=== PATIENT | male | born 1950 | race Caucasian/White ===

== ENCOUNTER 2019-05-25 03:12 | Inpatient (IN) | payer MEDICARE, MEDICAID ==
[~2019-05-25] VITALS: Ht 182.9 cm; Wt 67.3 kg
[~2019-05-25 03:12] MED LIST: ACET325T38 PO; ACHD5005 PO; ACYC400T21 PO; AMIN30LI PO; ASCO-262 PO; ASP325TEC PO; ASPI-808 PO; CALC-140 PO; CALC-913 PO; CHOL100045 PO; CLON1TAB27 PO; CLON2TAB22 PO; DEXT37.54 PO; DIVA125C PO; DONE5TAB8 PO; ESCI20TA45 PO; GABA300C PO; GLUC1KIT IJ; HYDR-757 PO; MAGN800O PO; MEMA10TA2 PO; MIRT15TA3 PO; MULT1TAB69 PO; POTA20TA15 PO; PRD20T PO; RISP2TAB3 PO; SENN-145 PO; TRAZ-190 PO; ZINC50TA58 PO
--- OUTSIDE RECORDS SUMMARY | 2019-05-25 03:18 | XMS REPORT | Clinical Summary ---
Author Author [facility] Organization [facility] Address Unknown Phone Unavailable Care Team Providers Care Felt Cementer Name Role Phone Ramsey Valladares MD PP Allergies Comments Active Allergy Reactions Severity Noted Date "get's real goofy & I'm not really nice to people". Haloperidol Decanoate 04/23/2011 Medications End Date Status Medication Sig Dispensed Refills Start Date Active donepezil (ARICEPT) 10 MG Take 10 mg by 0 tabletIndications: mouth daily. dementia Indications: dementia Active acetaminophen (TYLENOL) Take 650 mg 0 325 MG tabletIndications: by mouth Fever, Pain every 6 (six) hours as needed. 650 mg=2 tabs Indications: Fever, Pain Active magnesium hydroxide Take 30 mLs 0 (MAGNESIUM HYDROXIDE by mouth CONCENTRATED) 400 MG/5ML nightly as suspensionIndications: needed. Constipation Indications: Constipation Active Cholecalciferol (VITAMIN Take 1 0 D3) 1000 UNITS capsule by CAPSIndications: mouth daily. Nutritional Support Indications: Nutritional Support Active Calcium Carbonate Take 1 0 (CALCIUM 600 capsule by PO)Indications: mouth 2 (two) Nutritional Support times daily. Indications: Nutritional Support Active memantine (NAMENDA) 10 MG Take 10 mg by 0 tablet mouth 2 (two) times daily. Active LANTUS, insulin glargine, Inject 25 0 (LANTUS) 100 UNIT/ML Units into 2 injection the skin nightly. Active clonazePAM (KLONOPIN) 1 Take 1 mg by 0 MG tablet mouth daily. Active clonazePAM (KLONOPIN) 1 Take 2 mg by 0 MG tablet mouth every evening. 2 tab=2 mg Active hydrOXYzine (ATARAX) 25 Take 25 mg by 0 MG tablet mouth 4 (four) times daily. Active gabapentin (NEURONTIN) Take 300 mg 0 300 MG capsule by mouth 3 (three) times daily. Active potassium chloride SA Take 20 mEq 0 (K-DUR,KLOR-CON) 20 MEQ by mouth 2 tablet (two) times daily. Active Gabapentin, PHN, 600 MG Take 1 0 TABS capsule by mouth nightly. Active traZODone (DESYREL) 50 MG Take 50 mg by 0 tablet mouth nightly. Active LORazepam (ATIVAN) 2 Inject 1 mg 0 MG/ML into the injectionIndications: muscle daily Anxiety as needed. Indications: Feeling Anxious Active escitalopram (LEXAPRO) 10 Take 10 mg by 0 MG tablet mouth daily. Active permethrin (ELIMITE) 5 % Apply cream 60 g 0 cream to entire 3 body and wash off after 8 hrs . 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 Intramedullary Fixation 01/25/2012 Fracture, intertrochanteric, left femur 01/24/2013 Agitation 10/18/2012 Acute psychosis 08/01/2012 Accelerated hypertension 03/19/2012 DM (diabetes mellitus), type 2, uncontrolled 03/19/2012 CVA (cerebral vascular accident) 03/19/2012 Overview: New area diffusion restriction and associated T1 and T2 signal changes are present in the posterior left temporal lobe consistent with subacute infarct on MRI performed 08/05/2012 Depression 03/19/2012 Cognitive disorder 03/19/2012 Cocaine abuse 03/19/2012 Bipolar affective disorder 12/24/2011 Bipolar affective 05/07/2011 Vascular dementia 05/07/2011 History of CVA (cerebrovascular accident) 05/05/2011 Acute delirium 04/24/2011 Atherosclerotic cerebrovascular disease 04/24/2011 HTN (hypertension) 04/24/2011 Type II or unspecified type diabetes mellitus without mention of complication, not stated as uncontrolled Other problems related to lifestyle Other and unspecified hyperlipidemia Resolved Problems Problem Noted Date Resolved Date Suicidal ideations 03/19/2012 08/11/2012 DM (diabetes mellitus) 04/24/2011 10/17/2012 Immunizations Name Administration Dates Next Due Influenza IIV3 PFree 10/22/2012, 08/28/2011, 10/13/2008 Pneumococcal 10/22/2012, 06/25/2009 Polysaccharide (23-valent) Td(adult), adsorbed 04/03/2014, 06/25/2009 Social History Date Tobacco Use Types Packs/Day Years Used Current Every Day Smoker Cigarettes 0.25 Comments: Smoking History Packs/day: Daily/Cigarettes/1 pack Drinks/Week oz/Week Comments Alcohol Use No Control Partners Comments Sexually Active Female Not Currently Sex Assigned at Date Recorded Not on file Industry Job Start Date Occupation Not on file Not on file Not on file Travel End Travel History Travel Start No recent travel history available. Last Filed Vital Signs Reading Time Taken Comments Vital Sign 140/92 04/04/2013 10:26 PM CDT Blood Pressure 97 04/04/2013 10:26 PM CDT Pulse 36.7 C (98 F) 04/04/2013 10:26 PM CDT Temperature 18 04/04/2013 10:26 PM CDT Respiratory Rate 98% 04/04/2013 10:26 PM CDT Oxygen Saturation - - Inhaled Oxygen Concentration 77.1 kg (170 lb) 04/04/2013 4:58 PM CDT Weight 175.3 cm (5' 9") 04/04/2013 4:58 PM CDT Height 25.1 04/04/2013 4:58 PM CDT Body Mass Index Plan of Treatment Health Maintenance Due Date Last Done Comments Hepatitis C Screening 1950 Zoster Recombinant 1999 Vaccine (RZV,Shingrix) (1 of 2 - SVH 2 Dose Standard) Colon Cancer Screening 06/29/2013 06/29/2003, 06/29/2003 DTaP,Tdap,and Td Vaccines 04/04/2014 04/03/2014, 06/25/2009 (1 - Tdap) Pneumo-Vaccine: 65+Yrs (1 2014 10/22/2012, 06/25/2009 of 2 - PCV13) Influenza Vaccine (#1) 2019 10/22/2012, 08/28/2011, 10/13/2008 Pneumo-Vaccine: Peds (0-5 Aged Out 10/22/2012, 06/25/2009 No longer eligible based Yrs) & At-Risk Patients on patient's age to (6-64 Yrs) complete this topic Results Not on filefrom Last 3 Months Advance Directives Patient Medical Assistant Float Explanation Type Date Recorded ADVANCED DIRECTIVE LIVING WILL Advance Directives 08/10/2012 4:45 PM and Living Will ADVANCED DIRECTIVE LIVING WILL Advance Directives 08/24/2012 9:42 PM and Living Will ADVANCED DIRECTIVE LIVING WILL Advance Directives 10/24/2012 9:28 PM and Living Will Date Inactivated Comments Code Status Date Activated 10/24/2012 5:38 PM Full Code 10/17/2012 8:10 PM 08/24/2012 6:13 PM Full Code 08/10/2012 2:28 PM 08/10/2012 2:28 PM Full Code 08/01/2012 9:17 PM 05/06/2011 12:24 PM Full Code 04/23/2011 8:33 PM
--- OUTSIDE RECORDS SUMMARY | 2019-05-25 03:19 | XMS REPORT | Encounter Summary ---
Author Author [facility] Organization [facility] Address Unknown Phone Unavailable Care Team Providers Care Check Writer Salesperson Name Role Phone Ramsey Valladares MD PCP Encounter Details Care Team Description Date Type Department Provider, MD [address] [facility] [place] [address] 04/21/2013 [facility] HISTORICAL CONVERSION Encounter Social History Date Tobacco Use Types Packs/Day Years Used Current Every Day Smoker Cigarettes 0.25 Smokeless Tobacco: Never Used Drinks/Week oz/Week Comments Alcohol Use No Control Partners Comments Sexually Active Female Not Currently Sex Assigned at Date Recorded Not on file Industry Job Start Date Occupation Not on file Not on file Not on file Travel End Travel History Travel Start No recent travel history available. documented as of this encounter Plan of Treatment Not on filedocumented as of this encounter Visit Diagnoses Not on filedocumented in this encounter
--- OUTSIDE RECORDS SUMMARY | 2019-05-25 03:19 | XMS REPORT | Encounter Summary ---
Author Author [facility] Organization [facility] Address Unknown Phone Unavailable Care Team Providers Care Operations Associate Name Role Phone Ramsey Valladares MD PCP Encounter Details Care Team Description Date Type Department Link, Onbase 04/04/2013 [facility] Scans HISTORICAL CONVERSION Social History Date Tobacco Use Types Packs/Day [...] Not on filedocumented as of this encounter Procedures Comments Procedure Name Priority Date/Time Associated Diagnosis IMAGING STUDY 04/23/2013 12:32 PM CDT documented in this encounter Results * IMAGING STUDY (04/23/2013 12:32 PM CDT) Narrative Performed At Procedure Note Historical, [facility] Documents - 04/22/2013 6:08 AM CDT documented in this encounter Visit Diagnoses Not on filedocumented in this encounter
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
--- OUTSIDE RECORDS SUMMARY | 2019-05-25 03:19 | XMS REPORT | Encounter Summary ---
Author Author [facility] Organization [facility] Address Unknown Phone Unavailable Care Team Providers Care Maintenance Pipefitter Name Role Phone Ramsey Valladares MD PCP Encounter Details Care Team Description Date Type Department Historical, Zeny ProviderMD [address] Address [place] [address] 04/04/2013 [facility] HISTORICAL CONVERSION Encounter Social History Date Tobacco [...] Name Priority Date/Time Associated Diagnosis CT HEAD Routine 04/04/2013 documented in this encounter Results * CT HEAD (04/04/2013) CT Head Comment: Updated from [facility] History Specimen Performing Organization Address City/State/Zipcode Phone Number [facility] [address] [place] [address] documented in this encounter Visit Diagnoses Not on filedocumented in this encounter
--- OUTSIDE RECORDS SUMMARY | 2019-05-25 03:19 | XMS REPORT | Encounter Summary ---
Author Author [facility] Organization [facility] Address Unknown Phone Unavailable Care Team Providers Care Pig Breeder Name Role Phone Ramsey Valladares MD PCP Encounter Details Care Team Description Date Type Department Trihs Santiago RN 08/23/2014 Abstract [facility] [address], [place] [id number] Social History Date Tobacco Use Types Packs/Day [...] Comments Procedure Name Priority Date/Time Associated Diagnosis EKG 12-LEAD Routine 04/04/2013 XR CHEST Routine 01/24/2013 LVEF Routine 08/06/2012 US CAROTID DOPPLER Routine 08/06/2012 ECHOCARDIOGRAM Routine 08/06/2012 COLONOSCOPY Routine 06/29/2003 documented in this encounter Results * EKG 12-LEAD (04/04/2013) EKG 12-LEAD from topics * XR CHEST (01/24/2013) XR Chest from topics * LVEF (08/06/2012) Pathologist [facility] LVEF Cath LVEF CT LVEF Echo LVEF MR LVEF Nuclear LVEF 60 * ECHOCARDIOGRAM (08/06/2012) Pathologist [facility] from topics ECHOCARDIOGRAM * US CAROTID DOPPLER (08/06/2012) Pathologist [facility] US Carotid from topics Doppler * COLONOSCOPY (06/29/2003) Pathologist [facility] Colonoscopy from topics documented in this encounter Visit Diagnoses Not on filedocumented in this encounter
--- OUTSIDE RECORDS SUMMARY | 2019-05-25 03:20 | XMS REPORT | Encounter Summary ---
Author Author [facility] Organization [facility] Address Unknown Phone Unavailable Care Team Providers Care Central Processing Tech Name Role Phone Ramsey Valladares MD PCP Reason for Visit * Reason Comments Fall Encounter Details Care Team Description Date Type Department Manjit Artis MD [address] [place], [place] [id number] Bryon Flaherty, [address] [place], [place] [id number] Sydnie Avery MD [address] [place] [address] Femur fracture (HCC) (Primary Dx); Inferior pubic ramus fracture (HCC); Fall from other slipping, tripping, or stumbling 01/24/2013 [facility] En[facility] 01/27/[address] [id number] [place], [place] [id number] Social History Date Tobacco Use Types Packs/Day [...] Signs Reading Time Taken Comments Vital Sign 105/76 01/27/2013 12:00 PM CDT Blood Pressure 107 01/27/2013 12:00 PM CDT Pulse 37 C (98.6 F) 01/27/2013 12:00 PM CDT Temperature 20 01/27/2013 12:00 PM CDT Respiratory Rate 93% 01/27/2013 12:00 PM CDT Oxygen Saturation - - Inhaled Oxygen Concentration 72.8 kg (160 lb 6.4 oz) 01/27/2013 3:29 AM CDT std. linens; call light; phone Weight 188 cm (6' 2") 01/27/2013 3:29 AM CDT Height 20.59 01/27/2013 3:29 AM CDT Body Mass Index documented in this encounter Discharge Summaries * Daniel Kahn PA-C - 01/30/2013 7:57 AM CDT [place] [phone] Orthopedic Surgery Discharge Summary Patient Name: Paul Peters : 1950 PCP: Ramsey Valladares MD LOS: 3 days Reason for Admission: FRACTURE OF L HIP Date of Admission: 01/24/2013 Date of Discharge: 01/27/2013 Final Diagnosis and other Diagnoses: Active Hospital Problems: Diagnoses Date Noted *Principal Problem*: Hip fracture, intertrochanteric [820.21] 01/25/2013 S/p Reduction. 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] 01/25/2013 Fracture, intertrochanteric, left femur [820.21] 01/24/2013 DM (diabetes mellitus), type 2, uncontrolled [250.02] 03/19/2012 Cognitive disorder [294.9] 03/19/2012 Cocaine abuse [305.60] 03/19/2012 Bipolar affective disorder [296.80] 12/24/2011 Vascular dementia [290.40] 05/07/2011 History of CVA (cerebrovascular accident) [V12.54] 05/05/2011 HTN (hypertension) [401.9] 04/24/2011 Resolved Hospital Problems Diagnoses Date Noted Date Resolved Procedure: Reduction intramedullary fixation Complications: None Condition on Admission: good Condition on Discharge: good Hospital Course: Patient underwent the above stated procedure with no inter-op erative and post-operative complications. Patient was transferred from operatin g room suite to PACU. Once patient was tolerating diet and activity also remain ed afebrile with vital signs stable patient was transfered. Labs: No results found for this basename: HGB,HCT,PLT in the last 72 hours No results found for this basename: LABPROT:3,INR:3 in the last 72 hours Patient Instructions: Discharge Medication List as of 01/27/2013 11:42 AM START taking these medications Details hydrocodone-acetaminophen (NORCO) 5-325 MG Take 1-2 tablets by mouth every 4 (fo ur) hours as needed for Pain for 40 doses., Starting 01/27/2013, Until Discontinu ed, Print CONTINUE these medications which have CHANGED Details clonazePAM (KLONOPIN) 0.5 MG tablet Take 1 tablet (0.5 mg total) by mouth nightl y. Indications: Manic-Depression, Starting 01/27/2013, Until Discontinued, Print !! QUEtiapine (SEROQUEL) 200 MG tablet Take 1 tablet (200 mg total) by mouth nig htly., Starting 01/27/2013, Until Discontinued, Print !! quetiapine (SEROQUEL) 50 MG tablet Take 1 tablet (50 mg total) by mouth 2 (tw o) times daily as needed. Indications: Severe Agitation, Starting 01/27/2013, Unt il Discontinued, Print !! quetiapine (SEROQUEL) 50 MG tablet Take 1 tablet (50 mg total) by mouth 3 (th ree) times daily., Starting 01/27/2013, Until Discontinued, Print traZODone (DESYREL) 50 MG tablet Take 1 tablet (50 mg total) by mouth nightly as needed. Indications: Trouble Sleeping, Starting 01/27/2013, Until Discontinued, Print !! - Potential duplicate medications found. Please discuss with provider. CONTINUE these medications which have NOT CHANGED Details acetaminophen (TYLENOL) 325 MG tablet Take 650 mg by mouth every 6 (six) hours a s needed. 650 mg=2 tabs Indications: Fever, Pain, Until Discontinued, Historical Med aspirin 325 MG tablet Take 325 mg by mouth daily., Starting 08/10/2012, Until Di scontinued, Historical Med atorvastatin (LIPITOR) 20 MG tablet Take 20 mg by mouth nightly. , Until Discont inued, Historical Med Calcium Carbonate (CALCIUM 600 PO) Take 1 capsule by mouth 2 (two) times daily. Indications: Nutritional Support, Until Discontinued, Historical Med Cholecalciferol (VITAMIN D3) 1000 UNITS CAPS Take 1 capsule by mouth. Indication s: Nutritional Support, Until Discontinued, Historical Med !! divalproex (DEPAKOTE ER) 250 MG 24 hr tablet Take 750 mg by mouth nightly. 75 0 mg=3 tabs Indications: bipoloar, Until Discontinued, Historical Med !! divalproex (DEPAKOTE ER) 500 MG 24 hr tablet Take 500 mg by mouth daily. Chanell cations: bipolar, Until Discontinued, Historical Med donepezil (ARICEPT) 10 MG tablet Take 10 mg by mouth nightly. Indications: ross ntia, Until Discontinued, Historical Med LANTUS, insulin glargine, (LANTUS) 100 UNIT/ML injection Inject 25 Units into th e skin nightly. , Starting 10/24/2012, Until Discontinued, Historical Med magnesium hydroxide (MAGNESIUM HYDROXIDE CONCENTRATED) 400 MG/5ML suspension Bret e 30 mLs by mouth nightly as needed. Indications: Constipation, Until Discontinu ed, Historical Med memantine (NAMENDA) 10 MG tablet Take 10 mg by mouth 2 (two) times daily., Until Discontinued, Historical Med NOVOLOG, insulin aspart, (NOVOLOG) 100 UNIT/ML injection Inject 0-16 Units into the skin 4 (four) times daily before meals and nightly. Sliding scale: BS <150=0 units BS 151-200=4 units BS 201-250=8 units BS 251-300=12 units BS 301-350=14 units BS 351-400=16 units BS >401 call PCP, Starting 10/24/2012, Until Discontinued, Historical Med !! - Potential duplicate medications found. Please discuss with provider. STOP taking these medications nicotine (NICODERM CQ) 14 MG/24HR Activity: Hip precautions Diet: regular diet Follow-up with Dr Avery in 2 weeks or after discharge from [facility]. Patient Teaching: Instructions given to: CARON Posey Electronic Signature 01/30/2013 7:57 AM * Kenya Hayden RN - 01/27/2013 11:00 AM CDT Note deleted. Had not been cosigned. documented in this encounter Medications at Time [...] mouth daily. Nutritional Support Indications: Nutritional Support donepezil (ARICEPT) 10 MG Take 10 mg by 0 tabletIndications: mouth daily. dementia Indications: dementia 10/24/2012 LANTUS, insulin glargine, Inject 25 0 (LANTUS) 100 UNIT/ML Units into injection the skin nightly. magnesium hydroxide Take 30 mLs 0 (MAGNESIUM HYDROXIDE by mouth CONCENTRATED) 400 MG/5ML nightly as suspensionIndications: needed. Constipation Indications: Constipation memantine (NAMENDA) 10 MG Take 10 mg by 0 tablet mouth 2 (two) times daily. 08/10/2012 04/04/2013 aspirin 325 MG tablet Take 325 mg 0 by mouth daily. 04/04/2013 atorvastatin (LIPITOR) 20 Take 20 mg by 0 MG tablet mouth nightly. 01/27/2013 04/04/2013 clonazePAM (KLONOPIN) 0.5 Take 1 tablet 60 tablet 0 MG tabletIndications: (0.5 mg Bipolar Mood Disorder total) by mouth nightly. Indications: Manic-Depress ion 04/04/2013 divalproex (DEPAKOTE ER) Take 750 mg 0 250 MG 24 hr by mouth tabletIndications: nightly. 750 bipoloar mg=3 tabs Indications: bipoloar 04/04/2013 divalproex (DEPAKOTE ER) Take 500 mg 0 500 MG 24 hr by mouth tabletIndications: daily. bipolar Indications: bipolar 01/27/2013 04/04/2013 hydrocodone-acetaminophen Take 1-2 40 tablet 1 (NORCO) 5-325 MG tablets by mouth every 4 (four) hours as needed for Pain for 40 doses. 10/24/2012 04/04/2013 NOVOLOG, insulin aspart, Inject 0-16 0 (NOVOLOG) 100 UNIT/ML Units into injection the skin 4 (four) times daily before meals and nightly. Sliding scale: BS <150=0 units BS 151-200=4 units BS 201-250=8 units BS 251-300=12 units BS 301-350=14 units BS 351-400=16 units BS >401 call PCP 01/27/2013 04/04/2013 QUEtiapine (SEROQUEL) 200 Take 1 tablet 30 tablet 0 MG tablet (200 mg total) by mouth nightly. 01/27/2013 04/04/2013 quetiapine (SEROQUEL) 50 Take 1 tablet 30 tablet 0 MG tabletIndications: (50 mg total) Severe Agitation by mouth 2 (two) times daily as needed. Indications: Severe Agitation 01/27/2013 04/04/2013 quetiapine (SEROQUEL) 50 Take 1 tablet 90 tablet 0 MG tablet (50 mg total) by mouth 3 (three) times daily. 01/27/2013 04/04/2013 traZODone (DESYREL) 50 MG Take 1 tablet 30 tablet 0 tabletIndications: (50 mg total) Insomnia by mouth nightly as needed. Indications: Trouble Sleeping documented as of this encounter Progress Notes * Ap Burt, RN - 01/27/2013 12:50 PM CDT Report called to [facility] and the nurse had no further questions or concerns * Katherin Gamboa - 01/27/2013 12:07 PM CDT Observations: Pt is being discharged to [facility] today. Interventions: I contacted [facility] and they are having A&A picking tech the pt at 1315 today. I faxed his orders and meds to [facility]. I talked to his son and [facility] Carrington Harshad to update him as well and answered some questions he had. Plan: Transfer to [facility] today. Katherin Gamboa LMSW * Lon Tate MD - 01/27/2013 11:14 AM CDT [address] [phone] Hospitalist Daily Progress Note Patient Name: Paul Peters : 1950 Referring Physician: Ramsey Valladares MD Loc: 311/311-A Admission Date: 01/24/2013 LOS: 3 days Chief Complaint: Hip fracture, intertrochanteric Subjective: Afebrile. Patient afebrile and not in Distress. Planned DC to Rehab today per Or thopedics. Scheduled Meds: aspirin 325 mg Oral Daily atorvastatin 20 mg Oral Nightly clonazePAM 0.5 mg Oral Nightly divalproex 500 mg Oral Daily divalproex 750 mg Oral Nightly donepezil 10 mg Oral Nightly LANTUS (insulin glargine) 25 Units Subcutaneous Nightly memantine 10 mg Oral BID NOVOLOG (insulin aspart) 0-28 Units Subcutaneous AC & HS QUEtiapine 200 mg Oral Nightly quetiapine 50 mg Oral TID Continuous Infusions: PRN Meds: hydrocodone-acetaminophen, naloxone, oxyCODONE, traMADol, traZODone Objective: Vital signs in last 24 hours: Temp: [97.8 F (36.6 C)-98.3 F (36.8 C)] 98 F (36.7 C) Heart Rate: [100-116] 111 Resp: [16-18] 18 BP: (100-121)/(56-80) 121/80 mmHg SpO2: [92 %-95 %] 95 % MAP (calculated): [71 mm Hg-94 mm Hg] 94 mm Hg Wt Readings from Last 3 Encounters: 01/27/13 160 lb 6.4 oz (72.757 kg) 10/18/12 176 lb (79.833 kg) 08/10/12 168 lb (76.204 kg) Intake/Output: 01/26 0701 - 01/27 0700 In: 1510 [P.O.:1490; I.V.:20] Out: 650 [Urine:650] Intake/Output this shift: I/O this shift: In: 600 [P.O.:600] Out: - General appearance: Sleepy but easily awakens and afebrile. Not in distress Head: Normocephalic, Atraumatic . No Tenderness. Eyes: No Jaundice. No Eye Discharge. No Conjunctivitis. ENT: No Septal Deviation. Moist Oral mucosa. No Thyroid enlargement Neck: No JVD. No Adenopathy. No Rigidity. No Stridor. Lungs: clear to auscultation bilaterally. No Wheezing. No Crackles. No Rhonci Chest wall: No Thrills. No Crepitations. no tenderness . Heart: regular rhythm, no click, no rub, no gallop. Abdomen: soft, non-tender; no masses, no organomegaly. No Guarding Extremities: no cyanosis , no leg edema. Dressings intact. Pulses: 2+ and symmetric and regular. Labs: Lab 01/26/13 1122 01/25/13 0625 01/24/13 1824 01/24/13 0743 WBC 8.7 -- -- 7.5 HGB 11.2* 11.9* 14.0 -- HCT 33.5* 35.5* 41.6 -- PLT 125* -- -- 153 NEUTOPHILPCT 53.0 -- -- 47.1 MONOPCT 10.8* -- -- 9.7* Lab 01/26/13 1122 01/24/13 0743 NA 141 142 K 3.7 4.0 CL 104 106 CO2 29 30 BUN 21* 19 CREATININE 1.0 1.1 GLU 140* 147* CALCIUM 8.2* 9.1 LABALBU -- -- PROT -- 7.1 BILITOT -- 0.6 ALKPHOS -- 101 ALT -- 17 AST -- 20 Lab Results Component Value Date CKMB <0.2 08/05/2012 TROPONINI <0.006 08/05/2012 Lab 01/24/13 0743 APTT 36.2* INR 1.1 LABPROT 14.2 Lab 01/27/13 0921 01/26/13 2116 01/26/13 1714 01/26/13 1235 01/26/13 0832 2104 NGLU 107* 138* 158* 138* 121* 167* Urine Culture: No Growth Imaging: Xr Chest 1 View 01/24/2013 Impression: 1. Stable exam, without acute process visualized X-ray Hip Left Ap And Lateral 01/24/2013 Impression: Intertrochanteric fracture of the proximal left femur. Probable fracture left inferior pubic ramus. Question location Murcia catheter ba lloon versus artifact on the AP films. X-ray Hip Intraoperative Left 01/24/2013 Impression: Internal fixation of the intertrochanteric fracture. X-ray Left Knee 2 Views 01/24/2013 Impression: No acute bony pathology. No significant degenerative lacho nge. .. .. Ct Head Without Contrast 01/24/2013 Impression: 1. Advanced brain atrophy is abnormal for the patient's age. 2. There is no acute finding. 3. The patient has encephalomalacia within th e left posterior cerebral artery distribution. 4. Appearance is unchanged from t he study of [address] Cervical Spine Without Contrast 01/24/2013 Impression: 1. The cervical spine has mild diffuse degeneration. 2. No acute bony abnormality is seen. 3. The soft tissues are unremarkable. ASSESSMENT: Principal Problem: *Hip fracture, intertrochanteric Active Problems: HTN (hypertension) History of CVA (cerebrovascular accident) Vascular dementia Bipolar affective disorder DM (diabetes mellitus), type 2, uncontrolled Cognitive disorder Cocaine abuse Fracture, intertrochanteric, left femur Cortical blindness PLAN: Rehab today per Orthopedics. Checked UA--Urine Culture: Negative BSG and SSI Stop IV Fluids CBC and BMP ---OK Discussed with Patient and Staff Lon Tate MD Electronic Signature 01/27/2013 11:14 AM * Ailyn Chamberlain RN - 01/27/2013 7:04 AM CDT [address] [phone] Orthopedic Surgery Progress Note Patient Name: Paul Peters : 1950 Referring Physician: Ramsey Valladares MD Loc: 311/311-[id number] Admission Date: 01/24/2013 LOS: 3 days Chief Complaint: Hip fracture, intertrochanteric Subjective: Patient without complaints Medications: Oxycodone prn for pain Objective: Expected acute blood loss anemia; mod- max assist for transfers; dif ficulty following commands Labs: (Last 72 hours) Recent Labs Basename 01/24/13 0743 LABPROT 14.2 INR 1.1 Recent Labs Basename 01/26/13 1122 01/24/13 0743 NA 141 142 K 3.7 4.0 CL 104 106 CO2 29 30 BUN 21* 19 CREATININE 1.0 1.1 GLU 140* 147* Recent Labs Basename 01/26/13 1122 01/25/13 0625 01/24/13 1824 01/24/13 0743 WBC 8.7 -- -- 7.5 HGB 11.2* 11.9* 14.0 -- HCT 33.5* 35.5* 41.6 -- PLT 125* -- -- 153 Vital signs: Temp: [97.1 F (36.2 C)-98.3 F (36.8 C)] 98.3 F (36.8 C) Heart Rate: [100-116] 114 Resp: [16-17] 16 BP: (100-126)/(56-75) 104/67 mmHg SpO2: [92 %-96 %] 93 % MAP (calculated): [71 mm Hg-92 mm Hg] 79 mm Hg Physical Exam: Left hip incision benign; n/v intact Assessment/Plan: Pathway; dc planning-ok to dc to assisted when ok with med ical; f/u [address] Avery; referral completed Principal Problem: *Hip fracture, intertrochanteric Active Problems: HTN (hypertension) History of CVA (cerebrovascular accident) Vascular dementia Bipolar affective disorder DM (diabetes mellitus), type 2, uncontrolled Cognitive disorder Cocaine abuse Fracture, intertrochanteric, left femur Cortical blindness Ailyn Chamberlain RN Electronic Signature 01/27/2013 7:04 AM * Veda Justen Any - 01/26/2013 11:12 AM CDT PT Daily Treatment Pt Name: Paul Obandofausto Physician: Sydnie Avery MD Subjective: Permission from nursing, to attempt bed to chair transfer. Pt was u nable to fully orient to situation, only exclaiming profanity. Time: 0530-4013 Duration: 25 minutes Charges: 1 unit therapeutic activity+2, 1 unit exercise Objective: Pt was lying in bed, with LE supported on pillows. Pt presents with flat affect. Pt was provided passive-> active-assisted ROM to the L LE to promote gross joint motion. Pt guarded against pain. Pt was then transferred to sitting over the bed side requiring Maximal Assistance of 2 using draw sheet. Pt sat on the bed side with poor-fair balance, shifted away from his involved(L) side. Pt was given time to acclimate to position, then attempted sit-stand. Pt required Maximal Assistance-Moderate Assistance to initiate transfer and to assume stance. Once on his feet, within the walker, pt was able to maintain fair-good stance with Contact Guard Assistance. Attempted pre-gait of pt advancing LE's. However, pt would / could not initiate. Pt required assistance to direct the L foot and could not picking tech the R. Pt was assisted back to bed and positioned appropriately with pillow support. Assessment: Pt with minimal attention to activity. He does stimulate to pain re sponse, but lacks motivation to promote active assistance with transfers or pre- gait activity. Plan: Continue per Plan of Care. PORSCHE Blue * Lon Tate MD - 01/26/2013 10:56 AM CDT [place] [phone] Hospitalist Daily Progress Note Patient Name: Paul Peters : 1950 Referring Physician: Ramsey Valladares MD Loc: 311/311-A Admission Date: 01/24/2013 LOS: 2 days Chief Complaint: Hip fracture, intertrochanteric Subjective: Afebrile. Urinary Retention and had to be straight catheterized last night. Has been having Frequent and scanty Urination. PO Intake is OK. Planned DC per Ortho pedics tomorrow. Scheduled Meds: aspirin 325 mg Oral Daily atorvastatin 20 mg Oral Nightly clonazePAM 0.5 mg Oral Nightly divalproex 500 mg Oral Daily divalproex 750 mg Oral Nightly donepezil 10 mg Oral Nightly LANTUS (insulin glargine) 25 Units Subcutaneous Nightly memantine 10 mg Oral BID NOVOLOG (insulin aspart) 0-28 Units Subcutaneous AC & HS QUEtiapine 200 mg Oral Nightly quetiapine 50 mg Oral TID Continuous Infusions: sodium chloride 50 mL/hr at 01/26/13 0540 PRN Meds: hydrocodone-acetaminophen, naloxone, oxyCODONE, traMADol, traZODone Objective: Vital signs in last 24 hours: Temp: [97.1 F (36.2 C)-98.8 F (37.1 C)] 97.1 F (36.2 C) Heart Rate: [102-115] 108 Resp: [16-18] 16 BP: (95-126)/(62-83) 126/75 mmHg SpO2: [90 %-96 %] 96 % MAP (calculated): [76 mm Hg-96 mm Hg] 92 mm Hg Wt Readings from Last 3 Encounters: 01/26/13 198 lb 6.4 oz (89.994 kg) 10/18/12 176 lb (79.833 kg) 08/10/12 168 lb (76.204 kg) Intake/Output: 01/25 0701 - 01/26 0700 In: 2083 [P.O.:850; I.V.:1183] Out: 700 [Urine:700] Intake/Output this shift: I/O this shift: In: 220 [P.O.:220] Out: 0 General appearance: alert, awake and afebrile. Not in distress Head: Normocephalic, without obvious abnormality, atraumatic Eyes: No Jaundice. No Conjunctivitis. No Eye Discharge. ENT: No Septal Deviation. No Thyroid enlargement. Moist Oral mucosa. Neck> No JVD. No Adenopathy. No Rigidity Lungs: clear to auscultation bilaterally. No Wheezing. No Crackles. Chest wall: no tenderness . No Thrills. No Crepitations. Heart: regular rhythm, S1, S2 normal, no click, rub, no gallop Abdomen: soft, non-tender; bowel sounds normal; no masses, no organomegaly Extremities: extremities normal, atraumatic, no cyanosis , no leg edema Pulses: 2+ and symmetric and regular. Labs: Lab 01/25/13 0625 01/24/13 1824 01/24/13 0743 WBC -- -- 7.5 HGB 11.9* 14.0 14.3 HCT 35.5* 41.6 42.7 PLT -- -- 153 NEUTOPHILPCT -- -- 47.1 MONOPCT -- -- 9.7* Lab 01/24/13 0743 NA 142 K 4.0 CL 106 CO2 30 BUN 19 CREATININE 1.1 GLU 147* CALCIUM 9.1 LABALBU -- PROT 7.1 BILITOT 0.6 ALKPHOS 101 ALT 17 AST 20 Lab Results Component Value Date CKMB <0.2 08/05/2012 TROPONINI <0.006 08/05/2012 Lab 01/24/13 0743 APTT 36.2* INR 1.1 LABPROT 14.2 Lab 01/26/13 0832 01/25/13 2104 01/25/13 1721 01/25/13 1212 01/25/13 0748 2203 NGLU 121* 167* 173* 189* 139* 157* Imaging: Xr Chest 1 View 01/24/2013 Impression: 1. Stable exam, without acute process visualized X-ray Hip Left Ap And Lateral 01/24/2013 Impression: Intertrochanteric fracture of the proximal left femur. Probable fracture left inferior pubic ramus. Question location Murcia catheter ba lloon versus artifact on the AP films. X-ray Hip Intraoperative Left 01/24/2013 Impression: Internal fixation of the intertrochanteric fracture. X-ray Left Knee 2 Views 01/24/2013 Impression: No acute bony pathology. No significant degenerative lacho nge. .. .. Ct Head Without Contrast 01/24/2013 Impression: 1. Advanced brain atrophy is abnormal for the patient's age. 2. There is no acute finding. 3. The patient has encephalomalacia within th e left posterior cerebral artery distribution. 4. Appearance is unchanged from t he study of [address] Cervical Spine Without Contrast 01/24/2013 Impression: 1. The cervical spine has mild diffuse degeneration. 2. No acute bony abnormality is seen. 3. The soft tissues are unremarkable. ASSESSMENT: Principal Problem: *Hip fracture, intertrochanteric Active Problems: HTN (hypertension) History of CVA (cerebrovascular accident) Vascular dementia Bipolar affective disorder DM (diabetes mellitus), type 2, uncontrolled Cognitive disorder Cocaine abuse Fracture, intertrochanteric, left femur Cortical blindness PLAN: Rehab soon Check UA BSG and SSI Stop IV Fluids CBC and BMP today. Discussed with Patient and Staff Lon Tate MD Electronic Signature 01/26/2013 10:56 AM * Ailyn Chamberlain RN - 01/26/2013 7:37 AM CDT [address] [phone] Orthopedic Surgery Progress Note Patient Name: Paul Peters : 1950 Referring Physician: Ramsey Valladares MD Loc: 311/311-A Admission Date: 01/24/2013 LOS: 2 days Chief Complaint: Hip fracture, intertrochanteric Subjective: Patient without complaints Medications: norco prn for pain Objective: Expected acute blood loss anemia; mod- max assist for transfers; dif ficulty following commands Labs: (Last 72 hours) Recent Labs Basename 01/24/13 0743 LABPROT 14.2 INR 1.1 Recent Labs Basename 01/24/13 0743 NA 142 K 4.0 CL 106 CO2 30 BUN 19 CREATININE 1.1 GLU 147* Recent Labs Basename 01/25/13 0625 01/24/13 1824 01/24/13 0743 WBC -- -- 7.5 HGB 11.9* 14.0 14.3 HCT 35.5* 41.6 42.7 PLT -- -- 153 Vital signs: Temp: [97.1 F (36.2 C)-98.8 F (37.1 C)] 97.1 F (36.2 C) Heart Rate: [102-115] 102 Resp: [16-18] 16 BP: (95-122)/(62-83) 106/62 mmHg SpO2: [90 %-95 %] 90 % MAP (calculated): [76 mm Hg-96 mm Hg] 77 mm Hg Physical Exam: Left hip incision benign; n/v intact Assessment/Plan: Pathway; dc planning-ok to dc to assisted when ok with med ical; f/u [address] Avery; referral completed Principal Problem: *Hip fracture, intertrochanteric Active Problems: HTN (hypertension) History of CVA (cerebrovascular accident) Vascular dementia Bipolar affective disorder DM (diabetes mellitus), type 2, uncontrolled Cognitive disorder Cocaine abuse Fracture, intertrochanteric, left femur Cortical blindness Ailyn Chamberlain RN Electronic Signature 01/26/2013 7:37 AM * Rolan Silver RN - 01/26/2013 5:44 AM CDT Numerous attmepts to get patient to void during the night. Bladder scan [address] Cath x1 with 375 ml urine return. 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] 01/25/2013 Fracture, intertrochanteric, left femur [820.21] 01/24/2013 DM (diabetes mellitus), type 2, uncontrolled [250.02] 03/19/2012 Cognitive disorder [294.9] 03/19/2012 Cocaine abuse [305.60] 03/19/2012 Bipolar affective disorder [296.80] 12/24/2011 Vascular dementia [290.40] 05/07/2011 History of CVA (cerebrovascular accident) [V12.54] 05/05/2011 HTN (hypertension) [401.9] 04/24/2011 Resolved Hospital Problems Diagnoses Date Noted Date Resolved Past Medical History: Past Medical History Diagnosis Date CVA (cerebral infarction) COPD (chronic obstructive pulmonary disease) Diabetes mellitus Hypertension Bipolar disorder Substance abuse/dependence crack cocaine, THC Alcohol dependence, episodic History of medication noncompliance Tobacco abuse disorder Stroke 08/05/12 history of CVA's Past Surgical History: Past Surgical History Procedure Date Eye surgery Hip fracture surgery 01/24/2013 Left intertrochanteric hip fracture. Diagnosis: left hip fracture Subjective: Patient admitted after fall with L LE pain. Found to have a hip frac ture. Surgery 01-24-13 for L hip ORIF. Chart states patient lives at [facility]. Baseline Activity Level: unsure, patient is a very unreliable historian Signs of Abuse: defer to nursing Weight bearing status: WBAT Mental Status: alert, oriented to person only, states he likes to go by his [facility] he name "oTsha" Vision: very poor vision Hearing: WFL Speech: WFL ROM: R LE WFL, L LE ROM very limited due to pain Strength: R LE WFL, L LE <3/5 Sensation/ Pain: pain in L LE Pain ratin/10 Bed Mobility: supine>sit max 1, mod 1 Sitting Balance: poor, min to SBA to sit EOB Standing: Sit>stand with mod 2, rolling walker. Patient has difficulty following directions for sit>stand, often have to guide patient [id number] in order to follow cues correctly. Transfers: bed>chair with mod 2. Patient hesitant to weightbear on L LE due to pain. Posture: WFL Gait: Not assessed due to pain Other: Patient left up in chair with needs in place. Suggested to nurse that pat ient have bulb type call light instead of remote. Discharge Plans: recommend sub-acute Assessment: Patient demonstrates decreased strength, ROM, mobility, transfers, g ait, and safety. Recommend continued PT to address these deficits. Patient Goals: not stated ST) supine<>sit with min A. 2) Transfers with min A, rolling walker. 3) Ambulate x 20 ft with min A, rolling walker. 4) LE exercises with vc'ing. LT) Ambulate x 100 ft with SBA. Time Frame: STG 2 weeks, LTG 4 weeks Plan: See patient daily Today's Charge: 1 eval, 1 therapeutic activity Maureen Concepcion PT Electronic Signature 01/25/2013 12:38 PM * Ailyn Chamberlain RN - 01/25/2013 9:41 AM CDT [place] [id number] Orthopedic Surgery Progress Note Patient Name: Paul Peters : 1950 Referring Physician: Ramsey Valladares MD Loc: 311/311-A Admission Date: 01/24/2013 LOS: 1 day Chief Complaint: Hip fracture, intertrochanteric Subjective: Patient without complaints Medications: norco prn for pain Objective: Expected acute blood loss anemia; P.T. consult pending Labs: (Last 72 hours) Recent Labs Basename 01/24/13 0743 LABPROT 14.2 INR 1.1 Recent Labs Basename 01/24/13 0743 NA 142 K 4.0 CL 106 CO2 30 BUN 19 CREATININE 1.1 GLU 147* Recent Labs Basename 01/25/13 0625 01/24/13 1824 01/24/13 0743 WBC -- -- 7.5 HGB 11.9* 14.0 14.3 HCT 35.5* 41.6 42.7 PLT -- -- 153 Vital signs: Temp: [97.2 F (36.2 C)-98.8 F (37.1 C)] 98.8 F (37.1 C) Heart Rate: [91-109] 105 Resp: [15-22] 16 BP: (115-155)/(80-103) 115/82 mmHg SpO2: [90 %-100 %] 96 % MAP (calculated): [93 mm Hg-118 mm Hg] 93 mm Hg MAP (mmHg): [92-110] 98 Physical Exam: Left hip incision benign; n/v intact Assessment/Plan: Pathway; dc planning-social work consult Principal Problem: *Hip fracture, intertrochanteric Active Problems: HTN (hypertension) History of CVA (cerebrovascular accident) Vascular dementia Bipolar affective disorder DM (diabetes mellitus), type 2, uncontrolled Cognitive disorder Cocaine abuse Fracture, intertrochanteric, left femur Cortical blindness Ailyn Chamberlain RN Electronic Signature 01/25/2013 9:41 AM * Bryon Flaherty, DO - 01/25/2013 9:10 AM CDT [place] [phone] Hospitalist Daily Progress Note Patient Name: Paul Peters : 1950 Referring Physician: Ramsey Valladares MD Loc: 311/311-A Admission Date: 01/24/2013 LOS: 1 day Chief Complaint: Hip fracture, intertrochanteric Subjective: He has no complaints, no fever, no pain Scheduled Meds: aspirin 325 mg Oral Daily atorvastatin 20 mg Oral Nightly ceFAZolin (ANCEF) IV 2 g Intravenous Q8H PRIMO clonazePAM 0.5 mg Oral Nightly divalproex 500 mg Oral Daily divalproex 750 mg Oral Nightly donepezil 10 mg Oral Nightly LANTUS (insulin glargine) 25 Units Subcutaneous Nightly memantine 10 mg Oral BID NOVOLOG (insulin aspart) 0-28 Units Subcutaneous AC & HS QUEtiapine 200 mg Oral Nightly quetiapine 50 mg Oral TID Continuous Infusions: lactated ringers 100 mL/hr at 01/25/13 0623 PRN Meds: fentaNYL, fentaNYL, hydrocodone-acetaminophen, HYDROmorphone, morphin e, naloxone, oxyCODONE, traMADol, traZODone Objective: Vital signs in last 24 hours: Temp: [97.2 F (36.2 C)-98.8 F (37.1 C)] 98.8 F (37.1 C) Heart Rate: [81-109] 105 Resp: [15-22] 16 BP: (115-155)/(80-103) 115/82 mmHg SpO2: [90 %-100 %] 96 % MAP (calculated): [93 mm Hg-118 mm Hg] 93 mm Hg MAP (mmHg): [91-110] 98 Wt Readings from Last 3 Encounters: 01/24/13 180 lb (81.647 kg) 10/18/12 176 lb (79.833 kg) 08/10/12 168 lb (76.204 kg) Intake/Output: 01/24 0701 - 01/25 0700 In: 1211 [P.O.:100; I.V.:1111] Out: 380 [Urine:380] Intake/Output this shift: I/O this shift: In: 150 [P.O.:150] Out: 125 [Urine:125] General appearance: alert, appears stated age and cooperative Head: Normocephalic, without obvious abnormality, atraumatic Eyes: negative Lungs: clear to auscultation bilaterally Chest wall: no tenderness Heart: regular rate and rhythm, S1, S2 normal, no murmur, click, rub or gallop Abdomen: soft, non-tender; bowel sounds normal; no masses, no organomegaly Extremities: extremities normal, atraumatic, no cyanosis or edema Pulses: 2+ and symmetric Labs: Lab 01/25/13 0625 01/24/13 1824 01/24/13 0743 WBC -- -- 7.5 HGB 11.9* 14.0 14.3 HCT 35.5* 41.6 42.7 PLT -- -- 153 NEUTOPHILPCT -- -- 47.1 MONOPCT -- -- 9.7* Lab 01/24/13 0743 NA 142 K 4.0 CL 106 CO2 30 BUN 19 CREATININE 1.1 GLU 147* CALCIUM 9.1 LABALBU -- PROT 7.1 BILITOT 0.6 ALKPHOS 101 ALT 17 AST 20 Lab Results Component Value Date CKMB <0.2 08/05/2012 TROPONINI <0.006 08/05/2012 Lab 01/24/13 0743 APTT 36.2* INR 1.1 LABPROT 14.2 Lab 01/25/13 0748 01/24/13 2203 01/24/13 1908 01/24/13 1818 01/24/13 1141 NGLU 139* 157* 177* 167* 168* Imaging: Xr Chest 1 View 01/24/2013 Reason For Exam: fall Indication: Fall. Comparison: 08/06/2012 Find ings: AP view chest. The cardiomediastinal silhouette is within normal limits. Perihilar bronchovascular congestion present. Calcified granulomas are present. No effusion or pneumothorax. Osseous structures are intact. Impression: 1. Sta ble exam, without acute process visualized X-ray Hip Left Ap And Lateral 01/24/2013 Reason For Exam: Trauma Left hip including AP pelvis AP and frog-lat eral views examination 24 January 2013. Indication: Trauma, nos Findings: The derik ny pelvic ring and sacral arcuate lines appear intact. The acetabulofemoral join t is intact bilaterally. There is narrowing of the L4-L5 interspace and spurring . There is lucency through the trochanters of the proximal left femur. There is slight increase in varus angulation. . Additionally, there is suggested cortical disruption of the inferior pubic ramus at the left, fracture plane not complete ly visualized, but with slight asymmetric appearance of the pubic ring left vers us right. Circular lucency at the base of the penis in both AP images may repres ent a Murcia catheter balloon, but would indicate a lower inferior bladder margin than expected or balloon elevation in the urethra Impression: Intertrochanteri c fracture of the proximal left femur. Probable fracture left inferior pubic jessica us. Question location Murcia catheter balloon versus artifact on the AP films. R [place] 0832 hours. .. .. X-ray Hip Intraoperative Left 01/24/2013 Reason For Exam: FX;TFN Clinical History: Transfemoral nail placemen t. Fluoroscopy time: 91 seconds. Technique: Left hip 2 views. Findings: AP an d lateral intraoperative radiographs are provided for interpretation. There is t ransfemoral nail fixation of the intertrochanteric fracture. The femoral head is well positioned in the acetabulum. Impression: Internal fixation of the inter trochanteric fracture. X-ray Left Knee 2 Views 01/24/2013 Reason For Exam: Trauma AP and lateral left knee examination 2012. Indication: Trauma, nos Findings: Articulation is preserved. There is not lucency or irregularity to suggest fracture. There is not bony erosion or de struction. There is no abnormal soft tissue density to suggest effusion. Impres yoselin: No acute bony pathology. No significant degenerative change. .. .. Ct Head Without Contrast 01/24/2013 Reason For Exam: fall CT scan of the head without contrast: Finding s: The most recent prior study was done on 01 August 2012, showing evidence of previous left occipital lobe infarct with encephalomalacia. Today's exam is done with 1-mm thick images at 0.7-mm interval through the calvarium. No intravenous contrast was given. Bony structures have normal development and ossification with no acute finding. The mastoid air cells and orbital contents are unremarkab le. Several ethmoid sinuses have minor mucosal thickening of 1-3 mm. There is no foreign body. Intracranially, no hemorrhage, mass, midline shift nor focal flu id collection is present. The brain has advanced atrophy, greater than normal fo r the patient's age. Note is again made of encephalomalacia within the left post erior cerebral artery distribution. Impression: 1. Advanced brain atrophy is ab normal for the patient's age. 2. There is no acute finding. 3. The patient has e ncephalomalacia within the left posterior cerebral artery distribution. 4. Appea ledy is unchanged from the study of [address] Cervical Spine Without Contrast 01/24/2013 Reason For Exam: fall CT scan of the cervical spine without contrast : Findings: The study is done with 1 mm thick images at 0.7 mm interval from t he skull base inferiorly to the mid body of the T2 vertebra. No intravenous or i ntrathecal contrast is given. Reformatted coronal and sagittal images were obtai alley. The lung apices are clear. The airway, esophagus, thyroid lobes, and saliv pato glands are unremarkable. There is no foreign body other than the patient's d ental work. Neck musculature and vasculature are symmetric and normal. No cervic al adenopathy, abnormal cervical soft tissue mass, fluid collection, or air col lection is identified. The mastoid air cells are symmetric and normal in appeara nce along with the middle and inner ear structures. The vertebrae are normal in height and alignment. Mild diffuse degeneration of the cervical spine is presen t with disc space narrowing at multiple levels, marginal osteophytes, and subcho ndral sclerosis of articular surfaces. No compression deformity, subluxation, fr acture, or bone destruction is seen and there is no pathologic blastic developm ent. Osteophytes produce mild encroachment upon multiple neural foramina bilater ally and on the spinal canal as well. These changes are greatest at the C6-C7 le cristina. Impression: 1. The cervical spine has mild diffuse degeneration. 2. No acu te bony abnormality is seen. 3. The soft tissues are unremarkable. ASSESSMENT: Active Problems: HTN (hypertension) History of CVA (cerebrovascular accident) Vascular dementia Bipolar affective disorder DM (diabetes mellitus), type 2, uncontrolled Cognitive disorder Cocaine abuse Fracture, intertrochanteric, left femur Cortical blindness PLAN: Rehab soon Bryon Flaherty DO Electronic Signature 01/25/2013 9:10 AM * Galindo Catalan MD - 01/24/2013 8:09 PM CDT [address] [phone] Post Anesthesia Evaluation/Progress Note 01/24/2013 Patient Name: Paul Peters : 1950 Referring Physician: Ramsey Valladares MD Admission Date: 01/24/2013 311/311-A Vital signs in patient's normal range Yes Respiratory function stable; airway patent Yes Cardiovascular function and hydration status stable Yes Mental status recovered: Patient participates in evaluation Yes Pain control satisfactory Yes Nausea and vomiting control satisfactory Yes Comments: Galindo Catalan MD Electronic Signature 01/24/2013 8:09 PM * Cece Saraiva RN - 01/24/2013 11:17 AM CDT Meets inpatient [facility] Guidelines Ortho- isc- fx hip with planned ORIF documented in this encounter Plan of Treatment Not on filedocumented as of this encounter Procedures Comments Procedure Name Priority Date/Time Associated Diagnosis BEDSIDE GLUCOSE - NURSE Routine 01/27/2013 1:06 PM CDT BEDSIDE GLUCOSE - NURSE Routine 01/27/2013 9:21 AM CDT BEDSIDE GLUCOSE - NURSE Routine 01/26/2013 9:16 PM CDT BEDSIDE GLUCOSE - NURSE Routine 01/26/2013 5:14 PM CDT BEDSIDE GLUCOSE - NURSE Routine 01/26/2013 12:35 PM CDT URINALYSIS, REFLEX Routine 01/26/2013 CULTURE IF NEEDED 11:50 AM CDT URINE CULTURE Routine 01/26/2013 11:50 AM CDT CBC AND DIFFERENTIAL Routine 01/26/2013 11:22 AM CDT BASIC METABOLIC PANEL Routine 01/26/2013 11:22 AM CDT BEDSIDE GLUCOSE - NURSE Routine 01/26/2013 8:32 AM CDT BEDSIDE GLUCOSE - NURSE Routine 01/25/2013 9:04 PM CDT BEDSIDE GLUCOSE - NURSE Routine 01/25/2013 5:21 PM CDT BEDSIDE GLUCOSE - NURSE Routine 01/25/2013 12:12 PM CDT BEDSIDE GLUCOSE - NURSE Routine 01/25/2013 7:48 AM CDT HEMOGLOBIN AND Timed 01/25/2013 HEMATOCRIT, BLOOD 6:25 AM CDT BEDSIDE GLUCOSE - NURSE Routine 01/24/2013 10:03 PM CDT BEDSIDE GLUCOSE - NURSE Routine 01/24/2013 7:08 PM CDT HEMOGLOBIN AND STAT 01/24/2013 HEMATOCRIT, BLOOD 6:24 PM CDT BEDSIDE GLUCOSE - NURSE Routine 01/24/2013 6:18 PM CDT XR HIP INTRAOPERATIVE 01/24/2013 LEFT 5:53 PM CDT BEDSIDE GLUCOSE - NURSE Routine 01/24/2013 11:41 AM CDT ELECTROCARDIOGRAM REPORT Routine 01/24/2013 Fall from other slipping, 9:31 AM CDT tripping, or stumbling URINALYSIS, REFLEX STAT 01/24/2013 CULTURE IF NEEDED 9:30 AM CDT XR CHEST PA OR AP STAT 01/24/2013 9:09 AM CDT XR KNEE LEFT AP AND STAT 01/24/2013 LATERAL 8:12 AM CDT XR HIP LEFT AP AND STAT 01/24/2013 LATERAL 8:[address] CERVICAL SPINE WO STAT 01/24/2013 CONTRAST 8:[address] HEAD WO CONTRAST STAT 01/24/2013 8:05 AM CDT PT & APTT STAT 01/24/2013 7:43 AM CDT ESTIMATED GFR STAT 01/24/2013 7:43 AM CDT CBC AND DIFFERENTIAL STAT 01/24/2013 7:43 AM CDT TYPE AND SCREEN STAT 01/24/2013 7:43 AM CDT COMPREHENSIVE METABOLIC STAT 01/24/2013 PANEL 7:43 AM CDT EKG 12-LEAD Routine 01/24/2013 documented in this encounter Results * Bedside Glucose - NURSE (01/27/2013 1:06 PM CDT) Bedside Glucose 123 (H) 74 - 106 mg/dL [facility] - Nurse Specimen Performing Organization Address [facility] Phone Number [facility] [address] [place] [phone] [facility] * Bedside Glucose - NURSE (01/27/2013 9:21 AM CDT) Bedside Glucose 107 (H) 74 - 106 mg/dL [facility] - Nurse Specimen Performing Organization Address [facility] Phone Number [facility] [address] [place] [address] [facility] * Bedside Glucose - NURSE (01/26/2013 9:16 PM CDT) Bedside Glucose 138 (H)Comment: Notified Nurse 74 - 106 mg/dL [facility] - Nurse Specimen Performing Organization Address [facility] Phone Number [employer] [facility] [address] [place] [address] [facility] * Bedside Glucose - NURSE (01/26/2013 5:14 PM CDT) Bedside Glucose 158 (H) 74 - 106 mg/dL [facility] - Nurse Specimen Performing Organization Address [facility] Phone Number [facility] [address] [place] [phone] [facility] * Bedside Glucose - NURSE (01/26/2013 12:35 PM CDT) Bedside Glucose 138 (H) 74 - 106 mg/dL [facility] - Nurse Specimen Performing Organization Address [facility] Number [facility] [address] [place], [place] [phone] [facility] * Urine Culture (01/26/2013 11:50 AM CDT) Urine Culture Terry count: No growth. [facility] Specimen Urine specimen (specimen) Performing Organization Address [facility] [address] [place] [id number] [facility] * Urinalysis, Reflex Culture If Needed (01/26/2013 11:50 AM CDT) Color, UA Yellow [facility] Appearance CLEAR [facility] Specific 1.027 1.003 - 1.030 [facility] [place], UA pH, UA 5.5 5.0 - 8.0 [facility] Protein, UA 1+ (A) NEG [facility] Glucose, UA NEG NEG [facility] Ketones, UA 2+ (A) NEG [facility] Urobilinogen, 0.2 0.0 - 1.0 EU [facility] UA Bilirubin, UA NEG NEG [facility] Hemoglobin, UA NEG NEG [facility] Leukoesterase, NEG NEG [facility] UA Nitrites, UA NEG NEG [facility] Mucous OCCAS [facility] WBC, UA 4-10 (A) 0 - 3 /HPF [facility] Culture Set SET [facility] RBC, UA 0-3 0 - 3 /HPF [facility] Hyaline Casts, 1 /LPF [facility] UA Specimen Urine specimen (specimen) Performing Organization Address [facility] Phone Number [facility] [address] [place] [phone] [facility] * Basic metabolic panel (01/26/2013 11:22 AM CDT) Sodium 141 136 - 145 mmol/L [facility] Potassium 3.7 3.6 - 4.9 mmol/L [facility] Chloride 104 99 - 111 mmol/L [facility] CO2 29 20 - 36 mmol/L [facility] Glucose 140 (H) 74 - 106 mg/dL [facility] BUN, Bld 21 (H) 6 - 20 mg/dL [facility] Creatinine 1.0 0.6 - 1.2 mg/dL [facility] Calcium 8.2 (L) 8.7 - 10.5 mg/dL [facility] Specimen Blood specimen (specimen) Performing Organization Address [facility] Phone Number [facility] [address] [place] [address] [facility] * CBC and differential (01/26/2013 11:22 AM CDT) WBC 8.7 4.8 - 10.8 10 3/cumm [facility] RBC 3.74 (L) 4.50 - 5.90 10 [facility] 6/cumm Hemoglobin 11.2 (L) 13.5 - 17.5 g/dL [facility] Hematocrit 33.5 (L) 40.0 - 52.0 % [facility] MCV 89.5 80.0 - 100.0 fL [facility] MCH 30.0 26.0 - 34.0 pg [facility] MCHC 33.5 31.0 - 37.0 g/dL [facility] RDW 14.1 10.0 - 14.8 % [facility] Platelets 125 (L) 147 - 412 10 3/cumm [facility] MPV 7.9 6.8 - 10.0 fL [facility] Neutrophils % 53.0 40.0 - 75.0 % [facility] Lymphocytes % 32.7 22.0 - 49.0 % [facility] Monocytes % 10.8 (H) 2.0 - 9.0 % [facility] Eosinophils % 3.2 0.0 - 5.0 % [facility] Basophils % 0.3 0.0 - 2.5 % [facility] Specimen Blood specimen (specimen) Performing Organization Address [facility] Phone Number [facility] [address] [place] [address] [facility] * Bedside Glucose - NURSE (01/26/2013 8:32 AM CDT) Bedside Glucose 121 (H) 74 - 106 mg/dL [facility] - Nurse Specimen Performing Organization Address [facility] Phone Number [facility] [address] [place] [address] [facility] * Bedside Glucose - NURSE (01/25/2013 9:04 PM CDT) Bedside Glucose 167 (H)Comment: Notified Nurse 74 - 106 mg/dL [facility] - Nurse Specimen Performing Organization Address City/[facility] Phone Number [facility] [address] [place] [address] [facility] * Bedside Glucose - NURSE (01/25/2013 5:21 PM CDT) Bedside Glucose 173 (H)Comment: Notified Nurse 74 - 106 mg/dL [facility] - Nurse Specimen Performing Organization Address [facility] Phone Number [facility] [address] [place] [phone] [facility] * Bedside Glucose - NURSE (01/25/2013 12:12 PM CDT) Bedside Glucose 189 (H)Comment: Notified Nurse 74 - 106 mg/dL [facility] - Nurse Specimen Performing Organization Address [facility] Phone Number [facility] [address] [place] [phone] [facility] * Bedside Glucose - NURSE (01/25/2013 7:48 AM CDT) Bedside Glucose 139 (H)Comment: Notified Nurse 74 - 106 mg/dL [facility] - Nurse Specimen Performing Organization Address [facility] Phone Number [facility] [address] [place] [phone] [facility] * Hemoglobin and hematocrit, blood (01/25/2013 6:25 AM CDT) Hemoglobin 11.9 (L) 13.5 - 17.5 g/dL [facility] Hematocrit 35.5 (L) 40.0 - 52.0 % [facility] Specimen Blood specimen (specimen) Performing Organization Address [facility] Phone Number [facility] [address] [place] [address] [facility] * Bedside Glucose - NURSE (01/24/2013 10:03 PM CDT) Bedside Glucose 157 (H) 74 - 106 mg/dL [facility] - Nurse Specimen Performing Organization Address [facility] Phone Number [facility] [address] [place] [phone] [facility] * Bedside Glucose - NURSE (01/24/2013 7:08 PM CDT) Bedside Glucose 177 (H) 74 - 106 mg/dL [facility] - Nurse Comment: Notified Nurse Notified Dr. Menezes Performing Organization Address [facility] Phone Number [facility] [address] [place] [phone] [facility] * Hemoglobin and hematocrit, blood (01/24/2013 6:24 PM CDT) Hemoglobin 14.0 13.5 - 17.5 g/dL Hematocrit 41.6 40.0 - 52.0 % Specimen Blood specimen (specimen) * Bedside Glucose - NURSE (01/24/2013 6:18 PM CDT) Bedside Glucose 167 (H) 74 - 106 mg/dL [facility] - Nurse Specimen Performing Organization Address [facility] Phone Number [facility] [address] [place] [phone] [facility] * X-ray hip intraoperative left (01/24/2013 5:53 PM CDT) Specimen Narrative Performed At Reason For Exam: FX;TFN [facility] Clinical History: Transfemoral nail placement. Fluoroscopy time: 91 seconds. Technique: Left hip 2 views. Findings: AP and lateral intraoperative radiographs are provided for interpretation. There is transfemoral nail fixation of the intertrochanteric fracture. The femoral head is well positioned in the acetabulum. Impression: Internal fixation of the intertrochanteric fracture. Procedure Note Ed, Rad Results In - 01/24/2013 5:56 PM CDT Reason For Exam: FX;TFN Clinical History: Transfemoral nail placement. Fluoroscopy time: 91 seconds. Technique: Left hip 2 views. Findings: AP and lateral intraoperative radiographs are provided for interpretation. There is transfemoral nail fixation of the intertrochanteric fracture. The femoral head is well positioned in the acetabulum. Impression: Internal fixation of the intertrochanteric fracture. Performing Organization Address City/State/Zipcode Phone Number [facility] * Bedside Glucose - NURSE (01/24/2013 11:41 AM CDT) Bedside Glucose 168 (H)Comment: Notified Nurse 74 - 106 mg/dL [facility] - Nurse Specimen Performing Organization Address City/State/Zipcode Phone Number [facility] [address] [place] [phone] [facility] * ELECTROCARDIOGRAM REPORT (01/24/2013 9:31 AM CDT) Narrative Performed At Manjit Artis MD 01/24/20139:31 AM History Chief Complaint Patient presents with Fall HPI Comments: The patient is a poor historian, which is limiting the history obtained. Patient reports that he fell this morning at the assisted. He states he fell while walking due to tripping.He is not sure if he hit his head.He is unsure feels consciousness.There is no reported witnessed seizure.The patient has a GCS of 14 reportedly at his baseline.He denies increased confusion from his baseline or focal neurological deficit.No reported episodes of emesis. The patient is complaining of left lower extremity pain points to his knee. He reports he has not ambulated since his fall. He does not take any oral anticoagulant medication. His past medical history of a prior CVA, diabetes, bipolar disorder, COPD, HTN. The history is provided by the patient. Past Medical History Diagnosis Date CVA (cerebral infarction) COPD (chronic obstructive pulmonary disease) Diabetes mellitus Hypertension Bipolar disorder Substance abuse/dependence crack cocaine, THC Alcohol dependence, episodic History of medication noncompliance Tobacco abuse disorder Stroke 08/05/12 history of CVA's Past Surgical History Procedure Date Eye surgery No family history on file. History Substance Use Topics Smoking status: Current Everyday Smoker -- 0.2 packs/day Types: Cigarettes Smokeless tobacco: Never Used Alcohol Use: No Review of Systems Constitutional: Negative for fever. HENT: Negative for neck pain and neck stiffness. Eyes: Negative for visual disturbance. Cardiovascular: Negative for chest pain. Gastrointestinal: Negative for nausea, vomiting and abdominal pain. Genitourinary: Negative for flank pain. Musculoskeletal: Positive for arthralgias (Left knee). Negative for back pain. Skin: Negative for wound. Neurological: Positive for headaches. Negative for seizures, syncope, speech difficulty and weakness. Psychiatric/Behavioral: Positive for confusion (Reportedly at baseline). Physical Exam BP 119/83 | Pulse 81 | Temp 97.7 F (36.5 C) | Resp 15 | Ht 6' 2" (1.88 m) | Wt 81.647 kg (180 lb) | BMI 23.11 kg/m2 | SpO2 97% Physical Exam Nursing note and vitals reviewed. Constitutional: He appears well-developed and well-nourished. No distress. HENT: Head: Normocephalic and atraumatic. Mouth/Throat: Oropharynx is clear and moist. Eyes: Conjunctivae normal and EOM are normal. Pupils are equal, round, and reactive to light. Neck: Normal range of motion. Neck supple. No posterior midline neck TTP, step-off, or deformity Cardiovascular: Normal rate, regular rhythm and normal heart sounds. Pulmonary/Chest: Effort normal and breath sounds normal. No respiratory distress. Abdominal: Soft. There is no tenderness. Musculoskeletal: Left lower extremity is shortened and externally rotated. Left hip- TTP laterally. Left knee- no deformity, non-tender, no swelling. Neurological: He is alert. He has normal strength. No cranial nerve deficit or sensory deficit. GCS eye subscore is 4. GCS verbal subscore is 4. GCS motor subscore is 6. A/Ox2- not oriented to time (RN discussed patient with ID staff and he is reportedly at his baseline). Skin: Skin is warm and dry. He is not diaphoretic. Psychiatric: He has a normal mood and affect. ED Course ELECTROCARDIOGRAM REPORT Performed by: MANJIT ARTIS Authorized by: MANJIT ARTIS interpreted by ED physician Comparison: not compared with previous ECG Comparison to previous ECG: NSR MDM Number of Diagnoses or Management Options Fall from other slipping, tripping, or stumbling: new and requires workup Femur fracture: new and requires workup Inferior pubic ramus fracture: new and requires workup Diagnosis management comments: Triage/nursing notes/vitals reviewed by Hemodynamically stable. Suspect left hip fx- patient is shortened and externally rotated. I am ordering CT head and CT c-spine since the patient is a poor historian and he is unsure if he hit his head or had LOC. He is reportedly at his baseline from a mental status standpoint. Verbal CT head and c-spine report from Dr. Sheffield- no acute intracranial changes or acute fracture.He does have evidence of old CVA. X-ray Hip Left Ap And Lateral 01/24/2013Reason For Exam: TraumaLeft hip including AP pelvis AP and frog-lateral views examination 24 January 2013.Indication: Trauma, nosFindings: The bony pelvic ring and sacral arcuate lines appear intact. The acetabulofemoral joint is intact bilaterally. There is narrowing of the L4-L5 interspace and spurring. There is lucency through the trochanters of the proximal left femur. There is slight increase in varus angulation. . Additionally, there is suggested cortical disruption of the inferior pubic ramus at the left, fracture plane not completely visualized, but with slight asymmetric appearance of the pubic ring left versus right. Circular lucency at the base of the penis in both AP images may represent a Murcia catheter balloon, but would indicate a lower inferior bladder margin than expected or balloon elevation in the urethra Impression: Intertrochanteric fracture of the proximal left femur. Probable fracture left inferior pubic ramus. Question location Murcia catheter balloon versus artifact on the AP films. Report is provided the ED at 0832 hours... .. X-ray Left Knee 2 Views 01/24/2013Reason For Exam: TraumaAP and lateral left knee examination 24 January 2013.Indication: Trauma, nosFindings: Articulation is preserved. There is not lucency or irregularity to suggest fracture. There is not bony erosion or destruction. There is no abnormal soft tissue density to suggest effusion. Impression: No acute bony pathology. No significant degenerative change. 9:02 AM Discussed with Lashonda Avitia. She is putting in admit orders at this time. 9:30 AM CXR: no acute Amount and/or Complexity of Data Reviewed Clinical lab tests: ordered and reviewed Tests in the radiology section of CPT: ordered and reviewed Independent visualization of images, tracings, or specimens: yes Risk of Complications, Morbidity, and/or Mortality Presenting problems: moderate Diagnostic procedures: moderate Management options: moderate Patient Progress Patient progress: stable Procedure Note Manjit Artis MD - 01/24/2013 7:32 AM CDT History Chief Complaint Patient presents with Fall HPI Comments: The patient is a poor historian, which is limiting the history obtained. Patient reports that he fell this morning at the assisted. He states he fell while walking due to tripping. He is not sure if he hit his head. He is unsure feels consciousness. There is no reported witnessed seizure. The patient has a GCS of 14 reportedly at his baseline. He denies increased confusion from his baseline or focal neurological deficit. No reported episodes of emesis. The patient is complaining of left lower extremity pain points to his knee. He reports he has not ambulated since his fall. He does not take any oral anticoagulant medication. His past medical history of a prior CVA, diabetes, bipolar disorder, COPD, HTN. The history is provided by the patient. Past Medical History Diagnosis Date CVA (cerebral infarction) COPD (chronic obstructive pulmonary disease) Diabetes mellitus Hypertension Bipolar disorder Substance abuse/dependence crack cocaine, THC Alcohol dependence, episodic History of medication noncompliance Tobacco abuse disorder Stroke 08/05/12 history of CVA's Past Surgical History Procedure Date Eye surgery No family history on file. History Substance Use Topics Smoking status: Current Everyday Smoker -- 0.2 packs/day Types: Cigarettes Smokeless tobacco: Never Used Alcohol Use: No Review of Systems Constitutional: Negative for fever. HENT: Negative for neck pain and neck stiffness. Eyes: Negative for visual disturbance. Cardiovascular: Negative for chest pain. Gastrointestinal: Negative for nausea, vomiting and abdominal pain. Genitourinary: Negative for flank pain. Musculoskeletal: Positive for arthralgias (Left knee). Negative for back pain. Skin: Negative for wound. Neurological: Positive for headaches. Negative for seizures, syncope, speech difficulty and weakness. Psychiatric/Behavioral: Positive for confusion (Reportedly at baseline). Physical Exam BP 119/83 | Pulse 81 | Temp 97.7 F (36.5 C) | Resp 15 | Ht 6' 2" (1.88 m) | Wt 81.647 kg (180 lb) | BMI 23.11 kg/m2 | SpO2 97% Physical Exam Nursing note and vitals reviewed. Constitutional: He appears well-developed and well-nourished. No distress. HENT: Head: Normocephalic and atraumatic. Mouth/Throat: Oropharynx is clear and moist. Eyes: Conjunctivae normal and EOM are normal. Pupils are equal, round, and reactive to light. Neck: Normal range of motion. Neck supple. No posterior midline neck TTP, step-off, or deformity Cardiovascular: Normal rate, regular rhythm and normal heart sounds. Pulmonary/Chest: Effort normal and breath sounds normal. No respiratory distress. Abdominal: Soft. There is no tenderness. Musculoskeletal: Left lower extremity is shortened and externally rotated. Left hip- TTP laterally. Left knee- no deformity, non-tender, no swelling. Neurological: He is alert. He has normal strength. No cranial nerve deficit or sensory deficit. GCS eye subscore is 4. GCS verbal subscore is 4. GCS motor subscore is 6. A/Ox2- not oriented to time (RN discussed patient with NH staff and he is reportedly at his baseline). Skin: Skin is warm and dry. He is not diaphoretic. Psychiatric: He has a normal mood and affect. ED Course ELECTROCARDIOGRAM REPORT Performed by: MANJIT ARTIS Authorized by: MANJIT ARTIS interpreted by ED physician Comparison: not compared with previous ECG Comparison to previous ECG: NSR MDM Number of Diagnoses or Management Options Fall from other slipping, tripping, or stumbling: new and requires workup Femur fracture: new and requires workup Inferior pubic ramus fracture: new and requires workup Diagnosis management comments: Triage/nursing notes/vitals reviewed by MD Hemodynamically stable. Suspect left hip fx- patient is shortened and externally rotated. I am ordering CT head and CT c-spine since the patient is a poor historian and he is unsure if he hit his head or had LOC. He is reportedly at his baseline from a mental status standpoint. Verbal CT head and c-spine report from Dr. Sheffield- no acute intracranial changes or acute fracture. He does have evidence of old CVA. X-ray Hip Left Ap And Lateral 01/24/2013 Reason For Exam: Trauma Left hip including AP pelvis AP and frog-lateral views examination 24 January 2013. Indication: Trauma, nos Findings: The bony pelvic ring and sacral arcuate lines appear intact. The acetabulofemoral joint is intact bilaterally. There is narrowing of the L4-L5 interspace and spurring. There is lucency through the trochanters of the proximal left femur. There is slight increase in varus angulation. . Additionally, there is suggested cortical disruption of the inferior pubic ramus at the left, fracture plane not completely visualized, but with slight asymmetric appearance of the pubic ring left versus right. Circular lucency at the base of the penis in both AP images may represent a Murcia catheter balloon, but would indicate a lower inferior bladder margin than expected or balloon elevation in the urethra Impression: Intertrochanteric fracture of the proximal left femur. Probable fracture left inferior pubic ramus. Question location Murcia catheter balloon versus artifact on the AP films. Report is provided the ED at 0832 hours. .. .. X-ray Left Knee 2 Views 01/24/2013 Reason For Exam: Trauma AP and lateral left knee examination 24 January 2013. Indication: Trauma, nos Findings: Articulation is preserved. There is not lucency or irregularity to suggest fracture. There is not bony erosion or destruction. There is no abnormal soft tissue density to suggest effusion. Impression: No acute bony pathology. No significant degenerative change. 9:02 AM Discussed with Lashonda Avitia. She is putting in admit orders at this time. 9:30 AM CXR: no acute Amount and/or Complexity of Data Reviewed Clinical lab tests: ordered and reviewed Tests in the radiology section of CPT: ordered and reviewed Independent visualization of images, tracings, or specimens: yes Risk of Complications, Morbidity, and/or Mortality Presenting problems: moderate Diagnostic procedures: moderate Management options: moderate Patient Progress Patient progress: stable Manjit Artis MD 01/24/13 0931 * Urinalysis, reflex culture if indicated (01/24/2013 9:30 AM CDT) Color, UA Yellow [facility] Appearance CLEAR [facility] Specific 1.022 1.003 - 1.030 [facility] [place], UA pH, UA 6.0 5.0 - 8.0 [facility] Protein, UA TRACE (A) NEG [facility] Glucose, UA NEG NEG [facility] Ketones, UA 1+ (A) NEG [facility] Urobilinogen, 3.0 (H) 0.0 - 1.0 EU [facility] UA Bilirubin, UA NEG NEG [facility] Hemoglobin, UA NEG NEG [facility] Leukoesterase, NEG NEG [facility] UA Nitrites, UA NEG NEG [facility] Squam Epithel, 1+ 0-1+ [facility] UA Mucous 2+ [facility] WBC, UA 0-3 0 - 3 /HPF [facility] Culture Set NOT PERFORMED [facility] Hyaline Casts, 1-5 /LPF [facility] UA Specimen Urine, Clean Catch Performing Organization Address City/[facility] Phone Number [facility] [address] [place] [address] [facility] * XR Chest 1 view (01/24/2013 9:09 AM CDT) Specimen Narrative Performed At Reason For Exam: fall [facility] Indication: Fall. Comparison: 08/06/2012 Findings: AP view chest. The cardiomediastinal silhouette is within normal limits. Perihilar bronchovascular congestion present. Calcified granulomas are present. No effusion or pneumothorax. Osseous structures are intact. Impression: 1. Stable exam, without acute process visualized Procedure Note De, Rad Results In - 01/24/2013 9:25 AM CDT Reason For Exam: fall Indication: Fall. Comparison: 08/06/2012 Findings: AP view chest. The cardiomediastinal silhouette is within normal limits. Perihilar bronchovascular congestion present. Calcified granulomas are present. No effusion or pneumothorax. Osseous structures are intact. Impression: 1. Stable exam, without acute process visualized Performing Organization Address [facility] Phone Number [facility] * X-ray Left Knee 2 views (01/24/2013 8:12 AM CDT) Specimen Narrative Performed At Reason For Exam: Trauma [facility] AP and lateral left knee examination 24 January 2013. Indication: Trauma, nos Findings: Articulation is preserved. There is not lucency or irregularity to suggest fracture. There is not bony erosion or destruction. There is no abnormal soft tissue density to suggest effusion. Impression: No acute bony pathology. No significant degenerative change. .. .. Procedure Note Ed, Rad Results In - 01/24/2013 8:29 AM CDT Reason For Exam: Trauma AP and lateral left knee examination 24 January 2013. Indication: Trauma, nos Findings: Articulation is preserved. There is not lucency or irregularity to suggest fracture. There is not bony erosion or destruction. There is no abnormal soft tissue density to suggest effusion. Impression: No acute bony pathology. No significant degenerative change. .. .. Performing Organization Address [facility] Phone Number [facility] * X-ray hip left AP and lateral (01/24/2013 8:11 AM CDT) Specimen Narrative Performed At Reason For Exam: Trauma [facility] Left hip including AP pelvis AP and frog-lateral views examination 24 January 2013. Indication: Trauma, nos Findings: The bony pelvic ring and sacral arcuate lines appear intact. The acetabulofemoral joint is intact bilaterally. There is narrowing of the L4-L5 interspace and spurring. There is lucency through the trochanters of the proximal left femur. There is slight increase in varus angulation. . Additionally, there is suggested cortical disruption of the inferior pubic ramus at the left, fracture plane not completely visualized, but with slight asymmetric appearance of the pubic ring left versus right. Circular lucency at the base of the penis in both AP images may represent a Murcia catheter balloon, but would indicate a lower inferior bladder margin than expected or balloon elevation in the urethra Impression: Intertrochanteric fracture of the proximal left femur. Probable fracture left inferior pubic ramus. Question location Murcia catheter balloon versus artifact on the AP films. Report is provided the ED at 0832 hours. .. .. Procedure Note Ed, Rad Results In - 01/24/2013 8:35 AM CDT Reason For Exam: Trauma Left hip including AP pelvis AP and frog-lateral views examination 24 January 2013. Indication: Trauma, nos Findings: The bony pelvic ring and sacral arcuate lines appear intact. The acetabulofemoral joint is intact bilaterally. There is narrowing of the L4-L5 interspace and spurring. There is lucency through the trochanters of the proximal left femur. There is slight increase in varus angulation. . Additionally, there is suggested cortical disruption of the inferior pubic ramus at the left, fracture plane not completely visualized, but with slight asymmetric appearance of the pubic ring left versus right. Circular lucency at the base of the penis in both AP images may represent a Murcia catheter balloon, but would indicate a lower inferior bladder margin than expected or balloon elevation in the urethra Impression: Intertrochanteric fracture of the proximal left femur. Probable fracture left inferior pubic ramus. Question location Murcia catheter balloon versus artifact on the AP films. Report is provided the ED at 0832 hours. .. .. Performing Organization Address City/State/Zipcode Phone Number [facility] * CT Cervical Spine without Contrast (01/24/2013 8:05 AM CDT) Specimen Narrative Performed At Reason For Exam: fall [facility] CT scan of the cervical spine without contrast: Findings: The study is done with 1 mm thick images at 0.7 mm interval from the skull base inferiorly to the mid body of the T2 vertebra. No intravenous or intrathecal contrast is given. Reformatted coronal and sagittal images were obtained. The lung apices are clear. The airway, esophagus, thyroid lobes, and salivary glands are unremarkable. There is no foreign body other than the patient's dental work. Neck musculature and vasculature are symmetric and normal. No cervical adenopathy, abnormal cervical soft tissue mass, fluid collection, or air collection is identified. The mastoid air cells are symmetric and normal in appearance along with the middle and inner ear structures. The vertebrae are normal in height and alignment. Mild diffuse degeneration of the cervical spine is present with disc space narrowing at multiple levels, marginal osteophytes, and subchondral sclerosis of articular surfaces. No compression deformity, subluxation, fracture, or bone destruction is seen and there is no pathologic blastic development. Osteophytes produce mild encroachment upon multiple neural foramina bilaterally and on the spinal canal as well. These changes are greatest at the C6-C7 level. Impression: 1. The cervical spine has mild diffuse degeneration. 2. No acute bony abnormality is seen. 3. The soft tissues are unremarkable. Procedure Note Ed, Rad Results In - 01/24/2013 2:39 PM CDT Reason For Exam: fall CT scan of the cervical spine without contrast: Findings: The study is done with 1 mm thick images at 0.7 mm interval from the skull base inferiorly to the mid body of the T2 vertebra. No intravenous or intrathecal contrast is given. Reformatted coronal and sagittal images were obtained. The lung apices are clear. The airway, esophagus, thyroid lobes, and salivary glands are unremarkable. There is no foreign body other than the patient's dental work. Neck musculature and vasculature are symmetric and normal. No cervical adenopathy, abnormal cervical soft tissue mass, fluid collection, or air collection is identified. The mastoid air cells are symmetric and normal in appearance along with the middle and inner ear structures. The vertebrae are normal in height and alignment. Mild diffuse degeneration of the cervical spine is present with disc space narrowing at multiple levels, marginal osteophytes, and subchondral sclerosis of articular surfaces. No compression deformity, subluxation, fracture, or bone destruction is seen and there is no pathologic blastic development. Osteophytes produce mild encroachment upon multiple neural foramina bilaterally and on the spinal canal as well. These changes are greatest at the C6-C7 level. Impression: 1. The cervical spine has mild diffuse degeneration. 2. No acute bony abnormality is seen. 3. The soft tissues are unremarkable. Performing Organization Address City/State/Zipcode Phone Number [facility] * CT Head without Contrast (01/24/2013 8:05 AM CDT) Specimen Narrative Performed At Reason For Exam: fall [facility] CT scan of the head without contrast: Findings: The most recent prior study was done on 01 August 2012, showing evidence of previous left occipital lobe infarct with encephalomalacia. Today's exam is done with 1-mm thick images at 0.7-mm interval through the calvarium. No intravenous contrast was given. Bony structures have normal development and ossification with no acute finding. The mastoid air cells and orbital contents are unremarkable. Several ethmoid sinuses have minor mucosal thickening of 1-3 mm. There is no foreign body. Intracranially, no hemorrhage, mass, midline shift nor focal fluid collection is present. The brain has advanced atrophy, greater than normal for the patient's age. Note is again made of encephalomalacia within the left posterior cerebral artery distribution. Impression: 1. Advanced brain atrophy is abnormal for the patient's age. 2. There is no acute finding. 3. The patient has encephalomalacia within the left posterior cerebral artery distribution. 4. Appearance is unchanged from the study of 01 August 2012. Procedure Note Ed, Rad Results In - 01/24/2013 2:39 PM CDT Reason For Exam: fall CT scan of the head without contrast: Findings: The most recent prior study was done on 01 August 2012, showing evidence of previous left occipital lobe infarct with encephalomalacia. Today's exam is done with 1-mm thick images at 0.7-mm interval through the calvarium. No intravenous contrast was given. Bony structures have normal development and ossification with no acute finding. The mastoid air cells and orbital contents are unremarkable. Several ethmoid sinuses have minor mucosal thickening of 1-3 mm. There is no foreign body. Intracranially, no hemorrhage, mass, midline shift nor focal fluid collection is present. The brain has advanced atrophy, greater than normal for the patient's age. Note is again made of encephalomalacia within the left posterior cerebral artery distribution. Impression: 1. Advanced brain atrophy is abnormal for the patient's age. 2. There is no acute finding. 3. The patient has encephalomalacia within the left posterior cerebral artery distribution. 4. Appearance is unchanged from the study of 01 August 2012. Performing Organization Address [facility] Phone Number [facility] * Type and screen (01/24/2013 7:43 AM CDT) Pathologist [facility] ABORh A POS [facility] Antibody Screen NEG [facility] Specimen Blood specimen (specimen) Performing Organization Address [facility] Phone Number [facility] [address] [place], [place] [address] [facility] * Estimated GFR (01/24/2013 7:43 AM CDT) [facility] GFR MDRD Af >59 >59 ml/min [facility] [...] body surface area. Specimen Performing Organization Address [facility] Phone Number [facility] [address] [place] [address] [facility] * PT & APTT (01/24/2013 7:43 AM CDT) [facility] Prothrombin 14.2 11.8 - 14.8 secs [facility] Time INR 1.1 [facility] Comment: Application of the INR is recommended only for patients receiving warfarin therapy. Recommended therapeutic range: 2.0-3.0 for less intense therapy 2.5-3.5 for more intense therapy aPTT 36.2 (H) 23.0 - 36.0 secs [facility] Specimen Performing Organization Address [facility] Phone Number [facility] [address] [place], [place] [id number] [facility] * Comprehensive metabolic panel (01/24/2013 7:43 AM CDT) Albumin 4.0 3.4 - 4.8 g/dL [facility] Alkaline 101 29 - 122 U/L [facility] Phosphatase ALT 17 10 - 46 U/L [facility] AST 20 16 - 37 U/L [facility] Total Bilirubin 0.6 0.3 - 1.2 mg/dL [facility] BUN, Bld 19 6 - 20 mg/dL [facility] Calcium 9.1 8.7 - 10.5 mg/dL [facility] Chloride 106 99 - 111 mmol/L [facility] Creatinine 1.1 0.6 - 1.2 mg/dL [facility] Glucose 147 (H) 74 - 106 mg/dL [facility] Potassium 4.0 3.6 - 4.9 mmol/L [facility] Total Protein 7.1 6.4 - 8.3 g/dL [facility] Sodium 142 136 - 145 mmol/L [facility] CO2 30 20 - 36 mmol/L [facility] Specimen Blood specimen (specimen) Performing Organization Address City/State/Zipcode Phone Number [facility] [address] [place] [phone] [facility] * CBC and differential (01/24/2013 7:43 AM CDT) WBC 7.5 4.8 - 10.8 10 3/cumm [facility] RBC 4.83 4.50 - 5.90 10 [facility] 6/cumm Hemoglobin 14.3 13.5 - 17.5 g/dL [facility] Hematocrit 42.7 40.0 - 52.0 % [facility] MCV 88.5 80.0 - 100.0 fL [facility] MCH 29.5 26.0 - 34.0 pg [facility] MCHC 33.4 31.0 - 37.0 g/dL [facility] RDW 13.9 10.0 - 14.8 % [facility] Platelets 153 147 - 412 10 3/cumm [facility] MPV 8.5 6.8 - 10.0 fL [facility] Neutrophils % 47.1 40.0 - 75.0 % [facility] Lymphocytes % 38.5 22.0 - 49.0 % [facility] Monocytes % 9.7 (H) 2.0 - 9.0 % [facility] Eosinophils % 4.3 0.0 - 5.0 % [facility] Basophils % 0.4 0.0 - 2.5 % [facility] Specimen Blood specimen (specimen) Performing Organization Address City/State/Zipcode Phone Number [facility] [address] [place], [place] [phone] [facility] * EKG 12 lead (01/24/2013) Narrative Performed At documented in this encounter Visit Diagnoses Diagnosis Hip fracture, intertrochanteric (HCC) - Primary Closed fracture of intertrochanteric section of femur Femur fracture (HCC) Closed fracture of unspecified part of femur Inferior pubic ramus fracture (HCC) Closed fracture of pubis Fall from other slipping, tripping, or stumbling HTN (hypertension) Unspecified essential hypertension History of CVA (cerebrovascular accident) Transient ischemic attack (TIA), and cerebral infarction without residual deficits Vascular dementia (HCC) Vascular dementia, uncomplicated Bipolar affective disorder (HCC) Bipolar disorder, unspecified DM (diabetes mellitus), type 2, uncontrolled (HCC) Type II or unspecified type diabetes mellitus without mention of complication, uncontrolled Cognitive disorder Unspecified persistent mental disorders due to conditions classified elsewhere Cocaine abuse (HCC) Cocaine abuse, unspecified Fracture, intertrochanteric, left femur (HCC) Closed fracture of intertrochanteric section of femur 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 documented in this encounter Administered Medications Action Date Dose Rate Site Medication Order MAR Action 01/24/2013 7:00 PM CDT 1,000 mLs 20 mL/hr 0.9% NaCl infusion New Bag 1,000 mL, Intravenous, CONTINUOUS, Starting Wed01/24/13 at 1845, Patients with renal failure or known diabetes, Phase 1 (PACU) 1,000 mLs 20 mL/hr Handoff 01/24/2013 6:14 PM CDT 01/26/2013 5:40 AM CDT 50 mL/hr 0.9% NaCl infusion New Bag Intravenous, CONTINUOUS, Starting Wed01/25/13 at 0930 1,000 mLs 50 mL/hr New Bag 01/25/2013 10:35 AM CDT 50 mL/hr Rate/Dose Change 01/25/2013 9:15 AM CDT 01/27/2013 8:53 AM CDT 325 mg aspirin tablet 325 mg Given 325 mg DAILY, Oral, First dose on Wed01/24/13 at 2000, Phase 2 (Post-Op) 325 mg Given 01/26/2013 9:09 AM CDT 325 mg Given 01/25/2013 9:14 AM CDT 01/26/2013 8:44 PM CDT 20 mg atorvastatin (LIPITOR) tablet 20 mg Given 20 mg BEDTIME, Oral, First dose on Wed01/24/13 at 2100 20 mg Given 01/25/2013 8:35 PM CDT 20 mg Given 01/24/2013 8:35 PM CDT 01/24/2013 5:05 PM CDT 1 g ceFAZolin (ANCEF) IV Duplex 1 g New Bag 1 g ONCE, Intravenous, Administer over 30 Minutes, Wed01/24/13 at 1500, For 1 dose, Give within 1-hr prior to incision., Pre-op 01/25/2013 9:20 AM CDT 2 g ceFAZolin (ANCEF) IV DUPLEX 2 g New Bag 2 g EVERY 8 HOURS SCHEDULED (3 times per day), Intravenous, Administer over 30 Minutes, First dose on Wed01/25/13 at 0100, For 2 doses, Phase 2 (Post-Op) 2 g New Bag 01/25/2013 1:19 AM CDT 01/26/2013 8:44 PM CDT 0.5 mg clonazePAM (KLONOPIN) tablet 0.5 mg Given 0.5 mg BEDTIME, Oral, First dose on Wed01/24/13 at 2100 0.5 mg Given 01/25/2013 8:35 PM CDT 01/27/2013 8:53 AM CDT 500 mg divalproex (DEPAKOTE ER) 24 hr tablet Given 500 mg 500 mg DAILY, Oral, First dose on Wed01/24/13 at 1100 500 mg Given 01/26/2013 9:09 AM CDT 500 mg Given 01/25/2013 9:15 AM CDT 01/26/2013 8:44 PM CDT 750 mg divalproex (DEPAKOTE ER) 24 hr tablet Given 750 mg 750 mg BEDTIME, Oral, First dose on Wed01/24/13 at 2100 750 mg Given 01/25/2013 8:35 PM CDT 750 mg Given 01/24/2013 8:35 PM CDT 01/26/2013 8:44 PM CDT 10 mg donepezil (ARICEPT) tablet 10 mg Given 10 mg BEDTIME, Oral, First dose on Wed01/24/13 at 2100 10 mg Given 01/25/2013 8:35 PM CDT 10 mg Given 01/24/2013 8:35 PM CDT fentaNYL (SUBLIMAZE) 0.05 MG/ML injection OVERRIDE Starting Wed01/24/13 at 0848, For 1 dose, Tita Ventura: klaus override, 01/24/2013 12:31 PM CDT 50 mcg fentaNYL (SUBLIMAZE) injection 25-50 mcg Given 25-50 mcg EVERY 15 MIN PRN, Intravenous, Severe Pain, moderate pain, Starting Wed01/24/13 at 1039, Not to exceed 100 mcg/hr If not tolerated by patient, discontinue fentanyl and proceed to hydromorphone. , 50 mcg Given 01/24/2013 11:00 AM CDT 01/24/2013 2:50 PM CDT 50 mcg fentaNYL (SUBLIMAZE) injection 50 mcg Given STAT, 50 mcg ONCE, Intravenous, Wed01/24/13 at 0800, For 1 dose 50 mcg Given 01/24/2013 7:50 AM CDT 01/24/2013 9:00 AM CDT 50 mcg fentaNYL (SUBLIMAZE) injection 50 mcg Given STAT, 50 mcg ONCE, Intravenous, Wed01/24/13 at 0930, For 1 dose 01/24/2013 10:21 AM CDT 50 mcg fentaNYL (SUBLIMAZE) injection 50 mcg Given 50 mcg ONCE, Intravenous, Wed01/24/13 at 1045, For 1 dose 01/26/2013 9:08 AM CDT 1 tablet hydrocodone-acetaminophen (NORCO) 5-325 Given MG 1-2 tablet 1-2 tablet EVERY 4 HOURS PRN, Oral, Moderate Pain, Starting Wed01/24/13 at 1942, If patient is initially given one tablet for pain, may repeat in 2 hours with one tablet based on lack of patient response. If ineffective may proceed to oxycodone for moderate pain relief. Maximum dose of acetaminophen is 3000 mg for adults (2600 mg for < 12 yr olds) from all sources in 24 hours., Phase 2 (Post-Op) 1 tablet Given 01/26/2013 1:30 AM CDT 1 tablet Given 01/25/2013 9:22 PM CDT 01/25/2013 6:23 AM CDT 100 mL/hr lactated ringers infusion New Bag Intravenous, CONTINUOUS, Starting Wed01/24/13 at 2000, Phase 2 (Post-Op) 100 mL/hr New Bag 01/24/2013 8:18 PM CDT 01/26/2013 9:23 PM CDT 25 Units LANTUS (insulin glargine) (LANTUS) Given injection 25 Units 25 Units BEDTIME, Subcutaneous, First dose on Wed01/24/13 at 2100, High-alert Medication, 25 Units Given 01/25/2013 9:10 PM CDT 25 Units Given 01/24/2013 10:36 PM CDT 01/27/2013 8:54 AM CDT 10 mg memantine (NAMENDA) tablet 10 mg Given 10 mg 2 TIMES DAILY, Oral, First dose on Wed01/24/13 at 1100 10 mg Given 01/26/2013 8:44 PM CDT 10 mg Given 01/26/2013 9:09 AM CDT 01/25/2013 2:25 AM CDT 2 mg morphine injection 0.5-2 mg Given 0.5-2 mg EVERY 15 MIN PRN, Intravenous, Moderate Pain, Severe Pain, Starting Wed01/24/13 at 1942, Not to exceed 8 mg/hr. If not tolerated by patient, discontinue morphine and proceed to fentanyl., Phase 2 (Post-Op) 2 mg Given 01/24/2013 10:51 PM CDT NOVOLOG (insulin aspart) (NOVOLOG) 100 UNIT/ML injection OVERRIDE Starting Wed01/24/13 at 1818, For 1 dose, SYDNIE SCHWARZ: cabinet override High-alert Medication, 01/24/2013 6:22 PM CDT 2 Units NOVOLOG (insulin aspart) (NOVOLOG) Given injection 0-12 Units 0-12 Units ONCE PRN, Subcutaneous, High Blood Sugar, Starting Wed01/24/13 at 1827, For 1 dose, Blood Sugar High Dose <70 No Insulin and begin hypoglycemia protocol 71-130 No insulin 131-180 2 units 181-240 4 units 241-300 6 units 301-350 8 units 351-400 10 units > 400 12 units and begin hyperglycemia protocol If BG less than 70 or greater than 400, call anesthesia float High-alert Medication, Phase 1 (PACU) 01/26/2013 9:24 PM CDT 2 Units NOVOLOG (insulin aspart) (NOVOLOG) Given injection 0-28 Units 0-28 Units 4 TIMES DAILY BEFORE MEALS & NIGHTLY, Subcutaneous, First dose on Wed01/24/13 at 1200, Low Dose for initial algorithm BG Very low Low Mod High dose dose Dose Dose <70 Begin hypoglycemia protocol mg/dl, 70-130 0 0 0 0 mg/dl units units units units 131-180 1 2 4 8 mg/dl unit unit units units 181-240 2 4 8 12 mg/dl units units units units 241-300 3 6 10 16 mg/dl units units units units 301-350 4 8 12 20 mg/dl units units units units 351-400 5 10 16 24 mg/dl units units units units >400 6 12 20 28 mg/dl units units units units And hyperglycemia protocol High-alert Medication, 2 Units Given 01/26/2013 5:38 PM CDT 2 Units Given 01/26/2013 12:44 PM CDT 01/27/2013 8:54 AM CDT 5 mg oxyCODONE (ROXICODONE) immediate release Given tablet 5-15 mg 5-15 mg EVERY 4 HOURS PRN, Oral, Moderate Pain, Starting Wed01/24/13 at 1942, May use if hydrocodone ineffective. Give 5 mg for pain scale of 1-4 (mild pain), 10 mg for pain scale of 5-7 (moderate pain), and 15 mg for pain scale of 8-10(severe pain)., Phase 2 (Post-Op) 5 mg Given 01/27/2013 1:34 AM CDT 5 mg Given 01/26/2013 9:26 PM CDT 01/26/2013 8:44 PM CDT 200 mg QUEtiapine (SEROQUEL) tablet 200 mg Given 200 mg BEDTIME, Oral, First dose on Wed01/24/13 at 2100 200 mg Given 01/25/2013 8:35 PM CDT 01/27/2013 8:54 AM CDT 50 mg QUEtiapine (SEROQUEL) tablet 50 mg Given 50 mg 3 TIMES DAILY, Oral, First dose on Wed01/24/13 at 1300 50 mg Given 01/26/2013 5:02 PM CDT 50 mg Given 01/26/2013 1:02 PM CDT documented in this encounter
--- OUTSIDE RECORDS SUMMARY | 2019-05-25 03:20 | XMS REPORT | Encounter Summary ---
Author Author [facility] Organization [facility] Address Unknown Phone Unavailable Care Team Providers Care Community Specialist Name Role Phone Ramsey Valladares MD PCP Encounter Details Care Team Description Date Type Department Historical, Zeny ProviderMD [address] [place] [address] 01/24/2013 [facility] HISTORICAL CONVERSION Encounter Social History [...] Comments Procedure Name Priority Date/Time Associated Diagnosis HM XR CHEST Routine 01/24/2013 documented in this encounter Results * HM XR CHEST (01/24/2013) HM XR Chest Comment: Updated from [facility] History Specimen Performing Organization Address City/State/Zipcode Phone Number [facility] [address] [address] documented in this encounter Visit Diagnoses Not on filedocumented in this encounter
--- OUTSIDE RECORDS SUMMARY | 2019-05-25 03:20 | XMS REPORT | Encounter Summary ---
Author Author [facility] Organization [facility] Address Unknown Phone Unavailable Care Team Providers Care Retirement Specialist Name Role Phone Ramsey Valladares MD PCP Encounter Details Care Team Description Date Type Department Link, Onbase 01/24/2013 [facility] HISTORICAL CONVERSION Social History Date [...] history available. documented as of this encounter Progress Notes * Link, Onbase - 04/22/2013 6:18 AM CDT T * Link, Onbase - 04/22/2013 6:18 AM CDT T documented in this encounter Plan of Treatment Not on filedocumented as of this encounter Procedures Comments Procedure Name Priority Date/Time Associated Diagnosis EXTERNAL XRAY 04/22/2013 7:06 PM CDT IMAGING STUDY 04/22/2013 5:30 PM CDT IMAGING STUDY 04/22/2013 5:30 PM CDT EXTERNAL XRAY 04/22/2013 5:30 PM CDT EXTERNAL XRAY 04/22/2013 5:30 PM CDT HM EXTERNAL XRAY 04/22/2013 5:30 PM CDT documented in this encounter Results * HM EXTERNAL XRAY (04/22/2013 7:06 PM CDT) Narrative Performed At Procedure Note Historical, [employer] Documents - 04/22/2013 6:13 AM CDT * HM IMAGING STUDY (04/22/2013 5:30 PM CDT) Narrative Performed At Procedure Note Historical, [employer] Documents - 04/22/2013 6:05 AM CDT * HM IMAGING STUDY (04/22/2013 5:30 PM CDT) Narrative Performed At Procedure Note Historical, [employer] Documents - 04/22/2013 6:05 AM CDT * HM EXTERNAL XRAY (04/22/2013 5:30 PM CDT) Narrative Performed At Procedure Note Historical, [employer] Documents - 04/22/2013 6:05 AM CDT * HM EXTERNAL XRAY (04/22/2013 5:30 PM CDT) Narrative Performed At Procedure Note Historical, [employer] Documents - 04/22/2013 6:05 AM CDT * HM EXTERNAL XRAY (04/22/2013 5:30 PM CDT) Narrative Performed At Procedure Note Historical, [employer] Documents - 04/22/2013 6:05 AM CDT documented in this encounter Visit Diagnoses Not on filedocumented in this encounter
--- OUTSIDE RECORDS SUMMARY | 2019-05-25 03:20 | XMS REPORT | Encounter Summary ---
Author Author [facility] Organization [facility] Address Unknown Phone Unavailable Care Team Providers Care Chiropractic Doctor Name Role Phone Ramsey Valladares MD PCP Encounter Details Care Team Description Date Type Department Link, Onbase 09/19/2012 [facility] HISTORICAL CONVERSION Social History Date Tobacco Use Types Packs/Day Years Used Current Every Day Smoker Cigarettes 1 Smokeless Tobacco: Never Used Drinks/Week oz/Week Comments Alcohol Use Yes Control Partners Comments Sexually Active Female Not Currently Sex Assigned at Date Recorded Not on file Industry Job Start Date Occupation Not on file Not on file Not on file Travel End Travel History Travel Start No recent travel history available. documented as of this encounter Progress Notes * Link, Onbase - 04/25/2013 3:47 AM CDT T documented in this encounter Plan of Treatment Not on filedocumented as of this encounter Visit Diagnoses Not on filedocumented in this encounter
--- OUTSIDE RECORDS SUMMARY | 2019-05-25 03:22 | XMS REPORT | Encounter Summary ---
Author Author [facility] Organization [facility] Address Unknown Phone Unavailable Care Team Providers Care Magnetic Tape Typewriter Operator Name Role Phone Ramsey Valladares MD PCP Encounter Details Care Team Description Date Type Department Ramsey Valladares MD [address] [place] [place] [address] [phone] 08/01/2012 [facility] HISTORICAL CONVERSION Social History Date Tobacco Use [...] as of this encounter Progress Notes * Ramsey Valladares MD - 08/01/2012 2:22 PM CDT [facility] Phone Note August 01, 2012 Patient: Paul Kendrick Lorraine Provider: Billie Carvalho MD : 1950 C-O PCP: Ramsey Valladares MD Pharmacy: [id number] Work Phone: Pharmacy: [facility] phone: Last PE: 07/03/2010 Time of call: 08/01/2012 2:19 PM Last Lipids: 03/30/2012 Last TSH: 07/03/2010 [facility] Reason for call: Illness Pain Assessment: Pain assessment is not applicable. Message: pt was just admitted to [facility] and is becoming violent. staff is worried about him hitting staff or other clients. pt is unable to collect t houghts and insisting on smoking. asking for something to calm him. ativan po or im, valium....[phone] Call received by: Katherin Martinez LPN. Active Medications Brand Name Generic Name Dose Sig Code Stop date Glyburide Glyburide 5 Mg take 1 tablet (5MG) by oral route every day with shannan kfast 08/01/2012 Atorvastatin Calcium Atorvastatin Calcium 20 Mg take 1 tablet (20MG) by oral ro lisandro every day 08/01/2012 Trazodone Hcl Trazodone Hcl 50 Mg take 0.5 tablet (25MG) by ORAL route as need ed for sleep Seroquel Xr Quetiapine Fumarate 200 Mg take 1 Tablet (200MG) by ORAL route fiona ry day in the evening without food or with a light meal Lisinopril Lisinopril 40 Mg One po daily ( not taking ) 08/01/2012 Metformin Hcl Er Metformin Hcl 500 Mg Two po twice daily 08/01/2012 Seroquel Quetiapine Fumarate 400 Mg take 3 Tablet (1200MG) by ORAL route every day 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 dx: 250.00 Allergies Allergy Reaction Comment Haloperidol Psychotic Reaction Haldol Haloperidol Lactate Psychotic Reaction Haldol Physician Disposition: lorezapam 1mg po tid prn agiation for [address] valeo for [facility]p orders. w.o. per dr radha carvalho Recorded by: Katherin Martinez LPN Written order, Billie Carvalho MD Medications Prescribed or Refilled Today Brand Name Dose Sig Code Quantity Refills Samples Lorazepam 1 Mg take 1 tablet (1MG) by oral route 3 times every day as needed fo r anxiety for 3 days only 9 0 N Action Taken: Orders given to nurse Notification Completed: Katherin Martinez LPN 08/01/2012 2:54 PM * Ramsey Valladares MD - 08/01/2012 2:07 PM CDT [facility] Phone Note August 01, 2012 Patient: Paul Peters Provider: Ramsey Valladares MD : 1950 C-O PCP: Ramsey Valladares MD Pharmacy: [id number] (Rx used) Work Phone: Pharmacy: [facility] phone: Last PE: 07/03/2010 Time of call: 08/01/2012 1:57 PM Last Lipids: 03/30/2012 Last TSH: 07/03/2010 Caller: [facility] Reason for call: Medication refill Pain Assessment: Pain assessment is not applicable. Message: GLYBURIDE 5 mg take 1 tablet (5MG) by oral route every day with shannan kfast Qty LISINOPRIL 40 mg One po daily ( not taking ) Qty 30 ATORVASTATIN CALCIUM 20 mg take 1 tablet (20MG) by oral route every day Qty METFORMIN HCL ER 500 mg Two po twice daily Qty 120 nh states pt can not get meds through their pharmacy until 1000pm tonight and asking for them to be call ed out to pts pharmacy. Call received by: Katherin Martinez LPN. Active Medications Brand Name Generic Name Dose Sig Code Stop date Atorvastatin Calcium Atorvastatin Calcium 20 Mg take 1 tablet (20MG) by oral ro lisandro every day 08/01/2012 Glyburide Glyburide 5 Mg take 1 tablet (5MG) by oral route every day with shannan kfast 08/01/2012 Seroquel Xr Quetiapine Fumarate 200 Mg take 1 Tablet (200MG) by ORAL route fiona ry day in the evening without food or with a light meal Trazodone Hcl Trazodone Hcl 50 Mg take 0.5 tablet (25MG) by ORAL route as need ed for sleep Lisinopril Lisinopril 40 Mg One po daily ( not taking ) 08/01/2012 Metformin Hcl Er Metformin Hcl 500 Mg Two po twice daily 08/01/2012 Seroquel Quetiapine Fumarate 400 Mg take 3 Tablet (1200MG) by ORAL route every day 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 dx: 250.00 Allergies Allergy Reaction Comment Haloperidol Psychotic Reaction Haldol Haloperidol Lactate Psychotic Reaction Haldol Physician Disposition: okay Recorded by: Katherin Martinez LPN Written order, Ramsey Valladares MD Medications Prescribed or Refilled Today Brand Name Dose Sig Code Quantity Refills Samples Atorvastatin Calcium 20 Mg take 1 tablet (20MG) by oral route every day 15 0 N Lisinopril 40 Mg One po daily ( not taking ) 15 0 N Glyburide 5 Mg take 1 tablet (5MG) by oral route every day with breakfast 15 0 N Metformin Hcl Er 500 Mg Two po twice daily 60 11 N Action Taken: The prescription was sent to the pharmacy via eRx Notification Completed: Katherin Martinez LPN 08/01/2012 2:04 PM * Ramsey Valladares MD - 08/01/2012 11:35 AM CDT [facility] Phone Note August 01, 2012 Patient: Paul Peters Provider: Ramsey Valladares MD : 1950 C-O PCP: Ramsey Valladares MD Pharmacy: [place] [id number] Work Phone: Pharmacy: [facility] phone: Last PE: 07/03/2010 Time of call: 08/01/2012 11:08 AM Last Lipids: 03/30/2012 Last TSH: 07/03/2010 Caller: [facility] Reason for call: Question Pain Assessment: Pain assessment is not applicable. Message: pt will be admitted to [facility] in an emergency and asking that the office faxes a med list and an order for an emergency admit. [phone] Call received by: Katherin Martinez LPN. Active Medications Brand Name Generic Name Dose Sig Code Stop date Glyburide Glyburide 5 Mg take 1 tablet (5MG) by oral route every day with shannan kfast Seroquel Xr Quetiapine Fumarate 200 Mg take 1 Tablet (200MG) by ORAL route fiona ry day in the evening without food or with a light meal Trazodone Hcl Trazodone Hcl 50 Mg take 0.5 tablet (25MG) by ORAL route as need ed for sleep Atorvastatin Calcium Atorvastatin Calcium 20 Mg take 1 tablet (20MG) by oral ro lisandro every day Seroquel Quetiapine Fumarate 400 Mg take 3 Tablet (1200MG) by ORAL route every day Lisinopril Lisinopril 40 Mg One po daily ( not taking ) Metformin Hcl Er Metformin Hcl 500 Mg Two po twice daily 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 dx: 250.00 Allergies Allergy Reaction Comment Haloperidol Psychotic Reaction Haldol Haloperidol Lactate Psychotic Reaction Haldol Physician Disposition: okay Recorded by: Katherin Martinez LPN Written order, Ramsey Valladares MD Action Taken: note and med list faxed. Notification Completed: Katherin Martinez LPN 08/01/2012 11:35 AM * Ramsey Valladares MD - 08/01/2012 11:33 AM CDT [facility] at [address] [place] [address] August 01, 2012 RE:Paul Peters [address], [place] [address]- : 1950 _ To whom it may concern, The above patient is needing an emergency admis yoselin to [facility] today. A medication list to follow. Patient is to continu e all medications. Sincerely yours, Ramsey Valladares MD * Ramsey Valladares MD - 08/01/2012 11:33 AM CDT [facility] at [address] [place] [address] Paul Peters [address] [place] [phone] _ This is your current medication list as of August 01, 2012. Please take this l ist with you when you visit any Health Care Provider. Notify us of any changes at the number above and we will provide you with an updated list. Your Current Medications Brand Name Generic Name Dose Directions Glyburide Glyburide 5 Mg take 1 tablet (5MG) by oral route every day with shannan kfast Seroquel Xr Quetiapine Fumarate 200 Mg take 1 Tablet (200MG) by ORAL route fiona ry day in the evening without food or with a light meal Trazodone Hcl Trazodone Hcl 50 Mg take 0.5 tablet (25MG) by ORAL route as need ed for sleep Atorvastatin Calcium Atorvastatin Calcium 20 Mg take 1 tablet (20MG) by oral ro lisandro every day Seroquel Quetiapine Fumarate 400 Mg take 3 Tablet (1200MG) by ORAL route every day Lisinopril Lisinopril 40 Mg One po daily ( not taking ) Metformin Hcl Er Metformin Hcl 500 Mg Two po twice daily 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 dx: 250.00 Allergies Allergen Reaction Comment Haloperidol Psychotic Reaction Haldol Haloperidol Lactate Psychotic Reaction Haldol Please notify me promptly if this information is not correct. Ramsey Valladares MD documented in this encounter Plan of Treatment Not on filedocumented as of this encounter Visit Diagnoses Not on filedocumented in this encounter
--- OUTSIDE RECORDS SUMMARY | 2019-05-25 03:22 | XMS REPORT | Encounter Summary ---
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 complaints. ANY OF THESE SYMPTOMS MAY REPRESENT A SERIOUS PROBLEM THAT IS AN EMERGENCY. Do n ot wait to see if the symptoms will go away. Get medical help at once. Call your local emergency services (911 in the [place] DO NOT drive yourself to the hospit al. Document Released: 10/18/2006 Document Re-Released: 08/15/2010 ExitCare Patient Information 2011 [employer]. Smoking Cessation This document explains the best ways for you to quit smoking and new treatments to help. It lists new medicines that can double or triple your chances of quitti ng and quitting for good. It also considers ways to avoid relapses and concerns you may have about quitting, including weight gain. NICOTINE: A POWERFUL ADDICTION If you have tried to quit smoking, you know how hard it can be. It is hard becau se nicotine is a very addictive drug. For some people, it can be as addictive as heroin or cocaine. Usually, people make 2 or 3 tries, or more, before finally b eing able to quit. Each time you try to quit, you can learn about what helps and what hurts. Quitting takes hard work and a lot of effort, but you can quit smok ing. QUITTING SMOKING IS ONE OF THE MOST IMPORTANT THINGS YOU WILL EVER DO: You will live longer, feel better, and live better. The impact on your body of quitting smoking is felt almost immediately: l Within 20 minutes, blood pressure decreases. Pulse returns to its normal level . l After 8 hours, carbon monoxide levels in the blood return to normal. Oxygen le cristina increases. l After 24 hours, chance of heart attack starts to decrease. Breath, hair, and b eriberto stop smelling like smoke. l After 48 hours, damaged nerve endings begin to recover. Sense of taste and sme ll improve. l After 72 hours, the body is virtually free of nicotine. Bronchial tubes relax and breathing becomes easier. l After 2 to 12 weeks, lungs can hold more air. Exercise becomes easier and circ ulation improves. Quitting will lower your chance of having a heart attack, stroke, cancer, or lung disease: l After 1 year, the risk of coronary heart disease is cut in half. l After 5 years, the risk of stroke falls to the same as a nonsmoker. l After 10 years, the risk of lung cancer is cut in half and the risk of other c ancers decreases significantly. l After 15 years, the risk of coronary heart disease drops, usually to the level of a nonsmoker. If you are , quitting smoking will improve your chances of having a h ealthy baby. The people you live with, especially your children, will be healthier. You will have extra money to spend on things other than cigarettes. FIVE KEYS TO QUITTING Studies have shown that these 5 steps will help you quit smoking and quit for go od. You have the best chances of quitting if you use them together: 1 .Get ready. 2 .Get support and encouragement. 3 .Learn new skills and behaviors. 4 .Get medicine to reduce your nicotine addiction and use it correctly. 5 .Be prepared for relapse or difficult situations. Be determined to continue tr long to quit, even if you do not succeed at first. 1. GET READY Set a quit date. Change your environment. l Get rid of ALL cigarettes, ashtrays, matches, and lighters in your home, car, and place of work. l Do not let people smoke in your home. Review your past attempts to quit. Think about what worked and what did not. Once you quit, do not smoke. NOT EVEN A PUFF! 2. GET SUPPORT AND ENCOURAGEMENT Studies have shown that you have a better chance of being successful if you have help. You can get support in many ways. Tell your family, friends, and coworkers that you are going to quit and need their support. Ask them not to smoke around you. Talk to your caregivers (doctor, dentist, nurse, pharmacist, psychologist, an d/or smoking counselor). Get individual, group, or telephone counseling and support. The more counseli ng you have, the better your chances are of quitting. Programs are available at local hospitals and health centers. Call your local health department for inform ation about programs in your area. Spiritual beliefs and practices may help some smokers quit. Quit meters are small computer programs online or downloadable that keep [facility] k of quit statistics, such as amount of "quit-time," cigarettes not smoked, and money saved. Many smokers find one or more of the many self-help books available useful in helping them quit and stay off tobacco. 3. LEARN NEW SKILLS AND BEHAVIORS Try to distract yourself from urges to smoke. Talk to someone, go for a walk, or occupy your time with a task. When you first try to quit, change your routine. Take a different route to wo rk. Drink tea instead of coffee. Eat breakfast in a different place. Do something to reduce your stress. Take a hot bath, exercise, or read a book . Plan something enjoyable to do every day. Reward yourself for not smoking. Explore interactive web-based programs that specialize in helping you quit. 4. GET MEDICINE AND USE IT CORRECTLY Medicines can help you stop smoking and decrease the urge to smoke. Combining me dicine with the above behavioral methods and support can quadruple your chances of successfully quitting smoking. The [place] Food and Drug Administration (FDA) has approved 7 medicines to help you quit smoking. These medicines fall into 3 categories. Nicotine replacement therapy (delivers nicotine to your body without the nega tive effects and risks of smoking): l Nicotine gum: Available [id number]. l Nicotine lozenges: Available [id number]. l Nicotine inhaler: Available by prescription. l Nicotine nasal spray: Available by prescription. l Nicotine skin patches (transdermal): Available by prescription and over-the-co unter. Antidepressant medicine (helps people abstain from smoking, but how this work s is unknown): l Bupropion sustained-release (SR) tablets: Available by prescription. Nicotinic receptor partial agonist (simulates the effect of nicotine in your brain): l Varenicline tartrate tablets: Available by prescription. Ask your caregiver for advice about which medicines to use and how to use the m. Carefully read the information on the package. Everyone who is trying to quit may benefit from using a medicine. If you are or trying to become , nursing an infant, you are under age 18, or you smoke fewer than 10 cigarettes per day, talk to your caregiver before adebayo ing any nicotine replacement medicines. You should stop using a nicotine replacement product and call your caregiver if you experience nausea, dizziness, weakness, vomiting, fast or irregular heart beat, mouth problems with the lozenge or gum, or redness or swelling of the skin around the patch that does not go away. Do not use any other product containing nicotine while using a nicotine repla cement product. Talk to your caregiver before using these products if you have diabetes, hear t disease, asthma, stomach ulcers, you had a recent heart attack, you have high blood pressure that is not controlled with medicine, a history of irregular hear tbeat, or you have been prescribed medicine to help you quit smoking. 5. BE PREPARED FOR RELAPSE OR DIFFICULT SITUATIONS Most relapses occur within the first 3 months after quitting. Do not be disco uraged if you start smoking again. Remember, most people try several times befor e they finally quit. You may have symptoms of withdrawal because your body is used to nicotine. Yo u may crave cigarettes, be irritable, feel very hungry, cough often, get headach es, or have difficulty concentrating. The withdrawal symptoms are only temporary. They are strongest when you first quit, but they will go away within 10 to 14 days. Here are some difficult situations to watch for: Alcohol. Avoid drinking alcohol. Drinking lowers your chances of successfully quitting. Caffeine. Try to reduce the amount of caffeine you consume. It also lowers yo ur chances of successfully quitting. Other smokers. Being around smoking can make you want to smoke. Avoid smokers . Weight gain. Many smokers will gain weight when they quit, usually less than 10 pounds. Eat a healthy diet and stay active. Do not let weight gain distract y ou from your main goal, quitting smoking. Some medicines that help you quit smok ing may also help delay weight gain. You can always lose the weight gained after you quit. Bad mood or depression. There are a lot of ways to improve your mood other th an smoking. If you are having problems with any of these situations, talk to your caregiver. SPECIAL SITUATIONS OR CONDITIONS Studies suggest that everyone can quit smoking. Your situation or condition can give you a special reason to quit. women/New mothers: By quitting, you protect your baby's health and y our own. Hospitalized patients: By quitting, you reduce health problems and help heali ng. Heart attack patients: By quitting, you reduce your risk of a second heart at tack. Lung, head, and neck cancer patients: By quitting, you reduce your chance of a second cancer. Parents of children and adolescents: By quitting, you protect your children f rom illnesses caused by secondhand smoke. QUESTIONS TO THINK ABOUT Think about the following questions before you try to stop smoking. You may want to talk about your answers with your caregiver. Why do you want to quit? If you tried to quit in the past, what helped and what did not? What will be the most difficult situations for you after you quit? How will y ou plan to handle them? Who can help you through the tough times? Your family? Friends? Caregiver? What pleasures do you get from smoking? What ways can you still get pleasure if you quit? Here are some questions to ask your caregiver: How can you help me to be successful at quitting? What medicine do you think would be best for me and how should I take it? What should I do if I need more help? What is smoking withdrawal like? How can I get information on withdrawal? Quitting takes hard work and a lot of effort, but you can quit smoking. FOR MORE INFORMATION Smokefree.gov (http://www.smokefree.gov) provides free, accurate, evidence-based information and professional assistance to help support the immediate and long- term needs of people trying to quit smoking. Most information courtesy of "Treating Tobacco Use and Dependence" a U.S. Public Health Service-sponsored Clinical Practice Guideline. Document Released: 10/12/2002 Document Re-Released: 01/12/2011 ExitCare [facility] 2011 [facility] documented in this encounter Medications at Time of Discharge Start Date End Date Medication Sig Dispensed Refills 08/24/2012 09/23/2012 divalproex (DEPAKOTE Take 4 240 capsule 0 SPRINKLE) 125 MG capsule capsules (500 mg total) by mouth every 12 (twelve) hours for 30 days. 08/24/2012 09/23/2012 trazodone (DESYREL) 50 MG Take 1 tablet 30 tablet 0 tablet (50 mg total) by mouth nightly as needed for Sleep for 30 days. 08/24/2012 acetaminophen (TYLENOL) Take 650 mg 0 325 MG tabletIndications: by mouth Pain every 6 (six) hours as needed. Indications: Pain 08/10/2012 01/24/2013 aspirin 325 MG tablet Take 1 tablet 0 (325 mg total) by mouth daily. 08/10/2012 04/04/2013 aspirin 325 MG tablet Take 325 mg 0 by mouth daily. 04/04/2013 atorvastatin (LIPITOR) 20 Take 20 mg by 0 MG tablet mouth nightly. 08/10/2012 10/24/2012 citalopram (CELEXA) 20 MG Take 1 tablet 0 tablet (20 mg total) by mouth every morning. 08/24/2012 10/17/2012 clonidine (CATAPRES) 0.1 Take 1 tablet 30 tablet 0 MG tablet (0.1 mg total) by mouth every 8 (eight) hours as needed (for sbp>170 or dbp>100). 08/02/2012 08/24/2012 divalproex (DEPAKOTE ER) Take 1 tablet 0 500 MG 24 hr tablet (500 mg total) by mouth nightly. 08/10/2012 10/17/2012 donepezil (ARICEPT) 5 MG Take 1 tablet 0 tablet (5 mg total) by mouth nightly. 08/24/2012 10/24/2012 hydrocodone-acetaminophen Take 1 tablet 30 tablet 0 (NORCO) 5-325 MG by mouth every 6 (six) hours as needed (over 05/10). 08/10/2012 08/24/2012 LEVEMIR, insulin detemir, Inject 8 10 mL 0 (LEVEMIR) 100 UNIT/ML Units into injection the skin 2 (two) times daily. 08/24/2012 lisinopril Take 40 mg by 0 (PRINIVIL,ZESTRIL) 40 MG mouth daily. tablet 08/24/2012 metformin (GLUCOPHAGE) Take 1,000 mg 0 1000 MG tablet by mouth 2 (two) times daily with meals. 08/10/2012 08/24/2012 nicotine (NICODERM CQ) 14 Place 1 patch 28 patch 0 MG/24HR onto the skin daily. 08/24/2012 01/24/2013 nicotine (NICODERM CQ) 14 Place 1 patch 28 patch 0 MG/24HR onto the skin daily. If not allowed to smoke 08/02/2012 08/24/2012 NOVOLOG, insulin aspart, Inject 0-28 10 mL 0 (NOVOLOG) 100 UNIT/ML Units into injection the skin 4 (four) times daily before meals and nightly. 08/10/2012 08/24/2012 NOVOLOG, insulin aspart, Inject 5 10 mL 0 (NOVOLOG) 100 UNIT/ML Units into injection the skin 3 (three) times daily before meals. 08/24/2012 10/24/2012 NOVOLOG, insulin aspart, Inject 0-28 10 mL 0 (NOVOLOG) 100 UNIT/ML Units into injection the skin 4 (four) times daily before meals and nightly. 08/02/2012 08/24/[address] 1 0 (ZYPREXA) 5 MG tablet (5 mg disintegrating tablet total) under the tongue every 4 (four) hours as needed. 08/10/2012 08/24/2012 quetiapine (SEROQUEL XR) Take 1 tablet 0 300 MG 24 hr tablet (300 mg total) by mouth Daily At 1700. 08/24/2012 10/17/2012 quetiapine (SEROQUEL) 100 Take 1 tablet 120 tablet 0 MG tablet (100 mg total) by mouth 3 (three) times daily. And 50 mg po tid prn anxiety/agita tion 08/24/2012 trazodone (DESYREL) TABS Take 25 mg by 0 mouth nightly. documented as of this encounter Progress Notes * Rnony Hayes - 08/10/2012 1:21 PM CDT DC instructions placed in manilla envelope. Meds and manilla envelope, and pt's personal belongings given to SDU. Pt DC'd via wheelchair to SDU with two 5N staf f. DC time 1321 * Geronimo Monterroso MD - 08/10/2012 12:07 PM CDT [place] [id number] HOSPITALIST DAILY PROGRESS NOTE Patient Name: Mark Saldaña : 1950 Referring Physician: Ramsey Valladares MD Admission Date: 08/01/2012 Chief Complaint: Acute delirium SUBJECTIVE: Pt is alert and more interactive today, denies pain or SOB. No other acute event s. Scheduled Meds: aspirin 325 mg Oral Daily atorvastatin 20 mg Oral Daily citalopram 20 mg Oral QAM divalproex 500 mg Oral Nightly donepezil 5 mg Oral Nightly enoxaparin 40 mg Subcutaneous Daily LEVEMIR (insulin detemir) 8 Units Subcutaneous BID lisinopril 40 mg Oral Daily metformin 1,000 mg Oral BIDCM nicotine 1 patch Transdermal Daily NOVOLOG (insulin aspart) 0-28 Units Subcutaneous AC & HS NOVOLOG (insulin aspart) 5 Units Subcutaneous TIDAC quetiapine 300 mg Oral Daily At 1700 trazodone 25 mg Oral Nightly Continuous Infusions: PRN Meds: acetaminophen, dextrose, labetalol, lorazepam, olanzapine zydis, onda nsetron OBJECTIVE: Vitals: BP 130/75 | Pulse 89 | Temp 97.1 F (36.2 C) | Resp 18 | Ht 5' 10" (1.778 m) | Wt 168 lb 3 oz (76.289 kg) | BMI 24.13 kg/m2 | SpO2 94% Temp (24hrs), Av.4 F (36.3 C), Min:97.1 F (36.2 C), Max:98 F (36.7 C) Exam: General: Alert, no distress, appears stated age Head: Normocephalic, atraumatic Eyes: EOM's intact Neck: No JVD, no bruits Lungs: Clear to auscultation bilaterally, respirations unlabored Chest Wall: No tenderness or deformity Heart: Regular rate and rhythm, no murmurs, rubs, or gallop Abdomen: Soft, non-tender, non-distended, bowel sounds present Ext: No edema Vascular: Distal pulses intact Neuro: Non-focal deficits, motor 4/5 on 4 extremeites, but the rest of exam was not completed as pt is not cooperative, has expressive aphasia, oriented x2 not time Psych: Normal affect I/O: 08/09 701 - 08/10 07 In: 670 [P.O.:660; I.V.:10] Out: - Intake/Output this shift: I/O this shift: In: 120 [P.O.:120] Out: - Labs: Blood Sugars: Lab 08/10/12 1003 08/09/12 2026 08/09/12 1708 08/09/12 1342 08/09/12 1052 2102 NGLU 115* 134* 100 110* 151* 112* Lab 08/07/12 1130 10/06/12 2129 WBC 5.7 6.4 HGB 13.5 14.3 HCT 40.1 42.8 PLT 178 194 NEUTOPHILPCT 64.8 46.3 MONOPCT 6.2 7.1 Lab 08/07/12 1130 08/06/122128 NA 140 141 K 4.2 4.2 CL 109 110 CO2 25 26 BUN 15 21* CREATININE 0.8 0.8 GLU 155* 136* CALCIUM 8.8 9.1 ALB -- -- PROT -- -- BILITOT -- -- ALKPHOS -- -- ALT -- -- AST -- -- Lab Results Component Value Date CKMB <0.2 08/05/2012 TROPONINI <0.006 08/05/2012 No results found for this basename: APTT:3,INR:3,LABPROT:3 in the last 168 hours Imaging: Xr Chest 1 View 08/01/2012 Reason For Exam: delirium Clinical History: Delirium. Technique: Po rtable single view chest. Comparison: March 19, 2012. Findings: The cardiac silh ouette and mediastinal contour are unremarkable. No hilar lymphadenopathy is garth reciated. The lungs are clear. There is no pneumothorax or pleural effusion. Im pression: No acute cardiopulmonary process. Ct Head Without Contrast 08/01/2012 Reason For Exam: confusion Clinical History: Confusion. Technique: CT head without intravenous contrast. Comparison: April 23, 2011. Findings: The re is no acute intracranial hemorrhage. Periventricular hypodensity is suggestiv e of chronic microvascular ischemic disease. Encephalomalacia is present in the left parietal, occipital, and temporal lobes, as well as the left cerebellum. C erebral atrophy is noted. Old lacunar infarcts are seen the right basal ganglia. There is no mass effect or midline shift. The basal cisterns are patent. No ter ritorial infarct is identified. There is no depressed skull fracture. Atheromato us calcification is noted of the carotid and vertebral arteries. Mild ethmoid s inus inflammatory changes are noted. Impression: 1. No acute intracranial abno rmality. 2. Advanced chronic microvascular ischemia with multiple areas of encep halomalacia, likely from remote infarcts. ASSESSMENT / PLAN: Patient Active Problem List Diagnoses Date Noted Acute psychosis [298.9] 08/01/2012 Class: Acute Accelerated hypertension [401.0] 03/19/2012 DM (diabetes mellitus), type 2, uncontrolled [250.02] 03/19/2012 CVA (cerebral vascular accident) [434.91] 03/19/2012 Class: Acute Overview Note: (last update: 08/05/2012) New area diffusion restriction and associated T1 and T2 signal changes are pre sent in the posterior left temporal lobe consistent with subacute infarct on MRI performed 08/05/2012 Depression [311] 03/19/2012 Cognitive disorder [294.9] 03/19/2012 Suicidal ideations [V62.84] 03/19/2012 Cocaine abuse [305.60] 03/19/2012 Bipolar affective disorder [296.80] 12/24/2011 Bipolar affective [296.80] 05/07/2011 Vascular dementia [290.40] 05/07/2011 CVA (cerebral infarction) [434.91] 05/05/2011 *Acute delirium [780.09] 04/24/2011 DM (diabetes mellitus) [250.00] 04/24/2011 Atherosclerotic cerebrovascular disease [437.0] 04/24/2011 HTN (hypertension) [401.9] 04/24/2011 1- Acute stroke: Based on MRI report at frontal area, stable hemodynamically but still has expressive aphasia, will cont PT/OT, cont supportive measures and ian sing care.appreciate neuro input., Echo, Carotid doppler were unremarkable, will cont ASA and statin., 2- Hypotension: resolved, no fever, CBC reviewed and showed normal WBC. Will h old his BP meds if his SBP is low. 3- DM: elevated, will consult DM management team. 4- Depression, cont psych meds. 5- D/C plan: today Geronimo Monterroso MD Electronic Signature 08/10/2012 12:08 PM * Ce Arora RN - 08/10/2012 11:52 AM CDT Met with pt and case resource manager from [facility].Pt is alert and orient states "I just wan t to ,I dont want to live like this'.Discussed SDU pt and case resource manager agreeab le.Discussed with wants to admit pt.Will admit pt this pm for medi cation stabilization and behavior stablization. * Vivian Day RN - 08/10/2012 11:39 AM CDT Unable to perform discharge NIH stroke scale, patient uncooperative with adminis tration of stroke scale. * Richard Major, PT - 08/10/2012 10:24 AM CDT PT Daily Treatment: Patient Name: Mark Saldaña Physician: Geronimo Monterroso MD Subjective:[employer]NER GIVES OK TO OFFER TREATMENT TO PATIENT BUT HE CLEARLY REFUSES. Objective: Assessment: Plan: CONTINUE CHECK ON PRN. * Ronny Hayes - 08/10/2012 10:09 AM CDT Pt is now allowing us to get his blood sugar so that we can order his breakfast. Pt also stated that he will allow me to give him his insulin once food has arri jeffrey. * Ronny Hayes - 08/10/2012 9:56 AM CDT Pt stated he wanted breakfast, so I asked him what he wanted. He then said "I do n't know". I asked him different juices that he might want, and he said "I don't know". I explained to him that we would need to get his blood sugar once he ord ered. He said "Well I guess I won't eat then. There's always something. There's always something. Everything is always fucked up. It's none of your fucking busi ness". * Tanya Nielsen RN - 08/10/2012 8:44 AM CDT Spoke with pt bedside nurse regarding restarting this pt int needle. Pt is very combative and verbally wants to be left alone as indicated by notes from previou s encounters with staff today. Pt is supposed to go to SDU today. Will plan to d c outdated periph iv site or obtain order to leave site > 96 hrs. It may be difficult to start another iv site should this one be removed considering the pt behavior. T * Brooklynn Briseno CNA - 08/10/2012 7:53 AM CDT Pt. Refused to have his vitals taken. Pt stated "get away from me" when asked to get vitals. * Ronny Hayes - 08/10/2012 7:49 AM CDT I went in to the pt's room to do my assessment, and I asked the pt if he would l et us take his VS and blood sugar. The pt responded "get away from me". I then a sked him if I could do my assessment of him, and he responded "leave me alone". * Geronimo Monterroso MD - 08/09/2012 2:19 PM CDT [place] [address] HOSPITALIST DAILY PROGRESS NOTE Patient Name: Mark Saldaña : 1950 Referring Physician: Ramsey Valladares MD Admission Date: 08/01/2012 Chief Complaint: Acute delirium SUBJECTIVE: Pt is alert and more interactive today, denies pain or SOB. No other acute event s. Scheduled Meds: aspirin 325 mg Oral Daily atorvastatin 20 mg Oral Daily citalopram 20 mg Oral QAM divalproex 500 mg Oral Nightly donepezil 5 mg Oral Nightly enoxaparin 40 mg Subcutaneous Daily LEVEMIR (insulin detemir) 8 Units Subcutaneous BID lisinopril 40 mg Oral Daily metformin 1,000 mg Oral BIDCM nicotine 1 patch Transdermal Daily NOVOLOG (insulin aspart) 0-28 Units Subcutaneous AC & HS NOVOLOG (insulin aspart) 5 Units Subcutaneous TIDAC quetiapine 300 mg Oral Daily At 1700 trazodone 25 mg Oral Nightly Continuous Infusions: PRN Meds: acetaminophen, dextrose, labetalol, lorazepam, olanzapine zydis, onda nsetron OBJECTIVE: Vitals: BP 127/85 | Pulse 97 | Temp 97.8 F (36.6 C) | Resp 18 | Ht 5' 10" (1.778 m) | Wt 167 lb (75.751 kg) | BMI 23.96 kg/m2 | SpO2 98% Temp (24hrs), Av.1 F (36.7 C), Min:97.8 F (36.6 C), Max:98.7 F (37 .1 C) Exam: General: Alert, no distress, appears stated age Head: Normocephalic, atraumatic Eyes: EOM's intact Neck: No JVD, no bruits Lungs: Clear to auscultation bilaterally, respirations unlabored Chest Wall: No tenderness or deformity Heart: Regular rate and rhythm, no murmurs, rubs, or gallop Abdomen: Soft, non-tender, non-distended, bowel sounds present Ext: No edema Vascular: Distal pulses intact Neuro: Non-focal deficits, motor 4/5 on 4 extremeites, but the rest of exam was not completed as pt is not cooperative, has expressive aphasia, oriented x2 not time Psych: Normal affect I/O: 08/08 07 - 08/09 0700 In: 610 [P.O.:600; I.V.:10] Out: 0 Intake/Output this shift: I/O this shift: In: 300 [P.O.:300] Out: - Labs: Blood Sugars: Lab 08/09/12 1342 08/09/12 1052 08/08/12 2102 08/08/12 1814 08/08/12 1205 0847 NGLU 110* 151* 112* 165* 67* 145* Lab 08/07/[id number]/06/122128 WBC 5.7 6.4 HGB 13.5 14.3 HCT 40.1 42.8 PLT 178 194 NEUTOPHILPCT 64.8 46.3 MONOPCT 6.2 7.1 Lab 08/07/12 1130 10/06/12 2129 NA 140 141 K 4.2 4.2 CL 109 110 CO2 25 26 BUN 15 21* CREATININE 0.8 0.8 GLU 155* 136* CALCIUM 8.8 9.1 ALB -- -- PROT -- -- BILITOT -- -- ALKPHOS -- -- ALT -- -- AST -- -- Lab Results Component Value Date CKMB <0.2 08/05/2012 TROPONINI <0.006 08/05/2012 No results found for this basename: APTT:3,INR:3,LABPROT:3 in the last 168 hours Imaging: Xr Chest 1 View 08/01/2012 Reason For Exam: delirium Clinical History: Delirium. Technique: Po rtable single view chest. Comparison: March 19, 2012. Findings: The cardiac silh ouette and mediastinal contour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 Substance Use Topics Smoking status: Current Everyday Smoker -- 1.0 packs/day Types: Cigarettes Smokeless tobacco: Never Used Alcohol Use: Yes Review of Systems Unable to perform ROS Physical Exam BP 157/107 | Pulse 72 | Temp 97.8 F (36.6 C) | Resp 20 | Wt 81.647 kg (180 lb) | SpO2 95% Physical Exam Nursing note and vitals reviewed. Constitutional: Awake, alert, repeats "help" Does not answer questions Cannot state name HENT: Mouth/Throat: Oropharynx is clear and moist. Eyes: Conjunctivae are normal. Pupils are equal, round, and reactive to light. Neck: Normal range of motion. Neck supple. Cardiovascular: Normal rate and normal heart sounds. Pulmonary/Chest: Effort normal and breath sounds normal. Abdominal: Soft. Bowel sounds are normal. Musculoskeletal: He exhibits no edema. Neurological: Not oriented Skin: Skin is warm and dry. ED Course ELECTROCARDIOGRAM REPORT Performed by: Kaylynn LANCASTER Authorized by: Kaylynn LANCASTER Rhythm: sinus tachycardia [facility] Kaylynn Lancaster MD 08/01/12 1646 Kaylynn Lancaster MD 08/01/12 1712 * XR Chest 1 view (08/01/2012 5:06 PM CDT) Specimen Narrative Performed At Reason For Exam: delirium [facility] Clinical History: Delirium. Technique: Portable single view chest. Comparison: March 19, 2012. Findings: The cardiac silhouette and mediastinal contour are unremarkable. No hilar lymphadenopathy is appreciated. The lungs are clear. There is no pneumothorax or pleural effusion. Impression: No acute cardiopulmonary process. Procedure Note Ed, Rad Results In - 08/01/2012 5:11 PM CDT Reason For Exam: delirium Clinical History: Delirium. Technique: Portable single view chest. Comparison: March 19, 2012. Findings: The cardiac silhouette and mediastinal contour are unremarkable. No hilar lymphadenopathy is appreciated. The lungs are clear. There is no pneumothorax or pleural effusion. Impression: No acute cardiopulmonary process. Performing Organization Address [facility] Phone Number [facility] * Estimated GFR (08/01/2012 4:57 PM CDT) Pathologist [facility] GFR MDRD Af >59 >59 ml/min [facility] [...] body surface area. Specimen Performing Organization Address [facility] Phone Number [facility] [address] [place] [phone] [facility] * Salicylate level (08/01/2012 4:57 PM CDT) [facility] Salicylate <1 (L) 3 - 20 mg/dL [facility] Level Comment: Salicylate Reference Ranges: 3-20 mg/dL=Therapeutic >30 mg/dL=Toxic >60 mg/dL=Lethal Specimen Blood specimen (specimen) Performing Organization Address [facility] Phone Number [facility] [address] [place] [phone] [facility] * Troponin I (08/01/2012 4:57 PM CDT) [facility] Troponin I <0.006 0.000 - 0.040 ng/mL [facility] Comment: Troponin Reference Range: 0.00-0.04 ng/mL=Normal 0.05-0.39 ng/mL=Inconclusive, consider repeat in 3-6 hours >0.40 ng/mL=Indicative of Myocardial Cell Damage Elevations of cardiac Troponin-I are highly specific for any form of myocardial injury. Even slightly elevated levels can be associated with future cardiac events. Specimen Blood specimen (specimen) Performing Organization Address [facility] Phone Number [facility] [address] [place] [phone] [facility] * TSH (08/01/2012 4:57 PM CDT) Pathologist [facility] TSH 0.799 0.400 - 4.000 uIU/mL [facility] Specimen Blood specimen (specimen) Performing Organization Address [facility] Phone Number [facility] [address] [place] [address] [facility] * Acetaminophen level (08/01/2012 4:57 PM CDT) [facility] Acetaminophen <2.4 (L) 10.0 - 30.0 ug/mL [facility] Level Comment: Post-ingestionPossible Probable Concentration*Hepatotoxici ty Hepatotoxicity 4 hours 150 ug/mL 190 ug/mL 6 hours 100 ug/mL 140 ug/mL 8 hours75 ug/mL 100 ug/mL 12 hours40 ug/mL50 ug/mL *For a single acute acetaminophen overdose. Please note new concentration units and reference range, effective Jul 27, 2011. Specimen Blood specimen (specimen) Performing Organization Address [facility] Phone Number [facility] [address] [place] [phone] [facility] * Comprehensive metabolic panel (08/01/2012 4:57 PM CDT) Pathologist [facility] Albumin 4.7 3.4 - 4.8 g/dL [facility] Alkaline 121 29 - 122 U/L [facility] Phosphatase ALT 15 10 - 46 U/L [facility] AST 16 16 - 37 U/L [facility] Total Bilirubin 0.9 0.3 - 1.2 mg/dL [facility] BUN, Bld 9 6 - 20 mg/dL [facility] Calcium 9.9 8.7 - 10.5 mg/dL [facility] Chloride 96 (L) 99 - 111 mmol/L [facility] Creatinine 1.1 0.6 - 1.2 mg/dL [facility] Glucose 317 (H) 74 - 106 mg/dL [facility] Potassium 4.0 3.6 - 4.9 mmol/L [facility] Total Protein 7.8 6.4 - 8.3 g/dL [facility] Sodium 133 (L) 136 - 145 mmol/L [facility] CO2 32 20 - 36 mmol/L [facility] Specimen Blood specimen (specimen) Performing Organization Address [facility] Phone Number [facility] [address] [place] [phone] [facility] * CBC and differential (08/01/2012 4:57 PM CDT) WBC 8.5 4.8 - 10.8 10 3/cumm [facility] RBC 5.18 4.50 - 5.90 10 [facility] 6/cumm Hemoglobin 15.7 13.5 - 17.5 g/dL [facility] Hematocrit 46.2 40.0 - 52.0 % [facility] MCV 89.2 80.0 - 100.0 fL [facility] MCH 30.3 26.0 - 34.0 pg [facility] MCHC 34.0 31.0 - 37.0 g/dL [facility] RDW 13.7 10.0 - 14.8 % [facility] Platelets 214 147 - 412 10 3/cumm [facility] MPV 8.3 6.8 - 10.0 fL [facility] Neutrophils % 57.6 40.0 - 75.0 % [facility] Lymphocytes % 33.6 22.0 - 49.0 % [facility] Monocytes % 7.1 2.0 - 9.0 % [facility] Eosinophils % 1.5 0.0 - 5.0 % [facility] Basophils % 0.2 0.0 - 2.5 % [facility] Specimen Blood specimen (specimen) Performing Organization Address [facility] Phone Number [facility] [address] [place] [address] [phone] [facility] * Ammonia (08/01/2012 4:57 PM CDT) Ammonia 12 (L) 17 - 80 ug/dL [facility] Specimen Blood specimen (specimen) Performing Organization Address [facility] Phone Number [facility] [address] [place] [address] [phone] [facility] * Alcohol, Serum (08/01/2012 4:57 PM CDT) Alcohol Serum <10 0 - 10 mg/dL [facility] Comment: Al cohol Toxicity Levels: 10-50 mg/dL(or 0.01-0.05%)=None to mild euphoria 50-100 mg/dL(or 0.05-0.1%)=Mild influence on vision 100-150 mg/dL(or 0.1-0.15%)=Euphoria;prolonged reaction time; loss of inhibition 150-200 mg/dL(or 0.15-0.2%)=Reaction time greatly prolonged 200-250 mg/dL(or 0.2-0.25%)=Retardation of thought processes; disturbances of equilibrium 250-400 mg/dL(or 0.25-0.4%)=Deep, possibly fatal coma Specimen Blood specimen (specimen) Performing Organization Address [facility] Phone Number [facility] [address] [place] [phone] [facility] * Salicylates (08/01/2012 4:35 PM CDT) [facility] Salicylate, NEGATIVE [facility] Urine Specimen Performing Organization Address [facility] Phone Number [facility] [address] [place] [phone] [facility] * Drug Screen (8) Medical (08/01/2012 4:35 PM CDT) [facility] Amphetamine NEGATIVE Cutoff 1000 ng/mL [facility] Barbiturates NEGATIVE Cutoff 200 ng/mL [facility] Benzodiazepines NEGATIVE Cutoff 200 ng/mL [facility] Cocaine NEGATIVE Cutoff 300 ng/mL [facility] (Metabolite) Opiates POSITIVE Cutoff 300 ng/mL [facility] Comment: Results not confirmed. May not meet forensic requirements. Confirmation by GC/MS available upon request. PCP NEGATIVE Cutoff 25 ng/mL [facility] THC NEGATIVE Cutoff 50 ng/mL [facility] MDMA NEGATIVE Cutoff 500 ng/mL [facility] Specimen Urine specimen (specimen) - Urine, Unspecified Source Performing Organization Address [facility] Phone Number [facility] [address] [place] [phone] [facility] * Urinalysis, reflex culture if indicated (08/01/2012 4:35 PM CDT) Color, UA Light-Yellow [facility] Appearance CLEAR [facility] Specific 1.021 1.003 - 1.030 [facility] [place], UA pH, UA 5.5 5.0 - 8.0 [facility] Protein, UA NEG NEG [facility] Glucose, UA 4+ (A) NEG [facility] Ketones, UA NEG NEG [facility] Urobilinogen, 0.2 0.0 - 1.0 EU [facility] UA Bilirubin, UA NEG NEG [facility] Hemoglobin, UA NEG NEG [facility] Leukoesterase, NEG NEG [facility] UA Nitrites, UA NEG NEG [facility] Mucous RARE [facility] WBC, UA 0-3 0 - 3 /HPF [facility] Culture Set NOT PERFORMED [facility] RBC, UA NONE 0 - 3 /HPF [facility] Specimen Urine, Unspecified Source Performing Organization Address City/State/Zipcode Phone Number [facility] [address] [place], [place] [address] [facility] * EKG 12 lead (08/01/2012) Narrative Performed At documented in this encounter Visit Diagnoses Diagnosis Acute delirium - Primary Other alteration of consciousness Delirium Other alteration of consciousness Accelerated hypertension Essential hypertension, malignant DM (diabetes mellitus), type 2, uncontrolled (HCC) Type II or unspecified type diabetes mellitus without mention of complication, uncontrolled Depression Depressive disorder, not elsewhere classified Cognitive disorder Unspecified persistent mental disorders due to conditions classified elsewhere Acute psychosis (HCC) Unspecified psychosis Vascular dementia (HCC) Vascular dementia, uncomplicated CVA (cerebral vascular accident) (HCC) Unspecified cerebral artery occlusion with cerebral infarction documented in this encounter Administered Medications Action Date Dose Rate Site Medication Order MAR Action 08/06/2012 9:20 PM CDT 250 mL/hr 0.9% NaCl infusion New Bag Intravenous, BOLUS, 08/06/12 at 2130, For 1 dose 08/07/2012 1:07 AM CDT 250 mL/hr 0.9% NaCl infusion New Bag Intravenous, BOLUS, 08/07/12 at 0115, For 1 dose 08/05/2012 2:39 PM CDT 650 mg acetaminophen (TYLENOL) tablet 650 mg Given 650 mg EVERY 6 HOURS PRN, Oral, Mild Pain, Starting Zuri 08/04/12 at 2356, Maximum dose of acetaminophen is 3000 mg for adults (2600 mg for < 12 yr olds) from all sources in 24 hours., 650 mg Given 08/05/2012 12:09 AM CDT 08/09/2012 11:28 PM CDT 650 mg acetaminophen (TYLENOL) tablet 650 mg Given 650 mg EVERY 6 HOURS PRN, Oral, Mild Pain, Fever, Headaches, Starting Wed08/05/12 at 2231, Maximum dose of acetaminophen is 3000 mg for adults (2600 mg for < 12 yr olds) from all sources in 24 hours., 650 mg Given 08/09/2012 2:27 PM CDT 650 mg Given 08/08/2012 8:20 PM CDT 08/10/2012 12:10 PM CDT 325 mg aspirin tablet 325 mg Given 325 mg DAILY, Oral, First dose on Wed08/05/12 at 2130, HOLD FOR 24 HOURS IF TPA RECEIVED, 325 mg Given 08/08/2012 8:21 AM CDT 325 mg Given 08/07/2012 10:35 AM CDT 08/08/2012 8:21 AM CDT 20 mg atorvastatin (LIPITOR) tablet 20 mg Given 20 mg DAILY, Oral, First dose on Wed08/05/12 at 2300 20 mg Given 08/07/2012 10:35 AM CDT 20 mg Given 08/06/2012 10:10 AM CDT 08/08/2012 3:26 PM CDT 20 mg citalopram (CELEXA) tablet 20 mg Given 20 mg EVERY MORNING, Oral, First dose on 08/08/12 at 1330, [facility] , 08/09/2012 8:31 PM CDT 500 mg divalproex (DEPAKOTE ER) 24 hr tablet Given 500 mg 500 mg BEDTIME, Oral, First dose on Wed08/02/12 at 2100 500 mg Given 08/08/2012 8:20 PM CDT 500 mg Given 08/07/2012 9:30 PM CDT 08/09/2012 8:31 PM CDT 5 mg donepezil (ARICEPT) tablet 5 mg Given 5 mg BEDTIME, Oral, First dose on Wed08/07/12 at 2100 5 mg Given 08/08/2012 8:20 PM CDT 5 mg Given 08/07/2012 9:30 PM CDT 08/08/2012 8:21 AM CDT 40 mg enoxaparin (LOVENOX) injection 40 mg Given 40 mg DAILY, Subcutaneous, First dose on 08/01/12 at 2145 40 mg Given 08/06/2012 10:10 AM CDT 40 mg Given 08/05/2012 9:57 AM CDT 08/08/2012 9:09 PM CDT 16 Units LEVEMIR (insulin detemir) (LEVEMIR) Given injection 16 Units 16 Units 2 TIMES DAILY, Subcutaneous, First dose on 08/06/12 at 1515, Start tonight. Give now 8 units x1 dose. High Alert Medication [facility], 16 Units Given 08/08/2012 8:55 AM CDT 16 Units Given 08/07/2012 9:18 PM CDT 08/06/2012 4:31 PM CDT 8 Units LEVEMIR (insulin detemir) (LEVEMIR) Given injection 8 Units 8 Units ONCE, Subcutaneous, Sat 08/06/12 at 1515, For 1 dose, High Alert Medication [facility], 08/10/2012 10:49 AM CDT 8 Units LEVEMIR (insulin detemir) (LEVEMIR) Given injection 8 Units 8 Units 2 TIMES DAILY, Subcutaneous, First dose on Tu08/09/12 at 1115, High Alert Medication [facility], 8 Units Given 08/09/2012 8:29 PM CDT 8 Units Given 08/09/2012 10:57 AM CDT 08/05/2012 11:33 PM CDT 40 mg lisinopril (PRINIVIL,ZESTRIL) tablet 40 Given mg 40 mg DAILY, Oral, First dose on Wed08/05/12 at 2300, Hold if SBP is below 120mmhg, lorazepam (ATIVAN) 2 MG/ML injection OVERRIDE Starting Wed08/02/12 at 0218, For 1 dose, Mary Hodgson: klaus override If IV use, dilute immediately before use with an equal volume of sterile water, D5W or NS., 08/02/2012 2:22 AM CDT mg lorazepam (ATIVAN) injection 1 mg Given 1 mg ONCE, Intravenous, Wed08/02/12 at 0245, For 1 dose, If IV use, dilute immediately before use with an equal volume of sterile water, D5W or NS., 08/04/2012 10:33 PM CDT 1 mg lorazepam (ATIVAN) injection 1 mg Given 1 mg EVERY 4 HOURS PRN, Intravenous, Anxiety, Starting Wed08/02/12 at 1213, If IV use, dilute immediately before use with an equal volume of sterile water, D5W or NS., 1 mg Given 08/03/2012 10:29 PM CDT 1 mg Given 08/03/2012 12:42 PM CDT 08/09/2012 5:59 PM CDT 1,000 mg metformin (GLUCOPHAGE) tablet 1,000 mg Given 1,000 mg 2 TIMES DAILY WITH MEALS, Oral, First dose on Wed08/05/12 at 2300 1,000 mg Given 08/09/2012 10:58 AM CDT 1,000 mg Given 08/08/2012 6:50 PM CDT morphine 2 MG/ML injection OVERRIDE Starting Wed08/05/12 at 0026, For 1 dose, Mimi Meneses: mandieinet override [facility] , 08/05/2012 12:32 AM CDT 2 mg morphine injection 2 mg Given 2 mg ONCE, Intravenous, Wed08/05/12 at 0045, For 1 dose, [facility] , 08/08/2012 8:21 AM CDT 1 patch Back nicotine (NICODERM CQ) 14 MG/24HR 1 Patch patch Applied 1 patch DAILY, Transdermal, First dose on Zuri 08/04/12 at 2130 1 patch Back Patch Applied 08/07/2012 10:35 AM CDT 1 patch Left Deltoid Patch Applied 08/06/2012 10:10 AM CDT 08/10/2012 1:07 PM CDT 8 Units NOVOLOG (insulin aspart) (NOVOLOG) Given injection 0-28 Units 0-28 Units 4 TIMES DAILY BEFORE MEALS & NIGHTLY, Subcutaneous, First dose on 08/01/12 at 2145, 08/05/12 0930 increased to High Dose SSI Very low dose for initial algorithm BG Very low Low Mod High dose dose Dose Dose <70 Begin hypoglycemia protocol mg/dl 70-130 0 0 0 0 mg/dl units [...] units units units units And hyperglycemia protocol High Alert Medication [facility], 8 Units Given 08/09/2012 8:29 PM CDT 8 Units Given 08/09/2012 11:15 AM CDT 08/02/2012 3:54 AM CDT 3 Units NOVOLOG (insulin aspart) (NOVOLOG) Given injection 3 Units 3 Units ONCE, Subcutaneous, Wed08/02/12 at 0415, For 1 dose, High Alert Medication [facility], 08/10/2012 1:08 PM CDT 5 Units NOVOLOG (insulin aspart) (NOVOLOG) Given injection 5 Units 5 Units 3 TIMES DAILY BEFORE MEALS, Subcutaneous, First dose on Wed08/07/12 at 0730, High Alert Medication [facility], 5 Units Given 08/10/2012 10:47 AM CDT 5 Units Given 08/09/2012 5:51 PM CDT 08/01/2012 4:52 PM CDT 2.5 mg olanzapine (ZYPREXA) injection 2.5 mg Given by STAT, 2.5 mg ONCE, Intramuscular, Wed08/01/12 at 1700, For 1 dose 08/02/2012 2:32 AM CDT 2.5 mg olanzapine (ZYPREXA) injection 2.5 mg Given 2.5 mg ONCE, Intramuscular, Wed08/02/12 at 0215, For 1 dose 08/09/2012 10:52 PM CDT 5 mg olanzapine zydis (ZYPREXA) Given disintegrating tablet 5 mg 5 mg EVERY 4 HOURS PRN, Sublingual, Anxiety, Starting Wed08/01/12 at 2117 5 mg Given 08/09/2012 5:24 PM CDT 5 mg Given 08/08/2012 1:46 PM CDT 08/07/2012 9:30 PM CDT 200 mg quetiapine (SEROQUEL XR) 24 hr tablet Given 200 mg 200 mg BEDTIME, Oral, First dose on Wed08/05/12 at 2300, Do Not Crush. [facility] , 200 mg Given 08/05/2012 11:33 PM CDT 08/09/2012 5:23 PM CDT 300 mg quetiapine (SEROQUEL XR) 24 hr tablet Given 300 mg 300 mg DAILY AT 1700, Oral, First dose on Wed08/03/12 at 1700, Do Not Crush. LOOK-ALIKE/SOUND-ALIKE MED , 300 mg Given 08/08/2012 5:05 PM CDT 300 mg Given 08/07/2012 4:49 PM CDT sodium chloride 0.9 % infusion OVERRIDE Starting 08/06/12 at 2105, For 1 dose, Jenise Aviles: cabinet override, 08/09/2012 8:31 PM CDT 25 mg trazodone (DESYREL) tablet 25 mg Given 25 mg BEDTIME, Oral, First dose on Wed08/05/12 at 2300 25 mg Given 08/08/2012 8:20 PM CDT 25 mg Given 08/07/2012 9:30 PM CDT documented in this encounter
--- OUTSIDE RECORDS SUMMARY | 2019-05-25 03:22 | XMS REPORT | Encounter Summary ---
Author Author [facility] Organization [facility] Address Unknown Phone Unavailable Care Team Providers Care Sports Nutritionist Name Role Phone Ramsey Valladares MD PCP Encounter Details Care Team Description Date Type Department Link, Onbase 08/01/2012 NextGen Scans HISTORICAL CONVERSION Social History Date [...] encounter Progress Notes * Link, Onbase - 04/10/2013 3:21 AM CDT T documented in this encounter Plan of Treatment Not on filedocumented as of this encounter Procedures Comments Procedure Name Priority Date/Time Associated Diagnosis EXTERNAL XRAY 04/26/2013 1:49 PM CDT ECHOCARDIOGRAM 04/26/2013 1:49 PM CDT IMAGING STUDY 04/26/2013 1:49 PM CDT EXTERNAL XRAY 04/26/2013 1:49 PM CDT EXTERNAL ULTRASOUND 04/26/2013 1:49 PM CDT EXTERNAL XRAY 04/20/2013 8:22 PM CDT ECHOCARDIOGRAM 04/20/2013 8:22 PM CDT HM EXTERNAL ULTRASOUND 04/20/2013 8:22 PM CDT HM IMAGING STUDY 04/20/2013 8:22 PM CDT HM EXTERNAL XRAY 04/20/2013 8:22 PM CDT HM IMAGING STUDY 04/19/2013 9:28 AM CDT EXTERNAL LAB TEST 04/18/2013 6:35 AM CDT documented in this encounter Results * HM EXTERNAL XRAY (04/26/2013 1:49 PM CDT) Narrative Performed At Procedure Note Historical, [employer] Documents - 04/25/2013 3:36 AM CDT * ECHOCARDIOGRAM (04/26/2013 1:49 PM CDT) Narrative Performed At Procedure Note Historical, [employer] Documents - 04/25/2013 3:36 AM CDT * HM EXTERNAL ULTRASOUND (04/26/2013 1:49 PM CDT) Narrative Performed At Procedure Note Historical, [employer] Documents - 04/25/2013 3:36 AM CDT * HM IMAGING STUDY (04/26/2013 1:49 PM CDT) Narrative Performed At Procedure Note Historical, [employer] Documents - 04/25/2013 3:36 AM CDT * HM EXTERNAL XRAY (04/26/2013 1:49 PM CDT) Narrative Performed At Procedure Note Historical, [employer] Documents - 04/25/2013 3:36 AM CDT * HM EXTERNAL XRAY (04/20/2013 8:22 PM CDT) Narrative Performed At A scan was deleted from the Results section by N Historical [[id number]] on 04/25/2013 at6:03 PM (File: [id number]) * ECHOCARDIOGRAM (04/20/2013 8:22 PM CDT) Narrative Performed At A scan was deleted from the Results section by N Historical [[id number]] on 04/25/2013 at6:03 PM (File: [id number]) * HM EXTERNAL ULTRASOUND (04/20/2013 8:22 PM CDT) Narrative Performed At A scan was deleted from the Results section by Puja Jackson [[id number]] on 04/25/2013 at6:03 PM (File: [id number]) * IMAGING STUDY (04/20/2013 8:22 PM CDT) Narrative Performed At A scan was deleted from the Results section by Puja Jackson [[id number]] on 04/25/2013 at6:03 PM (File: [id number]) * EXTERNAL XRAY (04/20/2013 8:22 PM CDT) Narrative Performed At A scan was deleted from the Results section by Puja Jackson [[id number]] on 04/25/2013 at6:03 PM (File: [id number]) * IMAGING STUDY (04/19/2013 9:28 AM CDT) Narrative Performed At Procedure Note Historical, [employer] Documents - 04/17/2013 1:59 AM CDT * EXTERNAL LAB TEST (04/18/2013 6:35 AM CDT) Narrative Performed At Procedure Note TopBlip, [employer] Documents - 04/10/2013 3:21 AM CDT documented in this encounter Visit Diagnoses Not on filedocumented in this encounter
--- OUTSIDE RECORDS SUMMARY | 2019-05-25 03:22 | XMS REPORT | Encounter Summary ---
Author Author [facility] Organization [facility] Address Unknown Phone Unavailable Care Team Providers Care Program Attendant Name Role Phone Ramsey Valladares MD PCP Encounter Details Care Team Description Date Type Department Historical, Zeny ProviderMD [address] [place] [address] 04/07/2012 NextGen HISTORICAL CONVERSION Encounter Social History Date [...] Signs Reading Time Taken Comments Vital Sign 98/74 04/07/2012 11:19 AM CDT Blood Pressure - - Pulse - - Temperature - - Respiratory Rate - - Oxygen Saturation - - Inhaled Oxygen Concentration 84.1 kg (185 lb 4.8 oz) 04/07/2012 11:19 AM CDT Weight - - Height 26.59 03/30/2012 10:55 AM CDT Body Mass Index documented in this encounter Plan of Treatment Not on filedocumented as of this encounter Visit Diagnoses Not on filedocumented in this encounter
--- OUTSIDE RECORDS SUMMARY | 2019-05-25 03:22 | XMS REPORT | Encounter Summary ---
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 Phone Ramsey Valladares MD PCP Reason for Visit * Reason Comments Hyperglycemia Encounter Details Care Team Description Date Type Department Kaylynn Lancaster MD DM (diabetes mellitus), type 2, uncontrolled (HCC); Hyperglycemia 05/23/2012 Emergency [facility] [id number] [address] Social History Date Tobacco Use Types Packs/Day [...] Signs Reading Time Taken Comments Vital Sign 141/84 05/23/2012 6:30 PM CDT Blood Pressure 57 05/23/2012 6:30 PM CDT Pulse 37 C (98.6 F) 05/23/2012 3:42 PM CDT Temperature 16 05/23/2012 3:42 PM CDT Respiratory Rate 99% 05/23/2012 6:30 PM CDT Oxygen Saturation - - Inhaled Oxygen Concentration 90.7 kg (200 lb) 05/23/2012 3:42 PM CDT Weight 182.9 cm (6') 05/23/2012 3:42 PM CDT Height 27.12 05/23/2012 3:42 PM CDT Body Mass Index documented in this encounter Discharge Instructions * Instructions* aDvid Berry PA-C - 05/23/2012 Rest Increase fluids You must follow up with . You need to start on your medications again. documented in this encounter Medications at Time of Discharge Start Date End Date Medication Sig Dispensed Refills 03/24/2012 08/10/2012 Blood Glucose Monitoring Check blood 1 each 0 Suppl ([employer] BLOOD sugar four GLUCOSE MONITOR) MAYO times daily prior to meals and at bedtime. 03/24/2012 08/10/2012 glucose blood test strip Use as 100 each 12 instructed 03/24/2012 08/10/2012 glyBURIDE (DIABETA) 5 MG Take 1 tablet 30 tablet 1 tablet by mouth daily with breakfast. 05/23/2012 08/02/2012 glyBURIDE (DIABETA) 5 MG Take 1 tablet 30 tablet 0 tablet by mouth daily with breakfast. 05/23/2012 08/02/2012 metformin (GLUCOPHAGE) Take 1 tablet 20 tablet 0 500 MG tablet by mouth 2 (two) times daily with meals. documented as of this encounter Plan of Treatment Not on filedocumented as of this encounter Procedures Comments Procedure Name Priority Date/Time Associated Diagnosis BEDSIDE GLUCOSE - NURSE Routine 05/23/2012 6:22 PM CDT URINALYSIS, REFLEX STAT 05/23/2012 CULTURE IF NEEDED 4:00 PM CDT ESTIMATED GFR STAT 05/23/2012 3:45 PM CDT CBC AND DIFFERENTIAL STAT 05/23/2012 3:45 PM CDT COMPREHENSIVE METABOLIC STAT 05/23/2012 PANEL 3:45 PM CDT BEDSIDE GLUCOSE - NURSE Routine 05/23/2012 3:44 PM CDT documented in this encounter Results * Bedside Glucose - NURSE (05/23/2012 6:22 PM CDT) Bedside Glucose 292 (H) 74 - 106 mg/dL [facility] - Nurse Comment: Notified Nurse Notified Dr. Riri Sexton Organization Address City/State/Zipcode Phone Number [facility] [address] [place] [address] [facility] * Urinalysis, Reflex Culture If Needed (05/23/2012 4:00 PM CDT) Color, UA Light-Yellow [facility] Appearance CLEAR [facility] Specific 1.026 1.003 - 1.030 [facility] Leeper, UA pH, UA 5.0 5.0 - 8.0 [facility] Protein, UA NEG NEG [facility] Glucose, UA 4+ (A) NEG [facility] Ketones, UA NEG NEG [facility] Urobilinogen, 0.2 0.0 - 1.0 EU [facility] UA Bilirubin, UA NEG NEG [facility] Hemoglobin, UA NEG NEG [facility] Leukoesterase, NEG NEG [facility] UA Nitrites, UA NEG NEG [facility] Squam Epithel, 1+ 0-1+ [facility] UA Mucous RARE [facility] WBC, UA 0-3 0 - 3 /HPF [facility] Culture Set NOT PERFORMED [facility] RBC, UA 0-3 0 - 3 /HPF [facility] Specimen Urine, Clean Catch Performing Organization Address [facility] Phone Number [facility] [address] [place] [phone] [facility] * Estimated GFR (05/23/2012 3:45 PM CDT) GFR MDRD Af >59 >59 ml/min [facility] [...] body surface area. Specimen Performing Organization Address [facility] Phone Number [facility] [address] [place] [address] [facility] * Comprehensive Metabolic Panel (05/23/2012 3:45 PM CDT) Albumin 3.9 3.4 - 4.8 g/dL [facility] Alkaline 85 29 - 122 U/L [facility] Phosphatase ALT <13 10 - 46 U/L [facility] AST 14 (L) 16 - 37 U/L [facility] Total Bilirubin 0.6 0.3 - 1.2 mg/dL [facility] BUN, Bld 13 6 - 20 mg/dL [facility] Calcium 8.9 8.7 - 10.5 mg/dL [facility] Creatinine 1.2 0.6 - 1.2 mg/dL [facility] Glucose 488 (H) 74 - 106 mg/dL [facility] Potassium 3.7 3.6 - 4.9 mmol/L [facility] Total Protein 6.8 6.4 - 8.3 g/dL [facility] Sodium 134 (L) 136 - 145 mmol/L [facility] CO2 27 20 - 36 mmol/L [facility] Chloride 101 99 - 111 mmol/L [facility] Specimen Blood specimen (specimen) Performing Organization Address City/[facility] Phone Number [facility] [address] [place] [phone] [facility] * CBC And Differential (05/23/2012 3:45 PM CDT) WBC 6.0 4.8 - 10.8 10 3/cumm [facility] RBC 4.48 (L) 4.50 - 5.90 10 [facility] 6/cumm Hemoglobin 13.7 13.5 - 17.5 g/dL [facility] Hematocrit 40.0 40.0 - 52.0 % [facility] MCV 89.2 80.0 - 100.0 fL [facility] MCH 30.6 26.0 - 34.0 pg [facility] MCHC 34.3 31.0 - 37.0 g/dL [facility] RDW 13.0 10.0 - 14.8 % [facility] Platelets 204 147 - 412 10 3/cumm [facility] MPV 9.2 6.8 - 10.0 fL [facility] Neutrophils % 50.7 40.0 - 75.0 % [facility] Lymphocytes % 39.0 22.0 - 49.0 % [facility] Monocytes % 7.8 2.0 - 9.0 % [facility] Eosinophils % 1.9 0.0 - 5.0 % [facility] Basophils % 0.6 0.0 - 2.5 % [facility] Specimen Blood specimen (specimen) Performing Organization Address City/[facility] Phone Number [facility] [address] [place] [phone] [facility] * Bedside Glucose - NURSE (05/23/2012 3:44 PM CDT) Bedside Glucose 476 (H) 74 - 106 mg/dL [facility] - Nurse Comment: Notified Nurse Notified Dr. Menezes Performing Organization Address City/State/Zipcode Phone Number [facility] [address] [place] [address] [facility] documented in this encounter Visit Diagnoses Diagnosis DM (diabetes mellitus), type 2, uncontrolled (HCC) Type II or unspecified type diabetes mellitus without mention of complication, uncontrolled Hyperglycemia Other abnormal glucose documented in this encounter Administered Medications Action Date Dose Rate Site Medication Order MAR Action 05/23/2012 5:51 PM CDT 1,000 mLs 500 mL/hr sodium chloride 0.9 % bolus 1,000 mL New Bag STAT, 1,000 mL BOLUS, Intravenous, Administer over 2 Hours, 05/23/12 at 1800, For 1 dose documented in this encounter
--- OUTSIDE RECORDS SUMMARY | 2019-05-25 03:22 | XMS REPORT | Encounter Summary ---
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 Role Phone Ramsey Valladares MD PCP Encounter Details Care Team Description Date Type Department Historical, Zeny ProviderMD [address] [place] [address] 08/06/2012 NextGen HISTORICAL CONVERSION Encounter Social History Date [...] Comments Procedure Name Priority Date/Time Associated Diagnosis LVEF ECHO Routine 08/06/2012 US CAROTID DOPPLER Routine 08/06/2012 ECHOCARDIOGRAM Routine 08/06/2012 MRI HEAD Routine 08/05/2012 documented in this encounter Results * LVEF ECHO (08/06/2012) LVEF Echo 60Comment: Updated from [facility] Next[facility] History Specimen Performing Organization Address City/State/Zipcode Phone Number [facility] [address] [place] [address] * ECHOCARDIOGRAM (08/06/2012) Comment: Updated from [facility] ECHOCARDIOGRAM History Specimen Performing Organization Address City/State/Zipcode Phone Number [facility] [address] [place] [address] * US CAROTID DOPPLER (08/06/2012) US Carotid Comment: Updated from [facility] Doppler History Specimen Performing Organization Address City/State/Zipcode Phone Number [facility] [address] [address] * MRI HEAD (08/05/2012) MRI Head Comment: Updated from [facility] History Specimen Performing Organization Address City/State/Zipcode Phone Number [facility] [address] [address] documented in this encounter Visit Diagnoses Not on filedocumented in this encounter
--- OUTSIDE RECORDS SUMMARY | 2019-05-25 03:23 | XMS REPORT | Encounter Summary ---
Author Author Formerly Named [facility] Address Unknown Phone Unavailable Care Team Providers Care Pit Hand Name Role Phone Ramsey Valladares MD PCP Encounter Details Care Team Description Date Type Department Ramsey Valladares MD [address] [place] [address] 03/30/2012 Orders Only JOR[place], [place] Social History Date Tobacco Use Types Packs/Day [...] Comments Procedure Name Priority Date/Time Associated Diagnosis LIPID PANEL Routine 03/30/2012 11:40 AM CDT documented in this encounter Results * Lipid panel (03/30/2012 11:40 AM CDT) Cholesterol 158 0 - 200 mg/dL [facility] Triglycerides 137 0 - 149 mg/dL [facility] HDL 35 (L) 40 - 90 mg/dL [facility] LDL Cholesterol 96 0 - 99 mg/dL [facility] Non-HDL 123 0 - 129 mg/dL [facility] Cholesterol Specimen Performing Organization Address City/State/Zipcode Phone Number [facility] [address] [place], [place] [phone] [facility] documented in this encounter Visit Diagnoses Not on filedocumented in this encounter
--- OUTSIDE RECORDS SUMMARY | 2019-05-25 03:23 | XMS REPORT | Encounter Summary ---
Author Author [facility] Organization [facility] Address Unknown Phone Unavailable Care Team Providers Care Jai Alai Player Name Role Phone Ramsey Valladares MD PCP Encounter Details Care Team Description Date Type Department Ramsey Valladares MD [address] [place] [address] [phone] 03/30/2012 [facility] HISTORICAL CONVERSION Social History Date [...] Progress Notes * Ramsey Valladares MD - 04/08/2012 7:48 AM CDT [facility] Internal Medicine Paul Peters April 07, 2012 PCP: Ramsey Valladares MD Pain Assessment: The patient is not in pain. (Pain scale used: Mankowski) Scheduled Follow-up History of Present Illness This 61 Years 4 Months old male smoker presents today for a [facility] scheduled follow-up appointment. PROBLEM LIST: 1. Diabetes mellitus 250.00 2. Hyperlipidemia 272.4 3. CVA (cerebral infarction) 434.91 4. 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 Problem situation relating to social and personal history V69.8 6. Bipolar Disorder 7. Polysubstance Abuse He is in for follow-up today and the patient was to have arranged for a friend t o help him with medication administration for a fee but that has apparently fall en through and so he has not been on his medications. He wanted me to give him a prescription for his Seroquel but I reminded him that that is prescribed by his mental health provider and he should contact them about refilling it. He did go to the [facility], I think that was scheduled at his discharge from the [facility]. He wants a talking glucometer and I believe it is a resonable request to ac comodate him due to his visul impairment. 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 There is a past medical history of: , Hypertension, Stroke, Diabetes Mellitus type II with unspecified complications , Mixed Hypercholesterolemia. 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 Current Medications Brand Name Generic Name Dose Sig Code Glyburide Glyburide 5 Mg take 1 tablet (5MG) by oral route every day with shannan kfast Seroquel Xr Quetiapine Fumarate 200 Mg take 1 Tablet (200MG) by ORAL route fioan ry day in the evening without food or with a light meal Trazodone Hcl Trazodone Hcl 50 Mg take 0.5 tablet (25MG) by ORAL route as need ed for sleep Atorvastatin Calcium Atorvastatin Calcium 20 Mg take 1 tablet (20MG) by oral ro apache every day Seroquel Quetiapine Fumarate 400 Mg [...] Reaction Haldol Haloperidol Lactate Psychotic Reaction Haldol Social History The patient is . The patient smokes about a pack per day. He uses [employer] on a daily basis. Do you have any reason to suspect abuse or neglect in the home? No. Review of Systems The review of systems was negative in the following areas: Constitutional, Eyes, Ears, Nose, Throat, Cardiac, Respiratory, Genitourinary, G astrointestional, Immunological, Musculoskeletal, Breast, Integumentary, Neurolo gical, Psychiatric, Endocrine, Hematologic and Lymphatic, Vascular, Male Reprodu ctive. Physical Exam Vital Signs BP: 98/74 left arm seated Last height: 70 inches / 177.8 cm Weight: 185.3 lbs / 84.05 kg BMI: 26.63 kg/m2 Constitutional This is a well developed, well nourished male appearing his stat ed age, in no apparent distress. Head The head is normocephalic and atraumatic. Eyes The pupils are equally round, reactive to light and accommodation. The ocular f undi appear normal without vessel changes, hemorrhages, or exudates. The optic disks are sharp. Ears The external ears are symmetric and without lesion. The external auditory canal s and tympanic membranes are normal. Hearing is grossly intact. Nasopharynx / Oropharynx The nasopharynx and oropharynx are without lesion or mass. Tongue is midline, t here is no tonsillar hypertrophy or enlargement of Waldeyer's ring. Neck The neck is supple with normal range of motion. There is no thyromegaly, tender ness or mass. The carotid upstrokes are normal and there are no bruits. Chest (lungs) Respiratory effort is normal without the use of accessory muscles. Percussion i s normal without hyperresonance or dullness. Auscultation is clear in all lung roach without wheezes, crackles, or rubs. CV (heart) The cardiac exam is regular, S1 and S2 sound normal and no significant murmurs o r gallops are heard. Vascular Radial, femoral, dorsalis pedis, and posterior tibialis pulses are intact and sy mmetric. GI (abdomen) The abdomen is soft and nontender. There is no palpable mass, hepatomegaly, or splenomegaly. A hernia is not identified. The abdominal aorta is not enlarged or pulsatile and there is no bruit. Lymph There is no anterior cervical, posterior cervical, supraclavicular, axillary, or inguinal lymphadenopathy. Extremities The arms and legs are normal. There is no edema, varicosity, cyanosis or clubbi ng. Skin The skin exam is clear, no lesions, or masses are noted. He is clean and appropriatley dressed today and is exhibiting normal mental func tioning. No signs of impairment. 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 Problem situation relating to social and personal history V69.8 His social situation is the main problem and he is awre of that. I am hoping valentine t at some point soon he will come to the realization that getting NH care is in his best interest. CVA (cerebral infarction) 434.91 Cortical blindness and disabled due to this. 1. Advised him to reconsider a NH. He is not inclinded to do that, says he value s his freedom too much 2. He is to continue to see if he could hire someone to help him 3. I did not see a need to change the medication regimen 4. I wrote him a prescription for a glucometer with audible cues due to his visi on impairment 5. See in 4 months, check labs then electronically signed Ramsey Valladares MD * Ramsey Valladares MD - 04/08/2012 7:47 AM CDT [facility] [address] [place] [address] [place] [address] Summary of Today's Encounter April 07, 2012 Paul Peters [address] [place] [address]- _ Today's Assessments Diabetes mellitus (250.00) His last A1C was good at 7.4% . Problem situation relating to social and personal history (V69.8) His social situation is the main problem and he is awre of that. I am hoping valentine t at some point soon he will come to the realization that getting NH care is in his best interest. CVA (cerebral infarction) (434.91) Cortical blindness and disabled due to this. Chronic Conditions Diabetes mellitus Hyperlipidemia CVA (cerebral infarction) Cortical blindness Problem situation relating to social and personal history Today's Vital Signs BP: 98/74 left arm seated Last height: 70 inches / 177.8 cm Weight: 185.3 lbs / 84.05 kg BMI: 26.63 kg/m2 Plan 1. Advised him to reconsider a NH. He is not inclinded to do that, says he value s his freedom too much 2. He is to continue to see if he could hire someone to help him 3. I did not see a need to change the medication regimen 4. I wrote him a prescription for a glucometer with audible cues due to his visi on impairment 5. See in 4 months, check labs then Follow-up Your Current Medications Brand Name Generic Name [...] take 1 tablet (20MG) by oral ro apache every day Seroquel Quetiapine Fumarate 400 Mg [...] Reaction Haldol Haloperidol Lactate Psychotic Reaction Haldol Current Lab Results Ramsey Valladares MD 04/08/2012 7:47 AM * Ramsey Valladares MD - 04/07/2012 11:30 AM CDT [facility] Note for Office Visit April 07, 2012 Patient: Paul Peters Provider: Ramsey Valladares MD : 1950 C-O PCP: Ramsey Valladares MD Age: 61 Years 4 Months Pain Assessment: The patient is not in pain. (Pain scale used: Mankowski) Do you have any reason to suspect abuse or neglect in the home? No. Diabetic patient Nursing Comments: The patient is here for a routine follow-up appointment. Pat ient states he has not been taking any of his medications. Patient states he nee ds someone to help him because he is blind, and is unable to take his medicatios due to that. Vital Signs BP: 98/74 left arm seated Last height: 70 inches / 177.8 cm Weight: 185.3 lbs / 84.05 kg BMI: 26.63 kg/m2 Medications *Medications were reviewed today Brand Name Generic Name Dose Sig Code Glyburide Glyburide 5 Mg take 1 tablet [...] take 1 tablet (20MG) by oral ro apache every day Seroquel Quetiapine Fumarate 400 Mg take 3 Tablet (1200MG) by ORAL route every day Lisinopril Lisinopril 40 Mg One po daily ( not taking ) Metformin Hcl Er Metformin Hcl 500 Mg Two po twice daily 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 dx: 250.00 Allergies *Allergies were reviewed today Allergy Reaction Comment Haloperidol Psychotic Reaction Haldol Haloperidol Lactate Psychotic Reaction Haldol Social History The patient is . The patient smokes about a pack per day. He uses [employer] on a daily basis. Do you have any reason to suspect abuse or neglect in the home? No. Date of last: Last Pneumonia vaccine (PPV) 06/25/2009. Last Influenza vaccine was on 10/13/2008. Last adult Tetanus vaccine on 06/25/2009 was Td. Documented by: Cady Franks PCT * Renetta, Zeny Busby MD - 04/05/2012 4:09 PM CDT [facility] Note April 05, 2012 Patient: Paul Peters : 1950 C-O PCP: Last [facility] visit: 04/05/2012 Current Medications Brand Name Generic Name Dose Sig Code Glyburide Glyburide 5 Mg take 1 tablet [...] take 1 tablet (20MG) by oral ro apache every day Seroquel Quetiapine Fumarate 400 Mg [...] Reaction Haldol Haloperidol Lactate Psychotic Reaction Haldol Pt here for assessment and planning, recently discharged from hospital on 03-24 f or Suicidal Ideations. Pt denies intent to harm self at this time. Pt has signif [facility] medical hx: CVA 2010, Blindness, Bipolar, Drug abuse, Smoker- 1ppd since a ge 15, High lipids. Pt states since discharge from hospital in March has not been testing BG or taking DM medications. Dr. Valladares office called to clarify which D M medications pt is to continue taking and which to discontinue. Will also disc uss resources available to pt, given information on [employer]. Pt states alfonso s not tested BG in 1 yr- noncompliant. Also given information on [employer]-m ail order to see if pt would be able to purchase Prodigy SBGM( talking meter) to assist with visual deficit. Verbalizes at this time he lives in apartment alone, friend with him at this appt. Friend instructed on use of Contour SBGM so pt can test BG daily until Prodigy Talking Meter available if qualifies. Friend of pt correctly verbalized understanding of use for Contour SBGM. Reviewed targets for fasting BG, before meal BG and 2hrs after meal BG results with pt and carolina aguirre At times during appt, pt appears irritated, states has no interest in followi ng diet recommendations for DM. Will follow-up with Dr. Valladares's office paulin g plan of care for pt. Offered session 1 for pt education regarding DM managemen t or 1:1 session with lining cementer due to visual deficit. Will follow-up as needed. Completed by: Britney Quan RN [facility] T * Zeny Jackson MD - 04/05/2012 3:55 PM T [facility] Interdisciplinary Patient & Family Education Record Patient: Paul Peters : 1950 C-O Intital learning Assessment started on: 04/05/2012 Are there any culture/anglican practices that may affect/impact the patient's h ealthcare education? No Preferred Learning Methods: [X] Demonstration [X] Explanation [X] Handout [X] Visual Barriers to Learning: [X] Vision Financial Constraints: [X] Yes/Explain: Potential learning Needs: [X] Diagnosis Related (Acute and/or Chronic) Type 2 diabetes, uncontrolled ( 250.02) Exercise program in place? No Include in Teaching: friend Completed by: Britney Quan RN on 04/05/2012 at 3:54 PM. Date Dept RTL Learner [facility] Education Provided Signature 04/05/2012 FRANCISCA W Pt + FM EHD 1 Assessment and Planning- SBGM Instruction in use of- [facility] Contour-instructed pt to test BG daily ( 60 min 1:1) Britney sanz RN T * Zeny Jackson MD - 04/05/2012 3:52 PM T [facility] Medicare Plan of Care April 05, 2012 Ramsey Valladares MD [address] [place] [address] RE: Medicare Required Confirmation of Plan of Care and Goals for Self-Managemen t Education _ Dear Dr. Valladares, We are forwarding the plan of care for Paul Peters, (: 950). Following your order for outpatient Diabetes Self Management Education, a n assessment was done on 04/05/2012. This person and their Vacuum Tester Cans in tend that their Diabetes Self-Management Education include 5 sessions, covering: Understanding Diabetes - Diagnosis to Treatment, Healthy Eating for Diabetes, Factors Affecting Blood Glucose, Reducing Your Risks, Face the Fats 1:1 educat ion due to vision deficit.. The education will be planned for a duration of 3 months. Follow-up is recomme nded in one year. Please sign and date your agreement or changes to this plan of care and task ana luisa k to the [facility] or fax it to , or mail it to us at [phone], [place] [address]. Thank you for this referral to the [facility], Provider's Response Below Comments or Changes [ ] I agree with the outlined plan of care. X Date: 03/2012 Ramsey Valladares MD / completed by: Britney Quan RN T * Zeny Jackson MD - 04/05/2012 3:51 PM CDT [facility] Basic Self-Management Program Patient: Paul Peters : 1950 C-O Assess Need Plan Evaluate Understanding Pre-Diabetes - Diagnosis to Treatment 1. Define pre-diabetes and insulin resistance. 2. Describe when to monitor blood glucose and recommended target ranges. 3. State the effect of exercise on blood glucose levels. 4. Describe an exercise plan, including an appropriate amount and type(s). 5. Identify personal barriers and supports for healthy eating and exercise. Session 1 Understanding Diabetes - Diagnosis to Treatment I 6. Define diabetes and insulin resistance. I 7. Identify your type of diabetes. I 8. Describe when to monitor blood glucose and recommended target ranges. I 9. Define the A1C test and target goal. I 10. Identify the importance of diet, exercise and medication as treatments f or diabetes. I 11. State the effect of your diabetes medication(s). I 12. Describe an exercise plan, including appropriate amount and type(s). I 13. State a strategy for coping with the emotional aspects of having diabete s. Session 2 Healthy Eating for Diabetes I 14. Describe the effect of food on blood glucose. I 15. Identify the nutrients in the foods you commonly eat. I 16. State that all foods, including sugar and sweets, can be part of a [facility] meal plan. I 17. Describe how timing and portion of food impact blood glucose. I 18. Describe at least one way to visually assess portion sizes of foods. I 19. Describe one diet strategy you can use to improve blood glucose. I 20. Use a food label to decide how the food fits into a meal plan. I 21. Describe the difference between caloric and non-caloric sweeteners. I 22. Understand the meaning of the terms "no sugar added" and "sugar free". I 23. State the effect of alcohol on blood glucose. Session 3 Factors Affecting Blood Glucose I 24. Define hypoglycemia and list two causes. I 25. Describe symptoms of hypoglycemia and an appropriate plan for treatment. I 26. Define hyperglycemia and list two causes. I 27. Describe symptoms of high blood glucose levels. I 28. Describe actions that will help lower blood glucose. I 29. State action plan to manage diabetes on sick days, including when to con tact physician. I 30. Use a monitoring record to identify patterns in blood glucose readings, potential causes and options for solutions. I 31. Identify your personal support network, the type of support you need, an d how you will obtain this support. I 32. Set an action plan to help you achieve your short-term and long-term guido betes self- management goals. Session 4 Reducing Your Risks I 33. Describe the relationship of blood glucose levels to long-term complicat ions of diabetes I 34. Define the ABC's of diabetes. I 35. Identify screening needed for each of the long-term complications and th e recommended schedule for each screening. I 36. State that heart disease and stroke risk are primary complications of di abetes. I 37. Identify risk factors, other than blood glucose levels, for each of the long-term complications. I 38. Describe your personal fears and concerns about the long-term complicati ons. I 39. State the need for ongoing diabetes education and the action plan for ac cessing resources for making lifestyle behavior changes. Face the Fats (and sodium) I 40. State how dietary fats affect blood lipids. I 41. Identify the fats in foods you commonly eat. I 42. Identify one diet strategy to improve blood lipids. I 43. State the recommended daily sodium allowance. I 44. Identify foods high in sodium. I 45. Identify a diet strategy to lower sodium intake. On the Road to Better Managing Your Diabetes (Follow-up Class) 46. Review the importance of diet, exercise, and medication as treatments for diabetes. 47. Define the ABC's of diabetes. 48. Describe how you are monitoring your blood glucose levels and using the information for decision making. 49. Identify personal barriers and support for making changes in your food ch oices. 50. Identify a situation you find challenging when making food choices and on e or more strategies for dealing with it. 51. State two reasons why blood glucose levels may be higher or lower than us ual. 52. Identify one action/step towards reaching a personal goal. Basic and Advanced Carbohydrate Counting 53. State that carbohydrates (carbs) determine food related insulin needs. 54. Describe food groups containing carbohydrates. 55. Describe two ways of assessing food portions. 56. Read a food label to find the serving size and carb content. 57. Describe one advantage of using a carb/insulin ratio versus a set carb me al plan. 58. Correctly demonstrate how to figure a food insulin dose using a carb/insu padma ratio. 59. State resources available for locating carbohydrate amounts. 60. Describe the effect of a high protein and high fat meal on blood glucose. 61. Describe how to adjust insulin dose when eating a high protein/high fat m eal. 62. Describe use of insulin for snacks. 63. Demonstrate when an adjustment in the carb/insulin ratio is needed and ho w to make the change. Injectible Medication (Byetta & Smylin) Therapy 64. Describe how Byetta/Symlin work to improve blood glucose levels. 65. State that Byetta & Symlin are not insulin. 66. State the appropriate schedule for injecting Byetta/Symlin. 67. Demonstrate appropriate pen use. 68. Describe appropriate storage and handling. 69. List nausea as a possible side effect and strategies to minimize this eff ect. 70. Describe appropriate injection sites and rotation. Insulin Therapy 71. Identify personal feelings, barriers and benefits of insulin therapy. 72. Define the role of insulin for treating type 1 diabetes. 73. Define the purpose of insulin for treating type 2 diabetes. 74. Name the insulin(s) you are taking and describe their action. 75. Describe appropriate injection sites and rotation. 76. State proper storage and handling. 77. Describe appropriate use of injection device. 78. State appropriate guidelines for adjusting basal insulin dose. 79. State appropriate guidelines for adjusting rapid acting insulin dose (or carb/insulin ratio). 80. Use a monitoring record to identify patterns in blood glucose readings, potential causes and options for solutions. 81. Identify when changes in insulin doses are needed for exercise and descri be an appropriate plan for making changes. Managing Blood Sugar Emergencies 82. Describe severe hypoglycemia and an appropriate treatment plan for it. 83. Define Glucagon, when to use it and how to inject it. 84. Define diabetic ketoacidosis (DKA) and likely causes. 85. Describe signs and symptoms of DKA. 86. Describe an appropriate sick day management plan. 87. Describe ketones and explain when to test and how to treat. 88. Describe guidelines for when to contact healthcare provider. Insulin Pump Therapy 89. State personal goals for insulin pump therapy. 90. Describe the discipline and effort needed for insulin pump therapy. 91. Explain insulin delivery using a pump. 92. Demonstrate ability to use basic features of an insulin pump. 93. Demonstrate ability to use advanced features of an insulin pump. 94. Describe back-up plan when disconnected from the pump. 95. List supplies needed for emergency kit. 96. Describe appropriate site rotation plan. 97. Describe signs of skin infection and/or irritation at insertion site. 98. Describe appropriate action for treating hyperglycemia. 99. Describe appropriate action for treating hypoglycemia. 100. Describe how to contact pump company for assistance and support. Advanced Pumping Skills 101. Describe usage of advanced insulin pump features for bolus and basal opt ions. 102. Review how to determine and evaluate insulin pump settings for carb-to-i nsulin ratios, insulin sensitivity factors, insulin on board and basal rates. 103. Discuss possible insulin adjustments and requirements when temporarily disconnecting from pump. Preconception Counseling 104. State that blood glucose control has an effect on the outcome of pregnan cy. 105. Identify the recommended time frame for having blood glucose levels in 6 % (or lower) A1C range prior to conception. 106. Verbalize the need for increased frequency of monitoring blood glucose d uring . 107. List tests for diabetes complications recommended prior to . 108. State that during normal blood glucose values will be lower th an when not . 109. State control methods available for your use. Last updated by: Britney Quan RN on 04/05/[address] [facility] Documents at 04/13/2013 4:26 AM CD T * Ramsey Valladares MD - 04/05/2012 3:42 PM CDT [facility] Phone Note April 05, 2012 Patient: Paul Peters Provider: Ramsey Valladares MD : 1950 C-O PCP: Ramsey Valladares MD Pharmacy: [id number] Work Phone: Pharmacy: [facility] phone: Last PE: 07/03/2010 Time of call: 04/05/2012 3:40 PM Last Lipids: 03/30/2012 Last TSH: 07/03/2010 Caller: aniya Reason for call: Clarification on medication Pain Assessment: Pain assessment is not applicable. Message: asking what dm meds pt should be taking? the dc orders say to stop me tformin and cont. glyburide. [phone] Call received by: Katherin Martinez LPN. Active [...] take 1 tablet (20MG) by oral ro apache every day Seroquel Quetiapine Fumarate 400 Mg [...] Haloperidol Lactate Psychotic Reaction Haldol Physician Disposition: He should be on both. The discharge summaries have beco me quite confusing in this regard. Recorded by: Ramsey Valladares MD Written order, Ramsey Valladares MD First Attempt: Katherin Jimenez Michelle VALENTE 04/05/2012 4:55 PM (Left message on [employer] machine to call back.) * Ramsey Valladares MD - 04/04/2012 9:56 AM CDT [facility] [address] [place] [address] April 04, 2012 Paul Peters [address] [place] [address]- _ Dear Mr. Peters, This is a report of your recent testing. The more information that you have the better you will be able to maintain your health. If you have any questions abo ut your results please call the office at the number above. Your chemistry profile, including electrolytes, blood sugar, kidney and liver fu nction was ok, except elevated glucose. The total cholesterol should normally be less than 200 mg/dL. Yours was 158 mg/ dL. HDL cholesterol is considered to be your "good" cholesterol. It is recommended that your HDL be above 45 mg/dL, and higher is better. Your HDL was 35 mg/dL. The LDL cholesterol is considered t he "bad" cholesterol. The goal is to keep your LDL less than 100. If you have heart disease or diabetes the goal can be less than 70. Your LDL was 96. Your triglycerides were 137 with a target below 150. These lipid values are ok. Your A1C is a measure of your average blood sugar control over the last couple o f months. In diabetes the goal is to keep it under 7.0%. The normal range with out diabetes is 4.0-6.0%. Your A1C was 7.4 % which is ok. Thank you, Ramsey Valladares MD * Ramsey Valladares MD - 04/04/2012 9:56 AM CDT [facility] Results April 04, 2012 Name: Paul Peters Provider: Ramsey Valladares MD : 1950 C-O PCP: Ramsey Valladares MD Pharmacy: [place] [id number] Work Phone: Pharmacy: Date Reviewed: 04/04/2012 Laboratory Results: Regarding: Comprehensive panel Results: ok, except elevated glucose Regarding: FLP: TC (158 mg/dL), HDL (35 mg/dL), LDL (96 mg/dL), TG (137 mg/dL) Results: ok Regarding: A1C (7.4 %) Results: ok Medications Brand Name Generic Name Dose Sig Code Glyburide Glyburide 5 Mg take 1 tablet [...] take 1 tablet (20MG) by oral ro apache every day Seroquel Quetiapine Fumarate 400 Mg [...] Reaction Haldol Haloperidol Lactate Psychotic Reaction Haldol Recorded by: Cady Fransk PCT Written order, Ramsey Valladares MD Notification: Patient notified of the results by mail Notification completed: Cady WHITLOCK 04/04/2012 9:55 AM * Ramsey Valladares MD - 04/01/2012 1:56 PM CDT [facility] Internal Medicine Paul Peters March 30, 2012 PCP: Ramsey Valladares MD Pain Assessment: The patient is not in pain. (Pain scale used: Mankowski) Scheduled Follow-up History of Present Illness This 61 Years 3 Months old male smoker presents today for a [facility] scheduled follow-up appointment. He has been lost to followup. Apparently he was in a [facility] but says he "escaped." Gayla stein tells me he didnot like the rules and had lost his freedom and so he left. he was [place] police and taken to an he was admitted there. He i s now discharged and is heree for followup. He has major socail problems since gayla stein is unable to work, is blind and has a history of polysubsubstance abuseand bip olar disorder. 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 There is a past medical history of: , Hypertension, Stroke, Diabetes Mellitus type II with unspecified complications , Mixed Hypercholesterolemia. 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 The patient smokes about a pack per day. He uses [employer] on a daily basis. Do you have any reason to suspect abuse or neglect in the home? No. Review of Systems The review of systems was negative in the following areas: Constitutional, Eyes, Ears, Nose, Throat, Cardiac, Respiratory, Genitourinary, G astrointestional, Immunological, Musculoskeletal, Breast, Integumentary, Neurolo gical, Psychiatric, Endocrine, Hematologic and Lymphatic, Vascular, Male Reprodu ctive. Physical Exam Vital Signs BP: 126/74 right arm seated Height: 70 inches / 177.8 cm Weight: 185.5 lbs / 84.14 kg BMI: 26.66 kg/m2 Constitutional This is a well developed, well nourished male appearing his stat ed age, in no apparent distress. Head The head is normocephalic and atraumatic. Eyes The pupils are equally round, reactive to light and accommodation. The ocular f undi appear normal without vessel changes, hemorrhages, or exudates. The optic disks are sharp. Ears The external ears are symmetric and without lesion. The external auditory canal s and tympanic membranes are normal. Hearing is grossly intact. Nasopharynx / Oropharynx The nasopharynx and oropharynx are without lesion or mass. Tongue is midline, t here is no tonsillar hypertrophy or enlargement of Waldeyer's ring. Neck The neck is supple with normal range of motion. There is no thyromegaly, tender ness or mass. The carotid upstrokes are normal and there are no bruits. Chest (lungs) Respiratory effort is normal without the use of accessory muscles. Percussion i s normal without hyperresonance or dullness. Auscultation is clear in all lung roach without wheezes, crackles, or rubs. CV (heart) The cardiac exam is regular, S1 and S2 sound normal and no significant murmurs o r gallops are heard. Vascular Radial, femoral, dorsalis pedis, and posterior tibialis pulses are intact and sy mmetric. GI (abdomen) The abdomen is soft and nontender. There is no palpable mass, hepatomegaly, or splenomegaly. A hernia is not identified. The abdominal aorta is not enlarged or pulsatile and there is no bruit. Lymph There is no anterior cervical, posterior cervical, supraclavicular, axillary, or inguinal lymphadenopathy. Extremities The arms and legs are normal. There is no edema, varicosity, cyanosis or clubbi ng. Skin The skin exam is clear, no lesions, or masses are noted. 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 He is aware of the fact that he cannot care for himself adequately at this time. He thinks his friend who drove him here will accept $100 per week to help him with his medications and other ADL. I will update his labs to see where we are at. I expalined to him that he has missed multiple appointments and we cannot contin ue to see him if he continues in that way. I will see him again in 1 week to dis cuss his lab results since he does not have a telephone at this time. Lab: Panels Lipid panel Chemistry A1C New Medications or Refills Brand Name Dose Sig Code Quantity Refills Samples Atorvastatin Calcium 20 Mg take 1 tablet (20MG) by oral route every day 0 N Seroquel Xr 200 Mg take 1 Tablet (200MG) by ORAL route every day in the evenin g without food or with a light meal 0 N Trazodone Hcl 50 Mg take 0.5 tablet (25MG) by ORAL route as needed for sleep 0 N Glyburide 5 Mg take 1 tablet (5MG) by oral route every day with breakfast 0 N electronically signed Ramsey Valladares MD * Ramsey Valladares MD - 04/01/2012 1:55 PM CDT [facility] [address] [place] [address] Summary of Today's Encounter March 30, 2012 Paul Aroldo Lorraine [address] [place] [address]- _ Today's Assessments Problem situation relating to social and personal history (V69.8) CVA (cerebral infarction) (434.91) Diabetes mellitus (250.00) Chronic Conditions Diabetes mellitus Hyperlipidemia CVA (cerebral infarction) Cortical blindness Problem situation relating to social and personal history Today's Vital Signs BP: 126/74 right arm seated Height: 70 inches / 177.8 cm Weight: 185.5 lbs / 84.14 kg BMI: 26.66 kg/m2 Plan I talked to him extensively about reconsidering his decision to leave the NH. He is aware of the fact that he cannot care for himself adequately at this time. He thinks his friend who drove him here will accept $100 per week to help him with his medications and other ADL. I will update his labs to see where we are at. I expalined to him that he has missed multiple appointments and we cannot contin ue to see him if he continues in that way. I will see him again in 1 week to dis cuss his lab results since he does not have a telephone at this time. Lab Panels Lipid panel Chemistry A1C Follow-up Your Current Medications Brand Name Generic Name [...] take 1 tablet (20MG) by oral ro apache every day Seroquel Quetiapine Fumarate 400 Mg take 3 Tablet (1200MG) by ORAL route every day Lisinopril Lisinopril 40 Mg One po daily ( not taking ) Metformin Hcl Er Metformin Hcl 500 Mg Two po twice daily 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 dx: 250.00 New Medication or Refills Today - Don't Forget to Fill Your Prescription if You Got One Brand Name Dose Sig Code Quantity Refills Samples Atorvastatin Calcium 20 Mg take 1 tablet (20MG) by oral route every day 0 N Seroquel Xr 200 Mg take 1 Tablet (200MG) by ORAL route every day in the evenin g without food or with a light meal 0 N Trazodone Hcl 50 Mg take 0.5 tablet (25MG) by ORAL route as needed for sleep 0 N Glyburide 5 Mg take 1 tablet (5MG) by oral route every day with breakfast 0 N Allergies Allergen Reaction Comment Haloperidol Psychotic Reaction Haldol Haloperidol Lactate Psychotic Reaction Haldol Current Lab Results Estimated GFR: 03/30/2012 11:40 Description Result Units Range Flags eGFR- >59 ml/min >59 [id number] American >59 ml/min >59 Comments: rMKE-Lzo-Szucwyd American: Chronic Kidney Disease is defined as either kidney da mage or a GFR less than 60ml/min that persists for at least 3 months. Stage 3=30-59 ml/min Stage 4=15-29 ml/min Stage 5=<15 ml/min *Patient result is normalized to ml/min/1.73 square meters of body surface area. Lipid Panel: 03/30/2012 11:40 Description Result Units Range Flags Triglyceride 137 mg/dL 0-149 Cholesterol 158 mg/dL 0-200 HDL Cholesterol 35 mg/dL 40-90 L Low Density Lipoprotein 96 mg/dL 0-99 Non-HDL Cholesterol 123 mg/dL 0-129 Comprehensive Metabolic Panel: 03/30/2012 11:40 Description Result Units Range Flags Sodium 140 mmol/L 136-145 Potassium 4.0 mmol/L 3.6-4.9 Chloride 105 mmol/L 99-111 Carbon Dioxide 31 mmol/L 20-36 BUN 14 mg/dL 6-20 Creatinine 1.0 mg/dL 0.6-1.2 Glucose 231 mg/dL 74-106 H Calcium 9.4 mg/dL 8.7-10.5 Bilirubin,Total 0.7 mg/dL 0.3-1.2 Alkaline Phosphatase 113 U/L 29-122 AST 18 U/L 16-37 ALT 15 U/L 10-46 Protein 7.6 g/dL 6.4-8.3 Albumin 4.5 g/dL 3.4-4.8 A1C: 03/30/2012 11:40 Description Result Units Range Flags A1C 7.4 % 4.0-6.0 H Comments: A1C: A1C Interpretive Guidelines: Target value=6.5% Ramsey Valladares MD 04/01/2012 1:55 PM * Ramsey Valladares MD - 03/30/2012 11:27 AM CDT [facility] Orders [place]: [address] [place], [place] [address] Patient: Paul Peters Ordering Provider: Ramsey Valladares MD 178 Address: [address] [place] [address] [place] [address]- Gender: M Date of : 1950 SSN: [id number] C-O Fasting: Yes Priority: Routine Race: Ethnicity: Not or Date Ordered: 03/30/2012 Completed by: Cady WHITLOCK Specimen Collection by Lab: Date (collected): Time (collected): By Specimen type Last recorded weight: 185.5 lbs (84.14 kg) Code Description Tube Dx Dx Panels COMP [X] Comprehensive panel (14) C 250.00 LIPID [X] Lipid panel C 250.00 Chemistry A1C [X] A1C L 250.00 Written order, Ramsey Valladares MD / completed by: Cady Franks PCT on 2011 11:27 AM * Ramsey Valladares MD - 03/30/2012 11:09 AM CDT [facility] Nursing Note for Office Visit March 30, 2012 Patient: Paul Peters Provider: Ramsey Valladares MD : 1950 C-O PCP: Ramsey Valladares MD Age: 61 Years 3 Months Pain Assessment: The patient is not in pain. (Pain scale used: Mankowski) Do you have any reason to suspect abuse or neglect in the home? No. Diabetic patient Nursing Comments: Patient is here for hospital follow up. Vital Signs BP: 126/74 right arm seated Height: 70 inches / 177.8 cm Weight: 185.5 lbs / 84.14 kg BMI: 26.66 kg/m2 Medications *Medications were reviewed today Brand Name Generic Name Dose Sig Code Seromeredith Quetiapine Fumarate 400 Mg take 3 Tablet (1200MG) by ORAL route every day Lisinopril Lisinopril 40 Mg One po daily ( not taking ) Metformin Hcl Er Metformin Hcl 500 Mg Two po twice daily 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 dx: 250.00 Allergies *Allergies were reviewed today Allergy Reaction Comment Haloperidol Psychotic Reaction Haldol Haloperidol Lactate Psychotic Reaction Haldol Social History The patient is . The patient smokes about a pack per day. He uses [employer] on a daily basis. Do you have any reason to suspect abuse or neglect in the home? No. Date of last: Last Pneumonia vaccine (PPV) 06/25/2009. Last Influenza vaccine was on 10/13/2008. Last adult Tetanus vaccine on 06/25/2009 was Td. Documented by: Cady Franks PCT Checked out by: Cady Franks PCT documented in this encounter Plan of Treatment Not on filedocumented as of this encounter Visit Diagnoses Not on filedocumented in this encounter
--- OUTSIDE RECORDS SUMMARY | 2019-05-25 03:23 | XMS REPORT | Encounter Summary ---
Author Author [facility] Organization [facility] Address Unknown Phone Unavailable Care Team Providers Care Emts Name Role Phone Ramsey Valladares MD PCP Encounter Details Care Team Description Date Type Department Ramsey Valladares MD [address] [place] [address] 03/30/2012 Orders Only JORI [place], [place] Social History Date Tobacco Use Types [...] Comments Procedure Name Priority Date/Time Associated Diagnosis COMPREHENSIVE METABOLIC Routine 03/30/2012 PANEL 11:40 AM CDT documented in this encounter Results * Comprehensive metabolic panel (03/30/2012 11:40 AM CDT) Albumin 4.5 3.4 - 4.8 g/dL [facility] Alkaline 113 29 - 122 U/L [facility] Phosphatase ALT 15 10 - 46 U/L [facility] AST 18 16 - 37 U/L [facility] Total Bilirubin 0.7 0.3 - 1.2 mg/dL [facility] BUN, Bld 14 6 - 20 mg/dL [facility] Calcium 9.4 8.7 - 10.5 mg/dL [facility] Chloride 105 99 - 111 mmol/L [facility] Creatinine 1.0 0.6 - 1.2 mg/dL [facility] Glucose 231 (H) 74 - 106 mg/dL [facility] Potassium 4.0 3.6 - 4.9 mmol/L [facility] Total Protein 7.6 6.4 - 8.3 g/dL [facility] Sodium 140 136 - 145 mmol/L [facility] CO2 31 20 - 36 mmol/L [facility] Specimen Performing Organization Address City/State/Zipcode Phone Number [facility] [address] [place] [address] [facility] documented in this encounter Visit Diagnoses Not on filedocumented in this encounter
--- OUTSIDE RECORDS SUMMARY | 2019-05-25 03:23 | XMS REPORT | Encounter Summary ---
Author Author [facility] Organization [facility] Address Unknown Phone Unavailable Care Team Providers Care Cnc Grinder Name Role Phone Ramsey Valladares MD PCP Encounter Details Care Team Description Date Type Department Ramsey Valladares MD [address] [place] [address] 03/30/2012 Orders Only JORI [place], [place] Social History Date Tobacco Use Types [...] Comments Procedure Name Priority Date/Time Associated Diagnosis HEMOGLOBIN A1C Routine 03/30/2012 11:40 AM CDT documented in this encounter Results * Hemoglobin A1c (03/30/2012 11:40 AM CDT) Hemoglobin A1C 7.4 (H) 4.0 - 6.0 % [facility] Comment: A1C Interpretive Guidelines: Target value=6.5% Specimen Performing Organization Address City/State/Zipcode Phone Number REPLACED BY [facility] [address] [place] [address] [facility] documented in this encounter Visit Diagnoses Not on filedocumented in this encounter
--- OUTSIDE RECORDS SUMMARY | 2019-05-25 03:23 | XMS REPORT | Encounter Summary ---
Author Author [facility] Organization [facility] Address Unknown Phone Unavailable Care Team Providers Care Tunnel Man Name Role Phone Ramsey Valladares MD PCP Encounter Details Care Team Description Date Type Department Historical, Zeny ProviderMD [address] [place] [address] 03/30/2012 [facility] HISTORICAL CONVERSION Encounter Social History Date Tobacco [...] Signs Reading Time Taken Comments Vital Sign 126/74 03/30/2012 10:55 AM CDT Blood Pressure - - Pulse - - Temperature - - Respiratory Rate - - Oxygen Saturation - - Inhaled Oxygen Concentration 84.1 kg (185 lb 8 oz) 03/30/2012 10:55 AM CDT Weight 177.8 cm (5' 10") 03/30/2012 10:55 AM CDT Height 26.62 03/30/2012 10:55 AM CDT Body Mass Index documented in this encounter Plan of Treatment Not on filedocumented as of this encounter Procedures Comments Procedure Name Priority Date/Time Associated Diagnosis DIABETES EDUCATION Routine 04/05/2012 documented in this encounter Results * DIABETES EDUCATION (04/05/2012) DIABETES Comment: Updated from [facility] EDUCATION History Specimen Performing Organization Address City/State/Zipcode Phone Number [facility] [address] [facility] [place] [address] documented in this encounter Visit Diagnoses Not on filedocumented in this encounter
--- OUTSIDE RECORDS SUMMARY | 2019-05-25 03:23 | XMS REPORT | Encounter Summary ---
Author Author [facility] Organization [facility] Address Unknown Phone Unavailable Care Team Providers Care Wool Grader Name Role Phone Ramsey Valladares MD PCP Encounter Details Care Team Description Date Type Department Ramsey Valladares MD [address] [place] [address] 03/30/2012 Orders Only JORI [place], [place] Social History Date Tobacco Use Types [...] Comments Procedure Name Priority Date/Time Associated Diagnosis ESTIMATED GFR Routine 03/30/2012 11:40 AM CDT documented in this encounter Results * Estimated GFR (03/30/2012 11:40 AM CDT) GFR MDRD Af >59 >59 ml/min [...] body surface area. Specimen Performing Organization Address City/State/Zipcode Phone Number [facility] [address] [place] [address] [facility] documented in this encounter Visit Diagnoses Not on filedocumented in this encounter
--- OUTSIDE RECORDS SUMMARY | 2019-05-25 03:24 | XMS REPORT | Encounter Summary ---
Author Author [facility] Organization [facility] Address Unknown Phone Unavailable Care Team Providers Care Country Singer Name Role Phone Ramsey Valladares MD PCP Encounter Details Care Team Description Date Type Department Link, Onbase 03/17/2012 [facility] HISTORICAL CONVERSION Social History Date Tobacco Use Types Packs/Day Years Used Current Every Day Smoker Drinks/Week oz/Week Comments Alcohol Use Yes Sex Assigned at Date Recorded Not on file Industry Job Start Date Occupation Not on file Not on file Not on file Travel End Travel History Travel Start No recent travel history available. documented as of this encounter Progress Notes * Link, Onbase - 04/10/2013 3:07 AM CDT T documented in this encounter Plan of Treatment Not on filedocumented as of this encounter Procedures Comments Procedure Name Priority Date/Time Associated Diagnosis HM EXTERNAL XRAY 04/26/2013 1:48 PM CDT HM EXTERNAL XRAY 04/20/2013 8:21 PM CDT documented in this encounter Results * HM EXTERNAL XRAY (04/26/2013 1:48 PM CDT) Narrative Performed At Procedure Note Historical, Transaction Wireless Documents - 04/25/2013 3:36 AM CDT * HM EXTERNAL XRAY (04/20/2013 8:21 PM CDT) Narrative Performed At A scan was deleted from the Results section by N Historical [[id number]] on 04/25/2013 at6:03 PM (File: [id number]) documented in this encounter Visit Diagnoses Not on filedocumented in this encounter
--- OUTSIDE RECORDS SUMMARY | 2019-05-25 03:24 | XMS REPORT | Encounter Summary ---
[facility] Address Unknown Phone Unavailable Care Team Providers Care Flow Floor Attendant Name Role Phone Ramsey Valladares MD PCP Encounter Details Care Team Description Date Type Department Saturnino Pepper MD 12/17/2011 [facility] - Encounter [address] 12/24/2011 [id number] [place] [address] Social History Date Tobacco Use [...] Signs Reading Time Taken Comments Vital Sign 99/61 12/24/2011 7:00 AM LATHER APPRENTICE Blood Pressure 65 12/24/2011 7:00 AM LATHER APPRENTICE Pulse 36.5 C (97.7 F) 12/23/2011 6:59 AM LATHER APPRENTICE Temperature 14 12/24/2011 7:00 AM LATHER APPRENTICE Respiratory Rate 93% 12/17/2011 6:03 PM LATHER APPRENTICE Oxygen Saturation - - Inhaled Oxygen Concentration 88.5 kg (195 lb) 12/17/2011 6:03 PM LATHER APPRENTICE Weight 180.3 cm (5' 11") 12/17/2011 6:03 PM LATHER APPRENTICE Height 27.2 12/17/2011 6:03 PM LATHER APPRENTICE Body Mass Index documented in this encounter Medications at Time of Discharge Start Date End Date Medication Sig Dispensed Refills 12/24/2011 01/23/2012 divalproex (DEPAKOTE ER) Take 3 90 tablet 0 500 MG 24 hr tablet tablets by mouth nightly for 30 days. 12/24/2011 01/23/2012 donepezil (ARICEPT) 5 MG Take 2 60 tablet 0 tablet tablets by mouth nightly for 30 days. 12/24/2011 12/26/2011 varenicline (CHANTIX) 0.5 Take 1 tablet 4 tablet 0 MG tablet by mouth 2 (two) times daily for 4 doses. 12/24/2011 01/21/2012 varenicline (CHANTIX) 1 Take 1 tablet 56 tablet 0 MG tablet by mouth 2 (two) times daily for 28 days. 05/12/2011 03/19/2012 clopidogrel (PLAVIX) 75 Take 1 tablet 30 tablet 0 MG tablet by mouth daily. 05/12/2011 03/19/2012 glyBURIDE (DIABETA) 2.5 Take 1 tablet 30 tablet 0 MG tablet by mouth daily with breakfast. 03/19/2012 guaifenesin (MUCINEX) 600 Take 600 mg 0 MG 12 hr tablet by mouth 2 (two) times daily. 05/12/2011 03/19/2012 lisinopril Take 1 tablet 30 tablet 0 (PRINIVIL,ZESTRIL) 10 MG by mouth tablet daily. 03/19/2012 lorazepam (ATIVAN) 0.5 MG Take 0.5 mg 0 tabletIndications: by mouth Anxiety every 6 (six) hours as needed. Indications: Feeling Anxious 05/12/2011 03/19/2012 metformin (GLUCOPHAGE) Take 1 tablet 60 tablet 0 500 MG tablet by mouth 2 (two) times daily with meals. 05/12/2011 03/19/2012 pravastatin (PRAVACHOL) Take 1 tablet 30 tablet 0 80 MG tablet by mouth nightly. 12/24/2011 03/19/2012 quetiapine (SEROQUEL XR) Or equivalent 270 tablet 0 50 MG TB24 05/12/2011 03/19/2012 sertraline (ZOLOFT) 50 MG Take 100 mg 0 tablet by mouth daily. 05/12/2011 03/19/2012 tamsulosin (FLOMAX) 0.4 Take 1 30 capsule 0 MG CAPS capsule by mouth daily. documented as of this encounter Plan of Treatment Date/Time Name Type Priority Associated Diagnoses 12/21/2011 9:45 PM LATHER APPRENTICE EXTERNAL LAB TEST Lab 12/24/2011 12:00 AM LATHER APPRENTICE EXTERNAL LAB TEST Lab documented as of this encounter Procedures Comments Procedure Name Priority Date/Time Associated Diagnosis BEDSIDE GLUCOSE - NURSE Routine 12/24/2011 7:02 AM LATHER APPRENTICE BEDSIDE GLUCOSE - NURSE Routine 12/23/2011 4:51 PM LATHER APPRENTICE BEDSIDE GLUCOSE - NURSE Routine 12/23/2011 5:53 AM LATHER APPRENTICE BEDSIDE GLUCOSE - NURSE Routine 12/22/2011 4:59 PM LATHER APPRENTICE BEDSIDE GLUCOSE - NURSE Routine 12/22/2011 6:39 AM LATHER APPRENTICE BEDSIDE GLUCOSE - NURSE Routine 12/21/2011 4:34 PM LATHER APPRENTICE BEDSIDE GLUCOSE - NURSE Routine 12/21/2011 6:49 AM LATHER APPRENTICE BEDSIDE GLUCOSE - NURSE Routine 12/20/2011 4:31 PM LATHER APPRENTICE BEDSIDE GLUCOSE - NURSE Routine 12/20/2011 6:31 AM LATHER APPRENTICE VALPROIC ACID LEVEL, Timed 12/19/2011 TOTAL 7:46 AM LATHER APPRENTICE ESTIMATED GFR Routine 12/17/2011 7:03 PM LATHER APPRENTICE SEDIMENTATION RATE, Routine 12/17/2011 MANUAL 7:03 PM LATHER APPRENTICE RPR Routine 12/17/2011 7:03 PM LATHER APPRENTICE CBC AND DIFFERENTIAL Routine 12/17/2011 7:03 PM LATHER APPRENTICE TSH Routine 12/17/2011 7:03 PM LATHER APPRENTICE FOLATE RBC Routine 12/17/2011 7:03 PM LATHER APPRENTICE VITAMIN B12 Routine 12/17/2011 7:03 PM LATHER APPRENTICE COMPREHENSIVE METABOLIC Routine 12/17/2011 PANEL 7:03 PM LATHER APPRENTICE URINALYSIS, REFLEX Routine 12/17/2011 CULTURE IF NEEDED 3:20 PM LATHER APPRENTICE documented in this encounter Results * Bedside Glucose - NURSE (12/24/2011 7:02 AM LATHER APPRENTICE) Bedside Glucose 89Comment: Notify Nurse 70 - 105 mg/dL [facility] - Nurse Specimen Performing Organization Address [facility] Phone Number [facility] [address] [place] [phone] [facility] * Bedside Glucose - NURSE (12/23/2011 4:51 PM LATHER APPRENTICE) Bedside Glucose 112 (H)Comment: Notify Nurse 70 - 105 mg/dL [facility] - Nurse Specimen Performing Organization Address [facility] Phone Number [facility] [address] [place] [phone] [facility] * Bedside Glucose - NURSE (12/23/2011 5:53 AM LATHER APPRENTICE) Bedside Glucose 60 (L)Comment: Notify Nurse 70 - 105 mg/dL [facility] - Nurse Specimen Performing Organization Address [facility] Phone Number [facility] [address] [place] [phone] [facility] * Bedside Glucose - NURSE (12/22/2011 4:59 PM LATHER APPRENTICE) Bedside Glucose 141 (H)Comment: Notify Nurse 70 - 105 mg/dL [facility] - Nurse Specimen Performing Organization Address [facility] Phone Number [facility] [address] [place] [phone] [facility] * Bedside Glucose - NURSE (12/22/2011 6:39 AM LATHER APPRENTICE) Bedside Glucose 120 (H) 70 - 105 mg/dL [facility] - Nurse Specimen Performing Organization Address [facility] Phone Number [facility] [address] [place] [phone] [facility] * Bedside Glucose - NURSE (12/21/2011 4:34 PM LATHER APPRENTICE) Bedside Glucose 77Comment: Notify Nurse 70 - 105 mg/dL [facility] - Nurse Specimen Performing Organization Address [facility] Cent[facility]ode Phone Number [facility] [address] [place] [phone] [facility] * Bedside Glucose - NURSE (12/21/2011 6:49 AM LATHER APPRENTICE) Bedside Glucose 127 (H)Comment: Notify Nurse 70 - 105 mg/dL [facility] - Nurse Specimen Performing Organization Address [facility] Phone Number [facility] [address] [place] [phone] [facility] * Bedside Glucose - NURSE (12/20/2011 4:31 PM LATHER APPRENTICE) Bedside Glucose 152 (H)Comment: Notify Nurse 70 - 105 mg/dL [facility] - Nurse Specimen Performing Organization Address [facility] Phone Number [facility] [address] [place] [phone] [facility] * Bedside Glucose - NURSE (12/20/2011 6:31 AM LATHER APPRENTICE) Bedside Glucose 129 (H)Comment: Notify Nurse 70 - 105 mg/dL [facility] - Nurse Specimen Performing Organization Address [facility] Phone Number [facility] [address] [place] [phone] [facility] * Valproic Acid Level, Total (12/19/2011 7:46 AM LATHER APPRENTICE) Valproic Acid 103 (H) 50 - 100 ug/mL [facility] Lvl Specimen Blood specimen (specimen) Performing Organization Address [facility] Phone Number [facility] [address] [place] [phone] [facility] * Estimated GFR (12/17/2011 7:03 PM LATHER APPRENTICE) GFR MDRD Af >59 >59 ml/min [facility] [...] body surface area. Specimen Performing Organization Address [facility] Phone Number [facility] [address] [place] [address] [facility] * Sedimentation rate, manual (12/17/2011 7:03 PM LATHER APPRENTICE) Pathologist [facility] Sed Rate 12 0 - 15 MM/HR [facility] Specimen Blood specimen (specimen) Performing Organization Address [facility] Phone Number [facility] [address] [place] [address] [facility] * CBC and differential (12/17/2011 7:03 PM LATHER APPRENTICE) Pathologist [facility] WBC 7.5 4.8 - 10.8 10 3/cumm [facility] RBC 4.10 (L) 4.50 - 5.90 10 [facility] 6/cumm Hemoglobin 12.3 (L) 13.5 - 17.5 g/dL [facility] MCV 90.7 80.0 - 100.0 fL [facility] MCH 30.0 26.0 - 34.0 pg [facility] MCHC 33.1 31.0 - 37.0 g/dL [facility] RDW 14.0 10.0 - 14.8 % [facility] Platelets 214 147 - 412 10 3/cumm [facility] MPV 8.1 6.8 - 10.0 fL [facility] Neutrophils % 52.2 40.0 - 75.0 % [facility] Lymphocytes % 31.1 22.0 - 49.0 % [facility] Monocytes % 7.1 2.0 - 9.0 % [facility] Eosinophils % 9.1 (H) 0.0 - 5.0 % [facility] Basophils % 0.5 0.0 - 2.5 % [facility] Specimen Blood specimen (specimen) Performing Organization Address [facility] Phone Number [facility] [address] [place] [address] [phone] [facility] * Folate RBC (12/17/2011 7:03 PM LATHER APPRENTICE) Pathologist [facility] Hematocrit 37.2 (L) 42.0 - 52.0 % [facility] Red Cell Folate 734 280 - 791 ng/mL [facility] Specimen Blood specimen (specimen) Performing Organization Address [facility] Phone Number [facility] [address] [place] [address] [phone] [facility] * TSH (12/17/2011 7:03 PM LATHER APPRENTICE) [facility] TSH 1.499 0.400 - 4.000 uIU/mL [facility] Specimen Blood specimen (specimen) Performing Organization Address [facility] Phone Number [facility] [address] [place] [address] [phone] [facility] * Vitamin B12 (12/17/2011 7:03 PM LATHER APPRENTICE) [facility] Vitamin B-12 633 211 - 911 pg/mL [facility] Comment: Vitamin B-12 Reference Range: Normal =211-911 pg/mL Deficient=32 -246 pg/mL Specimen Blood specimen (specimen) Performing Organization Address [facility] Phone Number [facility] [address] [place] [phone] [facility] * Comprehensive metabolic panel (12/17/2011 7:03 PM LATHER APPRENTICE) [facility] Albumin 4.1 3.4 - 4.8 g/dL [facility] Alkaline 77 29 - 122 U/L [facility] Phosphatase ALT 15 10 - 46 U/L [facility] AST 17 16 - 37 U/L [facility] Total Bilirubin <0.3 0.3 - 1.2 mg/dL [facility] BUN, Bld 19 6 - 20 mg/dL [facility] Calcium 8.5 (L) 8.7 - 10.5 mg/dL [facility] Chloride 105 99 - 111 mmol/L [facility] Creatinine 0.9 0.6 - 1.2 mg/dL [facility] Glucose 183 (H) 74 - 106 mg/dL [facility] Potassium 4.0 3.6 - 4.9 mmol/L [facility] Total Protein 7.0 6.4 - 8.3 g/dL [facility] Sodium 139 136 - 145 mmol/L [facility] CO2 29 20 - 36 mmol/L [facility] Specimen Blood specimen (specimen) Performing Organization Address [facility] Phone Number [facility] [address] [place] [phone] [facility] * RPR (12/17/2011 7:03 PM LATHER APPRENTICE) RPR NON-REACTIVE Non-Reactive [facility] Specimen Blood specimen (specimen) Performing Organization Address [facility] Phone Number [facility] [address] [place] [address] [facility] * Urinalysis, reflex culture if indicated (12/17/2011 3:20 PM LATHER APPRENTICE) Color, UA Yellow [facility] Appearance CLEAR [facility] Specific 1.025 1.003 - 1.030 [facility] Blaine, UA pH, UA 5.5 5.0 - 8.0 [facility] Protein, UA NEG NEG [facility] Glucose, UA NEG NEG [facility] Ketones, UA 1+ (A) NEG [facility] Urobilinogen, 4.0 (H) 0.0 - 1.0 EU [facility] UA Bilirubin, UA NEG NEG [facility] Hemoglobin, UA NEG NEG [facility] Leukoesterase, NEG NEG [facility] UA Nitrites, UA NEG NEG [facility] Mucous RARE [facility] WBC, UA 0-3 0 - 3 /HPF [facility] Culture Set NOT PERFORMED [facility] RBC, UA NONE 0 - 3 /HPF [facility] Specimen Urine specimen (specimen) - Urine, Clean Catch Performing Organization Address [facility] Phone Number [facility] [employer] [address] [place] [address] [facility] documented in this encounter Visit Diagnoses Diagnosis Vascular dementia (HCC) - Primary Vascular dementia, uncomplicated Bipolar affective disorder (HCC) Bipolar disorder, unspecified documented in this encounter Administered Medications Action Date Dose Rate Site Medication Order MAR Action 12/24/2011 8:33 AM LATHER APPRENTICE 75 mg clopidogrel (PLAVIX) tablet 75 mg Given 75 mg DAILY, Oral, First dose on Wed12/17/11 at 1745 75 mg Given 12/23/2011 9:06 AM LATHER APPRENTICE 75 mg Given 12/22/2011 9:45 AM LATHER APPRENTICE 12/17/2011 8:51 PM LATHER APPRENTICE 1,000 mg divalproex (DEPAKOTE ER) 24 hr tablet Given 1,000 mg 1,000 mg BEDTIME, Oral, First dose on Zuri 12/17/11 at 2100 12/23/2011 9:22 PM LATHER APPRENTICE 1,500 mg divalproex (DEPAKOTE ER) 24 hr tablet Given 1,500 mg 1,500 mg BEDTIME, Oral, First dose on Wed12/18/11 at 2100 1,500 mg Given 12/22/2011 9:19 PM LATHER APPRENTICE 1,500 mg Given 12/21/2011 9:01 PM LATHER APPRENTICE 12/23/2011 9:22 PM LATHER APPRENTICE 5 mg donepezil (ARICEPT) tablet 5 mg Given 5 mg BEDTIME, Oral, First dose on Wed12/17/11 at 2100 5 mg Given 12/22/2011 9:19 PM LATHER APPRENTICE 5 mg Given 12/21/2011 9:01 PM LATHER APPRENTICE 12/24/2011 8:33 AM LATHER APPRENTICE 1 puff fluticasone-salmeterol (ADVAIR) 250-50 Given MCG/DOSE inhaler 1 puff 1 puff EVERY 12 HOURS SCHEDULED (2 times per day), Inhalation, First dose on Wed12/17/11 at 2100 1 puff Given 12/23/2011 9:22 PM LATHER APPRENTICE 1 puff Given 12/23/2011 9:06 AM LATHER APPRENTICE 12/24/2011 8:33 AM LATHER APPRENTICE 2.5 mg glyBURIDE (DIABETA) tablet 2.5 mg Given 2.5 mg DAILY WITH BREAKFAST, Oral, First dose on Wed12/18/11 at 0800 2.5 mg Given 12/23/2011 9:05 AM LATHER APPRENTICE 2.5 mg Given 12/22/2011 9:45 AM LATHER APPRENTICE 12/24/2011 8:33 AM LATHER APPRENTICE 600 mg guaifenesin (MUCINEX) 12 hr tablet 600 Given mg 600 mg 2 TIMES DAILY, Oral, First dose on Wed12/17/11 at 2100 600 mg Given 12/23/2011 9:22 PM LATHER APPRENTICE 600 mg Given 12/23/2011 9:06 AM LATHER APPRENTICE 12/24/2011 8:33 AM LATHER APPRENTICE 10 mg lisinopril (PRINIVIL,ZESTRIL) tablet 10 Given mg 10 mg DAILY, Oral, First dose on Wed12/17/11 at 1745 10 mg Given 12/23/2011 9:06 AM LATHER APPRENTICE 10 mg Given 12/22/2011 9:45 AM LATHER APPRENTICE 12/24/2011 8:33 AM LATHER APPRENTICE 500 mg metformin (GLUCOPHAGE) tablet 500 mg Given 500 mg 2 TIMES DAILY WITH MEALS, Oral, First dose on Wed12/17/11 at 1745 500 mg Given 12/23/2011 4:17 PM LATHER APPRENTICE 500 mg Given 12/23/2011 9:05 AM LATHER APPRENTICE 12/24/2011 8:33 AM LATHER APPRENTICE 1 patch Left Arm nicotine (NICODERM CQ) 21 MG/24HR 1 Patch patch Applied 1 patch DAILY, Transdermal, First dose on Wed12/17/11 at 1745 1 patch Right Arm Patch Applied 12/23/2011 9:06 AM LATHER APPRENTICE 1 patch Left Arm Patch Applied 12/22/2011 9:45 AM LATHER APPRENTICE 12/23/2011 9:22 PM LATHER APPRENTICE 80 mg pravastatin (PRAVACHOL) tablet 80 mg Given 80 mg BEDTIME, Oral, First dose on Wed12/17/11 at 2100 80 mg Given 12/22/2011 9:19 PM LATHER APPRENTICE 80 mg Given 12/21/2011 9:01 PM LATHER APPRENTICE 12/17/2011 8:51 PM LATHER APPRENTICE 400 mg quetiapine (SEROQUEL XR) 24 hr tablet Given 400 mg 400 mg BEDTIME, Oral, First dose on Wed12/17/11 at 2100, [employer] ([place] [employer]er) , 12/23/2011 9:22 PM LATHER APPRENTICE 450 mg quetiapine (SEROQUEL XR) 24 hr tablet Given 450 mg 450 mg BEDTIME, Oral, First dose on Wed12/18/11 at 2000, [employer] ([place] [employer]) , 450 mg Given 12/22/2011 9:24 PM LATHER APPRENTICE 450 mg Given 12/21/2011 9:01 PM LATHER APPRENTICE 12/24/2011 8:33 AM LATHER APPRENTICE 100 mg sertraline (ZOLOFT) tablet 100 mg Given 100 mg DAILY, Oral, First dose on Wed12/17/11 at 1745 100 mg Given 12/23/2011 9:06 AM LATHER APPRENTICE 100 mg Given 12/22/2011 9:45 AM LATHER APPRENTICE 12/24/2011 8:33 AM LATHER APPRENTICE 0.4 mg tamsulosin (FLOMAX) capsule 0.4 mg Given 0.4 mg DAILY, Oral, First dose on Wed12/17/11 at 1745 0.4 mg Given 12/23/2011 9:06 AM LATHER APPRENTICE 0.4 mg Given 12/22/2011 9:45 AM LATHER APPRENTICE 12/22/2011 10:41 PM LATHER APPRENTICE 50 mg trazodone (DESYREL) tablet 50 mg Given 50 mg BEDTIME PRN, Oral, Sleep, Starting Wed12/17/11 at 1728, May repeat x1 dose dose prior to 0100, 50 mg Given 12/21/2011 9:01 PM LATHER APPRENTICE 50 mg Given 12/21/2011 12:15 AM LATHER APPRENTICE 12/18/2011 9:12 AM LATHER APPRENTICE 250 mg valproic acid (DEPAKENE) capsule 250 mg Given 250 mg 2 TIMES DAILY, Oral, First dose on Zuri 12/17/11 at 2100 250 mg Given 12/17/2011 8:51 PM LATHER APPRENTICE 12/21/2011 11:44 AM LATHER APPRENTICE 0.5 mg varenicline (CHANTIX) tablet 0.5 mg Given 0.5 mg DAILY, Oral, First dose on 12/19/11 at 1945, For 3 days, Give with meals and with a full glass of water., 0.5 mg Given 12/20/2011 10:30 AM LATHER APPRENTICE 0.5 mg Given 12/19/2011 9:12 PM LATHER APPRENTICE 12/24/2011 8:33 AM LATHER APPRENTICE 0.5 mg varenicline (CHANTIX) tablet 0.5 mg Given 0.5 mg 2 TIMES DAILY, Oral, First dose on Wed12/22/11 at 0900, For 4 days, Give with meals and with a full glass of water., 0.5 mg Given 12/23/2011 9:22 PM LATHER APPRENTICE 0.5 mg Given 12/23/2011 9:06 AM LATHER APPRENTICE documented in this encounter
--- OUTSIDE RECORDS SUMMARY | 2019-05-25 03:24 | XMS REPORT | Encounter Summary ---
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 Says that he lost his girlfriend and his dogs recently and is wanting to harm himself. States his dogs bit a lady valentine t comes to help him out and they got taken away. Says he is very depressed and d oesn't know what to do. Says that he wants help from this unit. When asked if he has a plan, he stated that he wasn't exactly sure. "Maybe overdosing on crack w ould be the easiest, I'm not sure". Willing to sign self on to this unit. documented in this encounter Plan of Treatment Date/Time Name Type Priority Associated Diagnoses 03/20/2012 10:06 AM CDT EKG 12-LEAD ECG 03/22/2012 9:44 PM CDT EXTERNAL LAB TEST Lab 03/24/2012 12:00 AM CDT EXTERNAL LAB TEST Lab documented as of this encounter Procedures Comments Procedure Name Priority Date/Time Associated Diagnosis BEDSIDE GLUCOSE - NURSE Routine 03/24/2012 11:52 AM CDT BEDSIDE GLUCOSE - NURSE Routine 03/24/2012 6:36 AM CDT BEDSIDE GLUCOSE - NURSE Routine 03/23/2012 9:09 PM CDT BEDSIDE GLUCOSE - NURSE Routine 03/23/2012 4:38 PM CDT BEDSIDE GLUCOSE - NURSE Routine 03/23/2012 11:49 AM CDT BEDSIDE GLUCOSE - NURSE Routine 03/23/2012 6:27 AM CDT BEDSIDE GLUCOSE - NURSE Routine 03/22/2012 8:18 PM CDT BEDSIDE GLUCOSE - NURSE Routine 03/22/2012 4:36 PM CDT BEDSIDE GLUCOSE - NURSE Routine 03/22/2012 11:42 AM CDT BEDSIDE GLUCOSE - NURSE Routine 03/22/2012 6:52 AM CDT HEMOGLOBIN A1C Routine 03/22/2012 6:45 AM CDT BEDSIDE GLUCOSE - NURSE Routine 03/21/2012 8:17 PM CDT BEDSIDE GLUCOSE - NURSE Routine 03/21/2012 4:36 PM CDT BEDSIDE GLUCOSE - NURSE Routine 03/21/2012 11:33 AM CDT BEDSIDE GLUCOSE - NURSE Routine 03/21/2012 6:46 AM CDT BEDSIDE GLUCOSE - NURSE Routine 03/20/2012 8:03 PM CDT BEDSIDE GLUCOSE - NURSE Routine 03/20/2012 4:41 PM CDT BEDSIDE GLUCOSE - NURSE Routine 03/20/2012 11:44 AM CDT BEDSIDE GLUCOSE - NURSE Routine 03/20/2012 6:22 AM CDT BEDSIDE GLUCOSE - NURSE Routine 03/19/2012 8:36 PM CDT ELECTROCARDIOGRAM REPORT Routine 03/19/2012 COPD (chronic obstructive 6:50 PM CDT pulmonary disease) (HCC) DM (diabetes mellitus) (HCC) IP CONSULT TO HOSPITALIST Routine 03/19/2012 6:32 PM CDT XR CHEST PA AND LATERAL STAT 03/19/2012 1:40 PM CDT PERFORM POINT OF CARE STAT 03/19/2012 GLUCOSE 12:40 PM CDT BEDSIDE GLUCOSE - NURSE Routine 03/19/2012 12:32 PM CDT ESTIMATED GFR STAT 03/19/2012 12:32 PM CDT TSH (REFLEX FREE T4 IF STAT 03/19/2012 ABNORMAL) 12:32 PM CDT SEDIMENTATION RATE, RAUL 03/19/2012 MANUAL 12:32 PM CDT CBC AND DIFFERENTIAL STAT 03/19/2012 12:32 PM CDT FOLATE RBC RAUL 03/19/2012 12:32 PM CDT VITAMIN B12 RAUL 03/19/2012 12:32 PM CDT ALCOHOL, SERUM STAT 03/19/2012 12:32 PM CDT ACETAMINOPHEN LEVEL STAT 03/19/2012 12:32 PM CDT SALICYLATE LEVEL STAT 03/19/2012 12:32 PM CDT COMPREHENSIVE METABOLIC STAT 03/19/2012 PANEL 12:32 PM CDT SALICYLATES STAT 03/19/2012 12:30 PM CDT URINALYSIS, REFLEX STAT 03/19/2012 CULTURE IF NEEDED 12:30 PM CDT DRUG SCREEN (8) MEDICAL STAT 03/19/2012 12:30 PM CDT EXTERNAL RADIOLOGY 03/19/2012 PROCEDURE 12:00 AM CDT documented in this encounter Results * Bedside Glucose - NURSE (03/24/2012 11:52 AM CDT) Bedside Glucose 154 (H) 74 - 106 mg/dL [facility] - Nurse Specimen Performing Organization Address [facility] Phone Number [facility] [address] [place] [phone] [facility] * Bedside Glucose - NURSE (03/24/2012 6:36 AM CDT) Bedside Glucose 157 (H) 74 - 106 mg/dL [facility] - Nurse Specimen Performing Organization Address [facility] Phone Number [facility] [address] [place] [address] [facility] * Bedside Glucose - NURSE (03/23/2012 9:09 PM CDT) Bedside Glucose 103 74 - 106 mg/dL [facility] - Nurse Specimen Performing Organization Address [facility] Phone Number [facility] [address] [place], [place] [phone] [facility] * Bedside Glucose - NURSE (03/23/2012 4:38 PM CDT) Bedside Glucose 239 (H) 74 - 106 mg/dL [facility] - Nurse Specimen Performing Organization Address [facility] Phone Number [facility] [address] [place] [address] [facility] * Bedside Glucose - NURSE (03/23/2012 11:49 AM CDT) Bedside Glucose 231 (H) 74 - 106 mg/dL [facility] - Nurse Specimen Performing Organization Address [facility] Phone Number [facility] [address] [place] [phone] [facility] * Bedside Glucose - NURSE (03/23/2012 6:27 AM CDT) Bedside Glucose 154 (H) 74 - 106 mg/dL [facility] - Nurse Specimen Performing Organization Address [facility] Phone Number [facility] [address] [place] [phone] [facility] * Bedside Glucose - NURSE (03/22/2012 8:18 PM CDT) Bedside Glucose 154 (H) 74 - 106 mg/dL [facility] - Nurse Specimen Performing Organization Address [facility] Phone Number [facility] [address] [place] [phone] [facility] * Bedside Glucose - NURSE (03/22/2012 4:36 PM CDT) Bedside Glucose 228 (H)Comment: Notified Nurse 74 - 106 mg/dL [facility] - Nurse Specimen Performing Organization Address [facility] Phone Number [facility] [address] [place] [phone] [facility] * Bedside Glucose - NURSE (03/22/2012 11:42 AM CDT) Bedside Glucose 187 (H) 74 - 106 mg/dL [facility] - Nurse Specimen Performing Organization Address [facility] Phone Number [facility] [address] [place] [phone] [facility] * Bedside Glucose - NURSE (03/22/2012 6:52 AM CDT) Bedside Glucose 166 (H)Comment: Notified Nurse 74 - 106 mg/dL [facility] - Nurse Specimen Performing Organization Address [facility] Phone Number [facility] [address] [place] [phone] [facility] * Hemoglobin A1C (03/22/2012 6:45 AM CDT) Hemoglobin A1C 7.7 (H) 4.0 - 6.0 % [facility] Comment: A1C Interpretive Guidelines: Target value=6.5% Specimen Blood specimen (specimen) Performing Organization Address [facility] Phone Number [facility] [address] [place] [phone] [facility] * Bedside Glucose - NURSE (03/21/2012 8:17 PM CDT) Bedside Glucose 249 (H) 74 - 106 mg/dL [facility] - Nurse Specimen Performing Organization Address [facility] Phone Number [facility] [address] [place] [phone] [facility] * Bedside Glucose - NURSE (03/21/2012 4:36 PM CDT) Bedside Glucose 149 (H) 74 - 106 mg/dL [facility] - Nurse Specimen Performing Organization Address [facility] Phone Number [facility] [address] [place] [phone] [facility] * Bedside Glucose - NURSE (03/21/2012 11:33 AM CDT) Bedside Glucose 244 (H) 74 - 106 mg/dL [facility] - Nurse Specimen Performing Organization Address [facility] Phone Number [facility] [address] [place] [phone] [facility] * Bedside Glucose - NURSE (03/21/2012 6:46 AM CDT) Bedside Glucose 215 (H) 74 - 106 mg/dL [facility] - Nurse Specimen Performing Organization Address [facility] Phone Number [facility] [address] [place] [phone] [facility] * Bedside Glucose - NURSE (03/20/2012 8:03 PM CDT) Bedside Glucose 270 (H) 74 - 106 mg/dL [facility] - Nurse Specimen Performing Organization Address [facility] Phone Number [facility] [address] [place] [address] [facility] * Bedside Glucose - NURSE (03/20/2012 4:41 PM CDT) Bedside Glucose 233 (H) 74 - 106 mg/dL [facility] - Nurse Specimen Performing Organization Address [facility] Phone Number [facility] [address] [place] [address] [facility] * Bedside Glucose - NURSE (03/20/2012 11:44 AM CDT) Bedside Glucose 265 (H) 74 - 106 mg/dL [facility] - Nurse Specimen Performing Organization Address [facility] Phone Number [facility] [address] [place] [phone] [facility] * EKG 12-LEAD (03/20/2012 10:06 AM CDT) Narrative Performed At * Bedside Glucose - NURSE (03/20/2012 6:22 AM CDT) Bedside Glucose 209 (H)Comment: Notified Nurse 74 - 106 mg/dL [facility] - Nurse Specimen Performing Organization Address [facility] Phone Number [facility] [address] [place] [phone] [facility] * Bedside Glucose - NURSE (03/19/2012 8:36 PM CDT) Bedside Glucose 194 (H)Comment: Notified Nurse 74 - 106 mg/dL [facility] - Nurse Specimen Performing Organization Address [facility] Phone Number [facility] [address] [place] [phone] [facility] * ELECTROCARDIOGRAM REPORT (03/19/2012 6:50 PM CDT) Narrative Performed At Lola Sharif APRN 03/19/20122:27 PM History Chief Complaint Patient presents with Suicidal HPI Comments: 61 yr old male to ER sent from [facility] for medical clearance to go to [facility] due to SI. Pt states that he has a plan for SI and reports that he would "overdose on crack cocaine." Pt reports that he has "lost my animals and lost my sweetie and it has just all come down on me." Pt with hx of psychiatric illness as well as substance abuse. Admits to using crack cocaine (smoking), THC, and alcohol. Has a home, but is not currently staying there and instead, has been staying with someone else. When asked how much crack he uses, pt replied, "I don't know..." When asked how much alcohol he drinks, pt replied, "I don't know..." Pt states that he is only taking Seroquel and stopped taking his diabetes meds "a long time ago." He does follow up at [facility], but otherwise, has not seen a PCP "for a long time." Patient is a 61 y.o. male presenting with mental health disorder. The history is provided by the patient. No sign language teacher was used. Mental health disorder: Primary symptoms: dysphoric mood and negative symptoms.Pertinent negatives: no delusions, no hallucinations, no bizarre behavior, no disorganized speech and no somatic symptoms. Illness onset:This week Illness chronicity:Recurrent Onset:This week Progression:Worsening Severity:Moderate Manifestations:Sadness, emptiness and despair Precipitated by:A stressful event Onset:This week Progression:Worsening Specific negative symptoms:Affective blunting and anhedonia Precipitated by:A stressful event, emotional stress, alcohol abuse and drug abuse Degree of incapacity:Moderate Sequelae of psychiatric problems:Harmed interpersonal relations Associated symptoms: anhedonia, insomnia, agitation, feelings of worthlessness and poor judgment. Suicidal ideation?:Suicidal ideas Has a plan to commit suicide?:Does have a plan Contemplates self-injury?:Contemplates harming Injured self?:Has not already injured self Contemplates injuring another person?:Does not contemplate injuring another person Injured another person?:Has not alreadyinjured another person Risk factors for mental illness:A history of mental illness and substance abuse Past Medical History Diagnosis Date CVA (cerebral infarction) COPD (chronic obstructive pulmonary disease) Diabetes mellitus Hypertension Stroke Bipolar disorder Blindness, legal Substance abuse/dependence crack cocaine, THC Alcohol dependence, episodic History of medication noncompliance Tobacco abuse disorder Past Surgical History Procedure Date Eye surgery History reviewed. No pertinent family history. History Substance Use Topics Smoking status: Current Everyday Smoker -- 1.0 packs/day Types: Cigarettes Smokeless tobacco: Never Used Alcohol Use: Yes Review of Systems Constitutional: Negative. HENT: Negative. Eyes: Negative. Respiratory: Positive for cough. Cardiovascular: Negative. Gastrointestinal: Negative. Genitourinary: Negative. Musculoskeletal: Negative. Neurological: Negative. Hematological: Negative. Psychiatric/Behavioral: Positive for suicidal ideas, behavioral problems, dysphoric mood, decreased concentration and agitation. Negative for hallucinations. The patient has insomnia. Physical Exam BP 145/93 | Pulse 91 | Temp 97.8 F (36.6 C) | Resp 18 | SpO2 97% Physical Exam Nursing note and vitals reviewed. Constitutional: He is oriented to person, place, and time. He appears well-developed and well-nourished. No distress. HENT: Head: Normocephalic and atraumatic. Eyes: Pupils are equal, round, and reactive to light. Neck: Normal range of motion. Neck supple. Cardiovascular: Normal rate, regular rhythm, normal heart sounds and intact distal pulses. No murmur heard. Pulmonary/Chest: No accessory muscle usage. Not tachypneic. No respiratory distress. He has decreased breath sounds. Lung sounds diminished throughout Abdominal: Soft. Normal appearance and bowel sounds are normal. There is no tenderness. There is no rebound. Musculoskeletal: Normal range of motion. Neurological: He is alert and oriented to person, place, and time. He has normal strength. No cranial nerve deficit or sensory deficit. GCS eye subscore is 4. GCS verbal subscore is 5. GCS motor subscore is 6. Skin: Skin is warm, dry and intact. Psychiatric: His affect is blunt. His speech is delayed. He is withdrawn. Thought content is not paranoid and not delusional. Cognition and memory are normal. He expresses inappropriate judgment. He expresses suicidal ideation. He expresses no homicidal ideation. He expresses suicidal plans. He expresses no homicidal plans. Pt oriented to person, place, time Poor judgement, poor concentration SI with plan to overdose on crack cocaine Flat affect, delayed response to questions Poor eye contact ED Course ELECTROCARDIOGRAM REPORT Date/Time: 03/19/2012 12:30 PM Performed by: LOLA SHARIF Authorized by: LOLA SHARIF interpreted by ED physician Comparison: not compared with previous ECG Comparison to previous ECG: Interpreted by Dr. Bhavesh Odonnell Rhythm: sinus rhythm Rate:normal BPM: 93 QRS axis: normal Conduction: conduction normal ST Segments: ST segments normal T Waves: T waves normal Other: no other findings MDM Number of Diagnoses or Management Options Diagnosis management comments: Plan: Case Management services Medical clearance Hx COPD- CXR Hx CAD- EKG/CXR Anticipate transfer to [facility] if bed available. Pt willing to go. Amount and/or Complexity of Data Reviewed Clinical lab tests: ordered Tests in the radiology section of CPT: ordered Risk of Complications, Morbidity, and/or Mortality Presenting problems: moderate Diagnostic procedures: moderate Management options: low General comments: Labs Reviewed CBC AND DIFFERENTIAL - Abnormal; Notable for the following: Eosinophils Relative5.1 (*) All other components within normal limits COMPREHENSIVE METABOLIC PANEL - Abnormal; Notable for the following: Glucose 205 (*) All other components within normal limits ACETAMINOPHEN LEVEL - Abnormal; Notable for the following: Acetaminophen Level <2.4 (*) All other components within normal limits URINALYSIS, REFLEX CULTURE IF NEEDED - Abnormal; Notable for the following: Protein, UA 1+ (*) Glucose, UA TRACE (*) Urobilinogen, UA2.0 (*) All other components within normal limits SALICYLATE LEVEL - Abnormal; Notable for the following: Salicylate Lvl<1 (*) All other components within normal limits BEDSIDE GLUCOSE - NURSE - Abnormal; Notable for the following: Bedside Glucose - Nurse 208 (*) Notified Nurse All other components within normal limits DRUG SCREEN (8) MEDICAL- (+) cocaine ALCOHOL, SERUM- <10 TSH (REFLEX FREE T4 IF ABNORMAL) ESTIMATED GFR SALICYLATES X-ray Chest Pa And Lateral 03/19/2012Clinical History: COPD.Technique: Two view chest. Findings: The cardiac silhouette and mediastinal contour are unremarkable. No hilar lymphadenopathy is appreciated. The lungs are clear. There is no pneumothorax or pleural effusion. Impression:No acute cardiopulmonary process. 2:17 PM Labs and x-ray stable. Plan for transfer to [facility]. Media Planner / Buyer notified. Patient Progress Patient progress: stable 2:20 PM Media Planner / Buyer called- [facility] is very familiar with pt and they have agreed to take him when he is medically clear. When cleared, call Media Planner / Buyer to set up transfer. [id number]: [facility] charge nurse came to ER to evaluate pt. He has been accepted pending CXR. Procedure Note Lola Sharif, [employer] - 03/19/2012 12:43 PM CDT History Chief Complaint Patient presents with Suicidal HPI Comments: 61 yr old male to ER sent from [facility] for medical clearance to go to [facility] due to SI. Pt states that he has a plan for SI and reports that he would "overdose on crack cocaine." Pt reports that he has "lost my animals and lost my sweetie and it has just all come down on me." Pt with hx of psychiatric illness as well as substance abuse. Admits to using crack cocaine (smoking), THC, and alcohol. Has a home, but is not currently staying there and instead, has been staying with someone else. When asked how much crack he uses, pt replied, "I don't know..." When asked how much alcohol he drinks, pt replied, "I don't know..." Pt states that he is only taking Seroquel and stopped taking his diabetes meds "a long time ago." He does follow up at [facility], but otherwise, has not seen a PCP "for a long time." Patient is a 61 y.o. male presenting with mental health disorder. The history is provided by the patient. No sign language teacher was used. Mental health disorder: Primary symptoms: dysphoric mood and negative symptoms.Pertinent negatives: no delusions, no hallucinations, no bizarre behavior, no disorganized speech and no somatic symptoms. Illness onset: This week Illness chronicity: Recurrent Onset: This week Progression: Worsening Severity: Moderate Manifestations: Sadness, emptiness and despair Precipitated by: A stressful event Onset: This week Progression: Worsening Specific negative symptoms: Affective blunting and anhedonia Precipitated by: A stressful event, emotional stress, alcohol abuse and drug abuse Degree of incapacity: Moderate Sequelae of psychiatric problems: Harmed interpersonal relations Associated symptoms: anhedonia, insomnia, agitation, feelings of worthlessness and poor judgment. Suicidal ideation?: Suicidal ideas Has a plan to commit suicide?: Does have a plan Contemplates self-injury?: Contemplates harming Injured self?: Has not already injured self Contemplates injuring another person?: Does not contemplate injuring another person Injured another person?: Has not already injured another person Risk factors for mental illness: A history of mental illness and substance abuse Past Medical History Diagnosis Date CVA (cerebral infarction) COPD (chronic obstructive pulmonary disease) Diabetes mellitus Hypertension Stroke Bipolar disorder Blindness, legal Substance abuse/dependence crack cocaine, THC Alcohol dependence, episodic History of medication noncompliance Tobacco abuse disorder Past Surgical History Procedure Date Eye surgery History reviewed. No pertinent family history. History Substance Use Topics Smoking status: Current Everyday Smoker -- 1.0 packs/day Types: Cigarettes Smokeless tobacco: Never Used Alcohol Use: Yes Review of Systems Constitutional: Negative. HENT: Negative. Eyes: Negative. Respiratory: Positive for cough. Cardiovascular: Negative. Gastrointestinal: Negative. Genitourinary: Negative. Musculoskeletal: Negative. Neurological: Negative. Hematological: Negative. Psychiatric/Behavioral: Positive for suicidal ideas, behavioral problems, dysphoric mood, decreased concentration and agitation. Negative for hallucinations. The patient has insomnia. Physical Exam BP 145/93 | Pulse 91 | Temp 97.8 F (36.6 C) | Resp 18 | SpO2 97% Physical Exam Nursing note and vitals reviewed. Constitutional: He is oriented to person, place, and time. He appears well- developed and well-nourished. No distress. HENT: Head: Normocephalic and atraumatic. Eyes: Pupils are equal, round, and reactive to light. Neck: Normal range of motion. Neck supple. Cardiovascular: Normal rate, regular rhythm, normal heart sounds and intact distal pulses. No murmur heard. Pulmonary/Chest: No accessory muscle usage. Not tachypneic. No respiratory distress. He has decreased breath sounds. Lung sounds diminished throughout Abdominal: Soft. Normal appearance and bowel sounds are normal. There is no tenderness. There is no rebound. Musculoskeletal: Normal range of motion. Neurological: He is alert and oriented to person, place, and time. He has normal strength. No cranial nerve deficit or sensory deficit. GCS eye subscore is 4. GCS verbal subscore is 5. GCS motor subscore is 6. Skin: Skin is warm, dry and intact. Psychiatric: His affect is blunt. His speech is delayed. He is withdrawn. Thought content is not paranoid and not delusional. Cognition and memory are normal. He expresses inappropriate judgment. He expresses suicidal ideation. He expresses no homicidal ideation. He expresses suicidal plans. He expresses no homicidal plans. Pt oriented to person, place, time Poor judgement, poor concentration SI with plan to overdose on crack cocaine Flat affect, delayed response to questions Poor eye contact ED Course ELECTROCARDIOGRAM REPORT Date/Time: 03/19/2012 12:30 PM Performed by: LOLA SHARIF Authorized by: LOLA SHARIF interpreted by ED physician Comparison: not compared with previous ECG Comparison to previous ECG: Interpreted by Dr. Bhavesh Odonnell Rhythm: sinus rhythm Rate:normal BPM: 93 QRS axis: normal Conduction: conduction normal ST Segments: ST segments normal T Waves: T waves normal Other: no other findings MDM Number of Diagnoses or Management Options Diagnosis management comments: Plan: Case Management services Medical clearance Hx COPD- CXR Hx CAD- EKG/CXR Anticipate transfer to [facility] if bed available. Pt willing to go. Amount and/or Complexity of Data Reviewed Clinical lab tests: ordered Tests in the radiology section of CPT: ordered Risk of Complications, Morbidity, and/or Mortality Presenting problems: moderate Diagnostic procedures: moderate Management options: low General comments: Labs Reviewed CBC AND DIFFERENTIAL - Abnormal; Notable for the following: Eosinophils Relative 5.1 (*) All other components within normal limits COMPREHENSIVE METABOLIC PANEL - Abnormal; Notable for the following: Glucose 205 (*) All other components within normal limits ACETAMINOPHEN LEVEL - Abnormal; Notable for the following: Acetaminophen Level <2.4 (*) All other components within normal limits URINALYSIS, REFLEX CULTURE IF NEEDED - Abnormal; Notable for the following: Protein, UA 1+ (*) Glucose, UA TRACE (*) Urobilinogen, UA 2.0 (*) All other components within normal limits SALICYLATE LEVEL - Abnormal; Notable for the following: Salicylate Lvl <1 (*) All other components within normal limits BEDSIDE GLUCOSE - NURSE - Abnormal; Notable for the following: Bedside Glucose - Nurse 208 (*) Notified Nurse All other components within normal limits DRUG SCREEN (8) MEDICAL- (+) cocaine ALCOHOL, SERUM- <10 TSH (REFLEX FREE T4 IF ABNORMAL) ESTIMATED GFR SALICYLATES X-ray Chest Pa And Lateral 03/19/2012 Clinical History: COPD. Technique: Two view chest. Findings: The cardiac silhouette and mediastinal contour are unremarkable. No hilar lymphadenopathy is appreciated. The lungs are clear. There is no pneumothorax or pleural effusion. Impression: No acute cardiopulmonary process. 2:17 PM Labs and x-ray stable. Plan for transfer to SDU. Media Planner / Buyer notified. Patient Progress Patient progress: stable 2:20 PM Media Planner / Buyer called- SDU is very familiar with pt and they have agreed to take him when he is medically clear. When cleared, call Media Planner / Buyer to set up transfer. 1345: SDU charge nurse came to ER to evaluate pt. He has been accepted pending CXR. Lola Sharif, HINA 03/19/12 1427 Bhavesh Odonnell MD 03/19/12 3420 * Consult to Hospitalist (03/19/2012 6:32 PM CDT) Narrative Performed At Sam Alberto MD 03/19/20126:32 PM [place] [phone] Hospitalist Consult Note Patient Name:Mark Saldaña :1950 Age:61 y.o. 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 Patient also experiencing uncontrolled diabetes. Patient is actively suicidal and states he wants to kill himself. No CP. No SOB. No wheezing. No cough. No fever or chills. Past Medical History Diagnosis Date CVA (cerebral infarction) COPD (chronic obstructive pulmonary disease) Diabetes mellitus Hypertension Stroke Bipolar disorder Blindness, legal Substance abuse/dependence crack cocaine, THC Alcohol dependence, episodic History of medication noncompliance Tobacco abuse disorder Past Surgical History Procedure Date Eye surgery History reviewed. No pertinent family history. No family status information on file. History Social History Marital Status: Spouse Name: N/A Number of Children: N/A Years of Education: N/A Occupational History Not on file. Social History Main Topics Smoking status: Current Everyday Smoker -- 1.0 packs/day Types: Cigarettes Smokeless tobacco: Never Used Alcohol Use: Yes Drug Use: Yes Special: Cocaine, Marijuana smokes crack cocaine Sexually Active: Not Currently -- Female partner(s) Other Topics Concern Not on file Social History Narrative No narrative on file No prescriptions prior to admission Current Facility-Administered Medications Medication Dose Route Frequency Provider Last Rate Last Dose acetaminophen (TYLENOL) tablet 650 mg650 mg Oral Q6H PRN Saturnino Pepper MD alum & mag hydroxide-simethicone (MYLANTA) 200-200-20 MG/5ML liquid 30 mL30 mL Oral TID PRN Saturnino Pepper MD magnesium hydroxide concentrated (MILK OF MAGNESIA) 2400 MG/10ML liquid 10 mL10 mL Oral Daily PRN Saturnino Pepper MD quetiapine (SEROQUEL) tablet 25 mg25 mg Oral Q6H PRN Saturnino Pepper MD trazodone (DESYREL) tablet 50 mg50 mg Oral Bedtime PRN Saturnino Pepper MD Allergies Allergen Reactions Haldol Decanoate "get's real goofy & I'm not really nice to people". Review of Systems:All review of systems negative except pertinent positives listed below. Admission Weight:Weight: 187 lb 7 oz (85.021 kg) Patient Vitals for the past 72 hrs: BP Temp Pulse Resp SpO2 Height Weight 03/19/12 1645 121/82 mmHg - 98- - - - 03/19/12 1553 116/65 mmHg 98.1 F (36.7 C) 965533 % 6' (1.829 m) 187 lb 7 oz (85.021 kg) 03/19/12 1356 - - 91- 97 % - - 03/19/12 1352 145/93 mmHg - - - - - - 03/19/12 1154 121/95 mmHg 97.8 F (36.6 C) [id number] % - - Recent Labs Basename 03/19/12 1232 GLU 205* No results found for this basename: GLUF in the last 24 hours Physical Exam: BP 121/82 | Pulse 98 | Temp 98.1 F (36.7 C) | Resp 18 | Ht 6' (1.829 m) | Wt 187 lb 7 oz (85.021 kg) | BMI 25.42 kg/m2 | SpO2 93% General appearance:alert, appears stated age and cooperative Head:Normocephalic, without obvious abnormality, atraumatic Throat:lips, mucosa, and tongue normal; teeth and gums normal Neck:no adenopathy, no carotid bruit, no JVD, supple, symmetrical, trachea midline and thyroid not enlarged, symmetric, no tenderness/mass/nodules Lungs:clear to auscultation bilaterally Heart:regular rate and rhythm, S1, S2 normal, no murmur, click, rub or gallop Abdomen:soft, non-tender; bowel sounds normal; no masses,no organomegaly Extremities:extremities normal, atraumatic, no cyanosis or edema Neurologic:Grossly normal Labs: Recent Results (from the past 24 hour(s)) DRUG SCREEN (8) MEDICAL Collection Time 03/19/12 12:30 PM Component Value Range Amphetamine NEGATIVECutoff 1000 (ng/mL) Barbiturates NEGATIVECutoff 200 (ng/mL) Benzodiazepines NEGATIVECutoff 200 (ng/mL) Cocaine (Metabolite) POSITIVECutoff 300 (ng/mL) Opiates NEGATIVECutoff 300 (ng/mL) PCP NEGATIVECutoff 25 (ng/mL) THC NEGATIVECutoff 50 (ng/mL) MDMA URINE NEGATIVECutoff 500 (ng/mL) URINALYSIS, REFLEX CULTURE IF NEEDED Collection Time 03/19/12 12:30 PM Component Value Range Color, UA Yellow Appearance CLEAR Specific [place], UA 1.0181.003 - 1.030 pH, UA 6.05.0 - 8.0 Protein, UA 1+ (*) NEG Glucose, UA TRACE (*) NEG Ketones, UA NEGNEG Urobilinogen, UA 2.0 (*) 0.0 - 1.0 (EU) Bilirubin, UA NEGNEG Hemoglobin, UA NEGNEG Leukoesterase, UA NEGNEG Nitrate, UA NEGNEG Squam Epithel, UA 1+0-1+ Mucous 2+ WBC, UA 0-30 - 3 (/HPF) Culture Set NOT PERFORMED RBC, UA 0-30 - 3 (/HPF) Hyaline Casts, UA 3 SALICYLATES Collection Time 03/19/12 12:30 PM Component Value Range Salicylate, Urine NEGATIVE CBC AND DIFFERENTIAL Collection Time 03/19/12 12:32 PM Component Value Range WBC 5.84.8 - 10.8 (10 3/cumm) RBC 4.684.50 - 5.90 (10 6/cumm) Hemoglobin 14.513.5 - 17.5 (g/dL) Hematocrit 41.740.0 - 52.0 (%) MCV 89.280.0 - 100.0 (fL) MCH 31.026.0 - 34.0 (pg) MCHC 34.731.0 - 37.0 (g/dL) RDW 13.610.0 - 14.8 (%) Platelets 242113 - 412 (10 3/cumm) MPV 8.16.8 - 10.0 (fL) Neutrophils Relative 48.440.0 - 75.0 (%) Lymphocytes Relative 39.022.0 - 49.0 (%) Monocytes Relative 7.12.0 - 9.0 (%) Eosinophils Relative 5.1 (*) 0.0 - 5.0 (%) Basophils Relative 0.40.0 - 2.5 (%) COMPREHENSIVE METABOLIC PANEL Collection Time 03/19/12 12:32 PM Component Value Range Albumin 4.53.4 - 4.8 (g/dL) Alkaline Phosphatase 00544 - 122 (U/L) ALT 1810 - 46 (U/L) AST 2216 - 37 (U/L) Total Bilirubin 1.00.3 - 1.2 (mg/dL) BUN, Bld 166 - 20 (mg/dL) Calcium 9.78.7 - 10.5 (mg/dL) Chloride 12307 - 111 (mmol/L) Creatinine 1.10.6 - 1.2 (mg/dL) Glucose 205 (*) 74 - 106 (mg/dL) Potassium 4.23.6 - 4.9 (mmol/L) Total Protein 7.86.4 - 8.3 (g/dL) Sodium 950175 - 145 (mmol/L) CO2 2720 - 36 (mmol/L) ACETAMINOPHEN LEVEL Collection Time 03/19/12 12:32 PM Component Value Range Acetaminophen Level <2.4 (*) 10.0 - 30.0 (ug/mL) ALCOHOL, SERUM Collection Time 03/19/12 12:32 PM Component Value Range Alcohol Scrn <100 - 10 (mg/dL) TSH (REFLEX FREE T4 IF ABNORMAL) Collection Time 03/19/12 12:32 PM Component Value Range TSH 1.3360.400 - 4.000 (uIU/mL) SALICYLATE LEVEL Collection Time 03/19/12 12:32 PM Component Value Range Salicylate Lvl <1 (*) 3 - 20 (mg/dL) ESTIMATED GFR Collection Time 03/19/12 12:32 PM Component Value Range GFR MDRD Af Amer >59>59 (ml/min) GFR MDRD Non Af Amer >59>59 (ml/min) BEDSIDE GLUCOSE - NURSE Collection Time 03/19/12 12:32 PM Component Value Range Bedside Glucose - Nurse 208 (*) 74 - 106 (mg/dL) VITAMIN B12 Collection Time 03/19/12 12:32 PM Component Value Range Vitamin B-12 080516 - 911 (pg/mL) SEDIMENTATION RATE, MANUAL Collection Time 03/19/12 12:32 PM Component Value Range Sed Rate 25 (*) 0 - 15 (MM/HR) Assessment / Plan: Active Problems: Accelerated hypertension DM (diabetes mellitus), type 2, uncontrolled CVA (cerebral vascular accident) Closely follow hemodynamics. Diabetes management consult. Will need nicotine patch. Will continue to follow. Sam Alberto MD Electronic Signature 03/19/2012 6:24 PM Procedure Note Sam Alberto MD - 03/19/2012 6:15 PM CDT [place] [phone] Hospitalist Consult Note Patient Name: Mark Saldaña : 1950 Age: 61 y.o. 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 Patient also experiencing uncontrolled diabetes. Patient is actively suicidal and states he wants to kill himself. No CP. No SOB. No wheezing. No cough. No fever or chills. Past Medical History Diagnosis Date CVA (cerebral infarction) COPD (chronic obstructive pulmonary disease) Diabetes mellitus Hypertension Stroke Bipolar disorder Blindness, legal Substance abuse/dependence crack cocaine, THC Alcohol dependence, episodic History of medication noncompliance Tobacco abuse disorder Past Surgical History Procedure Date Eye surgery History reviewed. No pertinent family history. No family status information on file. History Social History Marital Status: Spouse Name: N/A Number of Children: N/A Years of Education: N/A Occupational History Not on file. Social History Main Topics Smoking status: Current Everyday Smoker -- 1.0 packs/day Types: Cigarettes Smokeless tobacco: Never Used Alcohol Use: Yes Drug Use: Yes Special: Cocaine, Marijuana smokes crack cocaine Sexually Active: Not Currently -- Female partner(s) Other Topics Concern Not on file Social History Narrative No narrative on file No prescriptions prior to admission Current Facility-Administered Medications Medication Dose Route Frequency Provider Last Rate Last Dose acetaminophen (TYLENOL) tablet 650 mg 650 mg Oral Q6H PRN Saturnino Pepper MD alum & mag hydroxide-simethicone (MYLANTA) 200-200-20 MG/5ML liquid 30 mL 30 mL Oral TID PRN Saturnino Pepper MD magnesium hydroxide concentrated (MILK OF MAGNESIA) 2400 MG/10ML liquid 10 mL 10 mL Oral Daily PRN Saturnino Pepper MD quetiapine (SEROQUEL) tablet 25 mg 25 mg Oral Q6H PRN Saturnino Pepper MD trazodone (DESYREL) tablet 50 mg 50 mg Oral Bedtime PRN Saturnino Pepper MD Allergies Allergen Reactions Haldol Decanoate "get's real goofy & I'm not really nice to people". Review of Systems: All review of systems negative except pertinent positives listed below. Admission Weight: Weight: 187 lb 7 oz (85.021 kg) Patient Vitals for the past 72 hrs: BP Temp Pulse Resp SpO2 Height Weight 03/19/12 1645 121/82 mmHg - 98 - - - - 03/19/12 1553 116/65 mmHg 98.1 F (36.7 C) 92 18 93 % 6' (1.829 m) 187 lb 7 oz (85.021 kg) 03/19/12 1356 - - 91 - 97 % - - 03/19/12 1352 145/93 mmHg - - - - - - 03/19/12 1154 121/95 mmHg 97.8 F (36.6 C) 105 18 93 % - - Recent Labs Basename 03/19/12 1232 GLU 205* No results found for this basename: GLUF in the last 24 hours Physical Exam: BP 121/82 | Pulse 98 | Temp 98.1 F (36.7 C) | Resp 18 | Ht 6' (1.829 m) | Wt 187 lb 7 oz (85.021 kg) | BMI 25.42 kg/m2 | SpO2 93% General appearance: alert, appears stated age and cooperative Head: Normocephalic, without obvious abnormality, atraumatic Throat: lips, mucosa, and tongue normal; teeth and gums normal Neck: no adenopathy, no carotid bruit, no JVD, supple, symmetrical, trachea midline and thyroid not enlarged, symmetric, no tenderness/mass/nodules Lungs: clear to auscultation bilaterally Heart: regular rate and rhythm, S1, S2 normal, no murmur, click, rub or gallop Abdomen: soft, non-tender; bowel sounds normal; no masses, no organomegaly Extremities: extremities normal, atraumatic, no cyanosis or edema Neurologic: Grossly normal Labs: Recent Results (from the past 24 hour(s)) DRUG SCREEN (8) MEDICAL Collection Time 03/19/12 12:30 PM Component Value Range Amphetamine NEGATIVE Cutoff 1000 (ng/mL) Barbiturates NEGATIVE Cutoff 200 (ng/mL) Benzodiazepines NEGATIVE Cutoff 200 (ng/mL) Cocaine (Metabolite) POSITIVE Cutoff 300 (ng/mL) Opiates NEGATIVE Cutoff 300 (ng/mL) PCP NEGATIVE Cutoff 25 (ng/mL) THC NEGATIVE Cutoff 50 (ng/mL) MDMA URINE NEGATIVE Cutoff 500 (ng/mL) URINALYSIS, REFLEX CULTURE IF NEEDED Collection Time 03/19/12 12:30 PM Component Value Range Color, UA Yellow Appearance CLEAR Specific [place], UA 1.018 1.003 - 1.030 pH, UA 6.0 5.0 - 8.0 Protein, UA 1+ (*) NEG Glucose, UA TRACE (*) NEG Ketones, UA NEG NEG Urobilinogen, UA 2.0 (*) 0.0 - 1.0 (EU) Bilirubin, UA NEG NEG Hemoglobin, UA NEG NEG Leukoesterase, UA NEG NEG Nitrate, UA NEG NEG Squam Epithel, UA 1+ 0-1+ Mucous 2+ WBC, UA 0-3 0 - 3 (/HPF) Culture Set NOT PERFORMED RBC, UA 0-3 0 - 3 (/HPF) Hyaline Casts, UA 3 SALICYLATES Collection Time 03/19/12 12:30 PM Component Value Range Salicylate, Urine NEGATIVE CBC AND DIFFERENTIAL Collection Time 03/19/12 12:32 PM Component Value Range WBC 5.8 4.8 - 10.8 (10 3/cumm) RBC 4.68 4.50 - 5.90 (10 6/cumm) Hemoglobin 14.5 13.5 - 17.5 (g/dL) Hematocrit 41.7 40.0 - 52.0 (%) MCV 89.2 80.0 - 100.0 (fL) MCH 31.0 26.0 - 34.0 (pg) MCHC 34.7 31.0 - 37.0 (g/dL) RDW 13.6 10.0 - 14.8 (%) Platelets 207 147 - 412 (10 3/cumm) MPV 8.1 6.8 - 10.0 (fL) Neutrophils Relative 48.4 40.0 - 75.0 (%) Lymphocytes Relative 39.0 22.0 - 49.0 (%) Monocytes Relative 7.1 2.0 - 9.0 (%) Eosinophils Relative 5.1 (*) 0.0 - 5.0 (%) Basophils Relative 0.4 0.0 - 2.5 (%) COMPREHENSIVE METABOLIC PANEL Collection Time 03/19/12 12:32 PM Component Value Range Albumin 4.5 3.4 - 4.8 (g/dL) Alkaline Phosphatase 120 29 - 122 (U/L) ALT 18 10 - 46 (U/L) AST 22 16 - 37 (U/L) Total Bilirubin 1.0 0.3 - 1.2 (mg/dL) BUN, Bld 16 6 - 20 (mg/dL) Calcium 9.7 8.7 - 10.5 (mg/dL) Chloride 105 99 - 111 (mmol/L) Creatinine 1.1 0.6 - 1.2 (mg/dL) Glucose 205 (*) 74 - 106 (mg/dL) Potassium 4.2 3.6 - 4.9 (mmol/L) Total Protein 7.8 6.4 - 8.3 (g/dL) Sodium 138 136 - 145 (mmol/L) CO2 27 20 - 36 (mmol/L) ACETAMINOPHEN LEVEL Collection Time 03/19/12 12:32 PM Component Value Range Acetaminophen Level <2.4 (*) 10.0 - 30.0 (ug/mL) ALCOHOL, SERUM Collection Time 03/19/12 12:32 PM Component Value Range Alcohol Scrn <10 0 - 10 (mg/dL) TSH (REFLEX FREE T4 IF ABNORMAL) Collection Time 03/19/12 12:32 PM Component Value Range TSH 1.336 0.400 - 4.000 (uIU/mL) SALICYLATE LEVEL Collection Time 03/19/12 12:32 PM Component Value Range Salicylate Lvl <1 (*) 3 - 20 (mg/dL) ESTIMATED GFR Collection Time 03/19/12 12:32 PM Component Value Range GFR MDRD Af Amer >59 >59 (ml/min) GFR MDRD Non Af Amer >59 >59 (ml/min) BEDSIDE GLUCOSE - NURSE Collection Time 03/19/12 12:32 PM Component Value Range Bedside Glucose - Nurse 208 (*) 74 - 106 (mg/dL) VITAMIN B12 Collection Time 03/19/12 12:32 PM Component Value Range Vitamin B-12 522 211 - 911 (pg/mL) SEDIMENTATION RATE, MANUAL Collection Time 03/19/12 12:32 PM Component Value Range Sed Rate 25 (*) 0 - 15 (MM/HR) Assessment / Plan: Active Problems: Accelerated hypertension DM (diabetes mellitus), type 2, uncontrolled CVA (cerebral vascular accident) Closely follow hemodynamics. Diabetes management consult. Will need nicotine patch. Will continue to follow. Sam Alberto MD Electronic Signature 03/19/2012 6:24 PM * X-ray chest PA and lateral (03/19/2012 1:40 PM CDT) Specimen Narrative Performed At Clinical History: COPD. [facility] RAD Technique: Two view chest. Findings: The cardiac silhouette and mediastinal contour are unremarkable. No hilar lymphadenopathy is appreciated. The lungs are clear. There is no pneumothorax or pleural effusion. Impression: No acute cardiopulmonary process. Procedure Note Ed, Rad Results In - 03/19/2012 2:13 PM CDT Clinical History: COPD. Technique: Two view chest. Findings: The cardiac silhouette and mediastinal contour are unremarkable. No hilar lymphadenopathy is appreciated. The lungs are clear. There is no pneumothorax or pleural effusion. Impression: No acute cardiopulmonary process. Performing Organization Address City/State/[facility] Phone Number [facility] RAD * Perform Point Of Care Glucose (03/19/2012 12:40 PM CDT) Specimen * Sedimentation rate, manual (03/19/2012 12:32 PM CDT) Pathologist [facility] Sed Rate 25 (H) 0 - 15 MM/HR [facility] Specimen Blood specimen (specimen) Performing Organization Address [facility] Phone Number [facility] [address] [place] [phone] [facility] * Folate RBC (03/19/2012 12:32 PM CDT) Pathologist [facility] Hematocrit 41.7 (L) 42.0 - 52.0 % [facility] Red Cell Folate 554 280 - 791 ng/mL [facility] Specimen Blood specimen (specimen) Performing Organization Address [facility] Phone Number [facility] [address] [place] [phone] [facility] * Vitamin B12 (03/19/2012 12:32 PM CDT) Pathologist [facility] Vitamin B-12 522 211 - 911 pg/mL [facility] Comment: Vitamin B-12 Reference Range: Normal =211-911 pg/mL Deficient=32 -246 pg/mL Specimen Blood specimen (specimen) Performing Organization Address [facility] Number [facility] [address] [place] [phone] [facility] * Bedside Glucose - NURSE (03/19/2012 12:32 PM CDT) Pathologist [facility] Bedside Glucose 208 (H)Comment: Notified Nurse 74 - 106 mg/dL [facility] - Nurse Specimen Performing Organization Address [facility] Phone Number [facility] [address] [place] [phone] [facility] * Estimated GFR (03/19/2012 12:32 PM CDT) Pathologist [facility] GFR MDRD Af >59 >59 ml/min [...] Organization Address [facility] Phone Number [facility] [address] [place] [phone] [facility] * Salicylate level (03/19/2012 12:32 PM CDT) Salicylate <1 (L) 3 - 20 mg/dL [facility] Level Comment: Salicylate Reference Ranges: 3-20 mg/dL=Therapeutic >30 mg/dL=Toxic >60 mg/dL=Lethal Specimen Blood specimen (specimen) Performing Organization Address [facility] Phone Number [facility] [address] [place] [phone] [facility] * TSH (Reflex Free T4 if abnormal) (03/19/2012 12:32 PM CDT) TSH 1.336 0.400 - 4.000 uIU/mL [facility] Specimen Performing Organization Address [facility] Phone Number [facility] [address] [place] [phone] [facility] * Alcohol, Serum (03/19/2012 12:32 PM CDT) Alcohol Serum <10 0 - 10 mg/dL [facility] Comment: Al cohol Toxicity Levels: 10-50 mg/dL(or 0.01-0.05%)=None to mild euphoria 50-100 mg/dL(or 0.05-0.1%)=Mild influence on vision 100-150 mg/dL(or 0.1-0.15%)=Euphoria;prolonged reaction time; loss of inhibition 150-200 mg/dL(or 0.15-0.2%)=Reaction time greatly prolonged 200-250 mg/dL(or 0.2-0.25%)=Retardation of thought processes; disturbances of equilibrium 250-400 mg/dL(or 0.25-0.4%)=Deep, possibly fatal coma Specimen Blood specimen (specimen) Performing Organization Address City/[facility] Phone Number [facility] [address] [place] [address] [facility] * Acetaminophen level (03/19/2012 12:32 PM CDT) Pathologist [facility] Acetaminophen <2.4 (L) 10.0 - 30.0 [...] Organization Address [facility] Phone Number [facility] [address] [place], [place] [phone] [facility] * Comprehensive metabolic panel (03/19/2012 12:32 PM CDT) Pathologist [facility] Albumin 4.5 3.4 - 4.8 g/dL [facility] Alkaline 120 29 - 122 U/L [facility] Phosphatase ALT 18 10 - 46 U/L [facility] AST 22 16 - 37 U/L [facility] Total Bilirubin 1.0 0.3 - 1.2 mg/dL [facility] BUN, Bld 16 6 - 20 mg/dL [facility] Calcium 9.7 8.7 - 10.5 mg/dL [facility] Chloride 105 99 - 111 mmol/L [facility] Creatinine 1.1 0.6 - 1.2 mg/dL [facility] Glucose 205 (H) 74 - 106 mg/dL [facility] Potassium 4.2 3.6 - 4.9 mmol/L [facility] Total Protein 7.8 6.4 - 8.3 g/dL [facility] Sodium 138 136 - 145 mmol/L [facility] CO2 27 20 - 36 mmol/L [facility] Specimen Blood specimen (specimen) Performing Organization Address [facility] Phone Number [facility] [address] [place], [place] [phone] [facility] * CBC and differential (03/19/2012 12:32 PM CDT) Pathologist [facility] WBC 5.8 4.8 - 10.8 10 3/cumm [facility] RBC 4.68 4.50 - 5.90 10 [facility] 6/cumm Hemoglobin 14.5 13.5 - 17.5 g/dL [facility] Hematocrit 41.7 40.0 - 52.0 % [facility] MCV 89.2 80.0 - 100.0 fL [facility] MCH 31.0 26.0 - 34.0 pg [facility] MCHC 34.7 31.0 - 37.0 g/dL [facility] RDW 13.6 10.0 - 14.8 % [facility] Platelets 207 147 - 412 10 3/cumm [facility] MPV 8.1 6.8 - 10.0 fL [facility] Neutrophils % 48.4 40.0 - 75.0 % [facility] Lymphocytes % 39.0 22.0 - 49.0 % [facility] Monocytes % 7.1 2.0 - 9.0 % [facility] Eosinophils % 5.1 (H) 0.0 - 5.0 % [facility] Basophils % 0.4 0.0 - 2.5 % [facility] Specimen Blood specimen (specimen) Performing Organization Address City/[facility] Phone Number [facility] [address] [place], [place] [phone] [facility] * Salicylates (03/19/2012 12:30 PM CDT) Pathologist [facility] Salicylate, NEGATIVE [facility] Urine Specimen Performing Organization Address [facility] Phone Number [facility] [address] [place] [phone] [facility] * Urinalysis, reflex culture if indicated (03/19/2012 12:30 PM CDT) Pathologist [facility] Color, UA Yellow [facility] Appearance CLEAR [facility] Specific 1.018 1.003 - 1.030 [facility] [place], UA pH, UA 6.0 5.0 - 8.0 [facility] Protein, UA 1+ (A) NEG [facility] Glucose, UA TRACE (A) NEG [facility] Ketones, UA NEG NEG [facility] Urobilinogen, 2.0 (H) 0.0 - 1.0 EU [facility] UA Bilirubin, UA NEG NEG [facility] Hemoglobin, UA NEG NEG [facility] Leukoesterase, NEG NEG [facility] UA Nitrites, UA NEG NEG [facility] Squam Epithel, 1+ 0-1+ [facility] UA Mucous 2+ [facility] WBC, UA 0-3 0 - 3 /HPF [facility] Culture Set NOT PERFORMED [facility] RBC, UA 0-3 0 - 3 /HPF [facility] Hyaline Casts, 3 /LPF [facility] UA Specimen Urine specimen (specimen) - Urine, Clean Catch Performing Organization Address City/[facility]/Zipcode Phone Number [facility] [address] [place] [phone] [facility] * Drug Screen (8) Medical (03/19/2012 12:30 PM CDT) Amphetamine NEGATIVE Cutoff 1000 ng/mL [facility] Barbiturates NEGATIVE Cutoff 200 ng/mL [facility] Benzodiazepines NEGATIVE Cutoff 200 ng/mL [facility] Cocaine POSITIVE Cutoff 300 ng/mL [facility] (Metabolite) Comment: Results not confirmed. May not meet forensic requirements. Confirmation by GC/MS available upon request. Opiates NEGATIVE Cutoff 300 ng/mL [facility] PCP NEGATIVE Cutoff 25 ng/mL [facility] THC NEGATIVE Cutoff 50 ng/mL [facility] MDMA NEGATIVE Cutoff 500 ng/mL [facility] Specimen Urine specimen (specimen) - Urine, Clean Catch Performing Organization Address [facility] Phone Number [facility] [address] [place] [address] [phone] [facility] * EXTERNAL RADIOLOGY PROCEDURE (03/19/2012 12:00 AM CDT) Narrative Performed At Finalized by system [facility] as part of the [employer] clean up. Procedure Note 01/04/2016 8:16 PM DIRECTOR OF HOSPITALITY Finalized by system [facility] as part of the [employer] clean up. documented in this encounter Visit Diagnoses Diagnosis Bipolar affective disorder (HCC) - Primary Bipolar disorder, unspecified Mood disorder (HCC) Unspecified episodic mood disorder Suicidal ideation Substance abuse (HCC) Other, mixed, or unspecified nondependent drug abuse, unspecified COPD (chronic obstructive pulmonary disease) (HCC) Chronic airway obstruction, not elsewhere classified DM (diabetes mellitus) (HCC) Type II or unspecified type diabetes mellitus without mention of complication, not stated as uncontrolled Vision impairment Unspecified visual loss Accelerated hypertension Essential hypertension, malignant DM (diabetes mellitus), type 2, uncontrolled (HCC) Type II or unspecified type diabetes mellitus without mention of complication, uncontrolled CVA (cerebral vascular accident) (HCC) Unspecified cerebral artery occlusion with cerebral infarction Depression Depressive disorder, not elsewhere classified Cognitive disorder Unspecified persistent mental disorders due to conditions classified elsewhere Suicidal ideations Suicidal ideation Cocaine abuse (HCC) Cocaine abuse, unspecified Vascular dementia (HCC) Vascular dementia, uncomplicated documented in this encounter Administered Medications Action Date Dose Rate Site Medication Order MAR Action 03/23/2012 10:22 PM CDT 20 mg atorvastatin (LIPITOR) tablet 20 mg Given 20 mg BEDTIME, Oral, First dose on 03/19/12 at 2100, [facility] approved substitution for pravastatin (Pravachol). , 20 mg Given 03/22/2012 9:06 PM CDT 20 mg Given 03/21/2012 9:06 PM CDT 03/24/2012 9:00 AM CDT 75 mg clopidogrel (PLAVIX) tablet 75 mg Given 75 mg DAILY, Oral, First dose on 03/19/12 at 1945 75 mg Given 03/23/2012 8:30 AM CDT 75 mg Given 03/22/2012 8:53 AM CDT 03/24/2012 9:00 AM CDT 1 puff fluticasone-salmeterol (ADVAIR) 250-50 Given MCG/DOSE inhaler 1 puff 1 puff EVERY 12 HOURS SCHEDULED (2 times per day), Inhalation, First dose on 03/19/12 at 2100 1 puff Given 03/23/2012 10:22 PM CDT 1 puff Given 03/23/2012 8:30 AM CDT 03/23/2012 8:30 AM CDT 2.5 mg glyBURIDE (DIABETA) tablet 2.5 mg Given 2.5 mg DAILY WITH BREAKFAST, Oral, First dose on Wed03/22/12 at 0800 2.5 mg Given 03/22/2012 8:53 AM CDT 03/24/2012 9:00 AM CDT 5 mg glyBURIDE (DIABETA) tablet 5 mg Given 5 mg DAILY WITH BREAKFAST, Oral, First dose on Zuri 03/24/12 at 0800 03/24/2012 9:00 AM CDT 10 mg lisinopril (PRINIVIL,ZESTRIL) tablet 10 Given mg 10 mg DAILY, Oral, First dose on 03/19/12 at 1945 10 mg Given 03/23/2012 8:30 AM CDT 10 mg Given 03/22/2012 8:53 AM CDT 03/24/2012 9:00 AM CDT 1 patch Right Arm nicotine (NICODERM CQ) 21 MG/24HR 1 Patch patch Applied 1 patch DAILY, Transdermal, First dose on 03/19/12 at 1845 1 patch Left Arm Patch Applied 03/23/2012 8:30 AM CDT 1 patch Left Arm Patch Applied 03/22/2012 8:53 AM CDT 03/24/2012 12:00 PM CDT 2 Units NOVOLOG (insulin aspart) (NOVOLOG) Given injection 0-28 Units 0-28 Units 4 TIMES DAILY BEFORE MEALS & NIGHTLY, Subcutaneous, First dose on 03/19/12 at 2100, BG Very low Low Mod High dose [...] 12 20 28 mg/dl units units units Units And follow hyperglycemia protocol High Alert Medication - Look-Alike/Sound-Alike Medication (apply red warning sticker), 2 Units Given 03/24/2012 8:00 AM CDT 8 Units Right Arm Given 03/23/2012 5:30 PM CDT 03/20/2012 5:00 PM CDT 10 mg olanzapine zydis (ZYPREXA) Given disintegrating tablet 10 mg 10 mg 2 TIMES DAILY PRN, Sublingual, Agitation, severe, Starting 03/19/12 at 1826 03/23/2012 5:51 PM CDT 200 mg quetiapine (SEROQUEL XR) 24 hr tablet Given 200 mg 200 mg BEDTIME, Oral, First dose on 03/21/12 at 1700, Do Not Crush. LOOK-ALIKE/SOUND-ALIKE MED (Bonesteel sticker) , 200 mg Given 03/22/2012 5:26 PM CDT 200 mg Given 03/21/2012 5:35 PM CDT 03/20/2012 6:45 PM CDT 50 mg quetiapine (SEROQUEL XR) 24 hr tablet 50 Given by mg Other 50 mg BEDTIME, Oral, First dose on 03/20/12 at 1900, For 1 dose, Do Not Crush. LOOK-ALIKE/SOUND-ALIKE MED (Bonesteel sticker) , 03/23/2012 5:30 PM CDT 25 mg quetiapine (SEROQUEL) tablet 25 mg Given 25 mg EVERY 6 HOURS PRN, Oral, Anxiety, Starting 03/19/12 at 1814, LOOK-ALIKE/SOUND-ALIKE MED (Bonesteel sticker) , 25 mg Given 03/21/2012 4:58 PM CDT 25 mg Given 03/20/2012 9:10 PM CDT 03/23/2012 10:30 PM CDT 50 mg trazodone (DESYREL) tablet 50 mg Given 50 mg BEDTIME PRN, Oral, Sleep, Starting 03/19/12 at 1814, May repeat x1 dose dose prior to 0100, 50 mg Given 03/22/2012 9:06 PM CDT 50 mg Given 03/21/2012 11:25 PM CDT documented in this encounter
[2019-05-25] MEDS ORDERED: NS IV 1000 ML 1,000 ML IV SCH ×2 (03:25→04:20)
--- NOTE | 2019-05-25 03:25 | NUR ---
CATHETER CLAMPED AFTER 500ML URINARY OUTPUT
--- OUTSIDE RECORDS SUMMARY | 2019-05-25 03:25 | XMS REPORT | Encounter Summary ---
Author Author [facility] Organization [facility] Address Unknown Phone Unavailable Care Team Providers Care Wood Bucker Name Role Phone Ramsey Valladares MD PCP Encounter Details Care Team Description Date Type Department Provider, Default [place] 10/27/2011 Orders Only [place], [place] Social History Date Tobacco Use Types [...] Comments Procedure Name Priority Date/Time Associated Diagnosis BILIRUBIN, DIRECT Routine 10/27/2011 7:30 AM ACIDITY TESTER documented in this encounter Results * BILIRUBIN, DIRECT (10/27/2011 7:30 AM ACIDITY TESTER) Bilirubin, 0.1 0.0 - 0.1 mg/dL [facility] Direct Specimen Performing Organization Address City/State/Zipcode Phone Number [facility] [address] [place] [address] [facility] documented in this encounter Visit Diagnoses Not on filedocumented in this encounter
--- OUTSIDE RECORDS SUMMARY | 2019-05-25 03:25 | XMS REPORT | Encounter Summary ---
Author Author [facility] Organization [facility] Address Unknown Phone Unavailable Care Team Providers Care Dental Laboratory Supervisor Name Role Phone Ramsey Valladares MD PCP Encounter Details Care Team Description Date Type Department Provider, Default [place] 10/27/2011 Orders Only [place], [place] Social History Date Tobacco Use Types [...] Comments Procedure Name Priority Date/Time Associated Diagnosis IRON BINDING CAPACITY Routine 10/27/2011 7:30 AM WELL DIGGER documented in this encounter Results * IRON BINDING CAPACITY (10/27/2011 7:30 AM WELL DIGGER) Iron Binding 308 250 - 450 ug/dL [facility] Capacity Specimen Performing Organization Address City/State/Zipcode Phone Number [facility] [address] [place] [address] [facility] documented in this encounter Visit Diagnoses Not on filedocumented in this encounter
--- OUTSIDE RECORDS SUMMARY | 2019-05-25 03:25 | XMS REPORT | Encounter Summary ---
Author Author [facility] Organization [facility] Address Unknown Phone Unavailable Care Team Providers Care Radio Repairer Domestic Name Role Phone Ramsey Valladares MD PCP Encounter Details Care Team Description Date Type Department Provider, Default [place] 10/27/2011 Orders Only [place], [place] Social History Date Tobacco Use Types [...] Procedure Name Priority Date/Time Associated Diagnosis IRON SATURATION Routine 10/27/2011 7:30 AM COTTON FACTOR documented in this encounter Results * IRON SATURATION (10/27/2011 7:30 AM COTTON FACTOR) Iron Saturation 24 20 - 55 % [facility] Specimen Performing Organization Address City/State/Zipcode Phone Number [facility] [address] [place] [address] [facility] documented in this encounter Visit Diagnoses Not on filedocumented in this encounter
--- OUTSIDE RECORDS SUMMARY | 2019-05-25 03:25 | XMS REPORT | Encounter Summary ---
Author Author [facility] Organization [facility] Address Unknown Phone Unavailable Care Team Providers Care Ag Service Manager Name Role Phone Ramsey Valladares MD PCP Encounter Details Care Team Description Date Type Department Ramsey Valladares MD [address] [place] [address] 07/07/2011 NextGen Doc HISTORICAL CONVERSION Social History Date [...] Progress Notes * Ramsey Valladares MD - 07/07/2011 2:03 PM CDT [facility] [address] [place] [address] [place] [address] July 07, 2011 Paul Peters [address] [place] [address]- _ Dear Mr. Paul Peters, Thank you, Ramsey Valladares MD * Ramsey Valladares MD - 07/07/2011 1:43 PM CDT [facility] Nursing Note for Office Visit July 07, 2011 Patient: Paul Obandofausto Provider: Ramsey Valladares MD : 1950 C-O PCP: Ramsey Valladares MD Age: 60 Years 7 Months Pain Assessment: The patient did not show for today's appointment. 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 dx: 250.00 Allergies Allergy Reaction Comment Haloperidol Psychotic Reaction Haldol Haloperidol Lactate Psychotic Reaction Haldol Date of last: Last Pneumonia vaccine (PPV) 06/25/2009. Last Influenza vaccine was on 10/13/2008. Last adult Tetanus vaccine on 06/25/2009 was Td. Documented by: Princess Swanson LPN documented in this encounter Plan of Treatment Not on filedocumented as of this encounter Visit Diagnoses Not on filedocumented in this encounter
--- OUTSIDE RECORDS SUMMARY | 2019-05-25 03:25 | XMS REPORT | Encounter Summary ---
Author Author [facility] Organization [facility] Address Unknown Phone Unavailable Care Team Providers Care Multisensor Intelligence Officer Name Role Phone Ramsey Valladares MD PCP Encounter Details Care Team Description Date Type Department Provider, Default [place] 10/27/2011 Orders Only [place], [place] Social History Date Tobacco Use Types [...] Comments Procedure Name Priority Date/Time Associated Diagnosis CBC AND DIFFERENTIAL Routine 10/27/2011 7:30 AM ANTIQUE FINISHER documented in this encounter Results * CBC AND DIFFERENTIAL (10/27/2011 7:30 AM ANTIQUE FINISHER) WBC 7.0 4.8 - 10.8 10 3/cumm [facility] RBC 4.20 (L) 4.50 - 5.90 10 [facility] 6/cumm Hemoglobin 13.1 (L) 13.5 - 17.5 g/dL [facility] Hematocrit 37.7 (L) 40.0 - 52.0 % [facility] MCV 89.7 80.0 - 100.0 fL [facility] MCH 31.1 26.0 - 34.0 pg [facility] MCHC 34.7 31.0 - 37.0 g/dL [facility] RDW 14.0 10.0 - 14.8 % [facility] Platelets 176 147 - 412 10 3/cumm [facility] MPV 8.7 6.8 - 10.0 fL [facility] Neutrophils % 46.7 40.0 - 75.0 % [facility] Lymphocytes % 35.3 22.0 - 49.0 % [facility] Monocytes % 9.3 (H) 2.0 - 9.0 % [facility] Eosinophils % 8.2 (H) 0.0 - 5.0 % [facility] Basophils % 0.5 0.0 - 2.5 % [facility] Specimen Performing Organization Address City/State/Zipcode Phone Number [facility] [address] [place] [address] [facility] documented in this encounter Visit Diagnoses Not on filedocumented in this encounter
--- OUTSIDE RECORDS SUMMARY | 2019-05-25 03:25 | XMS REPORT | Encounter Summary ---
Author Author [facility] Organization [facility] Address Unknown Phone Unavailable Care Team Providers Care Transportation Job Titles Name Role Phone Ramsey Valladares MD PCP Encounter Details Care Team Description Date Type Department Provider, Default [place] 10/27/2011 Orders Only [place], [place] Social History Date Tobacco Use Types [...] Comments Procedure Name Priority Date/Time Associated Diagnosis TSH (REFLEX FREE T4 IF Routine 10/27/2011 ABNORMAL) 7:30 AM PHOTOGRAPHER'S MODEL documented in this encounter Results * TSH (REFLEX FREE T4 IF ABNORMAL) (10/27/2011 7:30 AM PHOTOGRAPHER'S MODEL) TSH 2.730 0.400 - 4.000 uIU/mL [facility] Specimen Performing Organization Address City/State/Zipcode Phone Number [facility] [address] [place] [address] [facility] documented in this encounter Visit Diagnoses Not on filedocumented in this encounter
--- OUTSIDE RECORDS SUMMARY | 2019-05-25 03:25 | XMS REPORT | Encounter Summary ---
Author Author [facility] Organization [facility] Address Unknown Phone Unavailable Care Team Providers Care Lead Infrastructure Architect Name Role Phone Ramsey Valladares MD PCP Encounter Details Care Team Description Date Type Department Provider, Default [place] 10/27/2011 Orders Only [place], [place] Social History Date Tobacco Use Types [...] Priority Date/Time Associated Diagnosis ESTIMATED GFR Routine 10/27/2011 7:30 AM RENTAL CLERK TOOL AND EQUIPMENT documented in this encounter Results * ESTIMATED GFR (10/27/2011 7:30 AM RENTAL CLERK TOOL AND EQUIPMENT) GFR MDRD Af >59 >59 ml/min [facility] [...] Specimen Performing Organization Address City/State/Zipcode Phone Number [facility] [address] [place] [address] [facility] documented in this encounter Visit Diagnoses Not on filedocumented in this encounter
--- OUTSIDE RECORDS SUMMARY | 2019-05-25 03:25 | XMS REPORT | Encounter Summary ---
Author Author [facility] Address Unknown Phone Unavailable Care Team Providers Care Outboard Motorboat Rigger Name Role Phone Ramsey Valladares MD PCP Encounter Details Care Team Description Date Type Department Ramsey Valladares MD [address] [place] [address] [phone] 09/17/2011 NextGen Doc HISTORICAL CONVERSION Social History Date [...] Progress Notes * Ramsey Valladares MD - 09/17/2011 9:52 AM [facility] Phone Note September 17, 2011 Patient: Paul Peters Provider: Ramsey Valladares MD : 1950 C-O PCP: Ramsey Valladares MD Pharmacy: [id number] Work Phone: Pharmacy: Last PE: 07/03/2010 Time of call: 09/17/2011 9:49 AM Last Lipids: 04/02/2011 Last TSH: 07/03/2010 Caller: Patient Reason for call: Question Pain Assessment: Pain assessment is not applicable. Message: living in [facility] and asking for dr to discharge him today. [facility] he has been there for 3 months. states he had a stroke. Call received by: Katherin Martinez LPN. Active Medications Brand Name Generic Name Dose Sig Code Stop date Lisinopril Lisinopril 40 Mg One po daily ( not taking ) Metformin Hcl Er Metformin Hcl 500 Mg Two po twice daily Aggrenox Aspirin/dipyridamole 25 Mg-200 Mg One orally twice daily Simvastatin Simvastatin 40 [...] Haloperidol Lactate Psychotic Reaction Haldol Physician Disposition: explained the house dr that has been caring for him need s to do that. also was not sure if dr valladares was aware he was in a [facility] . Recorded by: Katherin Martinez LPN Written order, Ramsey Valladares MD Action Taken: The patient acknowledged the recommendation and voiced agreement Nurse's follow-up comments: Agree, his care has been trasferred. I wish him all the best. Notification Completed: Katherin Martinez LPN 09/17/2011 1:50 PM CTOR CHEMISTRY documented in this encounter Plan of Treatment Not on filedocumented as of this encounter Visit Diagnoses Not on filedocumented in this encounter
--- OUTSIDE RECORDS SUMMARY | 2019-05-25 03:25 | XMS REPORT | Encounter Summary ---
Author Author [facility] Organization [facility] Address Unknown Phone Unavailable Care Team Providers Care Wind Farm Designer Name Role Phone Ramsey Valladares MD PCP Encounter Details Care Team Description Date Type Department Provider, [facility] 10/27/2011 Orders Only [place], [place] Social History Date Tobacco Use Types [...] Priority Date/Time Associated Diagnosis LIPID PANEL Routine 10/27/2011 7:30 AM MANAGER GLOBAL COMMUNICATIONS documented in this encounter Results * LIPID PANEL (10/27/2011 7:30 AM MANAGER GLOBAL COMMUNICATIONS) Cholesterol 157 0 - 200 mg/dL [facility] Triglycerides 119 0 - 149 mg/dL [facility] HDL 39 (L) 40 - 90 mg/dL [facility] LDL Cholesterol 94 0 - 99 mg/dL [facility] Specimen Performing Organization Address City/State/Zipcode Phone Number [facility] [address] [place], [place] [address] [facility] documented in this encounter Visit Diagnoses Not on filedocumented in this encounter
--- OUTSIDE RECORDS SUMMARY | 2019-05-25 03:25 | XMS REPORT | Encounter Summary ---
Author Author [facility] Organization [facility] Address Unknown Phone Unavailable Care Team Providers Care Pottery Machine Operator Name Role Phone Ramsey Valladares MD PCP Encounter Details Care Team Description Date Type Department Provider, Default [place] 10/27/2011 Orders Only [place], [place] Social History Date Tobacco Use Types [...] Priority Date/Time Associated Diagnosis HEMOGLOBIN A1C Routine 10/27/2011 7:30 AM CLERK GUIDE documented in this encounter Results * HEMOGLOBIN A1C (10/27/2011 7:30 AM CLERK GUIDE) Hemoglobin A1C 6.4 (H) 4.0 - 6.0 % [facility] Comment: A1C Interpretive Guidelines: Target value=6.5% Specimen Performing Organization Address City/State/Zipcode Phone Number [facility] [address] [place] [address] [facility] documented in this encounter Visit Diagnoses Not on filedocumented in this encounter
--- OUTSIDE RECORDS SUMMARY | 2019-05-25 03:25 | XMS REPORT | Encounter Summary ---
Author Author [facility] Organization [facility] Address Unknown Phone Unavailable Care Team Providers Care Hogshead Packer Name Role Phone Ramsey Valladares MD PCP Encounter Details Care Team Description Date Type Department Provider, Default [place] 10/27/2011 Orders Only [place], [place] Social History Date Tobacco Use Types [...] Procedure Name Priority Date/Time Associated Diagnosis IRON Routine 10/27/2011 7:30 AM MANAGER EPIC documented in this encounter Results * IRON (10/27/2011 7:30 AM MANAGER EPIC) Iron 73 (L) 81 - 208 ug/dL [facility] Specimen Performing Organization Address City/State/Zipcode Phone Number [facility] [address] [place] [address] [facility] documented in this encounter Visit Diagnoses Not on filedocumented in this encounter
--- OUTSIDE RECORDS SUMMARY | 2019-05-25 03:25 | XMS REPORT | Encounter Summary ---
Author Author [facility] Organization [facility] Address Unknown Phone Unavailable Care Team Providers Care Interventional Nurse Name Role Phone Ramsey Valladares MD PCP Encounter Details Care Team Description Date Type Department Provider, Default [place] 10/27/2011 Orders Only [place], [place] Social History Date Tobacco Use Types [...] Priority Date/Time Associated Diagnosis COMPREHENSIVE METABOLIC Routine 10/27/2011 PANEL 7:30 AM TANK CAR MECHANIC documented in this encounter Results * COMPREHENSIVE METABOLIC PANEL (10/27/2011 7:30 AM TANK CAR MECHANIC) Albumin 3.9 3.4 - 4.8 g/dL [facility] Alkaline 64 29 - 122 U/L [facility] Phosphatase ALT <13 10 - 46 U/L [facility] AST 13 (L) 16 - 37 U/L [facility] Total Bilirubin 0.4 0.3 - 1.2 mg/dL [facility] BUN, Bld 17 6 - 20 mg/dL [facility] Calcium 9.1 8.7 - 10.5 mg/dL [facility] Chloride 107 99 - 111 mmol/L [facility] Creatinine 0.8 0.6 - 1.2 mg/dL [facility] Glucose 90 74 - 106 mg/dL [facility] Potassium 4.3 3.6 - 4.9 mmol/L [facility] Total Protein 6.7 6.4 - 8.3 g/dL [facility] Sodium 142 136 - 145 mmol/L [facility] CO2 33 20 - 36 mmol/L [facility] Specimen Performing Organization Address City/State/Zipcode Phone Number [facility] [address] [place], [place] [id number] [facility] documented in this encounter Visit Diagnoses Not on filedocumented in this encounter
--- OUTSIDE RECORDS SUMMARY | 2019-05-25 03:26 | XMS REPORT | Encounter Summary ---
Author Author [facility] Organization [facility] Address Unknown Phone Unavailable Care Team Providers Care Security Guard Supervisor Name Role Phone Ramsey Valladares MD PCP Encounter Details Care Team Description Date Type Department Saturnino Pepper MD 05/06/2011 [facility] - Encounter [address] 05/12/2011 [id number] [place] [address] Social History Date Tobacco Use [...] Signs Reading Time Taken Comments Vital Sign 104/69 05/12/2011 12:26 AM CDT Blood Pressure 87 05/12/2011 12:26 AM CDT Pulse 36.5 C (97.7 F) 05/12/2011 12:26 AM CDT Temperature 18 05/12/2011 12:26 AM CDT Respiratory Rate 95% 05/11/2011 4:10 PM CDT Oxygen Saturation - - Inhaled Oxygen Concentration 72.1 kg (159 lb) 05/07/2011 6:20 AM CDT Weight 175.3 cm (5' 9") 05/06/2011 11:05 AM CDT Height 23.48 05/06/2011 11:05 AM CDT Body Mass Index documented in this encounter Medications at Time of Discharge Start Date End Date Medication Sig Dispensed Refills 05/12/2011 05/22/2011 acetaminophen (TYLENOL) Take 2 30 tablet 0 325 MG tablet tablets by mouth every 6 (six) hours as needed for 10 days. 05/12/2011 06/11/2011 trazodone (DESYREL) 50 MG Take 1 tablet 30 tablet 0 tablet by mouth nightly as needed for Sleep for 30 days. 05/12/2011 12/17/2011 clonidine (CATAPRES) 0.1 Take 1 tablet 30 tablet 0 MG tablet by mouth 3 (three) times daily as needed (for sysBP>=160). 05/12/2011 03/19/2012 clopidogrel (PLAVIX) 75 Take 1 tablet 30 tablet 0 MG tablet by mouth daily. 05/12/2011 12/24/2011 divalproex (DEPAKOTE ER) Take 2 60 tablet 0 500 MG 24 hr tablet tablets by mouth nightly. 05/12/2011 12/24/2011 donepezil (ARICEPT) 5 MG Take 1 tablet 30 tablet 0 tablet by mouth nightly. 05/12/2011 03/19/2012 glyBURIDE (DIABETA) 2.5 Take 1 tablet 30 tablet 0 MG tablet by mouth daily with breakfast. 05/12/2011 03/19/2012 lisinopril Take 1 tablet 30 tablet 0 (PRINIVIL,ZESTRIL) 10 MG by mouth tablet daily. 05/12/2011 03/19/2012 metformin (GLUCOPHAGE) Take 1 tablet 60 tablet 0 500 MG tablet by mouth 2 (two) times daily with meals. 05/12/2011 12/17/2011 NOVOLOG, insulin aspart, Inject 0-28 10 mL 0 (NOVOLOG) 100 UNIT/ML Units into injection the skin 4 (four) times daily before meals and nightly. As per sliding scale 05/12/2011 03/19/2012 pravastatin (PRAVACHOL) Take 1 tablet 30 tablet 0 80 MG tablet by mouth nightly. 12/17/2011 quetiapine (SEROQUEL) 100 Take 100 mg 0 MG tabletIndications: by mouth 3 Anxiety (three) times daily as needed. Indications: Feeling Anxious 05/12/2011 12/17/2011 quetiapine (SEROQUEL) 300 Take 1 tablet 30 tablet 0 MG tablet by mouth nightly. 05/12/2011 12/17/2011 sertraline (ZOLOFT) 50 MG Take 1 tablet 30 tablet 0 tablet by mouth daily. 05/12/2011 03/19/2012 sertraline (ZOLOFT) 50 MG Take 100 mg 0 tablet by mouth daily. 05/12/2011 03/19/2012 tamsulosin (FLOMAX) 0.4 Take 1 30 capsule 0 MG CAPS capsule by mouth daily. documented as of this encounter Progress Notes * Shannan Dobbins - 05/12/2011 11:27 AM CDT Mobility Team Pt independent ambulates by self all day. Mobility observed pt as pt ambulated. No balance issue noticed at this time. * Shannan Dobbins - 05/11/2011 11:08 AM CDT Mobility Team Pt stated that he had walked earlier and wanted to get some rest before he walke d again. Floor staff informed mob tech that pt gets in plenty of walking all day . Mobility tech will try back later this day if time permits. * David Avery OT - 05/10/2011 2:32 PM CDT Occupational Therapy Progress Notes Subjective: Received orders to perform OT evaluation on 05/06/11. At first ag reeing to evaluation, but very quickly denied need for this type of testing..... "You know, you can kill people by doing this activity," and patient was directed out of OT Room back to hallway. "You can kill people like that. It's very delia gerous for all of them here." Objective: Initial SDU evaluation was initiated, but patient could not or would not demonstrate ADL skills or follow instructions. Patient became rather agita kentrell with OT's questions/queries, and decided my questions were inappropriate. Assessment: Patient demonstrates poor judgement and safety; poor awareness of w here he is and demo's desire to pace in hallway--cannot sit in chair in OT Room for longer than 2-3 minutes; demonstrates inability to initiate basic sequences of LE dressing, and became obstinate by refusing to continue with OT's activitie s. Plan: Please find portions of OT Evaluation that could be completed before patie nt attempted to stand and walk away as well as demonstration increasing agitatio n (brandishing his stick to assist vision). Treatment Time: 14:25-14:37 ( charge 1 non-timed OT evaluation) David Avrey, OTR/L * Vineet Ferrear - 05/10/2011 9:42 AM CDT 05/10/11 0900 Clinical Encounter Type Visited With Patient Routine Visit Intro (Length of stay assessment) Pt was alone in room and dozing. He woke to de alcholizer's voice. Pt did not want a visit at this time and declined mosaicist services. * Shannan Dobbins - 05/09/2011 10:04 AM CDT Mobility Team Pt up walking around day area when mobility tech showed upn tp floor. Pt having slow gait but steady while walking. Mobility tech observed pt getting up by self from chair to standing position and able to sit back down by self. Pt has walki ng stick but didn't use while mob tech was observing pt walking around. * Shannan Dobbins - 05/08/2011 2:08 PM CDT Mobility Team Nursing staff stated that pt up walking all the time. Pt observed walking from T V area to day area. Pt walks with walking stick and no other assistance. Pt had slow shuffle gait during walk. Pt didn't appear to have any balance issues at th is time. Mobility team will try back later to see if mob tech will be able to wa lk pt. * Kristen Bolanos PT - 05/07/2011 12:59 PM CDT Physical Therapy PT Daily Treatment: Patient Name: Paul Peters Subjective:PT OBSERVED PATIENT AMBULATING ABOUT THE UNIT WITH A CANE FOR THE BLI ND. PATIENT DEMONSTRATES GOOD GAIT PATTERN, GOOD BALANCE. SAFE AND EFFECTIVE USE OF HIS CANE FOR FINDING HIS WAY. Objective:PATIENT IS IND AND SAFE WITH TRANSFER AND GAIT ON THE UNIT Assessment: Plan: NO PT IS PROVIDED AT THIS TIME. DC PT KRISTEN BOLANOS PT * Cristofer Corrigan - 05/07/2011 10:31 AM CDT PT Daily Treatment: Patient Name: Paul Peters Subjective:Will inform Pt meeting goals and time frame to MOB TEAM. Objective: Assessment: Plan: Will refer to P.T. For pt to go to MOB TEAM per met dist/goals set as poss ible. * Ce Arora RN - 05/06/2011 12:38 PM CDT Pt admittted from medical with change in mental status cooperative with admissio n documented in this encounter Plan of Treatment Date/Time Name Type Priority Associated Diagnoses 05/08/2011 9:44 PM CDT EXTERNAL LAB TEST Lab 05/12/2011 12:00 AM CDT EXTERNAL LAB TEST Lab documented as of this encounter Procedures Comments Procedure Name Priority Date/Time Associated Diagnosis BEDSIDE GLUCOSE - NURSE Routine 05/12/2011 11:29 AM CDT BEDSIDE GLUCOSE - NURSE Routine 05/12/2011 6:24 AM CDT BEDSIDE GLUCOSE - NURSE Routine 05/11/2011 8:59 PM CDT BEDSIDE GLUCOSE - NURSE Routine 05/11/2011 5:31 PM CDT BEDSIDE GLUCOSE - NURSE Routine 05/11/2011 11:51 AM CDT BEDSIDE GLUCOSE - NURSE Routine 05/11/2011 6:37 AM CDT BEDSIDE GLUCOSE - NURSE Routine 05/10/2011 11:22 PM CDT BEDSIDE GLUCOSE - NURSE Routine 05/10/2011 8:18 PM CDT BEDSIDE GLUCOSE - NURSE Routine 05/10/2011 4:36 PM CDT BEDSIDE GLUCOSE - NURSE Routine 05/10/2011 11:31 AM CDT BEDSIDE GLUCOSE - NURSE Routine 05/10/2011 6:45 AM CDT BEDSIDE GLUCOSE - NURSE Routine 05/09/2011 9:07 PM CDT BEDSIDE GLUCOSE - NURSE Routine 05/09/2011 4:57 PM CDT BEDSIDE GLUCOSE - NURSE Routine 05/09/2011 12:09 PM CDT BEDSIDE GLUCOSE - NURSE Routine 05/09/2011 5:40 AM CDT BEDSIDE GLUCOSE - NURSE Routine 05/08/2011 8:31 PM CDT BEDSIDE GLUCOSE - NURSE Routine 05/08/2011 4:42 PM CDT BEDSIDE GLUCOSE - NURSE Routine 05/08/2011 11:59 AM CDT BEDSIDE GLUCOSE - NURSE Routine 05/07/2011 8:22 PM CDT BEDSIDE GLUCOSE - NURSE Routine 05/07/2011 4:50 PM CDT BEDSIDE GLUCOSE - NURSE Routine 05/07/2011 11:47 AM CDT BEDSIDE GLUCOSE - NURSE Routine 05/07/2011 6:38 AM CDT BEDSIDE GLUCOSE - NURSE Routine 05/06/2011 8:51 PM CDT BEDSIDE GLUCOSE - NURSE Routine 05/06/2011 4:51 PM CDT RPR Routine 05/06/2011 2:04 PM CDT VITAMIN B12 Routine 05/06/2011 2:04 PM CDT documented in this encounter Results * BEDSIDE GLUCOSE - NURSE (05/12/2011 11:29 AM CDT) Bedside Glucose 187 (H)Comment: Notify Nurse 70 - 105 mg/dL [facility] - Nurse Specimen Performing Organization Address City/State/Zipcode Phone Number [facility] [address] [place] [address] [phone] [facility] * BEDSIDE GLUCOSE - NURSE (05/12/2011 6:24 AM CDT) Bedside Glucose 104Comment: Notify Nurse 70 - 105 mg/dL [facility] - Nurse Specimen Performing Organization Address City/[facility] Phone Number [facility] [address] [place] [phone] [facility] * BEDSIDE GLUCOSE - NURSE (05/11/2011 8:59 PM CDT) Bedside Glucose 155 (H)Comment: Notify Nurse 70 - 105 mg/dL [facility] - Nurse Specimen Performing Organization Address [facility] Phone Number [facility] [address] [place] [phone] [facility] * BEDSIDE GLUCOSE - NURSE (05/11/2011 5:31 PM CDT) Bedside Glucose 111 (H)Comment: Notify Nurse 70 - 105 mg/dL [facility] - Nurse Specimen Performing Organization Address City/[facility] Phone Number [facility] [address] [place] [phone] [facility] * BEDSIDE GLUCOSE - NURSE (05/11/2011 11:51 AM CDT) Bedside Glucose 113 (H) 70 - 105 mg/dL [facility] - Nurse Specimen Performing Organization Address [facility] [place] Number [facility] [address] [place] [phone] [facility] * BEDSIDE GLUCOSE - NURSE (05/11/2011 6:37 AM CDT) Bedside Glucose 111 (H)Comment: Notify Nurse 70 - 105 mg/dL [facility] - Nurse Specimen Performing Organization Address [facility] Phone Number [facility] [address] [place] [phone] [facility] * BEDSIDE GLUCOSE - NURSE (05/10/2011 11:22 PM CDT) Bedside Glucose 140 (H)Comment: Notify Nurse 70 - 105 mg/dL [facility] - Nurse Specimen Performing Organization Address City/State/[facility] Phone Number [facility] [address] [place] [phone] [facility] * BEDSIDE GLUCOSE - NURSE (05/10/2011 8:18 PM CDT) Bedside Glucose 69 (L)Comment: Notify Nurse 70 - 105 mg/dL [facility] - Nurse Specimen Performing Organization Address [facility] Phone Number [facility] [address] [place] [address] [phone] [facility] * BEDSIDE GLUCOSE - NURSE (05/10/2011 4:36 PM CDT) Bedside Glucose 199 (H)Comment: Notify Nurse 70 - 105 mg/dL [facility] - Nurse Specimen Performing Organization Address City/[facility] Phone Number [facility] [address] [place] [address] [phone] [facility] * BEDSIDE GLUCOSE - NURSE (05/10/2011 11:31 AM CDT) Bedside Glucose 72Comment: Notify Nurse 70 - 105 mg/dL [facility] - Nurse Specimen Performing Organization Address [facility] Phone Number [facility] [address] [place] [address] [phone] [facility] * BEDSIDE GLUCOSE - NURSE (05/10/2011 6:45 AM CDT) Bedside Glucose 87Comment: Notify Nurse 70 - 105 mg/dL [facility] - Nurse Specimen Performing Organization Address City/[facility] Phone Number [facility] [address] [place] [phone] [facility] * BEDSIDE GLUCOSE - NURSE (05/09/2011 9:07 PM CDT) Bedside Glucose 97Comment: Notify Nurse 70 - 105 mg/dL [facility] - Nurse Specimen Performing Organization Address [facility] Phone Number [facility] [address] [place] [address] [phone] [facility] * BEDSIDE GLUCOSE - NURSE (05/09/2011 4:57 PM CDT) Bedside Glucose 106 (H)Comment: Notify Nurse 70 - 105 mg/dL [facility] - Nurse Specimen Performing Organization Address City/[facility]/Zipcode Phone Number [facility] [address] [place] [phone] [facility] * BEDSIDE GLUCOSE - NURSE (05/09/2011 12:09 PM CDT) Bedside Glucose 65 (L)Comment: Notify Nurse 70 - 105 mg/dL [facility] - Nurse Specimen Performing Organization Address City/State/[facility] Phone Number [facility] [address] [place] [phone] [facility] * BEDSIDE GLUCOSE - NURSE (05/09/2011 5:40 AM CDT) Bedside Glucose 100Comment: Notify Nurse 70 - 105 mg/dL [facility] - Nurse Specimen Performing Organization Address City/[facility] Phone Number [facility] [address] [place] [address] [phone] [facility] * BEDSIDE GLUCOSE - NURSE (05/08/2011 8:31 PM CDT) Bedside Glucose 138 (H)Comment: Notify Nurse 70 - 105 mg/dL [facility] - Nurse Specimen Performing Organization Address City/[facility] Phone Number [facility] [address] [place] [phone] [facility] * BEDSIDE GLUCOSE - NURSE (05/08/2011 4:42 PM CDT) Bedside Glucose 208 (H)Comment: Notify Nurse 70 - 105 mg/dL [facility] - Nurse Specimen Performing Organization Address City/[facility] Phone Number [facility] [address] [place] [address] [phone] [facility] * BEDSIDE GLUCOSE - NURSE (05/08/2011 11:59 AM CDT) Bedside Glucose 141 (H)Comment: Notify Nurse 70 - 105 mg/dL [facility] - Nurse Specimen Performing Organization Address City/[facility]/Zipcode Phone Number [facility] [address] [place] [phone] [facility] * BEDSIDE GLUCOSE - NURSE (05/07/2011 8:22 PM CDT) Bedside Glucose 223 (H) 70 - 105 mg/dL [facility] - Nurse Specimen Performing Organization Address [facility] Phone Number [facility] [address] [place] [phone] [facility] * BEDSIDE GLUCOSE - NURSE (05/07/2011 4:50 PM CDT) Bedside Glucose 115 (H)Comment: Notify Nurse 70 - 105 mg/dL [facility] - Nurse Specimen Performing Organization Address [facility] Phone Number [facility] [address] [place] [address] [phone] [facility] * BEDSIDE GLUCOSE - NURSE (05/07/2011 11:47 AM CDT) Bedside Glucose 241 (H)Comment: Notify Nurse 70 - 105 mg/dL [facility] - Nurse Specimen Performing Organization Address [facility] Phone Number [facility] [address] [place] [address] [phone] [facility] * BEDSIDE GLUCOSE - NURSE (05/07/2011 6:38 AM CDT) Bedside Glucose 116 (H)Comment: Notify Nurse 70 - 105 mg/dL [facility] - Nurse Specimen Performing Organization Address [facility] Phone Number [facility] [address] [place] [address] [phone] [facility] * BEDSIDE GLUCOSE - NURSE (05/06/2011 8:51 PM CDT) Bedside Glucose 158 (H)Comment: Notify Nurse 70 - 105 mg/dL [facility] - Nurse Specimen Performing Organization Address [facility] Phone Number [facility] [address] [place] [address] [phone] [facility] * BEDSIDE GLUCOSE - NURSE (05/06/2011 4:51 PM CDT) Bedside Glucose 169 (H)Comment: Notify Nurse 70 - 105 mg/dL [facility] - Nurse Specimen Performing Organization Address [facility] Phone Number [facility] [address] [place] [address] [facility] * Vitamin B12 (05/06/2011 2:04 PM CDT) Vitamin B-12 851 211 - 911 pg/mL [facility] Comment: Vitamin B-12 Reference Range: Normal =211-911 pg/mL Deficient=32 -246 pg/mL Specimen Blood specimen (specimen) Performing Organization Address [facility] Phone Number [facility] [address] [place] [address] [facility] * RPR (05/06/2011 2:04 PM CDT) RPR NON-REACTIVE Non-Reactive [facility] Specimen Blood specimen (specimen) Performing Organization Address [facility] Phone Number [facility] [address] [place] [address] [facility] documented in this encounter Visit Diagnoses Diagnosis Vascular dementia (HCC) - Primary Vascular dementia, uncomplicated Bipolar affective (HCC) Bipolar disorder, unspecified documented in this encounter Administered Medications Action Date Dose Rate Site Medication Order MAR Action 05/11/2011 11:12 PM CDT 650 mg acetaminophen (TYLENOL) tablet 650 mg Given 650 mg EVERY 6 HOURS PRN, Oral, Mild Pain, Starting Wed05/06/11 at 1357, Maximum dose of acetaminophen is 4000 mg for adults (2600 mg for < 12 yr olds) from all sources in 24 hours., 05/12/2011 9:30 AM CDT 75 mg clopidogrel (PLAVIX) tablet 75 mg Given 75 mg DAILY, Oral, First dose on Wed05/06/11 at 1245 75 mg Given 05/11/2011 9:00 AM CDT 75 mg Given 05/10/2011 8:50 AM CDT 05/11/2011 10:35 PM CDT 1,000 mg divalproex (DEPAKOTE ER) 24 hr tablet Given 1,000 mg 1,000 mg BEDTIME, Oral, First dose on Wed05/06/11 at 2100 1,000 mg Given 05/10/2011 9:41 PM CDT 1,000 mg Given 05/09/2011 9:33 PM CDT 05/11/2011 10:35 PM CDT 5 mg donepezil (ARICEPT) tablet 5 mg Given 5 mg BEDTIME, Oral, First dose on Wed05/06/11 at 2100 5 mg Given 05/10/2011 9:41 PM CDT 5 mg Given 05/09/2011 9:33 PM CDT 05/12/2011 9:00 AM CDT 2.5 mg glyBURIDE (DIABETA) tablet 2.5 mg Given 2.5 mg DAILY WITH BREAKFAST, Oral, First dose on Wed05/07/11 at 0800, Hold for BS<85, 2.5 mg Given 05/11/2011 9:00 AM CDT 2.5 mg Given 05/10/2011 8:50 AM CDT 05/12/2011 9:30 AM CDT 10 mg lisinopril (PRINIVIL,ZESTRIL) tablet 10 Given mg 10 mg DAILY, Oral, First dose on Wed05/06/11 at 1245, Hold for SBP<110, 10 mg Given 05/10/2011 8:50 AM CDT 10 mg Given 05/09/2011 8:30 AM CDT 05/12/2011 9:00 AM CDT 500 mg metformin (GLUCOPHAGE) tablet 500 mg Given 500 mg 2 TIMES DAILY WITH MEALS, Oral, First dose on Wed05/06/11 at 1700 500 mg Given 05/11/2011 5:20 PM CDT 500 mg Given 05/11/2011 9:00 AM CDT 05/11/2011 10:35 PM CDT 1 Units NOVOLOG (insulin aspart) (NOVOLOG) Given injection 0-28 Units 0-28 Units 4 TIMES DAILY BEFORE MEALS & NIGHTLY, Subcutaneous, First dose on Wed05/06/11 at 1245, High-alert Medication, 2 Units Abdominal Tissue Given 05/10/2011 6:00 PM CDT 1 Units Given 05/08/2011 9:00 PM CDT 05/10/2011 3:10 PM CDT 10 mg olanzapine zydis (ZYPREXA) Given disintegrating tablet 10 mg 10 mg 2 TIMES DAILY PRN, Sublingual, Agitation, severe, Starting Wed05/06/11 at 1357 10 mg Given 05/06/2011 11:00 PM CDT 05/11/2011 10:36 PM CDT 80 mg pravastatin (PRAVACHOL) tablet 80 mg Given 80 mg BEDTIME, Oral, First dose on Wed05/06/11 at 2100 80 mg Given 05/10/2011 9:42 PM CDT 80 mg Given 05/09/2011 9:33 PM CDT 05/07/2011 9:00 PM CDT 100 mg quetiapine (SEROQUEL) tablet 100 mg Given 100 mg BEDTIME, Oral, First dose on Wed05/06/11 at 2100 100 mg Given 05/06/2011 9:40 PM CDT 05/11/2011 10:36 PM CDT 300 mg quetiapine (SEROQUEL) tablet 300 mg Given 300 mg BEDTIME, Oral, First dose on Wed05/08/11 at 2100 300 mg Given 05/10/2011 9:42 PM CDT 300 mg Given 05/09/2011 9:34 PM CDT 05/12/2011 9:30 AM CDT 0.4 mg tamsulosin (FLOMAX) capsule 0.4 mg Given 0.4 mg DAILY, Oral, First dose on Wed05/06/11 at 1245 0.4 mg Given 05/11/2011 9:00 AM CDT 0.4 mg Given 05/10/2011 8:50 AM CDT 05/06/2011 11:00 PM CDT 50 mg trazodone (DESYREL) tablet 50 mg Given 50 mg BEDTIME PRN, Oral, Sleep, Starting Wed05/06/11 at 1356, May repeat x1 dose dose prior to 0100, documented in this encounter
--- OUTSIDE RECORDS SUMMARY | 2019-05-25 03:27 | XMS REPORT | Encounter Summary ---
Author Author [facility] Organization [facility] Address Unknown Phone Unavailable Care Team Providers Care Transit Driver Name Role Phone Ramsey Valladares MD PCP Reason for Visit * Reason Comments Altered Mental Status Encounter Details Care Team Description Date Type Department Ap Raya [address] [place], [place] [address] Nick Carson MD [address] [place], [place] [address] Brandon Becker, [address] [place], [place] [id number] Altered mental status 04/23/2011 [facility] - Encounter [address] 05/06/2011 [id number] [place], [place] [id number] Social History Date Tobacco Use Types Packs/Day [...] Signs Reading Time Taken Comments Vital Sign 132/92 05/06/2011 4:38 AM CDT Blood Pressure 81 05/06/2011 4:38 AM CDT Pulse 36 C (96.8 F) 05/06/2011 4:38 AM CDT Temperature 20 05/06/2011 4:38 AM CDT Respiratory Rate 98% 05/06/2011 4:38 AM CDT Oxygen Saturation - - Inhaled Oxygen Concentration 73.1 kg (161 lb 3.2 oz) 05/06/2011 4:38 AM CDT Weight - - Height 23.13 06/25/2009 2:59 PM CDT Body Mass Index documented in this encounter Discharge Instructions * Instructions* Kira Garcia, RN - 05/05/2011 Stroke (Cerebrovascular Accident) A stroke is a sudden of brain tissue. It is a neurologic emergency. A stro ke can cause permanent loss of function of the central nervous system (brain). I f the symptoms of a stroke end without complications in 24 hours, it is diagnose d as a transient ischemic attack (TIA). If the symptoms are not resolved within 24 hours, it is defined as a stroke. CAUSES A stroke is caused by a decrease of oxygen supply to an area of your brain. It i s usually the result of a small blood clot or hardening of the arteries. Blockag es in, or damage to, the carotid arteries leading to the brain can also cause a stroke. Bleeding in the brain can cause, or accompany, a stroke. SYMPTOMS These symptoms usually develop suddenly (or may be newly present upon awakening from sleep): Loss of vision. Double vision. Confusion. Numbness or weakness on one side of the face or body. Inability to speak (aphasia). DIAGNOSIS Your caregiver can often determine the presence or absence of a stroke based on your symptoms, history and examination. A CT scan of the brain is usually perfor med to confirm the stroke, look for causes and determine the severity. Other maria teresa ts may be done to find the cause of the stroke, including: An EKG and heart monitoring. An ultrasound evaluation of the heart (echocardiogram). An ultrasound evaluation of your carotid arteries. Determination of blood oxygen level and blood tests. PREVENTION The likelihood of a stroke can be decreased by appropriate treatment of high blo od pressure, high cholesterol, diabetes and by stopping smoking. RISK FACTORS Hypertension. High cholesterol. Diabetes. An abnormal heart rhythm (Atrial fibrillation). Age over 40. Family history of stroke or heart attack. Personal history of blood clots. Smoking. Use of illegal drugs, especially cocaine and methamphetamine. Oral contraceptives, especially in combination with smoking. TREATMENT TIME IS OF THE ESSENCE! Medications to dissolve a blood clot can only be used wi thin 4.5 hours of the onset of symptoms. After the 4.5 hour window has passed, t reatment may include rest, oxygen, intravenous fluids and medications to thin th e blood (to prevent another stroke). Treatment of stroke depends on duration of symptoms, severity and cause. Medications and diet may be used to address diabet es, high blood pressure and other risk factors. Physical, speech and occupationa l therapists will assess you and work to improve any functions impaired by the s troke. Measures will be taken to prevent short-term and long-term complications, including aspiration pneumonia, blood clots in the legs, bedsores and falls. HOME CARE INSTRUCTIONS Care at home after a stroke can be complicated. MedicationsBlood thinners may be used to prevent another stroke. Blood thi nners need to be used exactly as instructed. Medications may also be used to con trol risk factors for a stroke. Be sure you understand all your medication instr uctions. Physical, occupational and speech therapyOngoing therapy is often necessar y to maximize recovery after a stroke. If you have been advised to use a walker or a cane, use it at all times. Be sure you keep your therapy appointments. DietCertain diets may be prescribed to address high blood pressure, high c holesterol or diabetes. Foods may need to be a special consistency (soft, pureed , small bites) to avoid aspirating or choking. Home safetyA safe home environment is important to reduce the risk of fall s. Your caregiver may arrange for specialists to evaluate your home. Grab bars i n the bedroom and bathroom are often important. Your caregiver may arrange for s pecial equipment to be used at home, such as raised toilets and a seat for the s hower. Follow all instructions for follow-up with your caregiver. This includes any referrals, physical therapy and rehabilitation. Any delay in obtaining necessary care could result in a delay or failure of the damage from the stroke to heal p debbi. Proper treatment also prevents another stroke from occurring. SEEK IMMEDIATE MEDICAL CARE IF: You develop any problems with speaking. You develop weakness or numbness in any part of the body. You feel faint or pass out. You develop a severe headache. You have a problem walking or keeping your balance. You have an oral temperature above 102 F (38.9 C), not controlled by medi cine. You are coughing or having difficulty breathing. You have new chest pain, angina or an irregular heart beat. ANY OF THESE SYMPTOMS MAY REPRESENT A SERIOUS PROBLEM THAT IS AN EMERGENCY. Do n ot wait to see if the symptoms will go away. Get medical help at once. Call your local emergency services (911 in the [place] DO NOT drive yourself to the hospit al. Document Released: 10/18/2006 Document Re-Released: 11/09/2010 ExitCare Patient Information [address] [place], [place] [address]Usound [facility]. documented in this encounter Medications [...] (three) times daily as needed (for sysBP>=160). 05/05/2011 05/12/2011 clopidogrel (PLAVIX) 75 Take 1 tablet 30 tablet 12 MG tablet by mouth daily. 05/12/2011 03/19/2012 clopidogrel (PLAVIX) 75 Take 1 tablet 30 tablet 0 MG tablet by mouth daily. 05/05/2011 05/12/2011 divalproex (DEPAKOTE ER) Take 2 60 tablet 12 500 MG 24 hr tablet tablets by mouth daily. 05/12/2011 12/24/2011 divalproex (DEPAKOTE ER) Take 2 60 tablet 0 500 MG 24 hr tablet tablets by mouth nightly. 05/12/2011 12/24/2011 donepezil (ARICEPT) 5 MG Take 1 tablet 30 tablet 0 tablet by mouth nightly. 05/12/2011 03/19/2012 glyBURIDE (DIABETA) 2.5 Take 1 tablet 30 tablet 0 MG tablet by mouth daily with breakfast. 05/05/2011 05/12/2011 glyBURIDE (DIABETA) 5 MG Take 0.5 15 tablet 12 tablet tablets by mouth daily with breakfast. 05/05/2011 05/12/2011 lisinopril Take 1 tablet 30 tablet 12 (PRINIVIL,ZESTRIL) 10 MG by mouth tablet daily. 05/12/2011 03/19/2012 lisinopril Take 1 tablet 30 tablet 0 (PRINIVIL,ZESTRIL) 10 MG by mouth tablet daily. 05/05/2011 05/12/2011 metformin (GLUCOPHAGE) Take 1 tablet 60 tablet 12 500 MG tablet by mouth 2 (two) times daily with meals. 05/12/2011 03/19/2012 metformin (GLUCOPHAGE) Take 1 tablet 60 tablet 0 500 MG tablet by mouth 2 (two) times daily with meals. 05/05/2011 05/12/2011 NOVOLOG, insulin aspart, Inject 0-28 10 mL 0 (NOVOLOG) 100 UNIT/ML Units into injection the skin 4 (four) times daily before meals and nightly. 05/12/2011 12/17/2011 NOVOLOG, insulin aspart, Inject 0-28 10 mL 0 (NOVOLOG) 100 UNIT/ML Units into injection the skin 4 (four) times daily before meals and nightly. As per sliding scale 05/05/2011 05/12/2011 pravastatin (PRAVACHOL) Take 1 tablet 30 tablet 12 80 MG tablet by mouth nightly. 05/12/2011 03/19/2012 pravastatin (PRAVACHOL) Take 1 tablet 30 tablet 0 80 MG tablet by mouth nightly. 05/12/2011 12/17/2011 quetiapine (SEROQUEL) 300 Take 1 tablet 30 tablet 0 MG tablet by mouth nightly. 05/12/2011 12/17/2011 sertraline (ZOLOFT) 50 MG Take 1 tablet 30 tablet 0 tablet by mouth daily. 05/05/2011 05/12/2011 tamsulosin (FLOMAX) 0.4 Take 1 30 capsule 0 MG CAPS capsule by mouth daily. 05/12/2011 03/19/2012 tamsulosin (FLOMAX) 0.4 Take 1 30 capsule 0 MG CAPS capsule by mouth daily. documented as of this encounter Progress Notes * Gregory Narvaez - 05/06/2011 9:09 AM CDT PT Daily Treatment: Patient Name: Paul Peters Subjective:Nursing states that the patient has been up walking a lot today. Lea ent denied pain but stated that he was getting tired. Objective:Charge=1 gait. Time of gijkfldib=[id number]. 10 minutes. Patient was standing up in the room with nursing upon start of therapy. Patient was gait trained approx 250 feet with no assistive device and contact guard assi st of 1 with verbal cues for direction due to blindness. Patient attempted march ing in place and arm swings. Patient returned to his room and sat in the chair t o eat breakfast. Assessment:Patient tolerated treatment well. Decreased bilateral step length and absent arm swing with the patient holding the right elbow in flexion. Plan: will alert RPT of patient's status. rGegory Narvaez CPTA * Hermilo Richmond Jorje, OT - 05/05/2011 4:15 PM CDT OCCUPATIONAL THERAPY PROGRESS NOTE SUBJECTIVE: nursing okay'ed an occupational therapy treatment. Sitter was at th e patient's bedside. The patient agreed to occupational therapy treatment. The patient stated he had "no pain." Patient's goal: not stated. Patient persever ated on the word "pheromones" during the occupational therapy treatment. OBJECTIVE: Treatment time - [id number] Charges - activities of daily living x 2 (24 minutes) The patient completed supine to sit on the edge of the bed with stand by assist. The patient would stand without waiting for directions. The patient then walk ed with hand held assist to the bathroom. The patient toilet transferred with h and held assist. The patient toileted with stand by assist. The patient stood at the sink to wash hands with hand held assist. The patient required extra maryellen e to complete the toileting and grooming tasks. The patient completed lower bod y dressing for doffing/donning socks with minimum assist/steadying assist for si tting balance on the edge of the bed. The patient was reoriented to time, place , and situation. The patient perseverated on the word "pheromones" when therapi st attempted to reorient the patient. The patient stated that he is tired of pe ople coming into his room and asking "silly questions." The patient then began to pace around the room with the sitter at his side. ASSESSMENT: occupational therapy treatment tolerated fair. The patient has defi cits in safe sequencing, attention to task, and orientation. The patient also e xhibits impulsiveness during standing activities and functional transfers. PLAN: nursing stated patient will be seen for a Senior Diagnostic Unit evaluatio n. Continue with the plan of care to address the patient's goals for occupation al therapy. Richmond Akhtar, BAYRON, OTR/L, CLT-MANDO 05/05/2011 * Teresa Muller RN - 05/05/2011 3:27 PM CDT Communication with Dr. Becker. SDU to evaluate patient today. Dc plan pending. * Stacy Sharp CCC-DIMENSIONAL INTEGRATION ENGINEER - 05/05/2011 3:07 PM CDT S: Pt seen at 1450. Nursing stated that pt was going to be transferred to SDU to day. Pt had 1:1 sitter. Sitter stated that pt continued to try to get out of bed and walk around. O: Pt unable to follow one-step directions (0% accuracy) with max cues (hand-ove r-hand) provided. Pt stated "no." multiple times during this task. Pt independently completed automatic speech tasks (count to 10 and months of the year) 25% of the time. Pt was able to say his ABC's with no prompting. For the other 3 automatic speech tasks, pt needed minimal degrees of prompting. For exam ple:clinician would initiate saying the months of the year (Jaunuary....)and the n pt finished the automatic speech task. When pt was asked to count to five the pt first counted to 10 in israeli but when prompted by the clinician the pt coun kentrell to 5 in french. Pt answered yes/no questions with 60% accuracy. Pt would answer yes/no questions but pt is unreliable in answering the questions correctly. A: Pt continues to present with severe receptive and expressive language deficit s; however, pt increased his accuracy for completing automatic speech tasks (cou nt to five). However, pt was often disorganized ( counted to 10 in israeli) an d perseverative ( would continue saying the months of the year over and over aga in, even when redirected). Pt's accuracy for answering yes/no questions was commensurate with previous perf ormance. Pt decreased his accuracy for following one-step directions (from 20% t o 0%). P: Continue with POC when pt is transferred to SDU. Samantha SANDERSON DIMENSIONAL INTEGRATION ENGINEER-S Stacy Sharp M.A. CCC-DIMENSIONAL INTEGRATION ENGINEER * Stacy Sharp CCC-DIMENSIONAL INTEGRATION ENGINEER - 05/05/2011 11:56 AM CDT S: Pt seen at 1105. Nursing stated that pt may be transferred to SDU today. Pt asleep in bed. Pt stated "no" when clinician asked pt to sit on the side of t he bed. When pt cued to sit on the side of the bed again, pt then sat up. Pt shanta l 1:1 sitter. 1:1 sitter stated that pt continues to try to get out of bed and w alk around. O: Pt unable to follow one-step directions (20% accuracy). Pt tried to lay down during this task and said "no." Pt perseverated on saying "I am [place]." artiein cari this task. Pt answered yes/no questions with 60% accuracy. Pt would answer the yes/no quest ions but pt is unreliable in answering the questions correctly. Pt completed automatic speech tasks (count to 10) with 0% accuracy despite cuein g from the clinician. When cued to count to 10 by the clinician (i.e., 1..2...) the pt stated 5. Pt then stated "no." A: Pt continues to present with severe receptive and expressive language deficit s. Pt continues to be unreliable with answering yes/no questions and following 1 step directions. During the session, pt continually tried to lay down and/or get out of bed when asked a question. P: Continue with POC when/if pt is transferred to SDU. Samantha SANDERSON DIMENSIONAL INTEGRATION ENGINEER-S Stacy Sharp M.A. CCC-DIMENSIONAL INTEGRATION ENGINEER * Whitney Sanchez CPTA - 05/05/2011 9:12 AM CDT PT Daily Treatment: Patient Name: Paul Peters Subjective: 1st attempt, pt in chair with 1:1 sitter feeding him. 2nd attempt , pt back to bed. Nurse and pt agreeable to therapy. Pt lacking in conversatio n during treatment. Objective: 8:56-9:35 Charge: 1 unit gait x 2. [place] pine to sit with sba. Socks donned, but pt not following cues for this task. S it to stand with cga x 2. Gait trained with min PATTERN LEASE INSPECTOR x 250' and student assistin g with IV pole. Pt returned to room and transferred into chair following cues, but needing them repeated twice. Pt left with 1:1 sitter in room. Assessment: Slow to respond to directional cues. Pt cooperative today and need ing only assist x 1, but may need 2:1 assist future treatments depending upon hi s level of cooperation. Plan: Continue per POC. PORSCHE Franklin * Stacy Sharp, [facility]-DIMENSIONAL INTEGRATION ENGINEER - 05/04/2011 12:43 PM CDT S: Pt seen at 1210. Pt with 1:1 sitter who reports he slept only 2 hrs last ni ght. Pt is up and down all the time. Pt given Zyprexa just prior to speech ses yoselin. O: Pt unable to follow 1-2 step directions but is responsive to encouragement t o sit down. Does answer yes/no questions with an actual "yes" or "no" but is no t answering them reliably. Unable to name object based on touch. Would make an attempt to answer sim ple, personal questions and he would answer yes or no (known to not be reliable) and would say "I don't know." Discussed at length with PCT/1:1 sitter about pt's deficits. Need to keep himself busy (folding a washcloth over and over, going for a walk), decreasing rate of instructions, make info more simple, decrease level of loudness of our v oices. A: Pt with severe expressive and receptive deficits. However, his level of luis fernando rtness has significantly increased since 05/01. Pt's lack of vision must have exi sted prior to hospitalization (pt has a walking stick) P: Continue tx efforts. Stacy Sharp M.A. CCC-DIMENSIONAL INTEGRATION ENGINEER * Whitney Sanchez CPTA - 05/04/2011 9:46 AM CDT Pt found with 1:1 sitter who reports that pt has been up several times this morn ing. States he has walked to the bathroom and also to the nursing desk. Nurse deferred treatment at this time as pt is currently resting. Pt later observed i n a.m. Ambulating approx 300' from his room with 1:1 sitter and no A.D. * Terra Madison PT - 05/03/2011 4:06 PM CDT PT Daily Treatment: Patient Name: Paul Peters Subjective: Nurse states to hold therapy, patient sleeping and is very confused . Objective: 1445 Assessment: Plan: check back tomorrow Terra Madison, PT * Jennifer Sabillon - 05/02/2011 1:30 PM CDT PT Daily Treatment: Patient Name: Paul Peters Subjective: Spoke with nursing, reports patient having increased confusion and a gitation at this time. Suggest not working with patient. He has been up to bat hroom with assist from staff. Objective:N/A Assessment:N/A Plan: Will continue POC. PORSCHE Shaw * Richmond Akhtar OT - 05/02/2011 10:41 AM CDT Initial Occupational Therapy Evaluation Patient's name: Paul Peters Diagnosis: Patient admitted on 04/23/2011 with the diagnosis of acute delirium. Past Medical History Diagnosis Date CVA (cerebral infarction) COPD (chronic obstructive pulmonary disease) Diabetes mellitus Hypertension Stroke Bipolar disorder Past Surgical History Procedure Date Eye surgery Patient Active Problem List Diagnoses Code Acute delirium 780.09EL DM (diabetes mellitus) 250.00BV Atherosclerotic cerebrovascular disease 437.0H HTN (hypertension) 401.9AF A Computed tomography of the head revealed an impression of moderate brain atrop hy at the upper limits of normal for the patient's age and no acute intracranial finding. A magnetic resonance imaging revealed acute or recent ischemia/infarct ion of the left posterior parietal occipital lobe, moderate parenchymal volume l oss, moderate nonspecific white matter disease likely related to chronic microva scular ischemic change, old infarct in the left occipital lobe and left cerebell ar hemisphere with old lacunar infarcts in the right basal ganglia. The patient' s NIH was 13. Per CVA protocol, occupational therapy was ordered. Patient has a history of cortical blindness and the patient can become agitated easily. The patient has a history of multiple cerebrovascular accidents with lef t sided weakness, bipolar disorder, and polysubstance abuse. Precautions: patient has a sitter and mittens. Mental status: patient unable to provide any information about his prior level o f function or home situation. The patient was found wandering the streets prior to his hospitalization. Vision: cortical blindness Hearing appears to be within functional limits. Speech: patient is understandable. Patient perseverates, "You're not good." And the patient did not answer simple yes/no questions. Patient followed simple one step directions 25% of the time and required hand ov er hand assist x 2 for completion of toileting and functional mobility in the ro om. 05/02/11 1010 PT Last Visit PT Received On 05/02/11 General On set of problem 04/23/11 Treatment start date 05/02/11 Home Living Type of Home (unknown; not stated by patient) Home Layout (unknown; not stated by patient) Prior Function Lives With (unknown; not stated by patient) ADL Grooming Assistance Not performed UE Dressing Assistance Maximal UE Dressing Deficit Setup;Steadying;Verbal cueing;Supervision/Safety;Increased t martha to complete;Thread RUE;Thread LUE;Other (comment) (Hand over hand assist x 2 required) LE Dressing Assistance Not performed Toileting Assistance (device) Comment (other) (Hand held assist x 2 required) Toileting Deficit Setup;Steadying;Verbal cueing;Supervison/Safety;Increased time to complete Activity Tolerance Endurance Fatigues easily with ADL functions Sitting Balance Sits without UE support up to 30 sec Vision - Basic Assessment Current Vision Other (comment) Patient Visual Report (coritcal blindness) Cognition Overall Cognitive Status Impaired Arousal/Alertness Inconsistent responses to stimuli Memory Decreased short term memory;Decreased meterman memory;Decreased recall o f recent events;Decreased recall of biographical information Orientation Level Disoriented X4;Confused Safety Judgement Decreased awareness of need for safety Awareness of Errors Decreased awareness of errors Deficits Decreased awareness of deficits Problem Solving Assistance required to implement solutions Assessment Assessment Decreased ADL status;Decreased Safe judgement during ADL;Decreased co gnition;Decreased self-care trans Prognosis Fair;24 hour supervision recommended;Patient has multiple medical comp lication Plan Treatment Interventions ADL retraining;Functional transfer training;Cognitive re orientation;Patient/Family training Progress Slow progress, cognitive deficits OT Frequency 2-3x/wk Requires OT Follow Up Yes Both upper extremity range of motion is functional for elbows and shoulders. Fo rmal manual muscle testing not done due to patient's inability to follow directi ons. It appears, however, that the patient has at least 3/5 strength throughout both upper extremities. Goals for occupational Therapy: 1. Patient will follow simple one step directions at least 50% of the time durin g upper extremity dressing tasks. 2. Patient will follow simple one step directions at least 50% of the time durin g toileting. 3. Patient will follow simple one step directions at least 50% of the time durin g simple grooming tasks. BAYRON Collins, OTR/L, CLT-MANDO [phone] Charge=one non-timed occupational therapy evaluation One activities of daily living (8 minutes) 05/02/2011 * Camila Sheets V - 05/01/2011 5:[address] Nutrition Screen Note: Pt appears to be adequately nourished prior to admission. Pt passed swallow catalina l. Per Speech. BMI:There is no height on file to calculate BMI. Patient Active Problem List Diagnoses Code Acute delirium 780.09EL DM (diabetes mellitus) 250.00BV Atherosclerotic cerebrovascular disease 437.0H HTN (hypertension) 401.9AF Significant Labs: Albumin Date Value Range Status 04/30/2011 4.5 3.4-4.8 (g/dL) Final Current Diet: CHO-controlled, Cardiac P.O. Intake: 50-90% Reviewed EMR, no further nutrition needs identified at this time. RD available per protocol. Camila Sheets, RD, LD [facility] Clinical Dietitian #[id number] * Stacy Sharp, [facility]-DIMENSIONAL INTEGRATION ENGINEER - 05/01/2011 4:37 PM CDT Bedside Swallow Eval S: Pt seen at 1500. Pt admitted on 04/23 with a dx of acute delirium. CT of head revealed Impression moderate brain atrophy is at the upper limits of normal for the patient's age and no acute intracranial finding. MRI revealed acute or recen t ischemia/infarction in the left posterior parietal occipital lobe, moderate pa renchymal volume loss, moderate nonspecific white matter disease is likely relat ed to chronic microvascular ischemic change, old infarct in the left occipital l obe and left cerebellar hemisphere with old lacunar infarcts in the right basal ganglia. Pt's NIH was 13 and he passed his swallow screen. Per CVA protocol, spe ech therapy was consulted. Past Medical History Diagnosis Date CVA (cerebral infarction) COPD (chronic obstructive pulmonary disease) Diabetes mellitus Hypertension Stroke Bipolar disorder Pt in bed with mitts on and a 1:1 sitter. Nursing stated that pt can become very agitated. Also stated that pt was able to eat his lunch without choking. However, the pt does not recognize food vs. Other substances such as a plate and will try to eat items that are not are inetable. Nursing also stated that pt can not see. O: Pt lethargic but could be slightly aroused for short periods of time. Pt does not open his eyes unless instructed to. Pt screened with trials of thin liquid (cup). Pt did not cough or choke. ALPS completed with the following results: Listening 12/11. Pt responded to his name. Pt can not follow one step directions consistently. Pt perseverated on the word "help" during this subtest. Talkin11/10. Pt able to imitate simple sounds. Pt unable to complete automatic speech tasks (count to 5). Pt continued to perseverate on the word "help" and "s oup." Readin/10. While pt did say "Yes, Lambertus." when looking at his name and p t did not focus on the target; therefore, it is determined that pt did not actua lly focus/look at his written name. A: Pt did not show s/s of aspiration. Pt presents with severe expressive and rec eptive language deficits. Pt perseverated on the word "help" and "soup" througho ut the eval. P: 1) regular diet with regular liquids, encourage finger foods 2) pt need 1:1 a ssistance with eating due to restraints and cognitive status, 3) Speech therapy to address the following goals: 1) In five days, pt will follow one step directions with 75% accuracy with moder ate cues. 2) In five days, pt will complete the Wydell's yes/no test with 75% accuracy wit h no cues. 3) In five days, pt will complete automatic speech tasks (count to 5) with 75% a ccuracy with minimal cues. Samantha Garnica BS DIMENSIONAL INTEGRATION ENGINEER-S Stacy Sharp M.A. CCC-DIMENSIONAL INTEGRATION ENGINEER * Priscila Torres OT - 05/01/2011 2:12 PM CDT NSG REPORTS PATIENT NOT ABLE TO FOLLOW DIRECTIONS AT THIS TIME. NSG ASKS THAT OT HOLD THERAPY AT THIS TIME. WILL ATTEMPT OT EVAL WHEN PATIENT AVAILABLE. JEANETTE Hyman 05/01/2011 * Priscila Torres OT - 05/01/2011 9:14 AM CDT ATTEMPTED TO INITIATE OT EVAL. PATIENT UNABLE TO MAINTAIN LEVEL OF ALERTNESS. WI LL ATTEMPT OT EVAL WHEN PATIENT AVAILABLE. JEANETTE Hyman 05/01/2011 * Richard Major, PT - 05/01/2011 8:44 AM CDT Physical Therapy Evaluation Patient Name: Paul Peters Today's Date: 05/01/2011 Date of onset:ADM 04-23-11 Treatment ordered:04-30-11 P.T. EVAL AND TREAT Problem List: Patient Active Problem List Diagnoses Code Acute delirium 780.09EL DM (diabetes mellitus) 250.00BV Atherosclerotic cerebrovascular disease 437.0H HTN (hypertension) 401.9AF Past Medical History: Past Medical History Diagnosis Date CVA (cerebral infarction) COPD (chronic obstructive pulmonary disease) Diabetes mellitus Hypertension Stroke Bipolar disorder Past Surgical History: Past Surgical History Procedure Date Eye surgery Subjective:60 YEAR OLD MALE ADM WITH ABOVE DX, ACUTE DELERIUM, ENCEPHALOPATHY AF TER HE WAS FOUND WANDERING THE STREETS. PATIENT WITH HX OF MULTIPLE CVA'S WITH LEFT SIDED WEAKNESS, BIPOLAR DISORDER, POLYSUBSTANCE ABUSE, CORTICAL BLINDNESS. PATIENT'S LIVING SITUATION IS UNKNOWN. Baseline Activity Level:UNKNOWN BUT A CANE FOR THE BLIND WAS NOTED TO BE IN HIS ROOM Signs of Abuse: Precautions/ Limitations:LEVEL 2 FALL RISK, 1:1 SITTERSHELIA Mental Status: DROWSY, MINIMAL INTERACTION Vision: CORTICAL BLINDNESS Hearing: SEEMS FUNCTIONAL Speech:SLIGHT MUMBLING BUT UNDERSTANDABLE WHEN HE DOES SPEAK ROM: NO GROSS DEFORMITY NOTED IN THE FEDE LE'S Strength: UNABLE TO TEST DUE TO LACK OF PATIENT PARTICIPATION BUT AT LEAST 3/5 F OR GAIT Sensation/ Pain: C/O PAIN IN VARIOUS AREAS WHEN ASSISTED OUT OF BED Pain rating: NO VERBAL RATING Bed Mobility: MOD ASSIST Sitting Balance: GOOD- Standing: GOOD- Transfers: MOD ASSIST OF ONE Posture: ERECT Gait: 150' WITH PATTERN LEASE INSPECTOR OF TWO RN STATES HIS CANE WAS NOT USED YESTERDAY DUE TO HIS BEHAVIOR ISSUES. SITTER ASSISTED. GAIT SLOW AND DELIBERATE WITH DEC STEP L BREONNA. PATIENT RETURNED TO BED ON HIS LEFT SIDE AND ALMOST IMMEDIATELY ASLEEP. Other: Discharge Plans:PER MD Assessment:DEC MOBILITY/ACTIVITY Patient Goal:NOT STATED STG:GAIT 250' IN 4 MIN WITH AAD AND MINIMAL ASSIST OF 1-2 IN 3 DAYS LTG:UP IN HALLS WITH MOBILITY TEAM IN 4 DAYS Time Frame:5 DAYS Patient Goals: Plan: CONTINUE P.T. DAILY FOR GAIT WITH TRIAL OF HIS CANE APPROPRIATE Today's Charge: 1 EVAL AT 830, 05-01-11 Signature: RICHARD FLOR, PT Date: Physical Therapy Evaluation Patient Name: Paul Peters Today's Date: 05/01/2011 Date of onset: Treatment ordered: Problem List: Patient Active Problem List Diagnoses Code Acute delirium 780.09EL DM (diabetes mellitus) 250.00BV Atherosclerotic cerebrovascular disease 437.0H HTN (hypertension) 401.9AF Past Medical History: Past Medical History Diagnosis Date CVA (cerebral infarction) COPD (chronic obstructive pulmonary disease) Diabetes mellitus Hypertension Stroke Bipolar disorder Past Surgical History: Past Surgical History Procedure Date Eye surgery Subjective: Baseline Activity Level: Signs of Abuse: Precautions/ Limitations: Mental Status: Vision: Hearing: Speech: ROM: Strength: Sensation/ Pain: Pain rating: Bed Mobility: Sitting Balance: Standing: Transfers: Posture: Gait: Other: Discharge Plans: Assessment: Patient Goal: STG: LTG: Time Frame: Patient Goals: Plan: Today's Charge: Signature: Date: * Teresa Muller RN - 04/30/2011 4:06 PM CDT Communication with ALEENA Klein this am. Confirmed that APS report had been made. Ca ll to risk mgmt for request for guidance re: guardianship. Will need two physici an letters stating patient is incompetent to make decisions and emergency guardi anship is requested. Spoke with Dr. Carson re: this and he agrees to letter. Will a ttempt to contact Dr. Agarwal * Teresa Muller RN - 04/29/2011 10:56 AM CDT Communication with ALEENA Klein to confirm APS report. Patient will need guardianshi p for placement needs and he is not competent to make decisions. Call placed to Risk Management to assist with emergency guardianship for patient-VM left for An ne [facility]. * Latoya Amaral - 04/28/2011 2:04 PM CDT ALEENA spoke with Romero Brooke, welfare case worker at [facility] ([phone]). He says that prio r to this hospitalization this patient was functioning fairly well. He suggested that the patient be screened for "the residence" at [facility]. He plans to visit the patient sometime soon. ALEENA spoke with the patient's nurse and learned that the patient is no longer in restraints but is wearing mitts so that he can't pull at his I.V. Lines. He is reported to still be confused. Due to his current conditi on he wouldn't be appropriate for "the residence." ALEENA spoke with Dot at the [facility] Crisis services about this patient. She said that the patient would be able to ambulate and be medically stable to go to [facility]. Also, she said that OSH is currently over full. The RN reported to SW that psychiatry has advised that the patient wouldn't be appropriate for SDU either. Romero mayorga d that this patient doesn't have a guardian or a DPOA as far as he knows. The sudha richardson does have a payee. ALEENA spoke with the RN KAMILA and determined that an APS repo rt is indicated so that guardianship could be pursued and decisions made about p lans for placement. Latoya Amaral [facility] Ext. [id number] 15:59 04/28/11 ALEENA completed report to APS. Latoya Amaral [facility] Ext. [phone] * Latoya Amaral - 04/27/2011 4:57 PM CDT ALEENA spoke with Phi Ge of [facility]. He says that this patient is a client of [facility] and has participated in their dual dx program. The patient's welfare case worker is Sudha Brooke. The patient is reported to have problems with bipolar disorder and alcohol dependence. ALEENA asked that Phi Jasso know that the patient is in [facility] and he can contact this SW about plans for this patient. Latoya Amaral [facility] Ext. [phone] * Shannan Ibrahim, RN - 04/26/2011 6:12 AM CDT Continues to be agitated at this time. Pulling at mittens, trying to roll out of bed, repeating "I have to pee. Pee. Pee. I have to pee. Pee. Pee. Pee. Pee. Pe e. Pee. Pee. I have to pee. Help. Help. Help." Reminded pt that he has a cathet er which will take care of urination needs, and that staff is present in room to help. Does not respond to staff instructions, and continues to repeat "Pee. Pe e. Pee. Pee. Pee. Pee. Pee" while continuing to try to exit room. Will remain a t bedside and continue to monitor. * Jacinto Brown, MELVIN - 04/26/2011 5:49 AM CDT END OF SHIFT TELEMETRY REPORT: S.TACH, RSR, PAC'S 100-120. * Teresa Muller RN - 04/24/2011 3:24 PM CDT Discussed patient with ALEENA Klein this am. Patient identified as having psychosoci al needs. ALEENA will follow. Consults pending. Dc plan pending progress, needs. CM to be available prn * Alexia Rizo RN - 04/24/2011 7:39 AM CDT Per [place] - Delirum of uncertain etiology that has not responded to appropria te treatment * Eleonora Dumont RN - 04/23/2011 3:10 PM CDT Met with patient shortly after he arrived in the ED. Patient had stated his name was "Lazara Peters" but could/would not provide any further information. Patient then became more alert and was able to provide correct name and some i nformation. This repairer typewriter asked patient if we could contact the name (Melony Templeton @ [phone]) and he agreed. This repairer typewriter spoke with Ms. Templeton and she said she l ast saw patient about 10 days ago when she took him to confucianist with her.Ms. Priyanka farley said she is patient's "social global security architect and payee." She said she received a voice mail from patient yesterday stating he had transportation arra nged for his doctor's appt today with Dr. Ramsey Valladares. Ms. Templeton said his speec h was slurred and hard to understand. Ms. Templeton states patient does use ETOH a nd drugs but she is not sure how he would obtain them due to the fact he has no money at this time. This repairer typewriter left a voice message at Dr. Ramsey Valladares' office to see if patient came to his appt today. Awaiting a return call. documented in this encounter Plan of Treatment Date/Time Name Type Priority Associated Diagnoses 04/23/2011 2:13 PM CDT Hold for further testing Lab STAT 04/27/2011 9:45 PM CDT EXTERNAL LAB TEST Lab 05/05/2011 9:45 PM CDT EXTERNAL LAB TEST Lab 05/06/2011 4:15 PM CDT EKG 12-LEAD ECG 05/06/2011 12:00 AM CDT EXTERNAL LAB TEST Lab 05/06/2011 12:00 AM CDT EXTERNAL LAB TEST Lab Order Schedule Name Type Priority Associated Diagnoses Once for 1 Occurrences starting 04/23/2011 until 04/23/2011 Hold for further testing Lab STAT documented as of this encounter Procedures Comments Procedure Name Priority Date/Time Associated Diagnosis ECHOCARDIOGRAM 05/06/2011 4:15 PM CDT ECHOCARDIOGRAM 05/06/2011 4:15 PM CDT EKG 12-LEAD 05/06/2011 4:15 PM CDT BEDSIDE GLUCOSE - NURSE Routine 05/06/2011 8:32 AM CDT BEDSIDE GLUCOSE - NURSE Routine 05/05/2011 9:15 PM CDT URINALYSIS, REFLEX Routine 05/05/2011 CULTURE IF NEEDED 5:11 PM CDT BEDSIDE GLUCOSE - NURSE Routine 05/05/2011 4:40 PM CDT BEDSIDE GLUCOSE - NURSE Routine 05/05/2011 11:33 AM CDT BEDSIDE GLUCOSE - NURSE Routine 05/05/2011 8:30 AM CDT BEDSIDE GLUCOSE - NURSE Routine 05/04/2011 9:44 PM CDT BEDSIDE GLUCOSE - NURSE Routine 05/04/2011 5:06 PM CDT BEDSIDE GLUCOSE - NURSE Routine 05/04/2011 12:04 PM CDT BEDSIDE GLUCOSE - NURSE Routine 05/04/2011 11:25 AM CDT BEDSIDE GLUCOSE - NURSE Routine 05/04/2011 7:16 AM CDT ESTIMATED GFR Routine 05/04/2011 6:38 AM CDT LIPID PANEL RAUL 05/04/2011 6:38 AM CDT BASIC METABOLIC PANEL Routine 05/04/2011 6:38 AM CDT BEDSIDE GLUCOSE - NURSE Routine 05/03/2011 8:59 PM CDT BEDSIDE GLUCOSE - NURSE Routine 05/03/2011 5:24 PM CDT BEDSIDE GLUCOSE - NURSE Routine 05/03/2011 12:44 PM CDT BEDSIDE GLUCOSE - NURSE Routine 05/03/2011 7:25 AM CDT BEDSIDE GLUCOSE - NURSE Routine 05/02/2011 9:14 PM CDT BEDSIDE GLUCOSE - NURSE Routine 05/02/2011 5:57 PM CDT BEDSIDE GLUCOSE - NURSE Routine 05/02/2011 11:43 AM CDT BEDSIDE GLUCOSE - NURSE Routine 05/02/2011 8:49 AM CDT BEDSIDE GLUCOSE - NURSE Routine 05/01/2011 9:14 PM CDT BEDSIDE GLUCOSE - NURSE Routine 05/01/2011 4:45 PM CDT BEDSIDE GLUCOSE - NURSE Routine 05/01/2011 12:06 PM CDT BEDSIDE GLUCOSE - NURSE Routine 05/01/2011 7:37 AM CDT BEDSIDE GLUCOSE - NURSE Routine 04/30/2011 9:05 PM CDT BEDSIDE GLUCOSE - NURSE Routine 04/30/2011 5:08 PM CDT BEDSIDE GLUCOSE - NURSE Routine 04/30/2011 12:34 PM CDT BEDSIDE GLUCOSE - NURSE Routine 04/30/2011 8:43 AM CDT CBC AND DIFFERENTIAL Timed 04/30/2011 7:20 AM CDT COMPREHENSIVE METABOLIC Timed 04/30/2011 PANEL 7:20 AM CDT BEDSIDE GLUCOSE - NURSE Routine 04/29/2011 8:54 PM CDT BEDSIDE GLUCOSE - NURSE Routine 04/29/2011 6:24 PM CDT MRI BRAIN WO CONTRAST Routine 04/29/2011 12:00 PM CDT BEDSIDE GLUCOSE - NURSE Routine 04/29/2011 11:57 AM CDT BEDSIDE GLUCOSE - NURSE Routine 04/29/2011 8:09 AM CDT EXTERNAL RADIOLOGY 04/29/2011 PROCEDURE 12:00 AM CDT BEDSIDE GLUCOSE - NURSE Routine 04/28/2011 9:15 PM CDT BEDSIDE GLUCOSE - NURSE Routine 04/28/2011 5:59 PM CDT BEDSIDE GLUCOSE - NURSE Routine 04/28/2011 12:24 PM CDT BEDSIDE GLUCOSE - NURSE Routine 04/28/2011 9:13 AM CDT BEDSIDE GLUCOSE - NURSE Routine 04/27/2011 9:16 PM CDT BEDSIDE GLUCOSE - NURSE Routine 04/27/2011 6:37 PM CDT BEDSIDE GLUCOSE - NURSE Routine 04/27/2011 11:45 AM CDT BEDSIDE GLUCOSE - NURSE Routine 04/27/2011 8:45 AM CDT BEDSIDE GLUCOSE - NURSE Routine 04/26/2011 9:06 PM CDT BEDSIDE GLUCOSE - NURSE Routine 04/26/2011 5:18 PM CDT BEDSIDE GLUCOSE - NURSE Routine 04/26/2011 11:56 AM CDT BEDSIDE GLUCOSE - NURSE Routine 04/26/2011 7:52 AM CDT BEDSIDE GLUCOSE - NURSE Routine 04/25/2011 8:49 PM CDT BEDSIDE GLUCOSE - NURSE Routine 04/25/2011 4:49 PM CDT BEDSIDE GLUCOSE - NURSE Routine 04/25/2011 12:52 PM CDT ECHOCARDIOGRAM 04/25/2011 12:45 PM CDT ECHOCARDIOGRAM 04/25/2011 12:45 PM CDT BEDSIDE GLUCOSE - NURSE Routine 04/25/2011 9:50 AM CDT NIV ECHO W/DOPPLER & Routine 04/25/2011 COLOR FLW 9:06 AM CDT NI EXTRACRANIAL ARTERIES Routine 04/25/2011 - BI 8:37 AM CDT RPR Timed 04/25/2011 7:50 AM CDT EEG Routine 04/25/2011 12:05 AM CDT EXTERNAL RADIOLOGY 04/25/2011 PROCEDURE 12:00 AM CDT BEDSIDE GLUCOSE - NURSE Routine 04/24/2011 9:14 PM CDT BEDSIDE GLUCOSE - NURSE Routine 04/24/2011 5:28 PM CDT BEDSIDE GLUCOSE - NURSE Routine 04/24/2011 11:55 AM CDT CANCELLED TEST Routine 04/24/2011 10:31 AM CDT BEDSIDE GLUCOSE - NURSE Routine 04/24/2011 7:29 AM CDT URINALYSIS, REFLEX Timed 04/24/2011 CULTURE IF NEEDED 7:10 AM CDT URINE CULTURE Timed 04/24/2011 7:10 AM CDT CBC AND DIFFERENTIAL Timed 04/24/2011 6:47 AM CDT TSH Timed 04/24/2011 6:47 AM CDT FOLATE Timed 04/24/2011 6:47 AM CDT VITAMIN B12 Timed 04/24/2011 6:47 AM CDT BASIC METABOLIC PANEL Timed 04/24/2011 6:47 AM CDT BEDSIDE GLUCOSE - NURSE Routine 04/24/2011 1:28 AM CDT BEDSIDE GLUCOSE - NURSE Routine 04/23/2011 9:45 PM CDT SALICYLATES STAT 04/23/2011 2:50 PM CDT URINALYSIS, REFLEX STAT 04/23/2011 CULTURE IF NEEDED 2:50 PM CDT DRUG SCREEN (8) MEDICAL STAT 04/23/2011 2:50 PM CDT ESTIMATED GFR STAT 04/23/2011 2:11 PM CDT CBC AND DIFFERENTIAL STAT 04/23/2011 2:11 PM CDT COMPREHENSIVE METABOLIC STAT 04/23/2011 PANEL 2:[address] HEAD WO CONTRAST STAT 04/23/2011 1:50 PM CDT BEDSIDE GLUCOSE - NURSE Routine 04/23/2011 1:39 PM CDT EXTERNAL RADIOLOGY 04/23/2011 PROCEDURE 12:00 AM CDT documented in this encounter Results * ECHOCARDIOGRAM (05/06/2011 4:15 PM CDT) Narrative Performed At Finalized by system utility as part of the [facility] clean up. Procedure Note 01/04/2016 7:47 PM DEPARTMENT CHAIR Finalized by system utility as part of the [facility] clean up. * ECHOCARDIOGRAM (05/06/2011 4:15 PM CDT) Narrative Performed At * EKG 12-LEAD (05/06/2011 4:15 PM CDT) Narrative Performed At * BEDSIDE GLUCOSE - NURSE (05/06/2011 8:32 AM CDT) Bedside Glucose 149 (H)Comment: Notify Nurse 70 - 105 mg/dL [facility] - Nurse Specimen Performing Organization Address [facility] Phone Number [facility] [address] [place] [phone] [facility] * BEDSIDE GLUCOSE - NURSE (05/05/2011 9:15 PM CDT) Bedside Glucose 185 (H)Comment: Notify Nurse 70 - 105 mg/dL [facility] - Nurse Specimen Performing Organization Address [facility] Phone Number [facility] [address] [place] [address] [facility] * Urinalysis, Reflex Culture If Needed (05/05/2011 5:11 PM CDT) Color, UA Yellow [facility] Appearance CLEAR [facility] Specific 1.018 1.003 - 1.030 [facility] [place], UA pH, UA 5.5 5.0 - 8.0 [facility] Protein, UA NEG NEG [facility] Glucose, UA NEG NEG [facility] Ketones, UA 2+ (A) NEG [facility] Urobilinogen, 8.0 (H) 0.0 - 1.0 EU [facility] UA Bilirubin, UA NEG NEG [facility] Hemoglobin, UA NEG NEG [facility] Leukoesterase, NEG NEG [facility] UA Nitrites, UA NEG NEG [facility] Mucous 1+ [facility] WBC, UA 0-3 0 - 3 /HPF [facility] Culture Set NOT PERFORMED [facility] RBC, UA 0-3 0 - 3 /HPF [facility] Specimen Urine, Clean Catch Performing Organization Address [facility] Phone Number [facility] [address] [place] [phone] [facility] * BEDSIDE GLUCOSE - NURSE (05/05/2011 4:40 PM CDT) Bedside Glucose 97Comment: Notify Nurse 70 - 105 mg/dL [facility] - Nurse Specimen Performing Organization Address [facility] Phone Number [facility] [address] [place] [phone] [facility] * BEDSIDE GLUCOSE - NURSE (05/05/2011 11:33 AM CDT) Bedside Glucose 203 (H)Comment: Notify Nurse 70 - 105 mg/dL [facility] - Nurse Specimen Performing Organization Address [facility] Phone Number [facility] [address] [place] [phone] [facility] * BEDSIDE GLUCOSE - NURSE (05/05/2011 8:30 AM CDT) Bedside Glucose 145 (H)Comment: Notify Nurse 70 - 105 mg/dL [facility] - Nurse Specimen Performing Organization Address [facility] Phone Number [facility] [address] [place] [phone] [facility] * BEDSIDE GLUCOSE - NURSE (05/04/2011 9:44 PM CDT) Bedside Glucose 95Comment: Notify Nurse 70 - 105 mg/dL [facility] - Nurse Specimen Performing Organization Address [facility] Phone Number [facility] [address] [place] [phone] [facility] * BEDSIDE GLUCOSE - NURSE (05/04/2011 5:06 PM CDT) Bedside Glucose 106 (H)Comment: Notify Nurse 70 - 105 mg/dL [facility] - Nurse Specimen Performing Organization Address [facility] Phone Number [facility] [address] [place] [address] [facility] * BEDSIDE GLUCOSE - NURSE (05/04/2011 12:04 PM CDT) Bedside Glucose 92Comment: Notify Nurse 70 - 105 mg/dL [facility] - Nurse Specimen Performing Organization Address [facility] Phone Number [facility] [address] [place] [address] [facility] * BEDSIDE GLUCOSE - NURSE (05/04/2011 11:25 AM CDT) Bedside Glucose 49 (L)Comment: Notify Nurse 70 - 105 mg/dL [facility] - Nurse Specimen Performing Organization Address [facility] Phone Number [facility] [address] [place] [phone] [facility] * BEDSIDE GLUCOSE - NURSE (05/04/2011 7:16 AM CDT) Bedside Glucose 142 (H)Comment: Notify Nurse 70 - 105 mg/dL [facility] - Nurse Specimen Performing Organization Address [facility] Phone Number [facility] [address] [place] [phone] [facility] * Lipid Panel (05/04/2011 6:38 AM CDT) Cholesterol 125 0 - 200 mg/dL [facility] Triglycerides 97 0 - 149 mg/dL [facility] HDL 36 (L) 40 - 90 mg/dL [facility] LDL Cholesterol 70 0 - 99 mg/dL [facility] Specimen Blood specimen (specimen) Performing Organization Address [facility] Phone Number [facility] [address] [place] [phone] [facility] * ESTIMATED GFR (05/04/2011 6:38 AM CDT) GFR MDRD Af >59 >59 [...] square meters of body surface area. Specimen Narrative Performed At NTE [facility] Performing Organization Address [facility] Phone Number [facility] [address] [place] [phone] [facility] * Basic metabolic panel (05/04/2011 6:38 AM CDT) Sodium 143 136 - 145 mmol/L [facility] Potassium 3.9 3.6 - 4.9 mmol/L [facility] Chloride 107 99 - 111 mmol/L [facility] CO2 29 20 - 36 mmol/L [facility] Glucose 143 (H) 74 - 106 mg/dL [facility] BUN, Bld 13 6 - 20 mg/dL [facility] Creatinine 0.9 0.6 - 1.2 mg/dL [facility] Calcium 9.6 8.7 - 10.5 mg/dL [facility] Specimen Blood specimen (specimen) Performing Organization Address [facility] Phone Number [facility] [address] [place] [address] [facility] * BEDSIDE GLUCOSE - NURSE (05/03/2011 8:59 PM CDT) Bedside Glucose 112 (H)Comment: Notify Nurse 70 - 105 mg/dL [facility] - Nurse Specimen Performing Organization Address [facility] Phone Number [facility] [address] [place] [phone] [facility] * BEDSIDE GLUCOSE - NURSE (05/03/2011 5:24 PM CDT) Bedside Glucose 155 (H)Comment: Notify Nurse 70 - 105 mg/dL [facility] - Nurse Specimen Performing Organization Address [facility] Phone Number [facility] [address] [place] [phone] [facility] * BEDSIDE GLUCOSE - NURSE (05/03/2011 12:44 PM CDT) Bedside Glucose 83 70 - 105 mg/dL [facility] - Nurse Specimen Performing Organization Address [facility]/Zipcode Phone Number [facility] [address] [place] [address] [facility] * BEDSIDE GLUCOSE - NURSE (05/03/2011 7:25 AM CDT) Bedside Glucose 107 (H)Comment: Notify Nurse 70 - 105 mg/dL [facility] - Nurse Specimen Performing Organization Address [facility] Phone Number [facility] [address] [place] [address] [facility] * BEDSIDE GLUCOSE - NURSE (05/02/2011 9:14 PM CDT) Bedside Glucose 98Comment: Notify Nurse 70 - 105 mg/dL [facility] - Nurse Specimen Performing Organization Address [facility] Phone Number [facility] [address] [place] [phone] [facility] * BEDSIDE GLUCOSE - NURSE (05/02/2011 5:57 PM CDT) Bedside Glucose 104Comment: Notify Nurse 70 - 105 mg/dL [facility] - Nurse Specimen Performing Organization Address [facility] Phone Number [facility] [address] [place] [phone] [facility] * BEDSIDE GLUCOSE - NURSE (05/02/2011 11:43 AM CDT) Bedside Glucose 120 (H)Comment: Notify Nurse 70 - 105 mg/dL [facility] - Nurse Specimen Performing Organization Address [facility] Phone Number [facility] [address] [place], [place] [id number] [facility] * BEDSIDE GLUCOSE - NURSE (05/02/2011 8:49 AM CDT) Bedside Glucose 126 (H)Comment: Notify Nurse 70 - 105 mg/dL [facility] - Nurse Specimen Performing Organization Address [facility] Phone Number [facility] [address] [place] [address] [phone] SO[facility] * BEDSIDE GLUCOSE - NURSE (05/01/2011 9:14 PM CDT) Bedside Glucose 110 (H)Comment: Notify Nurse 70 - 105 mg/dL [facility] - Nurse Specimen Performing Organization Address City/[facility]/Zipcode Phone Number [facility] [address] [place] [address] [phone] SO[facility] * BEDSIDE GLUCOSE - NURSE (05/01/2011 4:45 PM CDT) Bedside Glucose 121 (H)Comment: Notify Nurse 70 - 105 mg/dL [facility] - Nurse Specimen Performing Organization Address City/[facility] Phone Number [facility] [address] [place] [address] [phone] SOFT[facility] * BEDSIDE GLUCOSE - NURSE (05/01/2011 12:06 PM CDT) Bedside Glucose 81Comment: Notify Nurse 70 - 105 mg/dL [facility] - Nurse Specimen Performing Organization Address City/[facility] Vegascowv Phone Number [facility] [address] [place] [address] [phone] [facility] * BEDSIDE GLUCOSE - NURSE (05/01/2011 7:37 AM CDT) Bedside Glucose 129 (H)Comment: Notify Nurse 70 - 105 mg/dL [facility] - Nurse Specimen Performing Organization Address City/[facility] Veg[facility]owv Phone Number [facility] [address] [place] [address] [phone] [facility] * BEDSIDE GLUCOSE - NURSE (04/30/2011 9:05 PM CDT) Bedside Glucose 133 (H)Comment: Notify Nurse 70 - 105 mg/dL [facility] - Nurse Specimen Performing Organization Address City/[facility] Phone Number [facility] [address] [place] [address] [phone] [facility] * BEDSIDE GLUCOSE - NURSE (04/30/2011 5:08 PM CDT) Bedside Glucose 182 (H)Comment: Notify Nurse 70 - 105 mg/dL [facility] - Nurse Specimen Performing Organization Address City/[facility] Phone Number [facility] [address] [place] [address] [phone] [facility] * BEDSIDE GLUCOSE - NURSE (04/30/2011 12:34 PM CDT) Bedside Glucose 160 (H)Comment: Notify Nurse 70 - 105 mg/dL [facility] - Nurse Specimen Performing Organization Address [facility] Phone Number [facility] [address] [place] [address] [phone] [facility] * BEDSIDE GLUCOSE - NURSE (04/30/2011 8:43 AM CDT) Bedside Glucose 134 (H)Comment: Notify Nurse 70 - 105 mg/dL [facility] - Nurse Specimen Performing Organization Address [facility] Phone Number [facility] [address] [place] [address] [phone] [facility] * Comprehensive Metabolic Panel (04/30/2011 7:20 AM CDT) Albumin 4.5 3.4 - 4.8 g/dL [facility] Alkaline 116 29 - 122 U/L [facility] Phosphatase ALT 34 10 - 46 U/L [facility] AST 34 16 - 37 U/L [facility] Total Bilirubin 0.6 0.3 - 1.2 mg/dL [facility] BUN, Bld 8 6 - 20 mg/dL [facility] Calcium 9.8 8.7 - 10.5 mg/dL [facility] Chloride 107 99 - 111 mmol/L [facility] Creatinine 0.7 0.6 - 1.2 mg/dL [facility] Glucose 153 (H) 74 - 106 mg/dL [facility] Potassium 4.2 3.6 - 4.9 mmol/L [facility] Total Protein 7.8 6.4 - 8.3 g/dL [facility] Sodium 142 136 - 145 mmol/L [facility] CO2 28 20 - 36 mmol/L [facility] Specimen Blood specimen (specimen) Performing Organization Address [facility]v Phone Number [facility] [address] [place] [address] [phone] SO[facility] * CBC And Differential (04/30/2011 7:20 AM CDT) WBC 7.1 4.8 - 10.8 10 3/cumm [facility] RBC 5.07 4.50 - 5.90 10 [facility] 6/cumm Hemoglobin 16.0 13.5 - 17.5 g/dL [facility] Hematocrit 46.4 40.0 - 52.0 % [facility] MCV 91.6 80.0 - 100.0 fL [facility] MCH 31.6 26.0 - 34.0 pg [facility] MCHC 34.5 31.0 - 37.0 g/dL [facility] RDW 13.2 10.0 - 14.8 % [facility] Platelets 250 147 - 412 10 3/cumm [facility] MPV 8.2 6.8 - 10.0 fL [facility] Neutrophils % 52.8 40.0 - 75.0 % [facility] Lymphocytes % 33.3 22.0 - 49.0 % [facility] Monocytes % 9.6 (H) 2.0 - 9.0 % [facility] Eosinophils % 3.9 0.0 - 5.0 % [facility] Basophils % 0.4 0.0 - 2.5 % [facility] Specimen Blood specimen (specimen) Performing Organization Address [facility]v Phone Number [facility] [address] [place] [address] [phone] SO[facility] * BEDSIDE GLUCOSE - NURSE (04/29/2011 8:54 PM CDT) Bedside Glucose 168 (H)Comment: Notify Nurse 70 - 105 mg/dL [facility] - Nurse Specimen Performing Organization Address [facility] Phone Number [facility] [address] [place] [address] [phone] SO[facility] * BEDSIDE GLUCOSE - NURSE (04/29/2011 6:24 PM CDT) Bedside Glucose 212 (H)Comment: Notify Nurse 70 - 105 mg/dL [facility] - Nurse Specimen Performing Organization Address [facility] Phone Number [facility] [address] [place] [address] [phone] [facility] * MRI brain without contrast (04/29/2011 12:00 PM CDT) Specimen Narrative Performed At MRI Brain without contrast [facility] RAD Indication: Stroke Technique: Multiple MR images were obtained through the brain in several obliquities without use of IV contrast including 2 diffusion and ADC sequences. However, examination is somewhat limited as the patient was combative during the examination and there is motion artifact and the axial FLAIR and coronal T2 images were unable to be obtained. Findings: Comparison made with prior CT head of April 23, 2011 and prior MRI of October 13, 2008. An area of restricted diffusion is seen in the left posterior parietal-occipital white matter and cortex consistent with acute or recent ischemia/infarction. No other abnormal areas of restricted diffusion are identified. Areas of encephalomalacia and gliosis are seen in the left occipital lobe and left cerebellar hemisphere consistent with old infarction. Small old lacunar infarcts are seen in the right basal ganglia. Moderate parenchymal volume loss is noted. There is mild atrophy of the right cerebral peduncle. Moderate nonspecific white matter disease is likely related to chronic microvascular ischemic change. No evidence of mass effect or midline shift. The basilar cisterns are patent. The midline structures are well formed. The globes and orbits are unremarkable. The visualized paranasal sinuses and mastoid air cells are clear. Impression: 1. Acute or recent ischemia/infarction in the left posterior parietal occipital lobe. 2. Moderate parenchymal volume loss. Moderate nonspecific white matter disease is likely related to chronic microvascular ischemic change. 3. 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 This information was discussed with the patient's nurse, Yoel Barr, at the time of interpretation. Procedure Note Ed, Rad Results In - 04/29/2011 2:15 PM CDT MRI Brain without contrast Indication: Stroke Technique: Multiple MR images were obtained through the brain in several obliquities without use of IV contrast including 2 diffusion and ADC sequences. However, examination is somewhat limited as the patient was combative during the examination and there is motion artifact and the axial FLAIR and coronal T2 images were unable to be obtained. Findings: Comparison made with prior CT head of April 23, 2011 and prior MRI of October 13, 2008. An area of restricted diffusion is seen in the left posterior parietal-occipital white matter and cortex consistent with acute or recent ischemia/infarction. No other abnormal areas of restricted diffusion are identified. Areas of encephalomalacia and gliosis are seen in the left occipital lobe and left cerebellar hemisphere consistent with old infarction. Small old lacunar infarcts are seen in the right basal ganglia. Moderate parenchymal volume loss is noted. There is mild atrophy of the right cerebral peduncle. Moderate nonspecific white matter disease is likely related to chronic microvascular ischemic change. No evidence of mass effect or midline shift. The basilar cisterns are patent. The midline structures are well formed. The globes and orbits are unremarkable. The visualized paranasal sinuses and mastoid air cells are clear. Impression: 1. Acute or recent ischemia/infarction in the left posterior parietal occipital lobe. 2. Moderate parenchymal volume loss. Moderate nonspecific white matter disease is likely related to chronic microvascular ischemic change. 3. 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 This information was discussed with the patient's nurse, Yoel Barr, at the time of interpretation. Performing Organization Address City/State/[facility] Phone Number [facility] * BEDSIDE GLUCOSE - NURSE (04/29/2011 11:57 AM CDT) Bedside Glucose 117 (H) 70 - 105 mg/dL SOFT[facility] - Nurse Specimen Performing Organization Address [facility]v Phone Number [facility] [address] [place] [address] [phone] [facility] * BEDSIDE GLUCOSE - NURSE (04/29/2011 8:09 AM CDT) Bedside Glucose 145 (H)Comment: Notify Nurse 70 - 105 mg/dL [facility] - Nurse Specimen Performing Organization Address [facility] Phone Number [facility] [address] [place] [address] [phone] [facility] * EXTERNAL RADIOLOGY PROCEDURE (04/29/2011 12:00 AM CDT) Narrative Performed At Finalized by system utility as part of the [employer] project clean up. Procedure Note 01/04/2016 7:47 PM DEPARTMENT CHAIR Finalized by system utility as part of the [employer] project clean up. * BEDSIDE GLUCOSE - NURSE (04/28/2011 9:15 PM CDT) Bedside Glucose 162 (H) 70 - 105 mg/dL [facility] - Nurse Specimen Performing Organization Address [facility] Phone Number [facility] [address] [place], [place] [phone] [facility] * BEDSIDE GLUCOSE - NURSE (04/28/2011 5:59 PM CDT) Bedside Glucose 133 (H)Comment: Notify Nurse 70 - 105 mg/dL [facility] - Nurse Specimen Performing Organization Address City/[facility] Phone Number [facility] [address] [place] [address] [facility] * BEDSIDE GLUCOSE - NURSE (04/28/2011 12:24 PM CDT) Bedside Glucose 199 (H)Comment: Notify Nurse 70 - 105 mg/dL [facility] - Nurse Specimen Performing Organization Address City/[facility] Phone Number [facility] [address] [place] [address] [phone] [facility] * BEDSIDE GLUCOSE - NURSE (04/28/2011 9:13 AM CDT) Bedside Glucose 150 (H)Comment: Notify Nurse 70 - 105 mg/dL [facility] - Nurse Specimen Performing Organization Address City/[facility] Phone Number [facility] [address] [place] [address] [phone] SO[facility] * BEDSIDE GLUCOSE - NURSE (04/27/2011 9:16 PM CDT) Bedside Glucose 155 (H) 70 - 105 mg/dL [facility] - Nurse Specimen Performing Organization Address [facility] Phone Number [facility] [address] [place] [address] [phone] [facility] * BEDSIDE GLUCOSE - NURSE (04/27/2011 6:37 PM CDT) Bedside Glucose 116 (H)Comment: Notify Nurse 70 - 105 mg/dL [facility] - Nurse Specimen Performing Organization Address City/[facility] Phone Number [facility] [address] [place] [address] [phone] [facility] * BEDSIDE GLUCOSE - NURSE (04/27/2011 11:45 AM CDT) Bedside Glucose 198 (H)Comment: Notify Nurse 70 - 105 mg/dL [facility] - Nurse Specimen Performing Organization Address City/[facility] Phone Number [facility] [address] [place] [address] [phone] [facility] * BEDSIDE GLUCOSE - NURSE (04/27/2011 8:45 AM CDT) Bedside Glucose 166 (H) 70 - 105 mg/dL [facility] - Nurse Specimen Performing Organization Address City/[facility] Phone Number [facility] [address] [place] [address] [phone] [facility] * BEDSIDE GLUCOSE - NURSE (04/26/2011 9:06 PM CDT) Bedside Glucose 184 (H)Comment: Notify Nurse 70 - 105 mg/dL [facility] - Nurse Specimen Performing Organization Address [facility] Phone Number [facility] [address] [place] [address] [phone] [facility] * BEDSIDE GLUCOSE - NURSE (04/26/2011 5:18 PM CDT) Bedside Glucose 118 (H)Comment: Notify Nurse 70 - 105 mg/dL [facility] - Nurse Specimen Performing Organization Address City/[facility] Phone Number [facility] [address] [place] [address] [phone] [facility] * BEDSIDE GLUCOSE - NURSE (04/26/2011 11:56 AM CDT) Bedside Glucose 149 (H)Comment: Notify Nurse 70 - 105 mg/dL [facility] - Nurse Specimen Performing Organization Address [facility]v Phone Number [facility] [address] [place] [address] [phone] [facility] * BEDSIDE GLUCOSE - NURSE (04/26/2011 7:52 AM CDT) Bedside Glucose 167 (H) 70 - 105 mg/dL SO[facility] - Nurse Specimen Performing Organization Address [facility] Phone Number [facility] [address] [place] [address] [phone] [facility] * BEDSIDE GLUCOSE - NURSE (04/25/2011 8:49 PM CDT) Bedside Glucose 179 (H) 70 - 105 mg/dL [facility] - Nurse Specimen Performing Organization Address City/State/[facility] Phone Number [facility] [address] [place] [address] [facility] * BEDSIDE GLUCOSE - NURSE (04/25/2011 4:49 PM CDT) Bedside Glucose 122 (H)Comment: Notify Nurse 70 - 105 mg/dL SO[facility] - Nurse Specimen Performing Organization Address [facility] Phone Number [facility] [address] [place] [address] [facility] * BEDSIDE GLUCOSE - NURSE (04/25/2011 12:52 PM CDT) Bedside Glucose 113 (H)Comment: Notify Nurse 70 - 105 mg/dL SO[facility] - Nurse Specimen Performing Organization Address [facility] Phone Number [facility] [address] [place] [address] [facility] * ECHOCARDIOGRAM (04/25/2011 12:45 PM CDT) Narrative Performed At Finalized by system utility as part of the [employer] project clean up. Procedure Note 01/04/2016 7:47 PM DEPARTMENT CHAIR Finalized by system utility as part of the [employer] project clean up. * ECHOCARDIOGRAM (04/25/2011 12:45 PM CDT) Narrative Performed At * BEDSIDE GLUCOSE - NURSE (04/25/2011 9:50 AM CDT) Bedside Glucose 116 (H) 70 - 105 mg/dL SO[facility] - Nurse Specimen Performing Organization Address [facility] Phone Number [facility] [address] [place] [address] [phone] SO[facility] * NIV Echo W/Doppler & Color Flw (04/25/2011 9:06 AM CDT) Specimen Narrative Performed At Finalized by system utility as part of the [employer] project clean up. [facility] Procedure Note 01/05/2016 4:11 PM DEPARTMENT CHAIR Finalized by system utility as part of the [employer] project clean up. Performing Organization Address City/[facility] Phone Number [facility] * NIV EXTRACRANIAL ARTERIES - BI (04/25/2011 8:37 AM CDT) Specimen Narrative Performed At INDICATION: Stroke. [facility] 1. Procedure High resolution triplex evaluation of the extracranial cerebrovascular system is performed. 2. Right Extracranial Carotid System Common:no significant stenosis. External: no significant stenosis. Bifurcation segment/proximal ICA:plaque causing <10% stenosis. 3. Left Extracranial Carotid System Common:no significant stenosis. External: no significant stenosis. Bifurcation segment/proximal ICA:plaque causing <10% stenosis. 4. Extracranial Vertebral Arteries Right:patent with cephalad flow. Left:patent with cephalad flow. FINAL IMPRESSION: 1. There is plaque in the bifurcation segment/proximal internal carotid artery bilaterally causing a maximum of <10% stenosis on the right, and <10% stenosis on the left. 2. The remainder of the exam reveals no clinically significant vascular abnormalities. Procedure Note Ed, Rad Results In - 04/27/2011 10:47 AM CDT INDICATION: Stroke. 1. Procedure High resolution triplex evaluation of the extracranial cerebrovascular system is performed. 2. Right Extracranial Carotid System Common: no significant stenosis. External: no significant stenosis. Bifurcation segment/proximal ICA: plaque causing <10% stenosis. 3. Left Extracranial Carotid System Common: no significant stenosis. External: no significant stenosis. Bifurcation segment/proximal ICA: plaque causing <10% stenosis. 4. Extracranial Vertebral Arteries Right: patent with cephalad flow. Left: patent with cephalad flow. FINAL IMPRESSION: 1. There is plaque in the bifurcation segment/proximal internal carotid artery bilaterally causing a maximum of <10% stenosis on the right, and <10% stenosis on the left. 2. The remainder of the exam reveals no clinically significant vascular abnormalities. Performing Organization Address City/State/Zipcode Phone Number [facility] * RPR (04/25/2011 7:50 AM CDT) RPR NON-REACTIVE Non-Reactive [facility] Specimen Blood specimen (specimen) Performing Organization Address City/State/Zipcode Phone Number [facility] [address] [place] [address] [phone] SO[facility] * EXTERNAL RADIOLOGY PROCEDURE (04/25/2011 12:00 AM CDT) Narrative Performed At Finalized by system utility as part of the [employer] project clean up. Procedure Note 01/04/2016 7:47 PM DEPARTMENT CHAIR Finalized by system utility as part of the [place] project clean up. * BEDSIDE GLUCOSE - NURSE (04/24/2011 9:14 PM CDT) Bedside Glucose 155 (H)Comment: Notify Nurse 70 - 105 mg/dL SOFT[facility] - Nurse Specimen Performing Organization Address [facility] Phone Number [facility] [address] [place] [address] [facility] * BEDSIDE GLUCOSE - NURSE (04/24/2011 5:28 PM CDT) Bedside Glucose 154 (H)Comment: Notify Nurse 70 - 105 mg/dL SOFT[facility] - Nurse Specimen Performing Organization Address [facility] Phone Number [facility] [address] [place] [address] SO[facility] * BEDSIDE GLUCOSE - NURSE (04/24/2011 11:55 AM CDT) Bedside Glucose 92Comment: Notify Nurse 70 - 105 mg/dL SOFT[facility] - Nurse Specimen Performing Organization Address [facility] Phone Number [facility] [address] [place] [address] SOFT[facility] * CANCELLED TEST (04/24/2011 10:31 AM CDT) Cancelled Test see below SOFT[facility] Specimen Performing Organization Address [facility] Phone Number [facility] [address] [place] [address] SO[facility] * BEDSIDE GLUCOSE - NURSE (04/24/2011 7:29 AM CDT) Bedside Glucose 186 (H)Comment: Notify Nurse 70 - 105 mg/dL SO[facility] - Nurse Specimen Performing Organization Address [facility] Phone Number [facility] [address] [place] [address] SO[facility] * URINE CULTURE (04/24/2011 7:10 AM CDT) Urine Culture CORRECTED REPORT-[place] count: [facility] No growth.-The following was resulted in error-[place] count >100,000 cfu/ml of at least-Dr. Carson notified 04/27/2011 14:32 pjn Specimen Urine specimen (specimen) Performing Organization Address [facility] Phone Number [facility] [address] [place] [address] [phone] SO[facility] * Urinalysis, Reflex Culture If Needed (04/24/2011 7:10 AM CDT) Color, UA Yellow Appearance CLEAR Specific 1.012 1.003 - 1.030 [place], UA pH, UA 5.5 5.0 - 8.0 Protein, UA TRACE (A) NEG Glucose, UA TRACE (A) NEG Ketones, UA 3+ (A) NEG Urobilinogen, 2.0 (H) 0.0 - 1.0 EU UA Bilirubin, UA NEG NEG Hemoglobin, UA 3+ (A) NEG Leukoesterase, 2+ (A) NEG UA Nitrites, UA NEG NEG Mucous RARE WBC, UA 21-50 (A) 0 - 3 /HPF Culture Set SET RBC, UA >100 (A) 0 - 3 /HPF Specimen Urine specimen (specimen) * Folate (04/24/2011 6:47 AM CDT) Folate 20.2 ng/mL SO[facility] Comment: Serum Folate Reference Ranges: Normal =>5.4 ng/mL Deficient =<3.5 ng/mL Indeterminat e=3.5-5.4 ng/mL Specimen Blood specimen (specimen) Performing Organization Address [facility] Phone Number [facility] [address] [place] [address] [phone] [facility] * Vitamin B12 (04/24/2011 6:47 AM CDT) Vitamin B-12 336 211 - 911 pg/mL SO[facility] Comment: Vitamin B-12 Reference Range: Normal =211-911 pg/mL Deficient=32 -246 pg/mL Specimen Blood specimen (specimen) Performing Organization Address [facility] Phone Number [facility] [address] [place] [address] [phone] SO[facility] * TSH (04/24/2011 6:47 AM CDT) Pathologist [facility] TSH 1.410 0.400 - 4.000 uIU/mL SO[facility] Specimen Blood specimen (specimen) Performing Organization Address [facility] Phone Number [facility] [address] [place], [place] [phone] SO[facility] * CBC and differential (04/24/2011 6:47 AM CDT) Pathologist [facility] WBC 12.4 (H) 4.8 - 10.8 10 3/cumm [facility] RBC 4.56 4.50 - 5.90 10 SO[facility] 6/cumm Hemoglobin 14.5 13.5 - 17.5 g/dL SO[facility] Hematocrit 41.2 40.0 - 52.0 % [facility] MCV 90.2 80.0 - 100.0 fL [facility] MCH 31.8 26.0 - 34.0 pg [facility] MCHC 35.2 31.0 - 37.0 g/dL [facility] RDW 13.4 10.0 - 14.8 % [facility] Platelets 206 147 - 412 10 3/cumm [facility] MPV 8.9 6.8 - 10.0 fL [facility] Neutrophils % 84.0 (H) 40.0 - 75.0 % [facility] Lymphocytes % 9.9 (L) 22.0 - 49.0 % [facility] Monocytes % 5.7 2.0 - 9.0 % [facility] Eosinophils % 0.2 0.0 - 5.0 % [facility] Basophils % 0.2 0.0 - 2.5 % [facility] Specimen Blood specimen (specimen) Performing Organization Address City/[facility]/Zipcode Phone Number [facility] [address] [place] [address] [facility] * Basic metabolic panel (04/24/2011 6:47 AM CDT) Pathologist [facility] Sodium 141 136 - 145 mmol/L [facility] Potassium 3.7 3.6 - 4.9 mmol/L [facility] Chloride 105 99 - 111 mmol/L [facility] CO2 25 20 - 36 mmol/L [facility] Glucose 160 (H) 74 - 106 mg/dL [facility] BUN, Bld 11 6 - 20 mg/dL [facility] Creatinine 0.8 0.6 - 1.2 mg/dL [facility] Calcium 9.6 8.7 - 10.5 mg/dL [facility] Specimen Blood specimen (specimen) Performing Organization Address [facility] Phone Number [facility] [address] [place] [id number] [facility] * BEDSIDE GLUCOSE - NURSE (04/24/2011 1:28 AM CDT) Bedside Glucose 204 (H)Comment: Notify Nurse 70 - 105 mg/dL [facility] - Nurse Specimen Performing Organization Address [facility] Phone Number [facility] [address] [place] [address] [facility] * BEDSIDE GLUCOSE - NURSE (04/23/2011 9:45 PM CDT) Pathologist [facility] Bedside Glucose 134 (H)Comment: Notify Nurse 70 - 105 mg/dL [facility] - Nurse Specimen Performing Organization Address [facility] Number [facility] [address] [place] [phone] [facility] * SALICYLATES (04/23/2011 2:50 PM CDT) [facility] Salicylate, NEGATIVE [facility] Urine Specimen Performing Organization Address [facility] Number [facility] [address] [place] [phone] [facility] * Urinalysis, reflex culture if indicated (04/23/2011 2:50 PM CDT) Pathologist [facility] Color, UA Yellow Appearance CLEAR Specific 1.009 1.003 - 1.030 [place], UA pH, UA 6.0 5.0 - 8.0 Protein, UA NEG NEG Glucose, UA NEG NEG Ketones, UA NEG NEG Urobilinogen, 0.2 0.0 - 1.0 EU UA Bilirubin, UA NEG NEG Hemoglobin, UA NEG NEG Leukoesterase, NEG NEG UA Nitrites, UA NEG NEG Mucous RARE WBC, UA 0-3 0 - 3 /HPF Culture Set NOT PERFORMED RBC, UA NONE 0 - 3 /HPF Specimen Urine specimen (specimen) * Drug Screen (8) Medical (04/23/2011 2:50 PM CDT) Amphetamine NEGATIVE Cutoff 1000 ng/mL Barbiturates NEGATIVE Cutoff 200 ng/mL Benzodiazepines NEGATIVE Cutoff 200 ng/mL Cocaine NEGATIVE Cutoff 300 ng/mL (Metabolite) Opiates NEGATIVE Cutoff 300 ng/mL PCP NEGATIVE Cutoff 25 ng/mL THC POSITIVE Cutoff 50 ng/mL Comment: Results not confirmed. May not meet forensic requirements. Confirmation by GC/MS available upon request. MDMA NEGATIVE Cutoff 500 ng/mL Specimen Urine specimen (specimen) * ESTIMATED GFR (04/23/2011 2:11 PM CDT) [facility] GFR MDRD Af >59 >59 ml/min [facility] [...] body surface area. Specimen Performing Organization Address [facility] Phone Number [facility] [address] [place] [phone] [facility] * Comprehensive metabolic panel (04/23/2011 2:11 PM CDT) [facility] Albumin 4.4 3.4 - 4.8 g/dL [facility] Alkaline 119 29 - 122 U/L [facility] Phosphatase ALT 18 10 - 46 U/L [facility] AST 17 16 - 37 U/L [facility] Total Bilirubin 0.8 0.3 - 1.2 mg/dL [facility] BUN, Bld 15 6 - 20 mg/dL [facility] Calcium 9.4 8.7 - 10.5 mg/dL [facility] Chloride 107 99 - 111 mmol/L [facility] Creatinine 0.9 0.6 - 1.2 mg/dL [facility] Glucose 137 (H) 74 - 106 mg/dL [facility] Potassium 4.0 3.6 - 4.9 mmol/L [facility] Total Protein 7.2 6.4 - 8.3 g/dL [facility] Sodium 139 136 - 145 mmol/L [facility] CO2 27 20 - 36 mmol/L [facility] Specimen Blood specimen (specimen) Performing Organization Address City/[facility] Phone Number [facility] [address] [place] [address] [facility] * CBC and differential (04/23/2011 2:11 PM CDT) WBC 6.6 4.8 - 10.8 10 3/cumm [facility] RBC 4.53 4.50 - 5.90 10 [facility] 6/cumm Hemoglobin 14.3 13.5 - 17.5 g/dL [facility] Hematocrit 41.5 40.0 - 52.0 % [facility] MCV 91.7 80.0 - 100.0 fL [facility] MCH 31.5 26.0 - 34.0 pg [facility] MCHC 34.4 31.0 - 37.0 g/dL [facility] RDW 13.1 10.0 - 14.8 % [facility] Platelets 205 147 - 412 10 3/cumm [facility] MPV 8.0 6.8 - 10.0 fL [facility] Neutrophils % 63.8 40.0 - 75.0 % [facility] Lymphocytes % 28.2 22.0 - 49.0 % [facility] Monocytes % 5.8 2.0 - 9.0 % [facility] Eosinophils % 1.9 0.0 - 5.0 % [facility] Basophils % 0.3 0.0 - 2.5 % [facility] Specimen Blood specimen (specimen) Performing Organization Address City/State/Zipcode Phone Number [facility] [address] [place] [address] [facility] * CT head without contrast (04/23/2011 1:50 PM CDT) Specimen Narrative Performed At CT scan of the head without contrast: [facility] Findings: The prior study of 12 October 2008 reported evidence of old left occipital lobe infarct and age-appropriate brain atrophy. Today's study is done with 1 mm thick images at 0.7 mm interval through the calvarium. No intravenous contrast is administered. The bony structures have normal development and ossification with no acute finding. Mastoid air cells and orbital contents are symmetric and normal. There is minor localized mucosal thickening of 1-2 mm of several parafacial sinuses. The brain has moderately advanced atrophy, which is age-appropriate. There is encephalomalacia of the medial left cerebellar hemisphere and the tip of the left occipital lobe, appropriate for old infarction. There is no intracranial hemorrhage, mass, nor midline shift and there are no extra-axial fluid collections. Impression: 1. Moderate brain atrophy is at the upper limits of normal for the patient's age. 2. There is evidence of old infarction with encephalomalacia of the left occipital lobe and left cerebellar hemisphere. 3. There is no acute intracranial finding. 4. Minimal inflammatory changes of parafacial sinuses are present. 5. Findings are unchanged from the patient's prior study. 6. Results were relayed by phone to Dr. Raya at 1400 hours on 23 April 2011. Procedure Note Ed, Rad Results In - 04/24/2011 12:[address] scan of the head without contrast: Findings: The prior study of 12 October 2008 reported evidence of old left occipital lobe infarct and age-appropriate brain atrophy. Today's study is done with 1 mm thick images at 0.7 mm interval through the calvarium. No intravenous contrast is administered. The bony structures have normal development and ossification with no acute finding. Mastoid air cells and orbital contents are symmetric and normal. There is minor localized mucosal thickening of 1-2 mm of several parafacial sinuses. The brain has moderately advanced atrophy, which is age-appropriate. There is encephalomalacia of the medial left cerebellar hemisphere and the tip of the left occipital lobe, appropriate for old infarction. There is no intracranial hemorrhage, mass, nor midline shift and there are no extra-axial fluid collections. Impression: 1. Moderate brain atrophy is at the upper limits of normal for the patient's age. 2. There is evidence of old infarction with encephalomalacia of the left occipital lobe and left cerebellar hemisphere. 3. There is no acute intracranial finding. 4. Minimal inflammatory changes of parafacial sinuses are present. 5. Findings are unchanged from the patient's prior study. 6. Results were relayed by phone to Dr. Raya at 1400 hours on 23 April 2011. Performing Organization Address City/State/Zipcode Phone Number [facility] * BEDSIDE GLUCOSE - NURSE (04/23/2011 1:39 PM CDT) Bedside Glucose 152 (H) 70 - 105 mg/dL [facility] - Nurse Comment: Notify Nurse Notify Doc Specimen Performing Organization Address City/State/Zipcode Phone Number [facility] [address] [place] [phone] [facility] * EXTERNAL RADIOLOGY PROCEDURE (04/23/2011 12:00 AM CDT) Narrative Performed At Finalized by system utility as part of the [place] project clean up. Procedure Note 01/04/2016 7:47 PM DEPARTMENT CHAIR Finalized by system utility as part of the [place] project clean up. documented in this encounter Visit Diagnoses Diagnosis Acute delirium - Primary Other alteration of consciousness Altered mental status DM (diabetes mellitus) (HCC) Type II or unspecified type diabetes mellitus without mention of complication, not stated as uncontrolled Atherosclerotic cerebrovascular disease Cerebral atherosclerosis HTN (hypertension) Unspecified essential hypertension History of CVA (cerebrovascular accident) Transient ischemic attack (TIA), and cerebral infarction without residual deficits documented in this encounter Administered Medications Action Date Dose Rate Site Medication Order MAR Action 04/30/2011 2:12 AM CDT 70 mL/hr 0.9% NaCl infusion New Bag Intravenous (Continuous Infusion), CONTINUOUS, Starting Wed04/23/11 at 2045 70 mL/hr Rate/Dose Verify 04/29/2011 8:17 PM CDT 70 mL/hr New Bag 04/29/2011 11:54 AM CDT 05/05/2011 7:26 AM CDT 70 mL/hr 0.9% NaCl infusion New Bag Intravenous (Continuous Infusion), CONTINUOUS, Starting Wed05/01/11 at 0100 70 mL/hr Rate/Dose Verify 05/05/2011 6:00 AM CDT 70 mL/hr Rate/Dose Verify 05/04/2011 7:48 PM CDT 04/28/2011 9:31 AM CDT 1 g 100 mL/hr cefTRIAXone (ROCEPHIN) IV Duplex 1 g New Bag 1 g DAILY, Intravenous, Administer over 30 Minutes, First dose on Wed04/24/11 at 1515, For 6 doses 1 g 100 mL/hr New Bag 04/27/2011 9:33 AM CDT 1 g 100 mL/hr New Bag 04/26/2011 9:00 AM CDT 05/06/2011 9:17 AM CDT 75 mg clopidogrel (PLAVIX) tablet 75 mg Given 75 mg DAILY, Oral, First dose on Wed04/24/11 at 2015 75 mg Given 05/05/2011 9:23 AM CDT 75 mg Given 05/04/2011 8:11 AM CDT diphenhydrAMINE (BENADRYL) 50 MG/ML injection OVERRIDE Starting Wed04/23/11 at 1617, For 1 dose, Luis A Herrera: Jackson Override, 04/23/2011 4:28 PM CDT mg diphenhydrAMINE (BENADRYL) injection 50 Given mg STAT, 50 mg ONCE, Intravenous, [facility] 04/23/11 at 1645, For 1 dose 04/24/2011 7:52 AM CDT 1 capsule dipyridamole-aspirin (AGGRENOX) 25-200 Given MG per 12 hr capsule 1 capsule 1 capsule 2 TIMES DAILY, Oral, First dose on Zuri 04/23/11 at 2315 1 capsule Given 04/23/2011 11:32 PM CDT 05/05/2011 6:00 PM CDT 1,000 mg divalproex (DEPAKOTE ER) 24 hr tablet Given 1,000 mg 1,000 mg USER SPECIFIED (Daily), Oral, First dose on Zuri 04/30/11 at 1830 1,000 mg Given 05/04/2011 5:36 PM CDT 1,000 mg Given 05/03/2011 5:36 PM CDT 05/06/2011 9:17 AM CDT 40 mg enoxaparin (LOVENOX) injection 40 mg Given 40 mg DAILY, Subcutaneous, First dose on Zuri 04/23/11 at 2045 40 mg Given 05/05/2011 9:23 AM CDT 40 mg Given 05/04/2011 8:11 AM CDT 05/06/2011 9:18 AM CDT 2.5 mg glyBURIDE (DIABETA) tablet 2.5 mg Given 2.5 mg DAILY WITH BREAKFAST, Oral, First dose on Wed05/02/11 at 0800 2.5 mg Given 05/05/2011 9:22 AM CDT 2.5 mg Given 05/04/2011 8:10 AM CDT 05/01/2011 8:28 AM CDT 5 mg glyBURIDE (DIABETA) tablet 5 mg Given 5 mg DAILY WITH BREAKFAST, Oral, First dose on Wed04/24/11 at 0800 5 mg Given 04/30/2011 9:27 AM CDT 5 mg Given 04/29/2011 8:33 AM CDT 04/23/2011 7:57 PM CDT 2 mg haloperidol lactate (HALDOL) injection 2 Given mg STAT, 2 mg ONCE, Intravenous, [facility] 04/23/11 at 2015, For 1 dose 04/24/2011 9:39 AM CDT 2 mg haloperidol lactate (HALDOL) injection 2 Given mg 2 mg ONCE, Intravenous, Wed04/24/11 at 0945, For 1 dose 04/30/2011 9:20 PM CDT 2 mg haloperidol lactate (HALDOL) injection 2 Given mg 2 mg EVERY 2 HOURS PRN, Intravenous, severe agitation or visual hallucinations, Starting Wed04/24/11 at 1451 2 mg Given 04/29/2011 2:42 AM CDT 2 mg Given 04/27/2011 11:40 AM CDT 04/29/2011 12:36 PM CDT 2 mg haloperidol lactate (HALDOL) injection 2 Given mg 2 mg ONCE, Intravenous, Wed04/29/11 at 1215, For 1 dose 04/26/2011 4:42 PM CDT 2.5 mg haloperidol lactate (HALDOL) injection Given 2.5 mg 2.5 mg ONCE, Intravenous, Wed04/26/11 at 1630, For 1 dose 05/06/2011 9:18 AM CDT 10 mg lisinopril (PRINIVIL,ZESTRIL) tablet 10 Given mg 10 mg DAILY, Oral, First dose on Wed04/29/11 at 1215 10 mg Given 05/05/2011 9:23 AM CDT 10 mg Given 05/04/2011 8:11 AM CDT 05/05/2011 8:20 PM CDT 0.5 mg lorazepam (ATIVAN) injection 0.5 mg Given 0.5 mg EVERY 4 HOURS PRN, Intravenous, agitation, use zyprexa first if able, Starting Wed05/03/11 at 1158, Dilute immediately before use with an equal volume of sterile water, D5W or NS., 0.5 mg Given 05/04/2011 5:34 PM CDT 0.5 mg Given 05/03/2011 6:13 PM CDT 04/24/2011 1:45 AM CDT 1 mg lorazepam (ATIVAN) injection 1 mg Given 1 mg ONCE, Intravenous, Wed04/24/11 at 0145, For 1 dose, Dilute immediately before use with an equal volume of sterile water, D5W or NS., 04/30/2011 3:03 PM CDT 1 mg lorazepam (ATIVAN) injection 1 mg Given 1 mg EVERY 2 HOURS PRN, Intravenous, Anxiety, withdrawal, Starting Wed04/24/11 at 1722, 8-14 on CIWA-AR Dilute immediately before use with an equal volume of sterile water, D5W or NS., 1 mg Given 04/30/2011 12:30 PM CDT 1 mg Given 04/30/2011 12:12 AM CDT 04/26/2011 4:42 PM CDT 1 mg lorazepam (ATIVAN) injection 1 mg Given 1 mg ONCE, Intravenous, Sun 04/26/11 at 1630, For 1 dose, Dilute immediately before use with an equal volume of sterile water, D5W or NS., 04/23/2011 4:29 PM CDT 2 mg lorazepam (ATIVAN) injection 2 mg Given STAT, 2 mg ONCE, Intravenous, Zuri 04/23/11 at 1645, For 1 dose, Dilute immediately before use with an equal volume of sterile water, D5W or NS., 04/27/2011 12:23 PM CDT 2 mg lorazepam (ATIVAN) injection 2 mg Given 2 mg EVERY 1 HOUR PRN, Intravenous, Anxiety, withdrawal, Starting Wed04/24/11 at 1722, 15-20 on CIWA-AR Dilute immediately before use with an equal volume of sterile water, D5W or NS., 2 mg Given 04/27/2011 4:21 AM CDT 2 mg Given 04/27/2011 3:18 AM CDT 04/24/2011 10:00 PM CDT 2 mg lorazepam (ATIVAN) injection 2 mg Given 2 mg EVERY 30 MIN PRN, Intravenous, Anxiety, withdrawal, Starting Wed04/24/11 at 1722, >20 on CIWA-AR Dilute immediately before use with an equal volume of sterile water, D5W or NS., 04/29/2011 12:36 PM CDT 2 mg lorazepam (ATIVAN) injection 2 mg Given 2 mg ONCE, Intravenous, Wed 04/29/11 at 1215, For 1 dose, Dilute immediately before use with an equal volume of sterile water, D5W or NS., 04/30/2011 5:20 PM CDT 2 mg lorazepam (ATIVAN) tablet 2 mg Given 2 mg EVERY 2 HOURS PRN, Oral, Anxiety, withdrawal, Starting Wed04/24/11 at 1722, 8-14 on CIWA-AR, 2 mg Given 04/27/2011 9:02 AM CDT 04/24/2011 6:12 PM CDT 4 mg lorazepam (ATIVAN) tablet 4 mg Given 4 mg EVERY 30 MIN PRN, Oral, Anxiety, withdrawal, Starting Wed04/24/11 at 1722, >20 on CIWA-AR, 05/06/2011 9:18 AM CDT 500 mg metformin (GLUCOPHAGE) tablet 500 mg Given 500 mg 2 TIMES DAILY WITH MEALS, Oral, First dose on Wed04/23/11 at 2045 500 mg Given 05/05/2011 5:59 PM CDT 500 mg Given 05/05/2011 9:22 AM CDT 04/24/2011 7:52 AM CDT 500 mg metformin (GLUCOPHAGE) tablet 500 mg Given 500 mg 2 TIMES DAILY WITH MEALS, Oral, First dose on Wed04/24/11 at 0800 04/30/2011 9:30 AM CDT 1 tablet multivitamin w/minerals (CENTRUM) tablet Given TABS 1 tablet 1 tablet DAILY, Oral, First dose on Wed04/24/11 at 1745 1 tablet Given 04/29/2011 8:33 AM CDT 1 tablet Given 04/27/2011 10:19 AM CDT 05/06/2011 9:19 AM CDT 1 Units NOVOLOG (insulin aspart) (NOVOLOG) Given injection 0-28 Units 0-28 Units 4 TIMES DAILY BEFORE MEALS & NIGHTLY, Subcutaneous, First dose on Wed04/23/11 at 2345, High-alert Medication, 2 Units Left Arm Given 05/05/2011 9:31 PM CDT 2 Units Given 05/05/2011 12:40 PM CDT 04/24/2011 3:00 AM CDT 10 mg olanzapine zydis (ZYPREXA) Given disintegrating tablet 10 mg 10 mg ONCE, Sublingual, Wed04/24/11 at 0315, For 1 dose 05/06/2011 12:28 AM CDT 10 mg olanzapine zydis (ZYPREXA) Given disintegrating tablet 10 mg 10 mg 3 TIMES DAILY PRN, Sublingual, Agitation, Starting Wed04/28/11 at 1423 10 mg Given 05/04/2011 10:56 PM CDT 10 mg Given 05/04/2011 6:15 PM CDT 04/28/2011 3:10 PM CDT 20 mg olanzapine zydis (ZYPREXA) Given disintegrating tablet 20 mg 20 mg ONCE, Sublingual, 04/28/11 at 1445, For 1 dose 04/27/2011 10:34 PM CDT 5 mg olanzapine zydis (ZYPREXA) Given disintegrating tablet 5 mg 5 mg EVERY 4 HOURS PRN, Sublingual, Agitation, psychosis, Starting Wed04/24/11 at 1722 5 mg Given 04/27/2011 12:49 AM CDT 5 mg Given 04/26/2011 8:29 PM CDT 05/06/2011 9:19 AM CDT 17 g polyethylene glycol (GLYCOLAX) packet 17 Given g 17 g DAILY, Oral, First dose on Wed04/24/11 at 1715 17 g Given 05/05/2011 9:23 AM CDT 17 g Given 05/04/2011 8:11 AM CDT 05/05/2011 9:31 PM CDT 80 mg pravastatin (PRAVACHOL) tablet 80 mg Given 80 mg BEDTIME, Oral, First dose on Wed04/23/11 at 2315, P.t sub for simvastatin, 80 mg Given 05/03/2011 9:25 PM CDT 80 mg Given 05/02/2011 9:08 PM CDT 04/25/2011 5:27 PM CDT 100 mg quetiapine (SEROQUEL) tablet 100 mg Given 100 mg 3 TIMES DAILY PRN, Oral, Anxiety, Starting Wed04/24/11 at 1453 100 mg Given 04/24/2011 3:50 PM CDT 04/27/2011 9:32 PM CDT 400 mg quetiapine (SEROQUEL) tablet 400 mg Given 400 mg BEDTIME, Oral, First dose on Wed04/24/11 at 2100 400 mg Given 04/26/2011 8:29 PM CDT 400 mg Given 04/25/2011 8:26 PM CDT 05/06/2011 9:20 AM CDT 10 mLs sodium chloride 0.9 % flush 10 mL Given 10 mL EVERY 12 HOURS SCHEDULED (2 times per day), Intravenous, First dose on Wed04/23/11 at 2100, peripheral, 10 mLs Given 05/05/2011 8:20 PM CDT 10 mLs Given 05/05/2011 9:23 AM CDT 04/30/2011 9:15 PM CDT mL/hr sodium chloride 0.9 % infusion OVERRIDE New Bag Starting Wed04/30/11 at 2052, For 1 dose, Amparo Quinones: Jackson Override, 05/06/2011 9:20 AM CDT 0.4 mg tamsulosin (FLOMAX) capsule 0.4 mg Given 0.4 mg DAILY, Oral, First dose on Wed05/05/11 at 1215 0.4 mg Given 05/05/2011 6:00 PM CDT 04/23/2011 6:27 PM CDT 20 mg ziprasidone (GEODON) injection 20 mg Given STAT, 20 mg EVERY 4 HOURS PRN, Intramuscular, Agitation, Starting Zuri 04/23/11 at 1735 documented in this encounter
--- OUTSIDE RECORDS SUMMARY | 2019-05-25 03:28 | XMS REPORT | Encounter Summary ---
Author Author [facility] Organization [facility] Address Unknown Phone Unavailable Care Team Providers Care [employer] Name Role Phone PCP Unavailable Encounter Details Care Team Description Date Type Department Ramsey Valladares MD [address] [place] [address] 04/02/2011 Orders Only JORI [place], [place] Social History Date Tobacco Use Types Packs/Day Years Used Never Assessed Sex Assigned at Date Recorded Not on file Industry Job Start Date Occupation Not on file Not on file Not on file Travel End Travel History Travel Start No recent travel history available. documented as of this encounter Plan of Treatment Not on filedocumented as of this encounter Procedures Comments Procedure Name Priority Date/Time Associated Diagnosis BASIC METABOLIC PANEL Routine 04/02/2011 4:20 PM CDT documented in this encounter Results * BASIC METABOLIC PANEL (04/02/2011 4:20 PM CDT) Sodium 142 136 - 145 mmol/L [facility] Potassium 4.4 3.6 - 4.9 mmol/L [facility] Chloride 108 99 - 111 mmol/L [facility] CO2 31 20 - 36 mmol/L [facility] Glucose 139 (H) 74 - 106 mg/dL [facility] BUN, Bld 23 (H) 6 - 20 mg/dL [facility] Creatinine 1.2 0.6 - 1.2 mg/dL [facility] Calcium 9.7 8.7 - 10.5 mg/dL [facility] Specimen Narrative Performed At [facility] Performing Organization Address City/State/Zipcode Phone Number [facility] [address] [place] [address] [facility] documented in this encounter Visit Diagnoses Not on filedocumented in this encounter
--- OUTSIDE RECORDS SUMMARY | 2019-05-25 03:28 | XMS REPORT | Encounter Summary ---
Author Author [facility] Organization [facility] Address Unknown Phone Unavailable Care Team Providers Care Stone Hand Name Role Phone PCP Unavailable Encounter Details Care Team Description Date Type Department Ramsey Valladares MD [address] [facility] [place] [address] 04/02/2011 Orders Only JORI [place], [place] Social History Date Tobacco Use Types [...] Comments Procedure Name Priority Date/Time Associated Diagnosis ALT Routine 04/02/2011 4:20 PM CDT documented in this encounter Results * ALT (04/02/2011 4:20 PM CDT) ALT 16 10 - 46 U/L [facility] Specimen Narrative Performed At [facility] Performing Organization Address City/State/Zipcode Phone Number [facility] [address] [place] [address] [facility] documented in this encounter Visit Diagnoses Not on filedocumented in this encounter
--- OUTSIDE RECORDS SUMMARY | 2019-05-25 03:28 | XMS REPORT | Encounter Summary ---
Author Author [facility] Organization [facility] Address Unknown Phone Unavailable Care Team Providers Care Historic Interpreter Name Role Phone Ramsey Valladares MD PCP Encounter Details Care Team Description Date Type Department Link, Onbase 12/29/2010 [facility] HISTORICAL CONVERSION Social History Date Tobacco Use Types Packs/Day Years Used Never Assessed Sex Assigned at Date Recorded Not on file Industry Job Start Date Occupation Not on file Not on file Not on file Travel End Travel History Travel Start No recent travel history available. documented as of this encounter Progress Notes * Link, Onbase - 04/10/2013 2:13 AM CDT T documented in this encounter Plan of Treatment Not on filedocumented as of this encounter Visit Diagnoses Not on filedocumented in this encounter
--- OUTSIDE RECORDS SUMMARY | 2019-05-25 03:28 | XMS REPORT | Encounter Summary ---
Author Author [facility] Organization [facility] Address Unknown Phone Unavailable Care Team Providers Care Emblem Cutter Name Role Phone PCP Unavailable Encounter Details Care Team Description Date Type Department Ramsey Valladares MD [address] [facility] [place], [place] [id number] 04/02/2011 Orders Only JORI [place], [place] Social History Date Tobacco Use Types [...] Priority Date/Time Associated Diagnosis ESTIMATED GFR Routine 04/02/2011 4:20 PM CDT documented in this encounter Results * ESTIMATED GFR (04/02/2011 4:20 PM CDT) GFR MDRD Af >59 >59 [...] [facility] Performing Organization Address City/State/Zipcode Phone Number [facility] [address] [place] [address] [facility] documented in this encounter Visit Diagnoses Not on filedocumented in this encounter
--- OUTSIDE RECORDS SUMMARY | 2019-05-25 03:28 | XMS REPORT | Encounter Summary ---
Author Author [facility] Organization [facility] Address Unknown Phone Unavailable Care Team Providers Care Bottom Presser Name Role Phone Ramsey Valladares MD PCP Encounter Details Care Team Description Date Type Department Link, Onbase 02/23/2011 [facility] HISTORICAL CONVERSION Social History Date Tobacco Use Types Packs/Day Years Used Never Assessed Sex Assigned at Date Recorded Not on file Industry Job Start Date Occupation Not on file Not on file Not on file Travel End Travel History Travel Start No recent travel history available. documented as of this encounter Progress Notes * Link, Onbase - 04/10/2013 2:23 AM CDT T documented in this encounter Plan of Treatment Not on filedocumented as of this encounter Visit Diagnoses Not on filedocumented in this encounter
--- OUTSIDE RECORDS SUMMARY | 2019-05-25 03:28 | XMS REPORT | Encounter Summary ---
Author Author [facility] Organization [facility] Address Unknown Phone Unavailable Care Team Providers Care Oracle Applications Analyst Name Role Phone PCP Unavailable Encounter Details Care Team Description Date Type Department Ramsey Valladares MD [address] [place] [address] 04/02/2011 Orders Only JORI [place], [place] Social History Date Tobacco Use Types [...] Priority Date/Time Associated Diagnosis HEMOGLOBIN A1C Routine 04/02/2011 4:20 PM CDT documented in this encounter Results * HEMOGLOBIN A1C (04/02/2011 4:20 PM CDT) Hemoglobin A1C 7.6 (H) 4.0 - 6.0 % [facility] Comment: A1C Interpretive Guidelines: Target value=6.5% Specimen Narrative Performed At [facility] Performing Organization Address City/State/Zipcode Phone Number [facility] [address] [place], [place] [id number] [facility] documented in this encounter Visit Diagnoses Not on filedocumented in this encounter
--- OUTSIDE RECORDS SUMMARY | 2019-05-25 03:28 | XMS REPORT | Encounter Summary ---
Author Author [facility] Organization [facility] Address Unknown Phone Unavailable Care Team Providers Care Animal Caregiver Name Role Phone Ramsey Valladares MD PCP Encounter Details Care Team Description Date Type Department Ramsey Valladares MD [address] [place] [address] 04/02/2011 [facility] Doc HISTORICAL CONVERSION Social History Date Tobacco Use Types Packs/Day Years Used Never Assessed Sex Assigned at Date Recorded Not on file Industry Job Start Date Occupation Not on file Not on file Not on file Travel End Travel History Travel Start No recent travel history available. documented as of this encounter Progress Notes * Ramsey Valladares MD - 04/23/2011 1:34 PM CDT [facility] Note for Office Visit April 23, 2011 Patient: Paul Obandoclementina Provider: Ramsey Valladares MD : 1950 C-O PCP: Ramsey Valladares MD Age: 60 Years 4 Months Pain Assessment: The patient did not [...] Reaction Haldol Haloperidol Lactate Psychotic Reaction Haldol Documented by: Ely Gary PCT * Ramsey Valladares MD - 04/07/2011 11:44 AM CDT [facility] Communicate Results April 07, 2011 Name: Paul Peters Provider: Ramsey Valladares MD : 1950 C-O PCP: Ramsey Valladares MD Pharmacy: [place] [facility] [id number] Work Phone: Pharmacy: Laboratory Results: Regarding: Basic Panel Results: satisfactory Regarding: FLP: TC (204 mg/dL), HDL (49 mg/dL), LDL (128 mg/dL), TG (137 mg/dL ) Results: elevated Recommend: restart cholesterol medication Medications Brand Name Generic Name Dose Sig [...] Haloperidol Lactate Psychotic Reaction Haldol Recorded by: Eva Quintero LPN Written order, Ramsey Valladares MD Notification: Patient notified of the results by mail Notification completed: Eva Quintero LPN 04/07/2011 11:44 AM * Ramsey Valladares MD - 04/07/2011 11:44 AM CDT [facility] at [address] [place] [address] April 07, 2011 Paul Peters [address] [place] [address]- _ Dear Mr. Peters, This is a report of your recent testing. The more information that you have the better you will be able to maintain your health. If you have any questions abo ut your results please call the office at the number above. Your basic chemistry, including electrolytes, kidney function, and blood sugar w as satisfactory. The total cholesterol should normally be less than 200 mg/dL. Yours was 204 mg/dL. HDL cholesterol is considered to be your "good" cholester ol. It is recommended that your HDL be above 45 mg/dL, and higher is better. Y our HDL was 49 mg/dL. The LDL cholesterol is considered the "bad" cholesterol. The goal is to keep your LDL less than 100. If you have heart disease or guido betes the goal can be less than 70. Your LDL was 128. Your triglycerides were 137 with a target below 150. These lipid values are elevated. I would recommen d that you restart cholesterol medication. Thank you, Ramsey Valladares MD * Ramsey Valladares MD - 04/02/2011 4:07 PM CDT [facility] Orders [place]: [address] [place] [address] Patient: Paul Peters Ordering Provider: Ramsey Valladares MD [address] Address: [address] [place] [id number]- Gender: M Date of : 1950 SSN: [id number] C-O Fasting: No Priority: Routine Date Ordered: 04/02/2011 Completed by: Ely Gary PCT Specimen Collection by Lab: Date (collected): Time (collected): By Last recorded weight: 173.30 lbs (78.61 kg) Code Description Tube Dx Dx Panels BASIC [X] Basic panel (8) C 250.00 401.9 LIPID [X] Lipid panel C 250.00 401.9 Chemistry A1C [X] A1C L 250.00 401.9 ALT [X] ALT (SGPT) C 250.00 401.9 Written order, Ramsey Valladares MD / completed by: Ely Gary PCT * Ramsey Valladares MD - 04/02/2011 3:54 PM CDT [facility] Nursing Note for Office Visit April 02, 2011 Patient: Paul Peters Provider: Ramsey Valladares MD : 1950 C-O PCP: Ramsey Valladares MD Age: 60 Years 4 Months Pain Assessment: The patient is not in pain. (Pain scale used: Mankowski) Do you have any reason to suspect abuse or neglect in the home? No. Diabetic patient Nursing Comments: The patient is here for a routine follow-up appointment. Vital Signs BP: 130/90 left arm seated Weight: 173.30 lbs / 78.61 kg Medications *Medications were reviewed today Brand Name [...] Reaction Haldol Haloperidol Lactate Psychotic Reaction Haldol Documented by: Ely WHITLOCK * Ramsey Valladares MD - 04/02/2011 3:53 PM CDT [facility] [address] [place] [address] Paul Peters [address] [place] [address]- _ This is your current medication list as of April 02, 2011. Please take this list with you when you visit any Health Care Provider. Notify us of any changes at the number above and we will provide you with an updated list. Your Current Medications Brand Name Generic Name Dose Directions Lisinopril Lisinopril 40 Mg One po daily [...]
--- OUTSIDE RECORDS SUMMARY | 2019-05-25 03:28 | XMS REPORT | Encounter Summary ---
Author Author [facility] Organization [facility] Address Unknown Phone Unavailable Care Team Providers Care Customer Servicer Name Role Phone Ramsey Valladares MD PCP Encounter Details Care Team Description Date Type Department Historical, Zeyn ProviderMD [address] [place] [address] 04/02/2011 [facility] HISTORICAL CONVERSION Encounter Social History Date Tobacco Use Types Packs/Day Years Used Never Assessed Sex Assigned at Date Recorded Not on file Industry Job Start Date Occupation Not on file Not on file Not on file Travel End Travel History Travel Start No recent travel history available. documented as of this encounter Last Filed Vital Signs Reading Time Taken Comments Vital Sign 130/90 04/02/2011 3:48 PM CDT Blood Pressure - - Pulse - - Temperature - - Respiratory Rate - - Oxygen Saturation - - Inhaled Oxygen Concentration 78.6 kg (173 lb 4.8 oz) 04/02/2011 3:48 PM CDT Weight - - Height 24.87 06/25/2009 2:59 PM CDT Body Mass Index documented in this encounter Plan of Treatment Not on filedocumented as of this encounter Visit Diagnoses Not on filedocumented in this encounter
--- OUTSIDE RECORDS SUMMARY | 2019-05-25 03:28 | XMS REPORT | Encounter Summary ---
Author Author [facility] Organization [facility] Address Unknown Phone Unavailable Care Team Providers Care Farm Planner Name Role Phone PCP Unavailable Encounter Details Care Team Description Date Type Department Ramsey Valladares MD [address] [place] [address] 04/02/2011 Orders Only JORI [place], [place] Social History Date Tobacco Use Types [...] Priority Date/Time Associated Diagnosis LIPID PANEL Routine 04/02/2011 4:20 PM CDT documented in this encounter Results * LIPID PANEL (04/02/2011 4:20 PM CDT) Cholesterol 204 (H) 0 - 200 mg/dL [facility] Triglycerides 137 0 - 149 mg/dL [facility] HDL 49 40 - 90 mg/dL [facility] LDL Cholesterol 128 (H) 0 - 99 mg/dL [facility] Specimen Narrative Performed At [facility] Performing Organization Address City/State/Zipcode Phone Number [facility] [address] [place] [address] [facility] documented in this encounter Visit Diagnoses Not on filedocumented in this encounter
--- OUTSIDE RECORDS SUMMARY | 2019-05-25 03:28 | XMS REPORT | Encounter Summary ---
Author Author [facility] Organization [facility] Address Unknown Phone Unavailable Care Team Providers Care Sealing Machine Operator Name Role Phone Ramsey Valladares MD PCP Encounter Details Care Team Description Date Type Department Link, Onbase 04/23/2011 [facility] Scans HISTORICAL CONVERSION Social History Date [...] encounter Progress Notes * Link, Onbase - 04/17/2013 1:39 AM CDT T documented in this encounter Plan of Treatment Not on filedocumented as of this encounter Procedures Comments Procedure Name Priority Date/Time Associated Diagnosis IMAGING STUDY 04/26/2013 11:37 AM CDT ECHOCARDIOGRAM 04/26/2013 11:37 AM CDT IMAGING STUDY 04/26/2013 11:36 AM CDT EXTERNAL ULTRASOUND 04/26/2013 11:36 AM CDT IMAGING STUDY 04/20/2013 6:36 PM CDT ECHOCARDIOGRAM 04/20/2013 6:35 PM CDT IMAGING STUDY 04/20/2013 6:35 PM CDT EXTERNAL ULTRASOUND 04/20/2013 6:35 PM CDT documented in this encounter Results * HM IMAGING STUDY (04/26/2013 11:37 AM CDT) Narrative Performed At Procedure Note Historical, [facility] Documents - 04/25/2013 3:23 AM CDT * ECHOCARDIOGRAM (04/26/2013 11:37 AM CDT) Narrative Performed At Procedure Note Historical, [employer] Documents - 04/25/2013 3:23 AM CDT * HM EXTERNAL ULTRASOUND (04/26/2013 11:36 AM CDT) Narrative Performed At Procedure Note Historical, [employer] Documents - 04/25/2013 3:23 AM CDT * HM IMAGING STUDY (04/26/2013 11:36 AM CDT) Narrative Performed At Procedure Note Historical, [employer] Documents - 04/25/2013 3:23 AM CDT * HM IMAGING STUDY (04/20/2013 6:36 PM CDT) Narrative Performed At A scan was deleted from the Results section by N Historical [[id number]] on 04/25/2013 at5:17 PM (File: [id number]) * ECHOCARDIOGRAM (04/20/2013 6:35 PM CDT) Narrative Performed At A scan was deleted from the Results section by N Historical [[id number]] on 04/25/2013 at5:17 PM (File: [id number]) * HM EXTERNAL ULTRASOUND (04/20/2013 6:35 PM CDT) Narrative Performed At A scan was deleted from the Results section by N Historical [[id number]] on 04/25/2013 at5:17 PM (File: [id number]) * HM IMAGING STUDY (04/20/2013 6:35 PM CDT) Narrative Performed At A scan was deleted from the Results section by N Historical [[id number]] on 04/25/2013 at5:17 PM (File: [id number]) documented in this encounter Visit Diagnoses Not on filedocumented in this encounter
--- OUTSIDE RECORDS SUMMARY | 2019-05-25 03:28 | XMS REPORT | Encounter Summary ---
Author Author [facility] Organization [facility] Address Unknown Phone Unavailable Care Team Providers Care Transport Rn Name Role Phone Ramsey Valladares MD PCP Encounter Details Care Team Description Date Type Department Link, Onbase 03/05/2011 [facility] HISTORICAL CONVERSION Social History Date Tobacco Use Types Packs/Day Years Used Never Assessed Sex Assigned at Date Recorded Not on file Industry Job Start Date Occupation Not on file Not on file Not on file Travel End Travel History Travel Start No recent travel history available. documented as of this encounter Progress Notes * Link, Onbase - 04/17/2013 1:32 AM CDT T * Link, Onbase - 04/10/2013 2:23 AM CDT T documented in this encounter Plan of Treatment Not on filedocumented as of this encounter Visit Diagnoses Not on filedocumented in this encounter
--- OUTSIDE RECORDS SUMMARY | 2019-05-25 03:28 | XMS REPORT | Encounter Summary ---
Author Author [facility] Organization [facility] Address Unknown Phone Unavailable Care Team Providers Care Ammunition And Explosives Handler Name Role Phone Ramsey Valladares MD PCP Encounter Details Care Team Description Date Type Department Link, Onbase 04/25/2011 [facility] Scans HISTORICAL CONVERSION Social History Date [...] Progress Notes * Link, Onbase - 04/10/2013 2:28 AM CDT T * Link, Onbase - 04/10/2013 2:28 AM CDT T documented in this encounter Plan of Treatment Not on filedocumented as of this encounter Procedures Comments Procedure Name Priority Date/Time Associated Diagnosis HM EXTERNAL ULTRASOUND 04/17/2013 5:20 PM CDT documented in this encounter Results * EXTERNAL ULTRASOUND (04/17/2013 5:20 PM CDT) Narrative Performed At Procedure Note HistoricalO[employer] Documents - 04/10/2013 2:28 AM CDT documented in this encounter Visit Diagnoses Not on filedocumented in this encounter
--- OUTSIDE RECORDS SUMMARY | 2019-05-25 03:29 | XMS REPORT | Encounter Summary ---
Author Author [facility] Organization [facility] Address Unknown Phone Unavailable Care Team Providers Care Batch And Furnace Manager Name Role Phone Ramsey Valladares MD PCP Encounter Details Care Team Description Date Type Department Historical, Zeny ProviderMD [address] [place] [address] 07/03/2010 [facility] HISTORICAL CONVERSION Encounter Social History Date Tobacco Use Types Packs/Day Years Used Never Assessed Sex Assigned at Date Recorded Not on file Industry Job Start Date Occupation Not on file Not on file Not on file Travel End Travel History Travel Start No recent travel history available. documented as of this encounter Last Filed Vital Signs Reading Time Taken Comments Vital Sign 145/85 07/03/2010 1:04 PM CDT Blood Pressure - - Pulse - - Temperature - - Respiratory Rate - - Oxygen Saturation - - Inhaled Oxygen Concentration 78.9 kg (174 lb) 07/03/2010 1:04 PM CDT Weight - - Height 24.97 06/25/2009 2:59 PM CDT Body Mass Index documented in this encounter Plan of Treatment Not on filedocumented as of this encounter Visit Diagnoses Not on filedocumented in this encounter
--- OUTSIDE RECORDS SUMMARY | 2019-05-25 03:29 | XMS REPORT | Encounter Summary ---
Author Author [facility] Organization [facility] Address Unknown Phone Unavailable Care Team Providers Care Metal Fabricating Inspector Name Role Phone Ramsey Valladares MD PCP Encounter Details Care Team Description Date Type Department Historical, Zeny ProviderMD [address] [place] [address] 08/08/2010 [facility] HISTORICAL CONVERSION Encounter Social History Date Tobacco Use Types Packs/Day Years Used Never Assessed Sex Assigned at Date Recorded Not on file Industry Job Start Date Occupation Not on file Not on file Not on file Travel End Travel History Travel Start No recent travel history available. documented as of this encounter Last Filed Vital Signs Reading Time Taken Comments Vital Sign - - Blood Pressure - - Pulse - - Temperature - - Respiratory Rate - - Oxygen Saturation - - Inhaled Oxygen Concentration 78.9 kg (174 lb) 08/08/2010 2:25 PM CDT Weight - - Height 24.97 06/25/2009 2:59 PM CDT Body Mass Index documented in this encounter Plan of Treatment Not on filedocumented as of this encounter Visit Diagnoses Not on filedocumented in this encounter
--- OUTSIDE RECORDS SUMMARY | 2019-05-25 03:29 | XMS REPORT | Encounter Summary ---
Author Author [facility] Organization [facility] Address Unknown Phone Unavailable Care Team Providers Care Animal Nutritionist Name Role Phone Ramsey Valladares MD PCP Encounter Details Care Team Description Date Type Department Link, Onbase 2010 [facility] Sc[facility] HISTORICAL CONVERSION Social History Date Tobacco Use Types Packs/Day Years Used Never Assessed Sex Assigned at Date Recorded Not on file Industry Job Start Date Occupation Not on file Not on file Not on file Travel End Travel History Travel Start No recent travel history available. documented as of this encounter Progress Notes * Link, Onbase - 04/17/2013 1:24 AM CDT T documented in this encounter Plan of Treatment Not on filedocumented as of this encounter Visit Diagnoses Not on filedocumented in this encounter
--- OUTSIDE RECORDS SUMMARY | 2019-05-25 03:29 | XMS REPORT | Encounter Summary ---
Author Author [facility] Organization [facility] Address Unknown Phone Unavailable Care Team Providers Care Lead Mason Tender Name Role Phone Ramsey Valladares MD PCP Encounter Details Care Team Description Date Type Department Link, Onbase 11/27/2010 [facility] Scans HISTORICAL CONVERSION Social History Date Tobacco Use Types Packs/Day Years Used Never Assessed Sex Assigned at Date Recorded Not on file Industry Job Start Date Occupation Not on file Not on file Not on file Travel End Travel History Travel Start No recent travel history available. documented as of this encounter Progress Notes * Link, Onbase - 04/10/2013 2:12 AM CDT T documented in this encounter Plan of Treatment Not on filedocumented as of this encounter Visit Diagnoses Not on filedocumented in this encounter
--- OUTSIDE RECORDS SUMMARY | 2019-05-25 03:29 | XMS REPORT | Encounter Summary ---
Author Author [facility] Organization [facility] Address Unknown Phone Unavailable Care Team Providers Care Forensic Photographer Name Role Phone Ramsey Valladares MD PCP Encounter Details Care Team Description Date Type Department Link, Onbase 11/05/2010 [facility] Scans HISTORICAL CONVERSION Social History Date [...]
--- OUTSIDE RECORDS SUMMARY | 2019-05-25 03:29 | XMS REPORT | Encounter Summary ---
Author Author [facility] Organization [facility] Address Unknown Phone Unavailable Care Team Providers Care Digital Media Planner Name Role Phone Ramsey Valladares MD PCP Encounter Details Care Team Description Date Type Department Ramsey Valladares MD [address] [place] [address] 12/18/2010 Next[facility] Doc HISTORICAL CONVERSION Social History Date Tobacco Use Types Packs/Day Years Used Never Assessed Sex Assigned at Date Recorded Not on file Industry Job Start Date Occupation Not on file Not on file Not on file Travel End Travel History Travel Start No recent travel history available. documented as of this encounter Progress Notes * Ramsey Valladares MD - 12/18/2010 2:41 PM BUSINESS LINE MANAGER [facility] [address] [place] [address] December 18, 2010 RE:Paul Kendrick Lorraine [address] [place] [address]- : 1950 _ To whom it may concern, Paul is asking for free directory s ervice on his phone because he is blind. Hopefully this will help him with acti vities of daily living. Please call the office if there is any questions about t he letter or anything else. Sincerely yours, Ramsey Valladares MD NESS LINE MANAGER * Ramsey Valladares MD - 12/18/2010 2:41 PM BUSINESS LINE MANAGER [facility] Phone Note December 18, 2010 Patient: Paul Peters Provider: Ramsey Valladares MD : 1950 C-O PCP: Ramsey Valladares MD Pharmacy: [facility] [phone] Work Phone: Pharmacy: Last PE: 07/03/2010 Time of call: 12/18/2010 2:30 PM Last Lipids: 12/02/2010 Last TSH: 07/03/2010 Caller: Patient, walked in Reason for call: Question Pain Assessment: Pain assessment is not applicable. Message: asking for dr to fill out another form [facility] [employer] [facility] also asking for proof that he is blind so he can get free directory serv ice from [email or web address]. Call received by: Katherin Martinez LPN. Active [...] Haloperidol Lactate Psychotic Reaction Haldol Physician Disposition: form mailed to [employer]. okay to form a letter st ating he is blind and mail it to pt. so he can send it in with bill. do not fax it to the number given. Recorded by: Katherin Martinez LPN 12/18/2010 2:41 PM Verbal order, read back and confirmed: Ramsey Valladares MD Action Taken: letter mailed to pt. Notification Completed: Katherin Martinez LPN 12/18/2010 2:40 PM NESS LINE MANAGER documented in this encounter Plan of Treatment Not on filedocumented as of this encounter Visit Diagnoses Not on filedocumented in this encounter
--- OUTSIDE RECORDS SUMMARY | 2019-05-25 03:29 | XMS REPORT | Encounter Summary ---
Author Author [facility] Organization [facility] Address Unknown Phone Unavailable Care Team Providers Care Pillowcase Sewer Name Role Phone Ramsey Valladares MD PCP Encounter Details Care Team Description Date Type Department Ramsey Valladares MD [address] [place] [address] [phone] 07/03/2010 NextGen Doc HISTORICAL CONVERSION Social History Date Tobacco Use Types Packs/Day Years Used Never Assessed Sex Assigned at Date Recorded Not on file Industry Job Start Date Occupation Not on file Not on file Not on file Travel End Travel History Travel Start No recent travel history available. documented as of this encounter Progress Notes * Ramsey Valladares MD - 07/31/2010 1:21 PM CDT [facility] Phone Note July 31, 2010 Patient: Paul Peters Provider: Ramsey Valladares MD : 1950 C-O PCP: (use this number) Pharmacy: [facility] [id number] (Rx used) Work Phone: Pharmacy: Last PE: 07/03/2010 Time of call: 07/31/2010 1:19 PM Last Lipids: 07/03/2010 Last TSH: 07/03/2010 Caller: Patient Reason for call: Question Pain Assessment: Pain assessment is not applicable. Message: asking for an rx for chantix. states he wants to stop smoking. Call received by: Katherin Martinez LPN. Active [...] Haloperidol Lactate Psychotic Reaction Haldol Physician Disposition: Tell him he neeed to check with [facility] due to his history of bipolar depression. Recorded by: Ramsey Valladares MD Written order, Ramsey Valladares MD Action Taken: The patient acknowledged the recommendation and voiced agreement Notification Completed: Katherin HanksCatarino Martinez LPN 07/31/2010 3:27 PM * Ramsey Valladares MD - 07/04/2010 4:49 PM CDT [facility] Communicate Results July 04, 2010 Name: Paul Peters Provider: Ramsey Valladares MD : 1950 C-O PCP: Pharmacy: [place] [address] Work Phone: Pharmacy: Laboratory Results: Regarding: CBC with diff Results: normal Regarding: A1C (6.9 %) Results: okay Regarding: Comprehensive panel Results: okay Regarding: FLP: TC (212 mg/dL), HDL (40 mg/dL), LDL (116 mg/dL), TG (279 mg/dL ) Results: cholesterol and triglycerides are high Recommend: rest art simvastatin Regarding: PSA (0.51 ng/mL) Results: normal Regarding: TSH (0.772 uIU/mL) Results: normal Medications Brand Name Generic Name Dose Sig [...] Haloperidol Lactate Psychotic Reaction Haldol Recorded by: Katherin Martinez LPN Written order, Ramsey Valladares MD Notification: Patient notified of the results by mail Notification completed: Katherin Martinez LPN 07/04/2010 4:47 PM * Ramsey Valladares MD - 07/04/2010 4:49 PM CDT [facility] [address] [place] [address] July 04, 2010 Paul Peters [address] [place] [address]- _ Dear Mr. Peters, This is a report of your recent testing. The more information that you have the better you will be able to maintain your health. If you have any questions abo ut your results please call the office at the number above. Your complete blood count and differential, including hemoglobin (normally > 13.5 for males and > 12 for females), white blood cells, and platelets, was normal. The A1C is a measure of your average blood sugar control over the last couple o f months. In diabetes the goal is to keep it under 7.0%. The normal range with out diabetes is 4.0-6.0%. Your A1C was 6.9 % which is okay. Your chemistry profile, including electrolytes, blood sugar, kidney and liver f unction was okay. The Total Cholesterol is normally less than 200 mg/dL. Yours was 212 mg/dL. HD L cholesterol is considered to be your "good" cholesterol. It is recommended th at your HDL be above 45 mg/dL, and higher is better. Your HDL was 40 mg/dL. T he LDL cholesterol is considered the "bad" cholesterol. The goal is to keep you r LDL less than 100. If you have heart disease or diabetes the goal can be les s than 70. Your LDL was 116. Your triglycerides were 279 with a target below 1 50. These lipid values show that cholesterol and triglycerides are high. I wou ld recommend that you restart Simvastatin. Your PSA is believed to be a marker for prostate cancer, but can rise with incre ase in size of the prostate gland associated with age. Normal values are from 0 to 4 ng/mL. Your PSA was 0.51 ng/mL which is normal. The TSH level is a sort of reverse mirror of thyroid function. It tends to go u p when your thyroid function is lower than normal and down when it is too high. Normally it is between 0.3 and 4 uIU/mL. Your result was 0.772 uIU/mL which is normal. Thank you, Ramsey Valladares MD * Ramsey Valladares MD - 07/03/2010 1:47 PM CDT [facility] Lab [facility] [place] [address] [place] [address] Patient: Paul Peters Ordering Provider: Ramsey Valladares MD [address] Address: [address] [place] [address]- Gender: M Date of : 1950 SSN: [id number] C-O Fasting: No Priority: Routine Date Ordered: 07/03/2010 Completed by: Emely Savage PCT Specimen Collection by Lab: Date (collected): Time (collected): By Last recorded weight: 174.00 lbs (78.93 kg) Code Description Tube Dx Dx Panels COMP [X] Comprehensive panel (14) C 250.00 LIPID [X] Lipid panel C 250.00 Hematology/Coags/Blood Bank CBC [X] CBC with differential L 250.00 Urine/Semen/Stool UAIF [X] UA, culture if indicated U/V 250.00 MALB [X] Microalbumin V 250.00 Chemistry A1C [X] A1C L 250.00 ALT [X] ALT (SGPT) C 250.00 PSA [X] PSA C V76.44 TSH [X] TSH C 250.00 Written order, Ramsey Valladares MD / completed by: Emely Savage PCT * Ramsey Valladares MD - 07/03/2010 1:22 PM CDT [facility] Note for Office Visit July 03, 2010 Patient: Paul Peters Provider: Ramsey Valladares MD : 1950 C-O PCP: Age: 59 Years 7 Months Pain Assessment: The patient is not in pain. (Pain scale used: Mankowski) Do you have any reason to suspect abuse or neglect in the home? No. Diabetic patient Nursing Comments: The patient is here for a Physical Exam today. Ran out of al l medications a while ago, except Seroquel 1200mg daily Vital Signs BP: 145/85 right arm seated Weight: 174.00 lbs / 78.93 kg Medications *Medications were reviewed today Brand Name Generic Name Dose Sig Code Aggrenox Aspirin/dipyridamole 25-200mg One orally twice daily Cane Cane (blind cane) dx:369.00 Aspirin Aspirin 325 Mg One orally daily Lisinopril Lisinopril 40 Mg One po daily ( not taking ) Metformin Hcl Er Metformin Hcl 500 Mg Two po twice daily Glyburide Glyburide 5 Mg Two po twice daily Simvastatin Simvastatin 40 Mg One orally at bedtime ( not taking ) Seroquel* Quetiapine Fumarate* 100mg 800mg at hs Freestyle Test Strips Blood Sugar Diagnostic Use daily to check capillary gluco se. dx: 250.00 Allergies *Allergies were reviewed today Allergy Reaction Comment Haloperidol Psychotic Reaction Haldol Haloperidol Lactate Psychotic Reaction Haldol Documented by: Emely Savage PCT documented in this encounter Plan of Treatment Not on filedocumented as of this encounter Visit Diagnoses Not on filedocumented in this encounter
--- OUTSIDE RECORDS SUMMARY | 2019-05-25 03:29 | XMS REPORT | Encounter Summary ---
Author Author [facility] Organization [facility] Address Unknown Phone Unavailable Care Team Providers Care Composition Board Press Operator Name Role Phone PCP Unavailable Encounter Details Care Team Description Date Type Department Ramsey Valladares MD [address] [facility] [place], [place] [id number] 12/02/2010 Historical LABORATORY Orders [address] [id number] [place], [place] [id number] Social History Date Tobacco Use Types Packs/Day [...] Priority Date/Time Associated Diagnosis ESTIMATED GFR Routine 12/02/2010 11:35 AM PSYCHIATRIC NP ALT Routine 12/02/2010 11:35 AM PSYCHIATRIC NP HEMOGLOBIN A1C Routine 12/02/2010 11:35 AM PSYCHIATRIC NP LIPID PANEL Routine 12/02/2010 11:35 AM PSYCHIATRIC NP BASIC METABOLIC PANEL Routine 12/02/2010 11:35 AM PSYCHIATRIC NP documented in this encounter Results * ESTIMATED GFR (12/02/2010 11:35 AM PSYCHIATRIC NP) GFR MDRD Af >59 >59 ml/min [facility] [...] body surface area. Specimen Performing Organization Address [facility] Phone Number [facility] [address] [place] [address] [facility] * ALT (12/02/2010 11:35 AM PSYCHIATRIC NP) ALT 26 10 - 46 U/L [facility] Specimen Performing Organization Address [facility] Phone Number [facility] [address] [place] [address] [facility] * HEMOGLOBIN A1C (12/02/2010 11:35 AM PSYCHIATRIC NP) Hemoglobin A1C 9.8 (H) 4.0 - 6.0 % [facility] Comment: A1C Interpretive Guidelines: Target value=6.5% Specimen Performing Organization Address [facility] Phone Number [facility] [address] [place] [phone] [facility] * LIPID PANEL (12/02/2010 11:35 AM PSYCHIATRIC NP) Cholesterol 227 (H) 0 - 200 mg/dL [facility] Triglycerides 165 (H) 0 - 149 mg/dL [facility] HDL 46 40 - 90 mg/dL [facility] LDL Cholesterol 148 (H) 0 - 99 mg/dL [facility] Specimen Performing Organization Address [facility] Phone Number [facility] [address] [place] [address] [facility] * BASIC METABOLIC PANEL (12/02/2010 11:35 AM PSYCHIATRIC NP) Sodium 137 136 - 145 mmol/L [facility] Potassium 4.6 3.6 - 4.9 mmol/L [facility] Chloride 100 99 - 111 mmol/L [facility] CO2 32 20 - 36 mmol/L [facility] Glucose 203 (H) 74 - 106 mg/dL [facility] BUN, Bld 13 6 - 20 mg/dL [facility] Creatinine 1.1 0.6 - 1.2 mg/dL [facility] Calcium 10.2 8.7 - 10.5 mg/dL [facility] Specimen Performing Organization Address City/State/Zipcode Phone Number [facility] [address] [place], [place] [phone] [facility] documented in this encounter Visit Diagnoses Not on filedocumented in this encounter
--- OUTSIDE RECORDS SUMMARY | 2019-05-25 03:29 | XMS REPORT | Encounter Summary ---
Author Author [facility] Organization [facility] Address Unknown Phone Unavailable Care Team Providers Care Injection Molding Engineer Name Role Phone Ramsey Valladares MD PCP Encounter Details Care Team Description Date Type Department Historical, Zeny ProviderMD [address] Address [place] [address] 12/02/2010 NextGen HISTORICAL CONVERSION Encounter Social History Date Tobacco Use Types Packs/Day Years Used Never Assessed Sex Assigned at Date Recorded Not on file Industry Job Start Date Occupation Not on file Not on file Not on file Travel End Travel History Travel Start No recent travel history available. documented as of this encounter Last Filed Vital Signs Reading Time Taken Comments Vital Sign 148/90 12/02/2010 11:09 AM CORRESPONDENCE ANALYST Blood Pressure - - Pulse - - Temperature - - Respiratory Rate - - Oxygen Saturation - - Inhaled Oxygen Concentration 81.3 kg (179 lb 3.2 oz) 12/02/2010 11:09 AM CORRESPONDENCE ANALYST Weight - - Height 25.71 06/25/2009 2:59 PM CDT Body Mass Index documented in this encounter Plan of Treatment Not on filedocumented as of this encounter Visit Diagnoses Not on filedocumented in this encounter
--- OUTSIDE RECORDS SUMMARY | 2019-05-25 03:29 | XMS REPORT | Encounter Summary ---
Author Author [facility] Organization [facility] Address Unknown Phone Unavailable Care Team Providers Care Stone Crusher Operator Name Role Phone Ramsey Valladares MD PCP Encounter Details Care Team Description Date Type Department Link, Onbase 08/05/2010 NextGen Scans HISTORICAL CONVERSION Social History Date Tobacco Use Types Packs/Day Years Used Never Assessed Sex Assigned at Date Recorded Not on file Industry Job Start Date Occupation Not on file Not on file Not on file Travel End Travel History Travel Start No recent travel history available. documented as of this encounter Progress Notes * Link, Onbase - 04/17/2013 1:04 AM CDT T * Link, Onbase - 04/10/2013 1:49 AM CDT T * Link, Onbase - 04/10/2013 1:49 AM CDT T documented in this encounter Plan of Treatment Not on filedocumented as of this encounter Visit Diagnoses Not on filedocumented in this encounter
--- OUTSIDE RECORDS SUMMARY | 2019-05-25 03:29 | XMS REPORT | Encounter Summary ---
Author Author [facility] Organization [facility] Address Unknown Phone Unavailable Care Team Providers Care Ep Tech Name Role Phone Ramsey Valladares MD PCP Encounter Details Care Team Description Date Type Department Ramsey Valladares MD [address] [place] [address] 11/04/2010 NextGen Doc HISTORICAL CONVERSION Social History Date Tobacco Use Types Packs/Day Years Used Never Assessed Sex Assigned at Date Recorded Not on file Industry Job Start Date Occupation Not on file Not on file Not on file Travel End Travel History Travel Start No recent travel history available. documented as of this encounter Progress Notes * Ramsey Valladares MD - 12/04/2010 1:15 PM [facility] Communicate Results December 04, 2010 Name: Paul Peters Provider: Ramsey Valladares MD : 1950 C-O PCP: Ramsey Valladares MD (preferred number) Pharmacy: [place] [address] Work Phone: Pharmacy: Laboratory Results: Regarding: ALT Results: normal Regarding: Basic Panel Results: bs is high Regarding: FLP: TC (227 mg/dL), HDL (46 mg/dL), LDL (148 mg/dL), TG (165 mg/dL ) Results: high Regarding: A1C (9.8 %) Results: high Medications Brand Name Generic Name Dose Sig [...] Reaction Haldol Haloperidol Lactate Psychotic Reaction Haldol Provider's comments: the only thing that can be done is restart all meds and ta ke them daily. there is a high risk now of complications from htn, dm and high lipids. Comments recorded by: Katherin Martinez LPN 12/04/2010 1:09 PM. Recorded by: Katherin Martinez LPN Written order, Ramsey Valladares MD Notification: The patient was notified of the result by phone; the patient ack nowledged the recommendation and voiced agreement Notification completed: Katherin Martinez LPN 12/04/2010 1:15 PM S A [facility] * Ramsey Valladares MD - 12/02/2010 11:34 AM CLASS A [facility] Lab Orders [place]: [facility] [address] [facility] [place] [address] Patient: Paul Peters Ordering Provider: Ramsey Valladares MD [address] Address: [address] [place] [address]- Gender: M Date of : 1950 SSN: [id number] C-O Fasting: No Priority: Routine Date Ordered: 12/02/2010 Completed by: Ely Gary PCT Specimen Collection by Lab: Date (collected): Time (collected): By Last recorded weight: 179.20 lbs (81.28 kg) Code Description Tube Dx Dx Panels BASIC [X] Basic panel (8) C 250.00 401.9 LIPID [X] Lipid panel C 250.00 401.9 Chemistry A1C [X] A1C L 250.00 401.9 ALT [X] ALT (SGPT) C 250.00 401.9 Written order, Ramsey Valladares MD / completed by: Ely Gary PCT [facility] * Ramsey aVlladares MD - 12/02/2010 11:18 AM CLASS [facility] Note for Office Visit December 02, 2010 Patient: Paul Peters Provider: Ramsey Valladares MD : 1950 C-O PCP: Ramsey Valladares MD Age: 59 Years 11 Months Pain Assessment: The patient is not in pain. (Pain scale used: Mankowski) Do you have any reason to suspect abuse or neglect in the home? No. Diabetic patient Nursing Comments: The patient is here for a routine follow-up appointment. Jaylin davis has only been taking the Metformin, Seroquel, and Glyburide. Vital Signs BP: 148/90 left arm seated Weight: 179.20 lbs / 81.28 kg Medications *Medications were reviewed today Brand [...] Reaction Haldol Documented by: Ely Gary PCT [facility] Ramsey Bernal MD - 12/02/2010 11:17 AM [facility] [address] [facility] [place] [address] Paul Peters [address] [place] [address] _ This is your current medication list as of December 02, 2010. Please take this list with you when [...] information is not correct. Ramsey Valladares MD [facility] Ramsey Bernal MD - 11/04/2010 2:14 PM [facility] Nursing Note for Office Visit November 04, 2010 Patient: Paul Peters Provider: Ramsey Valladares MD : 1950 C-O PCP: Ramsey Valladares MD Age: 59 Years 11 Months Pain Assessment: The patient did not [...] Reaction Haldol Documented by: Ely Gary PCT S A [facility] documented in this encounter Plan of Treatment Not on filedocumented as of this encounter Visit Diagnoses Not on filedocumented in this encounter
--- OUTSIDE RECORDS SUMMARY | 2019-05-25 03:29 | XMS REPORT | Encounter Summary ---
Author Author [facility] Organization [facility] Address Unknown Phone Unavailable Care Team Providers Care Stereotype Finisher Name Role Phone Ramsey Valladares MD PCP Encounter Details Care Team Description Date Type Department Link, Onbase 08/13/2010 NextGen Scans HISTORICAL CONVERSION Social History Date Tobacco Use Types Packs/Day Years Used Never Assessed Sex Assigned at Date Recorded Not on file Industry Job Start Date Occupation Not on file Not on file Not on file Travel End Travel History Travel Start No recent travel history available. documented as of this encounter Progress Notes * Link, Onbase - 04/10/2013 1:48 AM CDT T documented in this encounter Plan of Treatment Not on filedocumented as of this encounter Visit Diagnoses Not on filedocumented in this encounter
--- OUTSIDE RECORDS SUMMARY | 2019-05-25 03:29 | XMS REPORT | Encounter Summary ---
Author Author [facility] Organization [facility] Address Unknown Phone Unavailable Care Team Providers Care Assistant Technician Name Role Phone Ramsey Valladares MD PCP Encounter Details Care Team Description Date Type Department Ramsey Valladares MD [address] [place] [address] [phone] 08/05/2010 NextGen Doc HISTORICAL CONVERSION Social History Date Tobacco Use Types Packs/Day Years Used Never Assessed Sex Assigned at Date Recorded Not on file Industry Job Start Date Occupation Not on file Not on file Not on file Travel End Travel History Travel Start No recent travel history available. documented as of this encounter Progress Notes * Ramsey Valladares MD - 08/08/2010 2:30 PM CD[facility] Nursing Note for Office Visit August 08, 2010 Patient: Paul Aroldo Lorraine Provider: Ramsey Valladares MD : 1950 C-O PCP: Ramsey Valladares MD Age: 59 Years 8 Months Pain Assessment: The patient is not in pain. (Pain scale used: Mankowski) Do you have any reason to suspect abuse or neglect in the home? No. Diabetic patient Nursing Comments: The patient is here with an acute problem today. Patient sta maria teresa that his corrections caseworker told him he has lice and flees Vital Signs Weight: 174.00 lbs / 78.93 kg Medications [...] Reaction Haldol Documented by: Ely Gary PCT Checked out by: Ely Gary PCT * Ramsey Valladares MD - 08/08/2010 2:30 PM CDT [facility] [address] [place] [address] Paul Peters [address] [place] [address] _ This is your current medication list as of August 08, 2010. Please take this l ist with you [...] information is not correct. Ramsey Valladares MD * Ramsey Valladares MD - 08/05/2010 10:41 AM CDT [facility] Note for Office Visit August 05, 2010 Patient: Paul Peters Provider: Ramsey Valladares MD : 1950 C-O PCP: Age: 59 Years 8 Months Pain Assessment: The patient did not [...] Reaction Haldol Documented by: Ely Gary PCT documented in this encounter Plan of Treatment Not on filedocumented as of this encounter Visit Diagnoses Not on filedocumented in this encounter
--- OUTSIDE RECORDS SUMMARY | 2019-05-25 03:29 | XMS REPORT | Encounter Summary ---
Author Author [facility] Organization [facility] Address Unknown Phone Unavailable Care Team Providers Care Counter Hop Name Role Phone PCP Unavailable Encounter Details Care Team Description Date Type Department Ramsey Valladares MD [address] [place] [address] 07/03/2010 Historical LABORATORY Orders [address] [id number] [place], [place] [id number] Social History Date Tobacco Use Types Packs/Day [...] Priority Date/Time Associated Diagnosis ESTIMATED GFR Routine 07/03/2010 1:55 PM CDT CBC AND DIFFERENTIAL Routine 07/03/2010 1:55 PM CDT TSH Routine 07/03/2010 1:55 PM CDT PSA Routine 07/03/2010 1:55 PM CDT HEMOGLOBIN A1C Routine 07/03/2010 1:55 PM CDT LIPID PANEL Routine 07/03/2010 1:55 PM CDT COMPREHENSIVE METABOLIC Routine 07/03/2010 PANEL 1:55 PM CDT documented in this encounter Results * ESTIMATED GFR (07/03/2010 1:55 PM CDT) GFR MDRD Af >59 >59 [...] body surface area. Specimen Narrative Performed At Non-fasting [facility] Performing Organization Address [facility] Phone Number [facility] [address] [place] [phone] [facility] * TSH (07/03/2010 1:55 PM CDT) [facility] TSH 0.772Comment: Please note new 0.300 - 4.000 uIU/mL [facility] reference ranges as of 12/17/2010. Specimen Narrative Performed At Non-fasting [facility] Performing Organization Address [facility] Phone Number [facility] [address] [place] [phone] [facility] * PSA (07/03/2010 1:55 PM CDT) [facility] PSA 0.51 0.0 - 4.0 ng/mL [facility] Specimen Narrative Performed At Non-fasting [facility] Performing Organization Address [facility] Phone Number [facility] [address] [place] [phone] [facility] * HEMOGLOBIN A1C (07/03/2010 1:55 PM CDT) [facility] Hemoglobin A1C 6.9 (H) 4.0 - 6.0 % [facility] Comment: A1C Interpretive Guidelines: Target value=6.5% Specimen Narrative Performed At Non-fasting [facility] Performing Organization Address [facility] Phone Number [facility] [address] [place] [phone] [facility] * CBC AND DIFFERENTIAL (07/03/2010 1:55 PM CDT) [facility] WBC 6.7 4.8 - 10.8 10 3/cumm [facility] RBC 4.90 4.50 - 5.90 10 [facility] 6/cumm Hemoglobin 15.3 13.5 - 17.5 g/dL [facility] Hematocrit 45.0 40.0 - 52.0 % [facility] MCV 91.7 80.0 - 100.0 fL [facility] MCH 31.3 26.0 - 34.0 pg [facility] MCHC 34.1 31.0 - 37.0 g/dL [facility] RDW 13.5 10.0 - 14.8 % [facility] Platelets 218 147 - 412 10 3/cumm [facility] MPV 8.0 6.8 - 10.0 fL [facility] Neutrophils % 61.6 40.0 - 75.0 % [facility] Lymphocytes % 29.7 22.0 - 49.0 % [facility] Monocytes % 6.2 2.0 - 9.0 % [facility] Eosinophils % 2.0 0.0 - 5.0 % [facility] Basophils % 0.5 0.0 - 2.5 % [facility] Specimen Narrative Performed At Non-fasting [facility] Performing Organization Address City/[facility]/Zipcode Phone Number [facility] [address] [place] [address] [facility] * LIPID PANEL (07/03/2010 1:55 PM CDT) Pathologist [facility] Cholesterol 212 (H) 0 - 200 mg/dL [facility] Triglycerides 279 (H) 0 - 149 mg/dL [facility] HDL 40 40 - 90 mg/dL [facility] LDL Cholesterol 116 (H) 0 - 99 mg/dL [facility] Specimen Narrative Performed At Non-fasting [facility] Performing Organization Address City/[facility]/Zipcode Phone Number [facility] [address] [place] [address] [facility] * COMPREHENSIVE METABOLIC PANEL (07/03/2010 1:55 PM CDT) Pathologist [facility] Albumin 4.5 3.4 - 4.8 g/dL [facility] Alkaline 124 (H) 29 - 122 U/L [facility] Phosphatase ALT 13 10 - 46 U/L [facility] AST 16 16 - 37 U/L [facility] Total Bilirubin 0.6 0.3 - 1.2 mg/dL [facility] BUN, Bld 16 6 - 20 mg/dL [facility] Calcium 9.9 8.7 - 10.5 mg/dL [facility] Chloride 103 99 - 111 mmol/L [facility] Creatinine 1.2 0.6 - 1.2 mg/dL [facility] Glucose 193 (H) 74 - 106 mg/dL [facility] Potassium 4.2 3.6 - 4.9 mmol/L [facility] Total Protein 7.4 6.4 - 8.3 g/dL [facility] Sodium 141 136 - 145 mmol/L [facility] CO2 33 20 - 36 mmol/L [facility] Specimen Narrative Performed At Non-fasting [facility] Performing Organization Address City/State/Zipcode Phone Number [facility] [address] [place] [address] [facility] documented in this encounter Visit Diagnoses Not on filedocumented in this encounter
--- OUTSIDE RECORDS SUMMARY | 2019-05-25 03:30 | XMS REPORT | Encounter Summary ---
Author Author [facility] Organization [facility] Address Unknown Phone Unavailable Care Team Providers Care Lpc Name Role Phone Ramsey Valladares MD PCP Encounter Details Care Team Description Date Type Department Link, Onbase 03/26/2010 Next[facility] Scans HISTORICAL CONVERSION Social History Date Tobacco Use Types Packs/Day Years Used Never Assessed Sex Assigned at Date Recorded Not on file Industry Job Start Date Occupation Not on file Not on file Not on file Travel End Travel History Travel Start No recent travel history available. documented as of this encounter Progress Notes * Link, Onbase - 04/10/2013 1:38 AM CDT T * Link, Onbase - 04/10/2013 1:38 AM CDT T * Link, Onbase - 04/07/2013 4:47 AM CDT T documented in this encounter Plan of Treatment Not on filedocumented as of this encounter Visit Diagnoses Not on filedocumented in this encounter
--- OUTSIDE RECORDS SUMMARY | 2019-05-25 03:30 | XMS REPORT | Encounter Summary ---
Author Author [facility] Organization [facility] Address Unknown Phone Unavailable Care Team Providers Care Terminal Operations Supervisor Name Role Phone PCP Unavailable Encounter Details Care Team Description Date Type Department Blaine Armijo MD [address] [place], [place] [phone] 05/27/2010 Historical LABORATORY Orders [address] [id number] [place], [place] [phone] Social History Date Tobacco Use Types Packs/Day [...] Comments Procedure Name Priority Date/Time Associated Diagnosis URINALYSIS, REFLEX STAT 05/27/2010 CULTURE IF NEEDED 5:05 PM CDT ESTIMATED GFR STAT 05/27/2010 4:55 PM CDT CBC AND DIFFERENTIAL STAT 05/27/2010 4:55 PM CDT COMPREHENSIVE METABOLIC STAT 05/27/2010 PANEL 4:55 PM CDT documented in this encounter Results * URINALYSIS, REFLEX CULTURE IF NEEDED (05/27/2010 5:05 PM CDT) Color, UA Yellow [facility] Appearance CLEAR [facility] Specific 1.031 (H) 1.003 - 1.030 [facility] [place], UA pH, UA 5.5 5.0 - 8.0 [facility] Protein, UA 1+ (A) NEG [facility] Glucose, UA 4+ (A) NEG [facility] Ketones, UA 2+ (A) NEG [facility] Urobilinogen, 3.0 (H) 0.0 - 1.0 EU [facility] UA Bilirubin, UA NEG NEG [facility] Hemoglobin, UA NEG NEG [facility] Leukoesterase, NEG NEG [facility] UA Nitrites, UA NEG NEG [facility] Squam Epithel, 1+ 0-1+ [facility] UA Mucous 2+ [facility] WBC, UA 0-3 0 - 3 /HPF [facility] Culture Set NOT PERFORMED [facility] RBC, UA NONE 0 - 3 /HPF [facility] Specimen Performing Organization Address [facility] Phone Number [facility] [address] [place], [place] [phone] [facility] * ESTIMATED GFR (05/27/2010 4:55 PM CDT) [facility] GFR MDRD Af >59 >59 ml/min [...] Address [facility] Phone Number [facility] [address] [place], [place] [phone] [facility] * COMPREHENSIVE METABOLIC PANEL (05/27/2010 4:55 PM CDT) [facility] Albumin 4.6 3.4 - 4.8 g/dL [facility] Alkaline 117 29 - 122 U/L [facility] Phosphatase ALT 17 10 - 46 U/L [facility] AST 25 16 - 37 U/L [facility] Total Bilirubin 1.2 0.3 - 1.2 mg/dL [facility] BUN, Bld 19 6 - 20 mg/dL [facility] Calcium 10.0 8.7 - 10.5 mg/dL [facility] Chloride 107 99 - 111 mmol/L [facility] Creatinine 1.1 0.6 - 1.2 mg/dL [facility] Glucose 162 (H) 74 - 106 mg/dL [facility] Potassium 3.8 3.6 - 4.9 mmol/L [facility] Total Protein 7.8 6.4 - 8.3 g/dL [facility] Sodium 141 136 - 145 mmol/L [facility] CO2 28 20 - 36 mmol/L [facility] Specimen Performing Organization Address [facility] Phone Number [facility] [address] [place], [place] [phone] [facility] * CBC AND DIFFERENTIAL (05/27/2010 4:55 PM CDT) WBC 8.7 4.8 - 10.8 10 3/cumm [facility] RBC 5.25 4.50 - 5.90 10 [facility] 6/cumm Hemoglobin 16.5 13.5 - 17.5 g/dL [facility] Hematocrit 48.1 40.0 - 52.0 % [facility] MCV 91.7 80.0 - 100.0 fL [facility] MCH 31.4 26.0 - 34.0 pg [facility] MCHC 34.2 31.0 - 37.0 g/dL [facility] RDW 13.8 10.0 - 14.8 % [facility] Platelets 258 147 - 412 10 3/cumm [facility] MPV 7.4 6.8 - 10.0 fL [facility] Neutrophils % 64.2 40.0 - 75.0 % [facility] Lymphocytes % 26.1 22.0 - 49.0 % [facility] Monocytes % 8.5 2.0 - 9.0 % [facility] Eosinophils % 0.3 0.0 - 5.0 % [facility] Basophils % 0.9 0.0 - 2.5 % [facility] Specimen Performing Organization Address City/[facility] Phone Number [facility] [address] [place], [place] [phone] [facility] documented in this encounter Visit Diagnoses Not on filedocumented in this encounter
--- OUTSIDE RECORDS SUMMARY | 2019-05-25 03:30 | XMS REPORT | Encounter Summary ---
Author Author [facility] Organization [facility] Address Unknown Phone Unavailable Care Team Providers Care Clinical Recruiter Name Role Phone Ramsey Valladares MD PCP Encounter Details Care Team Description Date Type Department Link, Onbase 10/16/2009 Next[facility] Scans HISTORICAL CONVERSION Social History Date Tobacco Use Types Packs/Day Years Used Never Assessed Sex Assigned at Date Recorded Not on file Industry Job Start Date Occupation Not on file Not on file Not on file Travel End Travel History Travel Start No recent travel history available. documented as of this encounter Progress Notes * Link, Onbase - 04/17/2013 12:42 PM CDT T documented in this encounter Plan of Treatment Not on filedocumented as of this encounter Visit Diagnoses Not on filedocumented in this encounter
--- OUTSIDE RECORDS SUMMARY | 2019-05-25 03:30 | XMS REPORT | Encounter Summary ---
Author Author [facility] Organization [facility] Address Unknown Phone Unavailable Care Team Providers Care Community Relations Coordinator Name Role Phone Ramsey Valladares MD PCP Encounter Details Care Team Description Date Type Department Link, Onbase 06/18/2010 Next[facility] Scans HISTORICAL CONVERSION Social History Date [...] CDT T * Link, Onbase - 04/10/2013 1:43 AM CDT T documented in this encounter Plan of Treatment Not on filedocumented as of this encounter Visit Diagnoses Not on filedocumented in this encounter
--- OUTSIDE RECORDS SUMMARY | 2019-05-25 03:30 | XMS REPORT | Encounter Summary ---
Author Author [facility] Organization [facility] Address Unknown Phone Unavailable Care Team Providers Care Felt Hanger Name Role Phone Ramsey Valladares MD PCP Encounter Details Care Team Description Date Type Department Link, Onbase 06/27/2009 Next[facility] Scans HISTORICAL CONVERSION Social History Date Tobacco Use Types Packs/Day Years Used Never Assessed Sex Assigned at Date Recorded Not on file Industry Job Start Date Occupation Not on file Not on file Not on file Travel End Travel History Travel Start No recent travel history available. documented as of this encounter Progress Notes * Link, Onbase - 04/17/2013 12:27 PM CDT T documented in this encounter Plan of Treatment Not on filedocumented as of this encounter Visit Diagnoses Not on filedocumented in this encounter
--- OUTSIDE RECORDS SUMMARY | 2019-05-25 03:30 | XMS REPORT | Encounter Summary ---
Author Author [facility] Organization [facility] Address Unknown Phone Unavailable Care Team Providers Care Overlock Elastic Attacher Name Role Phone Ramsey Valladares MD PCP Encounter Details Care Team Description Date Type Department Link, Onbase 04/28/2010 Next[facility] Scans HISTORICAL CONVERSION Social History Date [...] Onbase - 04/10/2013 1:38 AM CDT T documented in this encounter Plan of Treatment Not on filedocumented as of this encounter Visit Diagnoses Not on filedocumented in this encounter
--- OUTSIDE RECORDS SUMMARY | 2019-05-25 03:30 | XMS REPORT | Encounter Summary ---
Author Author [facility] Organization [facility] Address Unknown Phone Unavailable Care Team Providers Care Extrusion Press Supervisor Name Role Phone PCP Unavailable Encounter Details Care Team Description Date Type Department Ramsey Valladares MD [address] [facility] [place], [place] [phone] 06/13/2009 Historical LABORATORY Orders [address] [id number] [place], [place] [phone] Social History Date Tobacco Use Types Packs/Day [...] Priority Date/Time Associated Diagnosis ESTIMATED GFR Routine 06/25/2009 3:55 PM CDT PSA Routine 06/25/2009 3:55 PM CDT BASIC METABOLIC PANEL Routine 06/25/2009 3:55 PM CDT ESTIMATED GFR Routine 06/13/2009 2:55 PM CDT ALT Routine 06/13/2009 2:55 PM CDT HEMOGLOBIN A1C Routine 06/13/2009 2:55 PM CDT LIPID PANEL Routine 06/13/2009 2:55 PM CDT BASIC METABOLIC PANEL Routine 06/13/2009 2:55 PM CDT documented in this encounter Results * ESTIMATED GFR (06/25/2009 3:55 PM CDT) Pathologist [facility] GFR MDRD Af >59 >59 ml/min [facility] [...] area. Specimen Performing Organization Address [facility] Phone Number [facility] [address] [place] [phone] [facility] * PSA (06/25/2009 3:55 PM CDT) [facility] PSA 0.5 0.0 - 4.0 ng/mL [facility] Specimen Performing Organization Address [facility] Phone Number [facility] [address] [place] [phone] [facility] * BASIC METABOLIC PANEL (06/25/2009 3:55 PM CDT) Pathologist [facility] Sodium 141 136 - 145 mmol/L [facility] Potassium 4.1 3.6 - 4.9 mmol/L [facility] Chloride 106 99 - 111 mmol/L [facility] CO2 30 20 - 36 mmol/L [facility] Glucose 101 74 - 106 mg/dL [facility] BUN, Bld 18 6 - 20 mg/dL [facility] Creatinine 1.1 0.6 - 1.2 mg/dL [facility] Calcium 9.3 8.7 - 10.5 mg/dL [facility] Specimen Performing Organization Address [facility] Phone Number [facility] [address] [place] [address] [facility] * ESTIMATED GFR (06/13/2009 2:55 PM CDT) Pathologist [facility] GFR MDRD Af >59 >59 ml/min [facility] Amer GFR MDRD Non Af 52 >59 ml/min [facility] Amer Comment: Chronic Kidney Disease is defined as either kidney damage or a GFR less than 60ml/min that persists for at least 3 months. Stage 3=30-59 ml/min Stage 4=15-29 ml/min Stage 5= <15 ml/min *Patient result is normalized to ml/min/1.73 square meters of body surface area. Specimen Narrative Performed At non-fasting [facility] Performing Organization Address [facility] Phone Number [facility] [address] [place], [place] [phone] [facility] * ALT (06/13/2009 2:55 PM CDT) ALT 20 10 - 46 U/L [facility] Specimen Narrative Performed At non-fasting [facility] Performing Organization Address [facility] Phone [facility] [address] [place] [phone] [facility] * HEMOGLOBIN A1C (06/13/2009 2:55 PM CDT) Hemoglobin A1C 6.3 (H) 4.0 - 6.0 % [facility] Comment: A1C Interpretive Guidelines: Target value=6.5% Specimen Narrative Performed At non-fasting [facility] Performing Organization Address [facility] [address] [place] [phone] [facility] * LIPID PANEL (06/13/2009 2:55 PM CDT) Cholesterol 225 (H) 0 - 200 mg/dL [facility] Triglycerides 216 (H) 0 - 149 mg/dL [facility] HDL 39 (L) 40 - 90 mg/dL [facility] LDL Cholesterol 143 (H) 0 - 99 mg/dL [facility] Specimen Narrative Performed At non-fasting [facility] Performing Organization Address [facility] Phone Number [facility] [address] [place] [phone] [facility] * BASIC METABOLIC PANEL (06/13/2009 2:55 PM CDT) Sodium 142 136 - 145 mmol/L [facility] Potassium 4.7 3.6 - 4.9 mmol/L [facility] Chloride 109 99 - 111 mmol/L [facility] CO2 26 20 - 36 mmol/L [facility] Glucose 177 (H) 74 - 106 mg/dL [facility] BUN, Bld 20 6 - 20 mg/dL [facility] Creatinine 1.4 (H) 0.6 - 1.2 mg/dL [facility] Calcium 9.9 8.7 - 10.5 mg/dL [facility] Specimen Narrative Performed At non-fasting [facility] Performing Organization Address City/State/Zipcode Phone Number [facility] [address] [place] [address] [facility] documented in this encounter Visit Diagnoses Not on filedocumented in this encounter
--- OUTSIDE RECORDS SUMMARY | 2019-05-25 03:30 | XMS REPORT | Encounter Summary ---
Author Author [facility] Organization [facility] Address Unknown Phone Unavailable Care Team Providers Care Pump Erector Name Role Phone Ramsey Valladares MD PCP Encounter Details Care Team Description Date Type Department Link, Onbase 06/25/2009 Next[facility] Scans HISTORICAL CONVERSION Social History Date Tobacco Use Types Packs/Day Years Used Never Assessed Sex Assigned at Date Recorded Not on file Industry Job Start Date Occupation Not on file Not on file Not on file Travel End Travel History Travel Start No recent travel history available. documented as of this encounter Progress Notes * Link, Onbase - 04/07/2013 4:20 AM CDT T * Link, Onbase - 04/07/2013 4:20 AM CDT T documented in this encounter Plan of Treatment Not on filedocumented as of this encounter Visit Diagnoses Not on filedocumented in this encounter
--- OUTSIDE RECORDS SUMMARY | 2019-05-25 03:30 | XMS REPORT | Encounter Summary ---
Author Author [facility] Organization [facility] Address Unknown Phone Unavailable Care Team Providers Care Preservationist Name Role Phone Ramsey Valladares MD PCP Encounter Details Care Team Description Date Type Department Ramsey Valladares MD [address] [facility] [place] [address] [phone] 04/29/2010 NextGen Doc HISTORICAL CONVERSION Social History Date Tobacco Use Types Packs/Day Years Used Never Assessed Sex Assigned at Date Recorded Not on file Industry Job Start Date Occupation Not on file Not on file Not on file Travel End Travel History Travel Start No recent travel history available. documented as of this encounter Progress Notes * Ramsey Valladares MD - 04/29/2010 10:44 AM CDT [facility] Phone Note April 29, 2010 Patient: Paul Peters Provider: Ramsey Valladares MD : 1950 C-O [facility] Phone: Pharmacy: Last PE: 06/25/2009 Time of call: 04/29/2010 10:42 AM Last Lipids: 06/13/2009 Last TSH: 02/18/2009 Caller: Patient Reason for call: Clarification on treatment Pain Assessment: Pain assessment is not applicable. 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 a [employer] faxed a request to fill but did not autherize a meter. Call received by: Katherin Martinez LPN. Active [...] Haloperidol Lactate Psychotic Reaction Haldol Physician Disposition: have company refax form and dr gilbert [place] a meter. Recorded by: Katherin Martinez LPN Written order, Ramsey Valladares MD Action Taken: The patient acknowledged the recommendation and voiced agreement Notification Completed: Katherin Martinez LPN 04/29/2010 10:44 AM documented in this encounter Plan of Treatment Not on filedocumented as of this encounter Visit Diagnoses Not on filedocumented in this encounter
--- OUTSIDE RECORDS SUMMARY | 2019-05-25 03:30 | XMS REPORT | Encounter Summary ---
Author Author [facility] Organization [facility] Address Unknown Phone Unavailable Care Team Providers Care Blintze Roller Name Role Phone Ramsey Valladares MD PCP Encounter Details Care Team Description Date Type Department Historical, Zeny ProviderMD [address] Address - [place] [address] 06/13/2009 NextGen HISTORICAL CONVERSION Encounter Social History Date Tobacco Use Types Packs/Day Years Used Never Assessed Sex Assigned at Date Recorded Not on file Industry Job Start Date Occupation Not on file Not on file Not on file Travel End Travel History Travel Start No recent travel history available. documented as of this encounter Last Filed Vital Signs Reading Time Taken Comments Vital Sign 114/68 06/13/2009 2:09 PM CDT Blood Pressure - - Pulse - - Temperature - - Respiratory Rate - - Oxygen Saturation - - Inhaled Oxygen Concentration 82.3 kg (181 lb 8 oz) 06/13/2009 2:09 PM CDT Weight - - Height - - Body Mass Index documented in this encounter Plan of Treatment Not on filedocumented as of this encounter Visit Diagnoses Not on filedocumented in this encounter
--- OUTSIDE RECORDS SUMMARY | 2019-05-25 03:30 | XMS REPORT | Encounter Summary ---
Author Author [facility] Organization [facility] Address Unknown Phone Unavailable Care Team Providers Care Outreach Assistant Name Role Phone Ramsey Valladares MD PCP Encounter Details Care Team Description Date Type Department Historical, Zeny Busby MD [address] Address [place] [address] 03/27/2010 [email or web address] [facility] HISTORICAL CONVERSION Social History Date Tobacco Use Types Packs/Day Years Used Never Assessed Sex Assigned at Date Recorded Not on file Industry Job Start Date Occupation Not on file Not on file Not on file Travel End Travel History Travel Start No recent travel history available. documented as of this encounter Progress Notes * Historical, Zeny Busby MD - 03/27/2010 2:08 PM CDT [facility] Lab Results March 27, 2010 Patient: Paul Peters : 1950 PSA: 06/25/2009 03:55 PM Description Result Units Range Flags PSA 0.5 ng/mL 0.0-4.0 Estimated GFR: 06/25/2009 03:55 PM Description Result Units Range Flags pTRT-[id number] American >59 ml/min >59 eGFR- >59 ml/min >59 Comments: Chronic Kidney Disease is defined as either kidney damage or a GFR less than 60ml/min that persists for at least 3 months. Stage 3=30-59 ml/min Stage 4=15-29 ml/min Stage 5=<15 ml/min *Patient result is normalized to ml/min/1.73 square meters of body surface area. Basic Metabolic Panel: 06/25/2009 03:55 PM Description Result Units Range Flags Sodium 141 mmol/L 136-145 Potassium 4.1 mmol/L 3.6-4.9 Glucose 101 mg/dL 74-106 Creatinine 1.1 mg/dL 0.6-1.2 Chloride 106 mmol/L 99-111 Carbon Dioxide 30 mmol/L 20-36 Calcium 9.3 mg/dL 8.7-10.5 BUN 18 mg/dL 6-20 A1C: 06/13/2009 02:55 PM Description Result Units Range Flags A1C 6.3 % 4.0-6.0 H Comments: non-fasting A1C Interpretive Guidelines: Target value=6.5% Estimated GFR: 06/13/2009 02:55 PM Description Result Units Range Flags [id number]-Odj-[id number] American 52 ml/min >59 eGFR- >59 ml/min >59 Comments: non-fasting Chronic Kidney Disease is defined as either kidney damage or a GFR less than 60ml/min that persists for at least 3 months. Stage 3=30-59 ml/min Stage 4=15-29 ml/min Stage 5=<15 ml/min *Patient result is normalized to ml/min/1.73 square meters of body surface area. ALT: 06/13/2009 02:55 PM Description Result Units Range Flags ALT 20 U/L 10-46 Comments: non-fasting Lipid Panel: 06/13/2009 02:55 PM Description Result Units Range Flags Triglyceride 216 mg/dL 0-149 H Low Density Lipoprotein 143 mg/dL 0-99 H HDL Cholesterol 39 mg/dL 40-90 L Cholesterol 225 mg/dL 0-200 H Comments: non-fasting Basic Metabolic Panel: 06/13/2009 02:55 PM Description Result Units Range Flags Sodium 142 mmol/L 136-145 Potassium 4.7 mmol/L 3.6-4.9 Glucose 177 mg/dL 74-106 H Creatinine 1.4 mg/dL 0.6-1.2 H Chloride 109 mmol/L 99-111 Carbon Dioxide 26 mmol/L 20-36 Calcium 9.9 mg/dL 8.7-10.5 BUN 20 mg/dL 6-20 Comments: non-fasting A1C: 02/18/2009 02:20 PM Description Result Units Range Flags A1C 6.4 % 4.0-6.0 H Comments: non-fasting A1C Interpretive Guidelines: Target value=6.5% TSH: 02/18/2009 02:20 PM Description Result Units Range Flags TSH 1.305 uIU/mL 0.300-4.000 Comments: non-fasting Estimated GFR: 02/18/2009 02:20 PM Description Result Units Range Flags aNSW-Elm-Wxnzkos American >59 ml/min >59 eGFR- >59 ml/min >59 Comments: non-fasting Chronic Kidney Disease is defined as either kidney damage or a GFR less than 60ml/min that persists for at least 3 months. Stage 3=30-59 ml/min Stage 4=15-29 ml/min Stage 5=<15 ml/min *Patient result is normalized to ml/min/1.73 square meters of body surface area. ALT: 02/18/2009 02:20 PM Description Result Units Range Flags ALT 23 U/L 10-46 Comments: non-fasting Lipid Panel: 02/18/2009 02:20 PM Description Result Units Range Flags Triglyceride 225 mg/dL 0-149 H Low Density Lipoprotein 127 mg/dL 0-99 H HDL Cholesterol 41 mg/dL 40-90 Cholesterol 213 mg/dL 0-200 H Comments: non-fasting Basic Metabolic Panel: 02/18/2009 02:20 PM Description Result Units Range Flags Sodium 140 mmol/L 136-145 Potassium 4.6 mmol/L 3.6-4.9 Glucose 133 mg/dL 74-106 H Creatinine 0.9 mg/dL 0.6-1.2 Chloride 105 mmol/L 99-111 Carbon Dioxide 26 mmol/L 22-30 Calcium 9.6 mg/dL 8.7-10.5 BUN 17 mg/dL 6-20 Comments: non-fasting A1CR: 06/06/2008 10:10 AM Description Result Units Range Flags A1CR see below Comments: pt fasting A1C Interpretive Guidelines; Target value=6.5% A1C: 06/06/2008 10:10 AM Description Result Units Range Flags A1C 7.3 % 4.0-6.0 H Comments: pt fasting Lipid Panel: 06/06/2008 10:10 AM Description Result Units Range Flags Triglyceride 131 mg/dL 0-149 Low Density Lipoprotein 136 mg/dL 0-99 H HDL Cholesterol 44 mg/dL 40-90 Cholesterol 206 mg/dL 0-200 H Comments: pt fasting Estimated GFR: 06/06/2008 10:10 AM Description Result Units Range Flags yCIK-Fwr-Zhqxirp American >59 ml/min >59 eGFR- >59 ml/min >59 Comments: pt fasting Chronic Kidney Disease is defined as either kidney damage or a GFR less than 60ml/min that persists for at least 3 months. Stage 3=30-59 ml/min Stage 4=15-29 ml/min Stage 5=<15 ml/min *Patient result is normalized to ml/min/1.73 square meters of body surface area. Comprehensive Metabolic Panel: 06/06/2008 10:10 AM Description Result Units Range Flags Sodium 135 mmol/L 136-145 L Protein 7.5 g/dL 6.4-8.3 Potassium 4.7 mmol/L 3.6-4.9 Glucose 250 mg/dL 74-106 H Creatinine 1.2 mg/dL 0.6-1.2 Chloride 100 mmol/L 99-111 Carbon Dioxide 27 mmol/L 22-30 Calcium 9.5 mg/dL 8.7-10.5 BUN 13 mg/dL 6-20 Bilirubin,Total 1.3 mg/dL 0.3-1.2 H AST 26 U/L 16-37 ALT 27 U/L 10-46 Alkaline Phosphatase 126 U/L 29-122 H Albumin 4.6 g/dL 3.4-4.8 Comments: pt fasting CBC with Diff: 06/06/2008 10:10 AM Description Result Units Range Flags WBC 5.8 10 3/cumm 4.8-10.8 RDW 12.8 % 10.0-14.8 RBC 4.84 10 6/cumm 4.50-5.90 PLT 265 10 3/cumm 147-412 Neutrophils % 61.3 % 40.0-75.0 MPV 8.6 fL 6.8-10.0 Monocytes % 7.2 % 2.0-9.0 MCV 91.1 fL 80.0-100.0 MCHC 34.9 g/dL 31.0-37.0 MCH 31.8 pg 26.0-34.0 Lymphocytes % 28.6 % 22.0-49.0 HGB 15.4 g/dL 13.5-17.5 HCT 44.1 % 40.0-52.0 Eosinophil % 2.5 % 0.0-5.0 Basophil % 0.4 % 0.0-2.5 Comments: pt fasting Estimated GFR: 05/21/2008 10:26 AM Description Result Units Range Flags nCGQ-Efi-Tsoejko American >59 ml/min >59 eGFR- >59 ml/min >59 Comments: ?rack [id number]; NONFASTING; Chronic Kidney Disease is defined as either kidney damage or a GFR less than 60ml/min that persists for at least 3 months. Stage 3=30-59 ml/min Stage 4=15-29 ml/min Stage 5=<15 ml/min *Patient result is normalized to ml/min/1.73 square meters of body surface area. Creatinine: 05/21/2008 10:26 AM Description Result Units Range Flags Creatinine 1.1 mg/dL 0.6-1.2 Comments: ?rack [id number]; NONFASTING; A1CR: 05/07/2006 02:56 PM Description Result Units Range Flags A1CR see below Comments: A1C Interpretive Guidelines; Target value=6.5% A1C: 05/07/2006 02:56 PM Description Result Units Range Flags A1C 6.3 % 4.0-6.0 H Basic Metabolic Panel: 05/07/2006 02:56 PM Description Result Units Range Flags Sodium 143 mmol/L 136-145 Potassium 4.9 mmol/L 3.6-4.9 Glucose 117 mg/dL 74-106 H Creatinine 0.9 mg/dL 0.6-1.2 Chloride 104 mmol/L 99-111 Carbon Dioxide 32 mmol/L 22-30 H Calcium 9.7 mg/dL 8.4-10.2 BUN 16 mg/dL 6-20 A1CR: 02/01/2006 11:10 AM Description Result Units Range Flags A1CR see below Comments: A1C Interpretive Guidelines; Target value=6.5% A1C: 02/01/2006 11:10 AM Description Result Units Range Flags A1C 6.9 % 4.0-6.0 H PSA: 02/01/2006 11:10 AM Description Result Units Range Flags PSA 0.4 ng/mL 0.0-4.0 A1CR: 05/13/2005 10:30 AM Description Result Units Range Flags A1CR see below Comments: Pt fasting A1C Interpretive Guidelines; Target value=6.5% A1C: 05/13/2005 10:30 AM Description Result Units Range Flags A1C 7.0 % 4.0-6.0 H Comments: Pt fasting Basic Metabolic Panel: 05/13/2005 10:30 AM Description Result Units Range Flags Sodium 145 mmol/L 136-145 Potassium 4.7 mmol/L 3.6-4.9 Glucose 132 mg/dL 74-106 H Creatinine 1.3 mg/dL 0.7-1.5 Chloride 111 mmol/L 99-111 Carbon Dioxide 27 mmol/L 22-30 Calcium 9.6 mg/dL 8.4-10.2 BUN 13 mg/dL 6-20 Comments: Pt fasting Please note new reference range as of 12-29-04. Basic Metabolic Panel: 01/15/2005 11:20 AM Description Result Units Range Flags Sodium 139 mmol/L 136-145 Potassium 4.5 mmol/L 3.6-4.9 Glucose 185 mg/dL 74-106 H Creatinine 1.3 mg/dL 0.7-1.5 Chloride 103 mmol/L 99-111 Carbon Dioxide 28 mmol/L 22-30 Calcium 9.3 mg/dL 8.4-10.2 BUN 22 mg/dL 6-20 H Comments: Please note new reference range as of 12-29-04. A1CR: 01/15/2005 11:20 AM Description Result Units Range Flags A1CR see below Comments: A1C Interpretive Guidelines; Target value=6.5% A1C: 01/15/2005 11:20 AM Description Result Units Range Flags A1C 7.7 % 4.0-6.0 H Lipid Panel: 06/05/2003 11:40 AM Description Result Units Range Flags Low Density Lipoprotein 118 mg/dL 0-99 H HDL Cholesterol 45 mg/dL 40-90 Comments: Please note new reference range as of 12-05-2002. Lipid Panel: 06/05/2003 11:40 AM Description Result Units Range Flags Triglyceride 79 mg/dL 0-149 Cholesterol 179 mg/dL <200 Comprehensive Metabolic Panel: 06/05/2003 11:40 AM Description Result Units Range Flags Sodium 141 mmol/L 137-145 Protein 7.0 g/dL 6.0-8.0 Potassium 4.6 mmol/L 3.6-5.0 Glucose 110 mg/dL 64-110 Creatinine 1.0 mg/dL 0.8-1.5 Chloride 104 mmol/L 98-107 Carbon Dioxide 31 mmol/L 22-30 H Calcium 9.1 mg/dL 8.4-10.2 BUN 14 mg/dL 9-20 Bilirubin,Total 0.5 mg/dL 0.2-1.3 AST 31 U/L 17-59 ALT 43 U/L 21-72 Alkaline Phosphatase 91 U/L 38-126 Albumin 4.1 g/dL 3.5-5.0 PSA: 06/05/2003 11:40 AM Description Result Units Range Flags PSA 0.4 ng/mL 0.0-4.0 T documented in this encounter Plan of Treatment Not on filedocumented as of this encounter Visit Diagnoses Not on filedocumented in this encounter
--- OUTSIDE RECORDS SUMMARY | 2019-05-25 03:30 | XMS REPORT | Encounter Summary ---
Author Author [facility] Organization [facility] Address Unknown Phone Unavailable Care Team Providers Care Plane Runner Name Role Phone Ramsey Valladares MD PCP Encounter Details Care Team Description Date Type Department Link, Onbase 05/01/2010 [facility] HISTORICAL CONVERSION Social History Date Tobacco Use Types Packs/Day Years Used Never Assessed Sex Assigned at Date Recorded Not on file Industry Job Start Date Occupation Not on file Not on file Not on file Travel End Travel History Travel Start No recent travel history available. documented as of this encounter Progress Notes * Link, Onbase - 04/10/2013 1:37 AM CDT T documented in this encounter Plan of Treatment Not on filedocumented as of this encounter Visit Diagnoses Not on filedocumented in this encounter
--- OUTSIDE RECORDS SUMMARY | 2019-05-25 03:30 | XMS REPORT | Encounter Summary ---
Author Author [facility] Organization [facility] Address Unknown Phone Unavailable Care Team Providers Care Belt Knife Feeder Name Role Phone Ramsey Valladares MD PCP Encounter Details Care Team Description Date Type Department Ramsey Valladares MD [address] [place] [address] [phone] 10/14/2009 [facility] HISTORICAL CONVERSION Social History Date Tobacco Use Types Packs/Day Years Used Never Assessed Sex Assigned at Date Recorded Not on file Industry Job Start Date Occupation Not on file Not on file Not on file Travel End Travel History Travel Start No recent travel history available. documented as of this encounter Progress Notes * Ramsey Valladares MD - 10/14/2009 2[facility] Note for Office Visit October 14, 2009 Patient: Paul Peters Provider: Ramsey Valladares MD : 1950 C-O PCP: Age: 58 Years 10 Months Pain Assessment: The patient did not show for today's appointment. Medications Brand Name Generic Name Dose Sig Code Aggrenox Aspirin/dipyridamole 25-200mg One orally twice daily Cane Cane (blind cane) dx:369.00 Aspirin Aspirin 325mg One orally daily Lisinopril Lisinopril 40mg One po daily ( not taking ) Metformin Hcl Er Metformin Hcl 500mg Two po twice daily Glyburide Glyburide 5 Mg Two po twice daily Simvastatin Simvastatin 40mg One orally at bedtime ( not taking ) Seroquel* Quetiapine Fumarate* 100mg 800mg at hs Freestyle Test Strips Blood Sugar Diagnostic Use daily to check capillary gluco se. dx: 250.00 Allergies Allergy Reaction Comment Haloperidol Psychotic Reaction Haldol Haloperidol Lactate Psychotic Reaction Haldol Documented by: Ely Gary PCT SEINER documented in this encounter Plan of Treatment Not on filedocumented as of this encounter Visit Diagnoses Not on filedocumented in this encounter
--- OUTSIDE RECORDS SUMMARY | 2019-05-25 03:30 | XMS REPORT | Encounter Summary ---
Author Author [facility] Organization [facility] Address Unknown Phone Unavailable Care Team Providers Care Coat Cutter Name Role Phone Ramsey Valladares MD PCP Encounter Details Care Team Description Date Type Department Historical, Zeny Busby MD [address] Address [place] [address] 06/25/2009 [facility] HISTORICAL CONVERSION Encounter Social History Date Tobacco Use Types Packs/Day Years Used Never Assessed Sex Assigned at Date Recorded Not on file Industry Job Start Date Occupation Not on file Not on file Not on file Travel End Travel History Travel Start No recent travel history available. documented as of this encounter Last Filed Vital Signs Reading Time Taken Comments Vital Sign 114/72 06/25/2009 2:59 PM CDT Blood Pressure - - Pulse - - Temperature - - Respiratory Rate - - Oxygen Saturation - - Inhaled Oxygen Concentration 83.3 kg (183 lb 9.6 oz) 06/25/2009 2:59 PM CDT Weight 177.8 cm (5' 10") 06/25/2009 2:59 PM CDT Height 26.34 06/25/2009 2:59 PM CDT Body Mass Index documented in this encounter Plan of Treatment Not on filedocumented as of this encounter Procedures Comments Procedure Name Priority Date/Time Associated Diagnosis EKG 12-LEAD Routine 06/25/2009 documented in this encounter Results * EKG 12-LEAD (06/25/2009) EKG 12-LEAD Comment: Updated from [facility] History Specimen Performing Organization Address City/State/Zipcode Phone Number [facility] [address] [place] [address] [facility] [address] [place] [address] documented in this encounter Visit Diagnoses Not on filedocumented in this encounter
--- OUTSIDE RECORDS SUMMARY | 2019-05-25 03:30 | XMS REPORT | Encounter Summary ---
Author Author [facility] Organization [facility] Address Unknown Phone Unavailable Care Team Providers Care Linux Systems Administrator Name Role Phone Ramsey Valladares MD PCP Encounter Details Care Team Description Date Type Department Ramsey Valladares MD [address] [place] [address] [phone] 06/27/2010 [facility] HISTORICAL CONVERSION Social History Date [...]
--- OUTSIDE RECORDS SUMMARY | 2019-05-25 03:30 | XMS REPORT | Encounter Summary ---
Author Author [facility] Organization [facility] Address Unknown Phone Unavailable Care Team Providers Care Service Member Name Role Phone Ramsey Valladares MD PCP Encounter Details Care Team Description Date Type Department Link, Onbase 06/14/2009 [facility] HISTORICAL CONVERSION Social History Date [...] Priority Date/Time Associated Diagnosis HM EXTERNAL XRAY 04/18/2013 2:40 PM CDT documented in this encounter Results * EXTERNAL XRAY (04/18/2013 2:40 PM CDT) Narrative Performed At Procedure Note Historical, [employer] Documents - 04/17/2013 12:27 PM CDT documented in this encounter Visit Diagnoses Not on filedocumented in this encounter
--- OUTSIDE RECORDS SUMMARY | 2019-05-25 03:30 | XMS REPORT | Encounter Summary ---
Author Author [facility] Organization [facility] Address Unknown Phone Unavailable Care Team Providers Care Aircraft Loadmaster Superintendent Name Role Phone Ramsey Valladares MD PCP Encounter Details Care Team Description Date Type Department Ramsey Valladares MD [address] [facility] [place], [place] [id number] 06/25/2009 [facility] [place], [place] Social History Date Tobacco Use Types [...] Name Priority Date/Time Associated Diagnosis EKG 12-LEAD AMBULATORY Routine 06/25/2009 3:36 PM CDT documented in this encounter Results * EKG 12 lead Ambulatory (06/25/2009 3:36 PM CDT) Narrative Performed At documented in this encounter Visit Diagnoses Not on filedocumented in this encounter
--- OUTSIDE RECORDS SUMMARY | 2019-05-25 03:30 | XMS REPORT | Encounter Summary ---
Author Author [facility] Organization [facility] Address Unknown Phone Unavailable Care Team Providers Care Clinical Laboratory Aides Teacher Name Role Phone Ramsey Valladares MD PCP Encounter Details Care Team Description Date Type Department Ramsey Valladares MD [address] [place] [address] 06/13/2009 NextGen Doc HISTORICAL CONVERSION Social History Date Tobacco Use Types Packs/Day Years Used Never Assessed Sex Assigned at Date Recorded Not on file Industry Job Start Date Occupation Not on file Not on file Not on file Travel End Travel History Travel Start No recent travel history available. documented as of this encounter Progress Notes * Ramsey Valladares MD - 07/01/2009 4:04 PM CDT [facility] [address] [place] [address] Paul Peters [address] [place] [address]- _ This is your current medication list as of June 28, 2009. Please take this li st with you when you visit any Health Care Provider. Notify us of any changes a t the number above and we will provide you with an updated list. 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 Aspirin Aspirin 325mg One orally daily Lisinopril Lisinopril 40mg One po daily ( not taking ) Metformin Hcl Er Metformin Hcl 500mg Two po twice daily Glyburide Glyburide 5mg Two po twice daily Simvastatin Simvastatin 40mg [...] Valladares MD * Ramsey Valladares MD - 06/28/2009 2:04 PM CDT [facility] Communicate Results June 28, 2009 Name: Paul Lopezall [place] Provider: Ramsey Valladares MD : 1950 C-O PCP: Pharmacy: [place] [id number] Work Phone: Pharmacy: Laboratory Results: Regarding: Basic Panel Results: normal Regarding: PSA (0.5 ng/mL) Results: normal Medications Brand Name Generic Name Dose Sig Code Aggrenox Aspirin/dipyridamole 25-200mg One orally twice daily Cane 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 at [address] [place] [address] June 28, 2009 Paul Peters [address] [place] [address]- _ Dear Mr. Peters, This is a report of your recent testing. The more information that you have the better you will be able to maintain your health. If you have any questions abo ut your results please call the office at the number above. Your basic chemistry, including electrolytes, kidney function, and blood sugar w as normal. The PSA is believed to be a marker for prostate cancer, but can rise with incre ase in size of the prostate gland associated with age. Normal values are from 0 to 4 ng/mL. Your PSA was 0.5 ng/mL which is normal. Thank you, Ramsey Valladares MD * Ramsey Valladares MD - 06/25/2009 3:[address] [facility] [place] [address] [facility] [place] [address] Patient: Paul Peters Ordering Provider: Ramsey Valladares MD 178 Address: [address] [place], [place] [address] [place] [address]- Gender: M Date of : 1950 SSN: [id number] C-O Fasting: No Priority: Routine Date Ordered: 06/25/2009 Completed by: Ely Gary PCT Specimen Collection by Lab: Date (collected): Time (collected): By Code Description Tube Dx Dx Panels BASIC [X] Basic panel (8) C 401.9 250.00 Chemistry PSA [X] PSA C V76.44 * Ramsey Valladares MD - 06/25/2009 3:22 PM CDT [facility] X-Ray Order Form June 25, 2009 Patient: Paul Peters : 1950 C-O [address] [facility] Home phone: Gender: Male [place] [address]- Date of Exam: 06/25/2009 Encounter Nbr: [id number] Ordering Provider: Ramsey Valladares MD [facility] Provider will interpret. History / Symptoms HTN Insurance Medicare [employer] [place] [id number] Group number: [id number] The insurance is active. Subscriber: Paul Peters X-RAY ORDERS [id number] Chest, PA & Lateral Lab tests ordered same day, too. Provider: Ramsey Valladares MD / completed by Ely Gary PCT * Ramsey Valladares MD - 06/25/2009 3:07 PM CDT [facility] Nursing Note for Office Visit June 25, 2009 Patient: Paul Aroldoleonard Peters Provider: Ramsey Valladares MD : 1950 O PCP: Age: 58 Years 6 Months Pain Assessment: The patient is not in pain. (Pain scale used: Mankowski) Nursing Comments: The patient is here for a Physical Exam today. 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 dx: 250.00 Allergies *Allergies were reviewed today Allergy Reaction Comment Haloperidol Psychotic Reaction Haldol Haloperidol Lactate Psychotic Reaction Haldol Documented by: Ely Gary [facility] * Ramsey Valladares MD - 06/25/2009 3:[address] [facility] [address] [facility] [place] [address] Paul Peters [address] [place] [address]- _ This is your current medication list as of June 25, 2009. Please take this li st with you when you visit any Health Care Provider. Notify us of any changes a t the number above and we will provide you with an updated list. 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 Lab Orders [place]: [facility] [address] [facility] [place] [address] Patient: Paul Peters Ordering Provider: Ramsey Valladares MD [address] Address: [facility] [place] [address]- Gender: M Date of : 1950 SSN: [id number] C-O Fasting: No Priority: Routine Date Ordered: 06/14/2009 Completed by: Katherin Martinez LPN Specimen Collection by Lab: Date (collected): Time (collected): By Code Description Tube Dx Dx Chemistry BUN [X] BUN C 794.4 CREA [X] Creatinine C 794.4 * Ramsey Valladares MD - 06/14/2009 4:10 PM CDT [facility] Communicate Results June 14, 2009 Name: Paul Peters Provider: Ramsey Valladares MD : 1950 C-O PCP: (preferred number) Pharmacy: [place] [address] Work Phone: Pharmacy: Laboratory Results: Regarding: A1C (6.3 %) Results: okay Regarding: Basic Panel Results: mildly elevated kidney function test. Recommend: drink more water to help kidney function. Repeat: bun/cr . in 1 week Regarding: FLP: TC (143 mg/dL), HDL (39 mg/dL), LDL (225 mg/dL), TG (216 mg/dL ) Results: high Recommend: restart simvastatin to reduce chol. 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 Notification completed: Katherin Martinez LPN 06/14/2009 4:09 PM * Ramsey Valladares MD - 06/14/2009 2:00 PM CDT [facility] Lab Results Last 2 Weeks June 14, 2009 Patient: Paul Peters : 1950 A1C: 06/13/2009 02:55 PM Description Result Units Range Flags A1C 6.3 % 4.0-6.0 H Comments: non-fasting A1C Interpretive Guidelines: Target value=6.5% Estimated GFR: 06/13/2009 02:55 PM Description Result Units Range Flags [id number] American 52 ml/min >59 eGFR- >59 ml/min [...] 8.7-10.5 BUN 20 mg/dL 6-20 Comments: non-fasting * Ramsey Valladares MD - 06/13/2009 3:29 PM CDT [facility] Phone Note June 13, 2009 Patient: Paul Peters Provider: Ramsey Valladares MD : 1950 C-O PCP: Pharmacy: [facility] [id number] (Rx used) Work Phone: Pharmacy: Time of call: 06/13/2009 3:28 PM Last Lipids: 02/18/2009 Caller: Patient, walked in Last TSH: 02/18/2009 Reason for call: Medication refill Pain Assessment: Pain assessment is not applicable. Message: pt is asking for a refill on aggrenox? Call received by: Katherin Martinez LPN. 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 dx: 250.00 Allergies Allergy Reaction Comment Haloperidol Psychotic Reaction Haldol Haloperidol Lactate Psychotic Reaction Haldol Physician Disposition: okay. Recorded by: Katherin Martinez LPN Written order, Ramsey Valladares MD Medications Prescribed or Refilled Today Brand Name Dose Sig Code Quantity Refills Samples Aggrenox 25-200mg One orally twice daily 60 11 N Action Taken: The prescription was sent to the pharmacy via eRx Notification Completed: Katherin Martinez AMBROSIO 06/13/2009 4:10 PM * Ramsey Valladares MD - 06/13/2009 2:[address] Lab Orders [place]: [address] [place] [address] Patient: Paul Peters Ordering Provider: Ramsey Valladares MD 178 Address: [address] [place] [address]- Gender: M Date of : 1950 SSN: [id number] C-O Fasting: No Priority: Routine Date Ordered: 06/13/2009 Completed by: Ely Gary PCT Specimen Collection by Lab: Date (collected): Time (collected): By Code Description Tube Dx Dx Panels BASIC [X] Basic panel (8) C 250.00 LIPID [X] Lipid panel C 250.00 Chemistry A1C [X] A1C L 250.00 ALT [X] ALT (SGPT) C 250.00 * Ramsey Valladares MD - 06/13/2009 2:15 PM CDT [facility] Note for Office Visit June 13, 2009 Patient: Paul Peters Provider: Ramsey Valladares MD : 1950 C-O PCP: Age: 58 Years 6 Months Pain Assessment: The patient is not in pain. (Pain scale used: Mankowski) Do you have any reason to suspect abuse or neglect in the home? No. 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 Please take this li st with you when you visit any Health Care Provider. Notify us of any changes a t the number above and we will provide you with an updated list. 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
--- OUTSIDE RECORDS SUMMARY | 2019-05-25 03:31 | XMS REPORT | Encounter Summary ---
Author Author [facility] Organization [facility] Address Unknown Phone Unavailable Care Team Providers Care Waiter/Waitress Cabin Class Name Role Phone Ramsey Valladares MD PCP Encounter Details Care Team Description Date Type Department Link, Onbase 01/15/2009 NextGen Scans HISTORICAL CONVERSION Social History Date [...] Procedure Name Priority Date/Time Associated Diagnosis EXTERNAL LAB TEST 04/15/2013 1:59 PM CDT documented in this encounter Results * EXTERNAL LAB TEST (04/15/2013 1:59 PM CDT) Narrative Performed At Procedure Note Historical, Nextgen Documents - 04/07/2013 4:10 AM CDT documented in this encounter Visit Diagnoses Not on filedocumented in this encounter
--- OUTSIDE RECORDS SUMMARY | 2019-05-25 03:31 | XMS REPORT | Encounter Summary ---
Author Author [facility] Organization [facility] Address Unknown Phone Unavailable Care Team Providers Care Framing Mill Operator Helper Name Role Phone PCP Unavailable Encounter Details Care Team Description Date Type Department Katie Ram MD [address] [place] [address] [phone] 06/04/2009 Historical LABORATORY Orders [id number] [address] Social History Date Tobacco Use Types Packs/Day [...] Associated Diagnosis BEDSIDE GLUCOSE - NURSE Routine 06/05/2009 6:27 AM CDT BEDSIDE GLUCOSE - NURSE Routine 06/04/2009 6:01 PM CDT DRUG SCREEN (8) MEDICAL Routine 06/04/2009 7:00 AM CDT ESTIMATED GFR Routine 06/04/2009 6:49 AM CDT TSH (REFLEX FREE T4 IF Routine 06/04/2009 ABNORMAL) 6:49 AM CDT CBC AND DIFFERENTIAL Routine 06/04/2009 6:49 AM CDT HEMOGLOBIN A1C Routine 06/04/2009 6:49 AM CDT LIPID PANEL Routine 06/04/2009 6:49 AM CDT COMPREHENSIVE METABOLIC Routine 06/04/2009 PANEL 6:49 AM CDT BEDSIDE GLUCOSE - NURSE Routine 06/04/2009 6:16 AM CDT documented in this encounter Results * BEDSIDE GLUCOSE - NURSE (06/05/2009 6:27 AM CDT) Bedside Glucose 87 70 - 105 mg/dL [facility] - Nurse Specimen Performing Organization Address [facility] Phone Number [facility] [address] [place] [phone] [facility] * BEDSIDE GLUCOSE - NURSE (06/04/2009 6:01 PM CDT) Bedside Glucose 85 70 - 105 mg/dL [facility] - Nurse Comment: 2PIC ID'sConf Notify Nurse Specimen Performing Organization Address [facility] Phone Number [facility] [address] [place] [phone] [facility] * DRUG SCREEN (8) MEDICAL (06/04/2009 7:00 AM CDT) Amphetamine NEGATIVE Cutoff 1000 ng/mL [facility] Barbiturates NEGATIVE Cutoff 200 ng/mL [facility] Benzodiazepines NEGATIVE Cutoff 200 ng/mL [facility] Cocaine NEGATIVE Cutoff 300 ng/mL [facility] (Metabolite) Opiates NEGATIVE Cutoff 300 ng/mL [facility] PCP NEGATIVE Cutoff 25 ng/mL [facility] THC NEGATIVE Cutoff 50 ng/mL [facility] MDMA NEGATIVE Cutoff 500 ng/mL [facility] Specimen Performing Organization Address [facility] Phone Number [facility] [address] [place], [place] [phone] [facility] * ESTIMATED GFR (06/04/2009 6:49 AM CDT) GFR MDRD Af >59 >59 [...] body surface area. Specimen Performing Organization Address [facility] Phone Number [facility] [address] [place] [phone] [facility] * LIPID PANEL (06/04/2009 6:49 AM CDT) Cholesterol 214 (H) 0 - 200 mg/dL [facility] Triglycerides 176 (H) 0 - 149 mg/dL [facility] HDL 42 40 - 90 mg/dL [facility] LDL Cholesterol 137 (H) 0 - 99 mg/dL [facility] Specimen Performing Organization Address [facility] Phone Number [facility] [address] [place] [phone] [facility] * TSH (REFLEX FREE T4 IF ABNORMAL) (06/04/2009 6:49 AM CDT) TSH 3.122 0.300 - 4.000 uIU/mL [facility] Specimen Performing Organization Address [facility] Phone Number [facility] [address] [place] [phone] [facility] * COMPREHENSIVE METABOLIC PANEL (06/04/2009 6:49 AM CDT) Albumin 5.1 (H) 3.4 - 4.8 g/dL [facility] Alkaline 110 29 - 122 U/L [facility] Phosphatase ALT 19 10 - 46 U/L [facility] AST 22 16 - 37 U/L [facility] Total Bilirubin 0.6 0.3 - 1.2 mg/dL [facility] BUN, Bld 14 6 - 20 mg/dL [facility] Calcium 10.3 8.7 - 10.5 mg/dL [facility] Chloride 108 99 - 111 mmol/L [facility] Creatinine 1.0 0.6 - 1.2 mg/dL [facility] Glucose 159 (H) 74 - 106 mg/dL [facility] Potassium 4.7 3.6 - 4.9 mmol/L [facility] Total Protein 8.3 6.4 - 8.3 g/dL [facility] Sodium 142 136 - 145 mmol/L [facility] CO2 21 20 - 36 mmol/L [facility] Specimen Performing Organization Address [facility] Phone Number [facility] [address] [place] [phone] [facility] * CBC AND DIFFERENTIAL (06/04/2009 6:49 AM CDT) WBC 7.6 4.8 - 10.8 10 3/cumm [facility] RBC 5.01 4.50 - 5.90 10 [facility] 6/cumm Hemoglobin 15.7 13.5 - 17.5 g/dL [facility] Hematocrit 46.1 40.0 - 52.0 % [facility] MCV 92.1 80.0 - 100.0 fL [facility] MCH 31.3 26.0 - 34.0 pg [facility] MCHC 34.0 31.0 - 37.0 g/dL [facility] RDW 14.3 10.0 - 14.8 % [facility] Platelets 276 147 - 412 10 3/cumm [facility] MPV 8.5 6.8 - 10.0 fL [facility] Neutrophils % 55.1 40.0 - 75.0 % [facility] Lymphocytes % 35.9 22.0 - 49.0 % [facility] Monocytes % 6.6 2.0 - 9.0 % [facility] Eosinophils % 2.2 0.0 - 5.0 % [facility] Basophils % 0.2 0.0 - 2.5 % [facility] Specimen Performing Organization Address [facility] Phone Number [facility] [address] [place] [phone] [facility] * HEMOGLOBIN A1C (06/04/2009 6:49 AM CDT) Hemoglobin A1C 6.4 (H) 4.0 - 6.0 % [facility] Comment: A1C Interpretive Guidelines: Target value=6.5% Specimen Performing Organization Address [facility] Phone Number [facility] [address] [place] [phone] [facility] * BEDSIDE GLUCOSE - NURSE (06/04/2009 6:16 AM CDT) Bedside Glucose 138 (H) 70 - 105 mg/dL [facility] - Nurse Comment: 2PIC ID'sConf Notify Nurse Specimen Performing Organization Address [facility] Phone Number [facility] [address] [place] [phone] [facility] documented in this encounter Visit Diagnoses Not on filedocumented in this encounter
--- OUTSIDE RECORDS SUMMARY | 2019-05-25 03:31 | XMS REPORT | Encounter Summary ---
Author Author [facility] Organization [facility] Address Unknown Phone Unavailable Care Team Providers Care Tourist Information Assistant Name Role Phone Ramsey Valladares MD PCP Encounter Details Care Team Description Date Type Department Historical, Zeny ProviderMD [address] Address [place] [address] [facility] HISTORICAL CONVERSION Encounter Social History Date [...] Comments Procedure Name Priority Date/Time Associated Diagnosis COLONOSCOPY Routine 06/29/2003 documented in this encounter Results * COLONOSCOPY (06/29/2003) Colonoscopy Comment: Updated from [facility] MEDICAL History CLINIC LAB Specimen Performing Organization Address City/State/Zipcode Phone Number [facility] [address] [facility] [address] [place] [address] [facility] [address] [facility] [place] [address] documented in this encounter Visit Diagnoses Not on filedocumented in this encounter
--- OUTSIDE RECORDS SUMMARY | 2019-05-25 03:31 | XMS REPORT | Encounter Summary ---
Author Author [facility] Organization [facility] Address Unknown Phone Unavailable Care Team Providers Care Associate Professor Of Law Name Role Phone Ramsey Valladares MD PCP Encounter Details Care Team Description Date Type Department Link, Onbase 05/02/2009 Next[facility] Scans HISTORICAL CONVERSION Social History Date Tobacco Use Types Packs/Day Years Used Never Assessed Sex Assigned at Date Recorded Not on file Industry Job Start Date Occupation Not on file Not on file Not on file Travel End Travel History Travel Start No recent travel history available. documented as of this encounter Progress Notes * Link, Onbase - 04/07/2013 4:14 AM CDT T documented in this encounter Plan of Treatment Not on filedocumented as of this encounter Visit Diagnoses Not on filedocumented in this encounter
--- OUTSIDE RECORDS SUMMARY | 2019-05-25 03:31 | XMS REPORT | Encounter Summary ---
Author Author [facility] Organization [facility] Address Unknown Phone Unavailable Care Team Providers Care Recreation Therapist Name Role Phone Ramsey Valladares MD PCP Encounter Details Care Team Description Date Type Department Ramsey Valladares MD [address] [place] [address] [phone] 11/19/2008 [facility] HISTORICAL CONVERSION Social History Date Tobacco Use Types Packs/Day Years Used Never Assessed Sex Assigned at Date Recorded Not on file Industry Job Start Date Occupation Not on file Not on file Not on file Travel End Travel History Travel Start No recent travel history available. documented as of this encounter Progress Notes * Historical, Zeny ProviderMD - 12/04/2008 2:57 PM [facility] Lab Results Last 999 days December 04, 2008 Patient: Paul Kendrick. Lorraine : 1950 A1CR: 06/06/2008 10:10 AM Description Result Units Range Flags Collect Date A1CR see below 06/06/2008 02:27 PM Comments: pt fasting A1C Interpretive Guidelines; Target value=6.5% A1C: 06/06/2008 10:10 AM Description Result Units Range Flags Collect Date A1C 7.3 % 4.0-6.0 H 06/06/2008 02:27 PM Comments: pt fasting Lipid Panel: 06/06/2008 10:10 AM Description Result Units Range Flags Collect Date Triglyceride 131 mg/dL 0-149 06/06/2008 11:37 AM Low Density Lipoprotein 136 mg/dL 0-99 H 06/06/2008 11:37 AM HDL Cholesterol 44 mg/dL 40-90 06/06/2008 11:37 AM Cholesterol 206 mg/dL 0-200 H 06/06/2008 11:37 AM Comments: pt fasting Estimated GFR: 06/06/2008 10:10 AM Description Result Units Range Flags Collect Date rALL-Wzz-Oggjbaw American >59 ml/min >59 06/06/2008 11:37 AM eGFR- >59 ml/min >59 06/06/2008 11:37 AM Comments: pt fasting Chronic Kidney Disease is defined as either kidney damage or a GFR less than 60ml/min that persists for at least 3 months. Stage 3=30-59 ml/min Stage 4=15-29 ml/min Stage 5=<15 ml/min *Patient result is normalized to ml/min/1.73 square meters of body surface area. Comprehensive Metabolic Panel: 06/06/2008 10:10 AM Description Result Units Range Flags Collect Date Sodium 135 mmol/L 136-145 L 06/06/2008 11:37 AM Protein 7.5 g/dL 6.4-8.3 06/06/2008 11:37 AM Potassium 4.7 mmol/L 3.6-4.9 06/06/2008 11:37 AM Glucose 250 mg/dL 74-106 H 06/06/2008 11:37 AM Creatinine 1.2 mg/dL 0.6-1.2 06/06/2008 11:37 AM Chloride 100 mmol/L 99-111 06/06/2008 11:37 AM Carbon Dioxide 27 mmol/L 22-30 06/06/2008 11:37 AM Calcium 9.5 mg/dL 8.7-10.5 06/06/2008 11:37 AM BUN 13 mg/dL 6-20 06/06/2008 11:37 AM Bilirubin,Total 1.3 mg/dL 0.3-1.2 H 06/06/2008 11:37 AM AST 26 U/L 16-37 06/06/2008 11:37 AM ALT 27 U/L 10-46 06/06/2008 11:37 AM Alkaline Phosphatase 126 U/L 29-122 H 06/06/2008 11:37 AM Albumin 4.6 g/dL 3.4-4.8 06/06/2008 11:37 AM Comments: pt fasting CBC with Diff: 06/06/2008 10:10 AM Description Result Units Range Flags Collect Date WBC 5.8 10 3/cumm 4.8-10.8 06/06/2008 11:16 AM RDW 12.8 % 10.0-14.8 06/06/2008 11:16 AM RBC 4.84 10 6/cumm 4.50-5.90 06/06/2008 11:16 AM PLT 265 10 3/cumm 147-412 06/06/2008 11:16 AM Neutrophils % 61.3 % 40.0-75.0 06/06/2008 11:16 AM MPV 8.6 fL 6.8-10.0 06/06/2008 11:16 AM Monocytes % 7.2 % 2.0-9.0 06/06/2008 11:16 AM MCV 91.1 fL 80.0-100.0 06/06/2008 11:16 AM MCHC 34.9 g/dL 31.0-37.0 06/06/2008 11:16 AM MCH 31.8 pg 26.0-34.0 06/06/2008 11:16 AM Lymphocytes % 28.6 % 22.0-49.0 06/06/2008 11:16 AM HGB 15.4 g/dL 13.5-17.5 06/06/2008 11:16 AM HCT 44.1 % 40.0-52.0 06/06/2008 11:16 AM Eosinophil % 2.5 % 0.0-5.0 06/06/2008 11:16 AM Basophil % 0.4 % 0.0-2.5 06/06/2008 11:16 AM Comments: pt fasting Estimated GFR: 05/21/2008 10:26 AM Description Result Units Range Flags Collect Date lLFD-Dpr-Ovfdbrd American >59 ml/min >59 05/21/2008 11:15 AM eGFR- >59 ml/min >59 05/21/2008 11:15 AM Comments: ?rack [id number]; NONFASTING; Chronic Kidney Disease is defined as either kidney damage or a GFR less than 60ml/min that persists for at least 3 months. Stage 3=30-59 ml/min Stage 4=15-29 ml/min Stage 5=<15 ml/min *Patient result is normalized to ml/min/1.73 square meters of body surface area. Creatinine: 05/21/2008 10:26 AM Description Result Units Range Flags Collect Date Creatinine 1.1 mg/dL 0.6-1.2 05/21/2008 11:15 AM Comments: ?rack [id number]; NONFASTING; A1CR: 05/07/2006 02:56 PM Description Result Units Range Flags Collect Date A1CR see below 05/07/2006 05:36 PM Comments: A1C Interpretive Guidelines; Target value=6.5% A1C: 05/07/2006 02:56 PM Description Result Units Range Flags Collect Date A1C 6.3 % 4.0-6.0 H 05/07/2006 05:36 PM Basic Metabolic Panel: 05/07/2006 02:56 PM Description Result Units Range Flags Collect Date Sodium 143 mmol/L 136-145 05/07/2006 05:20 PM Potassium 4.9 mmol/L 3.6-4.9 05/07/2006 05:20 PM Glucose 117 mg/dL 74-106 H 05/07/2006 05:20 PM Creatinine 0.9 mg/dL 0.6-1.2 05/07/2006 05:20 PM Chloride 104 mmol/L 99-111 05/07/2006 05:20 PM Carbon Dioxide 32 mmol/L 22-30 H 05/07/2006 05:20 PM Calcium 9.7 mg/dL 8.4-10.2 05/07/2006 05:20 PM BUN 16 mg/dL 6-20 05/07/2006 05:20 PM Ramsey Moya MD - 11/20/2008 1:02 PM [facility] Communicate Results November 20, 2008 Name: Paul Peters Provider: Ramsey Valladares MD : 1950 C-O PCP: Pharmacy: [place] [id number] Work Phone: Pharmacy: Medications Brand Name Generic Name Dose Sig Code Viagra Sildenafil Citrate 50mg One orally one hour before intercourse Aspirin Aspirin 325mg One orally daily Lisinopril [...] Haloperidol Lactate Psychotic Reaction Haldol Provider's comments: see urologist for a vaccum device for ed. Comments nils rded by: Katherin Martinez LPN 11/20/2008 1:01 PM. Recorded by: Katherin Martinez LPN Written order, Ramsey Valladares MD Notification: Patient declined the recommendation Notification completed: Katherin Martinez LPN 11/20/2008 1:01 PM AL CLIMATE CHANGE RESEARCHER Ramsey Bernal MD - 11/20/2008 9:55 AM GLOBAL CLIMATE CHANGE RESEARCHER [facility] Phone Note November 20, 2008 Patient: Paul Peters Provider: Ramsey Valladares MD : 1950 C-O PCP: Pharmacy: [id number] (Rx used) Work Phone: Pharmacy: Time of call: 11/20/2008 9:54 AM Caller: dr cuello office Reason for call: FYI Pain Assessment: Pain assessment is not applicable. Message: pt. should not take viagra. Call received by: Katherin Martinez LPN. Active Medications Brand Name Generic Name Dose Sig Code Viagra Sildenafil Citrate 50mg One orally one hour before intercourse Aspirin Aspirin 325mg One orally daily Lisinopril [...] Haloperidol Lactate Psychotic Reaction Haldol Physician Disposition: cx viagra rx. Recorded by: Katherin Martinez LPN Written order, Ramsey Valladares MD Action Taken: pharmacy and pt notified. Follow-up comment: asking what else can he take for ed? Notification Completed: Katherin Martinez ORAL AND MAXILLOFACIAL SURGEON 11/20/2008 11:34 AM AL CLIMATE CHANGE RESEARCHER * Ramsey Valladares MD - 11/19/2008 3:20 PM GLOBAL CLIMATE CHANGE RESEARCHER [facility] Nursing Note for Office Visit November 19, 2008 Patient: Paul Peters Provider: Ramsey Valladares MD : 1950 C-O PCP: Age: 57 Years 11 Months Pain Assessment: The patient is not in pain. (Pain scale used: Yesicawski) Nursing Comments: The patient is here for a routine follow-up appointment. Vital Signs BP: 140/88 left arm seated Weight: 192.60 lbs / 87.36 kg Medications *Medications were reviewed today Brand Name Generic Name Dose Sig Code Simvastatin Simvastatin 40mg One orally at bedtime ( not taking ) Lisinopril Lisinopril 40mg One po daily ( not taking ) Seroquel* Quetiapine Fumarate* 100mg 800mg at hs Metformin Hcl Er Metformin Hcl 500mg Two po twice daily Glyburide Glyburide 5mg Two po twice daily Freestyle Test Strips Blood Sugar Diagnostic Use daily to check capillary gluco se. dx: 250.00 Allergies *Allergies were reviewed today Allergy Reaction Comment Haloperidol Psychotic Reaction Haldol Haloperidol Lactate Psychotic Reaction Haldol Documented by: Ely Gary PCT AL CLIMATE CHANGE RESEARCHER * Ramsey Valladares MD - 11/19/2008 3:19 PM GLOBAL CLIMATE CHANGE RESEARCHER [facility] [address] [place] [address] Paul Peters [address] [place] [address]- _ This is your current medication list as of November 19, 2008. Please take this l ist with you when you visit any Health Care Provider. Notify us of any changes at the number above and we will provide you with an updated list. Your Current Medications Brand Name Generic Name Dose Directions Glyburide Glyburide 5mg Two po twice daily Simvastatin Simvastatin 40mg One orally at bedtime ( not taking ) Aspirin Aspirin 325mg One orally daily Viagra Sildenafil Citrate 50mg One orally one hour before intercourse Lisinopril Lisinopril 40mg One po daily ( not taking ) Metformin Hcl Er Metformin Hcl 500mg Two po twice daily Seroquel* Quetiapine Fumarate* 100mg 800mg at hs Freestyle Test Strips Blood Sugar Diagnostic Use daily to check capillary gluco se. dx: 250.00 Medications that were new, had the directions changed, or were refilled today Brand Name Generic Name Dose Directions Refills Lisinopril Lisinopril 40mg One po daily ( not taking ) 11 Simvastatin Simvastatin 40mg One orally at bedtime ( not taking ) 11 Metformin Hcl Er Metformin Hcl 500mg Two po twice daily 11 Glyburide Glyburide 5mg Two po twice daily 11 Viagra Sildenafil Citrate 50mg One orally one hour before intercourse 3 Aspirin Aspirin 325mg One orally daily 0 Medications stopped (or refilled) today Brand Generic Name Dose Stop Date Aggrenox Aspirin/dipyridamole 25-200mg 11/19/2008 Chantix Varenicline Tartrate 1mg 11/19/2008 Aggrenox Aspirin/dipyridamole 25-200mg 11/19/2008 Metformin Hcl Er Metformin Hcl 500mg 11/19/2008 Lisinopril Lisinopril 40mg 11/19/2008 Simvastatin Simvastatin 40mg 11/19/2008 Glyburide Glyburide 5mg 11/19/2008 Allergies Allergen Reaction Comment Haloperidol Psychotic Reaction Haldol Haloperidol Lactate Psychotic Reaction Haldol Please notify me promptly if this information is not correct. Ramsey Valladares MD AL CLIMATE CHANGE RESEARCHER documented in this encounter Plan of Treatment Not on filedocumented as of this encounter Visit Diagnoses Not on filedocumented in this encounter
--- OUTSIDE RECORDS SUMMARY | 2019-05-25 03:31 | XMS REPORT | Encounter Summary ---
Author Author [facility] Organization [facility] Address Unknown Phone Unavailable Care Team Providers Care Fur Ironer Name Role Phone Ramsey Valladares MD PCP Encounter Details Care Team Description Date Type Department Link, Onbase 11/20/2008 [facility] HISTORICAL CONVERSION Social History Date Tobacco Use Types Packs/Day Years Used Never Assessed Sex Assigned at Date Recorded Not on file Industry Job Start Date Occupation Not on file Not on file Not on file Travel End Travel History Travel Start No recent travel history available. documented as of this encounter Progress Notes * Link, Onbase - 04/17/2013 12:20 PM CDT T documented in this encounter Plan of Treatment Not on filedocumented as of this encounter Visit Diagnoses Not on filedocumented in this encounter
--- OUTSIDE RECORDS SUMMARY | 2019-05-25 03:31 | XMS REPORT | Encounter Summary ---
Author Author [facility] Organization [facility] Address Unknown Phone Unavailable Care Team Providers Care Telecom Assistant Name Role Phone Ramsey Valladares MD PCP Encounter Details Care Team Description Date Type Department Historical, Zeny ProviderMD [address] [place] [address] 11/19/2008 [facility] HISTORICAL CONVERSION Encounter Social History Date Tobacco Use Types Packs/Day Years Used Never Assessed Sex Assigned at Date Recorded Not on file Industry Job Start Date Occupation Not on file Not on file Not on file Travel End Travel History Travel Start No recent travel history available. documented as of this encounter Last Filed Vital Signs Reading Time Taken Comments Vital Sign 140/88 11/19/2008 3:14 PM NATURAL RESOURCES MANAGER Blood Pressure - - Pulse - - Temperature - - Respiratory Rate - - Oxygen Saturation - - Inhaled Oxygen Concentration 87.4 kg (192 lb 9.6 oz) 11/19/2008 3:14 PM NATURAL RESOURCES MANAGER Weight - - Height - - Body Mass Index documented in this encounter Plan of Treatment Not on filedocumented as of this encounter Visit Diagnoses Not on filedocumented in this encounter
--- OUTSIDE RECORDS SUMMARY | 2019-05-25 03:31 | XMS REPORT | Encounter Summary ---
Author Author [facility] Organization [facility] Address Unknown Phone Unavailable Care Team Providers Care Music Grapher Name Role Phone Ramsey Valladares MD PCP Encounter Details Care Team Description Date Type Department Historical, Zeny ProviderMD [address] Address [place] [address] 02/18/2009 [facility] HISTORICAL CONVERSION Encounter Social History Date Tobacco Use Types Packs/Day Years Used Never Assessed Sex Assigned at Date Recorded Not on file Industry Job Start Date Occupation Not on file Not on file Not on file Travel End Travel History Travel Start No recent travel history available. documented as of this encounter Last Filed Vital Signs Reading Time Taken Comments Vital Sign 134/86 02/18/2009 1:46 PM CDT Blood Pressure - - Pulse - - Temperature - - Respiratory Rate - - Oxygen Saturation - - Inhaled Oxygen Concentration - - Weight - - Height - - Body Mass Index documented in this encounter Plan of Treatment Not on filedocumented as of this encounter Visit Diagnoses Not on filedocumented in this encounter
--- OUTSIDE RECORDS SUMMARY | 2019-05-25 03:31 | XMS REPORT | Encounter Summary ---
Author Author [facility] Organization [facility] Address Unknown Phone Unavailable Care Team Providers Care Supervisor Aircraft Cleaning Name Role Phone Ramsey Valladares MD PCP Encounter Details Care Team Description Date Type Department Link, Onbase 01/28/2009 [facility] HISTORICAL CONVERSION Social History Date Tobacco Use Types Packs/Day Years Used Never Assessed Sex Assigned at Date Recorded Not on file Industry Job Start Date Occupation Not on file Not on file Not on file Travel End Travel History Travel Start No recent travel history available. documented as of this encounter Progress Notes * Link, Onbase - 04/17/2013 12:14 PM CDT T * Link, Onbase - 04/07/2013 4:04 AM CDT T * Link, Onbase - 04/07/2013 4:04 AM CDT T documented in this encounter Plan of Treatment Not on filedocumented as of this encounter Visit Diagnoses Not on filedocumented in this encounter
--- OUTSIDE RECORDS SUMMARY | 2019-05-25 03:31 | XMS REPORT | Encounter Summary ---
Author Author [facility] Organization [facility] Address Unknown Phone Unavailable Care Team Providers Care Radiology Nurse Name Role Phone Ramsey Valladares MD PCP Encounter Details Care Team Description Date Type Department Link, Onbase 12/05/2008 [facility] HISTORICAL CONVERSION Social History Date Tobacco Use Types Packs/Day Years Used Never Assessed Sex Assigned at Date Recorded Not on file Industry Job Start Date Occupation Not on file Not on file Not on file Travel End Travel History Travel Start No recent travel history available. documented as of this encounter Progress Notes * Link, Onbase - 04/07/2013 4:11 AM CDT T * Link, Onbase - 04/07/2013 3:58 AM CDT T documented in this encounter Plan of Treatment Not on filedocumented as of this encounter Visit Diagnoses Not on filedocumented in this encounter
--- OUTSIDE RECORDS SUMMARY | 2019-05-25 03:31 | XMS REPORT | Encounter Summary ---
Author Author [facility] Organization [facility] Address Unknown Phone Unavailable Care Team Providers Care Bingo Usher Name Role Phone Ramsey Valladares MD PCP Encounter Details Care Team Description Date Type Department Ramsey Valladares MD [address] [place] [address] 01/29/2009 [facility] HISTORICAL CONVERSION Social History Date Tobacco Use Types Packs/Day Years Used Never Assessed Sex Assigned at Date Recorded Not on file Industry Job Start Date Occupation Not on file Not on file Not on file Travel End Travel History Travel Start No recent travel history available. documented as of this encounter Progress Notes * Ramsey Valladares MD - 02/19/2009 4:51 PM CDT [facility] Communicate Results February 19, 2009 Name: Paul Peters Provider: Ramsey Valladares MD : 1950 C-O PCP: Pharmacy: [place] [address] Work Phone: Pharmacy: Laboratory Results: Regarding: A1C (6.4 %) Results: okay Regarding: Basic Panel Results: okay Regarding: TSH (1.305 ulU/mL) Results: normal Regarding: FLP: TC (41 mg/dL), HDL (127 mg/dL), LDL (225 mg/dL), TG (213 mg/dL ) Results: high Recommend: take simvastatin daily Medications Brand Name Generic Name Dose Sig [...] was notified of the result by phone; patient notifie d of new medication order; the parent acknowledged the recommendation and voice d agreement Notification completed: Katherin Martinez LPN 02/19/2009 4:51 PM * Ramsey Valladares MD - 02/18/2009 2:02 PM CDT [facility] Lab Orders [place]: [facility] [address] [place] [address] [place] [address] Patient: Paul Peters Ordering Provider: Ramsey Valladares MD [address] Address: [address] [place] [id number]- Gender: M Date of : 1950 SSN: [id number] C-O Fasting: No Priority: Routine Date Ordered: 02/18/2009 Completed by: Ely Gary PCT Specimen Collection by Lab: Date (collected): Time (collected): By Code Description Tube Dx Dx Panels BASIC [X] Basic panel (8) C 250.00 272.4 LIPID [X] Lipid panel C 250.00 272.4 Chemistry A1C [X] A1C L 250.00 272.4 ALT [X] ALT (SGPT) C 250.00 272.4 TSH [X] TSH C 250.00 272.4 * Ramsye Valladares MD - 02/18/2009 1:51 PM CDT [facility] Nursing Note for Office Visit February 18, 2009 Patient: Paul Peters Provider: Ramsey Valladares MD : 1950 C-O PCP: Age: 58 Years 2 Months Pain Assessment: The patient is not in pain. (Pain scale used: Mankowski) Nursing Comments: The patient is here for a routine follow-up appointment. Vital Signs BP: 134/86 left arm seated Medications *Medications were reviewed today Brand Name [...] Gary PCT * Ramsey Valladares MD - 02/18/2009 1:50 PM CDT [facility] [address] [place] [address] Paul Peters [address] [place] [address]- _ This is your current medication list as of February 18, 2009. Please take this lis t with you when you visit any Health [...] Valladares MD * Ramsey Valladares MD - 01/29/2009 11:44 AM CDT [facility] Phone Note January 29, 2009 Patient: Paul Peters Provider: Ramsey Valladares MD : 1950 C-O PCP: (use this number) Pharmacy: [place] [address] Work Phone: Pharmacy: Time of call: 01/29/2009 11:43 AM Caller: Patient Reason for call: Question Pain Assessment: Pain assessment is not applicable. Message: asking for a new blind cane. 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 Call received by: Katherin Martinez LPN. Active Medications Brand Name Generic Name Dose Sig Code Aspirin Aspirin 325mg One orally daily Lisinopril [...] Name Dose Sig Code Quantity Refills Samples Cane (blind cane) dx:369.00 1 0 N First Attempt: Katherin Jimenez Michelle VALENTE 01/29/2009 4:33 PM (Left message on Servoy machine to call back.) documented in this encounter Plan of Treatment Not on filedocumented as of this encounter Visit Diagnoses Not on filedocumented in this encounter
--- OUTSIDE RECORDS SUMMARY | 2019-05-25 03:32 | XMS REPORT | Continuity of Care Document ---
Author Organization Unknown Address Unknown Allergies Active Description Code Type Severity Reaction Onset Reported/Identified Relationship to Patient Clinical Status Yes haloperidol [id number] Drug Allergy Mild N/A 04/03/2014 Medications There is no data. Problems Date Dx Coded Attending Type Code Diagnosis Diagnosed By 04/03/2014 FAITH JIANG DO Ot 873.0 04/03/2014 FAITH JIANG DO Ot E849.7 04/03/2014 FAITH JIANG DO Ot E884.4 05/28/2014 SHAMAR EDWARDS, KETURAH Agarwal Ot 250.00 05/28/2014 SHAMAR EDWARDS, KETURAH T Ot 443.9 05/28/2014 SHAMAR EDWARDS, KETURAH T Ot 781.94 11/26/2014 GELLENDER DOMIGUEL Ot 733.90 11/26/2014 MARK CAAL [place] BI CONSULTANT Ot 719.45 11/26/2014 MARK CAAL [employer] BI CONSULTANT Ot 729.5 11/26/2014 MARK CAAL [employer] BI CONSULTANT Ot 729.81 07/01/2015 GELLENDER DOMIGUEL Ot 519.8 07/01/2015 GELLENDER DO, MIGUEL Recinos Ot 786.2 07/03/2015 GELLENDER DO, MIGUEL Recinos Ot 519.8 07/03/2015 GELLENDER DO, MIGUEL Recinos Ot 786.2 09/25/2015 GELLENDER DO, MIGUEL Recinos Ot A41.9 09/25/2015 GELLENDER DO, MIGUEL Recinos Ot E11.9 09/25/2015 GELLENDER DO, MIGUEL Recinos Ot F02.81 09/25/2015 GELLENDER DO, MIGUEL Recinos Ot G30.9 09/25/2015 GELLENDER DO, MIGUEL Recinos Ot H54.0 09/25/2015 GELLENDER DO, MIGUEL Recinos Ot N39.0 09/26/2015 GELLENDER DOMIGUEL Ot 733.90 09/26/2015 GELLENMIGUEL JOHNSTON DO Ot 519.8 09/26/2015 MIGUEL HENSON DO Ot 786.2 12/27/2015 MIGUEL HENSON DO Ot S60.522A 12/27/2015 MIGUEL HENSON DO Ot X58.XXXA 12/27/2015 MIGUEL HENSON DO Ot Y99.8 Procedures There is no data. Results There is no data. Encounters ACCT No. Visit Date/Time Discharge Status Pt. Type Provider Facility Loc./Unit Complaint [id number] 12/07/2015 15:38:00 12/07/2015 23:59:59 CLS Outpatient MIGUEL HENOSN DO [facility] [id number] 09/21/2015 18:40:00 09/25/2015 10:33:00 DIS Inpatient MIGUEL HENSON DO [facility] 4TH [id number] 06/07/2015 10:42:00 06/07/2015 23:59:59 CLS Outpatient MIGUEL HENSON DO [facility] RAD [id number] 11/26/2014 11:30:00 11/26/2014 14:20:00 DIS Emergency MARK CAAL APRN [facility] ER [id number] 05/28/2014 11:40:00 05/28/2014 16:22:00 DIS Emergency KETURAH IBANEZ MD [facility] ER [id number] 04/03/2014 19:51:00 04/03/2014 21:55:00 DIS Emergency FAITH JIANG DO [facility] ER [id number] 10/18/2013 15:51:00 10/18/2013 23:59:59 CLS Outpatient MIGUEL HENSNO DO [facility] RAD [id number] 05/25/2019 03:14:00 ACT Emergency LOGAN GERMAN [facility] ER SWELLING IN ABDOMIN [id number] 06/08/2015 04:25:49 ACT Document Registration
[2019-05-25 03:36] LABS: BASOPHILS % (AUTO) 0 % (0-10); EOSINOPHILS % (AUTO) 0 % (0-10); HEMATOCRIT 49 % (40-54); HEMOGLOBIN 16.2 G/DL (13.3-17.7); LYMPHOCYTES # (AUTO) 1.9 X 10^3 (1.0-4.0); LYMPHOCYTES % (AUTO) 18 % (12-44); MEAN CORPUSCULAR HEMOGLOBIN 28 PG (25-34); MEAN CORPUSCULAR HGB CONC 33 G/DL (32-36); MEAN CORPUSCULAR VOLUME 85 FL (80-99); MONOCYTES # (AUTO) 0.7 X 10^3 (0.0-1.0); MONOCYTES % (AUTO) 7 % (0-12); NEUTROPHILS # (AUTO) 8.1 X 10^3 (1.8-7.8); NEUTROPHILS % (AUTO) 76 % (42-75); PLATELET COUNT 251 10^3/uL (130-400); RED CELL DISTRIBUTION WIDTH 14.3 % (10.0-14.5); WHITE BLOOD COUNT 10.7 10^3/uL (4.3-11.0)
[2019-05-25 03:36] LABS: BILIRUBIN,URINE NEGATIVE (NEGATIVE); CLARITY,URINE SLIGHTLY CLOUDY; COLOR,URINE YELLOW; GLUCOSE, URINE (UA) 2+ (NEGATIVE); KETONES,URINE NEGATIVE (NEGATIVE); LEUKOCYTE ESTERASE ,URINE 3+ (NEGATIVE); NITRITE,URINE NEGATIVE (NEGATIVE); PH,URINE 5 (5-9); PROTEIN,URINE 3+ (NEGATIVE); UROBILINOGEN,URINE NORMAL (NORMAL)
--- NOTE | 2019-05-25 03:38 | ED General ---
General Chief Complaint: - Urinary Stated Complaint: SWELLING IN ABDOMIN Source of Information: EMS, Correction Records, Old Records Exam Limitations: Other (PT IS NOT TALKING ) History of Present Illness Date Seen by Provider: May 25, 2019 Time Seen by Provider: 03:12 Initial Comments PT ARRIVES VIA EMS FROM [facility] HALFWAY MULTIPLE ISSUES PER HALFWAY NURSE: BLOOD SUGAR HAS BEEN ELEVATED THE LAST FEW DAYS--WAS 359 TONIGHT NURSE THINKS HE IS "DEHYDRATED" URINE IS DARK AND SMELLS BAD HAS BEEN CONSTIPATED--HAD SOFT BM ON 05/20, AND 05/24 HAD HARD STOOL. PT HAS DX OF CHRONIC CONSTIPATION AND IS PRESCRIBED [place] DAILY NURSE NOTED "ABDOMINAL MASS THAT WASN'T THERE WHEN SHE SAW HIM ON WEDNESDAY" "NO BOWEL SOUNDS" PER HALFWAY NURSE PT IS NOT TALKING, NOT FOLLOWING COMMANDS PT WITH BLANK STARE STRAIGHT AHEAD--IS UNKNOWN WHAT PT'S NORMAL BASELINE IS, BUT DOES TAKE MULTIPLE PSYCH MEDICATIONS. HALFWAY STAFF DID NOT RELATE THAT INFORMATION TO ANYONE. PT'S MOST RECENT HOSPITAL VISIT WAS IN 2014--PT HAD DEMENTIA WITH BEHAVIORAL DISTURBANCE, AND WAS NOT TALKING OR FOLLOWING COMMANDS AT THAT TIME. FIRST VISIT HERE WAS IN 2013, AND PT WAS IN HALFWAY AT THAT TIME, WAS NON-AMBULATORY, AND NON-VERBAL AT THAT TIME, WITH SEVERE DEMENTIA AND PRIOR CVA NOTED AT THAT TIME. PT IS DNR/DNI PCP: DR. HENSON Allergies and Home Medications Allergies Coded Allergies: haloperidol (Unverified Allergy, Mild, 04/03/14) Home Medications Acetaminophen 325 Mg Tablet, 325 MG PO DAILY, (Reported) Acetaminophen 325 Mg Tablet, 650 MG PO Q6H PRN for PAIN, (Reported) TAKES 2 (325 MG) TABLETS Amino Acids/Protein Hydrolys 30 Ml Liquid.pkt, 30 ML PO DAILY, (Reported) Ascorbate Calcium 500 Mg Tablet, 500 MG PO DAILY, (Reported) Aspirin 325 Mg Tablet, 325 MG PO DAILY, (Reported) Calcium Carbonate/Vitamin D3 1 Each Tablet, 1 TAB PO BID, (Reported) Cholecalciferol (Vitamin D3) 1,000 Unit Tablet, 1,000 UNIT PO DAILY, (Reported) Clonazepam 2 Mg Tab.rapdis, 2 MG PO HS, (Reported) Clonazepam 1 Mg Tab.rapdis, 1 MG PO DAILY, (Reported) Dextrose 37.5 Gm Gel..gram., 1 PACKET PO UD PRN for HYPOGLYCEMIA, (Reported) Divalproex Sodium 125 Mg Cap, 125 MG PO DAILY, (Reported) Divalproex Sodium 125 Mg Cap, 250 MG PO BID, (Reported) Donepezil HCl 5 Mg Tablet, 5 MG PO HS, (Reported) Escitalopram Oxalate 20 Mg Tablet, 20 MG PO HS, (Reported) Gabapentin 300 Mg Capsule, 300 MG PO TID, (Reported) Gabapentin 300 Mg Capsule, 600 MG PO HS, (Reported) TAKES 2 (300 MG) CAPSULES Glucagon,Human Recombinant 1 Mg/Kit Soln, 1 MG IJ UD PRN for HYPOGLYCEMIA, (Reported) Hydrocodone Bit/Acetaminophen 1 Each Tablet, 1 TAB PO TID PRN for PAIN, (Reported) Memantine HCl 10 Mg Tablet, 10 MG PO BID, (Reported) Mirtazapine 15 Mg Tab.rapdis, 7.5 MG PO HS, (Reported) Multivitamin 1 Each Tablet, 1 TAB PO DAILY, (Reported) Potassium Chloride 20 Meq Tab.er.prt, 20 MEQ PO DAILY, (Reported) Risperidone 2 Mg Tablet, 2 MG PO BID, (Reported) Sennosides/Docusate Sodium 1 Each Tablet, 1 TAB PO DAILY PRN for CONSTIPATION, (Reported) Trazodone HCl 100 Mg Tablet, 100 MG PO HS, (Reported) Zinc 50 Mg Tablet, 50 MG PO DAILY, (Reported) Patient Home Medication List Home Medication List Reviewed: Yes Review of Systems Review of Systems Constitutional: other (UNABLE TO OBTAIN ANY INFORMATION FROM PT) Gastrointestinal: see HPI Genitourinary: see HPI Past Tjnqyzq-Laryqt-Nilela Hx Patient Social History Smoking Status: Unknown if Ever Smoked 2nd Hand Smoke Exposure: No Recent Foreign Travel: No Contact w/Someone Who Travel: No Recent Hopitalizations: No Immunizations Up To Date Tetanus Booster (TDap): Unknown Date of Pneumonia Vaccine: Jun 30, 2013 Date of Influenza Vaccine: Sep 09, 2015 Seasonal Allergies Seasonal Allergies: No Past Medical History Surgeries: Yes (LEFT HIP SURGERY--NOTED ON XRAY) Respiratory: No Cardiac: Yes High Cholesterol Neurological: Yes (DEMENTIA WITH BEHAVIOR DISTURBANCE. PSEUDOBULBAR AFFECT, PER HALFWAY RECORDS. PT APPARENTLY IS NON-VERBAL AND DOES NOT FOLLOW COMMANDS, ACCORDING TO OLD RECORDS. PT HAS BEEN NON-AMBULATORY FOR YEARS. ) Dementia, Stroke Reproductive Disorders: No Genitourinary: Yes UTI-Chronic Gastrointestinal: Yes Chronic Constipation Musculoskeletal: No Endocrine: Yes Diabetes, Non-Insulin dep HEENT: No Loss of Vision: Denies Cancer: No Psychosocial: Yes ("behavior disturbance"; DEMENTIA WITH BEHAVIOR DISTURBANCE; PSEUDOBULBAR AFFECT) Anxiety, Depression Integumentary: No Blood Disorders: No Family Medical History Patient reports no known family medical history. Physical Exam Vital Signs Vital Signs - First Documented 05/25/19 03:12 Temp 98.2 Pulse 102 Resp 18 B/P (MAP) 138/93 (108) Pulse Ox 95 O2 Delivery Room Air Capillary Refill : Less Than 3 Seconds Height, Weight, BMI Height: 6'0.00" Weight: 158lbs. 10.0oz. 71.547504wa; 21.43 BMI Method:Estimated General Appearance: No Apparent Distress, Cachetic, Other (PT WITH BLANK STARE STRAIGHT AHEAD; DOES NOT ACKNOWLEDGE THAT ANYONE IS IN ROOM. PT IS NOT TALKING OR FOLLOWING COMMANDS. ONLY VERBAL RESPONSE IS "OW" ON IV STICK, RUBY CATHETER INSERTION AND ON PALPATION OF DISTENDED BLADDER) HEENT: PERRL/EOMI, Other (POOR DENTITION) Neck: Normal Inspection Respiratory: Normal Breath Sounds, No Accessory Muscle Use, No Respiratory Distress Cardiovascular: Regular Rate, Rhythm, No Edema, No JVD, No Murmur Gastrointestinal: Normal Bowel Sounds, No Pulsatile Mass, Soft, Tenderness (ON PALPATION OF DISTENDED BLADDER), Other (MARKEDLY DISTENDED BLADDER--TO UMBILICUS--VERY PROMINENT AGAINST A MARKEDLY SCAPHOID ABDOMEN--PT IS EMACIATED. ) Extremity: No Pedal Edema, Other (APPEARS TO HAVE SOME FLEXION CONTRACTURES OF LEFT ARM AND HAND) Neurologic/Psychiatric: Alert (AWAKE WITH BLANK STARE STRAIGHT AHEAD. ), Other (MOVES ALL EXTREMITIES, AND WITHDRAWS ARMS ON ATTEMPT TO START IV OR OBTAIN BP READING. ) Skin: Normal Color, Warm/Dry, Other (POOR TURGOR; MEDIAL ASPECT OF LEFT HEEL WITH DUSKINESS AND TEXTURE OF DEFLATED BULLA. NO SKIN BREAKDOWN NOTED ON SACRAL/COCCYX/BUTTOCKS AREA. ) Progress/Results/Core Measures Suspected Sepsis SIRS Temperature:98.2 Pulse: 102 Respiratory Rate: 18 Laboratory Tests 05/25/19 03:25: White Blood Count 10.7 Blood Pressure 138 /93 Mean: 108 Laboratory Tests 05/25/19 03:25: Creatinine 1.44H, Platelet Count 251, Total Bilirubin 1.3H Results/Orders Lab Results Laboratory Tests Test 05/25/19 03:20 05/25/19 03:25 05/25/19 03:40 05/25/19 04:30 Range/Units Urine Color YELLOW Urine Clarity SLIGHTLY CLOUDY Urine pH 5 5-9 Urine Specific [place] 1.015 L 1.016-1.022 Urine Protein 3+ H NEGATIVE Urine Glucose (UA) 2+ H NEGATIVE Urine Ketones NEGATIVE NEGATIVE Urine Nitrite NEGATIVE NEGATIVE Urine Bilirubin NEGATIVE NEGATIVE Urine Urobilinogen NORMAL NORMAL MG/DL Urine Leukocyte Esterase 3+ H NEGATIVE Urine RBC (Auto) 4+ H NEGATIVE Urine RBC RARE /HPF Urine WBC >100 H /HPF Urine Crystals NONE /LPF Urine Bacteria FEW H /HPF Urine Casts NONE /LPF Urine Mucus NEGATIVE /LPF Urine Culture Indicated YES White Blood Count 10.7 4.3-11.0 10^3/uL Red Blood Count 5.77 4.35-5.85 10^6/uL Hemoglobin 16.2 13.3-17.7 G/DL Hematocrit 49 40-54 % Mean Corpuscular Volume 85 80-99 FL Mean Corpuscular Hemoglobin 28 25-34 PG Mean Corpuscular Hemoglobin Concent 33 32-36 G/DL Red Cell Distribution Width 14.3 10.0-14.5 % Platelet Count 251 130-400 10^3/uL Mean Platelet Volume 11.0 H 7.4-10.4 FL Neutrophils (%) (Auto) 76 H 42-75 % Lymphocytes (%) (Auto) 18 12-44 % Monocytes (%) (Auto) 7 0-12 % Eosinophils (%) (Auto) 0 0-10 % Basophils (%) (Auto) 0 0-10 % Neutrophils # (Auto) 8.1 H 1.8-7.8 X 10^3 Lymphocytes # (Auto) 1.9 1.0-4.0 X 10^3 Monocytes # (Auto) 0.7 0.0-1.0 X 10^3 Eosinophils # (Auto) 0.0 0.0-0.3 10^3/uL Basophils # (Auto) 0.0 0.0-0.1 10^3/uL Sodium Level 146 H 135-145 MMOL/L Potassium Level 4.6 3.6-5.0 MMOL/L Chloride Level 110 H 98-107 MMOL/L Carbon Dioxide Level 21 21-32 MMOL/L Anion Gap 15 H 5-14 MMOL/L Blood Urea Nitrogen 50 H 7-18 MG/DL Creatinine 1.44 H 0.60-1.30 MG/DL Estimat Glomerular Filtration Rate 49 BUN/Creatinine Ratio 35 Glucose Level 445 *H 70-105 MG/DL Calcium Level 10.2 H 8.5-10.1 MG/DL Corrected Calcium 10.3 H 8.5-10.1 MG/DL Magnesium Level 2.8 H 1.8-2.4 MG/DL Total Bilirubin 1.3 H 0.1-1.0 MG/DL Aspartate Amino Transf (AST/SGOT) 25 5-34 U/L Alanine Aminotransferase (ALT/SGPT) 29 0-55 U/L Alkaline Phosphatase 109 40-136 U/L Total Protein 8.6 H 6.4-8.2 GM/DL Albumin 3.9 3.2-4.5 GM/DL Amylase Level 53 25-125 U/L Lipase 70 8-78 U/L Glucometer 356 H 262 H 70-110 MG/DL My Orders Orders - LOGANJULITOA K DO Accucheck Stat ONCE (05/25/19 03:25) Ed Iv/Invasive Line Start (05/25/19 03:25) Catheter(Urinary) Insert & Ass 03,15 (05/25/19 03:25) Monitor-Rhythm Ecg Trace Only (05/25/19 03:25) Amylase (05/25/19 03:25) Cbc With Automated Diff (05/25/19 03:25) Comprehensive Metabolic Panel (05/25/19 03:25) Lipase (05/25/19 03:25) Magnesium (05/25/19 03:25) Ua Culture If Indicated (05/25/19 03:25) Chest 1 View, Ap/Pa Only (05/25/19 03:25) Abdomen/Kub 1view (05/25/19 03:25) Ed Iv/Invasive Line Start (05/25/19 03:25) Ns Iv 1000 Ml (Sodium Chloride 0.9%) (05/25/19 03:25) Insulin (Regular) Human (Humulin R (Per (05/25/19 03:45) Urine Culture (05/25/19 03:20) Ceftriaxone For Iv Use (Rocephin For I (05/25/19 04:00) Accucheck Stat ONCE (05/25/19 04:19) Ed Iv/Invasive Line Start (05/25/19 04:20) Ns Iv 1000 Ml (Sodium Chloride 0.9%) (05/25/19 04:20) Medications Given in ED Current Medications Medications Dose Ordered Sig/Angel Route Start Time Stop Time Status Last Admin Dose Admin Ceftriaxone Sodium 1000 mg/ Sterile Water 10 ml @ 200 mls/hr ONCE ONCE IV 05/25/19 04:00 05/25/19 04:03 DC 05/25/19 04:07 200 MLS/HR Insulin Human Regular 20 unit ONCE ONCE IV 05/25/19 03:45 05/25/19 04:07 DC 05/25/19 03:47 20 UNIT Vital Signs/I&O 05/25/19 05/25/19 03:12 04:38 Temp 98.2 98.0 Pulse 102 98 Resp 18 20 B/P (MAP) 138/93 (108) 126/85 (99) Pulse Ox 95 99 O2 Delivery Room Air Room Air Capillary Refill : Less Than 3 Seconds Progress Note : Progress Note RUBY PLACED, WITH IMMEDIATE RETURN OF URINE--RUBY CLAMPED AT 500 ML--URINE IS CLOUDY BUT YELLOW. BLADDER IS NO LONGER DISTENDED. AN ADDITIONAL 700+ ML WAS LATER DRAINED--URINE IS NOW EXTREMELY THICK, AND GROSSLY PURULENT--APPEARS TO BE PURE PUS IN CATHETER TUBING AND RUBY BAG. ACCUCHECK 356--GIVEN IV FLUIDS AND INSULIN REPEAT ACCUCHECK--262 NO DETERIORATION IN PT'S CONDITION DURING ER STAY PT WOULD OCCASIONALLY YELL OUT / GET BRIEFLY AGITATED WITH PAIN STIMULUS, SUCH ACCUCHECKS, ETC. THEN WOULD QUICKLY CALM AND NO OTHER VERBAL OR PHYSICAL RESPONSE. Diagnostic Imaging Comments CXR--BIBASILAR ATELECTASIS/INFILTRATE--PENDING RADIOLOGIST REVIEW KUB--LARGE AMOUNT OF FORMED STOOL IN RECTUM, MODERATE AMOUNT OF GAS AND STOOL IN COLON--PENDING RADIOLOGIST REVIEW Reviewed: Reviewed by Me Departure Communication (PCP) [id number]--SPOKE WITH DR. HENSON, ACCEPTS PT FOR ADMIT. WOULD LIKE DR. XIONG CONSULTED IN AM. Impression Primary Impression: Urinary tract infection Additional Impressions: Urinary retention Dehydration Uncontrolled diabetes mellitus Constipation EARLY PRESSURE ULCER TO LEFT HEEL Acute renal failure Disposition: ADMITTED INPATIENT Condition: Stable Admissions Decision to Admit Reason: Admit from ER (General) Decision to Admit/Date: May 25, 2019 Time/Decision to Admit Time: 04:20 Departure-Patient Inst. Referrals: MIGUEL HENSON DO (PCP/Family) Primary Care Physician GERMAN FORD DO May 25, 2019 03:38
[2019-05-25 03:44] LABS: BACTERIA,URINE FEW /HPF; RBC,URINE RARE /HPF; WBC,URINE >100 /HPF
[2019-05-25] MEDS ORDERED: inSUlin (REGULAR) HUMAN 1 UNIT/0.01 ML (CHARGE PER UNIT) IV ONE (03:45)
[2019-05-25 03:59] LABS: ALBUMIN 3.9 GM/DL (3.2-4.5); BILIRUBIN,TOTAL 1.3 MG/DL (0.1-1.0); CALCIUM 10.2 MG/DL (8.5-10.1); CREATININE SERUM 1.44 MG/DL (0.60-1.30); MAGNESIUM 2.8 MG/DL (1.8-2.4); POTASSIUM 4.6 MMOL/L (3.6-5.0); TOTAL PROTEIN 8.6 GM/DL (6.4-8.2)
[2019-05-25] MEDS ORDERED: cefTRIAXone FOR IV USE 1,000 MG in WATER (STERILE) FOR INJECTION 10 ML IV ONE ×4 (04:00)
--- NOTE | 2019-05-25 04:40 | NUR ---
REDDENED AREA TO LEFT HEEL.
--- OUTSIDE RECORDS SUMMARY | 2019-05-25 04:45 | XMS REPORT | Encounter Summary ---
Author Author [facility] Organization [facility] Address Unknown Phone Unavailable Care Team Providers Care Police Patrol Lieutenant Name Role Phone Ramsey Valladares MD PCP [...]
--- OUTSIDE RECORDS SUMMARY | 2019-05-25 04:45 | XMS REPORT | Clinical Summary ---
Author Author [facility] Organization [facility] Address Unknown Phone Unavailable Care Team Providers Care Astrobiologist Name Role Phone Ramsey Valladares MD PP [...] filefrom Last 3 Months Advance Directives Patient Rating Officer Explanation Type Date Recorded ADVANCED DIRECTIVE LIVING [...]
--- OUTSIDE RECORDS SUMMARY | 2019-05-25 04:45 | XMS REPORT | Encounter Summary ---
Author Author [facility] Organization [facility] Address Unknown Phone Unavailable Care Team Providers Care Field Marketing Representative Name Role Phone Ramsey Valladares MD PCP Encounter Details Care Team Description Date Type Department Trish Santiago RN 08/23/2014 Abstract Arvin May`[facility] [address], [place] [id number] Social History Date Tobacco Use Types Packs/Day [...] Chest from topics * LVEF (08/06/2012) Pathologist [facility] LVEF Cath LVEF CT LVEF Echo LVEF MR LVEF Nuclear LVEF 60 * ECHOCARDIOGRAM (08/06/2012) Pathologist [facility] from topics ECHOCARDIOGRAM * US CAROTID DOPPLER (08/06/2012) Pathologist [facility] US Carotid from topics Doppler * COLONOSCOPY (06/29/2003) Pathologist [facility] Colonoscopy from topics documented in this encounter Visit Diagnoses Not on filedocumented in this encounter
--- OUTSIDE RECORDS SUMMARY | 2019-05-25 04:45 | XMS REPORT | Encounter Summary ---
Author Author [facility] Organization [facility] Address Unknown Phone Unavailable Care Team Providers Care Shop Supervisor Name Role Phone Ramsey Valladares MD PCP Encounter Details Care Team Description Date Type Department Historical, Zeny ProviderMD [address] Address [place] [address] 04/04/2013 [facility] HISTORICAL CONVERSION Encounter Social History Date [...] HEAD (04/04/2013) CT Head Comment: Updated from [facility] CLINIC LAB History Specimen Performing Organization Address City/State/Zipcode Phone Number EM CLINIC LAB [address] [place] [address] documented in this encounter Visit Diagnoses Not on filedocumented in this encounter
--- OUTSIDE RECORDS SUMMARY | 2019-05-25 04:45 | XMS REPORT | Encounter Summary ---
Author Author [facility] Organization [facility] Address Unknown Phone Unavailable Care Team Providers Care Steel Tier Name Role Phone Ramsey Valladares MD PCP Encounter Details Care Team Description Date Type Department Provider, MD Renetta [address] [facility] [place] [address] 04/21/2013 [facility] HISTORICAL CONVERSION Encounter Social History [...]
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
--- OUTSIDE RECORDS SUMMARY | 2019-05-25 04:47 | XMS REPORT | Encounter Summary ---
Author Author [facility] Organization [facility] Address Unknown Phone Unavailable Care Team Providers Care Chemical Plant Technical Director Name Role Phone Ramsey Valladares MD PCP Reason for Visit * Reason Comments Fall Encounter Details Care Team Description Date Type Department Manjit Artis MD [address] [place], [place] [id number] Bryon Flaherty, [address] [place], [place] [address] Sydnie Avery MD [address] [place] [address] Femur fracture (HCC) (Primary Dx); Inferior pubic ramus fracture (HCC); Fall from other slipping, tripping, or stumbling 01/24/2013 [facility] Spine - Encounter Center 01/27/[address] [id number] [place], [place] [id number] Social History Date Tobacco Use Types Packs/Day [...] Kahn PA-C - 01/30/2013 7:57 AM CDT [place] [phone] Orthopedic Surgery Discharge Summary Patient Name: Paul [...] in 2 weeks or after discharge from [facility] Discharged to: [facility]. Patient Teaching: Instructions given to: CARON [...] 01/27/2013 12:50 PM CDT Report called to [facility] and the nurse had no further questions or concerns * Katherin Gamboa - 01/27/2013 12:07 PM CDT Observations: Pt is being discharged to [facility] today. 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 I faxed his orders and meds to [facility]. I talked to his son and [facility] Carrington Harshad to update him as well and answered some questions he had. Plan: Transfer to [facility] today. Katherin Gamboa LMSW * Lon Tate MD - 01/27/2013 11:14 AM CDT [address] [phone] Hospitalist Daily Progress Note Patient Name: Paul [...] Chamberlain RN - 01/27/2013 7:04 AM CDT [address] [phone] Orthopedic Surgery Progress Note Patient Name: Paul [...] Assessment/Plan: Pathway; dc planning-ok to dc to retirement when ok with med ical; f/u 4 [...] orient to situation, only exclaiming profanity. Time: 0509-4813 Duration: 25 minutes Charges: 1 unit therapeutic [...] direct the L foot and could not pickling drum operator the R. Pt was assisted back to bed and positioned appropriately with pillow support. Assessment: Pt with minimal attention to activity. He does stimulate to pain re sponse, but lacks motivation to promote active assistance with transfers or pre- gait activity. Plan: Continue per Plan of Care. PORSCHE Blue * Lon Tate MD - 01/26/2013 10:56 AM CDT [place] [phone] Hospitalist Daily Progress Note Patient Name: Paul [...] Chamberlain RN - 01/26/2013 7:37 AM CDT [address] [phone] Orthopedic Surgery Progress Note Patient Name: Paul [...] Assessment/Plan: Pathway; dc planning-ok to dc to retirement when ok with med ical; f/u [address] Aevry; referral completed Principal Problem: *Hip fracture, intertrochanteric [...] Concepcion, PT - 01/25/2013 10:38 AM CDT [address] [phone] Physical Therapy Patient Name: Paul Peters : 1950 Billing Number: [id number] Physician: Sydnie Avery MD Today's Date: 01/25/2013 [...] hip ORIF. Chart states patient lives at Pending sale to [facility]. Baseline Activity Level: unsure, patient is a very unreliable historian Signs of Abuse: defer to nursing Weight bearing status: WBAT Mental Status: alert, oriented to person only, states he likes to go by his [facility] he name "Tosha" Vision: very poor vision Hearing: WFL Speech: [...] for sit>stand, often have to guide patient [id number] in order to follow cues correctly. Transfers: [...] Chamberlain RN - 01/25/2013 9:41 AM CDT [place] [phone] Orthopedic Surgery Progress Note Patient Name: Paul [...] Flaherty, DO - 01/25/2013 9:10 AM CDT [place] [phone] Hospitalist Daily Progress Note Patient Name: Paul [...] soft tissue density to suggest effusion. Impres ysoelin: No acute bony pathology. No significant degenerative [...] Catalan MD - 01/24/2013 8:09 PM CDT [address] [phone] Post Anesthesia Evaluation/Progress Note 01/24/2013 Patient Name: [...] Electronic Signature 01/24/2013 8:09 PM * Cece Saravia RN - 01/24/2013 11:17 AM CDT Meets inpatient [facility] Guidelines Ortho- isc- fx hip with planned [...] [facility] - Nurse Specimen Performing Organization Address [facility] Phone Number [facility] [address] [place] [phone] [facility] * Bedside Glucose - NURSE (01/27/2013 9:21 AM CDT) Bedside Glucose 107 (H) 74 - 106 mg/dL [facility] - Nurse Specimen Performing Organization Address [facility] Phone Number [facility] [address] [place] [address] [facility] * Bedside Glucose - NURSE (01/26/2013 9:16 PM CDT) Bedside Glucose 138 (H)Comment: Notified Nurse 74 - 106 mg/dL [facility] - Nurse Specimen Performing Organization Address [facility] Phone Number [facility] [address] [place] [address] [facility] * Bedside Glucose - NURSE (01/26/2013 5:14 PM CDT) Bedside Glucose 158 (H) 74 - 106 mg/dL [facility] - Nurse Specimen Performing Organization Address [facility] Phone Number [facility] [address] [place] [address] [facility] * Bedside Glucose - NURSE (01/26/2013 12:35 PM CDT) Bedside Glucose 138 (H) 74 - 106 mg/dL [facility] - Nurse Specimen Performing Organization Address [facility] Number [facility] [address] [place], [place] [address] [facility] * Urine Culture (01/26/2013 11:50 AM CDT) Urine Culture [place] count: No growth. [facility] Specimen Urine specimen (specimen) Performing Organization Address [facility] [address] [place] [phone] [facility] * Urinalysis, Reflex Culture If Needed (01/26/2013 11:50 AM CDT) Color, UA Yellow [facility] Appearance CLEAR [facility] Specific 1.027 1.003 - 1.030 [facility] [place], UA pH, UA 5.5 5.0 - 8.0 [...] Specimen Urine specimen (specimen) Performing Organization Address [facility] Phone Number [facility] [address] [place] [phone] [facility] * Basic metabolic panel (01/26/2013 11:22 [...] Specimen Blood specimen (specimen) Performing Organization Address [facility] Phone Number [facility] [address] [place] [address] [facility] * CBC and differential [...] Specimen Blood specimen (specimen) Performing Organization Address [facility] Phone Number [facility] [address] [place] [address] [facility] * Bedside Glucose - NURSE (01/26/2013 8:32 AM CDT) Bedside Glucose 121 (H) 74 - 106 mg/dL [facility] - Nurse Specimen Performing Organization Address [facility] Phone Number [facility] [address] [place] [address] [facility] * Bedside Glucose - NURSE (01/25/2013 9:04 PM CDT) Bedside Glucose 167 (H)Comment: Notified Nurse 74 - 106 mg/dL [facility] - Nurse Specimen Performing Organization Address City/[facility] Phone Number [facility] [address] [place] [address] [facility] * Bedside Glucose - NURSE (01/25/2013 5:21 PM CDT) Bedside Glucose 173 (H)Comment: Notified Nurse 74 - 106 mg/dL [facility] - Nurse Specimen Performing Organization Address [facility] Phone Number [facility] [address] [place] [phone] [facility] * Bedside Glucose - NURSE (01/25/2013 12:12 PM CDT) Bedside Glucose 189 (H)Comment: Notified Nurse 74 - 106 mg/dL [facility] - Nurse Specimen Performing Organization Address [facility] Phone Number [facility] [address] [place] [phone] [facility] * Bedside Glucose - NURSE (01/25/2013 7:48 AM CDT) Bedside Glucose 139 (H)Comment: Notified Nurse 74 - 106 mg/dL [facility] - Nurse Specimen Performing Organization Address [facility] Phone Number [facility] [address] [place] [phone] [facility] * Hemoglobin and hematocrit, blood (01/25/2013 6:25 AM CDT) Hemoglobin 11.9 (L) 13.5 - 17.5 g/dL [facility] Hematocrit 35.5 (L) 40.0 - 52.0 % [facility] Specimen Blood specimen (specimen) Performing Organization Address [facility] Phone Number [facility] [address] [place] [address] [facility] * Bedside Glucose - NURSE (01/24/2013 10:03 PM CDT) Bedside Glucose 157 (H) 74 - 106 mg/dL [facility] - Nurse Specimen Performing Organization Address [facility] Phone Number [facility] [address] [place] [address] [facility] * Bedside Glucose - NURSE (01/24/2013 7:08 PM CDT) Bedside Glucose 177 (H) 74 - 106 mg/dL [facility] - Nurse Comment: Notified Nurse Notified Dr. Menezes Performing Organization Address [facility] Phone Number [facility] [address] [place] [phone] [facility] * Hemoglobin and hematocrit, blood (01/24/2013 6:24 PM CDT) Hemoglobin 14.0 13.5 - 17.5 g/dL Hematocrit 41.6 40.0 - 52.0 % Specimen Blood specimen (specimen) * Bedside Glucose - NURSE (01/24/2013 6:18 PM CDT) Bedside Glucose 167 (H) 74 - 106 mg/dL [facility] - Nurse Specimen Performing Organization Address [facility] Phone Number [facility] [address] [place] [phone] [facility] * X-ray hip intraoperative left (01/24/2013 [...] [facility] [address] [place] [address] [facility] * ELECTROCARDIOGRAM REPORT (01/24/2013 9:31 AM CDT) Narrative Performed At Manjit Artis MD 01/24/20139:31 AM History Chief Complaint Patient presents with Fall HPI Comments: The patient is a poor historian, which is limiting the history obtained. Patient reports that he fell this morning at the retirement. He states he fell while walking due [...] oriented to time (RN discussed patient with [place] staff and he is reportedly at his [...] that he fell this morning at the retirement. He states he fell while walking due [...] [facility] Specific 1.022 1.003 - 1.030 [facility] [place], UA pH, UA 6.0 5.0 - 8.0 [...] Specimen Urine, Clean Catch Performing Organization Address [facility] Phone Number [facility] [address] [place] [address] [facility] * XR Chest 1 view (01/24/2013 9:09 AM CDT) Specimen Narrative Performed At Reason For Exam: fall [facility] Indication: Fall. Comparison: 08/06/2012 Findings: AP view chest. The cardiomediastinal silhouette is within normal limits. Perihilar bronchovascular congestion present. Calcified granulomas are present. No effusion or pneumothorax. Osseous structures are intact. Impression: 1. Stable exam, without acute process visualized Procedure Note Ed, Rad Results In - 01/24/2013 9:25 AM CDT Reason For Exam: fall Indication: Fall. Comparison: 08/06/2012 Findings: AP view chest. The cardiomediastinal silhouette is within normal limits. Perihilar bronchovascular congestion present. Calcified granulomas are present. No effusion or pneumothorax. Osseous structures are intact. Impression: 1. Stable exam, without acute process visualized Performing Organization Address [facility] Phone Number [facility] * X-ray Left Knee 2 views [...] degenerative change. .. .. Performing Organization Address [facility] Phone Number [facility] * X-ray hip [...] unremarkable. Performing Organization Address City/State/Zipcode Phone Number [facility] * CT Head without Contrast (01/24/2013 8:05 AM CDT) Specimen Narrative Performed At Reason For Exam: fall [facility] CT scan of the head without [...] of 01 August 2012. Performing Organization Address [facility] Phone Number [facility] * Type and screen (01/24/2013 7:43 AM CDT) Pathologist [facility] ABORh A POS [facility] Antibody Screen NEG [facility] Specimen Blood specimen (specimen) Performing Organization Address [facility] Phone Number [facility] [address] [place], [place] [address] [facility] * Estimated GFR (01/24/2013 7:43 AM CDT) [facility] GFR MDRD Af >59 >59 ml/min [facility] [...] body surface area. Specimen Performing Organization Address [facility] Phone Number [facility] [address] [place] [address] [facility] * PT & APTT (01/24/2013 7:43 AM CDT) [facility] Prothrombin 14.2 11.8 - 14.8 secs [facility] Time INR 1.1 [facility] Comment: Application of the INR is recommended only for patients receiving warfarin therapy. Recommended therapeutic range: 2.0-3.0 for less intense therapy 2.5-3.5 for more intense therapy aPTT 36.2 (H) 23.0 - 36.0 secs [facility] Specimen Performing Organization Address [facility] Phone Number [facility] [address] [place], [place] [address] [facility] * Comprehensive metabolic panel (01/24/2013 7:43 [...] (specimen) Performing Organization Address City/State/Zipcode Phone Number [facility] [address] [place] [phone] [facility] * CBC and differential (01/24/2013 7:43 [...] (specimen) Performing Organization Address City/State/Zipcode Phone Number [facility] [address] [place], [place] [phone] [facility] * EKG 12 lead (01/24/2013) Narrative [...]
--- OUTSIDE RECORDS SUMMARY | 2019-05-25 04:47 | XMS REPORT | Encounter Summary ---
Author Author [facility] Organization [facility] Address Unknown Phone Unavailable Care Team Providers Care Preschool Teacher Assistant Name Role Phone Ramsey Valladares MD PCP Encounter Details Care Team Description Date Type Department Link, Onbase 09/19/2012 [employer] [facility] HISTORICAL CONVERSION Social History Date Tobacco [...]
--- OUTSIDE RECORDS SUMMARY | 2019-05-25 04:47 | XMS REPORT | Encounter Summary ---
Author Author [facility] Organization [facility] Address Unknown Phone Unavailable Care Team Providers Care Electric Wirer Name Role Phone Ramsey Valladares MD PCP Encounter Details Care Team Description Date Type Department Historical, Zeny ProviderMD [address] [place] [address] 01/24/2013 [facility] HISTORICAL CONVERSION Encounter Social History Date [...] (01/24/2013) HM XR Chest Comment: Updated from [facility] History Specimen Performing Organization Address City/State/Zipcode Phone Number [facility] [address] [place] [address] documented in this encounter Visit Diagnoses Not on filedocumented in this encounter
--- OUTSIDE RECORDS SUMMARY | 2019-05-25 04:47 | XMS REPORT | Encounter Summary ---
Author Author [facility] Organization [facility] Address Unknown Phone Unavailable Care Team Providers Care Lotus Notes Developer Name Role Phone Ramsey Valladares MD PCP [...] CDT) Narrative Performed At Procedure Note Historical, [employer] Documents - 04/22/2013 6:13 AM CDT * HM IMAGING STUDY (04/22/2013 5:30 PM CDT) Narrative Performed At Procedure Note Historical, [employer] Documents - 04/22/2013 6:05 AM CDT * HM IMAGING STUDY (04/22/2013 5:30 PM CDT) Narrative Performed At Procedure Note Historical, [employer] Documents - 04/22/2013 6:05 AM CDT * HM EXTERNAL XRAY (04/22/2013 5:30 PM CDT) Narrative Performed At Procedure Note Historical, [employer] Documents - 04/22/2013 6:05 AM CDT * HM EXTERNAL XRAY (04/22/2013 5:30 PM CDT) Narrative Performed At Procedure Note Historical, [employer] Documents - 04/22/2013 6:05 AM CDT * HM EXTERNAL XRAY (04/22/2013 5:30 PM CDT) Narrative Performed At Procedure Note Historical, [employer] Documents - 04/22/2013 6:05 AM CDT documented in this encounter Visit Diagnoses Not on filedocumented in this encounter
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
--- OUTSIDE RECORDS SUMMARY | 2019-05-25 04:49 | XMS REPORT | Encounter Summary ---
Author Author [facility] Organization [facility] Address Unknown Phone Unavailable Care Team Providers Care Four Horse Hitch Driver Name Role Phone Ramsey Valladares MD PCP Reason for Visit * Reason Comments Hyperglycemia Encounter Details Care Team Description Date Type Department Kaylynn Lancaster MD DM (diabetes mellitus), type 2, uncontrolled (HCC); Hyperglycemia 05/23/2012 Emergency [facility] [address] [id number] [place] [address] Social History Date Tobacco Use Types Packs/Day [...] in this encounter Discharge Instructions * Instructions* David Berry PA-C - 05/23/2012 Rest Increase fluids You must follow up with . You need to start on your medications again. documented in this encounter Medications at Time of Discharge Start Date End Date Medication Sig Dispensed Refills 03/24/2012 08/10/2012 Blood Glucose Monitoring Check blood 1 each 0 Suppl (Exchangery BLOOD sugar four GLUCOSE MONITOR) MAYO times [...] Riri Sexton Organization Address City/State/Zipcode Phone Number [facility] [address] [place] [address] SOFTLAB * Urinalysis, Reflex Culture If Needed (05/23/2012 4:00 PM CDT) Color, UA Light-Yellow SOFT[facility] Appearance CLEAR SO[facility] Specific 1.026 1.003 - 1.030 SOFTLAB [place], UA pH, UA 5.0 5.0 - 8.0 [...] Specimen Urine, Clean Catch Performing Organization Address [facility] Phone Number [facility] [employer] [facility] [address] [place] [address] SOFTLAB * Estimated GFR (05/23/2012 3:45 [...] Organization Address [facility] Phone Number [facility] [employer] [facility] [address] [place] [address] SOFTLAB * Comprehensive Metabolic Panel [...] Specimen Blood specimen (specimen) Performing Organization Address City/[facility] Phone Number [facility] [address] [place] [address] SOFTLAB * CBC And Differential (05/23/2012 [...] Specimen Blood specimen (specimen) Performing Organization Address City/[facility] Phone Number [facility] [address] [place] [address] SOFTLAB * Bedside Glucose - NURSE (05/23/2012 3:44 PM CDT) Bedside Glucose 476 (H) 74 - 106 mg/dL SOFTLAB - Nurse Comment: Notified Nurse Notified Dr. Menezes Performing Organization Address City/State/Zipcode Phone Number [facility] [address] [place] [address] SOFTLAB documented in this encounter Visit Diagnoses [...]
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
--- OUTSIDE RECORDS SUMMARY | 2019-05-25 04:49 | XMS REPORT | Encounter Summary ---
Author Author [facility] Organization [facility] Address Unknown Phone Unavailable Care Team Providers Care Gas Attendant Name Role Phone Ramsey Valladares MD PCP Encounter Details Care Team Description Date Type Department Historical, Zeny ProviderMD [address] Address [place] [address] 04/07/2012 [employer] HISTORICAL CONVERSION Encounter Social History [...]
--- OUTSIDE RECORDS SUMMARY | 2019-05-25 04:49 | XMS REPORT | Encounter Summary ---
Author Author [facility] Organization [facility] Address Unknown Phone Unavailable Care Team Providers Care Night Order Selector Name Role Phone Ramsey Valladares MD PCP [...] CDT) Narrative Performed At Procedure Note Historical, [employer] Documents - 04/25/2013 3:36 AM CDT * ECHOCARDIOGRAM (04/26/2013 1:49 PM CDT) Narrative Performed At Procedure Note Historical, myhub Documents - 04/25/2013 3:36 AM CDT * HM EXTERNAL ULTRASOUND (04/26/2013 1:49 PM CDT) Narrative Performed At Procedure Note Historical, [employer] Documents - 04/25/2013 3:36 AM CDT * HM IMAGING STUDY (04/26/2013 1:49 PM CDT) Narrative Performed At Procedure Note Historical, [employer]hub Documents - 04/25/2013 3:36 AM CDT * HM EXTERNAL XRAY (04/26/2013 1:49 PM CDT) Narrative Performed At Procedure Note Historical, [employer] Documents - 04/25/2013 3:36 AM CDT * HM EXTERNAL XRAY (04/20/2013 8:22 PM CDT) Narrative Performed At A scan was deleted from the Results section by N Historical [[id number]] on 04/25/2013 at6:03 PM (File: [id number]) * ECHOCARDIOGRAM (04/20/2013 8:22 PM CDT) Narrative Performed At A scan was deleted from the Results section by N Historical [[id number]] on 04/25/2013 at6:03 PM (File: [id number]) * HM EXTERNAL ULTRASOUND (04/20/2013 8:22 PM CDT) Narrative Performed At A scan was deleted from the Results section by Puja Jackson [[id number]] on 04/25/2013 at6:03 PM (File: [id number]) * IMAGING STUDY (04/20/2013 8:22 PM CDT) Narrative Performed At A scan was deleted from the Results section by Puja Jackson [[id number]] on 04/25/2013 at6:03 PM (File: [id number]) * EXTERNAL XRAY (04/20/2013 8:22 PM CDT) Narrative Performed At A scan was deleted from the Results section by Puja Jackson [[id number]] on 04/25/2013 at6:03 PM (File: [id number]) * IMAGING STUDY (04/19/2013 9:28 AM CDT) Narrative Performed At Procedure Note Historical, [employer]hub Documents - 04/17/2013 1:59 AM CDT * EXTERNAL LAB TEST (04/18/2013 6:35 AM CDT) Narrative Performed At Procedure Note Birdbox, [employer]hub Documents - 04/10/2013 3:21 AM CDT documented in this encounter Visit Diagnoses Not on filedocumented in this encounter
--- OUTSIDE RECORDS SUMMARY | 2019-05-25 04:49 | XMS REPORT | Encounter Summary ---
Author Author [facility] Organization [facility] Address Unknown Phone Unavailable Care Team Providers Care Bible Reader Name Role Phone Ramsey Valladares MD PCP Encounter Details Care Team Description Date Type Department Historical, Zeny ProviderMD [address] Address [place] [address] 08/06/2012 NextGen HISTORICAL CONVERSION Encounter Social History [...] ECHO (08/06/2012) LVEF Echo 60Comment: Updated from [facility] Nextgen History Specimen Performing Organization Address City/State/Zipcode Phone Number [facility] [address] [facility] [place] [address] * ECHOCARDIOGRAM (08/06/2012) Comment: Updated from [facility] ECHOCARDIOGRAM History Specimen Performing Organization Address City/State/Zipcode Phone Number [facility] [address] [place] [address] * US CAROTID DOPPLER (08/06/2012) US Carotid Comment: Updated from [facility] Doppler History Specimen Performing Organization Address City/State/Zipcode Phone Number [facility] [address] [place] [address] * MRI HEAD (08/05/2012) MRI Head Comment: Updated from [facility] History Specimen Performing Organization Address City/State/Zipcode Phone Number [facility] [address] [place] [address] documented in this encounter Visit Diagnoses Not on filedocumented in this encounter
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
--- OUTSIDE RECORDS SUMMARY | 2019-05-25 04:50 | XMS REPORT | Encounter Summary ---
Author Author [facility] Organization [facility] Address Unknown Phone Unavailable Care Team Providers Care Filament Welder Name Role Phone Ramsey Valladares MD PCP Encounter Details Care Team Description Date Type Department Ramsey Valladares MD [address] [place] [address] 03/30/2012 Orders Only JORI [place], [place] Social History Date Tobacco Use [...] Organization Address City/State/Zipcode Phone Number [facility] [address] [place] [address] [employer] documented in this encounter Visit Diagnoses Not on filedocumented in this encounter
--- OUTSIDE RECORDS SUMMARY | 2019-05-25 04:50 | XMS REPORT | Encounter Summary ---
Author Author [facility] Organization [facility] Address Unknown Phone Unavailable Care Team Providers Care Fish Hatchery Manager Name Role Phone Ramsey Valladares MD PCP Encounter Details Care Team Description Date Type Department Ramsey Valladares MD [address] [place] [address] 03/30/2012 Orders Only JORI [place], [place] Social History Date Tobacco Use Types [...] Specimen Performing Organization Address City/State/Zipcode Phone Number [facility] [address] [place] [address] [employer] documented in this encounter Visit Diagnoses Not on filedocumented in this encounter
--- OUTSIDE RECORDS SUMMARY | 2019-05-25 04:50 | XMS REPORT | Encounter Summary ---
Author Author [facility] Organization [facility] Address Unknown Phone Unavailable Care Team Providers Care Milk Treater Name Role Phone Ramsey Valladares MD PCP Encounter Details Care Team Description Date Type Department Ramsey Valladares MD [address] [place] [address] 03/30/2012 Orders Only JORI [place], [place] Social History Date Tobacco Use Types [...] Specimen Performing Organization Address City/State/Zipcode Phone Number [facility] [address] [place] [address] [employer] documented in this encounter Visit Diagnoses Not on filedocumented in this encounter
--- OUTSIDE RECORDS SUMMARY | 2019-05-25 04:50 | XMS REPORT | Encounter Summary ---
Author Author [facility] Organization [facility] Address Unknown Phone Unavailable Care Team Providers Care Tumbling Barrel Painter Name Role Phone Ramsey Valladares MD PCP Encounter Details Care Team Description Date Type Department Historical, Zeny ProviderMD [address] Address [place] [address] 03/30/2012 [facility] HISTORICAL CONVERSION Encounter Social History [...] DIABETES EDUCATION (04/05/2012) DIABETES Comment: Updated from [facility] CLINIC LAB EDUCATION History Specimen Performing Organization Address City/State/Zipcode Phone Number [facility] [address] [facility] [place] [address] documented in this encounter Visit Diagnoses Not on filedocumented in this encounter
--- OUTSIDE RECORDS SUMMARY | 2019-05-25 04:50 | XMS REPORT | Encounter Summary ---
Author Author [facility] Address Unknown Phone Unavailable Care Team Providers Care Clamshell Operator Name Role Phone Ramsey Valladares MD PCP Encounter Details Care Team Description Date Type Department Ramsey Valladares MD [address] [place] [address] 03/30/2012 Orders Only JORI [place], [place] Social History Date Tobacco Use Types [...] Specimen Performing Organization Address City/State/Zipcode Phone Number [facility] [address] [place], [place] [address] [employer] documented in this encounter Visit Diagnoses Not on filedocumented in this encounter
--- OUTSIDE RECORDS SUMMARY | 2019-05-25 04:51 | XMS REPORT | Encounter Summary ---
Author Author [facility] Organization [facility] Address Unknown Phone Unavailable Care Team Providers Care Burning Plant Operator Name Role Phone Ramsey Valladares MD [...] CDT) Narrative Performed At Procedure Note Historical, [employer] Documents - 04/25/2013 3:36 AM CDT * HM EXTERNAL XRAY (04/20/2013 8:21 PM CDT) Narrative Performed At A scan was deleted from the Results section by N Historical [[id number]] on 04/25/2013 at6:03 PM (File: [id number]) documented in this encounter Visit Diagnoses Not on filedocumented in this encounter
--- OUTSIDE RECORDS SUMMARY | 2019-05-25 04:51 | XMS REPORT | Encounter Summary ---
Author Author [facility] Organization [facility] Address Unknown Phone Unavailable Care Team Providers Care Coordinator Of Evaluation Name Role Phone Ramsey Valladares MD PCP Reason for Visit * Reason Comments Suicidal Encounter Details Care Team Description Date Type Department Bhavesh Odonnell MD [address] [place] [address] Saturnino Pepper MD Mood disorder (HCC); Suicidal ideation; Substance abuse; COPD (chronic obstructive pulmonary disease) ([facility]); DM (diabetes mellitus) ([facility]); Vision impairment 03/19/2012 [facility] - Encounter [address] 03/24/2012 [id number] [place], [place] [address] Social History Date Tobacco Use Types Packs/Day [...] Ideation: no Homicidal Ideation no Discharge Diagnoses: [place] I : Bipolar d/o, manic Cocaine dependence with episodic use Vascular Dementia [place] II: Cluster B Traits [place] III: Past Medical History Diagnosis Date CVA (cerebral infarction) COPD (chronic obstructive pulmonary disease) Diabetes mellitus Hypertension Stroke Bipolar disorder Blindness, legal Substance abuse/dependence crack cocaine, THC Alcohol dependence, episodic History of medication noncompliance Tobacco abuse disorder (please review) [place] IV: GAF on Discharge: 40 Medications on discharge/transfer: Mark Saldaña Home Medication Instructions BRISEIDA:[id number] Printed on:03/24/12 160 Medication Information Blood Glucose Monitoring Suppl ([employer] BLOOD GLUCOSE MONITOR) MAYO Check blood sugar [...] tablet, Refills: 0 Blood Glucose Monitoring Suppl ([employer] BLOOD GLUCOSE MONITOR) MAYO Check blood sugar [...] to the PCP's office: Ramsey Valladares MD [phone] documented in this encounter Medications at Time [...] Monitoring Check blood 1 each 0 Suppl ([employer] BLOOD sugar four GLUCOSE MONITOR) MAYO times daily prior to meals and at bedtime. 03/24/2012 08/10/2012 glucose blood test strip Use as 100 each 12 instructed 03/24/2012 08/10/2012 glyBURIDE (DIABETA) 5 MG Take 1 tablet 30 tablet 1 tablet by mouth daily with breakfast. documented as of this encounter Progress Notes * Hosea Gonsalez MD - 03/24/2012 12:39 PM CDT [place] [phone] Hospitalist Daily Progress Note Patient Name: Mark [...] Race/Ethnic Background Marital Status City/Town/ of Residence [place] Christian Preference (from hospital records) no jewish preference noted in patient records Admission Diagnosis or Principal Problem Bipolar affective disorder Encounter Type Reason for Visit Spirituality Group - Grief Location of Encounter Day room (Pt room 614-A) Care Provided Pan Puller provided group structure and topic of discussion; facilit ated peer interaction; gave input on topic; offered and led optional closing gino up prayer; will remain available for individual spiritual care as needed. Other Pt arrived after group started. He stated his name as "[facility]" and that he is [facility]. Pt identified loss in his life as [...] erik never helped when experiencing a loss. Christian Affiliation "I am Gnosticism" - RAC * Any Castor OT - 03/23/2012 3:28 PM CDT OCCUPATIONAL THERAPY PROGRESS NOTE Patient name: Mark Saldaña Billing Number: [id number] Physician:Saturnino Pepper MD Date of visit: 03/23/2012 [...] buttons, tie shoes independently. Treatment time - 9068-6141 Charges - 1 adl ASSESSMENT: Patient requires [...] Gonsalez MD - 03/23/2012 11:14 AM CDT [address] [phone] Hospitalist Daily Progress Note Patient Name: Mark [...] management plan. Bob richardson reports residing at [facility], with his DM managed by Dr. Ramsey [...] a day. Lunch meal is provided by [employer] and dinner from the [employer]. We discussed the importance of administering medication as prescribed, co nsuming 3 meals a day, importance of daily blood glucose monitoring, blood gluco se targets, hypo/hyperglycemia guidelines, and when to contact a medical provide r. Patient denies attending a DM ed course in the past. Discussed Diabetes Learn [facility] education course which is agreed would be beneficial. Consult has bee n made. Provided my contact information should patient have additional questions . Hemoglobin A1C Date Value Range Status 03/22/2012 7.7* 4.0-6.0 (%) Final A1C Interpretive Guidelines: Target value=6.5% Appointment made at the [facility] for outpatient education, April 05 2012 at 2:30pm. Contact information was given to patient's RN. Notified Alex Nunez APRN of needed rx for Prodigy meter. * Any Castro, OT - 03/21/2012 3:06 PM CDT OCCUPATIONAL THERAPY INITIAL EVALUATION Patient Name: MARK SALDAÑA AGE: 61 y.o. DA TE OF : 1950 Billing Number: [id number] Attending Provider: Saturnino Pepper MD PRIMARY DIAGNOSIS: Suicidal ideations ONSET DATE: 03/19/2012 START OF CARE DATE: 03/21/2012 TIME/CHARGES: [id number] 1 non timed evaluation [id number] 1 activities of daily living Patient Active [...] l iving. Patient is unable to complete David Cognitive Level Screen (ACL) due to poor [...] he gets one meal a day from [employer] and [employer]. "T hat is enough." does not make [...] dressing tasks with stand by assist. termite control technician goals: (1-2 weeks) - Patient to participate [...] [facility] - Nurse Specimen Performing Organization Address [facility] Phone Number [facility] [address] [place] [address] [facility] * Bedside Glucose - NURSE (03/24/2012 6:36 AM CDT) Bedside Glucose 157 (H) 74 - 106 mg/dL [facility] - Nurse Specimen Performing Organization Address [facility] Phone Number [facility] [address] [place] [address] SOFT[facility] * Bedside Glucose - NURSE (03/23/2012 9:09 PM CDT) Bedside Glucose 103 74 - 106 mg/dL [facility] - Nurse Specimen Performing Organization Address [facility] Phone Number [facility] [address] [place], [place] [phone] SOFT[facility] * Bedside Glucose - NURSE (03/23/2012 4:38 PM CDT) Bedside Glucose 239 (H) 74 - 106 mg/dL [facility] - Nurse Specimen Performing Organization Address [facility] Phone Number [facility] [address] [place] [address] SOFT[facility] * Bedside Glucose - NURSE (03/23/2012 11:49 AM CDT) Bedside Glucose 231 (H) 74 - 106 mg/dL [facility] - Nurse Specimen Performing Organization Address [facility] Phone [facility] [address] [place] [address] SOFT[facility] * Bedside Glucose - NURSE (03/23/2012 6:27 AM CDT) Bedside Glucose 154 (H) 74 - 106 mg/dL [facility] - Nurse Specimen Performing Organization Address [facility] Phone Number [facility] [address] [place] [address] SOFT[facility] * Bedside Glucose - NURSE (03/22/2012 8:18 PM CDT) Bedside Glucose 154 (H) 74 - 106 mg/dL [facility] - Nurse Specimen Performing Organization Address [facility] Phone Number [facility] [address] [place] [address] SOFT[facility] * Bedside Glucose - NURSE (03/22/2012 4:36 PM CDT) Bedside Glucose 228 (H)Comment: Notified Nurse 74 - 106 mg/dL [facility] - Nurse Specimen Performing Organization Address [facility] Phone Number [facility] [address] [place] [address] SOFT[facility] * Bedside Glucose - NURSE (03/22/2012 11:42 AM CDT) Bedside Glucose 187 (H) 74 - 106 mg/dL [facility] - Nurse Specimen Performing Organization Address [facility] Phone Number [facility] [address] [place] [phone] SOFT[facility] * Bedside Glucose - NURSE (03/22/2012 6:52 AM CDT) Bedside Glucose 166 (H)Comment: Notified Nurse 74 - 106 mg/dL [facility] - Nurse Specimen Performing Organization Address [facility] Phone Number [facility] [address] [place] [address] [facility] * Hemoglobin A1C (03/22/2012 6:45 AM CDT) Hemoglobin A1C 7.7 (H) 4.0 - 6.0 % [facility] Comment: A1C Interpretive Guidelines: Target value=6.5% Specimen Blood specimen (specimen) Performing Organization Address [facility] Phone Number [facility] [address] [place] [address] SOFT[facility] * Bedside Glucose - NURSE (03/21/2012 8:17 PM CDT) Bedside Glucose 249 (H) 74 - 106 mg/dL [facility] - Nurse Specimen Performing Organization Address [facility] Phone Number [facility] [address] [place] [address] SO[facility] * Bedside Glucose - NURSE (03/21/2012 4:36 PM CDT) Bedside Glucose 149 (H) 74 - 106 mg/dL [facility] - Nurse Specimen Performing Organization Address [facility] Phone Number [facility] [address] [place] [address] SO[facility] * Bedside Glucose - NURSE (03/21/2012 11:33 AM CDT) Bedside Glucose 244 (H) 74 - 106 mg/dL [facility] - Nurse Specimen Performing Organization Address [facility] Phone Number [facility] [address] [place] [address] [facility] * Bedside Glucose - NURSE (03/21/2012 6:46 AM CDT) Bedside Glucose 215 (H) 74 - 106 mg/dL [facility] - Nurse Specimen Performing Organization Address [facility] Phone Number [facility] [address] [place] [address] [facility] * Bedside Glucose - NURSE (03/20/2012 8:03 PM CDT) Bedside Glucose 270 (H) 74 - 106 mg/dL [facility] - Nurse Specimen Performing Organization Address [facility] Phone Number [facility] [address] [place] [address] [facility] * Bedside Glucose - NURSE (03/20/2012 4:41 PM CDT) Bedside Glucose 233 (H) 74 - 106 mg/dL [facility] - Nurse Specimen Performing Organization Address [facility] Phone Number [facility] [address] [place] [address] [facility] * Bedside Glucose - NURSE (03/20/2012 11:44 AM CDT) Bedside Glucose 265 (H) 74 - 106 mg/dL [facility] - Nurse Specimen Performing Organization Address [facility] Phone Number [facility] [address] [place] [address] [facility] * EKG 12-LEAD (03/20/2012 10:06 AM CDT) Narrative Performed At * Bedside Glucose - NURSE (03/20/2012 6:22 AM CDT) Bedside Glucose 209 (H)Comment: Notified Nurse 74 - 106 mg/dL [facility] - Nurse Specimen Performing Organization Address [facility] Phone Number [facility] [address] [place] [address] [facility] * Bedside Glucose - NURSE (03/19/2012 8:36 PM CDT) Bedside Glucose 194 (H)Comment: Notified Nurse 74 - 106 mg/dL [facility] - Nurse Specimen Performing Organization Address [facility] Phone Number [facility] [address] [place] [address] [facility] * ELECTROCARDIOGRAM REPORT (03/19/2012 6:50 PM CDT) Narrative Performed At Lola Sharif APRN 03/19/20122:27 PM History Chief Complaint Patient presents with Suicidal HPI Comments: 61 yr old male to ER sent from [facility] for medical clearance to go to [facility] due to SI. Pt states that he [...] time ago." He does follow up at [facility], but otherwise, has not seen a PCP "for a long time." Patient is a 61 y.o. male presenting with mental health disorder. The history is provided by the patient. No charting clerk was used. Mental health disorder: Primary symptoms: [...] CXR Hx CAD- EKG/CXR Anticipate transfer to [facility] if bed available. Pt willing to go. [...] x-ray stable. Plan for transfer to SDU. Health Spa Manager notified. Patient Progress Patient progress: stable 2:20 PM Health Spa Manager called- [facility]U is very familiar with pt and they have agreed to take him when he is medically clear. When cleared, call Health Spa Manager to set up transfer. 1345: [facility] charge nurse came to ER to evaluate pt. He has been accepted pending CXR. Procedure Note Lola Sharif, COMMUNICATIONS PROGRAM MANAGER - 03/19/2012 12:43 PM CDT History Chief Complaint Patient presents with Suicidal HPI Comments: 61 yr old male to ER sent from [facility] for medical clearance to go to [facility] due to SI. Pt states that he [...] time ago." He does follow up at [facility], but otherwise, has not seen a PCP "for a long time." Patient is a 61 y.o. male presenting with mental health disorder. The history is provided by the patient. No charting clerk was used. Mental health disorder: Primary symptoms: [...] CXR Hx CAD- EKG/CXR Anticipate transfer to [facility] if bed available. Pt willing to go. [...] x-ray stable. Plan for transfer to SDU. Health Spa Manager notified. Patient Progress Patient progress: stable 2:20 PM Health Spa Manager called- SDU is very familiar with pt and they have agreed to take him when he is medically clear. When cleared, call Health Spa Manager to set up transfer. 1345: [facility] charge nurse came to ER to evaluate pt. He has been accepted pending CXR. Lola Sharif, HINA 03/19/12 1427 Bhavesh Odonnell MD 03/19/12 8830 * Consult to Hospitalist (03/19/2012 6:32 PM CDT) Narrative Performed At Sam Alberto MD 03/19/20126:32 PM [place] [phone] Hospitalist Consult Note Patient Name:Mark Saldaña :1950 Age:61 y.o. [facility] Referring Physician:Ramsey Valladares MD Consult [...] 1553 116/65 mmHg 98.1 F (36.7 C) 529738 % 6' (1.829 m) 187 lb 7 oz (85.021 kg) 03/19/12 1356 - - 91- 97 % - - 03/19/12 1352 145/93 mmHg - - - - - - 03/19/12 1154 121/95 mmHg 97.8 F (36.6 C) 0818035 % - - Recent Labs Basename 03/19/12 [...] Range Color, UA Yellow Appearance CLEAR Specific Olema, UA 1.0181.003 - 1.030 pH, UA 6.05.0 [...] (g/dL) RDW 13.610.0 - 14.8 (%) Platelets 989982 - 412 (10 3/cumm) MPV 8.16.8 - 10.0 (fL) Neutrophils Relative 48.440.0 - 75.0 (%) Lymphocytes Relative 39.022.0 - 49.0 (%) Monocytes Relative 7.12.0 - 9.0 (%) Eosinophils Relative 5.1 (*) 0.0 - 5.0 (%) Basophils Relative 0.40.0 - 2.5 (%) COMPREHENSIVE METABOLIC PANEL Collection Time 03/19/12 12:32 PM Component Value Range Albumin 4.53.4 - 4.8 (g/dL) Alkaline Phosphatase 67521 - 122 (U/L) ALT 1810 - 46 (U/L) AST 2216 - 37 (U/L) Total Bilirubin 1.00.3 - 1.2 (mg/dL) BUN, Bld 166 - 20 (mg/dL) Calcium 9.78.7 - 10.5 (mg/dL) Chloride 53155 - 111 (mmol/L) Creatinine 1.10.6 - 1.2 (mg/dL) Glucose 205 (*) 74 - 106 (mg/dL) Potassium 4.23.6 - 4.9 (mmol/L) Total Protein 7.86.4 - 8.3 (g/dL) Sodium 621157 - 145 (mmol/L) CO2 2720 - 36 [...] 12:32 PM Component Value Range Vitamin B-12 030196 - 911 (pg/mL) SEDIMENTATION RATE, MANUAL Collection [...] Alberto MD - 03/19/2012 6:15 PM CDT [place] [phone] Hospitalist Consult Note Patient Name: Mark Saldaña [...] Range Color, UA Yellow Appearance CLEAR Specific Olema, UA 1.018 1.003 - 1.030 pH, UA [...] No acute cardiopulmonary process. Performing Organization Address City/State/[facility] Phone Number [facility] * Perform Point Of Care Glucose (03/19/2012 12:40 PM CDT) Specimen * Sedimentation rate, manual (03/19/2012 12:32 PM CDT) Pathologist [facility] Sed Rate 25 (H) 0 - 15 MM/HR [facility] Specimen Blood specimen (specimen) Performing Organization Address [facility] Phone Number [facility] [address] [place] [address] [facility] * Folate RBC (03/19/2012 12:32 PM CDT) Pathologist [facility] Hematocrit 41.7 (L) 42.0 - 52.0 % [facility] Red Cell Folate 554 280 - 791 ng/mL [facility] Specimen Blood specimen (specimen) Performing Organization Address [facility] Phone Number [facility] [address] [place] [address] [facility] * Vitamin B12 (03/19/2012 12:32 PM CDT) Pathologist [facility] Vitamin B-12 522 211 - 911 pg/mL SO[facility] Comment: Vitamin B-12 Reference Range: Normal =211-911 pg/mL Deficient=32 -246 pg/mL Specimen Blood specimen (specimen) Performing Organization Address [facility] Number [facility] [address] [place] [address] SO[facility] * Bedside Glucose - NURSE (03/19/2012 12:32 PM CDT) Pathologist [facility] Bedside Glucose 208 (H)Comment: Notified Nurse 74 - 106 mg/dL [facility] - Nurse Specimen Performing Organization Address [facility] Phone Number [facility] [address] [place] [address] [facility] * Estimated GFR (03/19/2012 12:32 PM CDT) Pathologist [facility] GFR MDRD Af >59 >59 ml/min [...] body surface area. Specimen Performing Organization Address [facility] Phone Number [facility] [address] [place] [address] [facility] * Salicylate level (03/19/2012 12:32 PM CDT) Salicylate <1 (L) 3 - 20 mg/dL [facility] Level Comment: Salicylate Reference Ranges: 3-20 mg/dL=Therapeutic >30 mg/dL=Toxic >60 mg/dL=Lethal Specimen Blood specimen (specimen) Performing Organization Address [facility] Phone Number [facility] [address] [place] [address] [facility] * TSH (Reflex Free T4 if abnormal) (03/19/2012 12:32 PM CDT) TSH 1.336 0.400 - 4.000 uIU/mL [facility] Specimen Performing Organization Address [facility] Phone Number [facility] [address] [place] [address] [facility] * Alcohol, Serum (03/19/2012 12:32 PM [...] Specimen Blood specimen (specimen) Performing Organization Address City/[facility] Phone Number [facility] [address] [place] [address] [facility] * Acetaminophen level (03/19/2012 12:32 PM CDT) Pathologist [facility] Acetaminophen <2.4 (L) 10.0 - 30.0 ug/mL [facility] Level Comment: Post-ingestionPossible Probable Concentration*Hepatotoxici ty Hepatotoxicity 4 hours 150 ug/mL 190 ug/mL 6 hours 100 ug/mL 140 ug/mL 8 hours75 ug/mL 100 ug/mL 12 hours40 ug/mL50 ug/mL *For a single acute acetaminophen overdose. Please note new concentration units and reference range, effective Jul 27, 2011. Specimen Blood specimen (specimen) Performing Organization Address [facility] Phone Number [facility] [address] [place], [place] [phone] [facility] * Comprehensive metabolic panel (03/19/2012 12:32 PM CDT) Pathologist [facility] Albumin 4.5 [...] Specimen Blood specimen (specimen) Performing Organization Address [facility] Phone Number [facility] [address] [place], [place] [phone] [facility] * CBC and differential (03/19/2012 12:32 PM CDT) Pathologist [facility] WBC 5.8 4.8 - 10.8 10 3/cumm [...] Specimen Blood specimen (specimen) Performing Organization Address City/[facility] Phone Number [facility] [address] [place], [place] [phone] [facility] * Salicylates (03/19/2012 12:30 PM CDT) Pathologist [facility] Salicylate, NEGATIVE [facility] Urine Specimen Performing Organization Address [facility] Phone Number [facility] [address] [place] [phone] SO[facility] * Urinalysis, reflex culture if indicated (03/19/2012 12:30 PM CDT) Pathologist [facility] Color, UA Yellow [facility] Appearance CLEAR [facility] Specific 1.018 1.003 - 1.030 [facility] Olema, UA pH, UA 6.0 5.0 - 8.0 [...] - Urine, Clean Catch Performing Organization Address City/[facility]/Zipcode Phone Number [facility] [address] [place] [address] SO[facility] * Drug Screen (8) Medical (03/19/2012 [...] - Urine, Clean Catch Performing Organization Address [facility] Phone Number [facility] [address] [place] [address] [phone] SO[facility] * EXTERNAL RADIOLOGY PROCEDURE (03/19/2012 12:00 AM CDT) Narrative Performed At Finalized by system [employer] as part of the [employer] clean up. Procedure Note 01/04/2016 8:16 PM CRYSTAL ATTACHER Finalized by system [employer] as part of the [employer] clean up. documented in this encounter Visit [...] Oral, First dose on 03/19/12 at 2100, [facility] approved substitution for pravastatin (Pravachol). [...] at 1700, Do Not Crush. LOOK-ALIKE/SOUND-ALIKE MED ([place] sticker) , 200 mg Given 03/22/2012 5:26 PM CDT 200 mg Given 03/21/2012 5:35 PM CDT 03/20/2012 6:45 PM CDT 50 mg quetiapine (SEROQUEL XR) 24 hr tablet 50 Given by mg Other 50 mg BEDTIME, Oral, First dose on 03/20/12 at 1900, For 1 dose, Do Not Crush. LOOK-ALIKE/SOUND-ALIKE MED ([place] sticker) , 03/23/2012 5:30 PM CDT 25 mg quetiapine (SEROQUEL) tablet 25 mg Given 25 mg EVERY 6 HOURS PRN, Oral, Anxiety, Starting 03/19/12 at 1814, LOOK-ALIKE/SOUND-ALIKE MED ([place] sticker) , 25 mg Given 03/21/2012 4:58 [...]
--- OUTSIDE RECORDS SUMMARY | 2019-05-25 04:51 | XMS REPORT | Encounter Summary ---
Author Author [facility] Organization [facility] Address Unknown Phone Unavailable Care Team Providers Care Secondary Education Professor Name Role Phone Ramsey Valladares MD PCP Encounter Details Care Team Description Date Type Department Saturnino Pepper MD 12/17/2011 [facility] - Encounter [address] 12/24/2011 [id number] [place] [address] Social History Date Tobacco Use [...] Comments Vital Sign 99/61 12/24/2011 7:00 AM SCALE EXPERT Blood Pressure 65 12/24/2011 7:00 AM SCALE EXPERT Pulse 36.5 C (97.7 F) 12/23/2011 6:59 AM SCALE EXPERT Temperature 14 12/24/2011 7:00 AM SCALE EXPERT Respiratory Rate 93% 12/17/2011 6:03 PM SCALE EXPERT Oxygen Saturation - - Inhaled Oxygen Concentration 88.5 kg (195 lb) 12/17/2011 6:03 PM SCALE EXPERT Weight 180.3 cm (5' 11") 12/17/2011 6:03 PM SCALE EXPERT Height 27.2 12/17/2011 6:03 PM SCALE EXPERT Body Mass Index documented in this encounter [...] Type Priority Associated Diagnoses 12/21/2011 9:45 PM SCALE EXPERT EXTERNAL LAB TEST Lab 12/24/2011 12:00 AM SCALE EXPERT EXTERNAL LAB TEST Lab documented as of this encounter Procedures Comments Procedure Name Priority Date/Time Associated Diagnosis BEDSIDE GLUCOSE - NURSE Routine 12/24/2011 7:02 AM SCALE EXPERT BEDSIDE GLUCOSE - NURSE Routine 12/23/2011 4:51 PM SCALE EXPERT BEDSIDE GLUCOSE - NURSE Routine 12/23/2011 5:53 AM SCALE EXPERT BEDSIDE GLUCOSE - NURSE Routine 12/22/2011 4:59 PM SCALE EXPERT BEDSIDE GLUCOSE - NURSE Routine 12/22/2011 6:39 AM SCALE EXPERT BEDSIDE GLUCOSE - NURSE Routine 12/21/2011 4:34 PM SCALE EXPERT BEDSIDE GLUCOSE - NURSE Routine 12/21/2011 6:49 AM SCALE EXPERT BEDSIDE GLUCOSE - NURSE Routine 12/20/2011 4:31 PM SCALE EXPERT BEDSIDE GLUCOSE - NURSE Routine 12/20/2011 6:31 AM SCALE EXPERT VALPROIC ACID LEVEL, Timed 12/19/2011 TOTAL 7:46 AM SCALE EXPERT ESTIMATED GFR Routine 12/17/2011 7:03 PM SCALE EXPERT SEDIMENTATION RATE, Routine 12/17/2011 MANUAL 7:03 PM SCALE EXPERT RPR Routine 12/17/2011 7:03 PM SCALE EXPERT CBC AND DIFFERENTIAL Routine 12/17/2011 7:03 PM SCALE EXPERT TSH Routine 12/17/2011 7:03 PM SCALE EXPERT FOLATE RBC Routine 12/17/2011 7:03 PM SCALE EXPERT VITAMIN B12 Routine 12/17/2011 7:03 PM SCALE EXPERT COMPREHENSIVE METABOLIC Routine 12/17/2011 PANEL 7:03 PM SCALE EXPERT URINALYSIS, REFLEX Routine 12/17/2011 CULTURE IF NEEDED 3:20 PM SCALE EXPERT documented in this encounter Results * Bedside Glucose - NURSE (12/24/2011 7:02 AM SCALE EXPERT) Bedside Glucose 89Comment: Notify Nurse 70 - 105 mg/dL [facility] - Nurse Specimen Performing Organization Address City/[facility] Phone Number [facility] [address] [place] [phone] [facility] * Bedside Glucose - NURSE (12/23/2011 4:51 PM SCALE EXPERT) Bedside Glucose 112 (H)Comment: Notify Nurse 70 - 105 mg/dL [facility] - Nurse Specimen Performing Organization Address City/[facility] Phone Number [facility] [address] [place] [phone] [facility] * Bedside Glucose - NURSE (12/23/2011 5:53 AM SCALE EXPERT) Bedside Glucose 60 (L)Comment: Notify Nurse 70 - 105 mg/dL [facility] - Nurse Specimen Performing Organization Address [facility] Phone Number [facility] [address] [place] [phone] [facility] * Bedside Glucose - NURSE (12/22/2011 4:59 PM SCALE EXPERT) Bedside Glucose 141 (H)Comment: Notify Nurse 70 - 105 mg/dL [facility] - Nurse Specimen Performing Organization Address [facility] Phone Number [facility] [address] [place] [phone] [facility] * Bedside Glucose - NURSE (12/22/2011 6:39 AM SCALE EXPERT) Bedside Glucose 120 (H) 70 - 105 mg/dL [facility] - Nurse Specimen Performing Organization Address [facility] Phone Number [facility] [address] [place] [address] [facility] * Bedside Glucose - NURSE (12/21/2011 4:34 PM SCALE EXPERT) Bedside Glucose 77Comment: Notify Nurse 70 - 105 mg/dL [facility] - Nurse Specimen Performing Organization Address City/[facility] Phone Number [facility] [address] [place] [phone] [facility] * Bedside Glucose - NURSE (12/21/2011 6:49 AM SCALE EXPERT) Bedside Glucose 127 (H)Comment: Notify Nurse 70 - 105 mg/dL [facility] - Nurse Specimen Performing Organization Address City/[facility] Phone Number [facility] [address] [place] [phone] [facility] * Bedside Glucose - NURSE (12/20/2011 4:31 PM SCALE EXPERT) Bedside Glucose 152 (H)Comment: Notify Nurse 70 - 105 mg/dL [facility] - Nurse Specimen Performing Organization Address [facility] Phone Number [facility] [address] [place] [address] [phone] [facility] * Bedside Glucose - NURSE (12/20/2011 6:31 AM SCALE EXPERT) Bedside Glucose 129 (H)Comment: Notify Nurse 70 - 105 mg/dL [facility] - Nurse Specimen Performing Organization Address [facility] Phone Number [facility] [address] [place] [phone] [facility] * Valproic Acid Level, Total (12/19/2011 7:46 AM SCALE EXPERT) Valproic Acid 103 (H) 50 - 100 ug/mL [facility] Lvl Specimen Blood specimen (specimen) Performing Organization Address [facility] Phone Number [facility] [address] [place] [address] [phone] [facility] * Estimated GFR (12/17/2011 7:03 PM SCALE EXPERT) GFR MDRD Af >59 >59 ml/min [facility] [...] body surface area. Specimen Performing Organization Address City/[facility] Phone Number ON LICENSE OF [facility] [address] [place] [address] [facility] * Sedimentation rate, manual (12/17/2011 7:03 PM SCALE EXPERT) Pathologist [facility] Sed Rate 12 0 - 15 MM/HR [facility] Specimen Blood specimen (specimen) Performing Organization Address [facility] Phone Number ON LICENSE OF [facility] [address] [place] [address] [facility] * CBC and differential (12/17/2011 7:03 PM SCALE EXPERT) Pathologist [facility] WBC 7.5 4.8 - 10.8 10 3/cumm [...] Specimen Blood specimen (specimen) Performing Organization Address [facility] Phone Number ON LICENSE OF [facility] [address] [place] [address] [phone] [facility] * Folate RBC (12/17/2011 7:03 PM SCALE EXPERT) Pathologist [facility] Hematocrit 37.2 (L) 42.0 - 52.0 % [facility] Red Cell Folate 734 280 - 791 ng/mL [facility] Specimen Blood specimen (specimen) Performing Organization Address [facility] Phone Number ON LICENSE OF [facility] [address] [place] [address] [facility] * TSH (12/17/2011 7:03 PM SCALE EXPERT) [facility] TSH 1.499 0.400 - 4.000 uIU/mL [facility] Specimen Blood specimen (specimen) Performing Organization Address [facility] Phone Number ON LICENSE OF [facility] [address] [place] [phone] [facility] * Vitamin B12 (12/17/2011 7:03 PM SCALE EXPERT) [facility] Vitamin B-12 633 211 - 911 pg/mL [facility] Comment: Vitamin B-12 Reference Range: Normal =211-911 pg/mL Deficient=32 -246 pg/mL Specimen Blood specimen (specimen) Performing Organization Address [facility] Phone Number ON LICENSE OF [facility] [address] [place] [address] 6[address] [facility] * Comprehensive metabolic panel (12/17/2011 7:03 PM SCALE EXPERT) [facility] Albumin 4.1 3.4 - 4.8 g/dL [facility] [...] Specimen Blood specimen (specimen) Performing Organization Address [facility] Phone Number [facility] [address] [place] [address] [phone] [facility] * RPR (12/17/2011 7:03 PM SCALE EXPERT) RPR NON-REACTIVE Non-Reactive [facility] Specimen Blood specimen (specimen) Performing Organization Address [facility] Phone Number [facility] [address] [place] [address] [facility] * Urinalysis, reflex culture if indicated (12/17/2011 3:20 PM SCALE EXPERT) Color, UA Yellow [facility] Appearance CLEAR [facility] Specific 1.025 1.003 - 1.030 [facility], UA pH, UA 5.5 5.0 - 8.0 [...] - Urine, Clean Catch Performing Organization Address [facility] Phone Number [facility] [employer] [address] [place] [address] [facility] documented in this encounter Visit Diagnoses Diagnosis Vascular dementia (HCC) - Primary Vascular dementia, uncomplicated Bipolar affective disorder (HCC) Bipolar disorder, unspecified documented in this encounter Administered Medications Action Date Dose Rate Site Medication Order MAR Action 12/24/2011 8:33 AM SCALE EXPERT 75 mg clopidogrel (PLAVIX) tablet 75 mg Given 75 mg DAILY, Oral, First dose on Wed12/17/11 at 1745 75 mg Given 12/23/2011 9:06 AM SCALE EXPERT 75 mg Given 12/22/2011 9:45 AM SCALE EXPERT 12/17/2011 8:51 PM SCALE EXPERT 1,000 mg divalproex (DEPAKOTE ER) 24 hr tablet Given 1,000 mg 1,000 mg BEDTIME, Oral, First dose on Zuri 12/17/11 at 2100 12/23/2011 9:22 PM SCALE EXPERT 1,500 mg divalproex (DEPAKOTE ER) 24 hr tablet Given 1,500 mg 1,500 mg BEDTIME, Oral, First dose on Wed12/18/11 at 2100 1,500 mg Given 12/22/2011 9:19 PM SCALE EXPERT 1,500 mg Given 12/21/2011 9:01 PM SCALE EXPERT 12/23/2011 9:22 PM SCALE EXPERT 5 mg donepezil (ARICEPT) tablet 5 mg Given 5 mg BEDTIME, Oral, First dose on Wed12/17/11 at 2100 5 mg Given 12/22/2011 9:19 PM SCALE EXPERT 5 mg Given 12/21/2011 9:01 PM SCALE EXPERT 12/24/2011 8:33 AM SCALE EXPERT 1 puff fluticasone-salmeterol (ADVAIR) 250-50 Given MCG/DOSE inhaler 1 puff 1 puff EVERY 12 HOURS SCHEDULED (2 times per day), Inhalation, First dose on Wed12/17/11 at 2100 1 puff Given 12/23/2011 9:22 PM SCALE EXPERT 1 puff Given 12/23/2011 9:06 AM SCALE EXPERT 12/24/2011 8:33 AM SCALE EXPERT 2.5 mg glyBURIDE (DIABETA) tablet 2.5 mg Given 2.5 mg DAILY WITH BREAKFAST, Oral, First dose on Wed12/18/11 at 0800 2.5 mg Given 12/23/2011 9:05 AM SCALE EXPERT 2.5 mg Given 12/22/2011 9:45 AM SCALE EXPERT 12/24/2011 8:33 AM SCALE EXPERT 600 mg guaifenesin (MUCINEX) 12 hr tablet 600 Given mg 600 mg 2 TIMES DAILY, Oral, First dose on Wed12/17/11 at 2100 600 mg Given 12/23/2011 9:22 PM SCALE EXPERT 600 mg Given 12/23/2011 9:06 AM SCALE EXPERT 12/24/2011 8:33 AM SCALE EXPERT 10 mg lisinopril (PRINIVIL,ZESTRIL) tablet 10 Given mg 10 mg DAILY, Oral, First dose on Wed12/17/11 at 1745 10 mg Given 12/23/2011 9:06 AM SCALE EXPERT 10 mg Given 12/22/2011 9:45 AM SCALE EXPERT 12/24/2011 8:33 AM SCALE EXPERT 500 mg metformin (GLUCOPHAGE) tablet 500 mg Given 500 mg 2 TIMES DAILY WITH MEALS, Oral, First dose on Wed12/17/11 at 1745 500 mg Given 12/23/2011 4:17 PM SCALE EXPERT 500 mg Given 12/23/2011 9:05 AM SCALE EXPERT 12/24/2011 8:33 AM SCALE EXPERT 1 patch Left Arm nicotine (NICODERM CQ) 21 MG/24HR 1 Patch patch Applied 1 patch DAILY, Transdermal, First dose on Wed12/17/11 at 1745 1 patch Right Arm Patch Applied 12/23/2011 9:06 AM SCALE EXPERT 1 patch Left Arm Patch Applied 12/22/2011 9:45 AM SCALE EXPERT 12/23/2011 9:22 PM SCALE EXPERT 80 mg pravastatin (PRAVACHOL) tablet 80 mg Given 80 mg BEDTIME, Oral, First dose on Wed12/17/11 at 2100 80 mg Given 12/22/2011 9:19 PM SCALE EXPERT 80 mg Given 12/21/2011 9:01 PM SCALE EXPERT 12/17/2011 8:51 PM SCALE EXPERT 400 mg quetiapine (SEROQUEL XR) 24 hr tablet Given 400 mg 400 mg BEDTIME, Oral, First dose on Wed12/17/11 at 2100, [employer] (Sarah Ann sticker) , 12/23/2011 9:22 PM SCALE EXPERT 450 mg quetiapine (SEROQUEL XR) 24 hr tablet Given 450 mg 450 mg BEDTIME, Oral, First dose on Wed12/18/11 at 2000, [employer] (Sarah Ann sticker) , 450 mg Given 12/22/2011 9:24 PM SCALE EXPERT 450 mg Given 12/21/2011 9:01 PM SCALE EXPERT 12/24/2011 8:33 AM SCALE EXPERT 100 mg sertraline (ZOLOFT) tablet 100 mg Given 100 mg DAILY, Oral, First dose on Wed12/17/11 at 1745 100 mg Given 12/23/2011 9:06 AM SCALE EXPERT 100 mg Given 12/22/2011 9:45 AM SCALE EXPERT 12/24/2011 8:33 AM SCALE EXPERT 0.4 mg tamsulosin (FLOMAX) capsule 0.4 mg Given 0.4 mg DAILY, Oral, First dose on Wed12/17/11 at 1745 0.4 mg Given 12/23/2011 9:06 AM SCALE EXPERT 0.4 mg Given 12/22/2011 9:45 AM SCALE EXPERT 12/22/2011 10:41 PM SCALE EXPERT 50 mg trazodone (DESYREL) tablet 50 mg Given 50 mg BEDTIME PRN, Oral, Sleep, Starting Wed12/17/11 at 1728, May repeat x1 dose dose prior to 0100, 50 mg Given 12/21/2011 9:01 PM SCALE EXPERT 50 mg Given 12/21/2011 12:15 AM SCALE EXPERT 12/18/2011 9:12 AM SCALE EXPERT 250 mg valproic acid (DEPAKENE) capsule 250 mg Given 250 mg 2 TIMES DAILY, Oral, First dose on Zuri 12/17/11 at 2100 250 mg Given 12/17/2011 8:51 PM SCALE EXPERT 12/21/2011 11:44 AM SCALE EXPERT 0.5 mg varenicline (CHANTIX) tablet 0.5 mg Given 0.5 mg DAILY, Oral, First dose on 12/19/11 at 1945, For 3 days, Give with meals and with a full glass of water., 0.5 mg Given 12/20/2011 10:30 AM SCALE EXPERT 0.5 mg Given 12/19/2011 9:12 PM SCALE EXPERT 12/24/2011 8:33 AM SCALE EXPERT 0.5 mg varenicline (CHANTIX) tablet 0.5 mg Given 0.5 mg 2 TIMES DAILY, Oral, First dose on Wed12/22/11 at 0900, For 4 days, Give with meals and with a full glass of water., 0.5 mg Given 12/23/2011 9:22 PM SCALE EXPERT 0.5 mg Given 12/23/2011 9:06 AM SCALE EXPERT documented in this encounter
--- OUTSIDE RECORDS SUMMARY | 2019-05-25 04:52 | XMS REPORT | Encounter Summary ---
Author Author [facility] Organization [facility] Address Unknown Phone Unavailable Care Team Providers Care Quality Control Clerk Name Role Phone Ramsey Valladares MD PCP Encounter Details Care Team Description Date Type Department Provider, Default [place] 10/27/2011 Orders Only [place], [place] Social History Date Tobacco Use Types [...] Diagnosis ESTIMATED GFR Routine 10/27/2011 7:30 AM BOAT LABORER documented in this encounter Results * ESTIMATED GFR (10/27/2011 7:30 AM BOAT LABORER) GFR MDRD Af >59 >59 ml/min [facility] [...] Specimen Performing Organization Address City/State/Zipcode Phone Number [facility] [address] [place] [address] [facility] documented in this encounter Visit Diagnoses Not on filedocumented in this encounter
--- OUTSIDE RECORDS SUMMARY | 2019-05-25 04:52 | XMS REPORT | Encounter Summary ---
Author Author [facility] Organization [facility] Address Unknown Phone Unavailable Care Team Providers Care Card Cutter Helper Name Role Phone Ramsey Valladares MD PCP Encounter Details Care Team Description Date Type Department Provider, Default [place] 10/27/2011 Orders Only [place], [place] Social History Date Tobacco Use [...] Diagnosis HEMOGLOBIN A1C Routine 10/27/2011 7:30 AM ASSISTANT FOOTBALL COACH documented in this encounter Results * HEMOGLOBIN A1C (10/27/2011 7:30 AM ASSISTANT FOOTBALL COACH) Hemoglobin A1C 6.4 (H) 4.0 - 6.0 % [facility] Comment: A1C Interpretive Guidelines: Target value=6.5% Specimen Performing Organization Address City/State/Zipcode Phone Number [facility] [address] [place] [address] [facility] documented in this encounter Visit Diagnoses Not on filedocumented in this encounter
--- OUTSIDE RECORDS SUMMARY | 2019-05-25 04:52 | XMS REPORT | Encounter Summary ---
Author Author [facility] Organization [facility] Address Unknown Phone Unavailable Care Team Providers Care Enrollment Services Dean Name Role Phone Ramsey Valladares MD PCP Encounter Details Care Team Description Date Type Department Provider, Default [place] 10/27/2011 Orders Only [place], [place] Social History Date Tobacco Use Types [...] T4 IF Routine 10/27/2011 ABNORMAL) 7:30 AM CUTTING MACHINE OPERATOR HELPER documented in this encounter Results * TSH (REFLEX FREE T4 IF ABNORMAL) (10/27/2011 7:30 AM CUTTING MACHINE OPERATOR HELPER) TSH 2.730 0.400 - 4.000 uIU/mL [facility] Specimen Performing Organization Address City/State/Zipcode Phone Number [facility] [address] [place] [address] [facility] documented in this encounter Visit Diagnoses Not on filedocumented in this encounter
--- OUTSIDE RECORDS SUMMARY | 2019-05-25 04:52 | XMS REPORT | Encounter Summary ---
Author Author [facility] Organization [facility] Address Unknown Phone Unavailable Care Team Providers Care Director [place] Name Role Phone Ramsey Valladares MD PCP Encounter Details Care Team Description Date Type Department Provider, [facility] 10/27/2011 Orders Only [place], [place] Social History Date Tobacco Use Types [...] Diagnosis LIPID PANEL Routine 10/27/2011 7:30 AM COURSE DEVELOPER documented in this encounter Results * LIPID PANEL (10/27/2011 7:30 AM COURSE DEVELOPER) Cholesterol 157 0 - 200 mg/dL [facility] Triglycerides 119 0 - 149 mg/dL [facility] HDL 39 (L) 40 - 90 mg/dL [facility] LDL Cholesterol 94 0 - 99 mg/dL [facility] Specimen Performing Organization Address City/State/Zipcode Phone Number [facility] [address] [place], [place] [id number] [facility] documented in this encounter Visit Diagnoses Not on filedocumented in this encounter
--- OUTSIDE RECORDS SUMMARY | 2019-05-25 04:52 | XMS REPORT | Encounter Summary ---
Author Author [facility] Organization [facility] Address Unknown Phone Unavailable Care Team Providers Care Electron Gun Inspector Name Role Phone Ramsey Valladares MD PCP Encounter Details Care Team Description Date Type Department Provider, Default [place] 10/27/2011 Orders Only [place], [place] Social History Date Tobacco Use Types [...] CBC AND DIFFERENTIAL Routine 10/27/2011 7:30 AM BRICK BURNER HEAD documented in this encounter Results * CBC AND DIFFERENTIAL (10/27/2011 7:30 AM BRICK BURNER HEAD) WBC 7.0 4.8 - 10.8 10 3/cumm [...] Specimen Performing Organization Address City/State/Zipcode Phone Number [facility] [address] [place] [address] [facility] documented in this encounter Visit Diagnoses Not on filedocumented in this encounter
--- OUTSIDE RECORDS SUMMARY | 2019-05-25 04:52 | XMS REPORT | Encounter Summary ---
Author Author [facility] Organization [facility] Address Unknown Phone Unavailable Care Team Providers Care Artist'S Manager Name Role Phone Ramsey Valladares MD PCP Encounter Details Care Team Description Date Type Department Provider, Default [place] 10/27/2011 Orders Only [place], [place] Social History Date Tobacco Use Types [...] Associated Diagnosis IRON Routine 10/27/2011 7:30 AM THRESHER BROOMCORN documented in this encounter Results * IRON (10/27/2011 7:30 AM THRESHER BROOMCORN) Iron 73 (L) 81 - 208 ug/dL [facility] Specimen Performing Organization Address City/State/Zipcode Phone Number [facility] [address] [place] [address] [facility] documented in this encounter Visit Diagnoses Not on filedocumented in this encounter
--- OUTSIDE RECORDS SUMMARY | 2019-05-25 04:52 | XMS REPORT | Encounter Summary ---
Author Author [facility] Organization [facility] Address Unknown Phone Unavailable Care Team Providers Care Shoe Packer Name Role Phone Ramsey Valladares MD PCP Encounter Details Care Team Description Date Type Department Provider, Default [place] 10/27/2011 Orders Only [place], [place] Social History Date Tobacco Use Types [...] Diagnosis IRON SATURATION Routine 10/27/2011 7:30 AM CERTIFIED ENERGY MANAGER documented in this encounter Results * IRON SATURATION (10/27/2011 7:30 AM CERTIFIED ENERGY MANAGER) Iron Saturation 24 20 - 55 % [facility] Specimen Performing Organization Address City/State/Zipcode Phone Number [facility] [address] [place] [address] [facility] documented in this encounter Visit Diagnoses Not on filedocumented in this encounter
--- OUTSIDE RECORDS SUMMARY | 2019-05-25 04:52 | XMS REPORT | Encounter Summary ---
Author Author [facility] Organization [facility] Address Unknown Phone Unavailable Care Team Providers Care Mill Operator Head Name Role Phone Ramsey Valladares MD PCP Encounter Details Care Team Description Date Type Department Ramsey Valladares MD [address] [place] [address] 07/07/2011 Next[employer] Doc HISTORICAL CONVERSION [...] Valladares MD - 07/07/2011 2:03 PM CDT [facility] [address] [place] [address] [place] [address] July 07, 2011 Paul Peters [address] [place] [address]- _ Dear Mr. Paul Peters, Thank you, Ramsey Valladares MD * Ramsey Valladares MD - 07/07/2011 1:43 PM CDT [facility] Nursing Note for Office Visit July 07, [...]
--- OUTSIDE RECORDS SUMMARY | 2019-05-25 04:52 | XMS REPORT | Encounter Summary ---
Author Author [facility] Organization [facility] Address Unknown Phone Unavailable Care Team Providers Care Sink Cutter Name Role Phone Ramsey Valladares MD PCP Encounter Details Care Team Description Date Type Department Provider, Default [place] 10/27/2011 Orders Only [place], [place] Social History Date Tobacco Use Types [...] COMPREHENSIVE METABOLIC Routine 10/27/2011 PANEL 7:30 AM SKIDDER LEVER OPERATOR documented in this encounter Results * COMPREHENSIVE METABOLIC PANEL (10/27/2011 7:30 AM SKIDDER LEVER OPERATOR) Albumin 3.9 3.4 - 4.8 g/dL [facility] [...] Organization Address City/State/Zipcode Phone Number [facility] [address] [place], [place] [address] [facility] documented in this encounter Visit Diagnoses Not on filedocumented in this encounter
--- OUTSIDE RECORDS SUMMARY | 2019-05-25 04:52 | XMS REPORT | Encounter Summary ---
Author Author [facility] Organization [facility] Address Unknown Phone Unavailable Care Team Providers Care Chassis Mechanic Name Role Phone Ramsey Valladares MD PCP Encounter Details Care Team Description Date Type Department Provider, Default [place] 10/27/2011 Orders Only [place], [place] Social History Date Tobacco Use Types [...] IRON BINDING CAPACITY Routine 10/27/2011 7:30 AM OFFENSIVE COORDINATOR documented in this encounter Results * IRON BINDING CAPACITY (10/27/2011 7:30 AM OFFENSIVE COORDINATOR) Iron Binding 308 250 - 450 ug/dL [facility] Capacity Specimen Performing Organization Address City/State/Zipcode Phone Number [facility] [address] [place] [address] [facility] documented in this encounter Visit Diagnoses Not on filedocumented in this encounter
--- OUTSIDE RECORDS SUMMARY | 2019-05-25 04:52 | XMS REPORT | Encounter Summary ---
Author Author [facility] Address Unknown Phone Unavailable Care Team Providers Care Toll Gate Keeper Name Role Phone Ramsey Valladares MD PCP Encounter Details Care Team Description Date Type Department Ramsey Valladares MD [address] [place] [address] [phone] 09/17/2011 [facility] HISTORICAL CONVERSION Social History [...] Ramsey Valladares MD - 09/17/2011 9:52 AM [facility] Phone Note September 17, 2011 Patient: Paul Peters Provider: Ramsey Valladares MD : 1950 C-O PCP: Ramsey Valladares MD Pharmacy: [id number] Work Phone: Pharmacy: Last PE: 07/03/2010 Time of call: 09/17/2011 9:49 AM Last Lipids: 04/02/2011 Last TSH: 07/03/2010 Caller: Patient Reason for call: Question Pain Assessment: Pain assessment is not applicable. Message: living in [facility] and asking for dr to discharge him [...] valladares was aware he was in a custodial . Recorded by: Katherin Martinez LPN Written order, Ramsey Valladares MD Action Taken: The patient acknowledged the recommendation and voiced agreement Nurse's follow-up comments: Agree, his care has been trasferred. I wish him all the best. Notification Completed: Katherin Martinez LPN 09/17/2011 1:50 PM TECHNICIAN documented in this encounter Plan of Treatment Not on filedocumented as of this encounter Visit Diagnoses Not on filedocumented in this encounter
--- OUTSIDE RECORDS SUMMARY | 2019-05-25 04:52 | XMS REPORT | Encounter Summary ---
Author Author [facility] Organization [facility] Address Unknown Phone Unavailable Care Team Providers Care Floral Department Specialist Name Role Phone Ramsey Valladares MD PCP Encounter Details Care Team Description Date Type Department Provider, Default [place] 10/27/2011 Orders Only [place], [place] Social History Date Tobacco Use Types [...] Diagnosis BILIRUBIN, DIRECT Routine 10/27/2011 7:30 AM [facility] documented in this encounter Results * BILIRUBIN, DIRECT (10/27/2011 7:30 AM [facility]) Bilirubin, 0.1 0.0 - 0.1 mg/dL [facility] Direct Specimen Performing Organization Address City/State/Zipcode Phone Number [facility] [address] [place] [address] [facility] documented in this encounter Visit Diagnoses Not on filedocumented in this encounter
--- OUTSIDE RECORDS SUMMARY | 2019-05-25 04:53 | XMS REPORT | Encounter Summary ---
Author Author [facility] Organization [facility] Address Unknown Phone Unavailable Care Team Providers Care Contract Loader Name Role Phone Ramsey Valladares MD PCP Encounter Details Care Team Description Date Type Department Saturnino Pepper MD 05/06/2011 [facility] - Encounter [address] 05/12/2011 [id number] [address] Social History Date Tobacco Use [...] ( charge 1 non-timed OT evaluation) David Avery, OTR/L * Vineet Ferrera - 05/10/2011 9:42 AM CDT 05/10/11 0900 Clinical Encounter Type Visited With Patient Routine Visit Intro (Length of stay assessment) Pt was alone in room and dozing. He woke to clinical exercise physiologist's voice. Pt did not want a visit at this time and declined see supervisor services. * Shannan Dobbins - 05/09/2011 10:04 [...] Specimen Performing Organization Address City/State/Zipcode Phone Number [facility] [address] [place] [phone] [facility] * BEDSIDE GLUCOSE - NURSE (05/12/2011 6:24 AM CDT) Bedside Glucose 104Comment: Notify Nurse 70 - 105 mg/dL [facility] - Nurse Specimen Performing Organization Address City/[facility] Phone Number [facility] [address] [place] [id number] [facility] * BEDSIDE GLUCOSE - NURSE (05/11/2011 8:59 PM CDT) Bedside Glucose 155 (H)Comment: Notify Nurse 70 - 105 mg/dL [facility] - Nurse Specimen Performing Organization Address [facility] Phone Number [facility] [address] [place] [phone] [facility] * BEDSIDE GLUCOSE - NURSE (05/11/2011 5:31 PM CDT) Bedside Glucose 111 (H)Comment: Notify Nurse 70 - 105 mg/dL [facility] - Nurse Specimen Performing Organization Address City/[facility] Phone Number [facility] [address] [place] [phone] [facility] * BEDSIDE GLUCOSE - NURSE (05/11/2011 11:51 AM CDT) Bedside Glucose 113 (H) 70 - 105 mg/dL [facility] - Nurse Specimen Performing Organization Address [facility] [place] Phone Number [facility] [address] [place] [phone] [facility] * BEDSIDE GLUCOSE - NURSE (05/11/2011 6:37 AM CDT) Bedside Glucose 111 (H)Comment: Notify Nurse 70 - 105 mg/dL [facility] - Nurse Specimen Performing Organization Address [facility] Cent[facility] Phone Number [facility] [address] [place] [phone] [facility] * BEDSIDE GLUCOSE - NURSE (05/10/2011 11:22 PM CDT) Bedside Glucose 140 (H)Comment: Notify Nurse 70 - 105 mg/dL [facility] - Nurse Specimen Performing Organization Address City/State/[facility] Centercode Phone Number [facility] [address] [place] [phone] [facility] * BEDSIDE GLUCOSE - NURSE (05/10/2011 8:18 PM CDT) Bedside Glucose 69 (L)Comment: Notify Nurse 70 - 105 mg/dL [facility] - Nurse Specimen Performing Organization Address [facility] Phone Number [facility] [address] [place] [phone] [facility] * BEDSIDE GLUCOSE - NURSE (05/10/2011 4:36 PM CDT) Bedside Glucose 199 (H)Comment: Notify Nurse 70 - 105 mg/dL [facility] - Nurse Specimen Performing Organization Address City/[facility] Phone Number [facility] [address] [place] [address] [facility] * BEDSIDE GLUCOSE - NURSE (05/10/2011 11:31 AM CDT) Bedside Glucose 72Comment: Notify Nurse 70 - 105 mg/dL [facility] - Nurse Specimen Performing Organization Address [facility] Phone Number [facility] [address] [place] [address] [facility] * BEDSIDE GLUCOSE - NURSE (05/10/2011 6:45 AM CDT) Bedside Glucose 87Comment: Notify Nurse 70 - 105 mg/dL [facility] - Nurse Specimen Performing Organization Address City/[facility] Phone Number [facility] [address] [place] [phone] [facility] * BEDSIDE GLUCOSE - NURSE (05/09/2011 9:07 PM CDT) Bedside Glucose 97Comment: Notify Nurse 70 - 105 mg/dL [facility] - Nurse Specimen Performing Organization Address [facility] Cent[facility] Phone Number [facility] [address] [place] [address] [facility] * BEDSIDE GLUCOSE - NURSE (05/09/2011 4:57 PM CDT) Bedside Glucose 106 (H)Comment: Notify Nurse 70 - 105 mg/dL [facility] - Nurse Specimen Performing Organization Address City/[facility]/Zipcode Phone Number [facility] [address] [place] [address] [facility] * BEDSIDE GLUCOSE - NURSE (05/09/2011 12:09 PM CDT) Bedside Glucose 65 (L)Comment: Notify Nurse 70 - 105 mg/dL [facility] - Nurse Specimen Performing Organization Address City/State/[facility] Cent[facility] Phone Number [facility] [address] [place] [address] [facility] * BEDSIDE GLUCOSE - NURSE (05/09/2011 5:40 AM CDT) Bedside Glucose 100Comment: Notify Nurse 70 - 105 mg/dL [facility] - Nurse Specimen Performing Organization Address City/[facility] Phone Number [facility] [address] [place] [phone] [facility] * BEDSIDE GLUCOSE - NURSE (05/08/2011 8:31 PM CDT) Bedside Glucose 138 (H)Comment: Notify Nurse 70 - 105 mg/dL [facility] - Nurse Specimen Performing Organization Address City/[facility] Centerc[facility] Phone Number [facility] [address] [place] [phone] [facility] * BEDSIDE GLUCOSE - NURSE (05/08/2011 4:42 PM CDT) Bedside Glucose 208 (H)Comment: Notify Nurse 70 - 105 mg/dL [facility] - Nurse Specimen Performing Organization Address City/[facility] Centerc[facility] Phone Number [facility] [address] [place] [phone] [facility] * BEDSIDE GLUCOSE - NURSE (05/08/2011 11:59 AM CDT) Bedside Glucose 141 (H)Comment: Notify Nurse 70 - 105 mg/dL [facility] - Nurse Specimen Performing Organization Address City/[facility]/Zipcode Phone Number [facility] [address] [place] [phone] [facility] * BEDSIDE GLUCOSE - NURSE (05/07/2011 8:22 PM CDT) Bedside Glucose 223 (H) 70 - 105 mg/dL [facility] - Nurse Specimen Performing Organization Address [facility] Phone Number [email or web address] [address] [place] [phone] [facility] * BEDSIDE GLUCOSE - NURSE (05/07/2011 4:50 PM CDT) Bedside Glucose 115 (H)Comment: Notify Nurse 70 - 105 mg/dL [facility] - Nurse Specimen Performing Organization Address [facility] Phone Number [email or web address] [address] [place] [address] [facility] * BEDSIDE GLUCOSE - NURSE (05/07/2011 11:47 AM CDT) Bedside Glucose 241 (H)Comment: Notify Nurse 70 - 105 mg/dL [facility] - Nurse Specimen Performing Organization Address [facility] Centercode Phone Number [email or web address] [address] [place] [address] [facility] * BEDSIDE GLUCOSE - NURSE (05/07/2011 6:38 AM CDT) Bedside Glucose 116 (H)Comment: Notify Nurse 70 - 105 mg/dL [facility] - Nurse Specimen Performing Organization Address [facility] Phone Number [email or web address] [address] [place] [phone] [facility] * BEDSIDE GLUCOSE - NURSE (05/06/2011 8:51 PM CDT) Bedside Glucose 158 (H)Comment: Notify Nurse 70 - 105 mg/dL [facility] - Nurse Specimen Performing Organization Address [facility] Centercode Phone Number [facility] [address] [place] [address] [facility] * BEDSIDE GLUCOSE - NURSE (05/06/2011 4:51 PM CDT) Bedside Glucose 169 (H)Comment: Notify Nurse 70 - 105 mg/dL [facility] - Nurse Specimen Performing Organization Address [facility] Phone Number [facility] [address] [place] [address] [facility] * Vitamin B12 (05/06/2011 2:04 PM CDT) Vitamin B-12 851 211 - 911 pg/mL [facility] Comment: Vitamin B-12 Reference Range: Normal =211-911 pg/mL Deficient=32 -246 pg/mL Specimen Blood specimen (specimen) Performing Organization Address [facility] Phone Number [facility] [address] [place] [address] [facility] * RPR (05/06/2011 2:04 PM CDT) RPR NON-REACTIVE Non-Reactive [facility] Specimen Blood specimen (specimen) Performing Organization Address [facility] [place] Phone Number [facility] [address] [place] [address] [facility] documented in this encounter Visit Diagnoses [...]
--- OUTSIDE RECORDS SUMMARY | 2019-05-25 04:54 | XMS REPORT | Encounter Summary ---
Author Author [facility] Organization [facility] Address Unknown Phone Unavailable Care Team Providers Care Independent Video Producer Name Role Phone Ramsey Valladares MD PCP Reason for Visit * Reason Comments Altered Mental Status Encounter Details Care Team Description Date Type Department Ap Raya [address] [place], [place] [address] Nick Carson MD [address] [place], [place] [id number] Brandon Becker, [address] [place], [place] [id number] Altered mental status 04/23/2011 [facility] - Encounter [address] 05/06/2011 [id number] [place], [place] [id number] Social History Date Tobacco Use Types Packs/Day [...] 10/18/2006 Document Re-Released: 11/09/2010 ExitCare Patient Information [address] [place], [place] [address]. documented in this encounter Medications at Time [...] was getting tired. Objective:Charge=1 gait. Time of kfdyvtfze=6153. 10 minutes. Patient was standing up in [...] Plan: will alert RPT of patient's status. Gregory Narveaz CPTA * Hermilo Richmond Jorje, OT - 05/05/2011 4:15 PM CDT OCCUPATIONAL THERAPY PROGRESS NOTE SUBJECTIVE: nursing okay'ed an occupational therapy treatment. Sitter was at th e patient's bedside. The patient agreed to occupational therapy treatment. The patient stated he had "no pain." Patient's goal: not stated. Patient persever ated on the word "pheromones" during the occupational therapy treatment. OBJECTIVE: Treatment time - 2682-2630 Charges - activities of daily living x [...] today. Dc plan pending. * Stacy Sharp CCC-CUTTING MACHINE OFFBEARER - 05/05/2011 3:07 PM CDT S: Pt [...] the pt first counted to 10 in south korean but when prompted by the clinician the pt coun kentrell to 5 in cay[place] islander. Pt answered yes/no questions with 60% accuracy. Pt would answer yes/no questions but pt is unreliable in answering the questions correctly. A: Pt continues to present with severe receptive and expressive language deficit s; however, pt increased his accuracy for completing automatic speech tasks (cou nt to five). However, pt was often disorganized ( counted to 10 in south korean) an d perseverative ( would continue saying the months of the year over and over aga in, even when redirected). Pt's accuracy for answering yes/no questions was commensurate with previous perf ormance. Pt decreased his accuracy for following one-step directions (from 20% t o 0%). P: Continue with POC when pt is transferred to SDU. Samantha SANDERSON CUTTING MACHINE OFFBEARER-S Stacy Sharp M.A. CCC-CUTTING MACHINE OFFBEARER * Stacy Sharp CCC-CUTTING MACHINE OFFBEARER - 05/05/2011 11:56 AM CDT S: Pt [...] pt is transferred to SDU. Samantha SANDERSON CUTTING MACHINE OFFBEARER-S Stacy Sharp M.A. CCC-CUTTING MACHINE OFFBEARER * Whitney Sanchez CPTA - 05/05/2011 9:12 [...] cga x 2. Gait trained with min WET AND DRY SUGAR BIN OPERATOR x 250' and student assistin g with [...] per POC. PORSCHE Franklin * Stacy Sharp, [facility]-CUTTING MACHINE OFFBEARER - 05/04/2011 12:43 PM CDT S: Pt [...] P: Continue tx efforts. Stacy Sharp M.A. CCC-CUTTING MACHINE OFFBEARER * Whitney Sanchez CPTA - 05/04/2011 9:46 [...] to stimuli Memory Decreased short term memory;Decreased long term care phlebotomist memory;Decreased recall o f recent events;Decreased recall [...] simple grooming tasks. BAYRON Collins, OTR/L, CLT-MANDO [phone] Charge=one non-timed occupational therapy evaluation One activities [...] available per protocol. Camila Sheets, RD, LD [facility] Clinical Dietitian #[id number] * Stacy Sharp, [facility]-CUTTING MACHINE OFFBEARER - 05/01/2011 4:37 PM CDT Bedside Swallow [...] ccuracy with minimal cues. Samantha Garnica BS CUTTING MACHINE OFFBEARER-S Stacy Sharp M.A. CCC-CUTTING MACHINE OFFBEARER * Priscila Torres OT - 05/01/2011 2:12 [...] OF ONE Posture: ERECT Gait: 150' WITH WET AND DRY SUGAR BIN OPERATOR OF TWO RN STATES HIS CANE WAS [...] PM CDT ALEENA spoke with Romero Brooke, rn case management at [facility] ([phone]). He says that prio r to this hospitalization this patient was functioning fairly well. He suggested that the patient be screened for "the residence" at [facility]. He plans to visit the patient sometime soon. ALEENA spoke with the patient's nurse and learned that the patient is no longer in restraints but is wearing mitts so that he can't pull at his I.V. Lines. He is reported to still be confused. Due to his current conditi on he wouldn't be appropriate for "the residence." ALEENA spoke with Dot at the [facility] Crisis services about this patient. She said that the patient would be able to ambulate and be medically stable to go to [facility]. Also, she said that OSH is currently [...] about p lans for placement. Latoya Amaral [facility] Ext. [phone] 15:59 04/28/11 ALEENA completed report to APS. Latoya Amaral [facility] Ext. [phone] * Latoya Amaral - 04/27/2011 4:57 PM CDT ALEENA spoke with Phi Ge of [facility]. He says that this patient is a client of [facility] and has participated in their dual dx program. The patient's rn case management is Sudha Brooke. The patient is reported to have problems with bipolar disorder and alcohol dependence. ALEENA asked that Phi Jasso know that the patient is in [facility] and he can contact this SW about plans for this patient. Latoya Amaral [facility] Ext. [phone] * Shanann Ibrahim, RN - 04/26/2011 6:12 AM CDT [...] REPORT: S.TACH, RSR, PAC'S 100-120. * Teresa Mulelr RN - 04/24/2011 3:24 PM CDT Discussed [...] correct name and some i nformation. This hand sign writer asked patient if we could contact the name (Melony Templeton @ [phone]) and he agreed. This hand sign writer spoke with Ms. Templeton and she said she l ast saw patient about 10 days ago when she took him to alevism with her.Ms. Priyanka farley said she is patient's "social ict security specialist and payee." She said she received a [...] has no money at this time. This hand sign writer left a voice message at Dr. Rasmey Valladares' office to see if patient came [...] by system utility as part of the [facility] clean up. Procedure Note 01/04/2016 7:47 PM DIRECTOR OF UNDERGRADUATE ADMISSIONS Finalized by system utility as part of the [facility] clean up. * ECHOCARDIOGRAM (05/06/2011 4:15 PM CDT) Narrative Performed At * EKG 12-LEAD (05/06/2011 4:15 PM CDT) Narrative Performed At * BEDSIDE GLUCOSE - NURSE (05/06/2011 8:32 AM CDT) Bedside Glucose 149 (H)Comment: Notify Nurse 70 - 105 mg/dL [facility] - Nurse Specimen Performing Organization Address [facility] Phone Number [facility] [address] [place] [phone] [facility] * BEDSIDE GLUCOSE - NURSE (05/05/2011 9:15 PM CDT) Bedside Glucose 185 (H)Comment: Notify Nurse 70 - 105 mg/dL [facility] - Nurse Specimen Performing Organization Address [facility] Phone Number [facility] [address] [place] [address] [facility] * Urinalysis, Reflex Culture If Needed (05/05/2011 5:11 PM CDT) Color, UA Yellow [facility] Appearance CLEAR [facility] Specific 1.018 1.003 - 1.030 [facility] Central, UA pH, UA 5.5 5.0 - 8.0 [...] Specimen Urine, Clean Catch Performing Organization Address [facility] Phone Number [facility] [address] [place] [address] [phone] [facility] * BEDSIDE GLUCOSE - NURSE (05/05/2011 4:40 PM CDT) Bedside Glucose 97Comment: Notify Nurse 70 - 105 mg/dL [facility] - Nurse Specimen Performing Organization Address [facility] Phone Number [facility] [address] [place] [phone] [facility] * BEDSIDE GLUCOSE - NURSE (05/05/2011 11:33 AM CDT) Bedside Glucose 203 (H)Comment: Notify Nurse 70 - 105 mg/dL [facility] - Nurse Specimen Performing Organization Address [facility] Phone Number [facility] [address] [place] [address] 12591 [facility] * BEDSIDE GLUCOSE - NURSE (05/05/2011 8:30 AM CDT) Bedside Glucose 145 (H)Comment: Notify Nurse 70 - 105 mg/dL [facility] - Nurse Specimen Performing Organization Address [facility] Phone Number [facility] [address] [place] [address]446 [facility] * BEDSIDE GLUCOSE - NURSE (05/04/2011 9:44 PM CDT) Bedside Glucose 95Comment: Notify Nurse 70 - 105 mg/dL [facility] - Nurse Specimen Performing Organization Address [facility] Phone [facility] [address] [place] [phone] [facility] * BEDSIDE GLUCOSE - NURSE (05/04/2011 5:06 PM CDT) Bedside Glucose 106 (H)Comment: Notify Nurse 70 - 105 mg/dL [facility] - Nurse Specimen Performing Organization Address [facility] Phone Number [facility] [address] [place] [address] [facility] * BEDSIDE GLUCOSE - NURSE (05/04/2011 12:04 PM CDT) Bedside Glucose 92Comment: Notify Nurse 70 - 105 mg/dL [facility] - Nurse Specimen Performing Organization Address [facility] Phone Number [facility] [address] [place] [address] [facility] * BEDSIDE GLUCOSE - NURSE (05/04/2011 11:25 AM CDT) Bedside Glucose 49 (L)Comment: Notify Nurse 70 - 105 mg/dL [facility] - Nurse Specimen Performing Organization Address [facility] Phone Number [facility] [address] [place] [phone] [facility] * BEDSIDE GLUCOSE - NURSE (05/04/2011 7:16 AM CDT) Bedside Glucose 142 (H)Comment: Notify Nurse 70 - 105 mg/dL [facility] - Nurse Specimen Performing Organization Address [facility] Phone Number [facility] [address] [place] [phone] [facility] * Lipid Panel (05/04/2011 6:38 AM CDT) Cholesterol 125 0 - 200 mg/dL [facility] Triglycerides 97 0 - 149 mg/dL [facility] HDL 36 (L) 40 - 90 mg/dL [facility] LDL Cholesterol 70 0 - 99 mg/dL [facility] Specimen Blood specimen (specimen) Performing Organization Address [facility] Phone Number [facility] [address] [place] [phone] [facility] * ESTIMATED GFR (05/04/2011 6:38 AM [...] Performed At NTE [facility] Performing Organization Address [facility] Phone Number [facility] [address] [place] [phone] [facility] * Basic metabolic panel (05/04/2011 6:38 [...] Specimen Blood specimen (specimen) Performing Organization Address [facility] Phone Number [facility] [address] [place] [phone] [facility] * BEDSIDE GLUCOSE - NURSE (05/03/2011 8:59 PM CDT) Bedside Glucose 112 (H)Comment: Notify Nurse 70 - 105 mg/dL [facility] - Nurse Specimen Performing Organization Address [facility] Phone Number [facility] [address] [place] [phone] [facility] * BEDSIDE GLUCOSE - NURSE (05/03/2011 5:24 PM CDT) Bedside Glucose 155 (H)Comment: Notify Nurse 70 - 105 mg/dL [facility] - Nurse Specimen Performing Organization Address [facility] Phone Number [facility] [address] [place] [phone] [facility] * BEDSIDE GLUCOSE - NURSE (05/03/2011 12:44 PM CDT) Bedside Glucose 83 70 - 105 mg/dL [facility] - Nurse Specimen Performing Organization Address [facility]/Zipcode Phone Number [facility] [address] [place] [address] [facility] * BEDSIDE GLUCOSE - NURSE (05/03/2011 7:25 AM CDT) Bedside Glucose 107 (H)Comment: Notify Nurse 70 - 105 mg/dL [facility] - Nurse Specimen Performing Organization Address [facility] Phone Number [facility] [address] [place] [address] [facility] * BEDSIDE GLUCOSE - NURSE (05/02/2011 9:14 PM CDT) Bedside Glucose 98Comment: Notify Nurse 70 - 105 mg/dL [facility] - Nurse Specimen Performing Organization Address [facility] Phone Number [facility] [address] [place] [phone] [facility] * BEDSIDE GLUCOSE - NURSE (05/02/2011 5:57 PM CDT) Bedside Glucose 104Comment: Notify Nurse 70 - 105 mg/dL [facility] - Nurse Specimen Performing Organization Address [facility] Phone Number [facility] [address] [place] [phone] [facility] * BEDSIDE GLUCOSE - NURSE (05/02/2011 11:43 AM CDT) Bedside Glucose 120 (H)Comment: Notify Nurse 70 - 105 mg/dL [facility] - Nurse Specimen Performing Organization Address [facility] Phone Number [facility] [address] [place] [address] [phone] [facility] * BEDSIDE GLUCOSE - NURSE (05/02/2011 8:49 AM CDT) Bedside Glucose 126 (H)Comment: Notify Nurse 70 - 105 mg/dL [facility] - Nurse Specimen Performing Organization Address [facility] Phone Number [facility] [address] [place] [phone] [facility] * BEDSIDE GLUCOSE - NURSE (05/01/2011 9:14 PM CDT) Bedside Glucose 110 (H)Comment: Notify Nurse 70 - 105 mg/dL [facility] - Nurse Specimen Performing Organization Address City/[facility]/Zipcode Phone Number [facility] [address] [place] [phone] [facility] * BEDSIDE GLUCOSE - NURSE (05/01/2011 4:45 PM CDT) Bedside Glucose 121 (H)Comment: Notify Nurse 70 - 105 mg/dL [facility] - Nurse Specimen Performing Organization Address City/[facility] Phone Number [facility] [address] [place] [phone] [facility] * BEDSIDE GLUCOSE - NURSE (05/01/2011 12:06 PM CDT) Bedside Glucose 81Comment: Notify Nurse 70 - 105 mg/dL [facility] - Nurse Specimen Performing Organization Address City/[facility] Phone Number [facility] [address] [place] [address] [phone] [facility] * BEDSIDE GLUCOSE - NURSE (05/01/2011 7:37 AM CDT) Bedside Glucose 129 (H)Comment: Notify Nurse 70 - 105 mg/dL [facility] - Nurse Specimen Performing Organization Address City/[facility] Phone Number [facility] [address] [place] [address] 89694 [facility] * BEDSIDE GLUCOSE - NURSE (04/30/2011 9:05 PM CDT) Bedside Glucose 133 (H)Comment: Notify Nurse 70 - 105 mg/dL [facility] - Nurse Specimen Performing Organization Address City/[facility] Phone Number [facility] [address] [place] [phone] [facility] * BEDSIDE GLUCOSE - NURSE (04/30/2011 5:08 PM CDT) Bedside Glucose 182 (H)Comment: Notify Nurse 70 - 105 mg/dL [facility] - Nurse Specimen Performing Organization Address City/[facility] Phone Number [facility] [address] [place] [address] [phone] [facility] * BEDSIDE GLUCOSE - NURSE (04/30/2011 12:34 PM CDT) Bedside Glucose 160 (H)Comment: Notify Nurse 70 - 105 mg/dL [facility] - Nurse Specimen Performing Organization Address [facility] Phone Number [facility] [address] [place] [address] [phone] [facility] * BEDSIDE GLUCOSE - NURSE (04/30/2011 8:43 AM CDT) Bedside Glucose 134 (H)Comment: Notify Nurse 70 - 105 mg/dL [facility] - Nurse Specimen Performing Organization Address [facility] Phone Number [facility] [address] [place] [address] [phone] [facility] * Comprehensive Metabolic Panel (04/30/2011 7:20 [...] specimen (specimen) Performing Organization Address [facility] Phone Number [facility] [address] [place] [address] [phone] [facility] * CBC And Differential (04/30/2011 7:20 [...] specimen (specimen) Performing Organization Address [facility] Phone Number [facility] [address] [place] [address] [phone] [facility] * BEDSIDE GLUCOSE - NURSE (04/29/2011 8:54 PM CDT) Bedside Glucose 168 (H)Comment: Notify Nurse 70 - 105 mg/dL [facility] - Nurse Specimen Performing Organization Address [facility] Phone Number [facility] [address] [place] [phone] [facility] * BEDSIDE GLUCOSE - NURSE (04/29/2011 6:24 PM CDT) Bedside Glucose 212 (H)Comment: Notify Nurse 70 - 105 mg/dL [facility] - Nurse Specimen Performing Organization Address [facility] Phone Number [facility] [address] [place] [phone] [facility] * MRI brain without contrast [...] the time of interpretation. Performing Organization Address City/State/[facility] Centercode Phone Number [facility] * BEDSIDE GLUCOSE - NURSE (04/29/2011 11:57 AM CDT) Bedside Glucose 117 (H) 70 - 105 mg/dL [facility] - Nurse Specimen Performing Organization Address [facility] Phone Number [facility] [address] [place] [address] [phone] [facility] * BEDSIDE GLUCOSE - NURSE (04/29/2011 8:09 AM CDT) Bedside Glucose 145 (H)Comment: Notify Nurse 70 - 105 mg/dL [facility] - Nurse Specimen Performing Organization Address [facility] Phone Number [facility] [address] [place] [address] [phone] [facility] * EXTERNAL RADIOLOGY PROCEDURE (04/29/2011 12:00 AM CDT) Narrative Performed At Finalized by system utility as part of the [employer] clean up. Procedure Note 01/04/2016 7:47 PM DIRECTOR OF UNDERGRADUATE ADMISSIONS Finalized by system utility as part of the [employer] project clean up. * BEDSIDE GLUCOSE - NURSE (04/28/2011 9:15 PM CDT) Bedside Glucose 162 (H) 70 - 105 mg/dL [facility] - Nurse Specimen Performing Organization Address [facility] Phone Number [facility] [address] [place], [place] [address] [facility] * BEDSIDE GLUCOSE - NURSE (04/28/2011 5:59 PM CDT) Bedside Glucose 133 (H)Comment: Notify Nurse 70 - 105 mg/dL [facility] - Nurse Specimen Performing Organization Address City/[facility] Phone Number [facility] [address] [place] [address] [facility] * BEDSIDE GLUCOSE - NURSE (04/28/2011 12:24 PM CDT) Bedside Glucose 199 (H)Comment: Notify Nurse 70 - 105 mg/dL [facility] - Nurse Specimen Performing Organization Address City/[facility] Phone Number [facility] [address] [place] [address] [phone] [facility] * BEDSIDE GLUCOSE - NURSE (04/28/2011 9:13 AM CDT) Bedside Glucose 150 (H)Comment: Notify Nurse 70 - 105 mg/dL [facility] - Nurse Specimen Performing Organization Address City/[facility] Phone Number [facility] [address] [place] [address] [phone] [facility] * BEDSIDE GLUCOSE - NURSE (04/27/2011 9:16 PM CDT) Bedside Glucose 155 (H) 70 - 105 mg/dL [facility] - Nurse Specimen Performing Organization Address [facility] Phone Number [facility] [address] [place] [address] [phone] [facility] * BEDSIDE GLUCOSE - NURSE (04/27/2011 6:37 PM CDT) Bedside Glucose 116 (H)Comment: Notify Nurse 70 - 105 mg/dL [facility] - Nurse Specimen Performing Organization Address City/[facility] Phone Number [facility] [address] [place] [address] [phone] [facility] * BEDSIDE GLUCOSE - NURSE (04/27/2011 11:45 AM CDT) Bedside Glucose 198 (H)Comment: Notify Nurse 70 - 105 mg/dL [facility] - Nurse Specimen Performing Organization Address City/[facility] Phone Number [facility] [address] [place] [address] [phone] [facility] * BEDSIDE GLUCOSE - NURSE (04/27/2011 8:45 AM CDT) Bedside Glucose 166 (H) 70 - 105 mg/dL [facility] - Nurse Specimen Performing Organization Address City/[facility] Phone Number [facility] [address] [place] [address] [phone] [facility] * BEDSIDE GLUCOSE - NURSE (04/26/2011 9:06 PM CDT) Bedside Glucose 184 (H)Comment: Notify Nurse 70 - 105 mg/dL [facility] - Nurse Specimen Performing Organization Address [facility] Phone Number [facility] [address] [place] [address] 33538 [facility] * BEDSIDE GLUCOSE - NURSE (04/26/2011 5:18 PM CDT) Bedside Glucose 118 (H)Comment: Notify Nurse 70 - 105 mg/dL [facility] - Nurse Specimen Performing Organization Address City/[facility] Phone Number [facility] [address] [place] [address] SOFTLAB * BEDSIDE GLUCOSE - NURSE (04/26/2011 11:56 AM CDT) Bedside Glucose 149 (H)Comment: Notify Nurse 70 - 105 mg/dL SOFT[facility] - Nurse Specimen Performing Organization Address [facility] Phone Number [facility] [address] [place] [address] SOFT[facility] * BEDSIDE GLUCOSE - NURSE (04/26/2011 7:52 AM CDT) Bedside Glucose 167 (H) 70 - 105 mg/dL SOFT[facility] - Nurse Specimen Performing Organization Address [facility]ode Phone Number [facility] [address] [place] [address] SOFT[facility] * BEDSIDE GLUCOSE - NURSE (04/25/2011 8:49 PM CDT) Bedside Glucose 179 (H) 70 - 105 mg/dL SOFT[facility] - Nurse Specimen Performing Organization Address City/State/[facility] Phone Number [facility] [address] [place] [address] SOFT[facility] * BEDSIDE GLUCOSE - NURSE (04/25/2011 4:49 PM CDT) Bedside Glucose 122 (H)Comment: Notify Nurse 70 - 105 mg/dL SOFT[facility] - Nurse Specimen Performing Organization Address [facility] Phone Number [facility] [address] [place] [address] SOFT[facility] * BEDSIDE GLUCOSE - NURSE (04/25/2011 12:52 PM CDT) Bedside Glucose 113 (H)Comment: Notify Nurse 70 - 105 mg/dL SOFT[facility] - Nurse Specimen Performing Organization Address [facility] Phone Number [facility] [address] [place] [address] SOFT[facility] * ECHOCARDIOGRAM (04/25/2011 12:45 PM CDT) Narrative Performed At Finalized by system utility as part of the [employer] project clean up. Procedure Note 01/04/2016 7:47 PM DIRECTOR OF UNDERGRADUATE ADMISSIONS Finalized by system utility as part of the [employer] project clean up. * ECHOCARDIOGRAM (04/25/2011 12:45 PM CDT) Narrative Performed At * BEDSIDE GLUCOSE - NURSE (04/25/2011 9:50 AM CDT) Bedside Glucose 116 (H) 70 - 105 mg/dL SOFT[facility] - Nurse Specimen Performing Organization Address [facility] Phone Number [facility] [address] [place] [address] SOFT[facility] * NIV Echo W/Doppler & Color Flw (04/25/2011 9:06 AM CDT) Specimen Narrative Performed At Finalized by system utility as part of the [employer] project clean up. [facility] Procedure Note 01/05/2016 4:11 PM DIRECTOR OF UNDERGRADUATE ADMISSIONS Finalized by system utility as part of the [employer] project clean up. Performing Organization Address City/[facility] Phone Number [facility] * NIV EXTRACRANIAL [...] (specimen) Performing Organization Address City/State/Zipcode Phone Number [facility] [address] [place] [address] SOFT[facility] * EXTERNAL RADIOLOGY PROCEDURE (04/25/2011 12:00 AM CDT) Narrative Performed At Finalized by system utility as part of the [employer] project clean up. Procedure Note 01/04/2016 7:47 PM DIRECTOR OF UNDERGRADUATE ADMISSIONS Finalized by system utility as part of the [employer] project clean up. * BEDSIDE GLUCOSE - NURSE (04/24/2011 9:14 PM CDT) Bedside Glucose 155 (H)Comment: Notify Nurse 70 - 105 mg/dL SOFT[facility] - Nurse Specimen Performing Organization Address [facility] Phone [facility] [address] [place] [address] SOFT[facility] * BEDSIDE GLUCOSE - NURSE (04/24/2011 5:28 PM CDT) Bedside Glucose 154 (H)Comment: Notify Nurse 70 - 105 mg/dL [facility] - Nurse Specimen Performing Organization Address [facility] Phone Number [facility] [address] [place] [address] SOFT[facility] * BEDSIDE GLUCOSE - NURSE (04/24/2011 11:55 AM CDT) Bedside Glucose 92Comment: Notify Nurse 70 - 105 mg/dL [facility] - Nurse Specimen Performing Organization Address [facility] Phone Number [facility] [address] [place] [address] SOFT[facility] * CANCELLED TEST (04/24/2011 10:31 AM CDT) Cancelled Test see below SOFTLAB Specimen Performing Organization Address [facility] Phone [facility] [address] [place] [address] SOFT[facility] * BEDSIDE GLUCOSE - NURSE (04/24/2011 7:29 AM CDT) Bedside Glucose 186 (H)Comment: Notify Nurse 70 - 105 mg/dL [facility]FT[facility] - Nurse Specimen Performing Organization Address [facility] Phone Number [facility] [address] [place] [address] SOFT[facility] * URINE CULTURE (04/24/2011 7:10 AM CDT) Urine Culture CORRECTED REPORT-Mammoth count: SOFT[facility] No growth.-The following was resulted in error-Mammoth count >100,000 cfu/ml of at least-Dr. Carson notified 04/27/2011 14:32 pjn Specimen Urine specimen (specimen) Performing Organization Address [facility] Phone Number [facility] [address] [place] [address] SOFT[facility] * Urinalysis, Reflex Culture If Needed (04/24/2011 7:10 AM CDT) Color, UA Yellow Appearance CLEAR Specific 1.012 1.003 - 1.030 Central, UA pH, UA 5.5 5.0 - 8.0 [...] Specimen Blood specimen (specimen) Performing Organization Address [facility] Phone Number [facility] [address] [place] [address] SOFT[facility] * Vitamin B12 (04/24/2011 6:47 AM CDT) Vitamin B-12 336 211 - 911 pg/mL SOFT[facility] Comment: Vitamin B-12 Reference Range: Normal =211-911 pg/mL Deficient=32 -246 pg/mL Specimen Blood specimen (specimen) Performing Organization Address [facility]ercome Phone Number [facility] [address] [place] [phone] SOFT[facility] * TSH (04/24/2011 6:47 AM CDT) Pathologist [facility] [place] [facility] TSH 1.410 0.400 - 4.000 uIU/mL SOFT[facility] Specimen Blood specimen (specimen) Performing Organization Address [facility] Centercode Phone Number [facility] [address] [place], [place] [phone] SO[facility] * CBC and differential (04/24/2011 6:47 AM CDT) Pathologist [facility] [place] [facility] WBC 12.4 (H) 4.8 - 10.8 10 [...] Specimen Blood specimen (specimen) Performing Organization Address City/[facility]/Zipcode Phone Number [facility] [address] [place] [address] SOFT[facility] * Basic metabolic panel (04/24/2011 6:47 AM CDT) Pathologist [facility] [place] [facility] Sodium 141 136 - 145 mmol/L SOFTLAB [...] Specimen Blood specimen (specimen) Performing Organization Address [facility] Phone Number [facility] [address] [place] [address] SOFT[facility] * BEDSIDE GLUCOSE - NURSE (04/24/2011 1:28 AM CDT) Bedside Glucose 204 (H)Comment: Notify Nurse 70 - 105 mg/dL [facility] - Nurse Specimen Performing Organization Address [facility] Phone Number [facility] [address] [place] [address] SO[facility] * BEDSIDE GLUCOSE - NURSE (04/23/2011 9:45 PM CDT) Pathologist [facility] [place] [facility] Bedside Glucose 134 (H)Comment: Notify Nurse 70 - 105 mg/dL [facility] - Nurse Specimen Performing Organization Address [facility] Number [facility] [address] [place] [address] SOFT[facility] * SALICYLATES (04/23/2011 2:50 PM CDT) [facility] Salicylate, NEGATIVE SOFT[facility] Urine Specimen Performing Organization Address [facility] Number [facility] [address] [place] [address] SOFT[facility] * Urinalysis, reflex culture if indicated (04/23/2011 2:50 PM CDT) Pathologist [facility] [place] [facility] Color, UA Yellow Appearance CLEAR Specific 1.009 1.003 - 1.030 Central, UA pH, UA 6.0 5.0 - 8.0 [...] * ESTIMATED GFR (04/23/2011 2:11 PM CDT) [facility] GFR MDRD Af >59 >59 ml/min [...] body surface area. Specimen Performing Organization Address [facility] Centercode Phone Number [facility] [address] [place] [phone] SOFT[facility] * Comprehensive metabolic panel (04/23/2011 2:11 PM CDT) [facility] Albumin 4.4 3.4 - 4.8 g/dL SOFTLAB [...] Specimen Blood specimen (specimen) Performing Organization Address City/[facility] Centercode Phone Number [facility] [address] [place] [address] SOFT[facility] * CBC and differential (04/23/2011 2:11 [...] (specimen) Performing Organization Address City/State/Zipcode Phone Number [facility] [address] [place] [address] SOFT[facility] * CT head without contrast (04/23/2011 [...] Specimen Performing Organization Address City/State/Zipcode Phone Number [facility] [address] [place] [address] SOFT[facility] * EXTERNAL RADIOLOGY PROCEDURE (04/23/2011 12:00 AM CDT) Narrative Performed At Finalized by system utility as part of the [employer] project clean up. Procedure Note 01/04/2016 7:47 PM DIRECTOR OF UNDERGRADUATE ADMISSIONS Finalized by system utility as part of the [employer] project clean up. documented in this encounter [...] Given mg STAT, 50 mg ONCE, Intravenous, [facility] 04/23/11 at 1645, For 1 dose [...] Given mg STAT, 2 mg ONCE, Intravenous, [facility] 04/23/11 at 2015, For 1 dose [...]
--- OUTSIDE RECORDS SUMMARY | 2019-05-25 04:55 | XMS REPORT | Encounter Summary ---
Author Author [facility] Organization [facility] Address Unknown Phone Unavailable Care Team Providers Care Motor Overhauler Name Role Phone PCP Unavailable Encounter Details Care Team Description Date Type Department Ramsey Valladares MD [address] [facility] [place] [address] 04/02/2011 Orders Only JORI [place], [place] Social History Date Tobacco Use Types [...] SOFTLAB Performing Organization Address City/State/Zipcode Phone Number [facility] [address] [place] [address] [facility] documented in this encounter Visit Diagnoses Not on filedocumented in this encounter
--- OUTSIDE RECORDS SUMMARY | 2019-05-25 04:55 | XMS REPORT | Encounter Summary ---
Author Author [facility] Organization [facility] Address Unknown Phone Unavailable Care Team Providers Care Cutter Down Name Role Phone PCP Unavailable Encounter Details Care Team Description Date Type Department Ramsey Valladares MD [address] [facility] [place] [address] 04/02/2011 Orders Only [place]OR[place] Social History Date Tobacco Use Types [...] 10.5 mg/dL SOFT[facility] Specimen Narrative Performed At [facility] SOFT[facility] Performing Organization Address City/State/Zipcode Phone Number [facility] [address] [place] [address] [facility] documented in this encounter Visit Diagnoses Not on filedocumented in this encounter
--- OUTSIDE RECORDS SUMMARY | 2019-05-25 04:55 | XMS REPORT | Encounter Summary ---
Author Author [facility] Organization [facility] Address Unknown Phone Unavailable Care Team Providers Care Therapeutic Assistant Name Role Phone PCP Unavailable Encounter Details Care Team Description Date Type Department Ramsey Valladares MD [address] [place] [address] 04/02/2011 Orders Only JORI [place], [place] Social History Date Tobacco Use Types [...] SOFTLAB Performing Organization Address City/State/Zipcode Phone Number [facility] [address] [place], [place] [phone] SO[facility] documented in this encounter Visit Diagnoses Not on filedocumented in this encounter
--- OUTSIDE RECORDS SUMMARY | 2019-05-25 04:55 | XMS REPORT | Encounter Summary ---
Author Author [facility] Organization [facility] Address Unknown Phone Unavailable Care Team Providers Care Highway Patrol Commander Name Role Phone Ramsey Valladares MD PCP [...] PM CDT) Narrative Performed At Procedure Note HistoricalEQ works Documents - 04/10/2013 2:28 AM CDT documented in this encounter Visit Diagnoses Not on filedocumented in this encounter
--- OUTSIDE RECORDS SUMMARY | 2019-05-25 04:55 | XMS REPORT | Encounter Summary ---
Author Author [facility] Organization [facility] Address Unknown Phone Unavailable Care Team Providers Care Ct Scan Tech Name Role Phone Ramsey Valladares MD [...] CDT) Narrative Performed At Procedure Note Historical, [employer]gen Documents - 04/25/2013 3:23 AM CDT * HM EXTERNAL ULTRASOUND (04/26/2013 11:36 AM CDT) Narrative Performed At Procedure Note Historical, [employer]gen Documents - 04/25/2013 3:23 AM CDT * HM IMAGING STUDY (04/26/2013 11:36 AM CDT) Narrative Performed At Procedure Note Historical, [employer] Documents - 04/25/2013 3:23 AM CDT * HM IMAGING STUDY (04/20/2013 6:36 PM CDT) Narrative Performed At A scan was deleted from the Results section by N Historical [[id number]] on 04/25/2013 at5:17 PM (File: [id number]) * ECHOCARDIOGRAM (04/20/2013 6:35 PM CDT) Narrative Performed At A scan was deleted from the Results section by N Historical [[id number]] on 04/25/2013 at5:17 PM (File: [id number]) * HM EXTERNAL ULTRASOUND (04/20/2013 6:35 PM CDT) Narrative Performed At A scan was deleted from the Results section by N Historical [[id number]] on 04/25/2013 at5:17 PM (File: [id number]) * HM IMAGING STUDY (04/20/2013 6:35 PM CDT) Narrative Performed At A scan was deleted from the Results section by N Historical [[id number]] on 04/25/2013 at5:17 PM (File: [id number]) documented in this encounter Visit Diagnoses Not on filedocumented in this encounter
--- OUTSIDE RECORDS SUMMARY | 2019-05-25 04:55 | XMS REPORT | Encounter Summary ---
Author Author [facility] Organization [facility] Address Unknown Phone Unavailable Care Team Providers Care Manager Continuous Improvement Name Role Phone Ramsey Valladares MD PCP Encounter Details Care Team Description Date Type Department Historical, Zeny ProviderMD [address] [place] [address] 04/02/2011 NextGen HISTORICAL CONVERSION Encounter Social History [...]
--- OUTSIDE RECORDS SUMMARY | 2019-05-25 04:55 | XMS REPORT | Encounter Summary ---
Author Author [facility] Organization [facility] Address Unknown Phone Unavailable Care Team Providers Care Locksmith Helper Name Role Phone Ramsey Valladares MD [...]
--- OUTSIDE RECORDS SUMMARY | 2019-05-25 04:55 | XMS REPORT | Encounter Summary ---
Author Author [facility] Organization [facility] Address Unknown Phone Unavailable Care Team Providers Care Clerk Stenographer Name Role Phone PCP Unavailable Encounter Details Care Team Description Date Type Department Ramsey Valladares MD [address] [facility] [place] [address] 04/02/2011 Orders Only JORI [place], [place] Social History Date Tobacco Use Types [...] SOFTLAB Performing Organization Address City/State/Zipcode Phone Number [facility] [address] [place] [address] SOFT[facility] documented in this encounter Visit Diagnoses Not on filedocumented in this encounter
--- OUTSIDE RECORDS SUMMARY | 2019-05-25 04:55 | XMS REPORT | Encounter Summary ---
Author Author [facility] Organization [facility] Address Unknown Phone Unavailable Care Team Providers Care Spinner Frame Name Role Phone Ramsey Valladares MD PCP Encounter Details Care Team Description Date Type Department Ramsey Valladares MD [address] [place] [address] 04/02/2011 NextGen Doc HISTORICAL CONVERSION [...] Valladares MD - 04/23/2011 1:34 PM CDT [facility] Note for Office Visit April 23, 2011 [...] Valladares MD - 04/07/2011 11:44 AM CDT [facility] Communicate Results April 07, 2011 Name: Paul Peters Provider: Ramsey Valladares MD : 1950 C-O PCP: Ramsey Valladares MD Pharmacy: [place] [address] Work Phone: Pharmacy: Laboratory Results: Regarding: Basic [...] Valladares MD - 04/07/2011 11:44 AM CDT [facility] at [address] [place] [address] April 07, 2011 Paul Peters [address] [place] [address]- _ Dear Mr. Peters, This is a [...] Thank you, Ramsey Valladares MD * Ramsey Vlaladares MD - 04/02/2011 4:07 PM CDT [facility] Lab Orders [place]: [address] [place] [address] Patient: Paul Peters Ordering Provider: Ramsey Valladares MD [address] Address: [address] [place] [address]- Gender: M Date of : 1950 SSN: [...] Valladares MD - 04/02/2011 3:54 PM CDT [facility] Nursing Note for Office Visit April 02, [...] Valladares MD - 04/02/2011 3:53 PM CDT [facility] [address] [place] [address] Paul Peters [address] [facility] [place] [address]- _ This is your current medication list [...]
--- OUTSIDE RECORDS SUMMARY | 2019-05-25 04:55 | XMS REPORT | Encounter Summary ---
Author Author [facility] Organization [facility] Address Unknown Phone Unavailable Care Team Providers Care Insurance Rater Name Role Phone PCP Unavailable Encounter Details Care Team Description Date Type Department Ramsey Valladares MD [address] [facility] [place], [place] [id number] 04/02/2011 Orders Only JORI [place] Social History Date Tobacco Use Types [...] Organization Address City/State/Zipcode Phone Number [facility] [address] [place] [address] [facility] documented in this encounter Visit Diagnoses Not on filedocumented in this encounter
--- OUTSIDE RECORDS SUMMARY | 2019-05-25 04:56 | XMS REPORT | Encounter Summary ---
Author Author [facility] Organization [facility] Address Unknown Phone Unavailable Care Team Providers Care Tier In Name Role Phone Ramsey Valladares MD PCP [...]
--- OUTSIDE RECORDS SUMMARY | 2019-05-25 04:56 | XMS REPORT | Encounter Summary ---
Author Author [facility] Organization [facility] Address Unknown Phone Unavailable Care Team Providers Care Component Lab Tech Name Role Phone Ramsey Valladares MD [...]
--- OUTSIDE RECORDS SUMMARY | 2019-05-25 04:56 | XMS REPORT | Encounter Summary ---
Author Author [facility] Organization [facility] Address Unknown Phone Unavailable Care Team Providers Care Mission Manager Name Role Phone Ramsey Valladares MD [...]
--- OUTSIDE RECORDS SUMMARY | 2019-05-25 04:56 | XMS REPORT | Encounter Summary ---
Author Author [facility] Organization [facility] Address Unknown Phone Unavailable Care Team Providers Care Auto Care Center Manager Name Role Phone Ramsey Valladares MD [...]
--- OUTSIDE RECORDS SUMMARY | 2019-05-25 04:56 | XMS REPORT | Encounter Summary ---
Author Author [facility] Organization [facility] Address Unknown Phone Unavailable Care Team Providers Care Mail Handler Name Role Phone Ramsey Valladares MD [...]
--- OUTSIDE RECORDS SUMMARY | 2019-05-25 04:56 | XMS REPORT | Encounter Summary ---
Author Author [facility] Organization [facility] Address Unknown Phone Unavailable Care Team Providers Care Baffle Installer Name Role Phone Ramsey Valladares MD PCP Encounter Details Care Team Description Date Type Department Historical, Zeny ProviderMD [address] [place] [address] 12/02/2010 NextGen HISTORICAL CONVERSION Encounter Social History [...] Comments Vital Sign 148/90 12/02/2010 11:09 AM MEDICAL ASSEMBLER Blood Pressure - - Pulse - - Temperature - - Respiratory Rate - - Oxygen Saturation - - Inhaled Oxygen Concentration 81.3 kg (179 lb 3.2 oz) 12/02/2010 11:09 AM MEDICAL ASSEMBLER Weight - - Height 25.71 06/25/2009 2:59 PM CDT Body Mass Index documented in this encounter Plan of Treatment Not on filedocumented as of this encounter Visit Diagnoses Not on filedocumented in this encounter
--- OUTSIDE RECORDS SUMMARY | 2019-05-25 04:56 | XMS REPORT | Encounter Summary ---
Author Author [facility] Organization [facility] Address Unknown Phone Unavailable Care Team Providers Care Java J2Ee Application Developer Name Role Phone Ramsey Valladares MD PCP Encounter Details Care Team Description Date Type Department Ramsey Valladares MD [address] [place] [address] [phone] 08/05/2010 NextGen Doc HISTORICAL CONVERSION Social History [...] Valladares MD - 08/08/2010 2:30 PM CDT [facility] Nursing Note for Office Visit August [...] today. Patient sta maria teresa that his case management assistant told him he has lice and flees [...] Valladares MD - 08/08/2010 2:30 PM CDT [facility] [address] [place] [address] Paul Peters [address] [place] [address]- _ This is your current medication list [...] Valladares MD - 08/05/2010 10:41 AM CDT [facility] Note for Office Visit August 05, 2010 [...]
--- OUTSIDE RECORDS SUMMARY | 2019-05-25 04:56 | XMS REPORT | Encounter Summary ---
Author Author [facility] Organization [facility] Address Unknown Phone Unavailable Care Team Providers Care Supply Chain Manager Name Role Phone Ramsey Valladares MD PCP Encounter Details Care Team Description Date Type Department Ramsey Valladares MD [address] [place] [address] 11/04/2010 NextGen Doc HISTORICAL CONVERSION [...] Ramsey Valladares MD - 12/04/2010 1:[address] [facility] Communicate Results December 04, 2010 Name: Paul Peters Provider: Ramsey Valladares MD : 1950 C-O PCP: Ramsey Valladares MD (preferred number) Pharmacy: [place] [id number] Work Phone: Pharmacy: Laboratory Results: Regarding: ALT [...] completed: Katherin Martinez LPN 12/04/2010 1:15 PM MACHINE CUTTER * Ramsey Valladares MD - 12/02/2010 11:34 AM FLAT MACHINE CUTTER [facility] Orders [place]: [facility] [address] [facility] [place] [address] Patient: Paul Peters Ordering Provider: Ramsey Valladares MD [address] Address: [address] [place] [address]- Gender: M Date of : 1950 SSN: [...] MD / completed by: Ely Gary PCT MACHINE CUTTER * Ramsey Valladares MD - 12/02/2010 11:18 AM FLAT MACHINE CUTTER [facility] Note for Office Visit December 02, 2010 [...] Reaction Haldol Documented by: Ely Gary PCT [facility] Ramsey Bernal MD - 12/02/2010 11:17 AM [facility] [address] [facility] [place] [address] Paul Peters [address] [place] [address]- _ This is your current medication list [...] information is not correct. Ramsey Valladares MD [facility] Ramsey Bernal MD - 11/04/2010 2:14 PM [facility] Nursing Note for Office Visit November 04, [...] Reaction Haldol Documented by: Ely Gary PCT MACHINE CUTTER documented in this encounter Plan of Treatment Not on filedocumented as of this encounter Visit Diagnoses Not on filedocumented in this encounter
--- OUTSIDE RECORDS SUMMARY | 2019-05-25 04:56 | XMS REPORT | Encounter Summary ---
Author Author [facility] Organization [facility] Address Unknown Phone Unavailable Care Team Providers Care Digital Analyst Name Role Phone PCP Unavailable Encounter Details Care Team Description Date Type Department Ramsey Valladares MD [address] [facility] [place] [address] 07/03/2010 Historical LABORATORY Orders [address] [id number] [place], [place] [id number] Social History Date Tobacco Use Types Packs/Day [...] Performed At Non-fasting [facility] Performing Organization Address [facility] Phone Number [facility] [address] [place] [phone] [facility] * TSH (07/03/2010 1:55 PM CDT) [facility] TSH 0.772Comment: Please note new 0.300 - 4.000 uIU/mL [facility] reference ranges as of 12/17/2010. Specimen Narrative Performed At Non-fasting [facility] Performing Organization Address [facility] Phone Number [facility] [address] [place] [address] [facility] * PSA (07/03/2010 1:55 PM CDT) [facility] PSA 0.51 0.0 - 4.0 ng/mL [facility] Specimen Narrative Performed At Non-fasting [facility] Performing Organization Address [facility] Phone Number [facility] [address] [place] [phone] [facility] * HEMOGLOBIN A1C (07/03/2010 1:55 PM CDT) [facility] Hemoglobin A1C 6.9 (H) 4.0 - 6.0 % [facility] Comment: A1C Interpretive Guidelines: Target value=6.5% Specimen Narrative Performed At Non-fasting [facility] Performing Organization Address [facility] Phone Number [facility] [address] [place] [phone] [facility] * CBC AND DIFFERENTIAL (07/03/2010 1:55 PM CDT) [facility] WBC 6.7 4.8 - 10.8 10 3/cumm [...] % [facility] Specimen Narrative Performed At Non-fasting [facility] Performing Organization Address City/[facility]/Zipcode Phone Number [facility] [address] [place] [address] [facility] * LIPID PANEL (07/03/2010 1:55 PM CDT) Pathologist [facility] Cholesterol 212 (H) 0 - 200 mg/dL [facility] Triglycerides 279 (H) 0 - 149 mg/dL [facility] HDL 40 40 - 90 mg/dL [facility] LDL Cholesterol 116 (H) 0 - 99 mg/dL [facility] Specimen Narrative Performed At Non-fasting [facility] Performing Organization Address City/[facility]/Zipcode Phone Number [facility] [address] [place] [address] [facility] * COMPREHENSIVE METABOLIC PANEL (07/03/2010 1:55 PM CDT) Pathologist [facility] Albumin 4.5 3.4 - 4.8 g/dL [facility] [...] [facility] Performing Organization Address City/State/Zipcode Phone Number [facility] [address] [place] [address] [facility] documented in this encounter Visit Diagnoses Not on filedocumented in this encounter
--- OUTSIDE RECORDS SUMMARY | 2019-05-25 04:56 | XMS REPORT | Encounter Summary ---
Author Author [facility] Organization [facility] Address Unknown Phone Unavailable Care Team Providers Care Project Manager Process Development Name Role Phone PCP Unavailable Encounter Details Care Team Description Date Type Department Ramsey Valladares MD [address] [facility] [place], [place] [id number] 12/02/2010 Historical LABORATORY Orders [address] [id number] [place], [place] [id number] Social History Date Tobacco Use Types Packs/Day [...] Diagnosis ESTIMATED GFR Routine 12/02/2010 11:35 AM EMPLOYMENT RECRUITER ALT Routine 12/02/2010 11:35 AM EMPLOYMENT RECRUITER HEMOGLOBIN A1C Routine 12/02/2010 11:35 AM EMPLOYMENT RECRUITER LIPID PANEL Routine 12/02/2010 11:35 AM EMPLOYMENT RECRUITER BASIC METABOLIC PANEL Routine 12/02/2010 11:35 AM EMPLOYMENT RECRUITER documented in this encounter Results * ESTIMATED GFR (12/02/2010 11:35 AM EMPLOYMENT RECRUITER) GFR MDRD Af >59 >59 ml/min [facility] [...] area. Specimen Performing Organization Address [facility] Phone Number [facility] [address] [place] [address] [facility] * ALT (12/02/2010 11:35 AM EMPLOYMENT RECRUITER) ALT 26 10 - 46 U/L [facility] Specimen Performing Organization Address [facility] Phone Number [facility] [address] [place] [address] [facility] * HEMOGLOBIN A1C (12/02/2010 11:35 AM EMPLOYMENT RECRUITER) Hemoglobin A1C 9.8 (H) 4.0 - 6.0 % [facility] Comment: A1C Interpretive Guidelines: Target value=6.5% Specimen Performing Organization Address [facility] Phone Number [facility] [address] [place] [phone] [facility] * LIPID PANEL (12/02/2010 11:35 AM EMPLOYMENT RECRUITER) Cholesterol 227 (H) 0 - 200 mg/dL [facility] Triglycerides 165 (H) 0 - 149 mg/dL [facility] HDL 46 40 - 90 mg/dL [facility] LDL Cholesterol 148 (H) 0 - 99 mg/dL [facility] Specimen Performing Organization Address [facility] Phone Number [facility] [address] [place] [address] [facility] * BASIC METABOLIC PANEL (12/02/2010 11:35 AM EMPLOYMENT RECRUITER) Sodium 137 136 - 145 mmol/L [facility] [...] Organization Address City/State/Zipcode Phone Number [facility] [address] [place], [place] [phone] [facility] documented in this encounter Visit Diagnoses Not on filedocumented in this encounter
--- OUTSIDE RECORDS SUMMARY | 2019-05-25 04:56 | XMS REPORT | Encounter Summary ---
Author Author [facility] Organization [facility] Address Unknown Phone Unavailable Care Team Providers Care Medical Referral Coordinator Name Role Phone Ramsey Valladares MD [...]
--- OUTSIDE RECORDS SUMMARY | 2019-05-25 04:56 | XMS REPORT | Encounter Summary ---
Author Author [facility] Organization [facility] Address Unknown Phone Unavailable Care Team Providers Care Direct Chill Casting Operator Name Role Phone Ramsey Valladares MD PCP Encounter Details Care Team Description Date Type Department Ramsey Valladares MD [address] [place] [address] [phone] 07/03/2010 NextGen Doc HISTORICAL CONVERSION Social History [...] Valladares MD - 07/31/2010 1:21 PM CDT [facility] Phone Note July 31, 2010 Patient: Paul Peters Provider: Ramsey Valladares MD : 1950 C-O PCP: (use this number) Pharmacy: [facility] [id number] (Rx used) Work Phone: Pharmacy: Last PE: [...] Valladares MD - 07/04/2010 4:49 PM CDT [facility] Communicate Results July 04, 2010 Name: Paul Peters Provider: Ramsey Valladares MD : 1950 C-O PCP: Pharmacy: [place] [address] Work Phone: Pharmacy: Laboratory Results: Regarding: CBC [...] Valladares MD - 07/04/2010 4:49 PM CDT [facility] [address] [place] [address] July 04, 2010 Paul Peters [address] [place] [address]- _ Dear Mr. Peters, This is a [...] Valladares MD - 07/03/2010 1:47 PM CDT [facility] Lab [facility] [place] [address] [place] [address] Patient: Paul Peters Ordering Provider: Ramsey Valladares MD 178 Address: [address] [place] [address]- Gender: M Date of : 1950 SSN: [...] Valladares MD - 07/03/2010 1:22 PM CDT [facility] Note for Office Visit July 03, 2010 [...]
--- OUTSIDE RECORDS SUMMARY | 2019-05-25 04:56 | XMS REPORT | Encounter Summary ---
Author Author [facility] Organization [facility] Address Unknown Phone Unavailable Care Team Providers Care General Magistrate Name Role Phone Ramsey Valladares MD PCP Encounter Details Care Team Description Date Type Department Historical, Zeny ProviderMD [address] Address [place] [address] 08/08/2010 NextGen HISTORICAL CONVERSION Encounter Social History [...]
--- OUTSIDE RECORDS SUMMARY | 2019-05-25 04:56 | XMS REPORT | Encounter Summary ---
Author Author [facility] Organization [facility] Address Unknown Phone Unavailable Care Team Providers Care Emergency Medical Tech Name Role Phone Ramsey Valladares MD [...]
--- OUTSIDE RECORDS SUMMARY | 2019-05-25 04:56 | XMS REPORT | Encounter Summary ---
Author Author [facility] Organization [facility] Address Unknown Phone Unavailable Care Team Providers Care Farm Owner Operator Name Role Phone Ramsey Valladares MD PCP Encounter Details Care Team Description Date Type Department Ramsey Valladares MD [address] [place] [address] 12/18/2010 NextGen Doc HISTORICAL CONVERSION Social History Date Tobacco Use Types Packs/Day Years Used Never Assessed Sex Assigned at Date Recorded Not on file Industry Job Start Date Occupation Not on file Not on file Not on file Travel End Travel History Travel Start No recent travel history available. documented as of this encounter Progress Notes * aRmsey Valladares MD - 12/18/2010 2:41 PM SLIDE FASTENER CHAIN ASSEMBLER [facility] [address] [place] [address] December 18, 2010 RE:Paul Kendrick Lorraine [address] [place] [address]- : 1950 _ To whom it may concern, Paul is asking for free directory s ervice on his phone because he is blind. Hopefully this will help him with acti vities of daily living. Please call the office if there is any questions about t he letter or anything else. Sincerely yours, Ramsey Valladares MD E FASTENER CHAIN ASSEMBLER * Ramsey Valladares MD - 12/18/2010 2:41 PM SLIDE FASTENER CHAIN ASSEMBLER [facility] Phone Note December 18, 2010 Patient: Paul Peters Provider: Ramsey Valladares MD : 1950 C-O PCP: Ramsey Valladares MD Pharmacy: [place] [phone] Work Phone: Pharmacy: Last PE: 07/03/2010 Time of call: 12/18/2010 2:30 PM Last Lipids: 12/02/2010 Last TSH: 07/03/2010 Caller: Patient, walked in Reason for call: Question Pain Assessment: Pain assessment is not applicable. Message: asking for dr to fill out another form to [employer] [facility] also asking for proof that he is blind so he can get free directory serv ice from [employer]. Call received by: Katherin Martinez LPN. Active [...] Reaction Haldol Physician Disposition: form mailed to [employer]. okay to form a letter st ating he is blind and mail it to pt. so he can send it in with bill. do not fax it to the number given. Recorded by: Katherin Martinez LPN 12/18/2010 2:41 PM Verbal order, read back and confirmed: Ramsey Valladares MD Action Taken: letter mailed to pt. Notification Completed: Katherin Martinez LPN 12/18/2010 2:40 PM E FASTENER CHAIN ASSEMBLER documented in this encounter Plan of Treatment Not on filedocumented as of this encounter Visit Diagnoses Not on filedocumented in this encounter
--- OUTSIDE RECORDS SUMMARY | 2019-05-25 04:56 | XMS REPORT | Encounter Summary ---
Author Author [facility] Organization [facility] Address Unknown Phone Unavailable Care Team Providers Care Cattle Care Worker Name Role Phone Ramsey Valladares MD PCP Encounter Details Care Team Description Date Type Department Historical, Zeny ProviderMD [address] [place] [address] 07/03/2010 NextGen HISTORICAL CONVERSION Encounter Social History [...]
--- OUTSIDE RECORDS SUMMARY | 2019-05-25 04:57 | XMS REPORT | Encounter Summary ---
Author Author [facility] Organization [facility] Address Unknown Phone Unavailable Care Team Providers Care Respite Worker Name Role Phone Ramsey Valladares MD PCP Encounter Details Care Team Description Date Type Department Historical, Zeny Busby MD [address] [place] [address] 03/27/2010 [facility] HISTORICAL CONVERSION Social History Date Tobacco [...] Busby MD - 03/27/2010 2:08 PM CDT [facility] Lab Results March 27, 2010 Patient: Paul Peters : 1950 PSA: 06/25/2009 03:55 PM Description Result Units Range Flags PSA 0.5 ng/mL 0.0-4.0 Estimated GFR: 06/25/2009 03:55 PM Description Result Units Range Flags uZAV-Jfb-Ixqjwki American >59 ml/min >59 eGFR- >59 ml/min [...] 02:55 PM Description Result Units Range Flags nVLH-Sum-Byyyfne American 52 ml/min >59 eGFR- >59 ml/min [...] 02:20 PM Description Result Units Range Flags eVLB-Whv-Vasceuq American >59 ml/min >59 eGFR- >59 ml/min [...] 10:10 AM Description Result Units Range Flags nIWQ-Ird-Puiakmb American >59 ml/min >59 eGFR- >59 ml/min [...] 10:26 AM Description Result Units Range Flags iVEA-Lpn-Delofkt American >59 ml/min >59 eGFR- >59 ml/min >59 Comments: ?rack 9S0-MCC; NONFASTING; Chronic Kidney Disease is defined as either kidney damage or a GFR less than 60ml/min that persists for at least 3 months. Stage 3=30-59 ml/min Stage 4=15-29 ml/min Stage 5=<15 ml/min *Patient result is normalized to ml/min/1.73 square meters of body surface area. Creatinine: 05/21/2008 10:26 AM Description Result Units Range Flags Creatinine 1.1 mg/dL 0.6-1.2 Comments: ?rack [id number]-VXC; NONFASTING; A1CR: 05/07/2006 02:56 PM Description Result [...]
--- OUTSIDE RECORDS SUMMARY | 2019-05-25 04:57 | XMS REPORT | Encounter Summary ---
Author Author [facility] Organization [facility] Address Unknown Phone Unavailable Care Team Providers Care Metal Baler Name Role Phone Ramsey Valladares MD PCP [...]
--- OUTSIDE RECORDS SUMMARY | 2019-05-25 04:57 | XMS REPORT | Encounter Summary ---
Author Author [facility] Organization [facility] Address Unknown Phone Unavailable Care Team Providers Care Rod Bending Machine Operator Name Role Phone Ramsey Valladares MD PCP Encounter Details Care Team Description Date Type Department Historical, Zeny Busby MD [address] [place] [address] 06/25/2009 [facility] HISTORICAL CONVERSION Encounter Social History Date Tobacco [...] 12-LEAD (06/25/2009) EKG 12-LEAD Comment: Updated from [facility] LAB History Specimen Performing Organization Address City/State/Zipcode Phone Number [facility] [address] [facility] [place] [address] [facility] [address] [facility] [place] [address] documented in this encounter Visit Diagnoses Not on filedocumented in this encounter
--- OUTSIDE RECORDS SUMMARY | 2019-05-25 04:57 | XMS REPORT | Encounter Summary ---
Author Author [facility] Organization [facility] Address Unknown Phone Unavailable Care Team Providers Care Senior Game Designer Name Role Phone Ramsey Valladares MD [...]
--- OUTSIDE RECORDS SUMMARY | 2019-05-25 04:57 | XMS REPORT | Encounter Summary ---
Author Author [facility] Organization [facility] Address Unknown Phone Unavailable Care Team Providers Care Building Guard Deputy Sheriff Name Role Phone Ramsey Valladares MD PCP Encounter Details Care Team Description Date Type Department Ramsey Valladares MD [address] [place] [address] [phone] 10/14/2009 [facility] Doc HISTORICAL CONVERSION Social History [...] Ramsey Valladares MD - 10/14/2009 2:25 PM [facility] Note for Office Visit October 14, [...] Reaction Haldol Documented by: Ely Gary PCT INTEGRITY SPECIALIST documented in this encounter Plan of Treatment Not on filedocumented as of this encounter Visit Diagnoses Not on filedocumented in this encounter
--- OUTSIDE RECORDS SUMMARY | 2019-05-25 04:57 | XMS REPORT | Encounter Summary ---
Author Author [facility] Organization [facility] Address Unknown Phone Unavailable Care Team Providers Care Residential Property Tax Appraiser Name Role Phone Ramsey Valladares MD PCP Encounter Details Care Team Description Date Type Department Ramsey Valladares MD [address] [facility] [place], [place] [address] 06/25/2009 Abstract JORI [place], [place] Social History Date Tobacco Use Types [...]
--- OUTSIDE RECORDS SUMMARY | 2019-05-25 04:57 | XMS REPORT | Encounter Summary ---
Author Author [facility] Organization [facility] Address Unknown Phone Unavailable Care Team Providers Care Clinical Assessment Manager Name Role Phone Ramsey Valladares MD [...]
--- OUTSIDE RECORDS SUMMARY | 2019-05-25 04:57 | XMS REPORT | Encounter Summary ---
Author Author [facility] Organization [facility] Address Unknown Phone Unavailable Care Team Providers Care Environmental Program Manager Name Role Phone Ramsey Valladares MD PCP Encounter Details Care Team Description Date Type Department Ramsey Valladares MD [address] [place] [address] [phone] 06/27/2010 Next[facility] Doc HISTORICAL CONVERSION Social History [...]
--- OUTSIDE RECORDS SUMMARY | 2019-05-25 04:57 | XMS REPORT | Encounter Summary ---
Author Author [facility] Organization [facility] Address Unknown Phone Unavailable Care Team Providers Care Heart Specialist Name Role Phone PCP Unavailable Encounter Details Care Team Description Date Type Department Blaine Armijo MD [address] [place], [place] [phone] 05/27/2010 Historical LABORATORY Orders [address] [id number] [place] [employer], [place] [id number] Social History Date Tobacco Use Types Packs/Day [...] Specific 1.031 (H) 1.003 - 1.030 [facility] [place], UA pH, UA 5.5 5.0 - 8.0 [...] 3 /HPF [facility] Specimen Performing Organization Address [facility] Phone Number [facility] [address] [place], [place] [phone] [facility] * ESTIMATED GFR (05/27/2010 4:55 PM CDT) [facility] GFR MDRD Af >59 >59 ml/min [...] area. Specimen Performing Organization Address [facility] Phone Number [facility] [address] [place], [place] [phone] [facility] * COMPREHENSIVE METABOLIC PANEL (05/27/2010 4:55 PM CDT) [facility] Albumin 4.6 3.4 - 4.8 g/dL [...] 36 mmol/L [facility] Specimen Performing Organization Address [facility] Phone Number [facility] [address] [place], [place] [phone] [facility] * CBC AND DIFFERENTIAL (05/27/2010 4:55 [...] 2.5 % [facility] Specimen Performing Organization Address City/[facility] Phone Number [facility] [address] [place], [place] [phone] [facility] documented in this encounter Visit Diagnoses Not on filedocumented in this encounter
--- OUTSIDE RECORDS SUMMARY | 2019-05-25 04:57 | XMS REPORT | Encounter Summary ---
Author Author [facility] Organization [facility] Address Unknown Phone Unavailable Care Team Providers Care Production Intern Name Role Phone Ramsey Valladares MD PCP [...]
--- OUTSIDE RECORDS SUMMARY | 2019-05-25 04:57 | XMS REPORT | Encounter Summary ---
Author Author [facility] Organization [facility] Address Unknown Phone Unavailable Care Team Providers Care Road Manager Name Role Phone Ramsey Valladares MD [...]
--- OUTSIDE RECORDS SUMMARY | 2019-05-25 04:57 | XMS REPORT | Encounter Summary ---
Author Author [facility] Organization [facility] Address Unknown Phone Unavailable Care Team Providers Care Stock Checkerer Name Role Phone Ramsey Valladares MD PCP Encounter Details Care Team Description Date Type Department Ramsey Valladares MD [address] [facility] [place] [address] [phone] 04/29/2010 NextGen Doc HISTORICAL CONVERSION Social History [...] Valladares MD - 04/29/2010 10:44 AM CDT [facility] Phone Note April 29, 2010 Patient: Paul Peters Provider: Ramsey Valladares MD : 1950 C-O [facility] Work Phone: Pharmacy: Last PE: 06/25/2009 Time of call: 04/29/2010 10:42 AM Last Lipids: 06/13/2009 Last TSH: 02/18/2009 Caller: Patient Reason for call: Clarification on treatment Pain Assessment: Pain assessment is not applicable. 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 a [employer] faxed a request to fill but did [...]
--- OUTSIDE RECORDS SUMMARY | 2019-05-25 04:57 | XMS REPORT | Encounter Summary ---
Author Author [facility] Organization [facility] Address Unknown Phone Unavailable Care Team Providers Care Pipe Smoking Machine Operator Name Role Phone Ramsey Valladares [...]
--- OUTSIDE RECORDS SUMMARY | 2019-05-25 04:57 | XMS REPORT | Encounter Summary ---
Author Author [facility] Organization [facility] Address Unknown Phone Unavailable Care Team Providers Care Supervisor Shipping Name Role Phone Ramsey Valladares MD PCP [...]
--- OUTSIDE RECORDS SUMMARY | 2019-05-25 04:58 | XMS REPORT | Encounter Summary ---
Author Author [facility] Organization [facility] Address Unknown Phone Unavailable Care Team Providers Care Sales Promotion Officer Name Role Phone Ramsey Valladares MD [...] CDT) Narrative Performed At Procedure Note Historical, [employer] Documents - 04/17/2013 12:27 PM CDT documented in this encounter Visit Diagnoses Not on filedocumented in this encounter
--- OUTSIDE RECORDS SUMMARY | 2019-05-25 04:58 | XMS REPORT | Encounter Summary ---
Author Author [facility] Organization [facility] Address Unknown Phone Unavailable Care Team Providers Care Core Machine Tender Name Role Phone Ramsey Valladares MD [...]
--- OUTSIDE RECORDS SUMMARY | 2019-05-25 04:58 | XMS REPORT | Encounter Summary ---
Author Author [facility] Organization [facility] Address Unknown Phone Unavailable Care Team Providers Care Mutuel Machine Operator Name Role Phone Ramsey Valladares [...]
--- OUTSIDE RECORDS SUMMARY | 2019-05-25 04:58 | XMS REPORT | Encounter Summary ---
Author Author [facility] Organization [facility] Address Unknown Phone Unavailable Care Team Providers Care Aligner Name Role Phone Ramsey Valladares MD PCP Encounter Details Care Team Description Date Type Department Historical, Zeny ProviderMD [address] Address [place] [address] 11/19/2008 NextGen HISTORICAL CONVERSION Encounter Social History [...] Comments Vital Sign 140/88 11/19/2008 3:14 PM CIGARETTE TIPPER Blood Pressure - - Pulse - - Temperature - - Respiratory Rate - - Oxygen Saturation - - Inhaled Oxygen Concentration 87.4 kg (192 lb 9.6 oz) 11/19/2008 3:14 PM CIGARETTE TIPPER Weight - - Height - - Body Mass Index documented in this encounter Plan of Treatment Not on filedocumented as of this encounter Visit Diagnoses Not on filedocumented in this encounter
--- OUTSIDE RECORDS SUMMARY | 2019-05-25 04:58 | XMS REPORT | Encounter Summary ---
Author Author [facility] Organization [facility] Address Unknown Phone Unavailable Care Team Providers Care Channel Development Manager Name Role Phone Ramsey Valladares MD PCP Encounter Details Care Team Description Date Type Department Ramsey Valladares MD [address] [place] [address] [phone] 11/19/2008 Stretchr Doc HISTORICAL CONVERSION Social History Date Tobacco Use Types Packs/Day Years Used Never Assessed Sex Assigned at Date Recorded Not on file Industry Job Start Date Occupation Not on file Not on file Not on file Travel End Travel History Travel Start No recent travel history available. documented as of this encounter Progress Notes * Historical, Zeny ProviderMD - 12/04/2008 2:57 PM [facility] Lab Results Last 999 days December 04, [...] Description Result Units Range Flags Collect Date [id number]-Zxu-[id number] American >59 ml/min >59 06/06/2008 11:37 AM [...] Description Result Units Range Flags Collect Date zACJ-Rmg-Xqlimcx American >59 ml/min >59 05/21/2008 11:15 AM eGFR- >59 ml/min >59 05/21/2008 11:15 AM Comments: ?rack 5X4-DVE; NONFASTING; Chronic Kidney Disease is defined as [...] mg/dL 0.6-1.2 05/21/2008 11:15 AM Comments: ?rack 0I2-HSI; NONFASTING; A1CR: 05/07/2006 02:56 PM Description Result [...] Ramsey Moya MD - 11/20/2008 1:02 PM [facility] Communicate Results November 20, 2008 Name: Paul Peters Provider: Ramsey Valladares MD : 1950 C-O PCP: Pharmacy: [place] [address] Work Phone: Pharmacy: Medications Brand Name Generic [...] completed: Katherin Martinez LPN 11/20/2008 1:01 PM NG UNIT FELTING MACHINE OPERATOR aRmsey Bernal MD - 11/20/2008 9:55 AM DRYING UNIT FELTING MACHINE OPERATOR [facility] Phone Note November 20, 2008 Patient: Paul Peters Provider: Ramsey Valladares MD : 1950 C-O PCP: Pharmacy: [facility] [id number] (Rx used) Work Phone: Pharmacy: Time of [...] take for ed? Notification Completed: Katherin Martinez LION TAMER 11/20/2008 11:34 AM NG UNIT FELTING MACHINE OPERATOR * Ramsey Valladares MD - 11/19/2008 3:20 PM DRYING UNIT FELTING MACHINE OPERATOR [facility] Nursing Note for Office Visit November [...] Reaction Haldol Documented by: Ely Gary PCT NG UNIT FELTING MACHINE OPERATOR * Ramsey Valladares MD - 11/19/2008 3:19 PM DRYING UNIT FELTING MACHINE OPERATOR [facility] [address] [place] [address] Paul Peters [address] [place] [address]- _ This is your current medication list [...] information is not correct. Ramsey Valladares MD NG UNIT FELTING MACHINE OPERATOR documented in this encounter Plan of Treatment Not on filedocumented as of this encounter Visit Diagnoses Not on filedocumented in this encounter
--- OUTSIDE RECORDS SUMMARY | 2019-05-25 04:58 | XMS REPORT | Encounter Summary ---
Author Author [facility] Organization [facility] Address Unknown Phone Unavailable Care Team Providers Care Rock Loader Name Role Phone PCP Unavailable Encounter Details Care Team Description Date Type Department Katie Ram MD [address] [place] [address] [phone] 06/04/2009 Historical LABORATORY Orders [address] [id number] [place] [address] Social History Date Tobacco Use Types Packs/Day [...] - Nurse Specimen Performing Organization Address [facility] Phone Number [facility] [address] [place] [phone] [facility] * BEDSIDE GLUCOSE - NURSE (06/04/2009 6:01 PM CDT) Bedside Glucose 85 70 - 105 mg/dL [facility] - Nurse Comment: 2PIC ID'sConf Notify Nurse Specimen Performing Organization Address [facility] Phone Number [facility] [address] [place] [phone] [facility] * DRUG SCREEN (8) MEDICAL [...] 500 ng/mL [facility] Specimen Performing Organization Address [facility] Phone Number [facility] [address] [place], [place] [phone] [facility] * ESTIMATED GFR (06/04/2009 6:49 AM [...] surface area. Specimen Performing Organization Address [facility] Phone Number [facility] [address] [place] [phone] [facility] * LIPID PANEL (06/04/2009 6:49 AM CDT) Cholesterol 214 (H) 0 - 200 mg/dL [facility] Triglycerides 176 (H) 0 - 149 mg/dL [facility] HDL 42 40 - 90 mg/dL [facility] LDL Cholesterol 137 (H) 0 - 99 mg/dL [facility] Specimen Performing Organization Address [facility] Phone Number [facility] [address] [place] [phone] [facility] * TSH (REFLEX FREE T4 IF ABNORMAL) (06/04/2009 6:49 AM CDT) TSH 3.122 0.300 - 4.000 uIU/mL [facility] Specimen Performing Organization Address [facility] Phone Number [facility] [address] [place] [phone] [facility] * COMPREHENSIVE METABOLIC PANEL (06/04/2009 6:49 [...] 36 mmol/L [facility] Specimen Performing Organization Address [facility] Phone Number [facility] [address] [place] [address] [phone] [facility] * CBC AND DIFFERENTIAL (06/04/2009 6:49 [...] 2.5 % [facility] Specimen Performing Organization Address [facility] Phone Number [facility] [address] [place] [address] [phone] [facility] * HEMOGLOBIN A1C (06/04/2009 6:49 AM CDT) Hemoglobin A1C 6.4 (H) 4.0 - 6.0 % [facility] Comment: A1C Interpretive Guidelines: Target value=6.5% Specimen Performing Organization Address [facility] Phone Number [facility] [address] [place] [address] [phone] [facility] * BEDSIDE GLUCOSE - NURSE (06/04/2009 6:16 AM CDT) Bedside Glucose 138 (H) 70 - 105 mg/dL [facility] - Nurse Comment: 2PIC ID'sConf Notify Nurse Specimen Performing Organization Address [facility] Phone Number [facility] [address] [place] [phone] [facility] documented in this encounter Visit Diagnoses Not on filedocumented in this encounter
--- OUTSIDE RECORDS SUMMARY | 2019-05-25 04:58 | XMS REPORT | Encounter Summary ---
Author Author [facility] Organization [facility] Address Unknown Phone Unavailable Care Team Providers Care Commercial Lines Assistant Name Role Phone Ramsey Valladares MD PCP Encounter Details Care Team Description Date Type Department Historical, Zeny ProviderMD [address] Address [place] [address] 06/13/2009 NextGen HISTORICAL CONVERSION Encounter Social History [...]
--- OUTSIDE RECORDS SUMMARY | 2019-05-25 04:58 | XMS REPORT | Encounter Summary ---
Author Author [facility] Organization [facility] Address Unknown Phone Unavailable Care Team Providers Care Bit And Shank Department Supervisor Name Role Phone Ramsey Valladares MD [...]
--- OUTSIDE RECORDS SUMMARY | 2019-05-25 04:58 | XMS REPORT | Encounter Summary ---
Author Author [facility] Organization [facility] Address Unknown Phone Unavailable Care Team Providers Care Trophy Assembler Name Role Phone Ramsey Valladares MD PCP [...]
--- OUTSIDE RECORDS SUMMARY | 2019-05-25 04:58 | XMS REPORT | Encounter Summary ---
Author Author [facility] Organization [facility] Address Unknown Phone Unavailable Care Team Providers Care Outpatient Services Director Name Role Phone Ramsey Valladares MD [...]
--- OUTSIDE RECORDS SUMMARY | 2019-05-25 04:58 | XMS REPORT | Encounter Summary ---
Author Author [facility] Organization [facility] Address Unknown Phone Unavailable Care Team Providers Care Director Of Regulatory Affairs Name Role Phone PCP Unavailable Encounter Details Care Team Description Date Type Department Ramsey Valladares MD [address] [place], [place] [id number] 06/13/2009 Historical LABORATORY Orders [address] [id number] [place], [place] [id number] Social History Date Tobacco Use Types Packs/Day [...] ESTIMATED GFR (06/25/2009 3:55 PM CDT) Pathologist [facility] GFR MDRD Af >59 >59 ml/min [facility] [...] body surface area. Specimen Performing Organization Address [facility] Phone Number [facility] [address] [place] [phone] [facility] * PSA (06/25/2009 3:55 PM CDT) [facility] PSA 0.5 0.0 - 4.0 ng/mL [facility] Specimen Performing Organization Address [facility] Phone Number [facility] [address] [place] [phone] [facility] * BASIC METABOLIC PANEL (06/25/2009 3:55 PM CDT) Pathologist [facility] Sodium 141 136 [...] 10.5 mg/dL [facility] Specimen Performing Organization Address [facility] Phone Number [facility] [address] [place] [address] [facility] * ESTIMATED GFR (06/13/2009 2:55 PM CDT) Pathologist [facility] GFR MDRD Af >59 >59 ml/min [facility] [...] Performed At non-fasting [facility] Performing Organization Address [facility] Phone Number COUNT INCLUDES THE [facility] [address] [place], [place] [phone] [facility] * ALT (06/13/2009 2:55 PM CDT) ALT 20 10 - 46 U/L [facility] Specimen Narrative Performed At non-fasting [facility] Performing Organization Address [facility] Phone [facility] [address] [place] [phone] [facility] * HEMOGLOBIN A1C (06/13/2009 2:55 PM CDT) Hemoglobin A1C 6.3 (H) 4.0 - 6.0 % [facility] Comment: A1C Interpretive Guidelines: Target value=6.5% Specimen Narrative Performed At non-fasting [facility] Performing Organization Address [facility] [address] [place] [phone] [facility] * LIPID PANEL (06/13/2009 2:55 PM CDT) Cholesterol 225 (H) 0 - 200 mg/dL [facility] Triglycerides 216 (H) 0 - 149 mg/dL [facility] HDL 39 (L) 40 - 90 mg/dL [facility] LDL Cholesterol 143 (H) 0 - 99 mg/dL [facility] Specimen Narrative Performed At non-fasting [facility] Performing Organization Address [facility] Phone Number COUNT INCLUDES THE [facility] [address] [place] [phone] [facility] * BASIC METABOLIC PANEL (06/13/2009 2:55 [...] [facility] Performing Organization Address City/State/Zipcode Phone Number [facility] [address] [place] [address] [facility] documented in this encounter Visit Diagnoses Not on filedocumented in this encounter
--- OUTSIDE RECORDS SUMMARY | 2019-05-25 04:58 | XMS REPORT | Encounter Summary ---
Author Author [facility] Organization [facility] Address Unknown Phone Unavailable Care Team Providers Care Purchasing Contracting Clerk Name Role Phone Ramsey Valladares MD PCP Encounter Details Care Team Description Date Type Department Ramsey Valladares MD [address] [place] [address] 01/29/2009 NextGen Doc HISTORICAL CONVERSION [...] Valladares MD - 02/19/2009 4:51 PM CDT [facility] Communicate Results February 19, 2009 Name: Paul Peters Provider: Ramsey Valladares MD : 1950 C-O PCP: Pharmacy: [place] [phone] Work Phone: Pharmacy: Laboratory Results: Regarding: A1C [...] Valladares MD - 02/18/2009 2:02 PM CDT [facility] Lab Orders [place]: [facility] [address] [place] [address] [place] [address] Patient: Paul Peters Ordering Provider: Ramsey Valladares MD [address] Address: [address] [place] [address]- Gender: M Date of : 1950 SSN: [id number] C-O Fasting: No Priority: Routine Date Ordered: [...] TSH [X] TSH C 250.00 272.4 * Ramsey Valladares MD - 02/18/2009 1:51 PM CDT [facility] Nursing Note for Office Visit February [...] Valladares MD - 02/18/2009 1:50 PM CDT [facility] [address] [place] [address] Paul Peters [address] [place] [address]- _ This is your current medication list [...] Valladares MD - 01/29/2009 11:44 AM CDT [facility] Phone Note January 29, 2009 Patient: Paul Peters Provider: Ramsey Valladares MD : 1950 C-O PCP: (use this number) Pharmacy: [place] [id number] Work Phone: Pharmacy: Time of call: 01/29/2009 [...] VALENTE 01/29/2009 4:33 PM (Left message on OBMedical machine to call back.) documented in this encounter Plan of Treatment Not on filedocumented as of this encounter Visit Diagnoses Not on filedocumented in this encounter
--- OUTSIDE RECORDS SUMMARY | 2019-05-25 04:58 | XMS REPORT | Encounter Summary ---
Author Author [facility] Organization [facility] Address Unknown Phone Unavailable Care Team Providers Care Warehouse Supervisor Name Role Phone Ramsey Valladares MD PCP Encounter Details Care Team Description Date Type Department Historical, Zeny ProviderMD [address] Address [place] [address] 02/18/2009 NextGen HISTORICAL CONVERSION Encounter Social History [...]
--- OUTSIDE RECORDS SUMMARY | 2019-05-25 04:58 | XMS REPORT | Encounter Summary ---
Author Author [facility] Organization [facility] Address Unknown Phone Unavailable Care Team Providers Care Co Founder And President Name Role Phone Ramsey Valladares MD PCP Encounter Details Care Team Description Date Type Department Ramsey Valladares MD [address] [facility] [place] [address] 06/13/2009 NextGen Doc HISTORICAL CONVERSION [...] Valladares MD - 07/01/2009 4:04 PM CDT [facility] [address] [facility] [place] [address] Paul Peters [address] [place] [address] _ This is your current medication list [...] Valladares MD - 06/28/2009 2:04 PM CDT [facility] Communicate Results June 28, 2009 Name: Paul Lopezall [place] Provider: Ramsey Valladares MD : 1950 C-O PCP: Pharmacy: [place] [address] Work Phone: Pharmacy: Laboratory Results: Regarding: Basic [...] Valladares MD - 06/28/2009 2:03 PM CDT [facility] at [address] [place] [address] June 28, 2009 Paul Peters [address] [place] [address] _ Dear Mr. Peters, This is a [...] Valladares MD - 06/25/2009 3:23 PM CDT [facility] [place] [address] [facility] [place] [address] Patient: Paul Peters Ordering Provider: Ramsey Valladares MD 178 Address: [address] [place], [place] [address] [place] [address]- Gender: M Date of : 1950 SSN: [id number] C-O Fasting: No Priority: Routine Date Ordered: 06/25/2009 Completed by: Ely Gary PCT Specimen Collection by Lab: Date (collected): Time (collected): By Code Description Tube Dx Dx Panels BASIC [X] Basic panel (8) C 401.9 250.00 Chemistry PSA [X] PSA C V76.44 * Ramsey Valladares MD - 06/25/2009 3:22 PM CDT [facility] X-Ray Order Form June 25, 2009 Patient: Paul Peters : 1950 C-O [address] [facility] Home phone: Gender: Male [place] [address]- Date of Exam: 06/25/2009 Encounter Nbr: [id number] Ordering Provider: Ramsey Valladares MD [facility] Provider will interpret. History / Symptoms HTN Insurance Medicare [employer] [place] [id number] Group number: [id number] The insurance is active. Subscriber: Paul Peters X-RAY ORDERS [id number] Chest, PA & Lateral Lab tests ordered same day, too. Provider: Ramsey Valladares MD / completed by Ely Gary PCT * Ramsey Valladares MD - 06/25/2009 3:07 PM CDT [facility] Nursing Note for Office Visit June 25, [...] Psychotic Reaction Haldol Documented by: Ely Gary [facility] * Ramsey Valladares MD - 06/25/2009 3:06 PM CDT [facility] [address] [facility] [place] [address] Paul Peters [address] [place] [address]- _ This is your current medication list [...] Valladares MD - 06/14/2009 4:11 PM CDT [facility] Lab Orders [place]: [facility] [address] [facility] [place] [address] Patient: Paul Peters Ordering Provider: Ramsey Valladares MD 178 Address: [facility] [place] [address]- Gender: M Date of : 1950 SSN: [id number] C-O Fasting: No Priority: Routine Date Ordered: 06/14/2009 Completed by: Katherin Martinez LPN Specimen Collection by Lab: Date (collected): Time (collected): By Code Description Tube Dx Dx Chemistry BUN [X] BUN C 794.4 CREA [X] Creatinine C 794.4 * Ramsey Valladares MD - 06/14/2009 4:10 PM CDT [facility] Communicate Results June 14, 2009 Name: Paul Peters Provider: Ramsey Valladares MD : 1950 C-O PCP: (preferred number) Pharmacy: [place] [address] Work Phone: Pharmacy: Laboratory Results: Regarding: A1C [...] Valladares MD - 06/14/2009 2:00 PM CDT [facility] Lab Results Last 2 Weeks June 14, 2009 Patient: Paul Peters : 1950 A1C: 06/13/2009 02:55 PM Description Result Units Range Flags A1C 6.3 % 4.0-6.0 H Comments: non-fasting A1C Interpretive Guidelines: Target value=6.5% Estimated GFR: 06/13/2009 02:55 PM Description Result Units Range Flags [id number]-Bcb-Ebxhyqp American 52 ml/min >59 eGFR- >59 ml/min [...] Valladares MD - 06/13/2009 3:29 PM CDT [facility] Phone Note June 13, 2009 Patient: Paul Peters Provider: Ramsey Valladares MD : 1950 C-O PCP: Pharmacy: [facility] (Rx used) Work Phone: Pharmacy: Time of [...] Valladares MD - 06/13/2009 2:50 PM CDT [facility] Lab Orders [place]: [address] [place] [address] Patient: Paul Peters Ordering Provider: Ramsey Valladares MD 178 Address: [address] [place] [address]- Gender: M Date of : 1950 SSN: [id number] C-O Fasting: No Priority: Routine Date Ordered: [...] - 06/13/2009 2:15 PM CDT [facility] Note for Office Visit June 13, 2009 Patient: Paul Peters Provider: Ramsey Valladares MD : 1950 C-O PCP: Age: 58 Years 6 Months Pain Assessment: The patient is not in pain. (Pain scale used: Mankowski) Do you have any reason to suspect abuse or neglect in the home? No. Nursing Comments: [facility] Follow up Vital Signs BP: 114/68 left [...] Valladares MD - 06/13/2009 2:14 PM CDT [facility] [address] [facility] [place] [address] Paul Peters [address] [place] [address] _ This is your current medication list [...]
--- OUTSIDE RECORDS SUMMARY | 2019-05-25 04:59 | XMS REPORT | Continuity of Care Document ---
Author Organization Unknown Address Unknown Allergies Active Description Code Type Severity Reaction Onset Reported/Identified Relationship to Patient Clinical Status Yes haloperidol [id number] Drug Allergy Mild N/A 04/03/2014 Medications There is no data. Problems Date Dx Coded Attending Type Code Diagnosis Diagnosed By 04/03/2014 FAITH JIANG DO Ot 873.0 OPEN WOUND OF SCALP 04/03/2014 FAITH JIANG DO Ot E849.7 ACCID IN RESIDENT INSTIT 04/03/2014 FAITH JIANG DO Ot E884.4 FALL FROM BED 05/28/2014 SHAMAR EDWARDS, KETURAH T Ot 250.00 DIAB MAICO WO COMPL, TYPE II OR UNSPEC TY 05/28/2014 SHAMAR EDWARDS, KETUARH Aagrwal Ot 443.9 PERIPH VASCULAR DIS NOS 05/28/2014 SHAMAR EDWARDS, KETURAH Agarwal Ot 781.94 FACIAL WEAKNESS 11/26/2014 MIGUEL HENSON DO Ot 733.90 11/26/2014 MARK CAAL OPERATIONS SUPERVISOR 2ND SHIFT Ot 719.45 JOINT PAIN-PELVIS 11/26/2014 MARK CAAL OPERATIONS SUPERVISOR 2ND SHIFT Ot 729.5 PAIN IN LIMB 11/26/2014 MARK CAAL OPERATIONS SUPERVISOR 2ND SHIFT Ot 729.81 SWELLING OF LIMB 07/01/2015 MIGUEL HENSON DO Ot 519.8 07/01/2015 MIGUEL HENSON DO Ot 786.2 07/03/2015 MIGUEL HENSON DO Ot 519.8 07/03/2015 MIGUEL HENSON DO Ot 786.2 09/25/2015 MIGUEL HENSON DO Ot A41.9 SEPSIS, UNSPECIFIED ORGANISM 09/25/2015 MIGUEL HENSON DO Ot E11.9 TYPE 2 DIABETES MELLITUS WITHOUT COMPLIC 09/25/2015 MIGUEL HENSON DO Ot F02.81 DEMENTIA IN OTH DISEASES CLASSD ELSWHR W 09/25/2015 MIGUEL HENSON DO Ot G30.9 ALZHEIMER'S DISEASE, UNSPECIFIED 09/25/2015 GELLENDER DO, MIGUEL Recinos Ot H54.0 BLINDNESS, BOTH EYES 09/25/2015 GELLENDER DO, MIGUEL Recinos Ot N39.0 URINARY TRACT INFECTION, SITE NOT SPECIF 09/26/2015 GELLENDER DO, MIGUEL Recinos Ot 733.90 09/26/2015 GELLENDER DO, MIGUEL Recinos Ot 519.8 09/26/2015 GELLENDER DO, MIGUEL Recinos Ot 786.2 12/27/2015 GELLENDER DO, MIGUEL Recinos Ot S60.522A 12/27/2015 GELLENDER DO, MIGUEL Recinos Ot X58.XXXA 12/27/2015 GELLENDER DO, MIGUEL Recinos Ot Y99.8 05/25/2019 GELLENDER DO, MIGUEL Recinos Ot 519.8 RESP SYSTEM DISEASE NEC 05/25/2019 GELLENDER DO, MIGUEL Recinos Ot 786.2 COUGH 05/25/2019 GELLENDER DO, MIGUEL Recinos Ot S60.522A BLISTER (NONTHERMAL) OF LEFT HAND, INITI 05/25/2019 GELLENDER DO, MIGUEL Recinos Ot X58.XXXA EXPOSURE TO OTHER SPECIFIED FACTORS, INI 05/25/2019 GELLENDER DO, MIGUEL Recinos Ot Y99.8 OTHER EXTERNAL CAUSE STATUS Procedures There is no data. Results Test Result Range Complete urinalysis with reflex to culture - 05/25/19 03:20 Urine color determination YELLOW NRG Urine clarity determination SLIGHTLY CLOUDY NRG Urine pH measurement by test strip 5 5-9 Specific gravity of urine by test strip 1.015 1.016-1.022 Urine protein assay by test strip, semi-quantitative 3+ NEGATIVE Urine glucose detection by automated test strip 2+ NEGATIVE Erythrocytes detection in urine sediment by light microscopy 4+ NEGATIVE Urine ketones detection by automated test strip NEGATIVE NEGATIVE Urine nitrite detection by test strip NEGATIVE NEGATIVE Urine total bilirubin detection by test strip NEGATIVE NEGATIVE Urine urobilinogen measurement by automated test strip (mass/volume) NORMAL NORMAL Urine leukocyte esterase detection by dipstick 3+ NEGATIVE Automated urine sediment erythrocyte count by microscopy (number/high power field) RARE NRG Automated urine sediment leukocyte count by microscopy (number/high power field) > [HPF] NRG Bacteria detection in urine sediment by light microscopy FEW NRG Crystals detection in urine sediment by light microscopy NONE NRG Casts detection in urine sediment by light microscopy NONE NRG Mucus detection in urine sediment by light microscopy NEGATIVE NRG Complete urinalysis with reflex to culture YES NRG Complete blood count (CBC) with automated white blood cell (WBC) differential - 05/25/19 03:25 Blood leukocytes automated count (number/volume) 10.7 10*3/uL 4.3-11.0 Blood erythrocytes automated count (number/volume) 5.77 10*6/uL 4.35-5.85 Venous blood hemoglobin measurement (mass/volume) 16.2 g/dL 13.3-17.7 Blood hematocrit (volume fraction) 49 % 40-54 Automated erythrocyte mean corpuscular volume 85 [foz_us] 80-99 Automated erythrocyte mean corpuscular hemoglobin (mass per erythrocyte) 28 pg 25-34 Automated erythrocyte mean corpuscular hemoglobin concentration measurement (mass/volume) 33 g/dL 32-36 Automated erythrocyte distribution width ratio 14.3 % 10.0- 14.5 Automated blood platelet count (count/volume) 251 10*3/uL 130-400 Automated blood platelet mean volume measurement 11.0 [foz_us] 7.4-10.4 Automated blood neutrophils/100 leukocytes 76 % 42-75 Automated blood lymphocytes/100 leukocytes 18 % 12-44 Blood monocytes/100 leukocytes 7 % 0-12 Automated blood eosinophils/100 leukocytes 0 % 0-10 Automated blood basophils/100 leukocytes 0 % 0-10 Blood neutrophils automated count (number/volume) 8.1 10*3 1.8-7.8 Blood lymphocytes automated count (number/volume) 1.9 10*3 1.0-4.0 Blood monocytes automated count (number/volume) 0.7 10*3 0.0- 1.0 Automated eosinophil count 0.0 10*3/uL 0.0-0.3 Automated blood basophil count (count/volume) 0.0 10*3/uL 0.0-0.1 Comprehensive metabolic panel - 05/25/19 03:25 Serum or plasma sodium measurement (moles/volume) 146 mmol/L 135-145 Serum or plasma potassium measurement (moles/volume) 4.6 mmol/L 3.6-5.0 Serum or plasma chloride measurement (moles/volume) 110 mmol/L 98-107 Carbon dioxide 21 mmol/L 21-32 Serum or plasma anion gap determination (moles/volume) 15 mmol/L 5-14 Serum or plasma urea nitrogen measurement (mass/volume) 50 mg/dL 7-18 Serum or plasma creatinine measurement (mass/volume) 1.44 mg/dL 0.60-1.30 Serum or plasma urea nitrogen/creatinine mass ratio 35 NRG Serum or plasma creatinine measurement with calculation of estimated glomerular filtration rate 49 NRG Serum or plasma glucose measurement (mass/volume) 445 mg/dL 70-105 Serum or plasma calcium measurement (mass/volume) 10.2 mg/dL 8.5-10.1 Serum or plasma total bilirubin measurement (mass/volume) 1.3 mg/dL 0.1-1.0 Serum or plasma alkaline phosphatase measurement (enzymatic activity/volume) 109 U/L 40-136 Serum or plasma aspartate aminotransferase measurement (enzymatic activity/volume) 25 U/L 5-34 Serum or plasma alanine aminotransferase measurement (enzymatic activity/volume) 29 U/L 0-55 Serum or plasma protein measurement (mass/volume) 8.6 g/dL 6.4-8.2 Serum or plasma albumin measurement (mass/volume) 3.9 g/dL 3.2-4.5 CALCIUM CORRECTED 10.3 mg/dL 8.5-10.1 Magnesium - 05/25/19 03:25 Magnesium 2.8 mg/dL 1.8-2.4 Serum or plasma amylase measurement (enzymatic activity/volume) - 05/25/19 03:25 Serum or plasma amylase measurement (enzymatic activity/volume) 53 U/L 25-125 Lipase - 05/25/19 03:25 Lipase 70 U/L 8-78 Capillary blood glucose measurement by glucometer (mass/volume) - 05/25/19 03:40 Capillary blood glucose measurement by glucometer (mass/volume) 356 mg/dL 70-110 Capillary blood glucose measurement by glucometer (mass/volume) - 05/25/19 04:30 Capillary blood glucose measurement by glucometer (mass/volume) 262 mg/dL 70-110 Encounters ACCT No. Visit Date/Time Discharge Status Pt. Type Provider Facility Loc./Unit Complaint [id number] 12/07/2015 15:38:00 12/07/2015 23:59:59 CLS Outpatient MIGUEL HENSON DO [facility] GLC PURULENT BLISTERS TO LEFT HAND/PALM [id number] 09/21/2015 18:40:00 09/25/2015 10:33:00 DIS Inpatient MIGUEL HENSON DO [facility] 4TH DECREASED LOC,SUSPECT SEPSIS [id number] 06/07/2015 10:42:00 06/07/2015 23:59:59 CLS Outpatient MIGUEL HENSON DO [facility] RAD INCREASED TEMP AND COUGHING [id number] 11/26/2014 11:30:00 11/26/2014 14:20:00 DIS Emergency MARK CAAL APRN [facility] ER LEFT LEG PAIN/SWELLING [id number] 05/28/2014 11:40:00 05/28/2014 16:22:00 DIS Emergency KETURAH IBANEZ MD [facility] ER STROKE SYM [id number] 04/03/2014 19:51:00 04/03/2014 21:55:00 DIS Emergency FAITH JIANG DO [facility] ER FALL [id number] 10/18/2013 15:51:00 10/18/2013 23:59:59 CLS Outpatient MIGUEL HENSON DO [facility] RAD [id number] 05/25/2019 04:20:00 ACT Inpatient MIMI XIONG MD [facility] 4TH UTI;URINARY RETENTION;DEHYDRATION;UNCONTROLLED [id number] 06/08/2015 04:25:49 ACT Document Registration
--- OUTSIDE RECORDS SUMMARY | 2019-05-25 04:59 | XMS REPORT | Encounter Summary ---
Author Author [facility] Organization [facility] Address Unknown Phone Unavailable Care Team Providers Care Architecture Analyst Name Role Phone Ramsey Valladares MD PCP Encounter Details Care Team Description Date Type Department Historical, Zeny ProviderMD [address] Address [place] [address] [facility] H[facility]ORICAL CONVERSION Encounter Social History Date Tobacco [...] * COLONOSCOPY (06/29/2003) Colonoscopy Comment: Updated from [facility] MEDICAL History CLINIC LAB Specimen Performing Organization Address City/State/Zipcode Phone Number [facility] [address] [place] [address] [facility] [address] [place] [address] documented in this encounter Visit Diagnoses Not on filedocumented in this encounter
[2019-05-25 05:05] VITALS: BP 131/91
[2019-05-25] MEDS ORDERED: FLEET ENEMA ADULT 1 EA BTL PR PRN (05:30)
--- NOTE | 2019-05-25 05:30 | NUR ---
MARK SALDAÑA admitted to room 406-1, with an admitting diagnosis of UTI, URINARY RETENTION, DEHYDRATION, UNCONTROLLED DIABETES, CONSTIPATION, on 05/25/19 from ED via CART, accompanied by STAFF.MARK SALDAÑA introduced to surroundings, call light, bed controls, phone, TV, temperature control, lights, meal times, smoking policy, visitor policy, side rail policy, bathrooms and showers. Patient Rights given to patient in the handbook. MARK SALDAÑA verbalizes understanding that [facility] is not responsible for the loss or damage to any personal effects or valuables that are kept in the patients possession during their hospitalization. THE PATIENT'S PLAN OF CARE WAS DISCUSSED WITH THE PATIENT. PT IS CONFUSED & UNABLE TO COMPREHEND. MARK SALDAÑA verbalizes understanding of Interdisciplinary Patient Education. Patient and/or family were informed about the Rapid Response Team and its purpose.
--- NOTE | 2019-05-25 06:15 | NUR ---
PT POOR HISTORIAN-UNABLE TO PARTICIPATE IN ADMISSION PROCESS- PT ONLY RESPONDS TO QUESTIONS WITH "NO & LEAVE ME ALONE." WITHOUT MAKING EYE CONTACT WITH THE PERSON SPEAKING TO HIM. THIS RN CALLED & SPOKE WITH BRANT WEISS AT [facility] [place] [facility] WHERE PT LIVES THIS RN WAS INFORMED PT IS ON A MECHANICAL SOFT DIET, NECTAR THICKENED LIQUIDS, PT IS A 2 PERSON TRANSFER TOTAL ASSIST, PT IS UNABLE TO WALK, IS INCONTINENT OF BOWEL & BLADDER, CAN BE AGGRESSIVE, YELLS OUT OBSCENITIES AT TIMES, LAST WEIGHTS WERE ON 04/12/19: 143 POUNDS, 05/08/19: 139.4 POUNDS, PNEUMONIA VACCINE 08/15/14
--- NOTE | 2019-05-25 06:20 | Diagnostic Imaging Report ---
INDICATION: Dysuria and patient is unable to communicate verbally. Portable upright AP view of the chest is obtained with comparison made study of 09/21/2015. FINDINGS: Heart size and pulmonary vascularity are within normal limits. There is airspace disease in the medial right lower lobe. No pneumothorax or significant pleural fluid is identified. IMPRESSION: Medial right lower lobe pneumonitis or pneumonia. This could be on the basis of aspiration and clinical correlation would be useful. Dictated by: Dictated on workstation # [id number]
--- NOTE | 2019-05-25 06:41 | Diagnostic Imaging Report ---
INDICATION: Dysuria Portable supine image of the abdomen is obtained. Comparison is made to study of 11/26/2014. There is mild stool throughout the colon. There is no transition point seen to indicate an obstruction. No free intraperitoneal gas or pneumatosis is seen on limited study. IMPRESSION: No acute abnormality or evidence of bowel obstruction. Dictated by: Dictated on workstation # [id number]
[2019-05-25] MEDS: inSUlin ASPART (NovoLOG) 1 UNIT/0.01 ML (CHARGE PER UNIT) SC SCH ×4 (07:11→21:12)
[2019-05-25 07:32] VITALS: BP 134/81
--- NOTE | 2019-05-25 07:53 | History & Physicial ---
History of Present Illness History of Present Illness Reason for visit/HPI Patient is resident of a [facility]. Patient has multiple problems. Patient evaluated in emergency room Patient has UTI, weight loss recently, elevated blood sugars diabetes, dehydration, chest x-ray showed right middle lobe pneumonia, constipation history,. Dementia without talking. Urinary retention and renal insufficiency. Patient does not communicate. Patient is a DO NOT RESUSCITATE. Patient is DO NOT INTUBATE Date of Admission May 25, 2019 at 04:20 Time Seen by a Provider: 07:48 I consulted on this patient on 05/25/19 07:48 Attending Physician Peter Sanchez MD Admitting Physician Julio Henson DO Consult Allergies and Home Medications Allergies Coded Allergies: haloperidol (Unverified Allergy, Mild, 04/03/14) Home Medications Acetaminophen 325 Mg Tablet, 325 MG PO DAILY, (Reported) Acetaminophen 325 Mg Tablet, 650 MG PO Q6H PRN for PAIN, (Reported) TAKES 2 (325 MG) TABLETS Amino Acids/Protein Hydrolys 30 Ml Liquid.pkt, 30 ML PO DAILY, (Reported) Ascorbate Calcium 500 Mg Tablet, 500 MG PO DAILY, (Reported) Aspirin 325 Mg Tablet, 325 MG PO DAILY, (Reported) Calcium Carbonate/Vitamin D3 1 Each Tablet, 1 TAB PO BID, (Reported) Cholecalciferol (Vitamin D3) 1,000 Unit Tablet, 1,000 UNIT PO DAILY, (Reported) Clonazepam 2 Mg Tab.rapdis, 2 MG PO HS, (Reported) Clonazepam 1 Mg Tab.rapdis, 1 MG PO DAILY, (Reported) Dextrose 37.5 Gm Gel..gram., 1 PACKET PO UD PRN for HYPOGLYCEMIA, (Reported) Divalproex Sodium 125 Mg Cap, 125 MG PO DAILY, (Reported) Divalproex Sodium 125 Mg Cap, 250 MG PO BID, (Reported) Donepezil HCl 5 Mg Tablet, 5 MG PO HS, (Reported) Escitalopram Oxalate 20 Mg Tablet, 20 MG PO HS, (Reported) Gabapentin 300 Mg Capsule, 300 MG PO TID, (Reported) Gabapentin 300 Mg Capsule, 600 MG PO HS, (Reported) TAKES 2 (300 MG) CAPSULES Glucagon,Human Recombinant 1 Mg/Kit Soln, 1 MG IJ UD PRN for HYPOGLYCEMIA, (Reported) Hydrocodone Bit/Acetaminophen 1 Each Tablet, 1 TAB PO TID PRN for PAIN, (Reported) Memantine HCl 10 Mg Tablet, 10 MG PO BID, (Reported) Mirtazapine 15 Mg Tab.rapdis, 7.5 MG PO HS, (Reported) Multivitamin 1 Each Tablet, 1 TAB PO DAILY, (Reported) Potassium Chloride 20 Meq Tab.er.prt, 20 MEQ PO DAILY, (Reported) Risperidone 2 Mg Tablet, 2 MG PO BID, (Reported) Sennosides/Docusate Sodium 1 Each Tablet, 1 TAB PO DAILY PRN for CONSTIPATION, (Reported) Trazodone HCl 100 Mg Tablet, 100 MG PO HS, (Reported) Zinc 50 Mg Tablet, 50 MG PO DAILY, (Reported) Patient Home Medication List Home Medication List Reviewed: No Past Wmjcfgm-Htssha-Lyzzqy Hx Patient Social History Employed/Student: retired Recreational Drug Use: No Smoking Status: Unknown if Ever Smoked 2nd Hand Smoke Exposure: No Recent Foreign Travel: No Contact w/other who traveled: No Recent Hopitalizations: No Recent Infectious Disease Expo: No Immunizations Up To Date Tetanus Booster (TDap): Unknown Date of Pneumonia Vaccine: Aug 15, 2014 Date of Influenza Vaccine: Sep 09, 2015 Seasonal Allergies Seasonal Allergies: No Surgeries Yes (LEFT HIP SURGERY--NOTED ON XRAY) Respiratory No Cardiovascular Yes High Cholesterol Neurological Yes (DEMENTIA WITH BEHAVIOR DISTURBANCE. PSEUDOBULBAR AFFECT, PER SENIOR CARE RECORDS. PT APPARENTLY IS NON-VERBAL AND DOES NOT FOLLOW COMMANDS, ACCORDING TO OLD RECORDS. PT HAS BEEN NON-AMBULATORY FOR YEARS. ) Dementia, Stroke Reproductive System Hx Reproductive Disorders: No Genitourinary Yes UTI-Chronic Gastrointestinal Yes Chronic Constipation Musculoskeletal No Endocrine History of Endocrine Disorders: Yes Endocrine Disorders: Diabetes, Non-Insulin dep HEENT History of HEENT Disorders: No Loss of Vision: Denies Cancer No Psychosocial History of Psychiatric Problem: Yes ("behavior disturbance"; DEMENTIA WITH BEHAVIOR DISTURBANCE; PSEUDOBULBAR AFFECT) Behavioral Health Disorders: Anxiety, Depression Integumentary History of Skin or Integumenta: No Blood Transfusions History of Blood Disorders: No Family Medical History Family Hx: Patient reports no known family medical history. Review of Systems Constitutional: weakness EENTM: no symptoms reported Respiratory: no symptoms reported Cardiovascular: no symptoms reported Gastrointestinal: constipation, other (Weight loss) Genitourinary: other (Foul-smelling urine, UTI) Physical Exam Vital Signs Vital Signs - First Documented 05/25/19 03:12 Temp 98.2 Pulse 102 Resp 18 B/P (MAP) 138/93 (108) Pulse Ox 95 O2 Delivery Room Air Capillary Refill : Less Than 3 Seconds Height, Weight, BMI Height: 6'0.00" Weight: 129lbs. 5.0oz. 58.893042az; 17.5 BMI Method:Estimated General Appearance: No Apparent Distress, Thin Eyes: Bilateral Eye Normal Inspection HEENT: Normal ENT Inspection Neck: Full Range of Motion, Normal Inspection Respiratory: Lungs Clear, No Accessory Muscle Use, No Respiratory Distress Cardiovascular: Regular Rate, Rhythm, No Murmur Gastrointestinal: Non Tender, Soft Assessment/Plan Assessment and Plan UTI. Urinary obstruction. Right middle lobe pneumonia. Dehydration. Renal insufficiency. Constipation. Dementia. Weight loss. Diabetes. Admission Diagnosis Admission Status: Inpatient Order (span 2 midnights) Reason for Inpatient Admission: Urinary retention. Pneumonia. Renal insufficiency. New-onset diabetes. Dementia Clinical Quality Measures DVT/VTE Risk/Contraindication: Risk Factor Score Per Nursin RFS Level Per Nursing on Admit: 4+=Very High JULIO HENSON DO May 25, 2019 07:53
--- NOTE | 2019-05-25 07:55 | NUR ---
DR. HENSON ON FLOOR TO SEE PT-THIS RN INFORMED HIM OF PT WEIGHT LOSS, PT HOME DIET-THIS RN RECEIVED ORDER TO HAVE SPEECH THERAPY DO A SWALLOW STUDY FOR POSSIBLE ASPIRATION R/T DIAGNOSIS OF PNEUMONIA
--- NOTE | 2019-05-25 07:57 | NUR ---
DR. XIONG NOTIFIED OF CONSULT BY CHUCK CHARLES
[2019-05-25] MEDS ORDERED: ENOXAPARIN 40 MG/0.4 ML (LOVENOX) SYR SC SCH (08:00)
[2019-05-25] MEDS: NS IV 1000 ML 1,000 ML IV SCH ×2 (10:30→21:11)
[2019-05-25] MEDS ORDERED: METF-397 PO (10:50)
[2019-05-25] MEDS ORDERED: DEXT33GE7 PO (10:50)
[2019-05-25] MEDS ORDERED: POTA20LI3 PO (10:50)
[2019-05-25] MEDS ORDERED: MIRT30TA6 PO (10:50)
[2019-05-25] MEDS ORDERED: POLY17PO6 PO ×2 (10:50→10:53)
[2019-05-25] MEDS ORDERED: MAGN400O7 PO (10:50)
[2019-05-25] MEDS ORDERED: PRAV20TA3 PO (10:50)
[2019-05-25] MEDS ORDERED: ZIPR40CA26 PO (10:50)
[2019-05-25] MEDS ORDERED: CLON0.5T13 PO ×2 (10:50)
[2019-05-25] MEDS ORDERED: ZIPR20CA24 PO (10:50)
[2019-05-25] MEDS ORDERED: BISA10SU58 RC (10:50)
[2019-05-25] MEDS ORDERED: BISA5TAB8 PO (10:50)
[2019-05-25] MEDS ORDERED: MULT-166 PO (10:50)
[2019-05-25] MEDS ORDERED: CALC1TAB94 PO (10:50)
--- NOTE | 2019-05-25 10:54 | NUR ---
UPDATED MED REC WITH ORDER SUMMARY REPORT FROM [facility].
[2019-05-25 11:07] VITALS: BP 135/85
--- NOTE | 2019-05-25 12:51 | CONSULTATION REPORT ---
DATE OF SERVICE: 05/25/2019 ATTENDING PHYSICIAN: Dr. Wagner. SUMMARY: Most information obtained from the medical record. The patient does not answer, does not look at me, does not want me to examine him either. Apparently, 68-year-old white man with dementia, behavioral disorders and other medical illnesses per history, was admitted, was found to have significant urinary tract infection with purulent urine and retention. Catheter was inserted with recovery of 500 mL, was clamped, not sure why and later another 700 mL. According to the medications, I do not see him on any Flomax or Urecholine. We will go ahead and start him on that. We will leave him on Rocephin, which is a good choice pending culture results. In about 3 days, we will start trial of voiding, so probably around Wednesday. Job ID: [id number] DocumentID: [id number] Dictated Date: 05/25/2019 12:19:53 Supervisor [employer] Date: 05/25/2019 12:51:18 Dictated By: MIMI XIONG MD MTDD
[2019-05-25 14:00] LABS: BILIRUBIN,URINE NEGATIVE (NEGATIVE); CLARITY,URINE SLIGHTLY CLOUDY; COLOR,URINE YELLOW; GLUCOSE, URINE (UA) 2+ (NEGATIVE); KETONES,URINE NEGATIVE (NEGATIVE); LEUKOCYTE ESTERASE ,URINE 3+ (NEGATIVE); NITRITE,URINE NEGATIVE (NEGATIVE); PH,URINE 5 (5-9); PROTEIN,URINE 2+ (NEGATIVE); UROBILINOGEN,URINE NORMAL (NORMAL)
--- NOTE | 2019-05-25 14:00 | NUR ---
DR HENSON NOTIFIED OF SMALL BM AFTER FLEETS ENEMA THIS AM. STATED DID NOT NEED TO CONTINUE TO GIVE FLEETS ENEMA UNTIL CLEAR JUST NEEDED FROM NOW ON.
[2019-05-25 14:16] LABS: BACTERIA,URINE LARGE /HPF; WBC,URINE >100 /HPF
--- NOTE | 2019-05-25 14:47 | ST Dysphagia Evaluation ---
Speech Evaluation-General Medical Diagnosis UTI, dementia with behavior Onset Date: May 25, 2019 Therapy Diagnosis Therapy Diagnosis: Oropharyngeal Dysphagia Precautions Precautions: Fall, Aspiration Precautions/Isolations: Aspiration, Fall Prevention, Standard Precautions Referral Referring Physician: Dr. Wagner Reason for Referral: Evaluation/Treatment Medical History Pertinent Medical History: Dementia, Fractures Dementia with behaviors, fractured hip, dysphagia Current History UTI Reviewed History: Yes Social History Home: Long-Term Current Living Status: Speech PLF/Current-Dysphagia Prior Level of Function The patient is a assisted resident with a history of dementia with behaviors. He has had dysphagia for an unknown length of time. Subjective The patient was pleasant and cooperative with the Bedside Dysphagia Evaluation. Cognitive Status Patient has advanced dementia with behaviors. Oral Motor Skills Dentition: Natural, Tumbled, Stained Ability to Follow Directions: Poor Oral Expression Ability: Severe Impairment Voice Voice Phonatory-Based Quality: Weak Voice Pitch: Moderately Low Voice Loudness: Moderately Soft/Quiet Face Facial Symmetry: Symmetrical Oral-Facial Assessment Oral-Facial Dentition: Normal Labial Seal Description: Reduced ROM, Weak Smile: Poor Coordination Lingual Protrusion: Normal Lingual ROM: Normal Lingual Strength: Normal Pharynx Velopharyngeal Move.: Volitional Dry Swallow: Yes Voluntary Cough: Yes Can Clear Throat Volitionally: Yes Productive Cough: No Productive Throat Clear: No Dysphagia Evaluation Consistencies Presented: Mechanical Soft, [place] Thick Liquid, Pureed Oral Phase: Reduced Oral Transit Patient has mild oral transit ability. Pharyngeal Phase: Decreased A/P Bolus Transit The patient clears upon swallow. Dietary Recommendations: Mechanical Soft Liquid Recommendations: [place] Consistancy Swallowing Precautions: Alternate Liquids/Solids, Decreased Bolus 1/2 Tsp, Liquids from Spoon, No Straw, Small Bites and Sips, Sitting Upright 90 Degrees, Sitting 90 Degrees 30 Post Intake Dysphagia Evaluation Summary The patient is a 68 year old male from the assisted who has a history of dementia with behaviors and dysphagia. The patient was administered the BDE with results indicating his current diet of nectar consistency liquids and mechanical soft (Dysphagia II) diet level is appropriate to continue. This information was provided to his nurse. Barriers to Learning Patient has advanced dementia. Speech-Plan Patient/Family Goals Patient/Family Goals: The patient will return to the assisted upon hospital discharge. Treatment Plan Speech Therapy Treatment Plan: Discontinue ST The patient will continue on the diet level he was admitted with. Treatment Duration: May 25, 2019 Frequency: 1 time per week Estimated Hrs Per Day: .25 hour per day Rehab Potential: Poor Barriers to Learning: Patient has advanced dementia with behaviors. Pt/Family Agrees to Plan: Yes Safety Risks/Education Teaching Recipient: Patient Teaching Methods: Discussion Response to Teaching: Verbalize Understanding Education Topics Provided: Diet level and verbal instructions for the BDE Time Speech Therapy Time In: 08:30 Speech Therapy Time Out: 08:45 Total Billed Time: 15 Billed Treatment Time [address] May 25, 2019 14:47
[2019-05-25 15:46] VITALS: BP 108/63
[2019-05-25] MEDS: TAMSULOSIN 0.4 MG (FLOMAX) CAP PO SCH (17:06)
[2019-05-25] MEDS ORDERED: MILK OF MAGNESIA 400 MG/5 ML 30 ML UDC PO PRN (18:45)
[2019-05-25] MEDS ORDERED: BISACODYL 5 MG (DULCOLAX) TABLET PO PRN (18:45)
[2019-05-25] MEDS ORDERED: BISACODYL 10 MG SUPP (DULCOLAX) RC PRN (18:45)
[2019-05-25] MEDS ORDERED: ACETAMINOPHEN 325 MG TABLET PO PRN (18:45)
--- NOTE | 2019-05-25 19:53 | NUR ---
THIS RN CALLED DR HENSON TO CLARIFY START DATE OF METFORMIN. ORDER RECEIVED TO PUT METFORMIN ON HOLD.
[2019-05-25 20:02] VITALS: BP 156/86
[2019-05-25] MEDS ORDERED: POLYETHYLENE GLYCOL 17 GM (MIRALAX) PACK PO PRN (21:00)
[2019-05-25] MEDS: SIMvastatin 10 MG (ZOCOR) TAB PO SCH (21:11)
[2019-05-25] MEDS: clonazePAM 1 MG (KlonoPIN) TAB PO SCH (21:11)
[2019-05-25] MEDS: MIRTAZAPINE 15 MG (REMERON) TAB PO SCH (21:12)
[2019-05-25] MEDS: ZIPRASIDONE 40 MG (GEODON) CAP PO SCH (21:12)
[2019-05-25 23:36] VITALS: BP 131/77
[2019-05-26 04:08] VITALS: BP 126/72
[2019-05-26] MEDS: CALCIUM CARB + VIT D 600 MG (CALCARB + D) TAB PO SCH ×2 (06:23→17:20)
[2019-05-26] MEDS: MULTIVIT W/MINERALS TAB (THERAGRAN M) PO SCH (06:23)
[2019-05-26] MEDS: cefTRIAXone 1,000 MG/SWFI 10 ML IV PUSH IV SCH ×2 (06:23)
[2019-05-26] MEDS: KCL 20 MEQ POWDER FOR ORAL SOLUTION PO SCH (06:24)
[2019-05-26] MEDS: VITAMIN D3 1,000 UNITS (CHOLECALCIFEROL) TABLET PO SCH (06:24)
[2019-05-26] MEDS: inSUlin ASPART (NovoLOG) 1 UNIT/0.01 ML (CHARGE PER UNIT) SC SCH ×4 (06:25→21:08)
[2019-05-26] MEDS: NS IV 1000 ML 1,000 ML IV SCH (06:25)
[2019-05-26 06:37] LABS: BASOPHILS % (AUTO) 0 % (0-10); EOSINOPHILS # (AUTO) 0.1 10^3/uL (0.0-0.3); EOSINOPHILS % (AUTO) 2 % (0-10); HEMATOCRIT 41 % (40-54); HEMOGLOBIN 13.1 G/DL (13.3-17.7); LYMPHOCYTES # (AUTO) 2.9 X 10^3 (1.0-4.0); LYMPHOCYTES % (AUTO) 34 % (12-44); MEAN CORPUSCULAR HEMOGLOBIN 28 PG (25-34); MEAN CORPUSCULAR HGB CONC 32 G/DL (32-36); MEAN CORPUSCULAR VOLUME 89 FL (80-99); MEAN PLATELET VOLUME 10.8 FL (7.4-10.4); MONOCYTES # (AUTO) 0.4 X 10^3 (0.0-1.0); MONOCYTES % (AUTO) 5 % (0-12); NEUTROPHILS % (AUTO) 59 % (42-75); PLATELET COUNT 172 10^3/uL (130-400); RED CELL DISTRIBUTION WIDTH 14.1 % (10.0-14.5); WHITE BLOOD COUNT 8.5 10^3/uL (4.3-11.0)
[2019-05-26] MEDS ORDERED: metFORMIN 500 MG (GLUCOPHAGE) TAB PO SCH (07:00)
[2019-05-26 07:14] LABS: ALANINE AMINOTRANSFERASE 25 U/L (0-55); ALKALINE PHOSPHATASE 88 U/L (40-136); BILIRUBIN,TOTAL 0.8 MG/DL (0.1-1.0); BUN/CREATININE RATIO 29; CALCIUM 8.7 MG/DL (8.5-10.1); CARBON DIOXIDE 20 MMOL/L (21-32); CHLORIDE 119 MMOL/L (98-107); CREATININE SERUM 0.86 MG/DL (0.60-1.30); GFR ESTIMATED > 60; GLUCOSE 180 MG/DL (70-105); POTASSIUM 3.5 MMOL/L (3.6-5.0); SODIUM 151 MMOL/L (135-145); TOTAL PROTEIN 6.4 GM/DL (6.4-8.2)
[2019-05-26 07:26] LABS: BAND NEUTROPHILS 0 %; BASOPHILS % (MANUAL) 1 %; EOSINOPHILS % (MANUAL) 1 %; LYMPHOCYTES % (MANUAL) 28 %; MONOCYTES % (MANUAL) 5 %; NEUTROPHILS % (MANUAL) 65 %; RBC MORPH NORMAL
[2019-05-26] MEDS ORDERED: KCL 10 MEQ TAB (MICRO K) PO NR (07:30)
[2019-05-26 07:32] VITALS: BP 129/80
--- NOTE | 2019-05-26 07:38 | Progress Note ---
Subjective Time Seen by a Provider: 07:35 Subjective/Events-last exam Patient resting comfortably this morning. Patient not answering. Patient gained over 6 pounds to decrease the IV GFR over 60 renal insufficiency resolved. Potassium 3.5. UTI. Urology will wait to Wednesday to remove the Murcia catheter. Pneumonia. Dementia with history of agitation Objective Exam Vital Signs Date Time Temp Pulse Resp B/P (MAP) Pulse Ox O2 Delivery O2 Flow Rate FiO2 05/26/19 04:08 97.8 89 18 126/72 (90) 97 Room Air 05/25/19 23:36 98.6 90 18 131/77 (95) 96 Room Air 05/25/19 20:02 97.8 93 24 156/86 (109) 97 Room Air 05/25/19 20:00 Room Air 05/25/19 15:46 97.7 86 22 108/63 (78) 96 Room Air 05/25/19 11:07 97.1 99 24 135/85 (102) 95 Room Air 05/25/19 08:30 96 Room Air I & O 05/26/19 07:00 Intake Total 2360 ml Output Total 870 ml Balance 1490 ml Capillary Refill : Less Than 3 Seconds General Appearance: No Apparent Distress, Thin HEENT: Normal ENT Inspection Neck: Normal Inspection Respiratory: No Accessory Muscle Use, No Respiratory Distress, Decreased Breath Sounds Cardiovascular: Regular Rate, Rhythm, No Murmur Gastrointestinal: non tender, soft Results Lab Laboratory Tests 05/25/19 11:12: Glucometer 278H 05/25/19 12:31: Urine Color YELLOW, Urine Clarity SLIGHTLY CLOUDY, Urine pH 5, Urine Specific [place] 1.015L, Urine Protein 2+H, Urine Glucose (UA) 2+H, Urine Ketones NEGATIVE, Urine Nitrite NEGATIVE, Urine Bilirubin NEGATIVE, Urine Urobilinogen NORMAL, Urine Leukocyte Esterase 3+H, Urine RBC (Auto) 2+H, Urine RBC 5-10H, Urine WBC >100H, Urine Squamous Epithelial Cells 2-5, Urine Crystals NONE, Urine Bacteria LARGEH, Urine Casts NONE, Urine Mucus NEGATIVE, Urine Culture Indicated YES 05/25/19 16:40: Glucometer 205H 05/25/19 20:04: Glucometer 169H 05/26/19 05:44: Glucometer 170H 05/26/19 05:45: White Blood Count 8.5, Red Blood Count 4.63, Hemoglobin 13.1L, Hematocrit 41, Mean Corpuscular Volume 89, Mean Corpuscular Hemoglobin 28, Mean Corpuscular Hemoglobin Concent 32, Red Cell Distribution Width 14.1, Platelet Count 172, Mean Platelet Volume 10.8H, Neutrophils (%) (Auto) 59, Lymphocytes (%) (Auto) 34, Monocytes (%) (Auto) 5, Eosinophils (%) (Auto) 2, Basophils (%) (Auto) 0, Neutrophils # (Auto) 5.0, Lymphocytes # (Auto) 2.9, Monocytes # (Auto) 0.4, Eosinophils # (Auto) 0.1, Basophils # (Auto) 0.0, Neutrophils % (Manual) 65, Lymphocytes % (Manual) 28, Monocytes % (Manual) 5, Eosinophils % (Manual) 1, Basophils % (Manual) 1, Band Neutrophils 0, Blood Morphology Comment NORMAL, Sodium Level 151H, Potassium Level 3.5L, Chloride Level 119H, Carbon Dioxide Level 20L, Anion Gap 12, Blood Urea Nitrogen 25H, Creatinine 0.86, Estimat Glomerular Filtration Rate > 60, BUN/Creatinine Ratio 29, Glucose Level 180H, Calcium Level 8.7, Corrected Calcium 9.5, Total Bilirubin 0.8, Aspartate Amino Transf (AST/SGOT) 22, Alanine Aminotransferase (ALT/SGPT) 25, Alkaline Phosphatase 88, Total Protein 6.4, Albumin 3.0L Assessment/Plan Assessment/Plan Assess & Plan/Chief Complaint UTI. Urinary retention. Dehydration. Renal insufficiency. Dementia with history of agitation Clinical Quality Measures Admission Status Admission Dx UTI. Urinary obstruction. Right middle lobe pneumonia. Dehydration. Renal insufficiency. Constipation. Dementia. Weight loss. Diabetes. DVT/VTE Risk/Contraindication: Risk Factor Score Per Nursin RFS Level Per Nursing on Admit: 4+=Very High MIGUEL HENSON DO May 26, 2019 07:37
[2019-05-26] MEDS: clonazePAM 0.5 MG (KlonoPIN) TAB PO SCH (08:18)
[2019-05-26] MEDS: ASPIRIN 325 MG (5 GR) TABLET PO SCH (08:18)
[2019-05-26] MEDS: ZIPRASIDONE 20 MG (GEODON) CAP PO SCH (08:19)
[2019-05-26] MEDS: POLYETHYLENE GLYCOL 17 GM (MIRALAX) PACK PO SCH (08:19)
[2019-05-26] MEDS: SENNA W/DOCUSATE (SENOKOT S) TABLET PO SCH (08:19)
--- NOTE | 2019-05-26 08:59 | Diagnostic Imaging Report ---
EXAMINATION: Chest one view. INDICATION: Pneumonia. COMPARISON: 05/25/2019. FINDINGS: Right base airspace opacity has improved. No pleural effusion or pneumothorax. No edema. Heart size is normal. IMPRESSION: 1. Improvement of the right base airspace opacity. Dictated by: Dictated on workstation # [id number]
[2019-05-26] MEDS: 1/2 NS IV SOLUTION 1,000 ML IV SCH ×2 (09:00→21:51)
--- NOTE | 2019-05-26 09:38 | Progress Note - Urology ---
Progress Note-Urology Progress Notes/Assess & Plan Progress/Assessment & Plan TOLERATES FLOMAX WELL. TOV ON WEDNESDAY Final Diagnosis RETENTION MIMI XIONG MD May 26, 2019 09:38
--- NOTE | 2019-05-26 09:42 | NUR ---
Initial visit; the pt engaged with simple, focused responses. As his PREPRESS MANAGER prepared his breakfast by cutting up his food for intake, the RN told me she was getting thickener so the pt could have water. The patient was repeatedly asking for water and demonstrating frustration, so I stood at his bedside, held his hand and explained what was happening, validated his frustrations, and redirected conversation momentarily. The Pt returned to asking for water, and I compassionately responded with the same care and attention to his verbalized needs. He demonstrated increased calmness during this encounter.
[2019-05-26 11:14] VITALS: BP 113/71
[2019-05-26] MEDS: ENOXAPARIN 30 MG/0.3 ML (LOVENOX) SYR SC SCH (11:28)
--- NOTE | 2019-05-26 14:44 | NUR ---
CM/SS. Patient has established placement with [facility] since June 2013. His son, Carrington Peters, is POA for healthcare although he resides in [place], [place]. PH: [phone] Patient is nonverbal, nonambulatory, with dementia with behavioral disturbance. DNR/DNI. He was under intermediate care prior to hospitalization, status for return to [facility] to be determined. Possible skilled care if patient can participate meaningfully. Will continue to follow patient progress.
[2019-05-26 16:00] VITALS: BP 130/80
[2019-05-26] MEDS: TAMSULOSIN 0.4 MG (FLOMAX) CAP PO SCH (17:20)
[2019-05-26 20:00] VITALS: BP 128/76
[2019-05-26] MEDS: MIRTAZAPINE 15 MG (REMERON) TAB PO SCH (21:45)
[2019-05-26] MEDS: clonazePAM 1 MG (KlonoPIN) TAB PO SCH (21:45)
[2019-05-26] MEDS: SIMvastatin 10 MG (ZOCOR) TAB PO SCH (21:46)
[2019-05-26] MEDS: ZIPRASIDONE 40 MG (GEODON) CAP PO SCH (21:46)
[2019-05-26 23:41] VITALS: BP 119/75
[2019-05-27 04:15] VITALS: BP 126/97
[2019-05-27] MEDS: inSUlin ASPART (NovoLOG) 1 UNIT/0.01 ML (CHARGE PER UNIT) SC SCH ×4 (05:41→20:43)
[2019-05-27] MEDS: cefTRIAXone 1,000 MG/SWFI 10 ML IV PUSH IV SCH ×2 (05:41)
[2019-05-27 05:46] LABS: HEMOGLOBIN 14.5 G/DL (13.3-17.7); MEAN PLATELET VOLUME 10.6 FL (7.4-10.4); WHITE BLOOD COUNT 7.1 10^3/uL (4.3-11.0)
[2019-05-27 06:01] LABS: BUN/CREATININE RATIO 13; CALCIUM 9.1 MG/DL (8.5-10.1); CARBON DIOXIDE 17 MMOL/L (21-32); CHLORIDE 115 MMOL/L (98-107); CREATININE SERUM 0.84 MG/DL (0.60-1.30); GFR ESTIMATED > 60; GLUCOSE 135 MG/DL (70-105); POTASSIUM 4.3 MMOL/L (3.6-5.0); SODIUM 145 MMOL/L (135-145)
[2019-05-27] MEDS: VITAMIN D3 1,000 UNITS (CHOLECALCIFEROL) TABLET PO SCH (06:48)
[2019-05-27] MEDS: KCL 20 MEQ POWDER FOR ORAL SOLUTION PO SCH (06:48)
[2019-05-27] MEDS: CALCIUM CARB + VIT D 600 MG (CALCARB + D) TAB PO SCH ×2 (06:48→18:20)
[2019-05-27] MEDS: MULTIVIT W/MINERALS TAB (THERAGRAN M) PO SCH (06:48)
[2019-05-27 08:00] VITALS: BP 143/81
--- NOTE | 2019-05-27 08:53 | Diagnostic Imaging Report ---
EXAMINATION: Chest radiograph, portable AP view. DATE: May 27, 2019 at 0431 hours. INDICATION: 68-year-old male, shortness of breath. Evaluation for pneumonia. COMPARISON: May 26, 2019. FINDINGS: Stable overall appearance of the cardiomediastinal silhouette. There is no identified pneumothorax. There is no large pleural effusion. There is mild reticular nodularity in the right mid and lower lung zones. The left lung appears grossly clear. There is abnormal alignment of the right acromioclavicular joint which is unchanged. IMPRESSION: 1. Mild reticular nodularity in the right lung which could be infectious or inflammatory in etiology. 2. No interval focal airspace consolidation. Dictated by: Dictated on workstation # [id number]
[2019-05-27] MEDS: ASPIRIN 325 MG (5 GR) TABLET PO SCH (09:12)
[2019-05-27] MEDS: SENNA W/DOCUSATE (SENOKOT S) TABLET PO SCH (09:12)
[2019-05-27] MEDS: clonazePAM 0.5 MG (KlonoPIN) TAB PO SCH (09:12)
[2019-05-27] MEDS: ZIPRASIDONE 20 MG (GEODON) CAP PO SCH (09:12)
[2019-05-27] MEDS: POLYETHYLENE GLYCOL 17 GM (MIRALAX) PACK PO SCH (09:12)
[2019-05-27 11:37] VITALS: BP 103/68
[2019-05-27] MEDS: ENOXAPARIN 30 MG/0.3 ML (LOVENOX) SYR SC SCH (12:23)
--- NOTE | 2019-05-27 12:54 | Progress Note - Hospitalist ---
Subjective HPI/CC On Admission Date Seen by Provider: May 27, 2019 Time Seen by Provider: 12:00 Subjective/Events-last exam Patient about the same Nurse has no concerns Severe dementia Poor prognosis Murcia catheter maintained Review of Systems General: Fatigue Neurological: Confusion Objective Exam Vital Signs Vital Signs Date Time Temp Pulse Resp B/P (MAP) Pulse Ox O2 Delivery O2 Flow Rate FiO2 05/27/19 11:37 98.8 88 20 103/68 (80) 96 Room Air Capillary Refill : Less Than 3 Seconds General Appearance: No Apparent Distress, Chronically ill, Thin, Other (Sleepin g) HEENT: Normal ENT Inspection Neck: Normal Inspection Respiratory: No Accessory Muscle Use, No Respiratory Distress, Decreased Breath Sounds Cardiovascular: Regular Rate, Rhythm, No Murmur Gastrointestinal: Non Tender, Soft Extremity: No Pedal Edema, Other (APPEARS TO HAVE SOME FLEXION CONTRACTURES OF LEFT ARM AND HAND) Neurologic/Psychiatric: Alert (AWAKE WITH BLANK STARE STRAIGHT AHEAD. ), Other (MOVES ALL EXTREMITIES, AND WITHDRAWS ARMS ON ATTEMPT TO START IV OR OBTAIN BP READING. ) Skin: Normal Color, Warm/Dry, Other (POOR TURGOR; MEDIAL ASPECT OF LEFT HEEL WITH DUSKINESS AND TEXTURE OF DEFLATED BULLA. NO SKIN BREAKDOWN NOTED ON SACRAL/COCCYX/BUTTOCKS AREA. ) Results/Procedures Lab Laboratory Tests 05/27/19 05:40 Patient resulted labs reviewed. Assessment/Plan Assessment and Plan Assess & Plan/Chief Complaint Assessment per PCP: UTI. Urinary obstruction. Right middle lobe pneumonia. Dehydration. Renal insufficiency. Constipation. Dementia. Weight loss. Diabetes. Plan: Continue treatment Poor prognosis DO NOT RESUSCITATE Diagnosis/Problems Diagnosis/Problems (1) UTI (urinary tract infection) Status: Acute Qualifiers: Urinary tract infection type: acute cystitis Hematuria presence: with hematuria Qualified Codes: N30.01 - Acute cystitis with hematuria (2) Urinary retention Status: Acute (3) Dehydration Status: Acute (4) Uncontrolled diabetes mellitus Status: Chronic Qualifiers: Diabetes mellitus type: type 2 Glycemic state: with hyperglycemia Qualified Codes: E11.65 - Type 2 diabetes mellitus with hyperglycemia (5) Decreased level of consciousness Status: Acute Clinical Quality Measures DVT/VTE Risk/Contraindication: Risk Factor Score Per Nursin RFS Level Per Nursing on Admit: 4+=Very High CHER LEIGH DO May 27, 2019 12:54
[2019-05-27 16:04] VITALS: BP 132/80
[2019-05-27] MEDS: TAMSULOSIN 0.4 MG (FLOMAX) CAP PO SCH (18:20)
[2019-05-27] MEDS: 1/2 NS IV SOLUTION 1,000 ML IV SCH (18:39)
[2019-05-27] MEDS: MIRTAZAPINE 15 MG (REMERON) TAB PO SCH (20:40)
[2019-05-27] MEDS: SIMvastatin 10 MG (ZOCOR) TAB PO SCH (20:40)
[2019-05-27] MEDS: clonazePAM 1 MG (KlonoPIN) TAB PO SCH (20:40)
[2019-05-27] MEDS: ZIPRASIDONE 40 MG (GEODON) CAP PO SCH (20:43)
[2019-05-28 00:11] VITALS: BP 142/98
--- NOTE | 2019-05-28 00:16 | NUR ---
PT HEART RATE IN 140'S. OTHER VITAL SIGNS NORMAL. DR LEIGH NOTIFIED. MONITOR PT AND IF ANYTHING WORSEN CONSULT DR MARIN
[2019-05-28] MEDS: cefTRIAXone 1,000 MG/SWFI 10 ML IV PUSH IV SCH ×2 (05:08)
[2019-05-28] MEDS: KCL 20 MEQ POWDER FOR ORAL SOLUTION PO SCH (06:25)
[2019-05-28] MEDS: MULTIVIT W/MINERALS TAB (THERAGRAN M) PO SCH (06:25)
[2019-05-28] MEDS: inSUlin ASPART (NovoLOG) 1 UNIT/0.01 ML (CHARGE PER UNIT) SC SCH ×4 (06:25→21:52)
[2019-05-28] MEDS: CALCIUM CARB + VIT D 600 MG (CALCARB + D) TAB PO SCH ×2 (06:25→17:30)
[2019-05-28] MEDS: VITAMIN D3 1,000 UNITS (CHOLECALCIFEROL) TABLET PO SCH (06:25)
[2019-05-28 08:00] VITALS: BP 124/78
[2019-05-28] MEDS: POLYETHYLENE GLYCOL 17 GM (MIRALAX) PACK PO SCH (09:00)
[2019-05-28] MEDS: ASPIRIN 325 MG (5 GR) TABLET PO SCH (09:00)
[2019-05-28] MEDS: ZIPRASIDONE 20 MG (GEODON) CAP PO SCH (09:00)
[2019-05-28] MEDS: clonazePAM 0.5 MG (KlonoPIN) TAB PO SCH (09:00)
[2019-05-28] MEDS: SENNA W/DOCUSATE (SENOKOT S) TABLET PO SCH (09:00)
[2019-05-28] MEDS: ENOXAPARIN 30 MG/0.3 ML (LOVENOX) SYR SC SCH (11:18)
--- NOTE | 2019-05-28 11:20 | Progress Note - Hospitalist ---
Subjective HPI/CC On Admission Date Seen by Provider: May 28, 2019 Time Seen by Provider: 10:30 Subjective/Events-last exam Patient had some tachycardia and varied heart rate last night but did not require cardiology consultation Patient is essentially comatose Sleeping when I am examining him today No falls or any other pain is reported Tele-sitter is maintained for patient safety Review of Systems Neurological: Confusion Objective Exam Vital Signs Vital Signs Date Time Temp Pulse Resp B/P (MAP) Pulse Ox O2 Delivery O2 Flow Rate FiO2 05/28/19 08:00 99.2 98 18 124/78 (93) 94 Room Air Capillary Refill : Less Than 3 Seconds General Appearance: No Apparent Distress, Chronically ill, Thin, Other (Sleeping) HEENT: Normal ENT Inspection Neck: Normal Inspection Respiratory: No Accessory Muscle Use, No Respiratory Distress, Decreased Breath Sounds Cardiovascular: Regular Rate, Rhythm, No Murmur Gastrointestinal: Non Tender, Soft Extremity: No Pedal Edema, Other (APPEARS TO HAVE SOME FLEXION CONTRACTURES OF LEFT ARM AND HAND) Neurologic/Psychiatric: Alert (AWAKE WITH BLANK STARE STRAIGHT AHEAD. ), Other (MOVES ALL EXTREMITIES, AND WITHDRAWS ARMS ON ATTEMPT TO START IV OR OBTAIN BP READING. ) Skin: Normal Color, Warm/Dry, Other (POOR TURGOR; MEDIAL ASPECT OF LEFT HEEL WI TH DUSKINESS AND TEXTURE OF DEFLATED BULLA. NO SKIN BREAKDOWN NOTED ON SACRAL/COCCYX/BUTTOCKS AREA. ) Results/Procedures Lab Patient resulted labs reviewed. Assessment/Plan Assessment and Plan Assess & Plan/Chief Complaint Assessment per PCP: UTI. Urinary obstruction. Right middle lobe pneumonia. Dehydration. Renal insufficiency. Constipation. Dementia. Weight loss. Diabetes. Tachycardia Plan: Continue treatment Poor prognosis DO NOT RESUSCITATE Diagnosis/Problems Diagnosis/Problems (1) UTI (urinary tract infection) Status: Acute Qualifiers: Urinary tract infection type: acute cystitis Hematuria presence: with hematuria Qualified Codes: N30.01 - Acute cystitis with hematuria (2) Urinary retention Status: Acute (3) Dehydration Status: Acute (4) Uncontrolled diabetes mellitus Status: Chronic Qualifiers: Diabetes mellitus type: type 2 Glycemic state: with hyperglycemia Qualified Codes: E11.65 - Type 2 diabetes mellitus with hyperglycemia (5) Decreased level of consciousness Status: Acute Clinical Quality Measures DVT/VTE Risk/Contraindication: Risk Factor Score Per Nursin RFS Level Per Nursing on Admit: 4+=Very High CHER LEIGH DO May 28, 2019 11:20
[2019-05-28 16:10] VITALS: BP 109/72
[2019-05-28] MEDS: TAMSULOSIN 0.4 MG (FLOMAX) CAP PO SCH (17:30)
[2019-05-28] MEDS: SIMvastatin 10 MG (ZOCOR) TAB PO SCH (20:34)
[2019-05-28] MEDS: 1/2 NS IV SOLUTION 1,000 ML IV SCH (20:34)
[2019-05-28] MEDS: ZIPRASIDONE 40 MG (GEODON) CAP PO SCH (20:34)
[2019-05-28] MEDS: MIRTAZAPINE 15 MG (REMERON) TAB PO SCH (20:34)
[2019-05-28] MEDS: clonazePAM 1 MG (KlonoPIN) TAB PO SCH (20:34)
[2019-05-29 00:29] VITALS: BP 115/79
[2019-05-29] MEDS: cefTRIAXone 1,000 MG/SWFI 10 ML IV PUSH IV SCH ×2 (05:00)
[2019-05-29 05:20] LABS: BASOPHILS % (AUTO) 0 % (0-10); EOSINOPHILS # (AUTO) 0.2 10^3/uL (0.0-0.3); EOSINOPHILS % (AUTO) 3 % (0-10); HEMATOCRIT 39 % (40-54); HEMOGLOBIN 13.2 G/DL (13.3-17.7); LYMPHOCYTES # (AUTO) 2.2 X 10^3 (1.0-4.0); LYMPHOCYTES % (AUTO) 33 % (12-44); MEAN CORPUSCULAR HEMOGLOBIN 29 PG (25-34); MEAN CORPUSCULAR HGB CONC 34 G/DL (32-36); MEAN CORPUSCULAR VOLUME 86 FL (80-99); MEAN PLATELET VOLUME 11.2 FL (7.4-10.4); MONOCYTES # (AUTO) 0.3 X 10^3 (0.0-1.0); MONOCYTES % (AUTO) 4 % (0-12); NEUTROPHILS % (AUTO) 60 % (42-75); PLATELET COUNT 166 10^3/uL (130-400); RED CELL DISTRIBUTION WIDTH 13.4 % (10.0-14.5); WHITE BLOOD COUNT 6.7 10^3/uL (4.3-11.0)
[2019-05-29 05:51] LABS: ALANINE AMINOTRANSFERASE 20 U/L (0-55); ALBUMIN 3.1 GM/DL (3.2-4.5); ALKALINE PHOSPHATASE 84 U/L (40-136); BILIRUBIN,TOTAL 0.6 MG/DL (0.1-1.0); BUN/CREATININE RATIO 8; CALCIUM 9.1 MG/DL (8.5-10.1); CARBON DIOXIDE 23 MMOL/L (21-32); CHLORIDE 108 MMOL/L (98-107); CREATININE SERUM 0.86 MG/DL (0.60-1.30); GFR ESTIMATED > 60; GLUCOSE 145 MG/DL (70-105); POTASSIUM 3.6 MMOL/L (3.6-5.0); SODIUM 143 MMOL/L (135-145); TOTAL PROTEIN 6.6 GM/DL (6.4-8.2)
[2019-05-29] MEDS: KCL 20 MEQ POWDER FOR ORAL SOLUTION PO SCH (06:28)
[2019-05-29] MEDS: CALCIUM CARB + VIT D 600 MG (CALCARB + D) TAB PO SCH ×2 (06:28→16:51)
[2019-05-29] MEDS: VITAMIN D3 1,000 UNITS (CHOLECALCIFEROL) TABLET PO SCH (06:28)
[2019-05-29] MEDS: MULTIVIT W/MINERALS TAB (THERAGRAN M) PO SCH (06:28)
[2019-05-29] MEDS: inSUlin ASPART (NovoLOG) 1 UNIT/0.01 ML (CHARGE PER UNIT) SC SCH ×4 (06:28→21:19)
--- NOTE | 2019-05-29 07:47 | Progress Note ---
Subjective Time Seen by a Provider: 07:42 Subjective/Events-last exam Patient resting comfortably today. Patient awake. Patient talking. Urology to address urinary retention today Objective Exam Vital Signs Date Time Temp Pulse Resp B/P (MAP) Pulse Ox O2 Delivery O2 Flow Rate FiO2 05/29/19 00:29 98.7 99 18 115/79 (91) 95 Room Air 05/28/19 20:00 Room Air 05/28/19 16:10 98.1 71 20 109/72 (84) 96 Room Air 05/28/19 08:00 99.2 98 18 124/78 (93) 94 Room Air 05/28/19 08:00 Room Air I & O 05/29/19 07:00 Intake Total 960 ml Output Total 1375 ml Balance -415 ml Capillary Refill : Less Than 3 Seconds General Appearance: No Apparent Distress, Thin HEENT: Normal ENT Inspection Neck: Normal Inspection Respiratory: Lungs Clear, No Accessory Muscle Use, No Respiratory Distress Cardiovascular: Regular Rate, Rhythm, No Murmur Gastrointestinal: non tender, soft Results Lab Laboratory Tests 05/29/19 04:26 Laboratory Tests 05/28/19 11:25: Glucometer 193H 05/28/19 16:18: Glucometer 151H 05/28/19 21:01: Glucometer 216H 05/29/19 04:26: White Blood Count 6.7, Red Blood Count 4.57, Hemoglobin 13.2L, Hematocrit 39L, Mean Corpuscular Volume 86, Mean Corpuscular Hemoglobin 29, Mean Corpuscular Hemoglobin Concent 34, Red Cell Distribution Width 13.4, Platelet Count 166, Mean Platelet Volume 11.2H, Neutrophils (%) (Auto) 60, Lymphocytes (%) (Auto) 33, Monocytes (%) (Auto) 4, Eosinophils (%) (Auto) 3, Basophils (%) (Auto) 0, Neutrophils # (Auto) 4.0, Lymphocytes # (Auto) 2.2, Monocytes # (Auto) 0.3, Eosinophils # (Auto) 0.2, Basophils # (Auto) 0.0, Sodium Level 143, Potassium Level 3.6, Chloride Level 108H, Carbon Dioxide Level 23, Anion Gap 12, Blood Urea Nitrogen 7, Creatinine 0.86, Estimat Glomerular Filtration Rate > 60, BUN/Creatinine Ratio 8, Glucose Level 145H, Calcium Level 9.1, Corrected Calcium 9.8, Total Bilirubin 0.6, Aspartate Amino Transf (AST/SGOT) 22, Alanine Aminotransferase (ALT/SGPT) 20, Alkaline Phosphatase 84, Total Protein 6.6, Albumin 3.1L Microbiology 05/25/19 Urine Culture - Final, Complete NO GROWTH Assessment/Plan Assessment/Plan Assess & Plan/Chief Complaint UTI. Urinary retention. Dehydration. Renal insufficiency. Dementia with history of agitation. . 05/29/19. UTI Klebsiella sensitive to Rocephin. Urinary retention. Dehydration. Dementia. Dehydration.. Right middle lobe pneumonia Clinical Quality Measures Admission Status Admission Dx UTI. Urinary obstruction. Right middle lobe pneumonia. Dehydration. Renal insufficiency. Constipation. Dementia. Weight loss. Diabetes. DVT/VTE Risk/Contraindication: Risk Factor Score Per Nursin RFS Level Per Nursing on Admit: 4+=Very High MIGUEL HENSON DO May 29, 2019 07:47
[2019-05-29 07:53] VITALS: BP 143/76
[2019-05-29] MEDS: clonazePAM 0.5 MG (KlonoPIN) TAB PO SCH (08:31)
[2019-05-29] MEDS: ASPIRIN 325 MG (5 GR) TABLET PO SCH (08:31)
[2019-05-29] MEDS: SENNA W/DOCUSATE (SENOKOT S) TABLET PO SCH (08:31)
[2019-05-29] MEDS: ZIPRASIDONE 20 MG (GEODON) CAP PO SCH (08:32)
[2019-05-29] MEDS: POLYETHYLENE GLYCOL 17 GM (MIRALAX) PACK PO SCH (08:32)
--- NOTE | 2019-05-29 10:13 | Progress Note - Urology ---
Progress Note-Urology Progress Notes/Assess & Plan Progress/Assessment & Plan TOV TODAY Final Diagnosis URINE RETENTION MIMI XIONG MD May 29, 2019 10:13
[2019-05-29 10:18] LABS: BILIRUBIN,URINE NEGATIVE (NEGATIVE); CLARITY,URINE CLEAR; COLOR,URINE YELLOW; GLUCOSE, URINE (UA) NEGATIVE (NEGATIVE); KETONES,URINE 3+ (NEGATIVE); LEUKOCYTE ESTERASE ,URINE 1+ (NEGATIVE); NITRITE,URINE NEGATIVE (NEGATIVE); PH,URINE 7 (5-9); PROTEIN,URINE 1+ (NEGATIVE); UROBILINOGEN,URINE NORMAL (NORMAL)
[2019-05-29 10:31] LABS: BACTERIA,URINE TRACE /HPF; SQUAMOUS EPITHELIAL CELL,UR RARE /HPF
[2019-05-29] MEDS: ENOXAPARIN 30 MG/0.3 ML (LOVENOX) SYR SC SCH (10:45)
[2019-05-29] MEDS: 1/2 NS IV SOLUTION 1,000 ML IV SCH (14:00)
--- NOTE | 2019-05-29 14:53 | NUR ---
Patient's catheter was dc'd at 1030. At 1400 patient had not voided. Bladder scan showed 430 mL. Orders to straight cath if over 350. Removed 300mL of urine with straight cath. Dr. Wagner notified of this and said to continue to monitor and straight cath if over 350mL.
[2019-05-29 16:10] VITALS: BP 131/83
[2019-05-29] MEDS: TAMSULOSIN 0.4 MG (FLOMAX) CAP PO SCH (16:51)
[2019-05-29] MEDS: MIRTAZAPINE 15 MG (REMERON) TAB PO SCH (22:24)
[2019-05-29] MEDS: SIMvastatin 10 MG (ZOCOR) TAB PO SCH (22:24)
[2019-05-29] MEDS: clonazePAM 1 MG (KlonoPIN) TAB PO SCH (22:24)
[2019-05-29] MEDS: ZIPRASIDONE 40 MG (GEODON) CAP PO SCH (22:24)
[2019-05-30 00:56] VITALS: BP 127/83
[2019-05-30] MEDS: 1/2 NS IV SOLUTION 1,000 ML IV SCH (03:49)
[2019-05-30] MEDS: inSUlin ASPART (NovoLOG) 1 UNIT/0.01 ML (CHARGE PER UNIT) SC SCH ×4 (05:27→21:26)
[2019-05-30] MEDS: CALCIUM CARB + VIT D 600 MG (CALCARB + D) TAB PO SCH ×2 (05:38→16:35)
[2019-05-30] MEDS: cefTRIAXone 1,000 MG/SWFI 10 ML IV PUSH IV SCH ×2 (05:38)
[2019-05-30] MEDS: MULTIVIT W/MINERALS TAB (THERAGRAN M) PO SCH (05:38)
[2019-05-30] MEDS: VITAMIN D3 1,000 UNITS (CHOLECALCIFEROL) TABLET PO SCH (05:38)
[2019-05-30] MEDS: KCL 20 MEQ POWDER FOR ORAL SOLUTION PO SCH (05:39)
--- NOTE | 2019-05-30 06:30 | NUR ---
bladder scan due to no voiding for last shift. bladder scan greater than 800. pt refusing to attempt to pee. .when return with supplies. small damp spot on diaper and straight cath return of 525
--- NOTE | 2019-05-30 07:46 | Progress Note ---
Subjective Time Seen by a Provider: 07:43 Subjective/Events-last exam Resting comfortably. patient has urinary retention.. Waiting to see what urologist wants to do Increase Flomax 0.8 mg Objective Exam Vital Signs Date Time Temp Pulse Resp B/P (MAP) Pulse Ox O2 Delivery O2 Flow Rate FiO2 05/30/19 00:56 98.1 87 20 127/83 (98) 95 Room Air 05/29/19 20:20 95 Room Air 05/29/19 16:10 97.0 83 22 131/83 (99) 97 Room Air 05/29/19 08:00 Room Air 05/29/19 07:53 98.1 92 18 143/76 (98) 95 Room Air I & O 05/30/19 07:00 Intake Total 50 ml Output Total 900 ml Balance -850 ml Capillary Refill : Less Than 3 Seconds General Appearance: No Apparent Distress, WD/WN HEENT: Normal ENT Inspection Neck: Normal Inspection Respiratory: No Accessory Muscle Use, No Respiratory Distress Cardiovascular: Regular Rate, Rhythm, No Murmur Gastrointestinal: non tender, soft Results Lab Laboratory Tests 05/29/19 10:10: Urine Color YELLOW, Urine Clarity CLEAR, Urine pH 7, Urine Specific [place] 1.010L, Urine Protein 1+H, Urine Glucose (UA) NEGATIVE, Urine Ketones 3+H, Urine Nitrite NEGATIVE, Urine Bilirubin NEGATIVE, Urine Urobilinogen NORMAL, Urine Leukocyte Esterase 1+H, Urine RBC (Auto) 1+H, Urine RBC 2-5H, Urine WBC 2-5, Urine Squamous Epithelial Cells RARE, Urine Crystals NONE, Urine Bacteria TRACE, Urine Casts NONE, Urine Mucus SMALLH, Urine Culture Indicated NO 05/29/19 10:54: Glucometer 250H 05/29/19 16:06: Glucometer 148H 05/29/19 20:50: Glucometer 167H 05/30/19 05:26: Glucometer 190H Microbiology 05/25/19 Urine Culture - Final, Complete NO GROWTH Assessment/Plan Assessment/Plan Assess & Plan/Chief Complaint UTI. Urinary retention. Dehydration. Renal insufficiency. Dementia with history of agitation. . 05/29/19. UTI Klebsiella sensitive to Rocephin. Urinary retention. Dehydration. Dementia. Dehydration.. Right middle lobe pneumonia. . 05/30/19. UTI resolved from Klebsiella Urinary retention still has. Dehydration resolved. Dementia. Right middle lobe pneumonia resolved. Clinical Quality Measures Admission Status Admission Dx UTI. Urinary obstruction. Right middle lobe pneumonia. Dehydration. Renal insufficiency. Constipation. Dementia. Weight loss. Diabetes. DVT/VTE Risk/Contraindication: Risk Factor Score Per Nursin RFS Level Per Nursing on Admit: 4+=Very High MIGUEL HENSON DO May 30, 2019 07:46
[2019-05-30 07:49] VITALS: BP 115/78
[2019-05-30] MEDS ORDERED: LIDOCAINE UROJET 2% GEL 10 ML PKG TOP ONE (08:45)
[2019-05-30] MEDS: ZIPRASIDONE 20 MG (GEODON) CAP PO SCH (08:47)
[2019-05-30] MEDS: ASPIRIN 325 MG (5 GR) TABLET PO SCH (08:47)
[2019-05-30] MEDS: SENNA W/DOCUSATE (SENOKOT S) TABLET PO SCH (08:47)
[2019-05-30] MEDS: POLYETHYLENE GLYCOL 17 GM (MIRALAX) PACK PO SCH (08:47)
[2019-05-30] MEDS: clonazePAM 0.5 MG (KlonoPIN) TAB PO SCH (08:48)
[2019-05-30] MEDS: TAMSULOSIN 0.4 MG (FLOMAX) CAP PO SCH ×2 (08:51→21:01)
[2019-05-30] MEDS: ENOXAPARIN 30 MG/0.3 ML (LOVENOX) SYR SC SCH (10:13)
--- NOTE | 2019-05-30 11:07 | Progress Note - Urology ---
Progress Note-Urology Progress Notes/Assess & Plan Progress/Assessment & Plan STILL RTENTION. PLAN INCREASE FLOMAX TO BID. ALSO CYSTOSCOPY AT BED SIDE. TRIED TO TALK TO PATIENT BUT WAS SOUND SLEEPING AND DID NOT ANSWER ME. WE WILL TRY LATER ON OR TOMORROW Final Diagnosis URINE RETENTION MIMI XIONG MD May 30, 2019 11:07
[2019-05-30 15:44] VITALS: BP 136/85
[2019-05-30] MEDS: MIRTAZAPINE 15 MG (REMERON) TAB PO SCH (21:01)
[2019-05-30] MEDS: clonazePAM 1 MG (KlonoPIN) TAB PO SCH (21:01)
[2019-05-30] MEDS: SIMvastatin 10 MG (ZOCOR) TAB PO SCH (21:01)
[2019-05-30] MEDS: ZIPRASIDONE 40 MG (GEODON) CAP PO SCH (21:02)
[2019-05-31] VITALS: BP 127/83
[2019-05-31] MEDS: 1/2 NS IV SOLUTION 1,000 ML IV SCH (00:04)
[2019-05-31] MEDS: cefTRIAXone 1,000 MG/SWFI 10 ML IV PUSH IV SCH ×2 (05:09)
[2019-05-31] MEDS: inSUlin ASPART (NovoLOG) 1 UNIT/0.01 ML (CHARGE PER UNIT) SC SCH ×4 (05:30→21:30)
[2019-05-31] MEDS: CALCIUM CARB + VIT D 600 MG (CALCARB + D) TAB PO SCH ×2 (06:35→17:36)
[2019-05-31] MEDS: MULTIVIT W/MINERALS TAB (THERAGRAN M) PO SCH (06:36)
[2019-05-31] MEDS: KCL 20 MEQ POWDER FOR ORAL SOLUTION PO SCH (06:36)
[2019-05-31] MEDS: VITAMIN D3 1,000 UNITS (CHOLECALCIFEROL) TABLET PO SCH (06:36)
--- NOTE | 2019-05-31 07:22 | Progress Note ---
Subjective Time Seen by a Provider: 07:21 Subjective/Events-last exam Patient still has urinary retention. Patient resting comfortably today Objective Exam Vital Signs Date Time Temp Pulse Resp B/P (MAP) Pulse Ox O2 Delivery O2 Flow Rate FiO2 05/31/19 00:00 98.5 89 20 127/83 (98) 95 Room Air 05/30/19 20:00 Room Air 05/30/19 15:44 97.4 84 18 136/85 (102) 99 Room Air 05/30/19 08:00 Room Air 05/30/19 07:49 97.9 83 22 115/78 (90) 96 Room Air I & O 05/31/19 07:00 Intake Total 1420 ml Output Total 3925 ml Balance -2505 ml Capillary Refill : Less Than 3 Seconds General Appearance: No Apparent Distress, WD/WN HEENT: Normal ENT Inspection Neck: Full Range of Motion, Normal Inspection Respiratory: Lungs Clear, Normal Breath Sounds, No Accessory Muscle Use, No Respiratory Distress Cardiovascular: Regular Rate, Rhythm, No Murmur Gastrointestinal: non tender, soft Results Lab Laboratory Tests 05/30/19 10:52: Glucometer 225H 05/30/19 15:48: Glucometer 98 05/30/19 20:25: Glucometer 139H 05/31/19 05:23: Glucometer 131H Microbiology 05/25/19 Urine Culture - Final, Complete NO GROWTH Assessment/Plan Assessment/Plan Assess & Plan/Chief Complaint UTI. Urinary retention. Dehydration. Renal insufficiency. Dementia with history of agitation. . 05/29/19. UTI Klebsiella sensitive to Rocephin. Urinary retention. Dehydration. Dementia. Dehydration.. Right middle lobe pneumonia. . 05/30/19. UTI resolved from Klebsiella Urinary retention still has. Dehydration resolved. Dementia. Right middle lobe pneumonia resolved. . 05/31/19. Urinary retention. UTI resolved. Dehydration. Dementia. Right middle lobe pneumonia. Patient had cystoscopy. Clinical Quality Measures Admission Status Admission Dx UTI. Urinary obstruction. Right middle lobe pneumonia. Dehydration. Renal insufficiency. Constipation. Dementia. Weight loss. Diabetes. DVT/VTE Risk/Contraindication: Risk Factor Score Per Nursin RFS Level Per Nursing on Admit: 4+=Very High MIGUEL HENSON DO May 31, 2019 07:22
[2019-05-31 08:00] VITALS: BP 130/73
[2019-05-31] MEDS: POLYETHYLENE GLYCOL 17 GM (MIRALAX) PACK PO SCH (09:13)
[2019-05-31] MEDS: ASPIRIN 325 MG (5 GR) TABLET PO SCH (09:13)
[2019-05-31] MEDS: ZIPRASIDONE 20 MG (GEODON) CAP PO SCH (09:13)
[2019-05-31] MEDS: SENNA W/DOCUSATE (SENOKOT S) TABLET PO SCH (09:13)
[2019-05-31] MEDS: clonazePAM 0.5 MG (KlonoPIN) TAB PO SCH (09:13)
[2019-05-31] MEDS: TAMSULOSIN 0.4 MG (FLOMAX) CAP PO SCH ×2 (09:14→21:08)
[2019-05-31] MEDS: ENOXAPARIN 30 MG/0.3 ML (LOVENOX) SYR SC SCH (10:37)
--- NOTE | 2019-05-31 10:54 | Progress Note - Urology ---
Progress Note-Urology Progress Notes/Assess & Plan Progress/Assessment & Plan RUBY DRAINING WELL, CLEAR URINE. I TOLD THE PATIENT AND EXPLAINED TO HIM THE NEED FOR FLEXIBLE CYSTOSCOPY AT BEDSIDE UNDER LOCAL. HE LITERALLY REFUSED, WOULD NOT LISTEN TO REASON, AND WAS VERY ABUSIVE. I DISMISSED HIM FROM MY SERVICE FOR GOOD. Final Diagnosis URINE RETENTION MIMI XIONG MD May 31, 2019 10:54
[2019-05-31 16:08] VITALS: BP 109/68
[2019-05-31] MEDS: ZIPRASIDONE 40 MG (GEODON) CAP PO SCH (21:08)
[2019-05-31] MEDS: clonazePAM 1 MG (KlonoPIN) TAB PO SCH (21:08)
[2019-05-31] MEDS: MIRTAZAPINE 15 MG (REMERON) TAB PO SCH (21:08)
[2019-05-31] MEDS: SIMvastatin 10 MG (ZOCOR) TAB PO SCH (21:08)
[2019-06-01] VITALS: BP 115/76
[2019-06-01] MEDS: 1/2 NS IV SOLUTION 1,000 ML IV SCH (04:23)
[2019-06-01] MEDS: inSUlin ASPART (NovoLOG) 1 UNIT/0.01 ML (CHARGE PER UNIT) SC SCH ×3 (05:47→16:29)
[2019-06-01] MEDS: VITAMIN D3 1,000 UNITS (CHOLECALCIFEROL) TABLET PO SCH (06:43)
[2019-06-01] MEDS: MULTIVIT W/MINERALS TAB (THERAGRAN M) PO SCH (06:43)
[2019-06-01] MEDS: CALCIUM CARB + VIT D 600 MG (CALCARB + D) TAB PO SCH ×2 (06:43→17:34)
[2019-06-01] MEDS: KCL 20 MEQ POWDER FOR ORAL SOLUTION PO SCH (06:43)
[2019-06-01 08:00] VITALS: BP 117/73
--- NOTE | 2019-06-01 08:27 | Progress Note ---
Subjective Time Seen by a Provider: 08:26 Subjective/Events-last exam Patient to be discharged today with Murcia catheter. Patient go back to [facility]. Patient doing good Objective Exam Vital Signs Date Time Temp Pulse Resp B/P (MAP) Pulse Ox O2 Delivery O2 Flow Rate FiO2 06/01/19 08:00 97.9 97 18 117/73 (88) 93 Room Air 06/01/19 00:00 98.5 89 26 115/76 (89) 96 Room Air 05/31/19 20:00 Room Air 05/31/19 16:08 98.3 89 20 109/68 (82) 97 Room Air I & O 06/01/19 07:00 Intake Total 1600 ml Output Total 2700 ml Balance -1100 ml Capillary Refill : Less Than 3 Seconds General Appearance: No Apparent Distress, WD/WN HEENT: Normal ENT Inspection Neck: Full Range of Motion, Normal Inspection Respiratory: Lungs Clear, No Accessory Muscle Use, No Respiratory Distress Cardiovascular: Regular Rate, Rhythm, No Murmur Gastrointestinal: non tender, soft Results Lab Laboratory Tests 05/31/19 11:16: Glucometer 233H 05/31/19 15:36: Glucometer 120H 05/31/19 20:46: Glucometer 155H 06/01/19 05:30: Glucometer 138H Microbiology 05/25/19 Urine Culture - Final, Complete NO GROWTH Assessment/Plan Assessment/Plan Assess & Plan/Chief Complaint UTI. Urinary retention. Dehydration. Renal insufficiency. Dementia with history of agitation. . 05/29/19. UTI Klebsiella sensitive to Rocephin. Urinary retention. Dehydration. Dementia. Dehydration.. Right middle lobe pneumonia. . 05/30/19. UTI resolved from Klebsiella Urinary retention still has. Dehydration resolved. Dementia. Right middle lobe pneumonia resolved. . 05/31/19. Urinary retention. UTI resolved. Dehydration. Dementia. Right middle lobe pneumonia. Patient had cystoscopy.. . 06/01/19. Urinary retention. Patient uses yesterday and refused cystoscopy. Dehydration. Dementia. Right middle lobe pneumonia. Patient be discharged today back to [facility] with Murcia catheter in place Clinical Quality Measures Admission Status Admission Dx UTI. Urinary obstruction. Right middle lobe pneumonia. Dehydration. Renal insufficiency. Constipation. Dementia. Weight loss. Diabetes. DVT/VTE Risk/Contraindication: Risk Factor Score Per Nursin RFS Level Per Nursing on Admit: 4+=Very High GELLENDER,MIGUEL A DO Jun 01, 2019 08:27
[2019-06-01] MEDS ORDERED: TAMS0.4C98 PO (08:31)
--- NOTE | 2019-06-01 08:32 | Discharge Inst-Skilled Nursing ---
Discharge Inst-Skilled NF Patient Instructions Patient Problems: Urinary retention. Dementia. Right lung pneumonia Consult/Follow Up/Orders Skilled NF Admit to: [facility] Certification (SNF) I certify that SNF services are required to be given on an inpatient basis because of the above named patient's need for halfway care on a continuing basis for the conditions(s) for which he/she was receiving inpatient hospital services prior to his/her transfer to the SNF. [facility] Facility Order: [facility]-Evaluate & Treat, Physical Therapy-Evaluate & Treat Oxygen Delivery Method: Room Air Discharge Diet: ADA Diet New & Resume Previous Orders Julio Henson Jun 01, 2019 08:31 JULIO HENSON DO Jun 01, 2019 08:32
[2019-06-01] MEDS: SENNA W/DOCUSATE (SENOKOT S) TABLET PO SCH (09:15)
[2019-06-01] MEDS: ZIPRASIDONE 20 MG (GEODON) CAP PO SCH (09:15)
[2019-06-01] MEDS: TAMSULOSIN 0.4 MG (FLOMAX) CAP PO SCH (09:15)
[2019-06-01] MEDS: ASPIRIN 325 MG (5 GR) TABLET PO SCH (09:15)
[2019-06-01] MEDS: POLYETHYLENE GLYCOL 17 GM (MIRALAX) PACK PO SCH (09:15)
[2019-06-01] MEDS: clonazePAM 0.5 MG (KlonoPIN) TAB PO SCH (09:15)
[2019-06-01] MEDS: ENOXAPARIN 30 MG/0.3 ML (LOVENOX) SYR SC SCH (10:42)
--- NOTE | 2019-06-01 12:57 | NUR ---
CM/SS. Patient discharged back to [facility] with Medicare skilled services via their transport scheduled for 1630. Faxed orders to SNF, prepared packet to accompany patient. Unit RNs aware.
--- NOTE | 2019-06-01 13:48 | NUR ---
Report given to Annie at [facility]. 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
[2019-06-01 16:12] VITALS: BP 104/68
--- NOTE | 2019-06-02 07:23 | Discharge Summary ---
Diagnosis/Chief Complaint Date of Admission May 25, 2019 at 04:20 Date of Discharge Jun 01, 2019 at 18:00 Discharge Date: Jun 01, 2019 Discharge Time: 07:20 Discharge Diagnosis UTI due to Klebsiella pneumonia. Acute cystitis. Urinary retention. Right middle lung pneumonia. Dehydration. Acute renal failure. Currently pressure ulcer. Diabetes. Dementia with agitation. Reason Hospital Visit Patient is resident of a [facility]. Patient has multiple problems. Patient evaluated in emergency room Patient has UTI, weight loss recently, elevated blood sugars diabetes, dehydration, chest x-ray showed right middle lobe pneumonia, constipation history,. Dementia without talking. Urinary retention and renal insufficiency. Patient does not communicate. Patient is a DO NOT RESUSCITATE. Patient is DO NOT INTUBATE Discharge Summary Consultations Urology Discharge Physical Examination Allergies: Coded Allergies: haloperidol (Unverified Allergy, Mild, 04/03/14) Vitals & I&Os Vital Signs Date Time Temp Pulse Resp B/P (MAP) Pulse Ox O2 Delivery O2 Flow Rate FiO2 06/01/19 17:30 06/01/19 16:12 98.3 80 20 97 Room Air Hospital Course Labs (last 24 hrs) Laboratory Tests 05/25/19 03:20: Urine Color YELLOW, Urine Clarity SLIGHTLY CLOUDY, Urine pH 5, Urine Specific [place] 1.015L, Urine Protein 3+H, Urine Glucose (UA) 2+H, Urine Ketones NEGATIVE, Urine Nitrite NEGATIVE, Urine Bilirubin NEGATIVE, Urine Urobilinogen NORMAL, Urine Leukocyte Esterase 3+H, Urine RBC (Auto) 4+H, Urine RBC RARE, Urine WBC >100H, Urine Crystals NONE, Urine Bacteria FEWH, Urine Casts NONE, Ur ine Mucus NEGATIVE, Urine Culture Indicated YES 05/25/19 03:25: White Blood Count 10.7, Red Blood Count 5.77, Hemoglobin 16.2, Hematocrit 49, Mean Corpuscular Volume 85, Mean Corpuscular Hemoglobin 28, Mean Corpuscular Hemoglobin Concent 33, Red Cell Distribution Width 14.3, Platelet Count 251, Mean Platelet Volume 11.0H, Neutrophils (%) (Auto) 76H, Lymphocytes (%) (Auto) 18, Monocytes (%) (Auto) 7, Eosinophils (%) (Auto) 0, Basophils (%) (Auto) 0, Neutrophils # (Auto) 8.1H, Lymphocytes # (Auto) 1.9, Monocytes # (Auto) 0.7, Eosinophils # (Auto) 0.0, Basophils # (Auto) 0.0, Sodium Level 146H, Potassium Level 4.6, Chloride Level 110H, Carbon Dioxide Level 21, Anion Gap 15H, Blood Urea Nitrogen 50H, Creatinine 1.44H, Estimat Glomerular Filtration Rate 49, BUN/Creatinine Ratio 35, Glucose Level 445*H, Mean Blood Glucose 154H, Hemoglobin A1c 7.0H, Calcium Level 10.2H, Corrected Calcium 10.3H, Magnesium Level 2.8H, Total Bilirubin 1.3H, Aspartate Amino Transf (AST/SGOT) 25, Alanine Aminotransferase (ALT/SGPT) 29, Alkaline Phosphatase 109, Total Protein 8.6H, Albumin 3.9, Amylase Level 53, Lipase 70 05/25/19 03:40: Glucometer 356H 05/25/19 04:20: Lab Scanned Report Referred Lab Report 05/25/19 04:30: Glucometer 262H 05/25/19 07:08: Glucometer 184H 05/25/19 11:12: Glucometer 278H 05/25/19 12:31: Urine Color YELLOW, Urine Clarity SLIGHTLY CLOUDY, Urine pH 5, Urine Specific [place] 1.015L, Urine Protein 2+H, Urine Glucose (UA) 2+H, Urine Ketones NEGATIVE, Urine Nitrite NEGATIVE, Urine Bilirubin NEGATIVE, Urine Urobilinogen NORMAL, Urine Leukocyte Esterase 3+H, Urine RBC (Auto) 2+H, Urine RBC 5-10H, Urine WBC >100H, Urine Squamous Epithelial Cells 2-5, Urine Crystals NONE, Urine Bacteria LARGEH, Urine Casts NONE, Urine Mucus NEGATIVE, Urine Culture Indicated YES 05/25/19 16:40: Glucometer 205H 05/25/19 20:04: Glucometer 169H 05/26/19 05:44: Glucometer 170H 05/26/19 05:45: White Blood Count 8.5, Red Blood Count 4.63, Hemoglobin 13.1L, Hematocrit 41, Mean Corpuscular Volume 89, Mean Corpuscular Hemoglobin 28, Mean Corpuscular Hemoglobin Concent 32, Red Cell Distribution Width 14.1, Platelet Count 172, Mean Platelet Volume 10.8H, Neutrophils (%) (Auto) 59, Lymphocytes (%) (Auto) 34, Monocytes (%) (Auto) 5, Eosinophils (%) (Auto) 2, Basophils (%) (Auto) 0, Neutrophils # (Auto) 5.0, Lymphocytes # (Auto) 2.9, Monocytes # (Auto) 0.4, Eosinophils # (Auto) 0.1, Basophils # (Auto) 0.0, Neutrophils % (Manual) 65, Lymphocytes % (Manual) 28, Monocytes % (Manual) 5, Eosinophils % (Manual) 1, Basophils % (Manual) 1, Band Neutrophils 0, Blood Morphology Comment NORMAL, Sodium Level 151H, Potassium Level 3.5L, Chloride Level 119H, Carbon Dioxide Level 20L, Anion Gap 12, Blood Urea Nitrogen 25H, Creatinine 0.86, Estimat Glomerular Filtration Rate > 60, BUN/Creatinine Ratio 29, Glucose Level 180H, Calcium Level 8.7, Corrected Calcium 9.5, Total Bilirubin 0.8, Aspartate Amino Transf (AST/SGOT) 22, Alanine Aminotransferase (ALT/SGPT) 25, Alkaline Phosphatase 88, Total Protein 6.4, Albumin 3.0L 05/26/19 11:18: Glucometer 219H 05/26/19 15:57: Glucometer 162H 05/26/19 20:39: Glucometer 149H 05/27/19 05:39: Glucometer 125H 05/27/19 05:40: White Blood Count 7.1, Red Blood Count 5.02, Hemoglobin 14.5, Hematocrit 44, Mean Corpuscular Volume 88, Mean Corpuscular Hemoglobin 29, Mean Corpuscular Hemoglobin Concent 33, Red Cell Distribution Width 14.0, Platelet Count 40L, Mean Platelet Volume 10.6H, Sodium Level 145, Potassium Level 4.3, Chloride Level 115H, Carbon Dioxide Level 17L, Anion Gap 13, Blood Urea Nitrogen 11, Creatinine 0.84, Estimat Glomerular Filtration Rate > 60, BUN/Creatinine Ratio 13, Glucose Level 135H, Calcium Level 9.1 05/27/19 11:07: Glucometer 199H 05/27/19 16:09: Glucometer 156H 05/27/19 20:43: Glucometer 168H 05/28/19 05:08: Glucometer 177H 05/28/19 11:25: Glucometer 193H 05/28/19 16:18: Glucometer 151H 05/28/19 21:01: Glucometer 216H 05/29/19 04:26: White Blood Count 6.7, Red Blood Count 4.57, Hemoglobin 13.2L, Hematocrit 39L, Mean Corpuscular Volume 86, Mean Corpuscular Hemoglobin 29, Mean Corpuscular Hemoglobin Concent 34, Red Cell Distribution Width 13.4, Platelet Count 166, Mean Platelet Volume 11.2H, Neutrophils (%) (Auto) 60, Lymphocytes (%) (Auto) 33, Monocytes (%) (Auto) 4, Eosinophils (%) (Auto) 3, Basophils (%) (Auto) 0, Neutrophils # (Auto) 4.0, Lymphocytes # (Auto) 2.2, Monocytes # (Auto) 0.3, Eosinophils # (Auto) 0.2, Basophils # (Auto) 0.0, Sodium Level 143, Potassium Level 3.6, Chloride Level 108H, Carbon Dioxide Level 23, Anion Gap 12, Blood Urea Nitrogen 7, Creatinine 0.86, Estimat Glomerular Filtration Rate > 60, BUN/Creatinine Ratio 8, Glucose Level 145H, Calcium Level 9.1, Corrected Calcium 9.8, Total Bilirubin 0.6, Aspartate Amino Transf (AST/SGOT) 22, Alanine Aminotransferase (ALT/SGPT) 20, Alkaline Phosphatase 84, Total Protein 6.6, Albumin 3.1L 05/29/19 10:10: Urine Color YELLOW, Urine Clarity CLEAR, Urine pH 7, Urine Specific [place] 1.010L, Urine Protein 1+H, Urine Glucose (UA) NEGATIVE, Urine Ketones 3+H, Urine Nitrite NEGATIVE, Urine Bilirubin NEGATIVE, Urine Urobilinogen NORMAL, Urine Leukocyte Esterase 1+H, Urine RBC (Auto) 1+H, Urine RBC 2-5H, Urine WBC 2-5, Urine Squamous Epithelial Cells RARE, Urine Crystals NONE, Urine Bacteria TRACE, Urine Casts NONE, Urine Mucus SMALLH, Urine Culture Indicated NO 05/29/19 10:54: Glucometer 250H 05/29/19 16:06: Glucometer 148H 05/29/19 20:50: Glucometer 167H 05/30/19 05:26: Glucometer 190H 05/30/19 10:52: Glucometer 225H 05/30/19 15:48: Glucometer 98 05/30/19 20:25: Glucometer 139H 05/31/19 05:23: Glucometer 131H 05/31/19 11:16: Glucometer 233H 05/31/19 15:36: Glucometer 120H 05/31/19 20:46: Glucometer 155H 06/01/19 05:30: Glucometer 138H 06/01/19 10:55: Glucometer 289H 06/01/19 16:20: Glucometer 191H Microbiology 05/25/19 Urine Culture - Final, Complete NO GROWTH Laboratory Tests 05/25/19 03:25 05/26/19 05:45 05/27/19 05:40 05/29/19 04:26 Pending Labs Microbiology Date/Time Source Procedure Growth Status 05/25/19 12:31 Urine Clean Catch Urine Culture - Final NO GROWTH Complete 05/25/19 03:20 Urine Straight Cath, In/Out Urine Culture - Final Klebsiella pneumoniae Complete Laboratory Tests 05/25/19 03:20: Urine Color YELLOW, Urine Clarity SLIGHTLY CLOUDY, Urine pH 5, Urine Specific [place] 1.015, Urine Protein 3+, Urine Glucose (UA) 2+, Urine Ketones NEGATIVE, Urine Nitrite NEGATIVE, Urine Bilirubin NEGATIVE, Urine Urobilinogen NORMAL, Ur ine Leukocyte Esterase 3+, Urine RBC (Auto) 4+, Urine RBC RARE, Urine WBC >100, Urine Crystals NONE, Urine Bacteria FEW, Urine Casts NONE, Urine Mucus NEGATIVE, Urine Culture Indicated YES 05/25/19 03:25: White Blood Count 10.7, Red Blood Count 5.77, Hemoglobin 16.2, Hematocrit 49, Mean Corpuscular Volume 85, Mean Corpuscular Hemoglobin 28, Mean Corpuscular Hemoglobin Concent 33, Red Cell Distribution Width 14.3, Platelet Count 251, Mean Platelet Volume 11.0, Neutrophils (%) (Auto) 76, Lymphocytes (%) (Auto) 18, Monocytes (%) (Auto) 7, Eosinophils (%) (Auto) 0, Basophils (%) (Auto) 0, Neutrophils # (Auto) 8.1, Lymphocytes # (Auto) 1.9, Monocytes # (Auto) 0.7, Eosinophils # (Auto) 0.0, Basophils # (Auto) 0.0, Sodium Level 146, Potassium Level 4.6, Chloride Level 110, Carbon Dioxide Level 21, Anion Gap 15, Blood Urea Nitrogen 50, Creatinine 1.44, Estimat Glomerular Filtration Rate 49, BUN/Creatinine Ratio 35, Glucose Level 445, Mean Blood Glucose 154, Hemoglobin A1c 7.0, Calcium Level 10.2, Corrected Calcium 10.3, Magnesium Level 2.8, Total Bilirubin 1.3, Aspartate Amino Transf (AST/SGOT) 25, Alanine Aminotransferase (ALT/SGPT) 29, Alkaline Phosphatase 109, Total Protein 8.6, Albumin 3.9, Amylase Level 53, Lipase 70 05/25/19 03:40: Glucometer 356 05/25/19 04:20: Lab Scanned Report Referred Lab Report 05/25/19 04:30: Glucometer 262 05/25/19 07:08: Glucometer 184 05/25/19 11:12: Glucometer 278 05/25/19 12:31: Urine Color YELLOW, Urine Clarity SLIGHTLY CLOUDY, Urine pH 5, Urine Specific [place] 1.015, Urine Protein 2+, Urine Glucose (UA) 2+, Urine Ketones NEGATIVE, Urine Nitrite NEGATIVE, Urine Bilirubin NEGATIVE, Urine Urobilinogen NORMAL, Urine Leukocyte Esterase 3+, Urine RBC (Auto) 2+, Urine RBC 5-10, Urine WBC >100, Urine Squamous Epithelial Cells 2-5, Urine Crystals NONE, Urine Bacteria LARGE, Urine Casts NONE, Urine Mucus NEGATIVE, Urine Culture Indicated YES 05/25/19 16:40: Glucometer 205 05/25/19 20:04: Glucometer 169 05/26/19 05:44: Glucometer 170 05/26/19 05:45: White Blood Count 8.5, Red Blood Count 4.63, Hemoglobin 13.1, Hematocrit 41, Mean Corpuscular Volume 89, Mean Corpuscular Hemoglobin 28, Mean Corpuscular Hemoglobin Concent 32, Red Cell Distribution Width 14.1, Platelet Count 172, Mean Platelet Volume 10.8, Neutrophils (%) (Auto) 59, Lymphocytes (%) (Auto) 34, Monocytes (%) (Auto) 5, Eosinophils (%) (Auto) 2, Basophils (%) (Auto) 0, Neutrophils # (Auto) 5.0, Lymphocytes # (Auto) 2.9, Monocytes # (Auto) 0.4, Eosinophils # (Auto) 0.1, Basophils # (Auto) 0.0, Neutrophils % (Manual) 65, Lymphocytes % (Manual) 28, Monocytes % (Manual) 5, Eosinophils % (Manual) 1, Basophils % (Manual) 1, Band Neutrophils 0, Blood Morphology Comment NORMAL, Sodium Level 151, Potassium Level 3.5, Chloride Level 119, Carbon Dioxide Level 20, Anion Gap 12, Blood Urea Nitrogen 25, Creatinine 0.86, Estimat Glomerular Filtration Rate > 60, BUN/Creatinine Ratio 29, Glucose Level 180, Calcium Level 8.7, Corrected Calcium 9.5, Total Bilirubin 0.8, Aspartate Amino Transf (AST/SGOT) 22, Alanine Aminotransferase (ALT/SGPT) 25, Alkaline Phosphatase 88, Total Protein 6.4, Albumin 3.0 05/26/19 11:18: Glucometer 219 05/26/19 15:57: Glucometer 162 05/26/19 20:39: Glucometer 149 05/27/19 05:39: Glucometer 125 05/27/19 05:40: White Blood Count 7.1, Red Blood Count 5.02, Hemoglobin 14.5, Hematocrit 44, Mean Corpuscular Volume 88, Mean Corpuscular Hemoglobin 29, Mean Corpuscular Hemoglobin Concent 33, Red Cell Distribution Width 14.0, Platelet Count 40, Mean Platelet Volume 10.6, Sodium Level 145, Potassium Level 4.3, Chloride Level 115, Carbon Dioxide Level 17, Anion Gap 13, Blood Urea Nitrogen 11, Creatinine 0.84, Estimat Glomerular Filtration Rate > 60, BUN/Creatinine Ratio 13, Glucose Level 135, Calcium Level 9.1 05/27/19 11:07: Glucometer 199 05/27/19 16:09: Glucometer 156 05/27/19 20:43: Glucometer 168 05/28/19 05:08: Glucometer 177 05/28/19 11:25: Glucometer 193 05/28/19 16:18: Glucometer 151 05/28/19 21:01: Glucometer 216 05/29/19 04:26: White Blood Count 6.7, Red Blood Count 4.57, Hemoglobin 13.2, Hematocrit 39, Mean Corpuscular Volume 86, Mean Corpuscular Hemoglobin 29, Mean Corpuscular Hemoglobin Concent 34, Red Cell Distribution Width 13.4, Platelet Count 166, Mean Platelet Volume 11.2, Neutrophils (%) (Auto) 60, Lymphocytes (%) (Auto) 33, Monocytes (%) (Auto) 4, Eosinophils (%) (Auto) 3, Basophils (%) (Auto) 0, Neutrophils # (Auto) 4.0, Lymphocytes # (Auto) 2.2, Monocytes # (Auto) 0.3, Eosinophils # (Auto) 0.2, Basophils # (Auto) 0.0, Sodium Level 143, Potassium Level 3.6, Chloride Level 108, Carbon Dioxide Level 23, Anion Gap 12, Blood Urea Nitrogen 7, Creatinine 0.86, Estimat Glomerular Filtration Rate > 60, BUN/Creatinine Ratio 8, Glucose Level 145, Calcium Level 9.1, Corrected Calcium 9.8, Total Bilirubin 0.6, Aspartate Amino Transf (AST/SGOT) 22, Alanine Aminotransferase (ALT/SGPT) 20, Alkaline Phosphatase 84, Total Protein 6.6, Albumin 3.1 05/29/19 10:10: Urine Color YELLOW, Urine Clarity CLEAR, Urine pH 7, Urine Specific [place] 1.010, Urine Protein 1+, Urine Glucose (UA) NEGATIVE, Urine Ketones 3+, Urine Nitrite NEGATIVE, Urine Bilirubin NEGATIVE, Urine Urobilinogen NORMAL, Urine Leukocyte Esterase 1+, Urine RBC (Auto) 1+, Urine RBC 2-5, Urine WBC 2-5, Urine Squamous Epithelial Cells RARE, Urine Crystals NONE, Urine Bacteria TRACE, Urine Casts NONE, Urine Mucus SMALL, Urine Culture Indicated NO 05/29/19 10:54: Glucometer 250 05/29/19 16:06: Glucometer 148 05/29/19 20:50: Glucometer 167 05/30/19 05:26: Glucometer 190 05/30/19 10:52: Glucometer 225 05/30/19 15:48: Glucometer 98 05/30/19 20:25: Glucometer 139 05/31/19 05:23: Glucometer 131 05/31/19 11:16: Glucometer 233 05/31/19 15:36: Glucometer 120 05/31/19 20:46: Glucometer 155 06/01/19 05:30: Glucometer 138 06/01/19 10:55: Glucometer 289 06/01/19 16:20: Glucometer 191 Discussion & Recommendations Transferred with [place] catheter to [facility] Discharge Home Medications: Active Scripts Active Flomax (Tamsulosin HCl) 0.4 Mg Cap 0.4 Mg PO BID 30 Days Reported Miralax (Polyethylene Glycol 3350) 17 Gm Powd.pack 17 Gm PO DAILY PRN Pravastatin Sodium 20 Mg Tablet 20 Mg PO HS Mirtazapine 30 Mg Tablet 30 Mg PO HS Potassium Chloride 20 Meq/15 Ml Liquid 15 Ml PO DAILY Miralax (Polyethylene Glycol 3350) 17 Gm Powd.pack 17 Gm PO DAILY Milk of Magnesia (Magnesium Hydroxide) 400 Mg/5 Ml Oral.susp 30 Ml PO DAILY PRN Metformin HCl 500 Mg Tablet 500 Mg PO BID Glucose (Dextrose) 33 Gm Gel.packet PO UD PRN GIVE 1 PACKET FOR HYPOGLYCEMIC EVENT, RETAKE BLOOD SUGAR IN 15 MIN, IF BS DOES NOT RISE GIVE ANOTHER PACKET AND RETAKE BS IN 15 MINUTES. IF STILL DOES NOT RISE GIVE IM GLUCAGON AND NOTIFY PHYSICIAN. Ziprasidone HCl 40 Mg Capsule 40 Mg PO HS Ziprasidone HCl 20 Mg Capsule 20 Mg PO DAILY Dulcolax (Bisacodyl) 10 Mg Supp.rect 10 Mg RC DAILY PRN Clonazepam 0.5 Mg Tablet 1 Mg PO HS TAKES 2 (0.5MG) TABLETS Clonazepam 0.5 Mg Tablet 0.5 Mg PO DAILY Bisacodyl 5 Mg Tablet.dr 5 Mg PO DAILY PRN Calcium 600 + Vit D 400 Tablet (Calcium Carbonate/Vitamin D3) 1 Each Tablet 1 Tab PO BID Multivitamins with Minerals (Multivitamin with Minerals) 1 Each Tablet 1 Tab PO DAILY Glucagon Emergency Kit (Glucagon,Human Recombinant) 1 Mg/Kit Soln 1 Mg IJ UD PRN Tylenol (Acetaminophen) 325 Mg Tablet 650 Mg PO Q6H PRN TAKES 2 (325 MG) TABLETS Hydrocodone/Acetaminophen 5/325mg Tablet (Acetaminophen/Hydrocodone Bitart) 1 Each Tablet 1 Tab PO TID PRN Aspirin 325 Mg Tablet 325 Mg PO DAILY Vitamin D (Cholecalciferol (Vitamin D3)) 1,000 Unit Tablet 1,000 Unit PO DAILY Senna S Tablet (Sennosides/Docusate Sodium) 1 Each Tablet 1 Tab PO DAILY Instructions to patient/family Please see electronic discharge instructions given to patient. Clinical Quality Measures DVT/VTE Risk/Contraindication: Risk Factor Score Per Nursin RFS Level Per Nursing on Admit: 4+=Very High MIGUEL HENSON DO Jun 02, 2019 07:23
== END 2019-06-01 18:00 | DRG 689 ==
LOC: EDUNIT# 03:12 → ER 03:14 → 4TH 04:20
PROVIDERS: ADMIT Urology; ATTEND Urology
DX: N30.01 Acute cystitis with hematuria (principal); R33.9 Retention of urine, unspecified; J18.1 Lobar pneumonia, unspecified organism; F03.91 Unspecified dementia, unspecified severity, with behavioral disturbance; N17.9 Acute kidney failure, unspecified; E86.0 Dehydration; N13.9 Obstructive and reflux uropathy, unspecified; E11.65 Type 2 diabetes mellitus with hyperglycemia; Z66 Do not resuscitate; K59.09 Other constipation; E78.00 Pure hypercholesterolemia, unspecified; F48.2 Pseudobulbar affect; F41.9 Anxiety disorder, unspecified; F32.9 Major depressive disorder, single episode, unspecified; L89.629 Pressure ulcer of left heel, unspecified stage; R41.82 Altered mental status, unspecified; B96.1 Klebsiella pneumoniae [K. pneumoniae] as the cause of diseases classified elsewhere; L89.95 Pressure ulcer of unspecified site, unstageable; Z86.73 Personal history of transient ischemic attack (TIA), and cerebral infarction without residual deficits
CPT/HCPCS: 36415; 51702; 71045; 74018; 80048; 80053; 81000; 82150; 82962; 83036; 83690; 83735; 85007; 85025; 85027; 87077; 87088; 87186; 93041; 96361; 96374; 96375

== ENCOUNTER 2019-11-03 20:45 | Emergency (ER) | payer MEDICARE, MEDICAID ==
[~2019-11-03] VITALS: Ht 170 cm; Wt 68.0 kg
[~2019-11-03 20:45] MED LIST changes: +BISA10SU58 RC; +BISA5TAB8 PO; +CALC1TAB94 PO; +CLON0.5T13 PO; +DEXT33GE7 PO; +MAGN400O7 PO; +METF-397 PO; +MIRT30TA6 PO; +MULT-166 PO; +POLY17PO6 PO; +POTA20LI3 PO; +PRAV20TA3 PO; +TAMS0.4C98 PO; +ZIPR20CA24 PO; +ZIPR40CA26 PO
--- NOTE | 2019-11-03 20:58 | ED General ---
General Stated Complaint: SUICIDAL Source of Information: Patient Exam Limitations: No Limitations History of Present Illness Date Seen by Provider: Nov 03, 2019 Time Seen by Provider: 20:52 Initial Comments Gentleman to ER per EMS from [facility] with reports of "making suicidal comments" and having chewed through his Murcia catheter bag. Arrives to ER via EMS stating that he feels better. He is admitted at [facility] with diagnoses of anxiety disorder, depressive disorder, type 2 diabetes, pseudo-bulbar affect, muscle weakness, delusional disorder, retention of urine, dementia, facial weakness following cerebral infarction. He is DO NOT RESUSCITATE status. He is currently on Geodon 20 mg in the morning and 40 mg at bedtime, Remeron 30 mg at bedtime, clonazepam 0.5 mg in the morning and 1 mg at bedtime for anxiety. Timing/Duration: 1-3 Hours Severity: Moderate Associated Systoms: Denies Symptoms Allergies and Home Medications Allergies Coded Allergies: haloperidol (Unverified Allergy, Mild, 04/03/14) Home Medications Acetaminophen 325 Mg Tablet, 650 MG PO Q6H PRN for PAIN-MILD OR TEMPATURE, (Reported) TAKES 2 (325 MG) TABLETS Aspirin 325 Mg Tablet, 325 MG PO DAILY, (Reported) Bisacodyl 5 Mg Tablet.dr, 5 MG PO DAILY PRN for CONSTIPATION-4TH LINE, (Reported) Bisacodyl 10 Mg Supp.rect, 10 MG RC DAILY PRN for CONSTIPATION-4TH LINE, (Reported) Calcium Carbonate/Vitamin D3 1 Each Tablet, 1 TAB PO BID, (Reported) Cefdinir 300 Mg Capsule, 300 MG PO BID Prescribed by: MARK CAAL on 11/03/192206 Cholecalciferol (Vitamin D3) 1,000 Unit Tablet, 1,000 UNIT PO DAILY, (Reported) Clonazepam 0.5 Mg Tablet, 0.5 MG PO DAILY, (Reported) Clonazepam 0.5 Mg Tablet, 1 MG PO HS, (Reported) TAKES 2 (0.5MG) TABLETS Dextrose 33 Gm Gel.packet, PO UD PRN for HYPOGLYCEMIA, (Reported) GIVE 1 PACKET FOR HYPOGLYCEMIC EVENT, RETAKE BLOOD SUGAR IN 15 MIN, IF BS DOES NOT RISE GIVE ANOTHER PACKET AND RETAKE BS IN 15 MINUTES. IF STILL DOES NOT RISE GIVE IM GLUCAGON AND NOTIFY PHYSICIAN. Glucagon,Human Recombinant 1 Mg/Kit Soln, 1 MG IJ UD PRN for HYPOGLYCEMIA, (Reported) Hydrocodone Bit/Acetaminophen 1 Each Tablet, 1 TAB PO TID PRN for PAIN-MODERATE, (Reported) Magnesium Hydroxide 400 Mg/5 Ml Oral.susp, 30 ML PO DAILY PRN for CONSTIPATION- 7TH LINE, (Reported) Metformin HCl 500 Mg Tablet, 500 MG PO BID, (Reported) Mirtazapine 30 Mg Tablet, 30 MG PO HS, (Reported) Multivitamin with Minerals 1 Each Tablet, 1 TAB PO DAILY, (Reported) Polyethylene Glycol 3350 17 Gm Powd.pack, 17 GM PO DAILY, (Reported) Polyethylene Glycol 3350 17 Gm Powd.pack, 17 GM PO DAILY PRN for CONSTIPATION- 2ND LINE, (Reported) Potassium Chloride 20 Meq/15 Ml Liquid, 15 ML PO DAILY, (Reported) Pravastatin Sodium 20 Mg Tablet, 20 MG PO HS, (Reported) Sennosides/Docusate Sodium 1 Each Tablet, 1 TAB PO DAILY, (Reported) Tamsulosin HCl 0.4 Mg Cap, 0.4 MG PO BID Prescribed by: MIGUEL HENSON on 06/01/19 0831 Ziprasidone HCl 20 Mg Capsule, 20 MG PO DAILY, (Reported) Ziprasidone HCl 40 Mg Capsule, 40 MG PO HS, (Reported) Patient Home Medication List Home Medication List Reviewed: Yes Review of Systems Review of Systems Constitutional: see HPI, other (unable to obtain due to mental status) Past Kjyulxn-Mjlcyb-Lodhdh Hx Patient Social History 2nd Hand Smoke Exposure: No Recent Hopitalizations: No Immunizations Up To Date Tetanus Booster (TDap): Unknown Date of Pneumonia Vaccine: Aug 15, 2014 Date of Influenza Vaccine: Sep 09, 2015 Seasonal Allergies Seasonal Allergies: No Past Medical History Surgeries: Yes (LEFT HIP SURGERY--NOTED ON XRAY) Respiratory: No Cardiac: Yes High Cholesterol Neurological: Yes Dementia, Stroke Reproductive Disorders: No Genitourinary: Yes UTI-Chronic Gastrointestinal: Yes Chronic Constipation Musculoskeletal: No Endocrine: Yes Diabetes, Non-Insulin dep HEENT: No Loss of Vision: Denies Cancer: No Psychosocial: Yes Anxiety, Depression Integumentary: No Blood Disorders: No Family Medical History Patient reports no known family medical history. Physical Exam Vital Signs Vital Signs - First Documented 11/03/19 20:47 Temp 36.6 Pulse 86 Resp 18 B/P (MAP) 132/78 (96) O2 Delivery Room Air Capillary Refill : Height, Weight, BMI Height: 6'0.00" Weight: 148lbs. 4.5oz. 67.678949zj; 17.5 BMI Method:Estimated General Appearance: No Apparent Distress, WD/WN, Chronically ill, Thin (frail, older than stated age appearing. Alert and cooperative. States "I want to see my father, I love my father") HEENT: PERRL/EOMI, TMs Normal Neck: Full Range of Motion, Normal Inspection Respiratory: No Accessory Muscle Use, No Respiratory Distress Cardiovascular: Regular Rate, Rhythm, Normal Peripheral Pulses Gastrointestinal: Non Tender, Soft Neurologic/Psychiatric: Alert Skin: Normal Color, Warm/Dry Comments Murcia catheter tubing and bag in place and functional, nursing staff at the longterm was able to change the Murcia catheter bag after he reportedly chewed through it. Progress/Results/Core Measures Suspected Sepsis SIRS Temperature: Pulse: Respiratory Rate: Laboratory Tests 11/03/19 20:52: White Blood Count 4.3 Blood Pressure / Mean: Laboratory Tests 11/03/19 20:52: Creatinine 0.88, Platelet Count 182, Total Bilirubin 0.6 Results/Orders Lab Results Laboratory Tests Test 11/03/19 20:52 11/03/19 21:32 Range/Units White Blood Count 4.3 4.3-11.0 10^3/uL Red Blood Count 4.54 4.35-5.85 10^6/uL Hemoglobin 13.2 L 13.3-17.7 G/DL Hematocrit 38 L 40-54 % Mean Corpuscular Volume 84 80-99 FL Mean Corpuscular Hemoglobin 29 25-34 PG Mean Corpuscular Hemoglobin Concent 35 32-36 G/DL Red Cell Distribution Width 14.0 10.0-14.5 % Platelet Count 182 130-400 10^3/uL Mean Platelet Volume 9.9 7.4-10.4 FL Neutrophils (%) (Auto) 51 42-75 % Lymphocytes (%) (Auto) 35 12-44 % Monocytes (%) (Auto) 11 0-12 % Eosinophils (%) (Auto) 2 0-10 % Basophils (%) (Auto) 1 0-10 % Neutrophils # (Auto) 2.2 1.8-7.8 X 10^3 Lymphocytes # (Auto) 1.5 1.0-4.0 X 10^3 Monocytes # (Auto) 0.5 0.0-1.0 X 10^3 Eosinophils # (Auto) 0.1 0.0-0.3 10^3/uL Basophils # (Auto) 0.0 0.0-0.1 10^3/uL Sodium Level 141 135-145 MMOL/L Potassium Level 4.1 3.6-5.0 MMOL/L Chloride Level 106 98-107 MMOL/L Carbon Dioxide Level 24 21-32 MMOL/L Anion Gap 11 5-14 MMOL/L Blood Urea Nitrogen 12 7-18 MG/DL Creatinine 0.88 0.60-1.30 MG/DL Estimat Glomerular Filtration Rate > 60 BUN/Creatinine Ratio 14 Glucose Level 196 H 70-105 MG/DL Calcium Level 8.8 8.5-10.1 MG/DL Corrected Calcium 9.1 8.5-10.1 MG/DL Total Bilirubin 0.6 0.1-1.0 MG/DL Aspartate Amino Transf (AST/SGOT) 14 5-34 U/L Alanine Aminotransferase (ALT/SGPT) 11 0-55 U/L Alkaline Phosphatase 90 40-136 U/L Total Protein 6.7 6.4-8.2 GM/DL Albumin 3.6 3.2-4.5 GM/DL Urine Color YELLOW Urine Clarity CLEAR Urine pH 5.5 5-9 Urine Specific [place] >=1.030 1.016-1.022 Urine Protein NEGATIVE NEGATIVE Urine Glucose (UA) NEGATIVE NEGATIVE Urine Ketones NEGATIVE NEGATIVE Urine Nitrite POSITIVE NEGATIVE Urine Bilirubin NEGATIVE NEGATIVE Urine Urobilinogen 2.0 < = 1.0 MG/DL Urine Leukocyte Esterase 2+ H NEGATIVE Urine RBC (Auto) 3+ H NEGATIVE Urine RBC 10-25 H /HPF Urine WBC 25-50 H /HPF Urine Crystals NONE /LPF Urine Bacteria MODERATE H /HPF Urine Casts NONE /LPF Urine Mucus SMALL H /LPF Urine Culture Indicated YES My Orders Orders - MARK CAAL APRN Cbc With Automated Diff (11/03/19 21:19) Comprehensive Metabolic Panel (11/03/19 21:19) Ua Culture If Indicated (11/03/19 21:19) Lorazepam Tablet (Ativan Tablet) (11/03/19 21:22) Urine Culture (11/03/19 21:32) Cefdinir Capsule (Omnicef Capsule) (11/03/19 22:30) Vital Signs/I&O 11/03/19 20:47 Temp 36.6 Pulse 86 Resp 18 B/P (MAP) 132/78 (96) O2 Delivery Room Air Capillary Refill : Departure Communication (Admissions) Patient has asked repeatedly during his ER stay for ice cream and a hooker. Impression Primary Impression: Dementia with behavioral disturbance Qualified Codes: F03.91 - Unspecified dementia with behavioral disturbance Disposition: 03 XFER SNF Condition: Stable Departure-Patient Inst. Decision time for Depature: 20:57 Referrals: MIGUEL HENSON DO (PCP/Family) Primary Care Physician Patient Instructions: Dementia (DC) Add. Discharge Instructions: 1. You may call the ask for evaluation by senior behavioral health unit at [facility] if his behaviors are consistently troubling to him and his peers. Scripts Lorazepam (Ativan) 2 Mg/1 Ml Vial 1 MG IM Q6H PRN for AGITATION for 7 Days, #5 VIAL Prov: MARK CAAL APRN 11/03/19 Lorazepam (Ativan) 1 Mg Tablet 1 MG SL Q6H PRN for AGITATION for 7 Days, #10 TAB Prov: MARK CAAL APRN 11/03/19 Cefdinir (Cefdinir) 300 Mg Capsule 300 MG PO BID, #14 CAP Prov: MARK CAAL APRN 11/03/19 MARK CAAL APRN Nov 03, 2019 20:57
[2019-11-03] MEDS ORDERED: LORazepam 0.5 MG (ATIVAN) TABLET PO STA (21:22)
[2019-11-03 21:27] LABS: BASOPHILS % (AUTO) 1 % (0-10); EOSINOPHILS # (AUTO) 0.1 10^3/uL (0.0-0.3); EOSINOPHILS % (AUTO) 2 % (0-10); HEMATOCRIT 38 % (40-54); HEMOGLOBIN 13.2 G/DL (13.3-17.7); LYMPHOCYTES # (AUTO) 1.5 X 10^3 (1.0-4.0); LYMPHOCYTES % (AUTO) 35 % (12-44); MEAN CORPUSCULAR HEMOGLOBIN 29 PG (25-34); MEAN CORPUSCULAR HGB CONC 35 G/DL (32-36); MEAN CORPUSCULAR VOLUME 84 FL (80-99); MEAN PLATELET VOLUME 9.9 FL (7.4-10.4); MONOCYTES # (AUTO) 0.5 X 10^3 (0.0-1.0); MONOCYTES % (AUTO) 11 % (0-12); NEUTROPHILS # (AUTO) 2.2 X 10^3 (1.8-7.8); NEUTROPHILS % (AUTO) 51 % (42-75); PLATELET COUNT 182 10^3/uL (130-400); WHITE BLOOD COUNT 4.3 10^3/uL (4.3-11.0)
[2019-11-03 21:40] LABS: BILIRUBIN,URINE NEGATIVE (NEGATIVE); CLARITY,URINE CLEAR; COLOR,URINE YELLOW; GLUCOSE, URINE (UA) NEGATIVE (NEGATIVE); KETONES,URINE NEGATIVE (NEGATIVE); LEUKOCYTE ESTERASE ,URINE 2+ (NEGATIVE); NITRITE,URINE POSITIVE (NEGATIVE); PH,URINE 5.5 (5-9); PROTEIN,URINE NEGATIVE (NEGATIVE)
[2019-11-03 21:40] LABS: ALANINE AMINOTRANSFERASE 11 U/L (0-55); ALBUMIN 3.6 GM/DL (3.2-4.5); ALKALINE PHOSPHATASE 90 U/L (40-136); BILIRUBIN,TOTAL 0.6 MG/DL (0.1-1.0); BUN/CREATININE RATIO 14; CALCIUM 8.8 MG/DL (8.5-10.1); CARBON DIOXIDE 24 MMOL/L (21-32); CHLORIDE 106 MMOL/L (98-107); CREATININE SERUM 0.88 MG/DL (0.60-1.30); GFR ESTIMATED > 60; GLUCOSE 196 MG/DL (70-105); POTASSIUM 4.1 MMOL/L (3.6-5.0); SODIUM 141 MMOL/L (135-145); TOTAL PROTEIN 6.7 GM/DL (6.4-8.2)
[2019-11-03 22:06] LABS: WBC,URINE 25-50 /HPF
[2019-11-03 22:07] LABS: BACTERIA,URINE MODERATE /HPF
[2019-11-03] MEDS ORDERED: CEFD300C3 PO (22:07)
[2019-11-03] MEDS ORDERED: LORA2VIA30 IM (22:20)
[2019-11-03] MEDS ORDERED: LORA-405 SL (22:20)
--- NOTE | 2019-11-03 22:29 | NUR ---
LALA FROM [facility] CALLED TO INFORM THAT TRANSPORT FROM FACILITY WILL TRANSFER PT BACK TO THE FACILITY.
[2019-11-03] MEDS ORDERED: CEFDINIR 300 MG (OMNICEF) CAP PO ONE (22:30)
[2019-11-03 22:46] VITALS: BP 125/79
== END 2019-11-03 22:58 ==
LOC: EDUNIT# 20:45 → ER 20:46
DX: F03.91 Unspecified dementia, unspecified severity, with behavioral disturbance (principal); F41.9 Anxiety disorder, unspecified; F32.9 Major depressive disorder, single episode, unspecified; E11.9 Type 2 diabetes mellitus without complications; E78.00 Pure hypercholesterolemia, unspecified; Z86.73 Personal history of transient ischemic attack (TIA), and cerebral infarction without residual deficits; Z88.8 Allergy status to other drugs, medicaments and biological substances; Z79.82 Long term (current) use of aspirin; Z79.84 Long term (current) use of oral hypoglycemic drugs
CPT/HCPCS: 36415; 80053; 81000; 85025; 87088

== ENCOUNTER 2023-05-24 18:11 | Inpatient (IN) | payer MEDICARE, MEDICAID ==
[~2023-05-24] VITALS: Ht 180 cm; Wt 60.4 kg
[~2023-05-24 18:11] MED LIST changes: +BISA5TAB20 PO; -BISA5TAB8 PO; +CALC-1026 PO; -CALC1TAB94 PO; +CEFD300C3 PO; -CLON0.5T13 PO; +CLON0.5T4 PO; +ESCI20TA39 PO; -ESCI20TA45 PO; +LORA-405 SL; +LORA2VIA30 IM; -MAGN800O PO; +MIRT-69 PO; -MIRT30TA6 PO; +MOM10U PO; +MULT-567 PO; -MULT1TAB69 PO; +POTA-179 PO; -POTA20TA15 PO; -RISP2TAB3 PO; +RISP2TAB84 PO; -TAMS0.4C98 PO; +TMSL.4C PO; -TRAZ-190 PO; +TRAZ-227 PO; +ZIPR40CA23 PO; -ZIPR40CA26 PO
[2023-05-24] MEDS ORDERED: NS IV 1000 ML 1,000 ML IV STA (18:19)
--- NOTE | 2023-05-24 18:26 | ED General ---
General Chief Complaint: Altered Mental Status Stated Complaint: LETHARGIC Nursing Triage Note: PT ARRIVED PER EMS FROM [facility]. PT IS LETHARGIC. PT FOUND UNRESPONSIVE BY STAFF AT 1700. PT HAS RUBY CATH IN PLACE URINE IS VERY DARK, HAS PUSS NOTED. PT HAS HX OF DEMENTIA. Source of Information: Patient Exam Limitations: No Limitations History of Present Illness Date Seen by Provider: May 24, 2023 Time Seen by Provider: 18:12 Initial Comments Here by EMS with report of altered mental status from the [facility]. He has UA concerning for urinary tract infection with sediment, WBCs and bacteria as well as ketones from the [facility]. EMS reports the [facility] staff tried to reach the patient's guardian and were unable to. They also tried to reach the patient's primary care provider and unable to and ultimately sent him here for further evaluation. Patient has a DNR on file. He had fairly normal vital signs per EMS except for mild tachycardia but normal oxygen saturations. He would open his eyes and track but not answer questions or follow commands. Patient does have history of dementia but apparently is usually what much more active than what he is currently per report to EMS as reported to me. No report of fever currently. No report of vomiting. Patient is not answering questions. Timing/Duration: 12 Hours Severity: Moderate Allergies and Home Medications Allergies Coded Allergies: haloperidol (Unverified Allergy, Mild, 04/03/14) Patient Home Medication List Home Medication List Reviewed: Yes Acetaminophen (Tylenol) 325 Mg Tablet, 650 MG PO Q6H PRN for PAIN-MILD OR TEMPATURE, (Reported) Entered as Reported by: MARJORIE WANG on 09/23/15 1420 Aspirin (Aspirin) 325 Mg Tablet, 325 MG PO DAILY, (Reported) Entered as Reported by: PETER MUKHERJEE on 09/22/15 0341 Bisacodyl (Bisacodyl) 5 Mg Tablet.dr, 5 MG PO DAILY PRN for CONSTIPATION-4TH LINE, (Reported) Entered as Reported by: RICHARD CASIANO on 05/25/19 1050 Bisacodyl (Dulcolax) 10 Mg Supp.rect, 10 MG RC DAILY PRN for CONSTIPATION-4TH LINE, (Reported) Entered as Reported by: RICHARD CASIANO on 05/25/19 1050 Calcium Carbonate/Vitamin D3 (Calcium 600 + Vit D 400 Tablet) 1 Each Tablet, 1 TAB PO BID, (Reported) Entered as Reported by: RICHARD CASIANO on 05/25/19 105 Cefdinir (Cefdinir) 300 Mg Capsule, 300 MG PO BID Prescribed by: MARK CAAL on 11/03/192206 Cholecalciferol (Vitamin D3) (Vitamin D) 1,000 Unit Tablet, 1,000 UNIT PO DAILY, (Reported) Entered as Reported by: PETER MUKHERJEE on 09/22/15 0338 Clonazepam (Clonazepam) 0.5 Mg Tablet, 0.5 MG PO DAILY, (Reported) Entered as Reported by: RICHARD CASIANO on 05/25/19 105 Clonazepam (Clonazepam) 0.5 Mg Tablet, 1 MG PO HS, (Reported) Entered as Reported by: RICHARD CASIANO on 05/25/19 105 Dextrose (Glucose) 33 Gm Gel.packet, PO UD PRN for HYPOGLYCEMIA, (Reported) Entered as Reported by: RICHARD CASIANO on 05/25/19 105 Glucagon,Human Recombinant (Glucagon Emergency Kit) 1 Mg/Kit Soln, 1 MG IJ UD PRN for HYPOGLYCEMIA, (Reported) Entered as Reported by: MARJORIE WANG on 09/23/15 1420 Hydrocodone Bit/Acetaminophen (Lortab 5 Mg Tablet) 1 Each Tablet, 1 TAB PO TID PRN for PAIN-MODERATE, (Reported) Entered as Reported by: TEODORO ISAAC on 09/22/15 0417 Lorazepam (Ativan) 1 Mg Tablet, 1 MG SL Q6H PRN for AGITATION Prescribed by: MARK CAAL on 11/03/192219 Lorazepam (Ativan) 2 Mg/1 Ml Vial, 1 MG IM Q6H PRN for AGITATION Prescribed by: MARK CAAL on 11/03/192219 Magnesium Hydroxide (Milk of Magnesia) 400 Mg/5 Ml Oral.susp, 30 ML PO DAILY PRN for CONSTIPATION-7TH LINE, (Reported) Entered as Reported by: RICHARD CASIANO on 05/25/19 105 Metformin HCl (Metformin HCl) 500 Mg Tablet, 500 MG PO BID, (Reported) Entered as Reported by: RICHARD CASIANO on 05/25/19 105 Mirtazapine (Mirtazapine) 30 Mg Tablet, 30 MG PO HS, (Reported) Entered as Reported by: RICHARD CASIANO on 05/25/19 1050 Multivitamin with Minerals (Multivitamins with Minerals) 1 Each Tablet, 1 TAB PO DAILY, (Reported) Entered as Reported by: RICHARD CASIANO on 05/25/19 1050 Polyethylene Glycol 3350 (Miralax) 17 Gm Powd.pack, 17 GM PO DAILY, (Reported) Entered as Reported by: RICHARD CASIANO on 05/25/19 1050 Polyethylene Glycol 3350 (Miralax) 17 Gm Powd.pack, 17 GM PO DAILY PRN for CONSTIPATION-2ND LINE, (Reported) Entered as Reported by: RICHARD CASIANO on 05/25/19 1053 Potassium Chloride (Potassium Chloride) 20 Meq/15 Ml Liquid, 15 ML PO DAILY, (Reported) Entered as Reported by: RICHARD CASIANO on 05/25/19 105 Pravastatin Sodium (Pravastatin Sodium) 20 Mg Tablet, 20 MG PO HS, (Reported) Entered as Reported by: RICHARD CASIANO on 05/25/19 105 Sennosides/Docusate Sodium (Senna S Tablet) 1 Each Tablet, 1 TAB PO DAILY, (Reported) Entered as Reported by: PETER MUKHERJEE on 09/22/15 0338 Tamsulosin HCl (Flomax) 0.4 Mg Cap, 0.4 MG PO BID Prescribed by: MIGUEL HENSON on 06/01/19 0831 Ziprasidone HCl (Ziprasidone HCl) 20 Mg Capsule, 20 MG PO DAILY, (Reported) Entered as Reported by: RICHARD CASIANO on 05/25/19 105 Ziprasidone HCl (Ziprasidone HCl) 40 Mg Capsule, 40 MG PO HS, (Reported) Entered as Reported by: RICHARD CASIANO on 05/25/19 1050 Review of Systems Review of Systems Constitutional: see HPI Unable to determine meaningful review of systems due to patient's altered mental status and clinical condition. Past Wgqzqxh-Mvuxot-Xkfnzi Hx Patient Social History Tobacco Use?: No Immunizations Up To Date Tetanus Booster (TDap): Unknown Seasonal Allergies Seasonal Allergies: No Past Medical History Surgeries: Yes (LEFT HIP SURGERY) Orthopedic Respiratory: No Cardiac: Yes High Cholesterol Neurological: Yes Dementia, Stroke Reproductive Disorders: No Genitourinary: Yes (CHRONIC RUBY) UTI-Chronic Gastrointestinal: Yes Chronic Constipation Musculoskeletal: No Endocrine: Yes Diabetes, Non-Insulin dep HEENT: No Loss of Vision: Denies Cancer: No Psychosocial: Yes (pseudo-bulbar affect, delusional disorder) Anxiety, Depression Integumentary: No Blood Disorders: No Family Medical History Patient reports no known family medical history. No Pertinent Family Hx Physical Exam-Suspected Sepsis Physical Exam Vital Signs Vital Signs - First Documented 05/24/23 18:13 Temp 36.3 Pulse 91 Resp 18 B/P (MAP) 97/65 (76) Pulse Ox 96 Capillary Refill : Less Than 3 Seconds Blood Pressure Mean: 76 Height, Weight, BMI Height: 6'0.00" Weight: 148lbs. 4.5oz. 67.853443ny; 22.00 BMI Method:Estimated General Appearance: Other (Eyes open but does not answer questions nor follows commands. He is resting curled up and resist change to this position. He is in not in obvious distress otherwise.) Respiratory: Lungs Clear, Normal Breath Sounds Cardiovascular: No Murmur, Tachycardia Gastrointestinal: Non Tender, Soft Back: Normal Inspection, No CVA Tenderness, No Vertebral Tenderness Extremity: Non Tender, No Calf Tenderness, No Pedal Edema Neurologic/Psychiatric: Other (Does awake to verbal but does not answer questions or follows commands) Skin: normal color, warm/dry Focused Exam Lactate Level 05/24/23 18:23: Lactic Acid Level 2.55*H Lactic Acid Level Laboratory Tests Test 05/24/23 18:23 Lactic Acid Level 2.55 MMOL/L (0.50-2.00) *H Progress/Results/Core Measures Suspected Sepsis SIRS Temperature: Pulse: 91 Respiratory Rate: 18 Laboratory Tests 05/24/23 18:23: White Blood Count 9.3 Blood Pressure 97 /65 Mean: 76 05/24/23 18:23: Lactic Acid Level 2.55*H Laboratory Tests 05/24/23 18:23: Creatinine 1.40H, INR Comment 1.1, Platelet Count 265, Total Bilirubin 0.9 Results/Orders Lab Results Laboratory Tests Test 05/24/23 18:23 05/24/23 19:32 Range/Units White Blood Count 9.3 4.3-11.0 10^3/uL Red Blood Count 5.18 4.30-5.52 10^6/uL Hemoglobin 14.3 13.3-17.7 g/dL Hematocrit 44 40-54 % Mean Corpuscular Volume 85 80-99 fL Mean Corpuscular Hemoglobin 28 25-34 pg Mean Corpuscular Hemoglobin Concent 32 32-36 g/dL Red Cell Distribution Width 13.9 10.0-14.5 % Platelet Count 265 130-400 10^3/uL Mean Platelet Volume 10.4 9.0-12.2 fL Immature Granulocyte % (Auto) 0 % Neutrophils (%) (Auto) 63 42-75 % Lymphocytes (%) (Auto) 29 12-44 % Monocytes (%) (Auto) 7 0-12 % Eosinophils (%) (Auto) 1 0-10 % Basophils (%) (Auto) 0 0-10 % Neutrophils # (Auto) 5.8 1.8-7.8 10^3/uL Lymphocytes # (Auto) 2.7 1.0-4.0 10^3/uL Monocytes # (Auto) 0.7 0.0-1.0 10^3/uL Eosinophils # (Auto) 0.1 0.0-0.3 10^3/uL Basophils # (Auto) 0.0 0.0-0.1 10^3/uL Immature Granulocyte # (Auto) 0.0 0.0-0.1 10^3/uL Prothrombin Time 14.6 12.2-14.7 SEC INR Comment 1.1 0.8-1.4 Activated Partial Thromboplast Time 29 24-35 SEC Sodium Level 143 135-145 MMOL/L Potassium Level 4.4 3.6-5.0 MMOL/L Chloride Level 108 H 98-107 MMOL/L Carbon Dioxide Level 21 21-32 MMOL/L Anion Gap 14 5-14 MMOL/L Blood Urea Nitrogen 63 H 7-18 MG/DL Creatinine 1.40 H 0.60-1.30 MG/DL Estimat Glomerular Filtration Rate 53 BUN/Creatinine Ratio 45 Glucose Level 311 H 70-105 MG/DL Lactic Acid Level 2.55 *H 0.50-2.00 MMOL/L Calcium Level 9.3 8.5-10.1 MG/DL Corrected Calcium 9.5 8.5-10.1 MG/DL Total Bilirubin 0.9 0.1-1.0 MG/DL Aspartate Amino Transf (AST/SGOT) 13 5-34 U/L Alanine Aminotransferase (ALT/SGPT) 10 0-55 U/L Alkaline Phosphatase 93 40-136 U/L Total Protein 7.7 6.4-8.2 GM/DL Albumin 3.7 3.2-4.5 GM/DL Urine Color DARK YELLOW Urine Clarity TURBID Urine pH 6.0 5-9 Urine Specific [place] 1.015 L 1.016-1.022 Urine Protein 2+ H NEGATIVE Urine Glucose (UA) NEGATIVE NEGATIVE Urine Ketones NEGATIVE NEGATIVE Urine Nitrite POSITIVE H NEGATIVE Urine Bilirubin NEGATIVE NEGATIVE Urine Urobilinogen 1 < = 1.0 MG/DL Urine Leukocyte Esterase 2+ H NEGATIVE Urine RBC (Auto) 3+ H NEGATIVE Urine RBC TNTC H /HPF Urine WBC TNTC H /HPF Urine Squamous Epithelial Cells 5-10 /HPF Urine Crystals NONE /LPF Urine Bacteria LARGE H /HPF Urine Casts NONE /LPF Urine Mucus SMALL H /LPF Urine Culture Indicated CULTURE PENDING My Orders Orders - CRICKET BUENO MD Cbc With Automated Diff (05/24/23 18:19) Comprehensive Metabolic Panel (05/24/23 18:19) Blood Culture (05/24/23 18:19) Sputum Culture (05/24/23 18:19) Urinalysis (05/24/23 18:19) Urine Culture (05/24/23 18:19) Protime With Inr (05/24/23 18:19) Partial Thromboplastin Time (05/24/23 18:19) Chest 1 View, Ap/Pa Only (05/24/23 18:19) Ed Iv/Invasive Line Start (05/24/23 18:19) Vital Signs Adult Sepsis Patie Q15M (05/24/23 18:19) O2 (05/24/23 18:19) Remove Rings In Anticipation O (05/24/23 18:19) Lactic Acid Analyzer (05/24/23 18:19) Ns Iv 1000 Ml (Sodium Chloride 0.9%) (05/24/23 18:19) Cefepime Injection (Maxipime Injection) (05/24/23 20:15) Vital Signs/I&O 05/24/23 18:13 Temp 36.3 Pulse 91 Resp 18 B/P (MAP) 97/65 (76) Pulse Ox 96 Capillary Refill : Less Than 3 Seconds Blood Pressure Mean: 76 Progress Note : Progress Note Seen and evaluated. We will go ahead and initiate sepsis protocol due to concerns for urinary tract infection. Change in status appears to be from today per EMS report. Sepsis protocol to include IV, CBC, CMP, blood cultures and lactic acid ordered. UA ordered. We will get chest x-ray. Normal saline 1 L bolus ordered. EMS reports blood glucose in the upper 200s range. We will verify with chemistry. Nursing will follow-up with [facility] to determine when the Ruby catheter was placed and we will replace it if it has not been done recently. Monitor patient. Differential diagnosis includes sepsis, urinary tract infection, dehydration, electrolyte abnormality 1908: CBC reviewed and is grossly normal. CMP shows mild renal insufficiency and elevated glucose but otherwise grossly normal electrolytes. Lactic acid is elevated at 2.55 and coags are normal. Chest x-ray reviewed by me shows question of right perihilar infiltrate in the mid lung aspect on my interpretation. We are pending UA. 2006: UA is nitrite positive and concerning for urinary tract infection. This in the setting of probable right-sided pneumonia, admission is indicated. I did discuss the case with Dr. Dorman, on- call for hospitalist service and he accepts patient for admission, inpatient status. I will write bridge orders. Cefepime 1 g IV ordered for coverage for both pneumonia and UTI pending cultures. Patient is doing a little better after fluids and has talked a little bit and seems to be responding more. Patient to go to [facility] floor. Patient is DNR. Diagnostic Imaging Diagonstic Imaging: Xray Plain Films/CT/US/NM/MRI: chest Comments [facility]. [place], [place] NAME: MARK SALDAÑA [facility] REC#: [id number] PT STATUS: REG ER : 1950 PHYSICIAN: CRICKET BUENO MD ADMIT DATE: 05/24/23/ER Draft Date of Exam:05/24/23 CHEST 1 VIEW, AP/PA ONLY Tachycardia, acute mental status change CHEST 05/24/2023 COMPARISON 05/20/2019 FINDINGS: There is a focal infiltrate in the right upper lung. Heart normal. Pulmonary vasculature slightly congested. Left lung clear. No effusions or pneumothorax. IMPRESSION: 1. Right perihilar/suprahilar infiltrate suspected. Follow-up recommended to assure complete resolution. Dictated on workstation # [id number] Dict: 05/24/23 1857 Trans: 05/24/23 1901 [facility] [id number] Interpreted by: CHE TERRY MD Electronically signed by: Reviewed: Reviewed by Me Departure Communication (Admissions) Time/Spoke to Admitting Phy: 20:07 Impression Primary Impression: UTI (urinary tract infection) Qualified Codes: N30.01 - Acute cystitis with hematuria Additional Impression: Pneumonia involving right lung Qualified Codes: J18.9 - Pneumonia, unspecified organism Disposition: ADMITTED INPATIENT Condition: Stable Admissions Decision to Admit Reason: Admit from ER (General) Decision to Admit/Date: May 24, 2023 Time/Decision to Admit Time: 20:07 Departure-Patient Inst. Referrals: MIGUEL HENSON DO (PCP/Family) Primary Care Physician CRICKET BUENO MD May 24, 2023 18:26
[2023-05-24 18:32] LABS: BASOPHILS % (AUTO) 0 % (0-10); EOSINOPHILS # (AUTO) 0.1 10^3/uL (0.0-0.3); EOSINOPHILS % (AUTO) 1 % (0-10); HEMATOCRIT 44 % (40-54); HEMOGLOBIN 14.3 g/dL (13.3-17.7); LYMPHOCYTES # (AUTO) 2.7 10^3/uL (1.0-4.0); LYMPHOCYTES % (AUTO) 29 % (12-44); MEAN CORPUSCULAR HEMOGLOBIN 28 pg (25-34); MEAN CORPUSCULAR HGB CONC 32 g/dL (32-36); MEAN CORPUSCULAR VOLUME 85 fL (80-99); MEAN PLATELET VOLUME 10.4 fL (9.0-12.2); MONOCYTES # (AUTO) 0.7 10^3/uL (0.0-1.0); MONOCYTES % (AUTO) 7 % (0-12); NEUTROPHILS # (AUTO) 5.8 10^3/uL (1.8-7.8); NEUTROPHILS % (AUTO) 63 % (42-75); PLATELET COUNT 265 10^3/uL (130-400); WHITE BLOOD COUNT 9.3 10^3/uL (4.3-11.0)
[2023-05-24 18:41] LABS: ALBUMIN 3.7 GM/DL (3.2-4.5)
[2023-05-24 18:42] LABS: POTASSIUM 4.4 MMOL/L (3.6-5.0)
[2023-05-24 18:43] LABS: CALCIUM 9.3 MG/DL (8.5-10.1)
[2023-05-24 18:44] LABS: INR 1.1 (0.8-1.4); PROTHROMBIN TIME PATIENT 14.6 SEC (12.2-14.7); TOTAL PROTEIN 7.7 GM/DL (6.4-8.2)
[2023-05-24 18:46] LABS: BILIRUBIN,TOTAL 0.9 MG/DL (0.1-1.0)
[2023-05-24 18:47] LABS: CREATININE SERUM 1.4 MG/DL (0.60-1.30)
--- NOTE | 2023-05-24 19:02 | Diagnostic Imaging Report ---
Tachycardia, acute mental status change CHEST 05/24/2023 COMPARISON 05/20/2019 FINDINGS: There is a focal infiltrate in the right upper lung. Heart normal. Pulmonary vasculature slightly congested. Left lung clear. No effusions or pneumothorax. IMPRESSION: 1. Right perihilar/suprahilar infiltrate suspected. Follow-up recommended to assure complete resolution. Dictated by: Dictated on workstation # [id number]
[2023-05-24 20:03] LABS: CLARITY,URINE TURBID; COLOR,URINE DARK YELLOW
[2023-05-24 20:04] LABS: BILIRUBIN,URINE NEGATIVE (NEGATIVE); GLUCOSE, URINE (UA) NEGATIVE (NEGATIVE); KETONES,URINE NEGATIVE (NEGATIVE); LEUKOCYTE ESTERASE ,URINE 2+ (NEGATIVE); NITRITE,URINE POSITIVE (NEGATIVE); PROTEIN,URINE 2+ (NEGATIVE)
[2023-05-24 20:05] LABS: BACTERIA,URINE LARGE /HPF; RBC,URINE TNTC /HPF; WBC,URINE TNTC /HPF
[2023-05-24] MEDS ORDERED: CEFEPIME 1 GM/10 ML VIAL ONE (20:13)
[2023-05-24] MEDS ORDERED: CEFEPIME INJECTION 1,000 MG in NS (IVPB) 50 ML 50 ML IV ONE (20:15)
[2023-05-24 21:15] VITALS: BP 115/69
[2023-05-24] MEDS ORDERED: NS IV 1000 ML 1,000 ML ONE (21:34)
[2023-05-24] MEDS ORDERED: ACETAMINOPHEN 650 MG SUPPOSITORY PR PRN (21:45)
[2023-05-24] MEDS ORDERED: ACETAMINOPHEN 325 MG TABLET PO PRN (21:45)
[2023-05-24] MEDS ORDERED: ONDANSETRON 4 MG/2 ML (SDV) Z0FRAN IV PRN (21:45)
[2023-05-24] MEDS: NS IV 1000 ML 1,000 ML IV SCH (23:12)
[2023-05-24 23:24] VITALS: BP 124/59
[2023-05-25 03:24] VITALS: BP 111/71
[2023-05-25] MEDS ORDERED: CEFEPIME 1,000 MG/NS 50 ML IVPB IV SCH ×2 (04:00)
[2023-05-25] MEDS: NS IV 1000 ML 1,000 ML IV SCH ×2 (06:02→18:03)
[2023-05-25 06:38] LABS: BASOPHILS # (AUTO) 0.1 10^3/uL (0.0-0.1); BASOPHILS % (AUTO) 1 % (0-10); EOSINOPHILS # (AUTO) 0.2 10^3/uL (0.0-0.3); EOSINOPHILS % (AUTO) 2 % (0-10); HEMATOCRIT 40 % (40-54); HEMOGLOBIN 12.8 g/dL (13.3-17.7); LYMPHOCYTES # (AUTO) 2.2 10^3/uL (1.0-4.0); LYMPHOCYTES % (AUTO) 28 % (12-44); MEAN CORPUSCULAR HEMOGLOBIN 27 pg (25-34); MEAN CORPUSCULAR HGB CONC 32 g/dL (32-36); MEAN CORPUSCULAR VOLUME 85 fL (80-99); MEAN PLATELET VOLUME 10.6 fL (9.0-12.2); MONOCYTES # (AUTO) 0.4 10^3/uL (0.0-1.0); MONOCYTES % (AUTO) 6 % (0-12); NEUTROPHILS % (AUTO) 63 % (42-75); PLATELET COUNT 228 10^3/uL (130-400); WHITE BLOOD COUNT 7.9 10^3/uL (4.3-11.0)
[2023-05-25 06:54] LABS: POTASSIUM 3.9 MMOL/L (3.6-5.0)
[2023-05-25 06:55] LABS: CALCIUM 8.7 MG/DL (8.5-10.1)
[2023-05-25 07:00] LABS: CREATININE SERUM 0.88 MG/DL (0.60-1.30)
[2023-05-25] MEDS ORDERED: inSUlin ASPART (NovoLOG) 1 UNIT/0.01 ML (CHARGE PER UNIT) SC SCH (07:00)
[2023-05-25 07:41] VITALS: BP 128/79
[2023-05-25] MEDS: CEFEPIME 1,000 MG/NS 50 ML IVPB IV SCH ×6 (10:52→22:14)
[2023-05-25] MEDS: inSUlin ASPART (NovoLOG) 1 UNIT/0.01 ML (CHARGE PER UNIT) SC SCH ×3 (10:53→21:41)
[2023-05-25 11:42] VITALS: BP 105/71
--- NOTE | 2023-05-25 14:10 | History & Physical-Hospitalist ---
LUCRETIAASHLEYCONRAD 05/25/23 1410: History of Present Illness HPI/Chief Complaint Paul Peters is a 72 yo care home resident with a history of dementia with behavior disturbance, psuedobulbar affect, anxiety, depression, non-insulin dependent diabetes and chronic constipation was brought to the ED on 05/24 by EMS for concerns of altered mental status. ED workup revealed perihilar/suprahilar infiltrate of the right lobe on CXR, 2+ leukocyte esterase, positive urine nitrite, 3+ urine RBCs (auto), on UA, and elevated lactic acidosis (2.55). He was admitted to [facility] for management of UTI and suspected pneumonia. Today's assessment was limited by patient's communication capabilities. Per previous notes, his care home records indicate he is non-verbal and unable to follow command. This morning answers "no" when asked to state his name, today's date or his current location. He says "no" when asked about chills, back pain, abdominal pain, N/V/D, chest pain or SOB. Date Seen 05/25/23 Attending Physician Julio Wagner DO PCP Admitting Physician: Ramsey Dorman MD Attending Physician: Ramsey Doramn MD Referring Physician Date of Admission May 24, 2023 at 20:55 Home Medications & Allergies Home Medications Reviewed patient Home Medication Reconciliation performed by pharmacy medication reconciliations marine technician and/or nursing. Patients Allergies have been reviewed. Allergies Allergies Coded Allergies haloperidol (Unverified Allergy, Mild, 04/03/14) Past Isrhlqa-Soxprk-Hiayhn Hx Patient Social History Tobacco Use?: No Smoking Status: Unknown if Ever Smoked Smokeless Tobacco Frequency: Unknown if Ever Used Use of E-Cig and/or Vaping Gustabo: Unknown if Ever Used Substance use?: No Alcohol Use?: Unable to obtain Pt feels they are or have been: Unable to obtain Immunizations Up To Date Date of Influenza Vaccine: Sep 09, 2015 First/Initial COVID19 Vaccinat: YES Second COVID19 Vaccination Jeff: YES Tetanus Booster (TDap): Unknown Date of Pneumonia Vaccine: Aug 15, 2014 Seasonal Allergies Seasonal Allergies: No Current Status Advance Directives: Unable to obtain Advance Directive Location: Copy placed in chart Communicates: Verbally Primary Language: Taiwanese Preferred Spoken Language: Taiwanese Is interpretation needed?: No Implanted or Applied Medical D: None Past Medical History Surgeries: Orthopedic High Cholesterol Dementia, Stroke UTI-Chronic Chronic Constipation Diabetes, Non-Insulin dep Loss of Vision: Denies Anxiety, Depression Blood Disorders: No Family Medical History Patient reports no known family medical history. No Pertinent Family Hx Review of Systems ROS-Unable to Obtain: Unable to obtain. Physical Exam Physical Exam Vital Signs Vital Signs - First Documented 05/24/23 05/24/23 18:13 20:51 Temp 36.3 Pulse 91 Resp 18 B/P (MAP) 97/65 (76) Pulse Ox 96 O2 Delivery Room Air Capillary Refill : Less Than 3 Seconds Height, Weight, BMI Height: 6'0.00" Weight: 148lbs. 4.4oz. [id number]; 18.64 BMI Method:Estimated General Appearance: No Apparent Distress, Thin HEENT: Moist Mucous Membranes Neck: Non Tender, Supple Respiratory: Normal Breath Sounds Cardiovascular: Regular Rate, Rhythm, No Murmur Gastrointestinal: Normal Bowel Sounds, Non Tender Back: No CVA Tenderness Extremity: No Pedal Edema Neurologic/Psychiatric: No Alert, No Oriented x3; Other (could only answer questions with "no"; records indicate his baseline is non-verbal and unable to follow commands) Skin: Normal Color, Warm/Dry Results Results/Procedures Labs Laboratory Tests 05/24/23 18:23 05/25/23 05:39 Patient resulted labs reviewed. Assessment/Plan Admission Diagnosis Altered mental status Urinary tract infection Right lobe healthcare associated pneumonia Assessment and Plan Urinary tract infection - Hx of chronic UTIs due to having chronic vanegas - Urine cultures resulted Escherichia coli on 05/25 - Cefepime 50 ml @ 100 mls/hr Healthcare-associated pneumonia - Suspected right perihilar/suprahilar infiltrate on 05/25 CXR - Cefepime 50 ml @ 100 mls/hr Altered mental status Dementia with behavior disturbance - Unclear how current state compares to baseline; per care home records patient non-verbal and does not follow commands - Current infections and/or polypharmacy may play a role - Patient on Ziprasadone at care home Non-insulin dependent diabetes - Insulin aspart sliding scale "B" ZELDA - resolved Anxiety - On lorazepam at care home Depression - On mirtazapine at care home Chronic constipation MORALES MOORE MD 05/27/23 0382: History of Present Illness Time Seen by a Provider: 11:30 Past Qxuiazm-Bglwbl-Oqkaim Hx Family Medical History Patient reports no known family medical history. Review of Systems Constitutional: see HPI Assessment/Plan Admission Diagnosis Admission Status: Inpatient Order (span 2 midnights) Reason for Inpatient Admission: Below Assessment and Plan Admitted to the hospital secondary to urinary tract infection. We will continue IV antibiotics and await cultures. There is a questionable pneumonia so we will continue on cefepime given he resides in a care home. Diagnosis/Problems Diagnosis/Problems (1) UTI (urinary tract infection) Status: Acute Qualifiers: Urinary tract infection type: acute cystitis Hematuria presence: with hematuria Qualified Codes: N30.01 - Acute cystitis with hematuria (2) Pneumonia involving right lung Status: Acute Qualifiers: Pneumonia type: due to unspecified organism Lung location: middle lobe of lung Qualified Codes: J18.9 - Pneumonia, unspecified organism (3) Decreased level of consciousness Status: Acute Supervisory-Addendum Brief Verification & Attestation Participated in pt care: history, MDM, physical Personally performed: exam, history, MDM, supervision of care Care discussed with: Medical Student Procedures: n/a Results interpretation: Verified all documentation Verification and Attestation of Medical Student E/M Service A medical student performed and documented this service in my presence. I reviewed and verified all information documented by the medical student and made modifications to such information, when appropriate. I personally performed the physical exam and medical decision making. Morales Moore, May 27, 2023,15:00 CONRAD CHAVEZ May 25, 2023 14:10 MORALES MOORE MD May 27, 2023 15:05
[2023-05-25] MEDS ORDERED: TMSL.4C PO (14:41)
[2023-05-25] MEDS ORDERED: ASPI-999 PO (14:41)
[2023-05-25] MEDS ORDERED: ACHD5005 PO (14:41)
[2023-05-25] MEDS ORDERED: POTASSIUM CL PO (14:41)
[2023-05-25 16:01] VITALS: BP 109/66
[2023-05-25 20:02] VITALS: BP 115/70
[2023-05-25] MEDS ORDERED: MILK OF MAGNESIA 400 MG/5 ML 30 ML UDC PO PRN (21:15)
[2023-05-25] MEDS ORDERED: BISACODYL 5 MG TABLET PO PRN (21:15)
[2023-05-25] MEDS: ZIPRASIDONE 20 MG (GEODON) CAP PO SCH (22:53)
[2023-05-25] MEDS: MIRTAZAPINE 15 MG (REMERON) TAB PO SCH (22:54)
[2023-05-26] VITALS (7 sets, daily range): BP systolic 96–129; BP diastolic 55–75
[2023-05-26] MEDS: NS IV 1000 ML 1,000 ML IV SCH ×3 (04:09→21:13)
[2023-05-26] MEDS: CEFEPIME 1,000 MG/NS 50 ML IVPB IV SCH ×8 (04:09→21:12)
[2023-05-26] MEDS: inSUlin ASPART (NovoLOG) 1 UNIT/0.01 ML (CHARGE PER UNIT) SC SCH ×4 (05:57→20:31)
[2023-05-26] MEDS: MULTIVIT W/MINERALS TAB (THERAGRAN M) PO SCH (08:18)
[2023-05-26] MEDS: SENNA W/DOCUSATE (SENOKOT S) TABLET PO SCH (08:18)
[2023-05-26] MEDS: HYDROcodone/ACETAMINOPHEN 5 MG/325 MG TABLET PO SCH (08:18)
[2023-05-26] MEDS: clonazePAM 0.5 MG TABLET PO SCH (08:18)
[2023-05-26] MEDS: ASPIRIN 81 MG CHEWABLE TABLET PO SCH (08:18)
[2023-05-26] MEDS: polyethylene glycoL POWDER 17 GM (MIRALAX) PACK PO SCH (08:19)
[2023-05-26] MEDS: POTASSIUM BICARB 20 MEQ (EFFER-K) TABLET PO SCH (08:23)
--- NOTE | 2023-05-26 15:57 | Progress Note - Hospitalist ---
CONRAD CHAVEZ 05/26/23 1557: Subjective HPI/CC On Admission Paul Peters is a 72 [facility] resident with a history of dementia with behavior disturbance, psuedobulbar affect, anxiety, depression, non-insulin dependent diabetes and chronic constipation was brought to the ED on 05/24 by EMS for concerns of altered mental status. ED workup revealed perihilar/suprahilar infiltrate of the right lobe on CXR, 2+ leukocyte esterase, positive urine nitrite, 3+ urine RBCs (auto), on UA, and elevated lactic acidosis (2.55). He was admitted to [facility] for management of UTI and suspected pneumonia. Today's assessment was limited by patient's communication capabilities. Per previous notes, his [facility] records indicate he is non-verbal and unable to follow command. This morning answers "no" when asked to state his name, today's date or his current location. He says "no" when asked about chills, back pain, abdominal pain, N/V/D, chest pain or SOB. Subjective/Events-last exam Patient appeared more withdrawn and anxious today compared to yesterday. He was resistant to thorough physical examination. Evaluation was limited by patient's non-verbal status. Focused Exam Lactate Level 05/24/23 18:23: Lactic Acid Level 2.55*H 05/24/23 20:50: Lactic Acid Level 2.32*H Objective Exam Vital Signs Vital Signs Date Time Temp Pulse Resp B/P (MAP) Pulse Ox O2 Delivery O2 Flow Rate FiO2 05/26/23 15:41 36.9 90 17 112/55 (74) 94 Room Air Capillary Refill : Less Than 3 Seconds Respiratory: Lungs Clear, Normal Breath Sounds, No Accessory Muscle Use, No Respiratory Distress Cardiovascular: Regular Rate, Rhythm, No Edema Gastrointestinal: Normal Bowel Sounds, Non Tender Extremity: No Pedal Edema Skin: Normal Color Comments Difficult to complete thorough exam due to patient's disposition and inability to follow commands. Results/Procedures Lab Patient resulted labs reviewed. Assessment/Plan Assessment and Plan Assess & Plan/Chief Complaint Complicated urinary tract infection - Hx of chronic UTIs due to having chronic vanegas - Urine cultures resulted Escherichia coli on 05/25 - Cefepime 50 ml @ 100 mls/hr Healthcare-associated pneumonia - Suspected right perihilar/suprahilar infiltrate on 05/25 CXR - Blood cultures resulted coagulase negative staph of on 05/26 - Cefepime 50 ml @ 100 mls/hr Altered mental status Dementia with behavior disturbance - Unclear how current state compares to baseline; per [facility] records patient non-verbal and does not follow commands - Current infections and/or polypharmacy may play a role - Ziprasadone 20 mg Non-insulin dependent diabetes - Insulin aspart sliding scale "B" ZELDA - resolved Anxiety - Clonazepam 0.5 mg Depression - Mirtazapine 30 mg Chronic constipation - Bisadocyl 5 mg - MORALES Becerra MD 05/26/23 1625: Objective Exam General Appearance: Chronically ill Assessment/Plan Assessment and Plan Assess & Plan/Chief Complaint Patient is doing better today. His urine culture is growing E. coli but susceptibilities are not back yet. Keep him in the hospital and IV antibiotics and await sensitivities. Hopefully home tomorrow. Supervisory-Addendum Brief Verification & Attestation Participated in pt care: history, MDM, physical Personally performed: exam, history, MDM, supervision of care Care discussed with: Medical Student Procedures: n/a Results interpretation: Verified all documentation Verification and Attestation of Medical Student E/M Service A medical student performed and documented this service in my presence. I reviewed and verified all information documented by the medical student and made modifications to such information, when appropriate. I personally performed the physical exam and medical decision making. Morales Moore, May 26, 2023,16:25 CONRAD CHAVEZ May 26, 2023 15:57 MORALES MOORE MD May 26, 2023 16:25
[2023-05-26] MEDS ORDERED: TAMSULOSIN 0.4 MG (FLOMAX) CAP PO SCH (18:00)
[2023-05-26] MEDS: MIRTAZAPINE 15 MG (REMERON) TAB PO SCH (19:22)
[2023-05-26] MEDS: ZIPRASIDONE 20 MG (GEODON) CAP PO SCH (19:22)
[2023-05-27 04:05] VITALS: BP 103/70
[2023-05-27] MEDS: CEFEPIME 1,000 MG/NS 50 ML IVPB IV SCH ×4 (04:05→10:06)
[2023-05-27] MEDS: inSUlin ASPART (NovoLOG) 1 UNIT/0.01 ML (CHARGE PER UNIT) SC SCH ×2 (06:02→10:51)
[2023-05-27 07:32] VITALS: BP 127/61
[2023-05-27] MEDS: POTASSIUM BICARB 20 MEQ (EFFER-K) TABLET PO SCH (08:12)
[2023-05-27] MEDS: clonazePAM 0.5 MG TABLET PO SCH (08:12)
[2023-05-27] MEDS: HYDROcodone/ACETAMINOPHEN 5 MG/325 MG TABLET PO SCH (08:12)
[2023-05-27] MEDS: polyethylene glycoL POWDER 17 GM (MIRALAX) PACK PO SCH (08:12)
[2023-05-27] MEDS: MULTIVIT W/MINERALS TAB (THERAGRAN M) PO SCH (08:12)
[2023-05-27] MEDS: ASPIRIN 81 MG CHEWABLE TABLET PO SCH (08:12)
[2023-05-27] MEDS: SENNA W/DOCUSATE (SENOKOT S) TABLET PO SCH (08:12)
[2023-05-27] MEDS: NS IV 1000 ML 1,000 ML IV SCH ×2 (08:22→10:05)
[2023-05-27] MEDS ORDERED: CEPH500T PO (10:55)
--- NOTE | 2023-05-27 10:55 | Discharge Inst-Simple/Standard ---
Discharge Inst-Standard Discharge Medications New, Converted or Re-Newed RX: Transmitted to Pharmacy Patient Instructions/Follow Up Plan of Care/Instructions/FU: Please continue to take your medications as written. Please follow up with your primary care doctor to follow up this hospital stay. Activity as Tolerated: Yes Discharge Diet: No Restrictions Return to The Hospital For: Chest pain, shortness of breath, fever, weakness, if you feel you are getting worse. MORALES ESPITIA MD May 27, 2023 10:55
[2023-05-27 11:14] VITALS: BP 115/59
--- NOTE | 2023-05-27 14:03 | Discharge Summary ---
CONRAD CHAVEZ 05/27/23 1403: Diagnosis/Chief Complaint Date of Admission May 24, 2023 at 20:55 Date of Discharge Discharge Date: May 27, 2023 Admission Diagnosis Altered mental status Urinary tract infection Healthcare associated right-sided pneumonia Primary Care Julio Wagner DO Discharge Diagnosis Urinary tract infection Healthcare association right sided pneumonia Discharge Summary Discharge Physical Exam Allergies: Coded Allergies: haloperidol (Unverified Allergy, Mild, 04/03/14) Vitals & I&Os Vital Signs Date Time Temp Pulse Resp B/P (MAP) Pulse Ox O2 Delivery O2 Flow Rate FiO2 05/27/23 11:14 37.0 85 18 115/59 (77) 97 Room Air General Appearance: No Apparent Distress Respiratory: Chest Non Tender, Lungs Clear Cardiovascular: Regular Rate, Rhythm, No Edema, Normal Peripheral Pulses Gastrointestinal: Normal Bowel Sounds, No Organomegaly Skin: Normal Color, Warm/Dry Neurologic/Psychiatric: No Alert, No Oriented x3 Hospital Course Paul Peters is a 72 yo [facility] resident with a history of dementia with behavior disturbance, psuedobulbar affect, anxiety, depression, non-insulin dependent diabetes and chronic constipation was brought to the ED on 05/24 by EMS for concerns of altered mental status. ED workup revealed perihilar/suprahilar infiltrate of the right lobe on CXR, 2+ leukocyte esterase, positive urine nitrite, 3+ urine RBCs (auto), on UA, and elevated lactic acidosis (2.55). His WBC, heart rate, and temperature were within normal ranges. He was started on Cepefime and admitted to [facility] for further management of UTI and suspected pneumonia. Per [facility] he is non- verbal and unable to follow commands. Assessments during his visit were limited by the patient's communication capabilities. His clinical status remain unchanged throughout his stay. On 05/27, he was discharged with 5 day cefalexin. Labs (last 24 hrs) Laboratory Tests 05/26/23 15:26: Glucometer 104 05/26/23 20:16: Glucometer 194H 05/27/23 04:42: Glucometer 167H 05/27/23 10:39: Glucometer 175H Microbiology 05/24/23 Urine Culture - Final, Complete Escherichia coli 05/24/23 Blood Culture - Preliminary, Resulted No growth Patient resulted labs reviewed. Pending Labs Laboratory Tests 05/27/23 10:39: Glucometer 175 Discharge Home Medications: Active Scripts Active Cephalexin 500 Mg Tablet 500 Mg PO BID Reported [Potassium Cl] 20MEQ Soln 15 Ml PO DAILY Hydrocodone-Acetamin 5-325 mg (Hydrocodone/Acetaminophen) 5 Mg-325 Mg Tablet 1 Ea PO DAILY Flomax (Tamsulosin HCl) 0.4 Mg Cap 0.4 Mg PO 1800 Aspirin 81 Mg Tab.chew 81 Mg PO DAILY Miralax (Polyethylene Glycol 3350) 17 Gram Powd.pack 17 Gm PO DAILY Pravastatin Sodium 20 Mg Tablet 20 Mg PO HS Mirtazapine 30 Mg Tablet 30 Mg PO HS Milk of Magnesia (Magnesium Hydroxide) 400 Mg/5 Ml Oral.susp 30 Ml PO DAILY PRN Metformin HCl 500 Mg Tablet 500 Mg PO BID Ziprasidone HCl 20 Mg Capsule 20 Mg PO HS Clonazepam 0.5 Mg Tablet 0.5 Mg PO DAILY Bisacodyl 5 Mg Tablet.dr 5 Mg PO DAILY PRN Calcium 600 + Vit D 400 Tablet (Calcium Carbonate/Vitamin D3) 1 Each Tablet 1 Tab PO BID Multivitamins with Minerals (Multivitamin with Minerals) 1 Each Tablet 1 Tab PO DAILY Senna S Tablet (Sennosides/Docusate Sodium) 8.6 Mg-50 Mg Tablet 1 Tab PO DAILY Instructions to patient/family Please see electronic discharge instructions given to patient. MORALES MOORE MD 05/27/23 1507: Discharge Summary Discharge Physical Exam Allergies: Coded Allergies: haloperidol (Unverified Allergy, Mild, 04/03/14) Discussion & Recommendations Discharge Planning: >30 minutes discharge planning Supervisory-Addendum Brief Verification & Attestation Participated in pt care: history, MDM, physical Personally performed: exam, history, MDM, supervision of care Care discussed with: Medical Student Procedures: n/a Results interpretation: Verified all documentation Verification and Attestation of Medical Student E/M Service A medical student performed and documented this service in my presence. I reviewed and verified all information documented by the medical student and made modifications to such information, when appropriate. I personally performed the physical exam and medical decision making. Morales Moore, May 27, 2023,15:07 CONRAD CHAVEZ May 27, 2023 14:03 MORALES MOORE MD May 27, 2023 15:07
[2023-05-27 16:25] VITALS: BP 115/59
--- NOTE | 2023-05-28 11:53 | Physician Query Clarification ---
PQ-Link Infection to Dev/Proc Admission/Discharge Admission Date: May 24, 2023 at 20:55 Discharge Date: May 27, 2023 at 16:25 Dr. Moore, The medical record reflects the following clinical scenario: History/Risk Factors: chronic vanegas, UTI, pneumonia Clinical Findings: urine very dark, puss noted, urine culture E. coli Treatment: IV Cefepime Question: Can you specify if the UTI is due to/associated with vanegas catheter? Please document a response in Progress Note or Discharge Summary. 1. Yes - E. coli UTI is due to/associated with vanegas catheter 2. No - E. coli UTI is not due to/associated with vanegas catheter. 3. Other, with explanation of the clinical findings. 4. Clinically undetermined, no explanation for the clinical findings. PHYSICIAN RESPONSE Specify if infection: 2 In responding to this query, please exercise your independent professional judgment. The purpose of this communication is to more accurately reflect the complexity of your patients condition. The fact that a question is asked does not imply that any particular answer is desired or expected. Thank you for your timely response to this clarification. Requestors name: Adrian THIS PHYSICIAN QUERY FORM IS A PERMANENT PART OF THE MEDICAL RECORD ADRIAN MARSHALL May 28, 2023 11:53 MORALES MOORE MD May 28, 2023 14:56
--- NOTE | 2023-05-28 11:57 | Physician Query Clarification ---
PQ-Intro New Diagnosis Admission/Discharge Admission Date: May 24, 2023 at 20:55 Discharge Date: May 27, 2023 at 16:25 Dr. Moore, The medical record reflects the following clinical scenario: History/Risk Factors: chronic vanegas, UTI, pneumonia Clinical Findings: Lactic acid 2.55, WBC 9.3, T 36.3, P 91, R 18, BP 97/65, preliminary blood cultures staph capitis Treatment: IV Cefepime Question: What condition best reflects the above clinical scenario? Please document a response in the Progress Noter or Discharge Summary. 1. Staph capitis sepsis 2. No sepsis 3. Other, with explanation of the clinical findings. 4. Clinically undetermined, no explanation for the clinical findings. PHYSICIAN RESPONSE What condition reflects above: 2 In responding to this query, please exercise your independent professional judgment. The purpose of this communication is to more accurately reflect the complexity of your patients condition. The fact that a question is asked does not imply that any particular answer is desired or expected. Thank you for your timely response to this clarification. Requestors name: Adrian THIS PHYSICIAN QUERY FORM IS A PERMANENT PART OF THE MEDICAL RECORD ADRIAN MARSHALL May 28, 2023 11:57 MORALES MOORE MD May 28, 2023 15:06
== END 2023-05-27 16:25 | DRG 689 ==
LOC: EDUNIT# 18:11 → ER 18:12 → 4TH 20:55
PROVIDERS: ADMIT Internal Medicine; ATTEND Internal Medicine
DX: N39.0 Urinary tract infection, site not specified (principal); J18.9 Pneumonia, unspecified organism; F03.918 Unspecified dementia, unspecified severity, with other behavioral disturbance; N17.9 Acute kidney failure, unspecified; B96.20 Unspecified Escherichia coli [E. coli] as the cause of diseases classified elsewhere; F48.2 Pseudobulbar affect; E78.00 Pure hypercholesterolemia, unspecified; Z66 Do not resuscitate; K59.09 Other constipation; F41.9 Anxiety disorder, unspecified; F32.A Depression, unspecified; E11.9 Type 2 diabetes mellitus without complications; Z91.09 Other allergy status, other than to drugs and biological substances; Z79.82 Long term (current) use of aspirin; Z79.899 Other long term (current) drug therapy; Z79.84 Long term (current) use of oral hypoglycemic drugs
CPT/HCPCS: 36415; 51702; 71045; 80048; 80053; 81000; 82947; 83605; 85025; 85610; 85730; 87040; 87077; 87088; 87186; 96374